=== PATIENT | female | born 1930 | race Caucasian/White ===

== ENCOUNTER 2018-03-06 09:57 | Inpatient (IN) | payer MEDICARE ==
[~2018-03-06] VITALS: Ht 160 cm; Wt 68.0 kg
[2018-03-06 10:00] VITALS: BP 139/90
[2018-03-06] MEDS ORDERED: FERROUS GLUCON324 M2 PO (10:12)
[2018-03-06] MEDS ORDERED: PROSTAT PO (10:12)
[2018-03-06] MEDS ORDERED: CELEBREX200 MG ORAL (10:12)
[2018-03-06] MEDS ORDERED: DOCUSATE SODIU100 MG ORAL (10:12)
[2018-03-06] MEDS ORDERED: NORCO 5-325 TA1 EACH ORAL (10:12)
[2018-03-06] MEDS ORDERED: CALCIUM CARBON500 M1 PO (10:12)
[2018-03-06] MEDS ORDERED: NORCO 10-325 T1 EACH ORAL (10:12)
[2018-03-06] MEDS ORDERED: TAMSULOSIN HCL0.4 MG ORAL (10:12)
[2018-03-06] MEDS ORDERED: MULTIVITAMINS1 EAC2 ORAL (10:12)
[2018-03-06] MEDS ORDERED: GABAPENTIN300 MG ORAL (10:12)
[2018-03-06] MEDS ORDERED: TYLENOL650 MG PO (10:12)
[2018-03-06] MEDS ORDERED: VITAMIN C500 M1 ORAL (10:12)
[2018-03-06] MEDS ORDERED: ATORVASTATIN CA10 MG ORAL (10:12)
[2018-03-06] MEDS ORDERED: ZINC SULFATE220 M1 ORAL (10:12)
[2018-03-06] MEDS ORDERED: ATENOLOL25 MG ORAL (10:12)
[2018-03-06] MEDS ORDERED: Sodium Chloride 1,400 ML IVLG ONE (10:15)
--- NOTE | 2018-03-06 10:24 | Emergency Room Report ---
History of Present Illness General Chief Complaint: General Complaint Source: Medical Record, EMS Present Illness HPI This patient is brought in by EMS. Per report, the patient has had failure to thrive and generalized weakness. They also note hematuria. The patient is nonverbal and unable to articulate any complaints. She has also stopped eating per the medical record and nursing notes. There is no other history of present illness available or documented. Allergies: Coded Allergies: No Known Allergies (Unverified , 03/06/18) Patient History Past Medical History: see triage record, HTN, AFib, dementia, psych hx, other - contractures, DU, muscle wasting. Social History: Denies: smoking, alcohol use, drug use Reviewed Nursing Documentation: PMH: Agreed; PSxH: Agreed Nursing Documentation-PMH Past Medical History: No History, Except For Hx Cardiac Problems: Yes - Afib, hyperlipidemia Hx Hypertension: Yes Hx Gastrointestinal Problems: Yes - dysphagia Review of Systems All Other Systems: limited Physical Exam Vital Signs Date Time Temp Pulse Resp B/P (MAP) Pulse Ox O2 Delivery O2 Flow Rate FiO2 03/06/18 09:51 99.9 153 24 98/64 96 Nasal Cannula 3.0 Sp02 EP Interpretation: reviewed, normal General Appearance: no apparent distress, alert, GCS 15, non-toxic, other - frail, elderly, chronically ill, contracted, non-verbal, Chronically Ill Head: normocephalic, atraumatic Eyes: bilateral eye normal inspection, bilateral eye PERRL ENT: no angioedema Neck: other - flexed. contracted. Respiratory: chest non-tender, lungs clear, normal breath sounds, no respiratory distress, no retraction, no accessory muscle use, speaking full sentences Cardiovascular #1: no edema, tachycardia, systolic murmur, irregularly irregular Gastrointestinal: normal bowel sounds, non tender, soft, non-distended, no guarding, no rebound, other - colostomy bag in place. Rectal: deferred Musculoskeletal: back normal, gait/station normal, normal range of motion, non- tender Neurologic: alert, other - non-focal. Contracted, non-verbal Psychiatric: mood/affect normal Skin: no rash, warm/dry, well hydrated, other - Multiple DU Medical Decision Making Diagnostic Impression: Primary Impression: Pyelonephritis Additional Impressions: Sepsis Pneumonia Hypernatremia Lactic acid acidosis ER Course Initially when this patient was brought in she was very tachycardic with a heart rate in the 140s and 150s. She was given aggressive IV fluid resuscitation and broad-spectrum antibiotics. She is found to have pyelonephritis. Also, chest x-ray there appears to be an early development of an opacity in the right upper lobe that could be an early pneumonia. The patient had significant improvement in her heart rate with heart rates in the 90s primarily. Overall, the patient responded well to treatment in the emergency department. She will be admitted for further evaluation and treatment. This patient is critically ill. This patient required complex medical decision- making, aggressive intervention, extensive laboratory workup and monitoring. Critical care time: 40 minutes. Laboratory Tests Test 03/06/18 10:12 03/06/18 10:25 03/06/18 10:47 White Blood Count 15.7 K/UL (4.8-10.8) H Red Blood Count 4.60 M/UL (4.20-5.40) Hemoglobin 13.3 G/DL (12.0-16.0) Hematocrit 42.1 % (37.0-47.0) Mean Corpuscular Volume 91 FL (80-99) Mean Corpuscular Hemoglobin 28.9 PG (27.0-31.0) Mean Corpuscular Hemoglobin Concent 31.7 G/DL (32.0-36.0) L Red Cell Distribution Width 13.3 % (11.6-14.8) Platelet Count 246 K/UL (150-450) Mean Platelet Volume 5.4 FL (6.5-10.1) L Neutrophils (%) (Auto) 77.5 % (45.0-75.0) H Lymphocytes (%) (Auto) 13.9 % (20.0-45.0) L Monocytes (%) (Auto) 8.1 % (1.0-10.0) Eosinophils (%) (Auto) 0.1 % (0.0-3.0) Basophils (%) (Auto) 0.4 % (0.0-2.0) Prothrombin Time 12.4 SEC (9.30-11.50) H Prothrombin Time INR 1.2 (0.9-1.1) H PTT 29 SEC (23-33) Sodium Level 147 MMOL/L (136-145) H Potassium Level 4.8 MMOL/L (3.5-5.1) Chloride Level 108 MMOL/L (98-107) H Carbon Dioxide Level 30 MMOL/L (21-32) Anion Gap 9 mmol/L (5-15) Blood Urea Nitrogen 18 mg/dL (7-18) Creatinine 0.8 MG/DL (0.55-1.30) Estimate Glomerular Filtration Rate mL/min (>60) Glucose Level 114 MG/DL (74-106) H Lactic Acid Level 3.60 mmol/L (0.4-2.0) H Calcium Level 9.1 MG/DL (8.5-10.1) Phosphorus Level 3.2 MG/DL (2.5-4.9) Magnesium Level 1.9 MG/DL (1.8-2.4) Total Bilirubin 0.6 MG/DL (0.2-1.0) Aspartate Amino Transferase (AST) 27 U/L (15-37) Alanine Aminotransferase (ALT) 16 U/L (12-78) Alkaline Phosphatase 128 U/L (46-116) H Total Creatine Kinase 59 U/L (26-308) Creatine Kinase MB 1.6 NG/ML (0.0-3.6) Creatine Kinase MB Relative Index 2.7 Total Protein 6.7 G/DL (6.4-8.2) Albumin 2.1 G/DL (3.4-5.0) L Globulin 4.6 g/dL Albumin/Globulin Ratio 0.5 (1.0-2.7) L Troponin I 0.033 ng/mL (0.000-0.056) Urine Color Yellow Urine Appearance Cloudy Urine pH 6 (4.5-8.0) Urine Specific [place] 1.020 (1.005-1.035) Urine Protein 4+ (NEGATIVE) H Urine Glucose (UA) Negative (NEGATIVE) Urine Ketones 3+ (NEGATIVE) H Urine Blood 5+ (NEGATIVE) H Urine Nitrite Negative (NEGATIVE) Urine Bilirubin 1+ (NEGATIVE) H Urine Ictotest Negative (NEGATIVE) Urine Urobilinogen Normal MG/DL (0.0-1.0) Urine Leukocyte Esterase 3+ (NEGATIVE) H Urine RBC 30-40 /HPF (0 - 2) H Urine WBC Tntc /HPF (0 - 2) H Urine Squamous Epithelial Cells Few /LPF (NONE/OCC) Urine Bacteria Few /HPF (NONE) Microbiology Date/Time Source Procedure Growth Status 03/06/18 10:12 Nasal Nares Influenza Types A,B Antigen (NGA) - Final Complete EKG Diagnostic Results Rate: tachycardiac Rhythm: other - S.tachycardia ST Segments: no acute changes Rhythm Strip Diag. Results EP Interpretation: yes Rate: 130's Rhythm: no PVC's, no ectopy, other - S.tachycardia Chest X-Ray Diagnostic Results Chest X-Ray Diagnostic Results : Chest X-Ray Ordered: Yes # of Views/Limited/Complete: 1 View Indication: Other EP Interpretation: No Interpretation: other - Questionable opacity RUL Impression: Other - See above Electronically Signed by: Halima Chery DO Last Vital Signs Date Time Temp Pulse Resp B/P (MAP) Pulse Ox O2 Delivery O2 Flow Rate FiO2 03/06/18 09:51 99.9 153 24 98/64 96 Nasal Cannula 3.0 Disposition: ADMITTED INPATIENT Condition: Serious Halima Chery DO Mar 06, 2018 10:24
[2018-03-06 10:38] LABS: BASOPHILS % (AUTO) 0.4 % (0.0-2.0); EOSINOPHILS % (AUTO) 0.1 % (0.0-3.0); HEMATOCRIT 42.1 % (37.0-47.0); HEMOGLOBIN 13.3 G/DL (12.0-16.0); LYMPHOCYTES % (AUTO) 13.9 % (20.0-45.0); MEAN CORPUSCULAR VOLUME 91 FL (80-99); MONOCYTES % (AUTO) 8.1 % (1.0-10.0); NEUTROPHILS % (AUTO) 77.5 % (45.0-75.0); PLATELET COUNT 246 K/UL (150-450); RED CELL DISTRIBUTION WIDTH 13.3 % (11.6-14.8); WHITE BLOOD COUNT 15.7 K/UL (4.8-10.8)
[2018-03-06 10:50] LABS: ANION GAP 9 mmol/L (5-15); BLOOD UREA NITROGEN 18 mg/dL (7-18); CALCIUM 9.1 MG/DL (8.5-10.1); CARBON DIOXIDE 30 MMOL/L (21-32); CHLORIDE 108 MMOL/L (98-107); CREATININE 0.8 MG/DL (0.55-1.30); POTASSIUM 4.8 MMOL/L (3.5-5.1); SODIUM 147 MMOL/L (136-145)
[2018-03-06 10:53] LABS: INR 1.2 (0.9-1.1)
--- NOTE | 2018-03-06 10:59 | Diagnostic Imaging Report ---
Indication: Shortness of breath Technique: XRAY Chest 1v Comparison: None Findings: Limited exam with patient rotated and leaning to the left. Heart size appears within the upper limits for normal. Atherosclerotic calcifications noted in a tortuous aorta. There is some subtle patchy opacities in the right upper lung. Developing pneumonia not excludable. No pleural effusion or pneumothorax. There is osteopenia and degenerative change of the spine. Impression: * Subtle patchy opacities in the right upper lung raising question for developing pneumonia. Clinical correlation/follow-up recommended. * Atherosclerotic disease. * Osteopenia.
[2018-03-06 11:02] LABS: ALANINE AMINOTRANSFERASE 16 U/L (12-78); ALBUMIN 2.1 G/DL (3.4-5.0); ALBUMIN/GLOBULIN RATIO 0.5 (1.0-2.7); ALKALINE PHOSPHATASE 128 U/L (46-116); ASPARTATE AMINO TRANSFERASE 27 U/L (15-37); BILIRUBIN,TOTAL 0.6 MG/DL (0.2-1.0); CKMB 1.6 NG/ML (0.0-3.6); CREATINE KINASE 59 U/L (26-308); PHOSPHORUS 3.2 MG/DL (2.5-4.9)
[2018-03-06] MEDS ORDERED: Meropenem 1 GM in NS 55 ML IVPB ONE (11:15)
[2018-03-06 11:35] LABS: APPEARANCE,URINE CLOUDY; BILIRUBIN, URINE 1+ (NEGATIVE); GLUCOSE, URINE (UA) NEGATIVE (NEGATIVE); KETONES,URINE 3+ (NEGATIVE); LEUKOCYTE ESTERASE ,URINE 3+ (NEGATIVE); NITRITE,URINE NEGATIVE (NEGATIVE); PH,URINE 6 (4.5-8.0); PROTEIN,URINE 4+ (NEGATIVE); UROBILINOGEN,URINE NORMAL MG/DL (0.0-1.0)
[2018-03-06 11:37] LABS: COLOR,URINE YELLOW
[2018-03-06] MEDS ORDERED: Albuterol/Ipratropium 3ml neb HHN PRN (13:30)
[2018-03-06] MEDS ORDERED: Nitroglycerin Subl 0.4mg tab SL PRN (13:30)
[2018-03-06] MEDS ORDERED: Mylanta II UD 30ml ORAL PRN (13:30)
[2018-03-06] MEDS ORDERED: Promethazine/Codeine 5ml UD ORAL PRN (13:30)
[2018-03-06] MEDS ORDERED: Miralax 17gm pkt ORAL PRN (13:30)
--- NOTE | 2018-03-06 14:24 | Consultation ---
History of Present Illness General Date patient seen: Mar 06, 2018 Chief Complaint: General Complaint Present Illness HPI 87 y/o F with hx of HTN, Afib, dysphagia, HLD, Dementia, contractures presents to ED on 03/06 with FTT and generalized weakness. Also there was reported hematuria. Allergies: Coded Allergies: No Known Allergies (Unverified , 03/06/18) Medication History Scheduled Ascorbic Acid* (Vitamin C*), 500 MG ORAL TWICE A DAY, (Reported) Atenolol* (Tenormin*), 25 MG ORAL DAILY, (Reported) Atorvastatin Calcium* (Lipitor*), 10 MG ORAL BEDTIME, (Reported) Celecoxib* (Celebrex*), 200 MG ORAL TWICE A DAY, (Reported) Docusate Sodium* (Docusate Sodium*), 100 MG ORAL TWICE A DAY, (Reported) Ferrous Gluconate (Ferrous Gluconate), 324 MG PO BID, (Reported) Gabapentin* (Gabapentin*), 300 MG ORAL THREE TIMES A DAY, (Reported) Multivitamins* (Multivitamins*), 1 TAB ORAL DAILY, (Reported) Tamsulosin Hcl (Tamsulosin Hcl*), 0.4 MG ORAL BEDTIME, (Reported) Zinc Sulfate (Zinc Sulfate*), 220 MG ORAL DAILY, (Reported) [Prostat], 30 ML PO DAILY, (Reported) Scheduled PRN Acetaminophen (Acetaminophen), 650 MG PO Q4HR PRN for Fever/Headache/Mild Pain, (Reported) Calcium Carbonate (Calcium Carbonate), 500 MG PO Q6HR PRN for For Pain, ( Reported) Hydrocodone Bit/Acetaminophen 10-325* ([place] 10-325*), 1 TAB ORAL Q4H PRN for For Pain, (Reported) Hydrocodone Bit/Acetaminophen 5-325* ([place] 5-325*), 1 TAB ORAL Q4H PRN for For Pain, (Reported) Patient History Healthcare decision maker Resuscitation status Advanced Directive on File Patient History Narrative Pmhx: as above Shx: reviewed Fhx: non contributory Physical Exam Physical Exam Narrative General Appearance: no apparent distress, alert, GCS 15, non-toxic, other - frail, elderly, chronically ill, contracted, non-verbal, Chronically Ill HEENT: normocephalic, atraumatic, bilateral eye normal inspection, bilateral eye PERRL Respiratory: chest non-tender, lungs clear, normal breath sounds, no respiratory distress, no retraction, no accessory muscle use, speaking full sentences Cardiovascular : no edema, tachycardia, systolic murmur, irregularly irregular Gastrointestinal: normal bowel sounds, non tender, soft, non-distended, no guarding, no rebound, other - colostomy bag in place. Musculoskeletal: back normal, gait/station normal, normal range of motion, non- tender Neurologic: alert, other - non-focal. Contracted, non-verbal Skin: no rash, warm/dry, well hydrated, other - Multiple DU Last 24 Hour Vital Signs Date Time Temp Pulse Resp B/P (MAP) Pulse Ox O2 Delivery O2 Flow Rate FiO2 03/06/18 14:06 98.4 103 18 128/75 100 Nasal Cannula 2.0 03/06/18 10:00 129 31 Nasal Cannula 2.0 03/06/18 10:00 100.6 129 31 139/90 99 Nasal Cannula 2.0 03/06/18 09:51 99.9 153 24 98/64 96 Nasal Cannula 3.0 Laboratory Tests Test 03/06/18 10:12 03/06/18 10:25 03/06/18 10:47 03/06/18 12:10 White Blood Count 15.7 K/UL (4.8-10.8) H Red Blood Count 4.60 M/UL (4.20-5.40) Hemoglobin 13.3 G/DL (12.0-16.0) Hematocrit 42.1 % (37.0-47.0) Mean Corpuscular Volume 91 FL (80-99) Mean Corpuscular Hemoglobin 28.9 PG (27.0-31.0) Mean Corpuscular Hemoglobin Concent 31.7 G/DL (32.0-36.0) L Red Cell Distribution Width 13.3 % (11.6-14.8) Platelet Count 246 K/UL (150-450) Mean Platelet Volume 5.4 FL (6.5-10.1) L Neutrophils (%) (Auto) 77.5 % (45.0-75.0) H Lymphocytes (%) (Auto) 13.9 % (20.0-45.0) L Monocytes (%) (Auto) 8.1 % (1.0-10.0) Eosinophils (%) (Auto) 0.1 % (0.0-3.0) Basophils (%) (Auto) 0.4 % (0.0-2.0) Prothrombin Time 12.4 SEC (9.30-11.50) H Prothromb Time International Ratio 1.2 (0.9-1.1) H Activated Partial Thromboplast Time 29 SEC (23-33) Sodium Level 147 MMOL/L (136-145) H Potassium Level 4.8 MMOL/L (3.5-5.1) Chloride Level 108 MMOL/L (98-107) H Carbon Dioxide Level 30 MMOL/L (21-32) Anion Gap 9 mmol/L (5-15) Blood Urea Nitrogen 18 mg/dL (7-18) Creatinine 0.8 MG/DL (0.55-1.30) Estimat Glomerular Filtration Rate mL/min (>60) Glucose Level 114 MG/DL (74-106) H Lactic Acid Level 3.60 mmol/L (0.4-2.0) H Pending Calcium Level 9.1 MG/DL (8.5-10.1) Phosphorus Level 3.2 MG/DL (2.5-4.9) Magnesium Level 1.9 MG/DL (1.8-2.4) Total Bilirubin 0.6 MG/DL (0.2-1.0) Aspartate Amino Transf (AST/SGOT) 27 U/L (15-37) Alanine Aminotransferase (ALT/SGPT) 16 U/L (12-78) Alkaline Phosphatase 128 U/L (46-116) H Total Creatine Kinase 59 U/L (26-308) Creatine Kinase MB 1.6 NG/ML (0.0-3.6) Creatine Kinase MB Relative Index 2.7 Total Protein 6.7 G/DL (6.4-8.2) Albumin 2.1 G/DL (3.4-5.0) L Globulin 4.6 g/dL Albumin/Globulin Ratio 0.5 (1.0-2.7) L Troponin I 0.033 ng/mL (0.000-0.056) Urine Color Yellow Urine Appearance Cloudy Urine pH 6 (4.5-8.0) Urine Specific [place] 1.020 (1.005-1.035) Urine Protein 4+ (NEGATIVE) H Urine Glucose (UA) Negative (NEGATIVE) Urine Ketones 3+ (NEGATIVE) H Urine Blood 5+ (NEGATIVE) H Urine Nitrite Negative (NEGATIVE) Urine Bilirubin 1+ (NEGATIVE) H Urine Ictotest Negative (NEGATIVE) Urine Urobilinogen Normal MG/DL (0.0-1.0) Urine Leukocyte Esterase 3+ (NEGATIVE) H Urine RBC 30-40 /HPF (0 - 2) H Urine WBC Tntc /HPF (0 - 2) H Urine Squamous Epithelial Cells Few /LPF (NONE/OCC) Urine Bacteria Few /HPF (NONE) Microbiology Date/Time Source Procedure Growth Status 03/06/18 10:12 Nasal Nares Influenza Types A,B Antigen (NGA) - Final Complete Height (Feet): 5 Height (Inches): 3.00 Weight (Pounds): 100 Medications Current Medications Medications (Trade) Dose Ordered Sig/Cele Route PRN Reason Start Time Stop Time Status Last Admin Dose Admin Acetaminophen (Tylenol) 650 mg Q4H PRN ORAL fever (temp>100.5F) 03/06/18 13:30 04/05/18 13:29 Al Hydroxide/Mg Hydroxide (Mylanta II) 30 ml Q6H PRN ORAL dyspepsia 03/06/18 13:30 04/05/18 13:29 Albuterol/ Ipratropium (Albuterol/ Ipratropium) 3 ml Q4H PRN HHN Shortness of Breath 03/06/18 13:30 03/11/18 13:29 Atenolol (Tenormin) 25 mg DAILY ORAL 03/07/18 09:00 04/06/18 08:59 Cefepime HCl 2 gm/ Dextrose 110 ml @ 220 mls/hr DAILY IV 03/06/18 15:00 03/13/18 14:59 Gabapentin (Neurontin) 300 mg THREE TIMES A DAY ORAL 03/06/18 18:00 04/05/18 17:59 Heparin Sodium (Porcine) (Heparin 5000 units/ml) 5,000 units EVERY 12 HOURS SUBQ 03/06/18 21:00 04/05/18 20:59 Nitroglycerin (Ntg) 0.4 mg Q5M PRN SL Prn Chest Pain 03/06/18 13:30 04/05/18 13:29 Ondansetron HCl (Zofran) 4 mg Q6H PRN IVP Nausea & Vomiting 03/06/18 13:30 04/05/18 13:29 Polyethylene Glycol (Miralax) 17 gm DAILYPRN PRN ORAL Constipation 03/06/18 13:30 04/05/18 13:29 Promethazine HCl/ Codeine (Phenergan with Codeine) 5 ml Q4H PRN ORAL For Cough 03/06/18 13:30 04/05/18 13:29 Tamsulosin HCl (Flomax) 0.4 mg BEDTIME ORAL 03/06/18 21:00 04/05/18 20:59 Temazepam (Restoril) 15 mg HSPRN PRN ORAL Insomnia 03/06/18 13:30 03/13/18 13:29 Vancomycin HCl (Vanco rx to dose) 1 ea DAILY PRN MISC Per rx protocol 03/06/18 13:30 04/05/18 13:29 Vancomycin HCl 500 mg/Dextrose 110 ml @ 110 mls/hr Q24H IVPB 03/07/18 16:00 03/12/18 15:59 Vancomycin HCl 1 gm/Dextrose 275 ml @ 183.708 mls/hr ONCE ONCE IVPB 03/06/18 16:00 03/06/18 17:29 Assessment/Plan Assessment/Plan Abx: IV Vancomycin 03/06- Cefepime 03/06 Meropenem x1 03/06 Assessment: Sepsis 2ry to UTI and prob early PNA -u/a wbc tntc, nit neg, luek +3; ucx p -CXR: Subtle patchy opacities in the right upper lung raising question for developing pneumonia. Clinical correlation/follow-up recommended. -influenza sc Low grade fever Leukocytosis FTT HTN Afib dysphagia HLD Dementia contractures Plan: -Continue empiric IV Vancomycin and Cefepime pending cultures -sp cx, legionella ag urine -f/u cx -Monitor CBC/CMP, temperatures -aspiration precautions Thank you for this consultation. Will continue to follow along with you. Discussed with Sussy Cole M.D. Mar 06, 2018 14:24
[2018-03-06] MEDS: Cefepime 2gm/D5W 110ml IV SCH ×2 (15:07)
[2018-03-06] MEDS ORDERED: Vancomycin 1gm/D5W 275ml IVPB ONE ×2 (16:00)
[2018-03-06 20:00] VITALS: BP 102/82
[2018-03-06] MEDS ORDERED: Tamsulosin 0.4mg cap ORAL SCH (21:00)
[2018-03-06] MEDS ORDERED: Cefepime HCl 1 GM in D5W 55 ML IV SCH (21:00)
[2018-03-06] MEDS: Heparin 5000 units/ml inj SUBQ SCH (22:11)
[2018-03-07] VITALS: BP 115/83
[2018-03-07 06:32] LABS: BASOPHILS % (AUTO) 0.7 % (0.0-2.0); EOSINOPHILS % (AUTO) 0.4 % (0.0-3.0); HEMATOCRIT 37.1 % (37.0-47.0); LYMPHOCYTES % (AUTO) 18.4 % (20.0-45.0); MEAN CORPUSCULAR VOLUME 93 FL (80-99); MONOCYTES % (AUTO) 10.4 % (1.0-10.0); NEUTROPHILS % (AUTO) 70.1 % (45.0-75.0); PLATELET COUNT 164 K/UL (150-450); RED BLOOD COUNT 4.01 M/UL (4.20-5.40); RED CELL DISTRIBUTION WIDTH 13.4 % (11.6-14.8); WHITE BLOOD COUNT 10.2 K/UL (4.8-10.8)
[2018-03-07 07:07] LABS: ALBUMIN 1.8 G/DL (3.4-5.0); ANION GAP 9 mmol/L (5-15); BLOOD UREA NITROGEN 15 mg/dL (7-18); CALCIUM 8.9 MG/DL (8.5-10.1); CARBON DIOXIDE 26 MMOL/L (21-32); CHLORIDE 114 MMOL/L (98-107); CREATININE 0.7 MG/DL (0.55-1.30); POTASSIUM 4.5 MMOL/L (3.5-5.1); SODIUM 149 MMOL/L (136-145)
[2018-03-07 08:00] VITALS: BP 115/69
[2018-03-07] MEDS ORDERED: Atenolol 25mg tab ORAL SCH (09:00)
[2018-03-07] MEDS: Cefepime 2gm/D5W 110ml IV SCH ×2 (09:11)
[2018-03-07] MEDS: Heparin 5000 units/ml inj SUBQ SCH ×2 (09:12→20:40)
[2018-03-07 12:00] VITALS: BP 103/62
--- NOTE | 2018-03-07 14:36 | GI Initial Consult Note ---
History of Present Illness General Date patient seen: Mar 07, 2018 Reason for Hospitalization: General Complaint Referring physician: LANA OSBORNE Reason for Consultation: Dysphagia Present Illness HPI This patient is brought in by EMS. Per report, the patient has had failure to thrive and generalized weakness. They also note hematuria. The patient is nonverbal and unable to articulate any complaints. She has also stopped eating per the medical record and nursing notes. There is no other history of present illness available or documented. GI consulted for dysphasia. ROS limited, the patient was seen awake and alert nonverbal with no active signs of nausea or vomiting. Per report from the speech therapist the patient unable to follow commands and participate in the swallow study. No video swallow performed. Labs reviewed; resolved leukocytosis, hypernatremia, elevated alkaline phosphatase. No anemia. Unknown history of endoscopic or colonoscopy. Home Meds Reported Medications Acetaminophen (Acetaminophen) 650 Mg Supp.rect, 650 MG PO Q4HR PRN for Fever/ Headache/Mild Pain, SUPP 0 Refills 03/06/18 Hydrocodone Bit/Acetaminophen 5-325* ([place] 5-325*) 1 Each Tablet, 1 TAB ORAL Q4H PRN for For Pain, TAB 0 Refills 03/06/18 Hydrocodone Bit/Acetaminophen 10-325* ([place] 10-325*) 1 Each Tablet, 1 TAB ORAL Q4H PRN for For Pain, TAB 0 Refills PRN PAIN 03/06/18 Calcium Carbonate (CALCIUM CARBONATE) 500 Mg Tablet, 500 MG PO Q6HR PRN for For Pain, TAB 03/06/18 Tamsulosin Hcl (TAMSULOSIN HCL*) 0.4 Mg Cap.er.24h, 0.4 MG ORAL BEDTIME, CAP 03/06/18 [Prostat] No Conflict Check, 30 ML PO DAILY 03/06/18 Zinc Sulfate (ZINC SULFATE*) 220 Mg Capsule, 220 MG ORAL DAILY, CAP 0 Refills 03/06/18 Multivitamins* (MULTIVITAMINS*) 1 Each Tablet, 1 TAB ORAL DAILY, TAB 0 Refills 03/06/18 Atorvastatin Calcium* (LIPITOR*) 10 Mg Tablet, 10 MG ORAL BEDTIME, TAB 03/06/18 Gabapentin* (GABAPENTIN*) 300 Mg Capsule, 300 MG ORAL THREE TIMES A DAY, CAP 0 Refills 03/06/18 Ferrous Gluconate (FERROUS GLUCONATE) 324 Mg Tablet, 324 MG PO BID, TAB 03/06/18 Docusate Sodium* (DOCUSATE SODIUM*) 100 Mg Capsule, 100 MG ORAL TWICE A DAY, CAP 03/06/18 Celecoxib* (CELEBREX*) 200 Mg Capsule, 200 MG ORAL TWICE A DAY, CAP 03/06/18 Atenolol* (TENORMIN*) 25 Mg Tablet, 25 MG ORAL DAILY, TAB 03/06/18 Ascorbic Acid* (VITAMIN C*) 500 Mg Tablet, 500 MG ORAL TWICE A DAY, TAB 03/06/18 Med list reviewed/reconciled: Yes Allergies: Coded Allergies: No Known Allergies (Unverified , 03/06/18) Patient History Limited by: medical condition History Provided By: Medical Record PMH Narrative Past Medical History: see triage record, HTN, AFib, dementia, psych hx, other - contractures, DU, muscle wasting. Social History: Denies: smoking, alcohol use, drug use Reviewed Nursing Documentation: PMH: Agreed; PSxH: Agreed Nursing Documentation-PMH Past Medical History: No History, Except For Hx Cardiac Problems: Yes - Afib, hyperlipidemia Hx Hypertension: Yes Hx Gastrointestinal Problems: Yes - dysphagia Social History: Denies: smoking, alcohol use, drug use, other Review of Systems All Other Systems: limited Physical Exam Vital Signs Date Time Temp Pulse Resp B/P (MAP) Pulse Ox O2 Delivery O2 Flow Rate FiO2 03/06/18 09:51 99.9 153 24 98/64 96 Nasal Cannula 3.0 03/06/18 20:20 28 Sp02 EP Interpretation: reviewed, normal Labs Laboratory Tests Test 03/07/18 06:00 White Blood Count 10.2 K/UL (4.8-10.8) Red Blood Count 4.01 M/UL (4.20-5.40) L Hemoglobin 12.0 G/DL (12.0-16.0) Hematocrit 37.1 % (37.0-47.0) Mean Corpuscular Volume 93 FL (80-99) Mean Corpuscular Hemoglobin 29.8 PG (27.0-31.0) Mean Corpuscular Hemoglobin Concent 32.2 G/DL (32.0-36.0) Red Cell Distribution Width 13.4 % (11.6-14.8) Platelet Count 164 K/UL (150-450) Mean Platelet Volume 5.5 FL (6.5-10.1) L Neutrophils (%) (Auto) 70.1 % (45.0-75.0) Lymphocytes (%) (Auto) 18.4 % (20.0-45.0) L Monocytes (%) (Auto) 10.4 % (1.0-10.0) H Eosinophils (%) (Auto) 0.4 % (0.0-3.0) Basophils (%) (Auto) 0.7 % (0.0-2.0) Sodium Level 149 MMOL/L (136-145) H Potassium Level 4.5 MMOL/L (3.5-5.1) Chloride Level 114 MMOL/L (98-107) H Carbon Dioxide Level 26 MMOL/L (21-32) Anion Gap 9 mmol/L (5-15) Blood Urea Nitrogen 15 mg/dL (7-18) Creatinine 0.7 MG/DL (0.55-1.30) Estimat Glomerular Filtration Rate mL/min (>60) Glucose Level 89 MG/DL (74-106) Calcium Level 8.9 MG/DL (8.5-10.1) Phosphorus Level 3.0 MG/DL (2.5-4.9) Albumin 1.8 G/DL (3.4-5.0) L General Appearance: well appearing, no apparent distress, alert Head: normocephalic EENT: PERRL/EOMI, normal ENT inspection Neck: supple Respiratory: normal breath sounds, no respiratory distress Cardiovascular: normal rate Gastrointestinal: normal inspection, non tender, soft, normal bowel sounds, non -distended Rectal: deferred Genitourinary: no CVA tenderness Musculoskeletal: other - Overall weakness Skin: normal inspection, normal color, no rash, warm/dry, palpation normal, well hydrated Lymphatic: normal inspection, no adenopathy Current Medications Current Medications Medications (Trade) Dose Ordered Sig/Cele Route PRN Reason Start Time Stop Time Status Last Admin Dose Admin Acetaminophen (Tylenol) 650 mg Q4H PRN ORAL fever (temp>100.5F) 03/06/18 13:30 04/05/18 13:29 03/07/18 06:28 Al Hydroxide/Mg Hydroxide (Mylanta II) 30 ml Q6H PRN ORAL dyspepsia 03/06/18 13:30 04/05/18 13:29 Albuterol/ Ipratropium (Albuterol/ Ipratropium) 3 ml Q4H PRN HHN Shortness of Breath 03/06/18 13:30 03/11/18 13:29 Atenolol (Tenormin) 25 mg DAILY ORAL 03/07/18 09:00 04/06/18 08:59 03/07/18 09:11 Cefepime HCl 2 gm/ Dextrose 110 ml @ 220 mls/hr DAILY IV 03/06/18 15:00 03/13/18 14:59 03/07/18 09:11 Gabapentin (Neurontin) 300 mg THREE TIMES A DAY ORAL 03/06/18 18:00 04/05/18 17:59 03/07/18 09:11 Heparin Sodium (Porcine) (Heparin 5000 units/ml) 5,000 units EVERY 12 HOURS SUBQ 03/06/18 21:00 04/05/18 20:59 03/07/18 09:12 Nitroglycerin (Ntg) 0.4 mg Q5M PRN SL Prn Chest Pain 03/06/18 13:30 04/05/18 13:29 Ondansetron HCl (Zofran) 4 mg Q6H PRN IVP Nausea & Vomiting 03/06/18 13:30 04/05/18 13:29 Polyethylene Glycol (Miralax) 17 gm DAILYPRN PRN ORAL Constipation 03/06/18 13:30 04/05/18 13:29 Promethazine HCl/ Codeine (Phenergan with Codeine) 5 ml Q4H PRN ORAL For Cough 03/06/18 13:30 04/05/18 13:29 Tamsulosin HCl (Flomax) 0.4 mg BEDTIME ORAL 03/06/18 21:00 04/05/18 20:59 03/06/18 22:09 Temazepam (Restoril) 15 mg HSPRN PRN ORAL Insomnia 03/06/18 13:30 03/13/18 13:29 03/06/18 22:09 Vancomycin HCl (Vanco rx to dose) 1 ea DAILY PRN MISC Per rx protocol 03/06/18 13:30 04/05/18 13:29 Vancomycin HCl 500 mg/Dextrose 110 ml @ 110 mls/hr Q24H IVPB 03/07/18 16:00 03/12/18 15:59 GI: Plan Problems: (1) Dysphasia (2) Severe malnutrition (3) Dehydration (4) Encounter for PEG (percutaneous endoscopic gastrostomy) (5) Electrolyte imbalance Plan Possible PEG to be scheduled this Saturday [place] 10 [place] inserted today, okay to use after imaging confirmation Tube feedings per RD to goal Supportive care ppi fu labs We will follow with additional recommendations over the weekend Discussed with Dr. Velez. Thank you for this patient referral, we will follow. The patient was seen and examined at bedside and all new and available data was reviewed in the patients chart. I agree with the above findings, impression and plan. (Patient seen earlier today. Signature stamp does not reflect patient encounter time.). - MD Lissett LarsenCobre Valley Regional Medical CenterJose A GEOTHERMAL PLANT MANAGER Mar 07, 2018 14:36
--- NOTE | 2018-03-07 14:46 | Infectious Diseases Prog Note ---
Assessment/Plan Assessment/Plan Abx: IV Vancomycin 03/06- Cefepime 03/06 Meropenem x1 03/06 Assessment: Sepsis 2ry to UTI c/w bacteremia and prob early PNA -u/a wbc tntc, nit neg, luek +3; ucx >100k GNR -Bcx 06/19 GNRs -CXR: Subtle patchy opacities in the right upper lung raising question for developing pneumonia. Clinical correlation/follow-up recommended. -influenza sc neg Low grade fever, improving Leukocytosis, SP FTT HTN Afib dysphagia HLD Dementia contractures Plan: -Continue empiric IV Vancomycin and Cefepime #2 pending cultures -low threshold to switch Cefepime to Meropenem if HD decompensation -f/u sp cx, legionella ag urine -Bcx x2 -f/u cx -Monitor CBC/CMP, temperatures -aspiration precautions Subjective Allergies: Coded Allergies: No Known Allergies (Unverified , 03/06/18) Subjective afebrile in 24hr leukocytosi rseolved bacteremic GNRs Objective Vital Signs Last 24 Hour Vital Signs Date Time Temp Pulse Resp B/P (MAP) Pulse Ox O2 Delivery O2 Flow Rate FiO2 03/07/18 09:11 142 122/83 03/07/18 09:00 Nasal Cannula 2.0 03/07/18 08:00 134 03/07/18 08:00 98.5 57 20 115/69 (84) 97 03/07/18 07:55 116 20 100 Nasal Cannula 2.0 28 03/07/18 07:48 131 20 100 Nasal Cannula 2.0 03/07/18 04:00 03/07/18 04:00 66 03/07/18 03:25 116 24 99 Nasal Cannula 2.0 28 03/07/18 03:20 114 20 98 Nasal Cannula 2.0 28 03/07/18 00:00 122 03/07/18 00:00 99.1 118 20 115/83 (94) 98 03/06/18 23:46 119 22 98 Nasal Cannula 2.0 28 03/06/18 23:46 122 22 99 Nasal Cannula 2.0 28 03/06/18 21:00 Nasal Cannula 2.0 03/06/18 20:21 121 22 99 Nasal Cannula 2.0 28 03/06/18 20:20 117 22 98 Nasal Cannula 2.0 28 03/06/18 20:00 108 03/06/18 20:00 98.9 113 22 102/82 (89) 98 03/06/18 16:00 107 Height (Feet): 5 Height (Inches): 3.00 Weight (Pounds): 100 Objective General Appearance: no apparent distress, alert, GCS 15, non-toxic, other - frail, elderly, chronically ill, contracted, non-verbal, Chronically Ill HEENT: normocephalic, atraumatic, bilateral eye normal inspection, bilateral eye PERRL Respiratory: chest non-tender, lungs clear, normal breath sounds, no respiratory distress, no retraction, no accessory muscle use, speaking full sentences Cardiovascular : no edema, tachycardia, systolic murmur, irregularly irregular Gastrointestinal: normal bowel sounds, non tender, soft, non-distended, no guarding, no rebound, other - colostomy bag in place. Musculoskeletal: back normal, gait/station normal, normal range of motion, non- tender Neurologic: alert, other - non-focal. Contracted, non-verbal Skin: no rash, warm/dry, well hydrated, other - Multiple DU Microbiology Date/Time Source Procedure Growth Status 03/06/18 10:12 Blood Blood Culture - Preliminary Resulted 03/06/18 09:57 Blood Blood Culture - Preliminary Resulted 03/06/18 15:07 Sputum Induced Gram Stain - Final Resulted 03/06/18 15:07 Sputum Induced Sputum Culture Pending Resulted 03/06/18 13:20 Nasal Nares MRSA Culture - Final Staphylococcus Aureus - Mrsa Complete 03/06/18 10:12 Nasal Nares Influenza Types A,B Antigen (NGA) - Final Complete 03/06/18 10:47 Urine,Clean Catch Urine Culture - Preliminary Gram Negative Bacillus 1 Resulted Laboratory Tests Test 03/07/18 06:00 White Blood Count 10.2 K/UL (4.8-10.8) Red Blood Count 4.01 M/UL (4.20-5.40) L Hemoglobin 12.0 G/DL (12.0-16.0) Hematocrit 37.1 % (37.0-47.0) Mean Corpuscular Volume 93 FL (80-99) Mean Corpuscular Hemoglobin 29.8 PG (27.0-31.0) Mean Corpuscular Hemoglobin Concent 32.2 G/DL (32.0-36.0) Red Cell Distribution Width 13.4 % (11.6-14.8) Platelet Count 164 K/UL (150-450) Mean Platelet Volume 5.5 FL (6.5-10.1) L Neutrophils (%) (Auto) 70.1 % (45.0-75.0) Lymphocytes (%) (Auto) 18.4 % (20.0-45.0) L Monocytes (%) (Auto) 10.4 % (1.0-10.0) H Eosinophils (%) (Auto) 0.4 % (0.0-3.0) Basophils (%) (Auto) 0.7 % (0.0-2.0) Sodium Level 149 MMOL/L (136-145) H Potassium Level 4.5 MMOL/L (3.5-5.1) Chloride Level 114 MMOL/L (98-107) H Carbon Dioxide Level 26 MMOL/L (21-32) Anion Gap 9 mmol/L (5-15) Blood Urea Nitrogen 15 mg/dL (7-18) Creatinine 0.7 MG/DL (0.55-1.30) Estimat Glomerular Filtration Rate mL/min (>60) Glucose Level 89 MG/DL (74-106) Calcium Level 8.9 MG/DL (8.5-10.1) Phosphorus Level 3.0 MG/DL (2.5-4.9) Albumin 1.8 G/DL (3.4-5.0) L Current Medications Medications (Trade) Dose Ordered Sig/Cele Route PRN Reason Start Time Stop Time Status Last Admin Dose Admin Acetaminophen (Tylenol) 650 mg Q4H PRN ORAL fever (temp>100.5F) 03/06/18 13:30 04/05/18 13:29 03/07/18 06:28 Al Hydroxide/Mg Hydroxide (Mylanta II) 30 ml Q6H PRN ORAL dyspepsia 03/06/18 13:30 04/05/18 13:29 Albuterol/ Ipratropium (Albuterol/ Ipratropium) 3 ml Q4H PRN HHN Shortness of Breath 03/06/18 13:30 03/11/18 13:29 Atenolol (Tenormin) 25 mg DAILY ORAL 03/07/18 09:00 04/06/18 08:59 03/07/18 09:11 Cefepime HCl 2 gm/ Dextrose 110 ml @ 220 mls/hr DAILY IV 03/06/18 15:00 03/13/18 14:59 03/07/18 09:11 Gabapentin (Neurontin) 300 mg THREE TIMES A DAY ORAL 03/06/18 18:00 04/05/18 17:59 03/07/18 09:11 Heparin Sodium (Porcine) (Heparin 5000 units/ml) 5,000 units EVERY 12 HOURS SUBQ 03/06/18 21:00 04/05/18 20:59 03/07/18 09:12 Nitroglycerin (Ntg) 0.4 mg Q5M PRN SL Prn Chest Pain 03/06/18 13:30 04/05/18 13:29 Ondansetron HCl (Zofran) 4 mg Q6H PRN IVP Nausea & Vomiting 03/06/18 13:30 04/05/18 13:29 Polyethylene Glycol (Miralax) 17 gm DAILYPRN PRN ORAL Constipation 03/06/18 13:30 04/05/18 13:29 Promethazine HCl/ Codeine (Phenergan with Codeine) 5 ml Q4H PRN ORAL For Cough 03/06/18 13:30 04/05/18 13:29 Tamsulosin HCl (Flomax) 0.4 mg BEDTIME ORAL 03/06/18 21:00 04/05/18 20:59 03/06/18 22:09 Temazepam (Restoril) 15 mg HSPRN PRN ORAL Insomnia 03/06/18 13:30 03/13/18 13:29 03/06/18 22:09 Vancomycin HCl (Vanco rx to dose) 1 ea DAILY PRN MISC Per rx protocol 03/06/18 13:30 04/05/18 13:29 Vancomycin HCl 500 mg/Dextrose 110 ml @ 110 mls/hr Q24H IVPB 03/07/18 16:00 03/12/18 15:59 Sussy Daniel M.D. Mar 07, 2018 14:46
--- NOTE | 2018-03-07 15:55 | History & Physical ---
History and Physical History & Physicial Dictated for Int Med-Dr Scott no. [id number]. Shankar Betts MD Mar 07, 2018 15:55
[2018-03-07 16:00] VITALS: BP 81/45
[2018-03-07] MEDS ORDERED: Vancomycin 500mg/D5W 110ml IVPB SCH ×2 (16:00)
--- NOTE | 2018-03-07 16:09 | Diagnostic Imaging Report ---
Indication: Post nasogastric tube placement Technique: Supine view of the upper abdomen Comparison: none Findings: Course of nasogastric tube is indicative of placement within the right lower lobe bronchus There is some consolidation at the left lung base. The visualized bowel gas is unremarkable. A surgical clip or T-fastener is seen in the mid abdomen just to the left of midline Impression: Malposition of nasogastric tube, within a right lower lobe bronchus. Per technologist note, the nasogastric tube was removed immediately after the radiograph was taken. A subsequent radiograph documents intragastric position of a new feeding tube
--- NOTE | 2018-03-07 16:57 | Diagnostic Imaging Report ---
Indication: Status post nasogastric tube repositioning Technique: Supine view of the abdomen Comparison: One hour earlier Findings: Interim placement of a weighted nasogastric feeding tube, tip appearing coiled in the gastric fundus, in satisfactory position. Surgical hardware is seen in the bilateral iliac bones. A surgical clip or T-fastener projects in the mid abdomen to the left of midline. Bowel gas pattern is unremarkable Impression: Satisfactory nasogastric tube position. Other findings as noted
[2018-03-07] MEDS ORDERED: D5 1/2NS w/KCL 10meq 1,000 ML IV SCH (17:00)
[2018-03-07] MEDS ORDERED: Nitroglycerin Subl 0.4mg tab SL PRN (17:11)
[2018-03-07] MEDS ORDERED: Albuterol/Ipratropium 3ml neb HHN PRN (17:11)
[2018-03-07] MEDS ORDERED: Mylanta II UD 30ml ORAL PRN (17:11)
[2018-03-07] MEDS ORDERED: Promethazine/Codeine 5ml UD ORAL PRN (17:12)
[2018-03-07] MEDS ORDERED: Miralax 17gm pkt ORAL PRN (17:12)
--- NOTE | 2018-03-07 17:53 | Diagnostic Imaging Report ---
EXAM: XR Abdomen, 1 View CLINICAL HISTORY: NGT TECHNIQUE: Frontal supine view of the abdomen/pelvis. COMPARISON: No relevant prior studies available. FINDINGS: Gastrointestinal tract: Unremarkable. Bones/joints: Fixation hardware related to the pelvis. Hip replacements. Soft tissues: 2.6 cm linear structure overlying the left side of the abdomen. Location is indeterminate, could be internal or external to the patient. Differential can include foreign body. Correlate. Tubes, lines and devices: Other findings: Single view 02/15/18 at 1732. IMPRESSION: Enteric tube in the stomach.
[2018-03-07] MEDS: D5 1/2NS w/KCL 10meq 1,000 ML IV SCH (18:18)
[2018-03-07 20:00] VITALS: BP 90/48
[2018-03-07] MEDS: Tamsulosin 0.4mg cap ORAL SCH (20:39)
--- NOTE | 2018-03-07 21:00 | History and Physical Report ---
DATE OF ADMISSION: 03/06/2018 CHIEF COMPLAINT: The patient is an 87-year-old white female, who presents with a chief complaint of generalized weakness and hematuria. HISTORY OF PRESENT ILLNESS: The patient is a resident of [facility]. The patient herself is nonverbal. Much of the history and physical is taken from the patient's chart. The patient was noted to have hematuria yesterday, 03/06/2018. The patient was also found to have altered mental status with generalized weakness. The patient was transferred to [facility] emergency room for evaluation. The patient was found to have hematuria. The patient was also hypotensive. The patient was admitted for hypotension, generalized weakness, and hematuria to rule out sepsis. REVIEW OF SYSTEMS: Unable to assess secondary to the patient's mental status. PAST MEDICAL HISTORY: Significant for, 1. Dysphagia. 2. Hypertensive heart disease. 3. Hypercholesterolemia. 4. Multiple decubitus ulcers. PAST SURGICAL HISTORY: Unknown. CURRENT MEDICATIONS: 1. Vitamin C 500 mg one tablet p.o. twice daily. 2. Atenolol 25 mg p.o. daily. 3. Celebrex 200 mg p.o. twice daily. 4. Docusate sodium 100 mg p.o. twice daily. 5. Iron gluconate 324 mg p.o. twice daily. 6. Gabapentin 300 mg p.o. 3 times daily. 7. Lipitor 10 mg p.o. at bedtime. 8. Multivitamin one tablet p.o. daily. 9. Zinc sulfate 220 mg p.o. daily. 10. Pro-Stat 30 mL solution p.o. daily. 11. Tamsulosin 0.4 mg p.o. at bedtime. 12. Calcium carbonate 500 mg p.o. 4 times daily. 13. [place] 10/325 mg one tablet p.o. q.6 h. p.r.n. 14. Tylenol 650 mg p.o. q.6 hours p.r.n. ALLERGIES: No known drug allergies. SOCIAL HISTORY: The patient is a . The patient is a resident of [facility]. The patient denies tobacco or alcohol use. PHYSICAL EXAMINATION: VITAL SIGNS: Temperature 100.6, respirations 31, pulse 103 to 129, and blood pressure 102 to 139/75 to 90. GENERAL: The patient is a well-developed and well-nourished white female, in no apparent distress. HEENT: Eyes, pupils are equal and responsive to light and accommodation. Extraocular movements are intact. NECK: Supple without lymphadenopathy. CHEST: Decreased breath sounds at bilateral bases. Otherwise, clear to auscultation without wheezes or rales. CARDIOVASCULAR: Tachycardic. Regular rate and rhythm. S1, S2 are normal without murmurs, rubs, or gallops. ABDOMEN: Soft, nontender, and nondistended. Positive bowel sounds. No evidence of hepatosplenomegaly. Currently, no rebound or guarding noted. EXTREMITIES: Negative for clubbing, cyanosis, or edema. RECTAL/GENITAL: Deferred. NEUROLOGIC: Cranial nerves II through XII are grossly intact without focal deficits. LABORATORY STUDIES: WBC 15.7, hemoglobin 13.3, hematocrit 42.1, and platelets 246,000. Sodium 147, potassium 4.8, chloride 108, CO2 30, BUN 18, creatinine 0.8, and glucose 114. Lactic acid 3.6. Troponin elevated at 0.033. Urinalysis showed 4+ protein, 3+ ketones, 5+ blood, 1+ leukocyte esterase, rbc's 30 to 40, and wbc's too numerous to count. Chest x-ray revealed patchy opacities in the right upper lung consistent with pneumonia. ASSESSMENT: This is an 87-year-old white female. 1. Hematuria. 2. Generalized weakness. 3. Urinary tract infection. 4. Hematuria. 5. Pneumonia. 6. Generalized weakness. 7. Dysphagia. 8. Hypertension. 9. Hypercholesterolemia. 10. Multiple decubitus ulcers. TREATMENT: 1. Urinary tract infection. An Infectious Disease consultation has been obtained with Dr. Daniel. The patient has been started empirically on intravenous cefepime. We will follow recommendations of Infectious Disease. 2. Probable sepsis. The patient has been started empirically on vancomycin and cefepime. An Infectious Disease consultation has been obtained with Dr. Daniel. We will follow recommendations of Infectious Disease. Blood cultures and urine cultures are pending. 3. Hematuria probably secondary to urinary tract infection as above. 4. Hypertensive heart disease. Continue metoprolol as above. 5. Hypercholesteremia. Continue Lipitor as above. 6. Multiple decubitus ulcers. Shankar Betts M.D. DR: ANASTASIA JOB#: [id number] CC:
--- NOTE | 2018-03-07 23:48 | Consultation ---
History of Present Illness General Chief Complaint: General Complaint Referring physician: LANA OSBORNE Reason for Consultation: Dysphagia Present Illness HPI 87-year-old white female, who presents with a chief complaint of generalized weakness and hematuria. The patient herself is nonverbal. i am well familiar with the pt the pt is more confused than baseline with agitation Allergies: Coded Allergies: No Known Allergies (Unverified , 03/06/18) Medication History Scheduled Ascorbic Acid* (Vitamin C*), 500 MG ORAL TWICE A DAY, (Reported) Atenolol* (Tenormin*), 25 MG ORAL DAILY, (Reported) Atorvastatin Calcium* (Lipitor*), 10 MG ORAL BEDTIME, (Reported) Celecoxib* (Celebrex*), 200 MG ORAL TWICE A DAY, (Reported) Docusate Sodium* (Docusate Sodium*), 100 MG ORAL TWICE A DAY, (Reported) Ferrous Gluconate (Ferrous Gluconate), 324 MG PO BID, (Reported) Gabapentin* (Gabapentin*), 300 MG ORAL THREE TIMES A DAY, (Reported) Multivitamins* (Multivitamins*), 1 TAB ORAL DAILY, (Reported) Tamsulosin Hcl (Tamsulosin Hcl*), 0.4 MG ORAL BEDTIME, (Reported) Zinc Sulfate (Zinc Sulfate*), 220 MG ORAL DAILY, (Reported) [Prostat], 30 ML PO DAILY, (Reported) Scheduled PRN Acetaminophen (Acetaminophen), 650 MG PO Q4HR PRN for Fever/Headache/Mild Pain, (Reported) Calcium Carbonate (Calcium Carbonate), 500 MG PO Q6HR PRN for For Pain, ( Reported) Hydrocodone Bit/Acetaminophen 10-325* (Pella 10-325*), 1 TAB ORAL Q4H PRN for For Pain, (Reported) Hydrocodone Bit/Acetaminophen 5-325* (Pella 5-325*), 1 TAB ORAL Q4H PRN for For Pain, (Reported) Patient History Limited by: medical condition History Provided By: Medical Record, PMD Healthcare decision maker Resuscitation status Full Code Advanced Directive on File Past Medical/Surgical History Past Medical/Surgical History: (1) Atrial fibrillation with RVR (2) Hypernatremia (3) Pneumonia (4) Lactic acid acidosis (5) Pyelonephritis (6) Pyelonephritis (7) Sepsis (8) Pyelonephritis (9) Dehydration (10) Dysphasia (11) Electrolyte imbalance (12) Severe malnutrition (13) Encounter for PEG (percutaneous endoscopic gastrostomy) Review of Systems Psychiatric: Reports: anxiety, depressed feelings, emotional problems Physical Exam General Appearance: confused, agitated Neurologic: depressed affect Last 24 Hour Vital Signs Date Time Temp Pulse Resp B/P (MAP) Pulse Ox O2 Delivery O2 Flow Rate FiO2 03/07/18 20:08 99 Nasal Cannula 2.0 28 03/07/18 20:08 Nasal Cannula 2.0 28 03/07/18 20:00 Nasal Cannula 2.0 03/07/18 20:00 98.7 99 18 90/48 (62) 99 03/07/18 20:00 83 03/07/18 16:00 86 03/07/18 16:00 96.8 85 20 81/45 (57) 97 03/07/18 12:00 92 03/07/18 12:00 98.5 103 22 103/62 (76) 97 03/07/18 09:11 142 122/83 03/07/18 09:00 Nasal Cannula 2.0 03/07/18 08:00 134 03/07/18 08:00 98.5 57 20 115/69 (84) 97 03/07/18 07:55 116 20 100 Nasal Cannula 2.0 28 03/07/18 07:48 131 20 100 Nasal Cannula 2.0 28 03/07/18 04:00 03/07/18 04:00 66 03/07/18 03:25 116 24 99 Nasal Cannula 2.0 28 03/07/18 03:20 114 20 98 Nasal Cannula 2.0 28 03/07/18 00:00 122 03/07/18 00:00 99.1 118 20 115/83 (94) 98 Intake and Output 03/06/18 03/07/18 19:00 07:00 Intake Total 385 ml Output Total 200 ml Balance 185 ml Intake IV Total 385 ml Output Urine Total 200 ml # Voids 1 Laboratory Tests Test 03/07/18 06:00 White Blood Count 10.2 K/UL (4.8-10.8) Red Blood Count 4.01 M/UL (4.20-5.40) L Hemoglobin 12.0 G/DL (12.0-16.0) Hematocrit 37.1 % (37.0-47.0) Mean Corpuscular Volume 93 FL (80-99) Mean Corpuscular Hemoglobin 29.8 PG (27.0-31.0) Mean Corpuscular Hemoglobin Concent 32.2 G/DL (32.0-36.0) Red Cell Distribution Width 13.4 % (11.6-14.8) Platelet Count 164 K/UL (150-450) Mean Platelet Volume 5.5 FL (6.5-10.1) L Neutrophils (%) (Auto) 70.1 % (45.0-75.0) Lymphocytes (%) (Auto) 18.4 % (20.0-45.0) L Monocytes (%) (Auto) 10.4 % (1.0-10.0) H Eosinophils (%) (Auto) 0.4 % (0.0-3.0) Basophils (%) (Auto) 0.7 % (0.0-2.0) Sodium Level 149 MMOL/L (136-145) H Potassium Level 4.5 MMOL/L (3.5-5.1) Chloride Level 114 MMOL/L (98-107) H Carbon Dioxide Level 26 MMOL/L (21-32) Anion Gap 9 mmol/L (5-15) Blood Urea Nitrogen 15 mg/dL (7-18) Creatinine 0.7 MG/DL (0.55-1.30) Estimat Glomerular Filtration Rate mL/min (>60) Glucose Level 89 MG/DL (74-106) Calcium Level 8.9 MG/DL (8.5-10.1) Phosphorus Level 3.0 MG/DL (2.5-4.9) Albumin 1.8 G/DL (3.4-5.0) L Height (Feet): 5 Height (Inches): 3.00 Weight (Pounds): 100 Medications Current Medications Medications (Trade) Dose Ordered Sig/Cele Route PRN Reason Start Time Stop Time Status Last Admin Dose Admin Acetaminophen (Tylenol) 650 mg Q4H PRN ORAL fever (temp>100.5F) 03/07/18 17:11 04/05/18 17:10 Al Hydroxide/Mg Hydroxide (Mylanta II) 30 ml Q6H PRN ORAL dyspepsia 03/07/18 17:11 04/05/18 17:10 Albuterol/ Ipratropium (Albuterol/ Ipratropium) 3 ml Q4H PRN HHN Shortness of Breath 03/07/18 17:11 03/11/18 17:10 Atenolol (Tenormin) 25 mg DAILY ORAL 03/08/18 09:00 04/06/18 08:59 Cefepime HCl 2 gm/ Dextrose 110 ml @ 220 mls/hr DAILY IV 03/08/18 09:00 03/13/18 14:59 Dextrose/ Electrolytes 1,000 ml @ 75 mls/hr [id number] IV 03/07/18 17:11 04/06/18 17:10 03/07/18 18:18 Gabapentin (Neurontin) 300 mg THREE TIMES A DAY ORAL 03/07/18 18:00 04/05/18 17:59 03/07/18 18:33 Heparin Sodium (Porcine) (Heparin 5000 units/ml) 5,000 units EVERY 12 HOURS SUBQ 03/07/18 21:00 04/05/18 20:59 03/07/18 20:40 Nitroglycerin (Ntg) 0.4 mg Q5M PRN SL Prn Chest Pain 03/07/18 17:11 04/05/18 17:10 Ondansetron HCl (Zofran) 4 mg Q6H PRN IVP Nausea & Vomiting 03/07/18 17:11 04/05/18 17:10 Polyethylene Glycol (Miralax) 17 gm DAILYPRN PRN ORAL Constipation 03/07/18 17:12 04/06/18 17:11 Promethazine HCl/ Codeine (Phenergan with Codeine) 5 ml Q4H PRN ORAL For Cough 03/07/18 17:12 04/05/18 17:11 Tamsulosin HCl (Flomax) 0.4 mg BEDTIME ORAL 03/07/18 21:00 04/05/18 20:59 03/07/18 20:39 Temazepam (Restoril) 15 mg HSPRN PRN ORAL Insomnia 03/07/18 17:12 03/14/18 17:11 Vancomycin HCl (Vanco rx to dose) 1 ea DAILY PRN MISC Per rx protocol 03/08/18 09:00 04/05/18 13:29 Vancomycin HCl 500 mg/Dextrose 110 ml @ 110 mls/hr Q24H IVPB 03/08/18 16:00 03/12/18 15:59 Assessment/Plan Problem List: (1) encephalopathy due to metabolic factor Assessment/Plan Bj Bradford MD Mar 07, 2018 23:48
[2018-03-08] VITALS: BP 94/52
[2018-03-08] MEDS ORDERED: OLANZapine 2.5mg tab ORAL PRN
--- NOTE | 2018-03-08 02:52 | Pulmonology Progress Note ---
Assessment/Plan Assessment/Plan Pulmonary Consultation Note Patient seen 03/07/2018 17:25 HPI This patient is brought in by EMS. Per report, the patient has had failure to thrive and generalized weakness. They also note hematuria. The patient is nonverbal and unable to articulate any complaints. She has also stopped eating per the medical record and nursing notes. There is no other history of present illness available or documented. Allergies: No Known Allergies (Unverified , 03/06/18) Past Medical History: HTN, AFib, dementia, HL psych hx, other - contractures, DU, muscle wasting, previous G tube Social History: Denies: smoking, alcohol use, drug use All Other Systems: limited Physical Exam Vital Signs Noted General Appearance: no apparent distress, alert, GCS 15, non-toxic, other - frail, elderly, chronically ill, contracted, non-verbal, Chronically Ill Head: normocephalic, atraumatic Eyes: bilateral eye normal inspection, bilateral eye PERRL ENT: no angioedema Neck: other - flexed. contracted. Respiratory: chest non-tender, lungs clear, normal breath sounds, no respiratory distress, no retraction, no accessory muscle use, speaking full sentences Cardiovascular #1: no edema, tachycardia, systolic murmur, irregularly irregular Gastrointestinal: normal bowel sounds, non tender, soft, non-distended, no guarding, no rebound, other - colostomy bag in place. Rectal: deferred Musculoskeletal: back normal, gait/station normal, normal range of motion, non- tender Neurologic: alert, other - non-focal. Contracted, non-verbal Psychiatric: mood/affect normal Skin: no rash, warm/dry, well hydrated, other - Multiple DU Impression: Pyelonephritis Sepsis Pneumonia Hypernatremia Lactic acid acidosis HTN, AFib, Dementia, HL psych hx, other - contractures, DU, muscle wasting, previous G tube Plan IV Antibiotics O2 PRN PPX IVF PTAmeds Aspiration precautions Laboratory Tests Test 03/06/18 10:12 03/06/18 10:25 03/06/18 10:47 White Blood Count 15.7 K/UL (4.8-10.8) H Red Blood Count 4.60 M/UL (4.20-5.40) Hemoglobin 13.3 G/DL (12.0-16.0) Hematocrit 42.1 % (37.0-47.0) Mean Corpuscular Volume 91 FL (80-99) Mean Corpuscular Hemoglobin 28.9 PG (27.0-31.0) Mean Corpuscular Hemoglobin Concent 31.7 G/DL (32.0-36.0) L Red Cell Distribution Width 13.3 % (11.6-14.8) Platelet Count 246 K/UL (150-450) Mean Platelet Volume 5.4 FL (6.5-10.1) L Neutrophils (%) (Auto) 77.5 % (45.0-75.0) H Lymphocytes (%) (Auto) 13.9 % (20.0-45.0) L Monocytes (%) (Auto) 8.1 % (1.0-10.0) Eosinophils (%) (Auto) 0.1 % (0.0-3.0) Basophils (%) (Auto) 0.4 % (0.0-2.0) Prothrombin Time 12.4 SEC (9.30-11.50) H Prothrombin Time INR 1.2 (0.9-1.1) H PTT 29 SEC (23-33) Sodium Level 147 MMOL/L (136-145) H Potassium Level 4.8 MMOL/L (3.5-5.1) Chloride Level 108 MMOL/L (98-107) H Carbon Dioxide Level 30 MMOL/L (21-32) Anion Gap 9 mmol/L (5-15) Blood Urea Nitrogen 18 mg/dL (7-18) Creatinine 0.8 MG/DL (0.55-1.30) Estimate Glomerular Filtration Rate mL/min (>60) Glucose Level 114 MG/DL (74-106) H Lactic Acid Level 3.60 mmol/L (0.4-2.0) H Calcium Level 9.1 MG/DL (8.5-10.1) Phosphorus Level 3.2 MG/DL (2.5-4.9) Magnesium Level 1.9 MG/DL (1.8-2.4) Total Bilirubin 0.6 MG/DL (0.2-1.0) Aspartate Amino Transferase (AST) 27 U/L (15-37) Alanine Aminotransferase (ALT) 16 U/L (12-78) Alkaline Phosphatase 128 U/L (46-116) H Total Creatine Kinase 59 U/L (26-308) Creatine Kinase MB 1.6 NG/ML (0.0-3.6) Creatine Kinase MB Relative Index 2.7 Total Protein 6.7 G/DL (6.4-8.2) Albumin 2.1 G/DL (3.4-5.0) L Globulin 4.6 g/dL Albumin/Globulin Ratio 0.5 (1.0-2.7) L Troponin I 0.033 ng/mL (0.000-0.056) Urine Color Yellow Urine Appearance Cloudy Urine pH 6 (4.5-8.0) Urine Specific [place] 1.020 (1.005-1.035) Urine Protein 4+ (NEGATIVE) H Urine Glucose (UA) Negative (NEGATIVE) Urine Ketones 3+ (NEGATIVE) H Urine Blood 5+ (NEGATIVE) H Urine Nitrite Negative (NEGATIVE) Urine Bilirubin 1+ (NEGATIVE) H Urine Ictotest Negative (NEGATIVE) Urine Urobilinogen Normal MG/DL (0.0-1.0) Urine Leukocyte Esterase 3+ (NEGATIVE) H Urine RBC 30-40 /HPF (0 - 2) H Urine WBC Tntc /HPF (0 - 2) H Urine Squamous Epithelial Cells Few /LPF (NONE/OCC) Urine Bacteria Few /HPF (NONE) Microbiology Date/Time Source Procedure Growth Status 03/06/18 10:12 Nasal Nares Influenza Types A,B Antigen (NGA) - Final Complete EKG Diagnostic Results Rate: tachycardiac Rhythm: other - S.tachycardia ST Segments: no acute changes Rhythm Strip Diag. Results EP Interpretation: yes Rate: 130's Rhythm: no PVC's, no ectopy, other - S.tachycardia Chest X-Ray Diagnostic Results Chest X-Ray Diagnostic Results : Chest X-Ray Ordered: Yes # of Views/Limited/Complete: 1 View Indication: Other EP Interpretation: No Interpretation: other - Questionable opacity RUL Impression: Other - See above Electronically Signed by: Halima Chery DO Subjective ROS Limited/Unobtainable: Yes Allergies: Coded Allergies: No Known Allergies (Unverified , 03/06/18) Objective Last 24 Hour Vital Signs Date Time Temp Pulse Resp B/P (MAP) Pulse Ox O2 Delivery O2 Flow Rate FiO2 03/08/18 00:00 98.6 80 18 94/52 (66) 99 03/08/18 00:00 77 03/08/18 00:00 Nasal Cannula 2.0 03/07/18 20:08 99 Nasal Cannula 2.0 28 03/07/18 20:08 Nasal Cannula 2.0 28 03/07/18 20:00 Nasal Cannula 2.0 03/07/18 20:00 98.7 99 18 90/48 (62) 99 03/07/18 20:00 83 03/07/18 16:00 86 03/07/18 16:00 96.8 85 20 81/45 (57) 97 03/07/18 12:00 92 03/07/18 12:00 98.5 103 22 103/62 (76) 97 03/07/18 09:11 142 122/83 03/07/18 09:00 Nasal Cannula 2.0 03/07/18 08:00 134 03/07/18 08:00 98.5 57 20 115/69 (84) 97 03/07/18 07:55 116 20 100 Nasal Cannula 2.0 28 03/07/18 07:48 131 20 100 Nasal Cannula 2.0 28 03/07/18 04:00 03/07/18 04:00 66 03/07/18 03:25 116 24 99 Nasal Cannula 2.0 28 03/07/18 03:20 114 20 98 Nasal Cannula 2.0 28 Intake and Output 03/07/18 03/08/18 19:00 07:00 Intake Total 110 ml Output Total 450 ml Balance -340 ml Intake IV Total 110 ml Output Urine Total 450 ml Microbiology Date/Time Source Procedure Growth Status 03/06/18 10:12 Blood Blood Culture - Preliminary Resulted 03/06/18 09:57 Blood Blood Culture - Preliminary Resulted 03/06/18 15:07 Sputum Induced Gram Stain - Final Resulted 03/06/18 15:07 Sputum Induced Sputum Culture Pending Resulted 03/06/18 13:20 Nasal Nares MRSA Culture - Final Staphylococcus Aureus - Mrsa Complete 03/06/18 10:12 Nasal Nares Influenza Types A,B Antigen (NGA) - Final Complete 03/06/18 10:47 Urine,Clean Catch Urine Culture - Preliminary Gram Negative Bacillus 1 Resulted Laboratory Tests 03/07/18 06:00: White Blood Count 10.2, Red Blood Count 4.01L, Hemoglobin 12.0, Hematocrit 37.1 , Mean Corpuscular Volume 93, Mean Corpuscular Hemoglobin 29.8, Mean Corpuscular Hemoglobin Concent 32.2, Red Cell Distribution Width 13.4, Platelet Count 164, Mean Platelet Volume 5.5L, Neutrophils (%) (Auto) 70.1, Lymphocytes ( %) (Auto) 18.4L, Monocytes (%) (Auto) 10.4H, Eosinophils (%) (Auto) 0.4, Basophils (%) (Auto) 0.7, Sodium Level 149H, Potassium Level 4.5, Chloride Level 114H, Carbon Dioxide Level 26, Anion Gap 9, Blood Urea Nitrogen 15, Creatinine 0.7, Estimat Glomerular Filtration Rate , Glucose Level 89, Calcium Level 8.9, Phosphorus Level 3.0, Albumin 1.8L Current Medications Medications (Trade) Dose Ordered Sig/Cele Route PRN Reason Start Time Stop Time Status Last Admin Dose Admin Acetaminophen (Tylenol) 650 mg Q4H PRN ORAL fever (temp>100.5F) 03/07/18 17:11 04/05/18 17:10 Al Hydroxide/Mg Hydroxide (Mylanta II) 30 ml Q6H PRN ORAL dyspepsia 03/07/18 17:11 04/05/18 17:10 Albuterol/ Ipratropium (Albuterol/ Ipratropium) 3 ml Q4H PRN HHN Shortness of Breath 03/07/18 17:11 03/11/18 17:10 Atenolol (Tenormin) 25 mg DAILY ORAL 03/08/18 09:00 04/06/18 08:59 Cefepime HCl 2 gm/ Dextrose 110 ml @ 220 mls/hr DAILY IV 03/08/18 09:00 03/13/18 14:59 Dextrose/ Electrolytes 1,000 ml @ 75 mls/hr [id number] IV 03/07/18 17:11 04/06/18 17:10 03/07/18 18:18 Gabapentin (Neurontin) 300 mg THREE TIMES A DAY ORAL 03/07/18 18:00 04/05/18 17:59 03/07/18 18:33 Heparin Sodium (Porcine) (Heparin 5000 units/ml) 5,000 units EVERY 12 HOURS SUBQ 03/07/18 21:00 04/05/18 20:59 03/07/18 20:40 Nitroglycerin (Ntg) 0.4 mg Q5M PRN SL Prn Chest Pain 12/21/18 17:11 04/05/18 17:10 Olanzapine (ZyPREXA) 2.5 mg Q6H PRN ORAL agitation 03/08/18 00:00 04/07/18 00:00 Ondansetron HCl (Zofran) 4 mg Q6H PRN IVP Nausea & Vomiting 03/07/18 17:11 04/05/18 17:10 Polyethylene Glycol (Miralax) 17 gm DAILYPRN PRN ORAL Constipation 03/07/18 17:12 04/06/18 17:11 Promethazine HCl/ Codeine (Phenergan with Codeine) 5 ml Q4H PRN ORAL For Cough 03/07/18 17:12 04/05/18 17:11 Tamsulosin HCl (Flomax) 0.4 mg BEDTIME ORAL 03/07/18 21:00 04/05/18 20:59 03/07/18 20:39 Temazepam (Restoril) 15 mg HSPRN PRN ORAL Insomnia 03/07/18 17:12 03/14/18 17:11 Vancomycin HCl (Vanco rx to dose) 1 ea DAILY PRN MISC Per rx protocol 03/08/18 09:00 04/05/18 13:29 Vancomycin HCl 500 mg/Dextrose 110 ml @ 110 mls/hr Q24H IVPB 03/08/18 16:00 03/12/18 15:59 Pacheco Baez MD Mar 08, 2018 02:52
[2018-03-08 04:00] VITALS: BP 100/48
[2018-03-08 05:54] LABS: BASOPHILS % (AUTO) 0.7 % (0.0-2.0); EOSINOPHILS % (AUTO) 0.8 % (0.0-3.0); HEMATOCRIT 36.1 % (37.0-47.0); HEMOGLOBIN 11.7 G/DL (12.0-16.0); LYMPHOCYTES % (AUTO) 15.4 % (20.0-45.0); MEAN CORPUSCULAR VOLUME 92 FL (80-99); MONOCYTES % (AUTO) 10.1 % (1.0-10.0); PLATELET COUNT 162 K/UL (150-450); RED BLOOD COUNT 3.93 M/UL (4.20-5.40); RED CELL DISTRIBUTION WIDTH 13.3 % (11.6-14.8); WHITE BLOOD COUNT 12.3 K/UL (4.8-10.8)
[2018-03-08 06:04] LABS: ANION GAP 8 mmol/L (5-15); BLOOD UREA NITROGEN 14 mg/dL (7-18); CALCIUM 8.3 MG/DL (8.5-10.1); CARBON DIOXIDE 27 MMOL/L (21-32); CHLORIDE 112 MMOL/L (98-107); CREATININE 0.6 MG/DL (0.55-1.30); POTASSIUM 3.2 MMOL/L (3.5-5.1); SODIUM 147 MMOL/L (136-145)
[2018-03-08] MEDS: D5 1/2NS w/KCL 10meq 1,000 ML IV SCH ×2 (06:31→14:21)
[2018-03-08 08:00] VITALS: BP 116/58
[2018-03-08] MEDS: Cefepime HCl 2 GM in D5W 110 ML IV SCH (09:00)
--- NOTE | 2018-03-08 09:30 | General Progress Note ---
Assessment/Plan Problem List: (1) Severe malnutrition ICD Codes: E43 - Unspecified severe protein-calorie malnutrition SNOMED: 18666514 (2) Encounter for PEG (percutaneous endoscopic gastrostomy) ICD Codes: Z43.1 - Encounter for attention to gastrostomy SNOMED: 098430625, 541657172 (3) Dehydration ICD Codes: E86.0 - Dehydration SNOMED: 30714692 (4) Dysphasia ICD Codes: R47.02 - Dysphasia SNOMED: 85320258 (5) Atrial fibrillation with RVR ICD Codes: I48.91 - Unspecified atrial fibrillation SNOMED: 754092670063595 Assessment/Plan NGTF plan possible PEG on Saturday Subjective ROS Limited/Unobtainable: No Allergies: Coded Allergies: No Known Allergies (Unverified , 03/06/18) Objective Last 24 Hour Vital Signs Date Time Temp Pulse Resp B/P (MAP) Pulse Ox O2 Delivery O2 Flow Rate FiO2 03/08/18 08:00 Nasal Cannula 2.0 03/08/18 08:00 97.8 88 19 116/58 (77) 96 03/08/18 07:08 Nasal Cannula 2.0 28 03/08/18 07:08 99 Nasal Cannula 2.0 28 03/08/18 04:00 98.1 98 24 100/48 (65) 99 03/08/18 04:00 90 03/08/18 04:00 Nasal Cannula 2.0 03/08/18 00:00 98.6 80 18 94/52 (66) 99 03/08/18 00:00 77 03/08/18 00:00 Nasal Cannula 2.0 03/07/18 20:08 99 Nasal Cannula 2.0 28 03/07/18 20:08 Nasal Cannula 2.0 28 03/07/18 20:00 Nasal Cannula 2.0 03/07/18 20:00 98.7 99 18 90/48 (62) 99 03/07/18 20:00 83 03/07/18 16:00 86 03/07/18 16:00 96.8 85 20 81/45 (57) 97 03/07/18 12:00 92 03/07/18 12:00 98.5 103 22 103/62 (76) 97 Intake and Output 03/07/18 03/08/18 18:59 06:59 Intake Total 110 ml 750 ml Output Total 450 ml 300 ml Balance -340 ml 450 ml Intake IV Total 110 ml 750 ml Output Urine Total 450 ml 300 ml Laboratory Tests 03/08/18 04:06: White Blood Count 12.3H, Red Blood Count 3.93L, Hemoglobin 11.7L, Hematocrit 36.1L, Mean Corpuscular Volume 92, Mean Corpuscular Hemoglobin 29.9, Mean Corpuscular Hemoglobin Concent 32.5, Red Cell Distribution Width 13.3, Platelet Count 162, Mean Platelet Volume 5.6L, Neutrophils (%) (Auto) 73.0, Lymphocytes ( %) (Auto) 15.4L, Monocytes (%) (Auto) 10.1H, Eosinophils (%) (Auto) 0.8, Basophils (%) (Auto) 0.7, Sodium Level 147H, Potassium Level 3.2L, Chloride Level 112H, Carbon Dioxide Level 27, Anion Gap 8, Blood Urea Nitrogen 14, Creatinine 0.6, Estimat Glomerular Filtration Rate , Glucose Level 105, Calcium Level 8.3L Height (Feet): 5 Height (Inches): 3.00 Weight (Pounds): 100 General Appearance: lethargic EENT: normal ENT inspection Neck: supple Cardiovascular: normal rate Respiratory/Chest: decreased breath sounds Abdomen: normal bowel sounds, non tender, soft Extremities: non-tender Ernesto Velez MD Mar 08, 2018 09:30
[2018-03-08] MEDS: Atenolol 25mg tab ORAL SCH (10:00)
--- NOTE | 2018-03-08 10:02 | Diagnostic Imaging Report ---
EXAM: XR Chest, 1 View CLINICAL HISTORY: COUGH TECHNIQUE: Frontal view of the chest. COMPARISON: Chest x-ray dated 03/06/18 FINDINGS: Lungs: Subtle reticular interstitial opacity at the periphery of the right upper lung again identified, not significantly changed. Pleural space: Unremarkable. The costophrenic angles are sharp. No visible pneumothorax. Heart: Unremarkable. No cardiomegaly. Mediastinum: Unremarkable. Bones/joints: Unremarkable. Vasculature: Atherosclerotic calcifications are noted within the aortic arch. Tubes, lines and devices: NG tube extends below the diaphragm and its tip is not visualized. EKG leads overlie the thorax. IMPRESSION: Subtle reticular interstitial opacity at the periphery of the right upper lung again identified, not significantly changed.
[2018-03-08] MEDS: Heparin 5000 units/ml inj SUBQ SCH ×2 (10:07→21:54)
--- NOTE | 2018-03-08 10:31 | Infectious Diseases Prog Note ---
Assessment/Plan Assessment/Plan Assessment: Sepsis 2ry to UTI c/w bacteremia and prob early PNA -u/a wbc tntc, nit neg, luek +3; ucx >100k PsA (R cipro/levo, otherwise S), gamma strep -03/06 Bcx 4/4 GNRs, 1/4 GPC clusters; 03/07 p -CXR: Subtle patchy opacities in the right upper lung raising question for developing pneumonia. Clinical correlation/follow-up recommended. -influenza sc neg Low grade fever, improving Leukocytosis, recurrent mild FTT HTN Afib dysphagia HLD Dementia contractures Plan: -Continue empiric IV Vancomycin and Cefepime #3 pending cultures -low threshold to switch Cefepime to Meropenem if HD decompensation -03/06 SP Meropenem x1 -f/u sp cx, legionella ag urine, Bcx x2 -f/u cx -Monitor CBC/CMP, temperatures -aspiration precautions Subjective Allergies: Coded Allergies: No Known Allergies (Unverified , 03/06/18) Subjective afebrile in >36hr leukocytosis mild, recurrent bacteremic GNRs Objective Vital Signs Last 24 Hour Vital Signs Date Time Temp Pulse Resp B/P (MAP) Pulse Ox O2 Delivery O2 Flow Rate FiO2 03/08/18 10:00 88 116/58 03/08/18 08:00 Nasal Cannula 2.0 03/08/18 08:00 97.8 88 19 116/58 (77) 96 03/08/18 08:00 99 03/08/18 07:08 Nasal Cannula 2.0 28 03/08/18 07:08 99 Nasal Cannula 2.0 28 03/08/18 04:00 98.1 98 24 100/48 (65) 99 03/08/18 04:00 90 03/08/18 04:00 Nasal Cannula 2.0 03/08/18 00:00 98.6 80 18 94/52 (66) 99 03/08/18 00:00 77 03/08/18 00:00 Nasal Cannula 2.0 03/07/18 20:08 99 Nasal Cannula 2.0 28 03/07/18 20:08 Nasal Cannula 2.0 28 03/07/18 20:00 Nasal Cannula 2.0 03/07/18 20:00 98.7 99 18 90/48 (62) 99 03/07/18 20:00 83 03/07/18 16:00 86 03/07/18 16:00 96.8 85 20 81/45 (57) 97 03/07/18 12:00 92 03/07/18 12:00 98.5 103 22 103/62 (76) 97 Height (Feet): 5 Height (Inches): 3.00 Weight (Pounds): 100 Objective General Appearance: no apparent distress, alert, GCS 15, non-toxic, other - frail, elderly, chronically ill, contracted, non-verbal, Chronically Ill HEENT: normocephalic, atraumatic, bilateral eye normal inspection, bilateral eye PERRL Respiratory: chest non-tender, lungs clear, normal breath sounds, no respiratory distress, no retraction, no accessory muscle use, speaking full sentences Cardiovascular : no edema, tachycardia, systolic murmur, irregularly irregular Gastrointestinal: normal bowel sounds, non tender, soft, non-distended, no guarding, no rebound, other - colostomy bag in place. Musculoskeletal: back normal, gait/station normal, normal range of motion, non- tender Neurologic: alert, other - non-focal. Contracted, non-verbal Skin: no rash, warm/dry, well hydrated, other - Multiple DU Microbiology Date/Time Source Procedure Growth Status 03/06/18 10:12 Blood Blood Culture - Preliminary Gram Negative Phillip Resulted 03/06/18 09:57 Blood Blood Culture - Preliminary Gram Negative Phillip Gram Positive Cocci Resulted 03/06/18 15:07 Sputum Induced Gram Stain - Final Resulted 03/06/18 15:07 Sputum Culture - Preliminary Staphylococcus Aureus Leda Albicans Resulted 03/06/18 13:20 Nasal Nares MRSA Culture - Final Staphylococcus Aureus - Mrsa Complete 03/06/18 10:12 Nasal Nares Influenza Types A,B Antigen (NGA) - Final Complete 03/06/18 10:47 Urine,Clean Catch Urine Culture - Preliminary Pseudomonas Aeruginosa Strep Species, Gamma-Hemolytic Yeast Species Resulted 03/06/18 13:20 Rectum - Final NO CARBAPENEM-RESISTANT ENTEROBACTERI... Complete Laboratory Tests Test 03/08/18 04:06 White Blood Count 12.3 K/UL (4.8-10.8) H Red Blood Count 3.93 M/UL (4.20-5.40) L Hemoglobin 11.7 G/DL (12.0-16.0) L Hematocrit 36.1 % (37.0-47.0) L Mean Corpuscular Volume 92 FL (80-99) Mean Corpuscular Hemoglobin 29.9 PG (27.0-31.0) Mean Corpuscular Hemoglobin Concent 32.5 G/DL (32.0-36.0) Red Cell Distribution Width 13.3 % (11.6-14.8) Platelet Count 162 K/UL (150-450) Mean Platelet Volume 5.6 FL (6.5-10.1) L Neutrophils (%) (Auto) 73.0 % (45.0-75.0) Lymphocytes (%) (Auto) 15.4 % (20.0-45.0) L Monocytes (%) (Auto) 10.1 % (1.0-10.0) H Eosinophils (%) (Auto) 0.8 % (0.0-3.0) Basophils (%) (Auto) 0.7 % (0.0-2.0) Sodium Level 147 MMOL/L (136-145) H Potassium Level 3.2 MMOL/L (3.5-5.1) L Chloride Level 112 MMOL/L (98-107) H Carbon Dioxide Level 27 MMOL/L (21-32) Anion Gap 8 mmol/L (5-15) Blood Urea Nitrogen 14 mg/dL (7-18) Creatinine 0.6 MG/DL (0.55-1.30) Estimat Glomerular Filtration Rate mL/min (>60) Glucose Level 105 MG/DL (74-106) Calcium Level 8.3 MG/DL (8.5-10.1) L Current Medications Medications (Trade) Dose Ordered Sig/Cele Route PRN Reason Start Time Stop Time Status Last Admin Dose Admin Acetaminophen (Tylenol) 650 mg Q4H PRN ORAL fever (temp>100.5F) 03/07/18 17:11 04/05/18 17:10 Al Hydroxide/Mg Hydroxide (Mylanta II) 30 ml Q6H PRN ORAL dyspepsia 03/07/18 17:11 04/05/18 17:10 Albuterol/ Ipratropium (Albuterol/ Ipratropium) 3 ml Q4H PRN HHN Shortness of Breath 03/07/18 17:11 03/11/18 17:10 Atenolol (Tenormin) 25 mg DAILY ORAL 03/08/18 09:00 04/06/18 08:59 03/08/18 10:00 Cefepime HCl 2 gm/ Dextrose 110 ml @ 220 mls/hr DAILY IV 03/08/18 09:00 03/13/18 14:59 03/08/18 09:00 Dextrose/ Electrolytes 1,000 ml @ 75 mls/hr [id number] IV 03/07/18 17:11 04/06/18 17:10 03/07/18 18:18 Gabapentin (Neurontin) 300 mg THREE TIMES A DAY ORAL 03/07/18 18:00 04/05/18 17:59 03/08/18 09:59 Heparin Sodium (Porcine) (Heparin 5000 units/ml) 5,000 units EVERY 12 HOURS SUBQ 03/07/18 21:00 04/05/18 20:59 03/08/18 10:07 Nitroglycerin (Ntg) 0.4 mg Q5M PRN SL Prn Chest Pain 03/07/18 17:11 04/05/18 17:10 Olanzapine (ZyPREXA) 2.5 mg Q6H PRN ORAL agitation 03/08/18 00:00 04/07/18 00:00 Ondansetron HCl (Zofran) 4 mg Q6H PRN IVP Nausea & Vomiting 03/07/18 17:11 04/05/18 17:10 Polyethylene Glycol (Miralax) 17 gm DAILYPRN PRN ORAL Constipation 03/07/18 17:12 04/06/18 17:11 Promethazine HCl/ Codeine (Phenergan with Codeine) 5 ml Q4H PRN ORAL For Cough 03/07/18 17:12 04/05/18 17:11 Tamsulosin HCl (Flomax) 0.4 mg BEDTIME ORAL 03/07/18 21:00 04/05/18 20:59 03/07/18 20:39 Temazepam (Restoril) 15 mg HSPRN PRN ORAL Insomnia 03/07/18 17:12 03/14/18 17:11 Vancomycin HCl (Vanco rx to dose) 1 ea DAILY PRN MISC Per rx protocol 03/08/18 09:00 04/05/18 13:29 Vancomycin HCl 500 mg/Dextrose 110 ml @ 110 mls/hr Q24H IVPB 12/22/18 16:00 03/12/18 15:59 Sussy Daniel M.D. Mar 08, 2018 10:31
[2018-03-08 12:00] VITALS: BP 132/69
[2018-03-08 16:00] VITALS: BP 121/74
[2018-03-08] MEDS ORDERED: Vancomycin 500 MG in D5W 110 ML IVPB SCH (16:00)
[2018-03-08] MEDS ORDERED: NS 275ml ONE (16:21)
[2018-03-08] MEDS ORDERED: Tubing IV Secondary IV ONE (16:21)
--- NOTE | 2018-03-08 17:49 | Internal Med Progress Note ---
Subjective Date of Service: Mar 08, 2018 Physician Name Betts,Shankar Attending Physician Davian Scott MD Current Medications Medications (Trade) Dose Ordered Sig/Cele Route PRN Reason Start Time Stop Time Status Last Admin Dose Admin Acetaminophen (Tylenol) 650 mg Q4H PRN ORAL fever (temp>100.5F) 03/07/18 17:11 04/05/18 17:10 Al Hydroxide/Mg Hydroxide (Mylanta II) 30 ml Q6H PRN ORAL dyspepsia 03/07/18 17:11 04/05/18 17:10 Albuterol/ Ipratropium (Albuterol/ Ipratropium) 3 ml Q4H PRN HHN Shortness of Breath 03/07/18 17:11 03/11/18 17:10 Atenolol (Tenormin) 25 mg DAILY ORAL 03/08/18 09:00 04/06/18 08:59 03/08/18 10:00 Cefepime HCl 2 gm/ Dextrose 110 ml @ 220 mls/hr DAILY IV 03/08/18 09:00 03/13/18 14:59 03/08/18 09:00 Dextrose/ Electrolytes 1,000 ml @ 75 mls/hr [id number] IV 03/07/18 17:11 04/06/18 17:10 03/08/18 14:21 Gabapentin (Neurontin) 300 mg THREE TIMES A DAY ORAL 03/07/18 18:00 04/05/18 17:59 03/08/18 17:40 Heparin Sodium (Porcine) (Heparin 5000 units/ml) 5,000 units EVERY 12 HOURS SUBQ 03/07/18 21:00 04/05/18 20:59 03/08/18 10:07 Nitroglycerin (Ntg) 0.4 mg Q5M PRN SL Prn Chest Pain 03/07/18 17:11 04/05/18 17:10 Olanzapine (ZyPREXA) 2.5 mg Q6H PRN ORAL agitation 03/08/18 00:00 04/07/18 00:00 Ondansetron HCl (Zofran) 4 mg Q6H PRN IVP Nausea & Vomiting 03/07/18 17:11 04/05/18 17:10 Polyethylene Glycol (Miralax) 17 gm DAILYPRN PRN ORAL Constipation 03/07/18 17:12 04/06/18 17:11 Promethazine HCl/ Codeine (Phenergan with Codeine) 5 ml Q4H PRN ORAL For Cough 03/07/18 17:12 04/05/18 17:11 Tamsulosin HCl (Flomax) 0.4 mg BEDTIME ORAL 03/07/18 21:00 04/05/18 20:59 03/07/18 20:39 Temazepam (Restoril) 15 mg HSPRN PRN ORAL Insomnia 03/07/18 17:12 03/14/18 17:11 Vancomycin HCl (Vanco rx to dose) 1 ea DAILY PRN MISC Per rx protocol 03/08/18 09:00 04/05/18 13:29 Vancomycin HCl 500 mg/Dextrose 110 ml @ 110 mls/hr Q24H IVPB 03/08/18 16:00 03/12/18 15:59 03/08/18 16:12 Allergies: Coded Allergies: No Known Allergies (Unverified , 03/06/18) ROS Limited/Unobtainable: Yes Subjective 87 YO F admitted with hematuria and gen weakness. Now pyelonephritis and sepsis. Cover for Int Med-Dr Scott Objective Last Vital Signs Date Time Temp Pulse Resp B/P (MAP) Pulse Ox O2 Delivery O2 Flow Rate FiO2 03/08/18 16:00 Nasal Cannula 2.0 03/08/18 16:00 104 03/08/18 12:00 98.3 19 132/69 (90) 95 03/08/18 07:08 28 Laboratory Tests Test 03/08/18 04:06 White Blood Count 12.3 K/UL (4.8-10.8) H Red Blood Count 3.93 M/UL (4.20-5.40) L Hemoglobin 11.7 G/DL (12.0-16.0) L Hematocrit 36.1 % (37.0-47.0) L Mean Corpuscular Volume 92 FL (80-99) Mean Corpuscular Hemoglobin 29.9 PG (27.0-31.0) Mean Corpuscular Hemoglobin Concent 32.5 G/DL (32.0-36.0) Red Cell Distribution Width 13.3 % (11.6-14.8) Platelet Count 162 K/UL (150-450) Mean Platelet Volume 5.6 FL (6.5-10.1) L Neutrophils (%) (Auto) 73.0 % (45.0-75.0) Lymphocytes (%) (Auto) 15.4 % (20.0-45.0) L Monocytes (%) (Auto) 10.1 % (1.0-10.0) H Eosinophils (%) (Auto) 0.8 % (0.0-3.0) Basophils (%) (Auto) 0.7 % (0.0-2.0) Sodium Level 147 MMOL/L (136-145) H Potassium Level 3.2 MMOL/L (3.5-5.1) L Chloride Level 112 MMOL/L (98-107) H Carbon Dioxide Level 27 MMOL/L (21-32) Anion Gap 8 mmol/L (5-15) Blood Urea Nitrogen 14 mg/dL (7-18) Creatinine 0.6 MG/DL (0.55-1.30) Estimat Glomerular Filtration Rate mL/min (>60) Glucose Level 105 MG/DL (74-106) Calcium Level 8.3 MG/DL (8.5-10.1) L Microbiology Date/Time Source Procedure Growth Status 03/06/18 10:12 Blood Blood Culture - Preliminary Gram Negative Phillip Resulted 03/06/18 09:57 Blood Blood Culture - Preliminary Gram Negative Phillip Gram Positive Cocci Resulted 03/06/18 15:07 Sputum Induced Gram Stain - Final Resulted 03/06/18 15:07 Sputum Culture - Preliminary Staphylococcus Aureus Leda Albicans Resulted 03/06/18 13:20 Nasal Nares MRSA Culture - Final Staphylococcus Aureus - Mrsa Complete 03/06/18 10:12 Nasal Nares Influenza Types A,B Antigen (NGA) - Final Complete 03/06/18 10:47 Urine,Clean Catch Urine Culture - Preliminary Pseudomonas Aeruginosa Strep Species, Gamma-Hemolytic Yeast Species Resulted 03/06/18 13:20 Rectum - Final NO CARBAPENEM-RESISTANT ENTEROBACTERI... Complete Intake and Output 03/07/18 03/08/18 19:00 07:00 Intake Total 185 ml 750 ml Output Total 450 ml 300 ml Balance -265 ml 450 ml Intake IV Total 185 ml 750 ml Output Urine Total 450 ml 300 ml Objective PHYSICAL EXAMINATION: GENERAL: The patient is a well-developed and well-nourished white female, in no apparent distress. HEENT: Eyes, pupils are equal and responsive to light and accommodation. Extraocular movements are intact. NECK: Supple without lymphadenopathy. CHEST: Decreased breath sounds at bilateral bases. Otherwise, clear to auscultation without wheezes or rales. CARDIOVASCULAR: Tachycardic. Regular rate and rhythm. S1, S2 are normal without murmurs, rubs, or gallops. ABDOMEN: Soft, nontender, and nondistended. Positive bowel sounds. No evidence of hepatosplenomegaly. Currently, no rebound or guarding noted. EXTREMITIES: Negative for clubbing, cyanosis, or edema. RECTAL/GENITAL: Deferred. NEUROLOGIC: Cranial nerves II through XII are grossly intact without focal deficits. Assessment/Plan Problem List: (1) Dysphagia (2) Pyelonephritis Assessment & Plan: Pseudamonas and strep. See ID note-Continue cefepime and vanco (3) Sepsis (4) HTN (hypertension) Assessment & Plan: Currently hypotensive (5) Hypercholesteremia (6) Sacral decubitus ulcer, stage IV Assessment & Plan: See surgery note-dr Ramsay Status: progressing Shankar Betts MD Mar 08, 2018 17:49
[2018-03-08 20:00] VITALS: BP 127/64
[2018-03-08] MEDS: Tamsulosin 0.4mg cap ORAL SCH (21:53)
--- NOTE | 2018-03-08 22:06 | General Progress Note ---
Assessment/Plan Problem List: (1) encephalopathy due to metabolic factor Assessment/Plan zyprexa prn Subjective Neurologic/Psychiatric: Reports: anxiety, depressed, emotional problems Allergies: Coded Allergies: No Known Allergies (Unverified , 03/06/18) Objective Last 24 Hour Vital Signs Date Time Temp Pulse Resp B/P (MAP) Pulse Ox O2 Delivery O2 Flow Rate FiO2 03/08/18 18:30 100 Nasal Cannula 2.0 28 03/08/18 18:30 Nasal Cannula 2.0 28 03/08/18 16:00 Nasal Cannula 2.0 03/08/18 16:00 104 03/08/18 16:00 98.4 98 18 121/74 (90) 94 03/08/18 12:00 107 03/08/18 12:00 98.3 63 19 132/69 (90) 95 03/08/18 12:00 Nasal Cannula 2.0 03/08/18 10:00 88 116/58 03/08/18 08:00 Nasal Cannula 2.0 03/08/18 08:00 97.8 88 19 116/58 (77) 96 03/08/18 08:00 99 03/08/18 07:08 Nasal Cannula 2.0 28 03/08/18 07:08 99 Nasal Cannula 2.0 28 03/08/18 04:00 98.1 98 24 100/48 (65) 99 03/08/18 04:00 90 03/08/18 04:00 Nasal Cannula 2.0 03/08/18 00:00 98.6 80 18 94/52 (66) 99 03/08/18 00:00 77 03/08/18 00:00 Nasal Cannula 2.0 Intake and Output 03/07/18 03/08/18 19:00 07:00 Intake Total 185 ml 750 ml Output Total 450 ml 300 ml Balance -265 ml 450 ml Intake IV Total 185 ml 750 ml Output Urine Total 450 ml 300 ml Laboratory Tests 03/08/18 04:06: White Blood Count 12.3H, Red Blood Count 3.93L, Hemoglobin 11.7L, Hematocrit 36.1L, Mean Corpuscular Volume 92, Mean Corpuscular Hemoglobin 29.9, Mean Corpuscular Hemoglobin Concent 32.5, Red Cell Distribution Width 13.3, Platelet Count 162, Mean Platelet Volume 5.6L, Neutrophils (%) (Auto) 73.0, Lymphocytes ( %) (Auto) 15.4L, Monocytes (%) (Auto) 10.1H, Eosinophils (%) (Auto) 0.8, Basophils (%) (Auto) 0.7, Sodium Level 147H, Potassium Level 3.2L, Chloride Level 112H, Carbon Dioxide Level 27, Anion Gap 8, Blood Urea Nitrogen 14, Creatinine 0.6, Estimat Glomerular Filtration Rate , Glucose Level 105, Calcium Level 8.3L Height (Feet): 5 Height (Inches): 3.00 Weight (Pounds): 100 General Appearance: no apparent distress, alert Bj Martinez MD Mar 08, 2018 22:06
[2018-03-09] VITALS: BP 126/59
[2018-03-09] MEDS: D5 1/2NS w/KCL 10meq 1,000 ML IV SCH ×3 (02:55→23:00)
[2018-03-09 04:00] VITALS: BP 111/52
[2018-03-09 04:28] LABS: BASOPHILS % (AUTO) 0.7 % (0.0-2.0); EOSINOPHILS % (AUTO) 1.1 % (0.0-3.0); HEMATOCRIT 29.7 % (37.0-47.0); HEMOGLOBIN 9.6 G/DL (12.0-16.0); LYMPHOCYTES % (AUTO) 19.9 % (20.0-45.0); MEAN CORPUSCULAR VOLUME 91 FL (80-99); MONOCYTES % (AUTO) 10.5 % (1.0-10.0); NEUTROPHILS % (AUTO) 67.8 % (45.0-75.0); PLATELET COUNT 132 K/UL (150-450); RED BLOOD COUNT 3.25 M/UL (4.20-5.40); RED CELL DISTRIBUTION WIDTH 13.2 % (11.6-14.8); WHITE BLOOD COUNT 7.8 K/UL (4.8-10.8)
[2018-03-09 04:42] LABS: ANION GAP 3 mmol/L (5-15); BLOOD UREA NITROGEN 13 mg/dL (7-18); CALCIUM 8.2 MG/DL (8.5-10.1); CARBON DIOXIDE 29 MMOL/L (21-32); CHLORIDE 112 MMOL/L (98-107); CREATININE 0.5 MG/DL (0.55-1.30); POTASSIUM 3.3 MMOL/L (3.5-5.1); SODIUM 144 MMOL/L (136-145)
[2018-03-09 08:00] VITALS: BP 117/71
[2018-03-09] MEDS: Atenolol 25mg tab ORAL SCH (09:01)
[2018-03-09] MEDS: Cefepime HCl 2 GM in D5W 110 ML IV SCH (09:01)
[2018-03-09] MEDS: Heparin 5000 units/ml inj SUBQ SCH ×2 (09:04→21:00)
--- NOTE | 2018-03-09 09:07 | Pulmonology Progress Note ---
Assessment/Plan Assessment/Plan Pulmonary Consultation Note Patient seen 03/08/2018 16:20 HPI This patient is brought in by EMS. Per report, the patient has had failure to thrive and generalized weakness. They also note hematuria. The patient is nonverbal and unable to articulate any complaints. She has also stopped eating per the medical record and nursing notes. There is no other history of present illness available or documented. Allergies: No Known Allergies Past Medical History: HTN, AFib, dementia, HL psych hx, other - contractures, DU, muscle wasting, previous G tube Social History: Denies: smoking, alcohol use, drug use All Other Systems: limited Physical Exam Vital Signs Noted General Appearance: no apparent distress, alert, GCS 15, non-toxic, other - frail, elderly, chronically ill, contracted, non-verbal, Chronically Ill Head: normocephalic, atraumatic Eyes: bilateral eye normal inspection, bilateral eye PERRL ENT: no angioedema Neck: other - flexed. contracted. Respiratory: chest non-tender, lungs clear, normal breath sounds, no respiratory distress, no retraction, no accessory muscle use, speaking full sentences Cardiovascular #1: no edema, tachycardia, systolic murmur, irregularly irregular Gastrointestinal: normal bowel sounds, non tender, soft, non-distended, no guarding, no rebound, other - colostomy bag in place. Rectal: deferred Musculoskeletal: back normal, gait/station normal, normal range of motion, non- tender Neurologic: alert, other - non-focal. Contracted, non-verbal Psychiatric: mood/affect normal Skin: no rash, warm/dry, well hydrated, other - Multiple DU Impression: Pyelonephritis Sepsis Pneumonia Hypernatremia Lactic acid acidosis HTN, AFib, Dementia, HL psych hx, other - contractures, DU, muscle wasting, previous G tube Plan IV Antibiotics O2 PRN PPX IVF PTAmeds Aspiration precautions Laboratory Tests Test 03/06/18 10:12 03/06/18 10:25 03/06/18 10:47 White Blood Count 15.7 K/UL (4.8-10.8) H Red Blood Count 4.60 M/UL (4.20-5.40) Hemoglobin 13.3 G/DL (12.0-16.0) Hematocrit 42.1 % (37.0-47.0) Mean Corpuscular Volume 91 FL (80-99) Mean Corpuscular Hemoglobin 28.9 PG (27.0-31.0) Mean Corpuscular Hemoglobin Concent 31.7 G/DL (32.0-36.0) L Red Cell Distribution Width 13.3 % (11.6-14.8) Platelet Count 246 K/UL (150-450) Mean Platelet Volume 5.4 FL (6.5-10.1) L Neutrophils (%) (Auto) 77.5 % (45.0-75.0) H Lymphocytes (%) (Auto) 13.9 % (20.0-45.0) L Monocytes (%) (Auto) 8.1 % (1.0-10.0) Eosinophils (%) (Auto) 0.1 % (0.0-3.0) Basophils (%) (Auto) 0.4 % (0.0-2.0) Prothrombin Time 12.4 SEC (9.30-11.50) H Prothrombin Time INR 1.2 (0.9-1.1) H PTT 29 SEC (23-33) Sodium Level 147 MMOL/L (136-145) H Potassium Level 4.8 MMOL/L (3.5-5.1) Chloride Level 108 MMOL/L (98-107) H Carbon Dioxide Level 30 MMOL/L (21-32) Anion Gap 9 mmol/L (5-15) Blood Urea Nitrogen 18 mg/dL (7-18) Creatinine 0.8 MG/DL (0.55-1.30) Estimate Glomerular Filtration Rate mL/min (>60) Glucose Level 114 MG/DL (74-106) H Lactic Acid Level 3.60 mmol/L (0.4-2.0) H Calcium Level 9.1 MG/DL (8.5-10.1) Phosphorus Level 3.2 MG/DL (2.5-4.9) Magnesium Level 1.9 MG/DL (1.8-2.4) Total Bilirubin 0.6 MG/DL (0.2-1.0) Aspartate Amino Transferase (AST) 27 U/L (15-37) Alanine Aminotransferase (ALT) 16 U/L (12-78) Alkaline Phosphatase 128 U/L (46-116) H Total Creatine Kinase 59 U/L (26-308) Creatine Kinase MB 1.6 NG/ML (0.0-3.6) Creatine Kinase MB Relative Index 2.7 Total Protein 6.7 G/DL (6.4-8.2) Albumin 2.1 G/DL (3.4-5.0) L Globulin 4.6 g/dL Albumin/Globulin Ratio 0.5 (1.0-2.7) L Troponin I 0.033 ng/mL (0.000-0.056) Urine Color Yellow Urine Appearance Cloudy Urine pH 6 (4.5-8.0) Urine Specific [place] 1.020 (1.005-1.035) Urine Protein 4+ (NEGATIVE) H Urine Glucose (UA) Negative (NEGATIVE) Urine Ketones 3+ (NEGATIVE) H Urine Blood 5+ (NEGATIVE) H Urine Nitrite Negative (NEGATIVE) Urine Bilirubin 1+ (NEGATIVE) H Urine Ictotest Negative (NEGATIVE) Urine Urobilinogen Normal MG/DL (0.0-1.0) Urine Leukocyte Esterase 3+ (NEGATIVE) H Urine RBC 30-40 /HPF (0 - 2) H Urine WBC Tntc /HPF (0 - 2) H Urine Squamous Epithelial Cells Few /LPF (NONE/OCC) Urine Bacteria Few /HPF (NONE) Microbiology Date/Time Source Procedure Growth Status 03/06/18 10:12 Nasal Nares Influenza Types A,B Antigen (NGA) - Final Complete EKG Diagnostic Results Rate: tachycardiac Rhythm: other - S.tachycardia ST Segments: no acute changes Chest X-Ray Diagnostic Results Chest X-Ray Diagnostic Results : Chest X-Ray Ordered: Yes # of Views/Limited/Complete: 1 View Indication: Other EP Interpretation: No Interpretation: other - Questionable opacity RUL Impression: Other - See above Electronically Signed by: Halima Chery DO Subjective ROS Limited/Unobtainable: No Allergies: Coded Allergies: No Known Allergies (Unverified , 03/06/18) Objective Last 24 Hour Vital Signs Date Time Temp Pulse Resp B/P (MAP) Pulse Ox O2 Delivery O2 Flow Rate FiO2 03/09/18 09:01 85 117/71 03/09/18 08:23 99 Nasal Cannula 2.0 28 03/09/18 08:23 Nasal Cannula 2.0 28 03/09/18 08:00 97.6 85 19 117/71 (86) 99 03/09/18 04:00 Nasal Cannula 2.0 03/09/18 04:00 70 03/09/18 04:00 97.7 71 20 111/52 (71) 100 03/09/18 00:00 Nasal Cannula 2.0 03/09/18 00:00 98.1 90 20 126/59 (81) 100 03/09/18 00:00 91 03/08/18 20:00 96 03/08/18 20:00 Nasal Cannula 2.0 03/08/18 20:00 98.6 91 18 127/64 (85) 100 03/08/18 18:30 100 Nasal Cannula 2.0 28 03/08/18 18:30 Nasal Cannula 2.0 28 03/08/18 16:00 Nasal Cannula 2.0 03/08/18 16:00 104 03/08/18 16:00 98.4 98 18 121/74 (90) 94 03/08/18 12:00 107 03/08/18 12:00 98.3 63 19 132/69 (90) 95 03/08/18 12:00 Nasal Cannula 2.0 03/08/18 10:00 88 116/58 Intake and Output 03/08/18 03/09/18 18:59 06:59 Intake Total 930 ml 600 ml Output Total 700 ml Balance 930 ml -100 ml Intake IV Total 930 ml 600 ml Output Urine Total 700 ml # Bowel Movements 1 Microbiology Date/Time Source Procedure Growth Status 03/07/18 18:00 Blood Blood Culture - Preliminary NO GROWTH AFTER 24 HOURS Resulted 03/07/18 17:45 Blood Blood Culture - Preliminary NO GROWTH AFTER 24 HOURS Resulted 03/06/18 10:12 Blood Blood Culture - Final Proteus Mirabilis Complete 03/06/18 09:57 Blood Blood Culture - Final Proteus Mirabilis Staphylococcus Epidermidis Complete 03/06/18 15:07 Sputum Induced Gram Stain - Final Complete 03/06/18 15:07 Sputum Culture - Final Staphylococcus Aureus - Mrsa Leda Albicans Complete 03/06/18 13:20 Nasal Nares MRSA Culture - Final Staphylococcus Aureus - Mrsa Complete 03/06/18 10:12 Nasal Nares Influenza Types A,B Antigen (NGA) - Final Complete 03/06/18 10:47 Urine,Clean Catch Urine Culture - Preliminary Pseudomonas Aeruginosa Strep Species, Gamma-Hemolytic Yeast Species Resulted 03/06/18 13:20 Rectum - Final NO CARBAPENEM-RESISTANT ENTEROBACTERI... Complete Laboratory Tests 03/09/18 04:00: White Blood Count 7.8, Red Blood Count 3.25L, Hemoglobin 9.6L, Hematocrit 29.7L , Mean Corpuscular Volume 91, Mean Corpuscular Hemoglobin 29.5, Mean Corpuscular Hemoglobin Concent 32.3, Red Cell Distribution Width 13.2, Platelet Count 132L, Mean Platelet Volume 5.6L, Neutrophils (%) (Auto) 67.8, Lymphocytes (%) (Auto) 19.9L, Monocytes (%) (Auto) 10.5H, Eosinophils (%) (Auto) 1.1, Basophils (%) (Auto) 0.7, Sodium Level 144, Potassium Level 3.3L, Chloride Level 112H, Carbon Dioxide Level 29, Anion Gap 3L, Blood Urea Nitrogen 13, Creatinine 0.5L, Estimat Glomerular Filtration Rate , Glucose Level 122H, Calcium Level 8.2L Current Medications Medications (Trade) Dose Ordered Sig/Cele Route PRN Reason Start Time Stop Time Status Last Admin Dose Admin Acetaminophen (Tylenol) 650 mg Q4H PRN ORAL fever (temp>100.5F) 03/07/18 17:11 04/05/18 17:10 Al Hydroxide/Mg Hydroxide (Mylanta II) 30 ml Q6H PRN ORAL dyspepsia 03/07/18 17:11 04/05/18 17:10 Albuterol/ Ipratropium (Albuterol/ Ipratropium) 3 ml Q4H PRN HHN Shortness of Breath 03/07/18 17:11 03/11/18 17:10 Atenolol (Tenormin) 25 mg DAILY ORAL 03/08/18 09:00 04/06/18 08:59 03/09/18 09:01 Cefepime HCl 2 gm/ Dextrose 110 ml @ 220 mls/hr DAILY IV 03/08/18 09:00 03/13/18 14:59 03/09/18 09:01 Dextrose/ Electrolytes 1,000 ml @ 75 mls/hr [id number] IV 03/07/18 17:11 04/06/18 17:10 03/09/18 02:55 Gabapentin (Neurontin) 300 mg THREE TIMES A DAY ORAL 03/07/18 18:00 04/05/18 17:59 03/09/18 09:01 Heparin Sodium (Porcine) (Heparin 5000 units/ml) 5,000 units EVERY 12 HOURS SUBQ 03/07/18 21:00 04/05/18 20:59 03/09/18 09:04 Nitroglycerin (Ntg) 0.4 mg Q5M PRN SL Prn Chest Pain 03/07/18 17:11 04/05/18 17:10 Olanzapine (ZyPREXA) 2.5 mg Q6H PRN ORAL agitation 03/08/18 00:00 04/07/18 00:00 Ondansetron HCl (Zofran) 4 mg Q6H PRN IVP Nausea & Vomiting 03/07/18 17:11 04/05/18 17:10 Polyethylene Glycol (Miralax) 17 gm DAILYPRN PRN ORAL Constipation 03/07/18 17:12 04/06/18 17:11 Promethazine HCl/ Codeine (Phenergan with Codeine) 5 ml Q4H PRN ORAL For Cough 03/07/18 17:12 04/05/18 17:11 Tamsulosin HCl (Flomax) 0.4 mg BEDTIME ORAL 03/07/18 21:00 04/05/18 20:59 03/08/18 21:53 Temazepam (Restoril) 15 mg HSPRN PRN ORAL Insomnia 03/07/18 17:12 03/14/18 17:11 Vancomycin HCl (Vanco rx to dose) 1 ea DAILY PRN MISC Per rx protocol 03/08/18 09:00 04/05/18 13:29 Vancomycin HCl 500 mg/Dextrose 110 ml @ 110 mls/hr Q24H IVPB 03/08/18 16:00 03/12/18 15:59 03/08/18 16:12 Pacheco Baez MD Mar 09, 2018 09:07
--- NOTE | 2018-03-09 09:21 | General Progress Note ---
Assessment/Plan Problem List: (1) Severe malnutrition ICD Codes: E43 - Unspecified severe protein-calorie malnutrition SNOMED: 57947649 (2) Encounter for PEG (percutaneous endoscopic gastrostomy) ICD Codes: Z43.1 - Encounter for attention to gastrostomy SNOMED: 540462319, 207570339 (3) Dehydration ICD Codes: E86.0 - Dehydration SNOMED: 44180164 (4) Dysphasia ICD Codes: R47.02 - Dysphasia SNOMED: 48195589 (5) Atrial fibrillation with RVR ICD Codes: I48.91 - Unspecified atrial fibrillation SNOMED: 488837000161722 Assessment/Plan NGTF plan possible PEG on Saturday pending consent drop in H&H without any obvious bleeding fu CBC anemia work up Subjective ROS Limited/Unobtainable: No Allergies: Coded Allergies: No Known Allergies (Unverified , 03/06/18) Objective Last 24 Hour Vital Signs Date Time Temp Pulse Resp B/P (MAP) Pulse Ox O2 Delivery O2 Flow Rate FiO2 03/09/18 09:01 85 117/71 03/09/18 08:23 99 Nasal Cannula 2.0 28 03/09/18 08:23 Nasal Cannula 2.0 28 03/09/18 08:00 97.6 85 19 117/71 (86) 99 03/09/18 04:00 Nasal Cannula 2.0 03/09/18 04:00 70 03/09/18 04:00 97.7 71 20 111/52 (71) 100 03/09/18 00:00 Nasal Cannula 2.0 03/09/18 00:00 98.1 90 20 126/59 (81) 100 03/09/18 00:00 91 03/08/18 20:00 96 03/08/18 20:00 Nasal Cannula 2.0 03/08/18 20:00 98.6 91 18 127/64 (85) 100 03/08/18 18:30 100 Nasal Cannula 2.0 28 03/08/18 18:30 Nasal Cannula 2.0 28 03/08/18 16:00 Nasal Cannula 2.0 03/08/18 16:00 104 03/08/18 16:00 98.4 98 18 121/74 (90) 94 03/08/18 12:00 107 03/08/18 12:00 98.3 63 19 132/69 (90) 95 03/08/18 12:00 Nasal Cannula 2.0 03/08/18 10:00 88 116/58 Intake and Output 03/08/18 03/09/18 18:59 06:59 Intake Total 930 ml 600 ml Output Total 700 ml Balance 930 ml -100 ml Intake IV Total 930 ml 600 ml Output Urine Total 700 ml # Bowel Movements 1 Laboratory Tests 03/09/18 04:00: White Blood Count 7.8, Red Blood Count 3.25L, Hemoglobin 9.6L, Hematocrit 29.7L , Mean Corpuscular Volume 91, Mean Corpuscular Hemoglobin 29.5, Mean Corpuscular Hemoglobin Concent 32.3, Red Cell Distribution Width 13.2, Platelet Count 132L, Mean Platelet Volume 5.6L, Neutrophils (%) (Auto) 67.8, Lymphocytes (%) (Auto) 19.9L, Monocytes (%) (Auto) 10.5H, Eosinophils (%) (Auto) 1.1, Basophils (%) (Auto) 0.7, Sodium Level 144, Potassium Level 3.3L, Chloride Level 112H, Carbon Dioxide Level 29, Anion Gap 3L, Blood Urea Nitrogen 13, Creatinine 0.5L, Estimat Glomerular Filtration Rate , Glucose Level 122H, Calcium Level 8.2L Height (Feet): 5 Height (Inches): 3.00 Weight (Pounds): 100 General Appearance: lethargic EENT: normal ENT inspection Cardiovascular: normal rate Respiratory/Chest: decreased breath sounds Abdomen: normal bowel sounds, non tender, soft Extremities: non-tender Ernesto Velez MD Mar 09, 2018 09:21
[2018-03-09 12:00] VITALS: BP_SYST 117; BP_SYST 123; BP_DIAS 69; BP_DIAS 71
--- NOTE | 2018-03-09 13:31 | Consultation ---
History of Present Illness General Date patient seen: Mar 09, 2018 Chief Complaint: General Complaint Referring physician: LANA OSBORNE Reason for Consultation: sacral ulcer Present Illness HPI 87F noted to have sacral wound requiring care and management upon admission. surgery called to evaluate and assist with care/management. patient seen, chart reviewed, patient examined. Allergies: Coded Allergies: No Known Allergies (Unverified , 03/06/18) Medication History Scheduled Ascorbic Acid* (Vitamin C*), 500 MG ORAL TWICE A DAY, (Reported) Atenolol* (Tenormin*), 25 MG ORAL DAILY, (Reported) Atorvastatin Calcium* (Lipitor*), 10 MG ORAL BEDTIME, (Reported) Celecoxib* (Celebrex*), 200 MG ORAL TWICE A DAY, (Reported) Docusate Sodium* (Docusate Sodium*), 100 MG ORAL TWICE A DAY, (Reported) Ferrous Gluconate (Ferrous Gluconate), 324 MG PO BID, (Reported) Gabapentin* (Gabapentin*), 300 MG ORAL THREE TIMES A DAY, (Reported) Multivitamins* (Multivitamins*), 1 TAB ORAL DAILY, (Reported) Tamsulosin Hcl (Tamsulosin Hcl*), 0.4 MG ORAL BEDTIME, (Reported) Zinc Sulfate (Zinc Sulfate*), 220 MG ORAL DAILY, (Reported) [Prostat], 30 ML PO DAILY, (Reported) Scheduled PRN Acetaminophen (Acetaminophen), 650 MG PO Q4HR PRN for Fever/Headache/Mild Pain, (Reported) Calcium Carbonate (Calcium Carbonate), 500 MG PO Q6HR PRN for For Pain, ( Reported) Hydrocodone Bit/Acetaminophen 10-325* ([place] 10-325*), 1 TAB ORAL Q4H PRN for For Pain, (Reported) Hydrocodone Bit/Acetaminophen 5-325* ([place] 5-325*), 1 TAB ORAL Q4H PRN for For Pain, (Reported) Patient History History Provided By: Medical Record, PMD Healthcare decision maker Resuscitation status Full Code Advanced Directive on File Past Medical/Surgical History Past Medical/Surgical History: (1) Atrial fibrillation with RVR (2) Hypernatremia (3) Pneumonia (4) Lactic acid acidosis (5) Pyelonephritis (6) Dehydration (7) Dysphasia (8) Electrolyte imbalance (9) Severe malnutrition (10) Encounter for PEG (percutaneous endoscopic gastrostomy) (11) Pyelonephritis (12) Pyelonephritis (13) Sepsis (14) encephalopathy due to metabolic factor (15) Dysphagia (16) Hypercholesteremia (17) HTN (hypertension) (18) Sacral decubitus ulcer, stage IV Review of Systems All Other Systems: negative except mentioned in HPI Physical Exam General Appearance: no apparent distress Lines, tubes and drains: peripheral HEENT: mucous membranes moist Neck: normal inspection Respiratory/Chest: no respiratory distress Cardiovascular/Chest: regular rhythm Abdomen: soft, no organomegaly, no mass Extremities: other Skin Exam: warm/dry Last 24 Hour Vital Signs Date Time Temp Pulse Resp B/P (MAP) Pulse Ox O2 Delivery O2 Flow Rate FiO2 03/09/18 09:01 85 117/71 03/09/18 08:23 99 Nasal Cannula 2.0 28 03/09/18 08:23 Nasal Cannula 2.0 28 03/09/18 08:00 Nasal Cannula 2.0 03/09/18 08:00 97.6 85 19 117/71 (86) 99 03/09/18 08:00 77 03/09/18 04:00 Nasal Cannula 2.0 03/09/18 04:00 70 03/09/18 04:00 97.7 71 20 111/52 (71) 100 03/09/18 00:00 Nasal Cannula 2.0 03/09/18 00:00 98.1 90 20 126/59 (81) 100 03/09/18 00:00 91 03/08/18 20:00 96 03/08/18 20:00 Nasal Cannula 2.0 03/08/18 20:00 98.6 91 18 127/64 (85) 100 03/08/18 18:30 100 Nasal Cannula 2.0 28 03/08/18 18:30 Nasal Cannula 2.0 28 03/08/18 16:00 Nasal Cannula 2.0 03/08/18 16:00 104 03/08/18 16:00 98.4 98 18 121/74 (90) 94 Intake and Output 03/08/18 03/09/18 19:00 07:00 Intake Total 930 ml 525 ml Output Total 700 ml Balance 930 ml -175 ml Intake IV Total 930 ml 525 ml Output Urine Total 700 ml # Bowel Movements 1 Laboratory Tests Test 03/09/18 04:00 White Blood Count 7.8 K/UL (4.8-10.8) Red Blood Count 3.25 M/UL (4.20-5.40) L Hemoglobin 9.6 G/DL (12.0-16.0) L Hematocrit 29.7 % (37.0-47.0) L Mean Corpuscular Volume 91 FL (80-99) Mean Corpuscular Hemoglobin 29.5 PG (27.0-31.0) Mean Corpuscular Hemoglobin Concent 32.3 G/DL (32.0-36.0) Red Cell Distribution Width 13.2 % (11.6-14.8) Platelet Count 132 K/UL (150-450) L Mean Platelet Volume 5.6 FL (6.5-10.1) L Neutrophils (%) (Auto) 67.8 % (45.0-75.0) Lymphocytes (%) (Auto) 19.9 % (20.0-45.0) L Monocytes (%) (Auto) 10.5 % (1.0-10.0) H Eosinophils (%) (Auto) 1.1 % (0.0-3.0) Basophils (%) (Auto) 0.7 % (0.0-2.0) Sodium Level 144 MMOL/L (136-145) Potassium Level 3.3 MMOL/L (3.5-5.1) L Chloride Level 112 MMOL/L (98-107) H Carbon Dioxide Level 29 MMOL/L (21-32) Anion Gap 3 mmol/L (5-15) L Blood Urea Nitrogen 13 mg/dL (7-18) Creatinine 0.5 MG/DL (0.55-1.30) L Estimat Glomerular Filtration Rate mL/min (>60) Glucose Level 122 MG/DL (74-106) H Calcium Level 8.2 MG/DL (8.5-10.1) L Height (Feet): 5 Height (Inches): 3.00 Weight (Pounds): 100 Medications Current Medications Medications (Trade) Dose Ordered Sig/Cele Route PRN Reason Start Time Stop Time Status Last Admin Dose Admin Acetaminophen (Tylenol) 650 mg Q4H PRN ORAL fever (temp>100.5F) 03/07/18 17:11 04/05/18 17:10 Al Hydroxide/Mg Hydroxide (Mylanta II) 30 ml Q6H PRN ORAL dyspepsia 03/07/18 17:11 04/05/18 17:10 Albuterol/ Ipratropium (Albuterol/ Ipratropium) 3 ml Q4H PRN HHN Shortness of Breath 03/07/18 17:11 03/11/18 17:10 Atenolol (Tenormin) 25 mg DAILY ORAL 03/08/18 09:00 04/06/18 08:59 03/09/18 09:01 Cefepime HCl 2 gm/ Dextrose 110 ml @ 220 mls/hr DAILY IV 03/08/18 09:00 03/13/18 14:59 03/09/18 09:01 Dextrose/ Electrolytes 1,000 ml @ 75 mls/hr [id number] IV 03/07/18 17:11 04/06/18 17:10 03/09/18 02:55 Gabapentin (Neurontin) 300 mg THREE TIMES A DAY ORAL 03/07/18 18:00 04/05/18 17:59 03/09/18 12:53 Heparin Sodium (Porcine) (Heparin 5000 units/ml) 5,000 units EVERY 12 HOURS SUBQ 03/07/18 21:00 04/05/18 20:59 03/09/18 09:04 Nitroglycerin (Ntg) 0.4 mg Q5M PRN SL Prn Chest Pain 03/07/18 17:11 04/05/18 17:10 Olanzapine (ZyPREXA) 2.5 mg Q6H PRN ORAL agitation 03/08/18 00:00 04/07/18 00:00 Ondansetron HCl (Zofran) 4 mg Q6H PRN IVP Nausea & Vomiting 03/07/18 17:11 04/05/18 17:10 Polyethylene Glycol (Miralax) 17 gm DAILYPRN PRN ORAL Constipation 03/07/18 17:12 04/06/18 17:11 Promethazine HCl/ Codeine (Phenergan with Codeine) 5 ml Q4H PRN ORAL For Cough 03/07/18 17:12 04/05/18 17:11 Tamsulosin HCl (Flomax) 0.4 mg BEDTIME ORAL 03/07/18 21:00 04/05/18 20:59 03/08/18 21:53 Temazepam (Restoril) 15 mg HSPRN PRN ORAL Insomnia 03/07/18 17:12 03/14/18 17:11 Vancomycin HCl (Vanco rx to dose) 1 ea DAILY PRN MISC Per rx protocol 03/08/18 09:00 04/05/18 13:29 Vancomycin HCl 500 mg/Dextrose 110 ml @ 110 mls/hr Q24H IVPB 03/08/18 16:00 03/12/18 15:59 03/08/18 16:12 Assessment/Plan Problem List: (1) Sacral decubitus ulcer, stage IV Assessment & Plan: Pt presents with fungal rash R and L axillae ,R and L chest and back. Affected areas red with patches of small pimples. Stage IV Full thickness pressure injury to R elbow (L)2.2cm x (W03cm x (D)0.7cm ,undermining 9-3 by 1.8cm @9o'clock.Base of wound beefy red with trace slough, bone is visible.Wound is malodorous with small amt brown exudate. Non- blanchable erythema periwound. Stage IV Full thickness pressure injury to sacrum (L)8cm x (W)10.6cm x (D)2.7cm , Undermining 7-4 by 3.5cm @12o'clock.Wound is malodorous with small amt sanguineous exudate.Wound bed beefy red with an area of soft necrosis at 8-12 at base of wound and bone is visible at coccyx.Edges non-adherent .Non- blanching erythema with moisture denudement periwound and entire buttocks extending into perineum. Contractures bilat lower ext with large senile purpura noted to lateral R tibia ,Posterior and nereyda L tibia. Full thickness pressure injury noted to L heel (L)4cm x (W)3.5cm,wound bed viable ,(+)maceration along edges with area of soft necrosis periwound . Tx.Plan: Loosely pack R elbow with Dakin's0.125% charo soaked gauze.Apply Cavilon skin barrier periwound .Cover with optifoam drsg Twice daily and prn. Loosely pack sacral wound with Dakin's 0.125% charo soaked gauze. Apply Moisture Barrier Paste periwound .Cover optifoam drsg Twice daily and prn. Cleanse L heel wound with Saline. Apply Hydrogel .Cavilon skin barrier periwound.Cover with Optifoam drsg Daily and prn. Air Fluidized Mattress. Reposition at least every 2hours or as tolerated. Soft pillow between knees. Off-load heels with pillow. Remedy Antifungal Cream to fungal area bilat axillae ,chest and abd Twice daily. ICD Codes: L89.154 - Pressure ulcer of sacral region, stage 4 SNOMED: [id number], [id number] Derick Ramsay Mar 09, 2018 13:31
--- NOTE | 2018-03-09 14:05 | Internal Med Progress Note ---
Subjective Physician Name Davian Scott Attending Physician Davian Scott MD Current Medications Medications (Trade) Dose Ordered Sig/Cele Route PRN Reason Start Time Stop Time Status Last Admin Dose Admin Acetaminophen (Tylenol) 650 mg Q4H PRN ORAL fever (temp>100.5F) 03/07/18 17:11 04/05/18 17:10 Al Hydroxide/Mg Hydroxide (Mylanta II) 30 ml Q6H PRN ORAL dyspepsia 03/07/18 17:11 04/05/18 17:10 Albuterol/ Ipratropium (Albuterol/ Ipratropium) 3 ml Q4H PRN HHN Shortness of Breath 03/07/18 17:11 03/11/18 17:10 Atenolol (Tenormin) 25 mg DAILY ORAL 03/08/18 09:00 04/06/18 08:59 03/09/18 09:01 Cefepime HCl 2 gm/ Dextrose 110 ml @ 220 mls/hr DAILY IV 03/08/18 09:00 03/13/18 14:59 03/09/18 09:01 Dextrose/ Electrolytes 1,000 ml @ 75 mls/hr [id number] IV 03/07/18 17:11 04/06/18 17:10 03/09/18 02:55 Gabapentin (Neurontin) 300 mg THREE TIMES A DAY ORAL 03/07/18 18:00 04/05/18 17:59 03/09/18 12:53 Heparin Sodium (Porcine) (Heparin 5000 units/ml) 5,000 units EVERY 12 HOURS SUBQ 03/07/18 21:00 04/05/18 20:59 03/09/18 09:04 Nitroglycerin (Ntg) 0.4 mg Q5M PRN SL Prn Chest Pain 03/07/18 17:11 04/05/18 17:10 Olanzapine (ZyPREXA) 2.5 mg Q6H PRN ORAL agitation 03/08/18 00:00 04/07/18 00:00 Ondansetron HCl (Zofran) 4 mg Q6H PRN IVP Nausea & Vomiting 03/07/18 17:11 04/05/18 17:10 Polyethylene Glycol (Miralax) 17 gm DAILYPRN PRN ORAL Constipation 03/07/18 17:12 04/06/18 17:11 Promethazine HCl/ Codeine (Phenergan with Codeine) 5 ml Q4H PRN ORAL For Cough 03/07/18 17:12 04/05/18 17:11 Tamsulosin HCl (Flomax) 0.4 mg BEDTIME ORAL 03/07/18 21:00 04/05/18 20:59 03/08/18 21:53 Temazepam (Restoril) 15 mg HSPRN PRN ORAL Insomnia 03/07/18 17:12 03/14/18 17:11 Vancomycin HCl (Vanco rx to dose) 1 ea DAILY PRN MISC Per rx protocol 03/08/18 09:00 04/05/18 13:29 Vancomycin HCl 500 mg/Dextrose 110 ml @ 110 mls/hr Q24H IVPB 03/08/18 16:00 03/12/18 15:59 03/08/18 16:12 Allergies: Coded Allergies: No Known Allergies (Unverified , 03/06/18) Subjective awake, responsive, open eyes, not verbal. Objective Last Vital Signs Date Time Temp Pulse Resp B/P (MAP) Pulse Ox O2 Delivery O2 Flow Rate FiO2 03/09/18 11:53 60 03/09/18 09:01 117/71 03/09/18 08:23 99 Nasal Cannula 2.0 28 03/09/18 08:00 97.6 19 Laboratory Tests Test 03/09/18 04:00 White Blood Count 7.8 K/UL (4.8-10.8) Red Blood Count 3.25 M/UL (4.20-5.40) L Hemoglobin 9.6 G/DL (12.0-16.0) L Hematocrit 29.7 % (37.0-47.0) L Mean Corpuscular Volume 91 FL (80-99) Mean Corpuscular Hemoglobin 29.5 PG (27.0-31.0) Mean Corpuscular Hemoglobin Concent 32.3 G/DL (32.0-36.0) Red Cell Distribution Width 13.2 % (11.6-14.8) Platelet Count 132 K/UL (150-450) L Mean Platelet Volume 5.6 FL (6.5-10.1) L Neutrophils (%) (Auto) 67.8 % (45.0-75.0) Lymphocytes (%) (Auto) 19.9 % (20.0-45.0) L Monocytes (%) (Auto) 10.5 % (1.0-10.0) H Eosinophils (%) (Auto) 1.1 % (0.0-3.0) Basophils (%) (Auto) 0.7 % (0.0-2.0) Sodium Level 144 MMOL/L (136-145) Potassium Level 3.3 MMOL/L (3.5-5.1) L Chloride Level 112 MMOL/L (98-107) H Carbon Dioxide Level 29 MMOL/L (21-32) Anion Gap 3 mmol/L (5-15) L Blood Urea Nitrogen 13 mg/dL (7-18) Creatinine 0.5 MG/DL (0.55-1.30) L Estimat Glomerular Filtration Rate mL/min (>60) Glucose Level 122 MG/DL (74-106) H Calcium Level 8.2 MG/DL (8.5-10.1) L Microbiology Date/Time Source Procedure Growth Status 03/07/18 18:00 Blood Blood Culture - Preliminary NO GROWTH AFTER 24 HOURS Resulted 03/07/18 17:45 Blood Blood Culture - Preliminary NO GROWTH AFTER 24 HOURS Resulted 03/06/18 15:07 Sputum Induced Gram Stain - Final Complete 03/06/18 15:07 Sputum Culture - Final Staphylococcus Aureus - Mrsa Leda Albicans Complete Intake and Output 03/08/18 03/09/18 19:00 07:00 Intake Total 930 ml 525 ml Output Total 700 ml Balance 930 ml -175 ml Intake IV Total 930 ml 525 ml Output Urine Total 700 ml # Bowel Movements 1 Objective General: No acute distress, awake and open eyes HEENT: NCAT, sclera anicteric, PERRL, NG Tube Neck: Supple, no significant jugular venous distention, Lungs: fair inspiratory effort, Decrease air at bases, no Wheeze or Rales. Heart: Regular rate and rhythm, normal S1/S2, no murmur, Abdomen: soft, nontender, nondistended. Normoactive bowel sounds. Extremities: No Cyanosis , clubbing or edema. Neuro: A&O x 1, Limited due to patient status, Functional Quadriplegia Skin: warm, no rashes, Assessment/Plan Assessment/Plan Sepsis due to UTI Bacteremia Probability early PNA Functional Quadriplegia. HTN Afib dysphagia HLD Dementia All extremities contracture Multiple Decubitus Ulcer Plan: Abx: Cefepime and Vanco IV Tube feeding Kcl supplements Full code heparin SQ F/U with labs and cultures. Davian Scott MD Mar 09, 2018 14:05
--- NOTE | 2018-03-09 14:19 | Cardiology Report ---
APPROVED REPORT EKG Measurement Heart [id number] Sinus tachycardia with premature supraventricular complexes Low voltage QRS Cannot rule out Anterior infarct, age undetermined Abnormal ECG
[2018-03-09 16:00] VITALS: BP 107/54
[2018-03-09] MEDS: Vancomycin 500 MG in D5W 110 ML IVPB SCH (17:19)
--- NOTE | 2018-03-09 19:17 | Pulmonology Progress Note ---
Assessment/Plan Assessment/Plan Pulmonary Consultation Note HPI This patient is brought in by EMS. Per report, the patient has had failure to thrive and generalized weakness. They also note hematuria. The patient is nonverbal and unable to articulate any complaints. She has also stopped eating per the medical record and nursing notes. There is no other history of present illness available or documented. Allergies: No Known Allergies Past Medical History: HTN, AFib, dementia, HL psych hx, other - contractures, DU, muscle wasting, previous G tube Social History: Denies: smoking, alcohol use, drug use All Other Systems: limited Physical Exam Vital Signs Noted General Appearance: no apparent distress, alert, GCS 15, non-toxic, other - frail, elderly, chronically ill, contracted, non-verbal, Chronically Ill Head: normocephalic, atraumatic Eyes: bilateral eye normal inspection, bilateral eye PERRL ENT: no angioedema Neck: other - flexed. contracted. Respiratory: chest non-tender, lungs clear, normal breath sounds, no respiratory distress, no retraction, no accessory muscle use, speaking full sentences Cardiovascular #1: no edema, tachycardia, systolic murmur, irregularly irregular Gastrointestinal: normal bowel sounds, non tender, soft, non-distended, no guarding, no rebound, other - colostomy bag in place. Rectal: deferred Musculoskeletal: back normal, gait/station normal, normal range of motion, non- tender Neurologic: alert, other - non-focal. Contracted, non-verbal Psychiatric: mood/affect normal Skin: no rash, warm/dry, well hydrated, other - Multiple DU Impression: Pyelonephritis Sepsis Pneumonia Hypernatremia Lactic acid acidosis HTN, AFib, Dementia, HL psych hx, other - contractures, DU, muscle wasting, previous G tube Plan IV Antibiotics O2 PRN PPX IVF PTAmeds Aspiration precautions Laboratory Tests Test 03/06/18 10:12 03/06/18 10:25 03/06/18 10:47 White Blood Count 15.7 K/UL (4.8-10.8) H Red Blood Count 4.60 M/UL (4.20-5.40) Hemoglobin 13.3 G/DL (12.0-16.0) Hematocrit 42.1 % (37.0-47.0) Mean Corpuscular Volume 91 FL (80-99) Mean Corpuscular Hemoglobin 28.9 PG (27.0-31.0) Mean Corpuscular Hemoglobin Concent 31.7 G/DL (32.0-36.0) L Red Cell Distribution Width 13.3 % (11.6-14.8) Platelet Count 246 K/UL (150-450) Mean Platelet Volume 5.4 FL (6.5-10.1) L Neutrophils (%) (Auto) 77.5 % (45.0-75.0) H Lymphocytes (%) (Auto) 13.9 % (20.0-45.0) L Monocytes (%) (Auto) 8.1 % (1.0-10.0) Eosinophils (%) (Auto) 0.1 % (0.0-3.0) Basophils (%) (Auto) 0.4 % (0.0-2.0) Prothrombin Time 12.4 SEC (9.30-11.50) H Prothrombin Time INR 1.2 (0.9-1.1) H PTT 29 SEC (23-33) Sodium Level 147 MMOL/L (136-145) H Potassium Level 4.8 MMOL/L (3.5-5.1) Chloride Level 108 MMOL/L (98-107) H Carbon Dioxide Level 30 MMOL/L (21-32) Anion Gap 9 mmol/L (5-15) Blood Urea Nitrogen 18 mg/dL (7-18) Creatinine 0.8 MG/DL (0.55-1.30) Estimate Glomerular Filtration Rate mL/min (>60) Glucose Level 114 MG/DL (74-106) H Lactic Acid Level 3.60 mmol/L (0.4-2.0) H Calcium Level 9.1 MG/DL (8.5-10.1) Phosphorus Level 3.2 MG/DL (2.5-4.9) Magnesium Level 1.9 MG/DL (1.8-2.4) Total Bilirubin 0.6 MG/DL (0.2-1.0) Aspartate Amino Transferase (AST) 27 U/L (15-37) Alanine Aminotransferase (ALT) 16 U/L (12-78) Alkaline Phosphatase 128 U/L (46-116) H Total Creatine Kinase 59 U/L (26-308) Creatine Kinase MB 1.6 NG/ML (0.0-3.6) Creatine Kinase MB Relative Index 2.7 Total Protein 6.7 G/DL (6.4-8.2) Albumin 2.1 G/DL (3.4-5.0) L Globulin 4.6 g/dL Albumin/Globulin Ratio 0.5 (1.0-2.7) L Troponin I 0.033 ng/mL (0.000-0.056) Urine Color Yellow Urine Appearance Cloudy Urine pH 6 (4.5-8.0) Urine Specific [place] 1.020 (1.005-1.035) Urine Protein 4+ (NEGATIVE) H Urine Glucose (UA) Negative (NEGATIVE) Urine Ketones 3+ (NEGATIVE) H Urine Blood 5+ (NEGATIVE) H Urine Nitrite Negative (NEGATIVE) Urine Bilirubin 1+ (NEGATIVE) H Urine Ictotest Negative (NEGATIVE) Urine Urobilinogen Normal MG/DL (0.0-1.0) Urine Leukocyte Esterase 3+ (NEGATIVE) H Urine RBC 30-40 /HPF (0 - 2) H Urine WBC Tntc /HPF (0 - 2) H Urine Squamous Epithelial Cells Few /LPF (NONE/OCC) Urine Bacteria Few /HPF (NONE) Microbiology Date/Time Source Procedure Growth Status 03/06/18 10:12 Nasal Nares Influenza Types A,B Antigen (NGA) - Final Complete EKG Diagnostic Results Rate: tachycardiac Rhythm: other - S.tachycardia ST Segments: no acute changes Chest X-Ray Diagnostic Results Chest X-Ray Diagnostic Results : Chest X-Ray Ordered: Yes # of Views/Limited/Complete: 1 View Indication: Other EP Interpretation: No Interpretation: other - Questionable opacity RUL Impression: Other - See above Electronically Signed by: Halima Chery DO Subjective ROS Limited/Unobtainable: No Allergies: Coded Allergies: No Known Allergies (Unverified , 03/06/18) Objective Last 24 Hour Vital Signs Date Time Temp Pulse Resp B/P (MAP) Pulse Ox O2 Delivery O2 Flow Rate FiO2 03/09/18 16:00 98.0 92 19 107/54 (71) 95 03/09/18 16:00 Nasal Cannula 2.0 03/09/18 16:00 61 03/09/18 12:00 Nasal Cannula 2.0 03/09/18 12:00 98.3 96 18 123/69 (87) 100 03/09/18 11:53 60 03/09/18 09:01 85 117/71 03/09/18 08:23 99 Nasal Cannula 2.0 28 03/09/18 08:23 Nasal Cannula 2.0 28 03/09/18 08:00 Nasal Cannula 2.0 03/09/18 08:00 97.6 85 19 117/71 (86) 99 03/09/18 08:00 77 03/09/18 04:00 Nasal Cannula 2.0 03/09/18 04:00 70 03/09/18 04:00 97.7 71 20 111/52 (71) 100 03/09/18 00:00 Nasal Cannula 2.0 03/09/18 00:00 98.1 90 20 126/59 (81) 100 03/09/18 00:00 91 03/08/18 20:00 96 03/08/18 20:00 Nasal Cannula 2.0 03/08/18 20:00 98.6 91 18 127/64 (85) 100 Intake and Output 03/08/18 03/09/18 19:00 07:00 Intake Total 930 ml 525 ml Output Total 700 ml Balance 930 ml -175 ml IV Total 930 ml 525 ml Output Urine Total 700 ml # Bowel Movements 1 Microbiology Date/Time Source Procedure Growth Status 03/07/18 18:00 Blood Blood Culture - Preliminary NO GROWTH AFTER 24 HOURS Resulted 03/07/18 17:45 Blood Blood Culture - Preliminary NO GROWTH AFTER 24 HOURS Resulted Laboratory Tests 03/09/18 04:00: White Blood Count 7.8, Red Blood Count 3.25L, Hemoglobin 9.6L, Hematocrit 29.7L , Mean Corpuscular Volume 91, Mean Corpuscular Hemoglobin 29.5, Mean Corpuscular Hemoglobin Concent 32.3, Red Cell Distribution Width 13.2, Platelet Count 132L, Mean Platelet Volume 5.6L, Neutrophils (%) (Auto) 67.8, Lymphocytes (%) (Auto) 19.9L, Monocytes (%) (Auto) 10.5H, Eosinophils (%) (Auto) 1.1, Basophils (%) (Auto) 0.7, Sodium Level 144, Potassium Level 3.3L, Chloride Level 112H, Carbon Dioxide Level 29, Anion Gap 3L, Blood Urea Nitrogen 13, Creatinine 0.5L, Estimat Glomerular Filtration Rate , Glucose Level 122H, Calcium Level 8.2L 03/09/18 15:30: Vancomycin Level Trough 5.6 Current Medications Medications (Trade) Dose Ordered Sig/Cele Route PRN Reason Start Time Stop Time Status Last Admin Dose Admin Acetaminophen (Tylenol) 650 mg Q4H PRN ORAL fever (temp>100.5F) 03/07/18 17:11 04/05/18 17:10 Al Hydroxide/Mg Hydroxide (Mylanta II) 30 ml Q6H PRN ORAL dyspepsia 03/07/18 17:11 04/05/18 17:10 Albuterol/ Ipratropium (Albuterol/ Ipratropium) 3 ml Q4H PRN HHN Shortness of Breath 03/07/18 17:11 03/11/18 17:10 Atenolol (Tenormin) 25 mg DAILY ORAL 03/08/18 09:00 04/06/18 08:59 03/09/18 09:01 Cefepime HCl 2 gm/ Dextrose 110 ml @ 220 mls/hr DAILY IV 03/08/18 09:00 03/13/18 14:59 03/09/18 09:01 Dextrose/ Electrolytes 1,000 ml @ 75 mls/hr [id number] IV 03/07/18 17:11 04/06/18 17:10 03/09/18 19:01 Gabapentin (Neurontin) 300 mg THREE TIMES A DAY ORAL 03/07/18 18:00 04/05/18 17:59 03/09/18 18:16 Heparin Sodium (Porcine) (Heparin 5000 units/ml) 5,000 units EVERY 12 HOURS SUBQ 03/07/18 21:00 04/05/18 20:59 03/09/18 09:04 Nitroglycerin (Ntg) 0.4 mg Q5M PRN SL Prn Chest Pain 03/07/18 17:11 04/05/18 17:10 Olanzapine (ZyPREXA) 2.5 mg Q6H PRN ORAL agitation 03/08/18 00:00 04/07/18 00:00 Ondansetron HCl (Zofran) 4 mg Q6H PRN IVP Nausea & Vomiting 03/07/18 17:11 04/05/18 17:10 Polyethylene Glycol (Miralax) 17 gm DAILYPRN PRN ORAL Constipation 03/07/18 17:12 04/06/18 17:11 Promethazine HCl/ Codeine (Phenergan with Codeine) 5 ml Q4H PRN ORAL For Cough 03/07/18 17:12 04/05/18 17:11 Tamsulosin HCl (Flomax) 0.4 mg BEDTIME ORAL 03/07/18 21:00 04/05/18 20:59 03/08/18 21:53 Temazepam (Restoril) 15 mg HSPRN PRN ORAL Insomnia 03/07/18 17:12 03/14/18 17:11 Vancomycin HCl (Vanco rx to dose) 1 ea DAILY PRN MISC Per rx protocol 03/08/18 09:00 04/05/18 13:29 Vancomycin HCl 500 mg/Dextrose 110 ml @ 110 mls/hr Q12H IVPB 03/09/18 17:00 03/14/18 16:59 03/09/18 17:19 Pacheco Baez MD Mar 09, 2018 19:17
[2018-03-09 20:00] VITALS: BP 106/58
--- NOTE | 2018-03-09 22:14 | General Progress Note ---
Assessment/Plan Problem List: (1) encephalopathy due to metabolic factor Assessment/Plan zyprexa prn Subjective Neurologic/Psychiatric: Reports: anxiety, emotional problems Allergies: Coded Allergies: No Known Allergies (Unverified , 03/06/18) Objective Last 24 Hour Vital Signs Date Time Temp Pulse Resp B/P (MAP) Pulse Ox O2 Delivery O2 Flow Rate FiO2 03/09/18 20:00 Nasal Cannula 2.0 03/09/18 20:00 98.1 60 20 106/58 (74) 94 03/09/18 20:00 71 03/09/18 19:47 Nasal Cannula 2.0 28 03/09/18 19:46 99 Nasal Cannula 2.0 28 03/09/18 16:00 98.0 92 19 107/54 (71) 95 03/09/18 16:00 Nasal Cannula 2.0 03/09/18 16:00 61 03/09/18 12:00 Nasal Cannula 2.0 03/09/18 12:00 98.3 96 18 123/69 (87) 100 03/09/18 11:53 60 03/09/18 09:01 85 117/71 03/09/18 08:23 99 Nasal Cannula 2.0 28 03/09/18 08:23 Nasal Cannula 2.0 28 03/09/18 08:00 Nasal Cannula 2.0 03/09/18 08:00 97.6 85 19 117/71 (86) 99 03/09/18 08:00 77 03/09/18 04:00 Nasal Cannula 2.0 03/09/18 04:00 70 03/09/18 04:00 97.7 71 20 111/52 (71) 100 03/09/18 00:00 Nasal Cannula 2.0 03/09/18 00:00 98.1 90 20 126/59 (81) 100 03/09/18 00:00 91 Intake and Output 03/08/18 03/09/18 19:00 07:00 Intake Total 930 ml 525 ml Output Total 700 ml Balance 930 ml -175 ml IV Total 930 ml 525 ml Output Urine Total 700 ml # Bowel Movements 1 Laboratory Tests 03/09/18 04:00: White Blood Count 7.8, Red Blood Count 3.25L, Hemoglobin 9.6L, Hematocrit 29.7L , Mean Corpuscular Volume 91, Mean Corpuscular Hemoglobin 29.5, Mean Corpuscular Hemoglobin Concent 32.3, Red Cell Distribution Width 13.2, Platelet Count 132L, Mean Platelet Volume 5.6L, Neutrophils (%) (Auto) 67.8, Lymphocytes (%) (Auto) 19.9L, Monocytes (%) (Auto) 10.5H, Eosinophils (%) (Auto) 1.1, Basophils (%) (Auto) 0.7, Sodium Level 144, Potassium Level 3.3L, Chloride Level 112H, Carbon Dioxide Level 29, Anion Gap 3L, Blood Urea Nitrogen 13, Creatinine 0.5L, Estimat Glomerular Filtration Rate , Glucose Level 122H, Calcium Level 8.2L 03/09/18 15:30: Vancomycin Level Trough 5.6 Height (Feet): 5 Height (Inches): 3.00 Weight (Pounds): 100 General Appearance: confused, moderate distress, agitated Bj Martinez MD Mar 09, 2018 22:14
[2018-03-09] MEDS: Tamsulosin 0.4mg cap ORAL SCH (22:38)
[2018-03-10] VITALS: BP 115/59
[2018-03-10 04:00] VITALS: BP 102/56
[2018-03-10] MEDS: Vancomycin 500 MG in D5W 110 ML IVPB SCH ×2 (05:16→18:02)
--- NOTE | 2018-03-10 06:56 | General Progress Note ---
Assessment/Plan Problem List: (1) Severe malnutrition ICD Codes: E43 - Unspecified severe protein-calorie malnutrition SNOMED: 39852832 (2) Encounter for PEG (percutaneous endoscopic gastrostomy) ICD Codes: Z43.1 - Encounter for attention to gastrostomy SNOMED: 931480145, 813375655 (3) Dehydration ICD Codes: E86.0 - Dehydration SNOMED: 41580732 (4) Dysphasia ICD Codes: R47.02 - Dysphasia SNOMED: 54731757 (5) Atrial fibrillation with RVR ICD Codes: I48.91 - Unspecified atrial fibrillation SNOMED: 302517052787464 Assessment/Plan NGTF plan possible PEG on Saturday>>>unable to locate the son director social service consult pending consent drop in H&H without any obvious bleeding fu CBC anemia work up Subjective ROS Limited/Unobtainable: No Allergies: Coded Allergies: No Known Allergies (Unverified , 03/06/18) Objective Last 24 Hour Vital Signs Date Time Temp Pulse Resp B/P (MAP) Pulse Ox O2 Delivery O2 Flow Rate FiO2 03/10/18 04:00 Nasal Cannula 2.0 03/10/18 04:00 98.0 98 24 102/56 (71) 99 03/10/18 04:00 89 03/10/18 00:00 97.7 95 20 115/59 (77) 99 03/10/18 00:00 Nasal Cannula 2.0 03/10/18 00:00 90 03/09/18 20:00 Nasal Cannula 2.0 03/09/18 20:00 98.1 60 20 106/58 (74) 94 03/09/18 20:00 71 03/09/18 19:47 Nasal Cannula 2.0 28 03/09/18 19:46 99 Nasal Cannula 2.0 28 03/09/18 16:00 98.0 92 19 107/54 (71) 95 03/09/18 16:00 Nasal Cannula 2.0 03/09/18 16:00 61 03/09/18 12:00 Nasal Cannula 2.0 03/09/18 12:00 98.3 96 18 123/69 (87) 100 03/09/18 11:53 60 03/09/18 09:01 85 117/71 03/09/18 08:23 99 Nasal Cannula 2.0 28 03/09/18 08:23 Nasal Cannula 2.0 28 03/09/18 08:00 Nasal Cannula 2.0 03/09/18 08:00 97.6 85 19 117/71 (86) 99 03/09/18 08:00 77 Intake and Output 03/09/18 03/10/18 19:00 07:00 Intake Total 1210 ml 535 ml Output Total 130 ml Balance 1080 ml 535 ml Intake Free Water 80 ml IV Total 1120 ml 475 ml Tube Feeding 10 ml 60 ml Output Urine Total 130 ml Laboratory Tests 03/09/18 15:30: Vancomycin Level Trough 5.6 Height (Feet): 5 Height (Inches): 3.00 Weight (Pounds): 100 General Appearance: no apparent distress EENT: normal ENT inspection Neck: supple Cardiovascular: normal rate Respiratory/Chest: decreased breath sounds Abdomen: normal bowel sounds, non tender, soft Extremities: non-tender Ernesto Velez MD Mar 10, 2018 06:56
[2018-03-10 08:00] VITALS: BP 98/53
[2018-03-10] MEDS: Atenolol 25mg tab ORAL SCH (09:00)
[2018-03-10 09:03] LABS: BASOPHILS % (AUTO) 0.5 % (0.0-2.0); EOSINOPHILS % (AUTO) 0.2 % (0.0-3.0); HEMATOCRIT 34.4 % (37.0-47.0); HEMOGLOBIN 11.1 G/DL (12.0-16.0); LYMPHOCYTES % (AUTO) 11.5 % (20.0-45.0); MEAN CORPUSCULAR VOLUME 90 FL (80-99); MONOCYTES % (AUTO) 7.7 % (1.0-10.0); NEUTROPHILS % (AUTO) 80.1 % (45.0-75.0); PLATELET COUNT 167 K/UL (150-450); RED CELL DISTRIBUTION WIDTH 12.8 % (11.6-14.8); WHITE BLOOD COUNT 9.8 K/UL (4.8-10.8)
[2018-03-10 09:21] LABS: ANION GAP 5 mmol/L (5-15); BLOOD UREA NITROGEN 12 mg/dL (7-18); CALCIUM 8.8 MG/DL (8.5-10.1); CARBON DIOXIDE 26 MMOL/L (21-32); CHLORIDE 108 MMOL/L (98-107); CREATININE 0.6 MG/DL (0.55-1.30); POTASSIUM 4.5 MMOL/L (3.5-5.1); SODIUM 139 MMOL/L (136-145)
[2018-03-10] MEDS: Cefepime HCl 2 GM in D5W 110 ML IV SCH (09:25)
[2018-03-10 09:26] LABS: % IRON SATURATION 34 % (15-50); IRON 29 ug/dL (50-175); TOTAL IRON BINDING CAPACITY 86 ug/dL (250-450)
[2018-03-10] MEDS: Heparin 5000 units/ml inj SUBQ SCH ×2 (09:26→21:55)
[2018-03-10] MEDS ORDERED: Tubing IV Secondary IV ONE (10:39)
--- NOTE | 2018-03-10 11:24 | Infectious Diseases Prog Note ---
Assessment/Plan Assessment/Plan Assessment: Sepsis 2ry to UTI c/w bacteremia and prob early PNA -u/a wbc tntc, nit neg, luek +3; ucx >100k PsA (R cipro/levo, otherwise S), E. fecalis (S Amp, vanco) -03/06 Bcx 4/4 P.mirabiis (R cipro, I Levo; otherwise S), 1/ MRSE ( contaminant); 03/07 NTD -CXR: Subtle patchy opacities in the right upper lung raising question for developing pneumonia. Clinical correlation/follow-up recommended. -influenza sc neg -sp cx MRSA, C. albicans (Colonizer) Low grade fever, SP Leukocytosis, recurrent mild. SP FTT HTN Afib dysphagia HLD Dementia contractures Plan: -Continue empiric IV Vancomycin #07/22 for probable MRSA PNA -Continue Cefepime #07/29 for Proteus bacteremia and PsA UTI -If recurretn fevers, WBC, will obtain CT abd/p -03/06 SP Meropenem x1 -f/u legionella ag urine, Bcx x2 -Monitor CBC/CMP, temperatures -aspiration precautions Subjective Allergies: Coded Allergies: No Known Allergies (Unverified , 03/06/18) Subjective afebrile leukocytosis resolved Repeat Bcx NTD Objective Vital Signs Last 24 Hour Vital Signs Date Time Temp Pulse Resp B/P (MAP) Pulse Ox O2 Delivery O2 Flow Rate FiO2 03/10/18 09:00 86 98/53 03/10/18 08:00 98.8 86 20 98/53 (68) 100 03/10/18 08:00 Nasal Cannula 2.0 03/10/18 07:48 87 03/10/18 07:16 99 Nasal Cannula 2.0 28 03/10/18 07:16 Nasal Cannula 2.0 28 03/10/18 04:00 Nasal Cannula 2.0 03/10/18 04:00 98.0 98 24 102/56 (71) 99 03/10/18 04:00 89 03/10/18 00:00 97.7 95 20 115/59 (77) 99 03/10/18 00:00 Nasal Cannula 2.0 03/10/18 00:00 90 03/09/18 20:00 Nasal Cannula 2.0 03/09/18 20:00 98.1 60 20 106/58 (74) 94 12/23/18 20:00 71 03/09/18 19:47 Nasal Cannula 2.0 28 03/09/18 19:46 99 Nasal Cannula 2.0 28 03/09/18 16:00 98.0 92 19 107/54 (71) 95 03/09/18 16:00 Nasal Cannula 2.0 03/09/18 16:00 61 03/09/18 12:00 Nasal Cannula 2.0 03/09/18 12:00 98.3 96 18 123/69 (87) 100 03/09/18 11:53 60 Height (Feet): 5 Height (Inches): 3.00 Weight (Pounds): 100 Objective General Appearance: no apparent distress, alert, GCS 15, non-toxic, other - frail, elderly, chronically ill, contracted, non-verbal, Chronically Ill HEENT: normocephalic, atraumatic, bilateral eye normal inspection, bilateral eye PERRL Respiratory: chest non-tender, lungs clear, normal breath sounds, no respiratory distress, no retraction, no accessory muscle use, speaking full sentences Cardiovascular : no edema, tachycardia, systolic murmur, irregularly irregular Gastrointestinal: normal bowel sounds, non tender, soft, non-distended, no guarding, no rebound, other - colostomy bag in place. Musculoskeletal: back normal, gait/station normal, normal range of motion, non- tender Neurologic: alert, other - non-focal. Contracted, non-verbal Skin: no rash, warm/dry, well hydrated, other - Multiple DU Microbiology Date/Time Source Procedure Growth Status 03/07/18 18:00 Blood Blood Culture - Preliminary NO GROWTH AFTER 48 HOURS Resulted 03/07/18 17:45 Blood Blood Culture - Preliminary NO GROWTH AFTER 48 HOURS Resulted Laboratory Tests Test 03/09/18 15:30 03/10/18 08:10 Vancomycin Level Trough 5.6 ug/mL (5.0-12.0) White Blood Count 9.8 K/UL (4.8-10.8) Red Blood Count 3.80 M/UL (4.20-5.40) L Hemoglobin 11.1 G/DL (12.0-16.0) L Hematocrit 34.4 % (37.0-47.0) L Mean Corpuscular Volume 90 FL (80-99) Mean Corpuscular Hemoglobin 29.3 PG (27.0-31.0) Mean Corpuscular Hemoglobin Concent 32.4 G/DL (32.0-36.0) Red Cell Distribution Width 12.8 % (11.6-14.8) Platelet Count 167 K/UL (150-450) Mean Platelet Volume 6.0 FL (6.5-10.1) L Neutrophils (%) (Auto) 80.1 % (45.0-75.0) H Lymphocytes (%) (Auto) 11.5 % (20.0-45.0) L Monocytes (%) (Auto) 7.7 % (1.0-10.0) Eosinophils (%) (Auto) 0.2 % (0.0-3.0) Basophils (%) (Auto) 0.5 % (0.0-2.0) Sodium Level 139 MMOL/L (136-145) Potassium Level 4.5 MMOL/L (3.5-5.1) Chloride Level 108 MMOL/L (98-107) H Carbon Dioxide Level 26 MMOL/L (21-32) Anion Gap 5 mmol/L (5-15) Blood Urea Nitrogen 12 mg/dL (7-18) Creatinine 0.6 MG/DL (0.55-1.30) Estimat Glomerular Filtration Rate mL/min (>60) Glucose Level 153 MG/DL (74-106) H Calcium Level 8.8 MG/DL (8.5-10.1) Magnesium Level 1.6 MG/DL (1.8-2.4) L Iron Level 29 ug/dL (50-175) L Total Iron Binding Capacity 86 ug/dL (250-450) L Percent Iron Saturation 34 % (15-50) Unsaturated Iron Binding 57 ug/dL (112-346) L Current Medications Medications (Trade) Dose Ordered Sig/Cele Route PRN Reason Start Time Stop Time Status Last Admin Dose Admin Acetaminophen (Tylenol) 650 mg Q4H PRN ORAL fever (temp>100.5F) 03/07/18 17:11 04/05/18 17:10 Al Hydroxide/Mg Hydroxide (Mylanta II) 30 ml Q6H PRN ORAL dyspepsia 03/07/18 17:11 04/05/18 17:10 Albuterol/ Ipratropium (Albuterol/ Ipratropium) 3 ml Q4H PRN HHN Shortness of Breath 03/07/18 17:11 03/11/18 17:10 Atenolol (Tenormin) 25 mg DAILY ORAL 03/08/18 09:00 04/06/18 08:59 03/09/18 09:01 Cefepime HCl 2 gm/ Dextrose 110 ml @ 220 mls/hr DAILY IV 03/08/18 09:00 03/13/18 14:59 03/10/18 09:25 Dextrose/ Electrolytes 1,000 ml @ 50 mls/hr Q20H IV 03/10/18 17:11 04/09/18 17:10 03/09/18 23:00 Gabapentin (Neurontin) 300 mg THREE TIMES A DAY ORAL 03/07/18 18:00 04/05/18 17:59 03/10/18 09:25 Heparin Sodium (Porcine) (Heparin 5000 units/ml) 5,000 units EVERY 12 HOURS SUBQ 03/07/18 21:00 04/05/18 20:59 03/10/18 09:26 Nitroglycerin (Ntg) 0.4 mg Q5M PRN SL Prn Chest Pain 03/07/18 17:11 04/05/18 17:10 Olanzapine (ZyPREXA) 2.5 mg Q6H PRN ORAL agitation 03/08/18 00:00 04/07/18 00:00 Ondansetron HCl (Zofran) 4 mg Q6H PRN IVP Nausea & Vomiting 03/07/18 17:11 04/05/18 17:10 Polyethylene Glycol (Miralax) 17 gm DAILYPRN PRN ORAL Constipation 03/07/18 17:12 04/06/18 17:11 Promethazine HCl/ Codeine (Phenergan with Codeine) 5 ml Q4H PRN ORAL For Cough 03/07/18 17:12 04/05/18 17:11 Tamsulosin HCl (Flomax) 0.4 mg BEDTIME ORAL 03/07/18 21:00 04/05/18 20:59 03/09/18 22:38 Temazepam (Restoril) 15 mg HSPRN PRN ORAL Insomnia 03/07/18 17:12 03/14/18 17:11 03/09/18 22:39 Vancomycin HCl (Vanco rx to dose) 1 ea DAILY PRN MISC Per rx protocol 03/08/18 09:00 04/05/18 13:29 Vancomycin HCl 500 mg/Dextrose 110 ml @ 110 mls/hr Q12H IVPB 03/09/18 17:00 03/14/18 16:59 03/10/18 05:16 Sussy Daniel M.D. Mar 10, 2018 11:24
--- NOTE | 2018-03-10 11:45 | Diagnostic Imaging Report ---
Indication: Post nasogastric tube placement Technique: Supine view of the upper abdomen Comparison: 03/07/2018 Findings: There is a weighted nasogastric feeding tube, position similar to previous study, projected at the level gastric body. Bowel gas pattern is grossly unremarkable. Other findings are unchanged Impression: Satisfactory nasogastric intubation This agrees with the preliminary interpretation provided overnight by [facility] teleradiology service.
[2018-03-10 12:00] VITALS: BP 97/54
--- NOTE | 2018-03-10 15:16 | Pulmonology Progress Note ---
Assessment/Plan Assessment/Plan Pulmonary Consultation Note HPI This patient is brought in by EMS. Per report, the patient has had failure to thrive and generalized weakness. They also note hematuria. The patient is nonverbal and unable to articulate any complaints. She has also stopped eating per the medical record and nursing notes. There is no other history of present illness available or documented. Allergies: No Known Allergies Past Medical History: HTN, AFib, dementia, HL psych hx, other - contractures, DU, muscle wasting, previous G tube Social History: Denies: smoking, alcohol use, drug use All Other Systems: limited Physical Exam Vital Signs Noted General Appearance: no apparent distress, alert, GCS 15, non-toxic, other - frail, elderly, chronically ill, contracted, non-verbal, Chronically Ill Head: normocephalic, atraumatic Eyes: bilateral eye normal inspection, bilateral eye PERRL ENT: no angioedema Neck: other - flexed. contracted. Respiratory: chest non-tender, lungs clear, normal breath sounds, no respiratory distress, no retraction, no accessory muscle use, speaking full sentences Cardiovascular #1: no edema, tachycardia, systolic murmur, irregularly irregular Gastrointestinal: normal bowel sounds, non tender, soft, non-distended, no guarding, no rebound, other - colostomy bag in place. Rectal: deferred Musculoskeletal: back normal, gait/station normal, normal range of motion, non- tender Neurologic: alert, other - non-focal. Contracted, non-verbal Psychiatric: mood/affect normal Skin: no rash, warm/dry, well hydrated, other - Multiple DU Impression: Pyelonephritis Sepsis Pneumonia Hypernatremia Lactic acid acidosis HTN, AFib, Dementia, HL psych hx, other - contractures, DU, muscle wasting, previous G tube Plan IV Antibiotics O2 PRN PPX IVF PTAmeds Aspiration precautions Laboratory Tests Test 03/06/18 10:12 03/06/18 10:25 03/06/18 10:47 White Blood Count 15.7 K/UL (4.8-10.8) H Red Blood Count 4.60 M/UL (4.20-5.40) Hemoglobin 13.3 G/DL (12.0-16.0) Hematocrit 42.1 % (37.0-47.0) Mean Corpuscular Volume 91 FL (80-99) Mean Corpuscular Hemoglobin 28.9 PG (27.0-31.0) Mean Corpuscular Hemoglobin Concent 31.7 G/DL (32.0-36.0) L Red Cell Distribution Width 13.3 % (11.6-14.8) Platelet Count 246 K/UL (150-450) Mean Platelet Volume 5.4 FL (6.5-10.1) L Neutrophils (%) (Auto) 77.5 % (45.0-75.0) H Lymphocytes (%) (Auto) 13.9 % (20.0-45.0) L Monocytes (%) (Auto) 8.1 % (1.0-10.0) Eosinophils (%) (Auto) 0.1 % (0.0-3.0) Basophils (%) (Auto) 0.4 % (0.0-2.0) Prothrombin Time 12.4 SEC (9.30-11.50) H Prothrombin Time INR 1.2 (0.9-1.1) H PTT 29 SEC (23-33) Sodium Level 147 MMOL/L (136-145) H Potassium Level 4.8 MMOL/L (3.5-5.1) Chloride Level 108 MMOL/L (98-107) H Carbon Dioxide Level 30 MMOL/L (21-32) Anion Gap 9 mmol/L (5-15) Blood Urea Nitrogen 18 mg/dL (7-18) Creatinine 0.8 MG/DL (0.55-1.30) Estimate Glomerular Filtration Rate mL/min (>60) Glucose Level 114 MG/DL (74-106) H Lactic Acid Level 3.60 mmol/L (0.4-2.0) H Calcium Level 9.1 MG/DL (8.5-10.1) Phosphorus Level 3.2 MG/DL (2.5-4.9) Magnesium Level 1.9 MG/DL (1.8-2.4) Total Bilirubin 0.6 MG/DL (0.2-1.0) Aspartate Amino Transferase (AST) 27 U/L (15-37) Alanine Aminotransferase (ALT) 16 U/L (12-78) Alkaline Phosphatase 128 U/L (46-116) H Total Creatine Kinase 59 U/L (26-308) Creatine Kinase MB 1.6 NG/ML (0.0-3.6) Creatine Kinase MB Relative Index 2.7 Total Protein 6.7 G/DL (6.4-8.2) Albumin 2.1 G/DL (3.4-5.0) L Globulin 4.6 g/dL Albumin/Globulin Ratio 0.5 (1.0-2.7) L Troponin I 0.033 ng/mL (0.000-0.056) Urine Color Yellow Urine Appearance Cloudy Urine pH 6 (4.5-8.0) Urine Specific [place] 1.020 (1.005-1.035) Urine Protein 4+ (NEGATIVE) H Urine Glucose (UA) Negative (NEGATIVE) Urine Ketones 3+ (NEGATIVE) H Urine Blood 5+ (NEGATIVE) H Urine Nitrite Negative (NEGATIVE) Urine Bilirubin 1+ (NEGATIVE) H Urine Ictotest Negative (NEGATIVE) Urine Urobilinogen Normal MG/DL (0.0-1.0) Urine Leukocyte Esterase 3+ (NEGATIVE) H Urine RBC 30-40 /HPF (0 - 2) H Urine WBC Tntc /HPF (0 - 2) H Urine Squamous Epithelial Cells Few /LPF (NONE/OCC) Urine Bacteria Few /HPF (NONE) Microbiology Date/Time Source Procedure Growth Status 03/06/18 10:12 Nasal Nares Influenza Types A,B Antigen (NGA) - Final Complete EKG Diagnostic Results Rate: tachycardiac Rhythm: other - S.tachycardia ST Segments: no acute changes Chest X-Ray Diagnostic Results Chest X-Ray Diagnostic Results : Chest X-Ray Ordered: Yes # of Views/Limited/Complete: 1 View Indication: Other EP Interpretation: No Interpretation: other - Questionable opacity RUL Impression: Other - See above Electronically Signed by: Halima Chery DO Subjective ROS Limited/Unobtainable: No Allergies: Coded Allergies: No Known Allergies (Unverified , 03/06/18) Objective Last 24 Hour Vital Signs Date Time Temp Pulse Resp B/P (MAP) Pulse Ox O2 Delivery O2 Flow Rate FiO2 03/10/18 12:00 99.5 69 19 97/54 (68) 97 03/10/18 11:46 96 03/10/18 09:00 86 98/53 03/10/18 08:00 98.8 86 20 98/53 (68) 100 03/10/18 08:00 Nasal Cannula 2.0 03/10/18 07:48 87 03/10/18 07:16 99 Nasal Cannula 2.0 28 03/10/18 07:16 Nasal Cannula 2.0 28 03/10/18 04:00 Nasal Cannula 2.0 03/10/18 04:00 98.0 98 24 102/56 (71) 99 03/10/18 04:00 89 03/10/18 00:00 97.7 95 20 115/59 (77) 99 03/10/18 00:00 Nasal Cannula 2.0 03/10/18 00:00 90 03/09/18 20:00 Nasal Cannula 2.0 03/09/18 20:00 98.1 60 20 106/58 (74) 94 03/09/18 20:00 71 03/09/18 19:47 Nasal Cannula 2.0 28 03/09/18 19:46 99 Nasal Cannula 2.0 28 03/09/18 16:00 98.0 92 19 107/54 (71) 95 03/09/18 16:00 Nasal Cannula 2.0 03/09/18 16:00 61 Intake and Output 03/09/18 03/10/18 18:59 06:59 Intake Total 1125 ml 875 ml Output Total 130 ml 350 ml Balance 995 ml 525 ml Intake Free Water 80 ml IV Total 1045 ml 550 ml Tube Feeding 325 ml Output Urine Total 130 ml 350 ml Microbiology Date/Time Source Procedure Growth Status 03/07/18 18:00 Blood Blood Culture - Preliminary NO GROWTH AFTER 48 HOURS Resulted 03/07/18 17:45 Blood Blood Culture - Preliminary NO GROWTH AFTER 48 HOURS Resulted Laboratory Tests 03/09/18 15:30: Vancomycin Level Trough 5.6 03/10/18 08:10: White Blood Count 9.8, Red Blood Count 3.80L, Hemoglobin 11.1L, Hematocrit 34.4L , Mean Corpuscular Volume 90, Mean Corpuscular Hemoglobin 29.3, Mean Corpuscular Hemoglobin Concent 32.4, Red Cell Distribution Width 12.8, Platelet Count 167, Mean Platelet Volume 6.0L, Neutrophils (%) (Auto) 80.1H, Lymphocytes (%) (Auto) 11.5L, Monocytes (%) (Auto) 7.7, Eosinophils (%) (Auto) 0.2, Basophils (%) (Auto) 0.5, Sodium Level 139, Potassium Level 4.5, Chloride Level 108H, Carbon Dioxide Level 26, Anion Gap 5, Blood Urea Nitrogen 12, Creatinine 0.6, Estimat Glomerular Filtration Rate , Glucose Level 153H, Calcium Level 8.8 , Magnesium Level 1.6L, Iron Level 29L, Total Iron Binding Capacity 86L, Percent Iron Saturation 34, Unsaturated Iron Binding 57L Current Medications Medications (Trade) Dose Ordered Sig/Cele Route PRN Reason Start Time Stop Time Status Last Admin Dose Admin Acetaminophen (Tylenol) 650 mg Q4H PRN ORAL fever (temp>100.5F) 03/07/18 17:11 04/05/18 17:10 Al Hydroxide/Mg Hydroxide (Mylanta II) 30 ml Q6H PRN ORAL dyspepsia 03/07/18 17:11 04/05/18 17:10 Albuterol/ Ipratropium (Albuterol/ Ipratropium) 3 ml Q4H PRN HHN Shortness of Breath 03/07/18 17:11 03/11/18 17:10 Atenolol (Tenormin) 25 mg DAILY ORAL 03/08/18 09:00 04/06/18 08:59 03/09/18 09:01 Cefepime HCl 2 gm/ Dextrose 110 ml @ 220 mls/hr DAILY IV 03/08/18 09:00 03/13/18 14:59 03/10/18 09:25 Dextrose/ Electrolytes 1,000 ml @ 50 mls/hr Q20H IV 03/10/18 17:11 04/09/18 17:10 03/09/18 23:00 Gabapentin (Neurontin) 300 mg THREE TIMES A DAY ORAL 03/07/18 18:00 04/05/18 17:59 03/10/18 12:54 Heparin Sodium (Porcine) (Heparin 5000 units/ml) 5,000 units EVERY 12 HOURS SUBQ 03/07/18 21:00 04/05/18 20:59 03/10/18 09:26 Nitroglycerin (Ntg) 0.4 mg Q5M PRN SL Prn Chest Pain 03/07/18 17:11 04/05/18 17:10 Olanzapine (ZyPREXA) 2.5 mg Q6H PRN ORAL agitation 03/08/18 00:00 04/07/18 00:00 Ondansetron HCl (Zofran) 4 mg Q6H PRN IVP Nausea & Vomiting 03/07/18 17:11 04/05/18 17:10 Polyethylene Glycol (Miralax) 17 gm DAILYPRN PRN ORAL Constipation 03/07/18 17:12 04/06/18 17:11 Promethazine HCl/ Codeine (Phenergan with Codeine) 5 ml Q4H PRN ORAL For Cough 03/07/18 17:12 04/05/18 17:11 Tamsulosin HCl (Flomax) 0.4 mg BEDTIME ORAL 03/07/18 21:00 04/05/18 20:59 03/09/18 22:38 Temazepam (Restoril) 15 mg HSPRN PRN ORAL Insomnia 03/07/18 17:12 03/14/18 17:11 03/09/18 22:39 Vancomycin HCl (Vanco rx to dose) 1 ea DAILY PRN MISC Per rx protocol 03/08/18 09:00 04/05/18 13:29 Vancomycin HCl 500 mg/Dextrose 110 ml @ 110 mls/hr Q12H IVPB 03/09/18 17:00 03/14/18 16:59 03/10/18 05:16 Pacheco Baez MD Mar 10, 2018 15:16
[2018-03-10 16:00] VITALS: BP 97/50
--- NOTE | 2018-03-10 17:24 | Internal Med Progress Note ---
Subjective Physician Name Davian Scott Attending Physician Davian Scott MD Current Medications Medications (Trade) Dose Ordered Sig/Cele Route PRN Reason Start Time Stop Time Status Last Admin Dose Admin Acetaminophen (Tylenol) 650 mg Q4H PRN ORAL fever (temp>100.5F) 03/07/18 17:11 04/05/18 17:10 Al Hydroxide/Mg Hydroxide (Mylanta II) 30 ml Q6H PRN ORAL dyspepsia 03/07/18 17:11 04/05/18 17:10 Albuterol/ Ipratropium (Albuterol/ Ipratropium) 3 ml Q4H PRN HHN Shortness of Breath 03/07/18 17:11 03/11/18 17:10 Atenolol (Tenormin) 25 mg DAILY ORAL 03/08/18 09:00 04/06/18 08:59 03/09/18 09:01 Cefepime HCl 2 gm/ Dextrose 110 ml @ 220 mls/hr DAILY IV 03/08/18 09:00 03/13/18 14:59 03/10/18 09:25 Dextrose/ Electrolytes 1,000 ml @ 50 mls/hr Q20H IV 03/10/18 17:11 04/09/18 17:10 03/09/18 23:00 Gabapentin (Neurontin) 300 mg THREE TIMES A DAY ORAL 03/07/18 18:00 04/05/18 17:59 03/10/18 12:54 Heparin Sodium (Porcine) (Heparin 5000 units/ml) 5,000 units EVERY 12 HOURS SUBQ 03/07/18 21:00 04/05/18 20:59 03/10/18 09:26 Nitroglycerin (Ntg) 0.4 mg Q5M PRN SL Prn Chest Pain 03/07/18 17:11 04/05/18 17:10 Olanzapine (ZyPREXA) 2.5 mg Q6H PRN ORAL agitation 03/08/18 00:00 04/07/18 00:00 Ondansetron HCl (Zofran) 4 mg Q6H PRN IVP Nausea & Vomiting 03/07/18 17:11 04/05/18 17:10 Polyethylene Glycol (Miralax) 17 gm DAILYPRN PRN ORAL Constipation 03/07/18 17:12 1/20/19 17:11 Promethazine HCl/ Codeine (Phenergan with Codeine) 5 ml Q4H PRN ORAL For Cough 03/07/18 17:12 04/05/18 17:11 Tamsulosin HCl (Flomax) 0.4 mg BEDTIME ORAL 03/07/18 21:00 04/05/18 20:59 03/09/18 22:38 Temazepam (Restoril) 15 mg HSPRN PRN ORAL Insomnia 03/07/18 17:12 03/14/18 17:11 03/09/18 22:39 Vancomycin HCl (Vanco rx to dose) 1 ea DAILY PRN MISC Per rx protocol 03/08/18 09:00 04/05/18 13:29 Vancomycin HCl 500 mg/Dextrose 110 ml @ 110 mls/hr Q12H IVPB 03/09/18 17:00 03/14/18 16:59 03/10/18 05:16 Allergies: Coded Allergies: No Known Allergies (Unverified , 03/06/18) Subjective awake, responsive, open eyes, not verbal, NAD, Mg 1.6. Objective Last Vital Signs Date Time Temp Pulse Resp B/P (MAP) Pulse Ox O2 Delivery O2 Flow Rate FiO2 03/10/18 16:05 99 03/10/18 12:00 99.5 19 97/54 (68) 97 03/10/18 12:00 Nasal Cannula 2.0 03/10/18 07:16 28 Laboratory Tests Test 03/10/18 08:10 White Blood Count 9.8 K/UL (4.8-10.8) Red Blood Count 3.80 M/UL (4.20-5.40) L Hemoglobin 11.1 G/DL (12.0-16.0) L Hematocrit 34.4 % (37.0-47.0) L Mean Corpuscular Volume 90 FL (80-99) Mean Corpuscular Hemoglobin 29.3 PG (27.0-31.0) Mean Corpuscular Hemoglobin Concent 32.4 G/DL (32.0-36.0) Red Cell Distribution Width 12.8 % (11.6-14.8) Platelet Count 167 K/UL (150-450) Mean Platelet Volume 6.0 FL (6.5-10.1) L Neutrophils (%) (Auto) 80.1 % (45.0-75.0) H Lymphocytes (%) (Auto) 11.5 % (20.0-45.0) L Monocytes (%) (Auto) 7.7 % (1.0-10.0) Eosinophils (%) (Auto) 0.2 % (0.0-3.0) Basophils (%) (Auto) 0.5 % (0.0-2.0) Sodium Level 139 MMOL/L (136-145) Potassium Level 4.5 MMOL/L (3.5-5.1) Chloride Level 108 MMOL/L (98-107) H Carbon Dioxide Level 26 MMOL/L (21-32) Anion Gap 5 mmol/L (5-15) Blood Urea Nitrogen 12 mg/dL (7-18) Creatinine 0.6 MG/DL (0.55-1.30) Estimat Glomerular Filtration Rate mL/min (>60) Glucose Level 153 MG/DL (74-106) H Calcium Level 8.8 MG/DL (8.5-10.1) Magnesium Level 1.6 MG/DL (1.8-2.4) L Iron Level 29 ug/dL (50-175) L Total Iron Binding Capacity 86 ug/dL (250-450) L Percent Iron Saturation 34 % (15-50) Unsaturated Iron Binding 57 ug/dL (112-346) L Microbiology Date/Time Source Procedure Growth Status 03/07/18 18:00 Blood Blood Culture - Preliminary NO GROWTH AFTER 48 HOURS Resulted 03/07/18 17:45 Blood Blood Culture - Preliminary NO GROWTH AFTER 48 HOURS Resulted Intake and Output 03/09/18 03/10/18 19:00 07:00 Intake Total 1210 ml 790 ml Output Total 130 ml 350 ml Balance 1080 ml 440 ml Intake Free Water 80 ml IV Total 1120 ml 475 ml Tube Feeding 10 ml 315 ml Output Urine Total 130 ml 350 ml Objective General: No acute distress, awake and open eyes HEENT: NCAT, sclera anicteric, PERRL, NG Tube Neck: Supple, no significant jugular venous distention, Lungs: fair inspiratory effort, Decrease air at bases, no Wheeze or Rales. Heart: Regular rate and rhythm, normal S1/S2, no murmur, Abdomen: soft, nontender, nondistended. Normoactive bowel sounds. Extremities: No Cyanosis , clubbing or edema. Neuro: A&O x 1, Limited due to patient status, Functional Quadriplegia Skin: warm, no rashes, Assessment/Plan Assessment/Plan Sepsis due to UTI Bacteremia Probability early PNA Functional Quadriplegia. HTN Afib dysphagia HLD Dementia All extremities contracture Multiple Decubitus Ulcer Plan: Abx: Cefepime and Vanco IV Tube feeding Mg IV Full code heparin SQ F/U with labs and cultures. For possible PEG soon. Davian Scott MD Mar 10, 2018 17:23
[2018-03-10] MEDS: D5 1/2NS w/KCL 10meq 1,000 ML IV SCH (18:02)
--- NOTE | 2018-03-10 18:40 | General Progress Note ---
Assessment/Plan Problem List: (1) encephalopathy due to metabolic factor Status: unchanged Assessment/Plan zyprexa prn Subjective Allergies: Coded Allergies: No Known Allergies (Unverified , 03/06/18) Subjective confused agitated Objective Last 24 Hour Vital Signs Date Time Temp Pulse Resp B/P (MAP) Pulse Ox O2 Delivery O2 Flow Rate FiO2 03/10/18 16:05 99 03/10/18 12:00 99.5 69 19 97/54 (68) 97 03/10/18 12:00 Nasal Cannula 2.0 03/10/18 11:46 96 03/10/18 09:00 86 98/53 03/10/18 08:00 98.8 86 20 98/53 (68) 100 03/10/18 08:00 Nasal Cannula 2.0 03/10/18 07:48 87 03/10/18 07:16 99 Nasal Cannula 2.0 28 03/10/18 07:16 Nasal Cannula 2.0 28 03/10/18 04:00 Nasal Cannula 2.0 03/10/18 04:00 98.0 98 24 102/56 (71) 99 03/10/18 04:00 89 03/10/18 00:00 97.7 95 20 115/59 (77) 99 03/10/18 00:00 Nasal Cannula 2.0 03/10/18 00:00 90 03/09/18 20:00 Nasal Cannula 2.0 03/09/18 20:00 98.1 60 20 106/58 (74) 94 03/09/18 20:00 71 03/09/18 19:47 Nasal Cannula 2.0 28 03/09/18 19:46 99 Nasal Cannula 2.0 28 Intake and Output 03/09/18 03/10/18 19:00 07:00 Intake Total 1210 ml 790 ml Output Total 130 ml 350 ml Balance 1080 ml 440 ml Intake Free Water 80 ml IV Total 1120 ml 475 ml Tube Feeding 10 ml 315 ml Output Urine Total 130 ml 350 ml Laboratory Tests 03/10/18 08:10: White Blood Count 9.8, Red Blood Count 3.80L, Hemoglobin 11.1L, Hematocrit 34.4L , Mean Corpuscular Volume 90, Mean Corpuscular Hemoglobin 29.3, Mean Corpuscular Hemoglobin Concent 32.4, Red Cell Distribution Width 12.8, Platelet Count 167, Mean Platelet Volume 6.0L, Neutrophils (%) (Auto) 80.1H, Lymphocytes (%) (Auto) 11.5L, Monocytes (%) (Auto) 7.7, Eosinophils (%) (Auto) 0.2, Basophils (%) (Auto) 0.5, Sodium Level 139, Potassium Level 4.5, Chloride Level 108H, Carbon Dioxide Level 26, Anion Gap 5, Blood Urea Nitrogen 12, Creatinine 0.6, Estimat Glomerular Filtration Rate , Glucose Level 153H, Calcium Level 8.8 , Magnesium Level 1.6L, Iron Level 29L, Total Iron Binding Capacity 86L, Percent Iron Saturation 34, Unsaturated Iron Binding 57L Height (Feet): 5 Height (Inches): 3.00 Weight (Pounds): 100 General Appearance: confused, agitated Bj Martinez MD Mar 10, 2018 18:40
[2018-03-10 20:00] VITALS: BP 106/50
[2018-03-10] MEDS: Tamsulosin 0.4mg cap ORAL SCH (21:55)
[2018-03-11] VITALS: BP 101/51
[2018-03-11 04:00] VITALS: BP 122/68
[2018-03-11 05:12] LABS: BASOPHILS % (AUTO) 0.6 % (0.0-2.0); EOSINOPHILS % (AUTO) 0.7 % (0.0-3.0); HEMATOCRIT 27.6 % (37.0-47.0); HEMOGLOBIN 9.2 G/DL (12.0-16.0); LYMPHOCYTES % (AUTO) 16.8 % (20.0-45.0); MEAN CORPUSCULAR VOLUME 92 FL (80-99); MONOCYTES % (AUTO) 8.5 % (1.0-10.0); NEUTROPHILS % (AUTO) 73.4 % (45.0-75.0); PLATELET COUNT 134 K/UL (150-450); RED BLOOD COUNT 3.01 M/UL (4.20-5.40); RED CELL DISTRIBUTION WIDTH 13.5 % (11.6-14.8); WHITE BLOOD COUNT 8.4 K/UL (4.8-10.8)
[2018-03-11 05:41] LABS: ANION GAP 7 mmol/L (5-15); BLOOD UREA NITROGEN 12 mg/dL (7-18); CALCIUM 8.5 MG/DL (8.5-10.1); CARBON DIOXIDE 25 MMOL/L (21-32); CHLORIDE 107 MMOL/L (98-107); CREATININE 0.5 MG/DL (0.55-1.30); POTASSIUM 4.7 MMOL/L (3.5-5.1); SODIUM 139 MMOL/L (136-145)
[2018-03-11] MEDS: Vancomycin 500 MG in D5W 110 ML IVPB SCH ×2 (07:03→16:40)
[2018-03-11 08:00] VITALS: BP 119/66
[2018-03-11] MEDS: Cefepime HCl 2 GM in D5W 110 ML IV SCH (08:49)
[2018-03-11] MEDS: Heparin 5000 units/ml inj SUBQ SCH ×2 (08:52→21:52)
[2018-03-11] MEDS: Atenolol 25mg tab ORAL SCH (08:52)
--- NOTE | 2018-03-11 10:54 | General Progress Note ---
Assessment/Plan Problem List: (1) Severe malnutrition ICD Codes: E43 - Unspecified severe protein-calorie malnutrition SNOMED: 84249611 (2) Encounter for PEG (percutaneous endoscopic gastrostomy) ICD Codes: Z43.1 - Encounter for attention to gastrostomy SNOMED: 622560821, 314889768 (3) Dehydration ICD Codes: E86.0 - Dehydration SNOMED: 05529881 (4) Dysphasia ICD Codes: R47.02 - Dysphasia SNOMED: 16327839 (5) Atrial fibrillation with RVR ICD Codes: I48.91 - Unspecified atrial fibrillation SNOMED: 000812619135090 Assessment/Plan NGTF rn social work consult appreciated pending consent drop in H&H without any obvious bleeding fu CBC anemia work up Subjective ROS Limited/Unobtainable: No Allergies: Coded Allergies: No Known Allergies (Unverified , 03/06/18) Objective Last 24 Hour Vital Signs Date Time Temp Pulse Resp B/P (MAP) Pulse Ox O2 Delivery O2 Flow Rate FiO2 03/11/18 08:52 114 114/60 03/11/18 08:00 98.6 114 19 119/66 (83) 96 03/11/18 08:00 Nasal Cannula 2.0 03/11/18 07:10 Nasal Cannula 2.0 28 03/11/18 07:10 98 Nasal Cannula 2.0 28 03/11/18 04:00 90 03/11/18 04:00 Nasal Cannula 2.0 03/11/18 04:00 98.0 94 20 122/68 (86) 100 03/11/18 00:00 98.6 94 20 101/51 (68) 100 03/11/18 00:00 93 03/11/18 00:00 Nasal Cannula 2.0 03/10/18 20:00 99.1 94 20 106/50 (68) 100 03/10/18 20:00 Nasal Cannula 2.0 03/10/18 18:52 Nasal Cannula 2.0 28 03/10/18 18:52 100 Nasal Cannula 2.0 28 03/10/18 16:05 99 03/10/18 16:00 99.2 94 19 97/50 (66) 98 03/10/18 16:00 Nasal Cannula 2.0 03/10/18 12:00 99.5 69 19 97/54 (68) 97 03/10/18 12:00 Nasal Cannula 2.0 03/10/18 11:46 96 Intake and Output 03/10/18 03/11/18 19:00 07:00 Intake Total 1320 ml 1670 ml Output Total 175 ml 350 ml Balance 1145 ml 1320 ml Intake Free Water 350 ml IV Total 710 ml 660 ml Tube Feeding 610 ml 660 ml Output Urine Total 175 ml 350 ml Laboratory Tests 03/11/18 04:00: White Blood Count 8.4, Red Blood Count 3.01L, Hemoglobin 9.2L, Hematocrit 27.6L , Mean Corpuscular Volume 92, Mean Corpuscular Hemoglobin 30.5, Mean Corpuscular Hemoglobin Concent 33.4, Red Cell Distribution Width 13.5, Platelet Count 134L, Mean Platelet Volume 5.4L, Neutrophils (%) (Auto) 73.4, Lymphocytes (%) (Auto) 16.8L, Monocytes (%) (Auto) 8.5, Eosinophils (%) (Auto) 0.7, Basophils (%) (Auto) 0.6, Sodium Level 139, Potassium Level 4.7, Chloride Level 107, Carbon Dioxide Level 25, Anion Gap 7, Blood Urea Nitrogen 12, Creatinine 0.5L, Estimat Glomerular Filtration Rate , Glucose Level 139H, Calcium Level 8.5 , Vancomycin Level Trough 13.1H Height (Feet): 5 Height (Inches): 3.00 Weight (Pounds): 100 General Appearance: no apparent distress EENT: normal ENT inspection Neck: supple Cardiovascular: normal rate Respiratory/Chest: decreased breath sounds Abdomen: normal bowel sounds, non tender, soft Extremities: non-tender Ernesto Velez MD Mar 11, 2018 10:54
[2018-03-11 12:00] VITALS: BP 125/65
--- NOTE | 2018-03-11 12:47 | Internal Med Progress Note ---
Subjective Physician Name Davian Scott Attending Physician Davian Scott MD Current Medications Medications (Trade) Dose Ordered Sig/Cele Route PRN Reason Start Time Stop Time Status Last Admin Dose Admin Acetaminophen (Tylenol) 650 mg Q4H PRN ORAL fever (temp>100.5F) 03/07/18 17:11 04/05/18 17:10 Al Hydroxide/Mg Hydroxide (Mylanta II) 30 ml Q6H PRN ORAL dyspepsia 03/07/18 17:11 04/05/18 17:10 Albuterol/ Ipratropium (Albuterol/ Ipratropium) 3 ml Q4H PRN HHN Shortness of Breath 03/07/18 17:11 03/11/18 17:10 Atenolol (Tenormin) 25 mg DAILY ORAL 03/08/18 09:00 04/06/18 08:59 03/09/18 09:01 Cefepime HCl 2 gm/ Dextrose 110 ml @ 220 mls/hr DAILY IV 03/08/18 09:00 03/13/18 14:59 03/11/18 08:49 Dextrose/ Electrolytes 1,000 ml @ 50 mls/hr Q20H IV 03/10/18 17:11 04/09/18 17:10 03/10/18 18:02 Gabapentin (Neurontin) 300 mg THREE TIMES A DAY ORAL 03/07/18 18:00 04/05/18 17:59 03/11/18 08:49 Heparin Sodium (Porcine) (Heparin 5000 units/ml) 5,000 units EVERY 12 HOURS SUBQ 03/07/18 21:00 04/05/18 20:59 03/11/18 08:52 Nitroglycerin (Ntg) 0.4 mg Q5M PRN SL Prn Chest Pain 03/07/18 17:11 04/05/18 17:10 Olanzapine (ZyPREXA) 2.5 mg Q6H PRN ORAL agitation 03/08/18 00:00 04/07/18 00:00 Ondansetron HCl (Zofran) 4 mg Q6H PRN IVP Nausea & Vomiting 03/07/18 17:11 04/05/18 17:10 Polyethylene Glycol (Miralax) 17 gm DAILYPRN PRN ORAL Constipation 03/07/18 17:12 1/20/19 17:11 Promethazine HCl/ Codeine (Phenergan with Codeine) 5 ml Q4H PRN ORAL For Cough 03/07/18 17:12 04/05/18 17:11 Tamsulosin HCl (Flomax) 0.4 mg BEDTIME ORAL 03/07/18 21:00 04/05/18 20:59 03/10/18 21:55 Temazepam (Restoril) 15 mg HSPRN PRN ORAL Insomnia 03/07/18 17:12 03/14/18 17:11 03/09/18 22:39 Vancomycin HCl (Vanco rx to dose) 1 ea DAILY PRN MISC Per rx protocol 03/08/18 09:00 04/05/18 13:29 Vancomycin HCl 500 mg/Dextrose 110 ml @ 110 mls/hr Q12H IVPB 03/09/18 17:00 03/14/18 16:59 03/11/18 07:03 Allergies: Coded Allergies: No Known Allergies (Unverified , 03/06/18) Subjective awake, more responsive, open eyes, not verbal, NAD. Objective Last Vital Signs Date Time Temp Pulse Resp B/P (MAP) Pulse Ox O2 Delivery O2 Flow Rate FiO2 03/11/18 12:00 Nasal Cannula 2.0 03/11/18 12:00 99.7 119 18 125/65 (85) 98 03/11/18 07:10 28 Laboratory Tests Test 03/11/18 04:00 White Blood Count 8.4 K/UL (4.8-10.8) Red Blood Count 3.01 M/UL (4.20-5.40) L Hemoglobin 9.2 G/DL (12.0-16.0) L Hematocrit 27.6 % (37.0-47.0) L Mean Corpuscular Volume 92 FL (80-99) Mean Corpuscular Hemoglobin 30.5 PG (27.0-31.0) Mean Corpuscular Hemoglobin Concent 33.4 G/DL (32.0-36.0) Red Cell Distribution Width 13.5 % (11.6-14.8) Platelet Count 134 K/UL (150-450) L Mean Platelet Volume 5.4 FL (6.5-10.1) L Neutrophils (%) (Auto) 73.4 % (45.0-75.0) Lymphocytes (%) (Auto) 16.8 % (20.0-45.0) L Monocytes (%) (Auto) 8.5 % (1.0-10.0) Eosinophils (%) (Auto) 0.7 % (0.0-3.0) Basophils (%) (Auto) 0.6 % (0.0-2.0) Sodium Level 139 MMOL/L (136-145) Potassium Level 4.7 MMOL/L (3.5-5.1) Chloride Level 107 MMOL/L (98-107) Carbon Dioxide Level 25 MMOL/L (21-32) Anion Gap 7 mmol/L (5-15) Blood Urea Nitrogen 12 mg/dL (7-18) Creatinine 0.5 MG/DL (0.55-1.30) L Estimat Glomerular Filtration Rate mL/min (>60) Glucose Level 139 MG/DL (74-106) H Calcium Level 8.5 MG/DL (8.5-10.1) Vancomycin Level Trough 13.1 ug/mL (5.0-12.0) H Intake and Output 03/10/18 03/11/18 18:59 06:59 Intake Total 1210 ml 1780 ml Output Total 175 ml 350 ml Balance 1035 ml 1430 ml Intake Free Water 350 ml IV Total 660 ml 710 ml Tube Feeding 550 ml 720 ml Output Urine Total 175 ml 350 ml Objective General: No acute distress, awake and open eyes HEENT: NCAT, sclera anicteric, PERRL, NG Tube Neck: Supple, no significant jugular venous distention, Lungs: fair inspiratory effort, Decrease air at bases, no Wheeze or Rales. Heart: Regular rate and rhythm, normal S1/S2, no murmur, Abdomen: soft, nontender, nondistended. Normoactive bowel sounds. : Saravia cath Extremities: No Cyanosis , clubbing or edema. Neuro: A&O x 1, Limited due to patient status, Functional Quadriplegia Skin: warm, no rashes, Assessment/Plan Assessment/Plan Sepsis due to UTI Bacteremia Probability early PNA Functional Quadriplegia. HTN Afib dysphagia HLD Dementia All extremities contracture Multiple Decubitus Ulcer Plan: Abx: Cefepime and Vanco IV Tube feeding @ 60 cc/hr Full code heparin SQ F/U with labs and cultures. For possible PEG soon. Davian Scott MD Mar 11, 2018 12:47
--- NOTE | 2018-03-11 15:30 | Pulmonology Progress Note ---
Assessment/Plan Assessment/Plan Pulmonary Consultation Note HPI This patient is brought in by EMS. Per report, the patient has had failure to thrive and generalized weakness. They also note hematuria. The patient is nonverbal and unable to articulate any complaints. She has also stopped eating per the medical record and nursing notes. There is no other history of present illness available or documented. Allergies: No Known Allergies Past Medical History: HTN, AFib, dementia, HL psych hx, other - contractures, DU, muscle wasting, previous G tube Social History: Denies: smoking, alcohol use, drug use All Other Systems: limited Physical Exam Vital Signs Noted General Appearance: no apparent distress, alert, GCS 15, non-toxic, other - frail, elderly, chronically ill, contracted, non-verbal, Chronically Ill Head: normocephalic, atraumatic Eyes: bilateral eye normal inspection, bilateral eye PERRL ENT: no angioedema Neck: other - flexed. contracted. Respiratory: chest non-tender, lungs clear, normal breath sounds, no respiratory distress, no retraction, no accessory muscle use, speaking full sentences Cardiovascular #1: no edema, tachycardia, systolic murmur, irregularly irregular Gastrointestinal: normal bowel sounds, non tender, soft, non-distended, no guarding, no rebound, other - colostomy bag in place. Rectal: deferred Musculoskeletal: back normal, gait/station normal, normal range of motion, non- tender Neurologic: alert, other - non-focal. Contracted, non-verbal Psychiatric: mood/affect normal Skin: no rash, warm/dry, well hydrated, other - Multiple DU Impression: Pyelonephritis Sepsis Pneumonia Hypernatremia Lactic acid acidosis HTN, AFib, Dementia, HL psych hx, other - contractures, DU, muscle wasting, previous G tube Plan IV Antibiotics O2 PRN PPX IVF PTAmeds Aspiration precautions Laboratory Tests Test 03/06/18 10:12 03/06/18 10:25 03/06/18 10:47 White Blood Count 15.7 K/UL (4.8-10.8) H Red Blood Count 4.60 M/UL (4.20-5.40) Hemoglobin 13.3 G/DL (12.0-16.0) Hematocrit 42.1 % (37.0-47.0) Mean Corpuscular Volume 91 FL (80-99) Mean Corpuscular Hemoglobin 28.9 PG (27.0-31.0) Mean Corpuscular Hemoglobin Concent 31.7 G/DL (32.0-36.0) L Red Cell Distribution Width 13.3 % (11.6-14.8) Platelet Count 246 K/UL (150-450) Mean Platelet Volume 5.4 FL (6.5-10.1) L Neutrophils (%) (Auto) 77.5 % (45.0-75.0) H Lymphocytes (%) (Auto) 13.9 % (20.0-45.0) L Monocytes (%) (Auto) 8.1 % (1.0-10.0) Eosinophils (%) (Auto) 0.1 % (0.0-3.0) Basophils (%) (Auto) 0.4 % (0.0-2.0) Prothrombin Time 12.4 SEC (9.30-11.50) H Prothrombin Time INR 1.2 (0.9-1.1) H PTT 29 SEC (23-33) Sodium Level 147 MMOL/L (136-145) H Potassium Level 4.8 MMOL/L (3.5-5.1) Chloride Level 108 MMOL/L (98-107) H Carbon Dioxide Level 30 MMOL/L (21-32) Anion Gap 9 mmol/L (5-15) Blood Urea Nitrogen 18 mg/dL (7-18) Creatinine 0.8 MG/DL (0.55-1.30) Estimate Glomerular Filtration Rate mL/min (>60) Glucose Level 114 MG/DL (74-106) H Lactic Acid Level 3.60 mmol/L (0.4-2.0) H Calcium Level 9.1 MG/DL (8.5-10.1) Phosphorus Level 3.2 MG/DL (2.5-4.9) Magnesium Level 1.9 MG/DL (1.8-2.4) Total Bilirubin 0.6 MG/DL (0.2-1.0) Aspartate Amino Transferase (AST) 27 U/L (15-37) Alanine Aminotransferase (ALT) 16 U/L (12-78) Alkaline Phosphatase 128 U/L (46-116) H Total Creatine Kinase 59 U/L (26-308) Creatine Kinase MB 1.6 NG/ML (0.0-3.6) Creatine Kinase MB Relative Index 2.7 Total Protein 6.7 G/DL (6.4-8.2) Albumin 2.1 G/DL (3.4-5.0) L Globulin 4.6 g/dL Albumin/Globulin Ratio 0.5 (1.0-2.7) L Troponin I 0.033 ng/mL (0.000-0.056) Urine Color Yellow Urine Appearance Cloudy Urine pH 6 (4.5-8.0) Urine Specific [place] 1.020 (1.005-1.035) Urine Protein 4+ (NEGATIVE) H Urine Glucose (UA) Negative (NEGATIVE) Urine Ketones 3+ (NEGATIVE) H Urine Blood 5+ (NEGATIVE) H Urine Nitrite Negative (NEGATIVE) Urine Bilirubin 1+ (NEGATIVE) H Urine Ictotest Negative (NEGATIVE) Urine Urobilinogen Normal MG/DL (0.0-1.0) Urine Leukocyte Esterase 3+ (NEGATIVE) H Urine RBC 30-40 /HPF (0 - 2) H Urine WBC Tntc /HPF (0 - 2) H Urine Squamous Epithelial Cells Few /LPF (NONE/OCC) Urine Bacteria Few /HPF (NONE) Microbiology Date/Time Source Procedure Growth Status 03/06/18 10:12 Nasal Nares Influenza Types A,B Antigen (NGA) - Final Complete EKG Diagnostic Results Rate: tachycardiac Rhythm: other - S.tachycardia ST Segments: no acute changes Chest X-Ray Diagnostic Results Chest X-Ray Diagnostic Results : Chest X-Ray Ordered: Yes # of Views/Limited/Complete: 1 View Indication: Other EP Interpretation: No Interpretation: other - Questionable opacity RUL Impression: Other - See above Electronically Signed by: Halima Chery DO Subjective ROS Limited/Unobtainable: No Allergies: Coded Allergies: No Known Allergies (Unverified , 03/06/18) Objective Last 24 Hour Vital Signs Date Time Temp Pulse Resp B/P (MAP) Pulse Ox O2 Delivery O2 Flow Rate FiO2 03/11/18 13:29 98.5 03/11/18 12:00 112 03/11/18 12:00 Nasal Cannula 2.0 03/11/18 12:00 99.7 119 18 125/65 (85) 98 03/11/18 08:52 114 114/60 03/11/18 08:00 98.6 114 19 119/66 (83) 96 03/11/18 08:00 Nasal Cannula 2.0 03/11/18 08:00 115 03/11/18 07:10 Nasal Cannula 2.0 28 03/11/18 07:10 98 Nasal Cannula 2.0 28 03/11/18 04:00 90 03/11/18 04:00 Nasal Cannula 2.0 03/11/18 04:00 98.0 94 20 122/68 (86) 100 03/11/18 00:00 98.6 94 20 101/51 (68) 100 03/11/18 00:00 93 03/11/18 00:00 Nasal Cannula 2.0 03/10/18 20:00 99.1 94 20 106/50 (68) 100 03/10/18 20:00 Nasal Cannula 2.0 03/10/18 18:52 Nasal Cannula 2.0 28 03/10/18 18:52 100 Nasal Cannula 2.0 28 03/10/18 16:05 99 03/10/18 16:00 99.2 94 19 97/50 (66) 98 03/10/18 16:00 Nasal Cannula 2.0 Intake and Output 03/10/18 03/11/18 18:59 06:59 Intake Total 1210 ml 1780 ml Output Total 175 ml 350 ml Balance 1035 ml 1430 ml Intake Free Water 350 ml IV Total 660 ml 710 ml Tube Feeding 550 ml 720 ml Output Urine Total 175 ml 350 ml Laboratory Tests 03/11/18 04:00: White Blood Count 8.4, Red Blood Count 3.01L, Hemoglobin 9.2L, Hematocrit 27.6L , Mean Corpuscular Volume 92, Mean Corpuscular Hemoglobin 30.5, Mean Corpuscular Hemoglobin Concent 33.4, Red Cell Distribution Width 13.5, Platelet Count 134L, Mean Platelet Volume 5.4L, Neutrophils (%) (Auto) 73.4, Lymphocytes (%) (Auto) 16.8L, Monocytes (%) (Auto) 8.5, Eosinophils (%) (Auto) 0.7, Basophils (%) (Auto) 0.6, Sodium Level 139, Potassium Level 4.7, Chloride Level 107, Carbon Dioxide Level 25, Anion Gap 7, Blood Urea Nitrogen 12, Creatinine 0.5L, Estimat Glomerular Filtration Rate , Glucose Level 139H, Calcium Level 8.5 , Vancomycin Level Trough 13.1H Current Medications Medications (Trade) Dose Ordered Sig/Cele Route PRN Reason Start Time Stop Time Status Last Admin Dose Admin Acetaminophen (Tylenol) 650 mg Q4H PRN ORAL fever (temp>100.5F) 03/07/18 17:11 04/05/18 17:10 03/11/18 12:59 Al Hydroxide/Mg Hydroxide (Mylanta II) 30 ml Q6H PRN ORAL dyspepsia 03/07/18 17:11 04/05/18 17:10 Albuterol/ Ipratropium (Albuterol/ Ipratropium) 3 ml Q4H PRN HHN Shortness of Breath 03/07/18 17:11 03/11/18 17:10 Ascorbic Acid (Vitamin C) 500 mg TWICE A DAY NG 03/11/18 18:00 04/10/18 17:59 Atenolol (Tenormin) 25 mg DAILY ORAL 03/08/18 09:00 04/06/18 08:59 03/09/18 09:01 Cefepime HCl 2 gm/ Dextrose 110 ml @ 220 mls/hr DAILY IV 03/08/18 09:00 03/13/18 14:59 03/11/18 08:49 Dextrose/ Electrolytes 1,000 ml @ 50 mls/hr Q20H IV 03/10/18 17:11 04/09/18 17:10 03/10/18 18:02 Gabapentin (Neurontin) 300 mg THREE TIMES A DAY ORAL 03/07/18 18:00 04/05/18 17:59 03/11/18 12:58 Heparin Sodium (Porcine) (Heparin 5000 units/ml) 5,000 units EVERY 12 HOURS SUBQ 03/07/18 21:00 04/05/18 20:59 03/11/18 08:52 Nitroglycerin (Ntg) 0.4 mg Q5M PRN SL Prn Chest Pain 03/07/18 17:11 04/05/18 17:10 Olanzapine (ZyPREXA) 2.5 mg Q6H PRN ORAL agitation 03/08/18 00:00 04/07/18 00:00 Ondansetron HCl (Zofran) 4 mg Q6H PRN IVP Nausea & Vomiting 03/07/18 17:11 04/05/18 17:10 Polyethylene Glycol (Miralax) 17 gm DAILYPRN PRN ORAL Constipation 03/07/18 17:12 04/06/18 17:11 Promethazine HCl/ Codeine (Phenergan with Codeine) 5 ml Q4H PRN ORAL For Cough 03/07/18 17:12 04/05/18 17:11 Tamsulosin HCl (Flomax) 0.4 mg BEDTIME ORAL 03/07/18 21:00 04/05/18 20:59 03/10/18 21:55 Temazepam (Restoril) 15 mg HSPRN PRN ORAL Insomnia 03/07/18 17:12 03/14/18 17:11 03/09/18 22:39 Vancomycin HCl (Vanco rx to dose) 1 ea DAILY PRN MISC Per rx protocol 03/08/18 09:00 04/05/18 13:29 Vancomycin HCl 500 mg/Dextrose 110 ml @ 110 mls/hr Q12H IVPB 03/09/18 17:00 03/14/18 16:59 03/11/18 07:03 Zinc Sulfate (Zinc Sulfate) 220 mg DAILY NG 03/11/18 18:00 03/20/18 09:01 Pacheco Baez MD Mar 11, 2018 15:30
[2018-03-11] MEDS: D5 1/2NS w/KCL 10meq 1,000 ML IV SCH ×2 (15:49→16:38)
[2018-03-11] MEDS ORDERED: Mylanta II UD 30ml ORAL PRN (15:53)
[2018-03-11] MEDS ORDERED: Miralax 17gm pkt ORAL PRN (15:54)
[2018-03-11] MEDS ORDERED: OLANZapine 2.5mg tab ORAL PRN (15:54)
[2018-03-11 16:00] VITALS: BP 106/61
[2018-03-11] MEDS ORDERED: Acetaminophen 650mg/20.3ml NG PRN (16:00)
[2018-03-11] MEDS ORDERED: Miralax 17gm pkt NG PRN (16:00)
[2018-03-11] MEDS ORDERED: OLANZapine 2.5mg tab NG PRN (16:00)
[2018-03-11] MEDS ORDERED: Nitroglycerin Subl 0.4mg tab SL PRN (16:00)
[2018-03-11] MEDS ORDERED: Mylanta II UD 30ml NG PRN (16:00)
[2018-03-11] MEDS ORDERED: Promethazine/Codeine 5ml UD NG PRN (17:15)
[2018-03-11] MEDS ORDERED: Albuterol/Ipratropium 3ml neb HHN PRN (17:15)
[2018-03-11] MEDS: Ascorbic Acid 500mg tab NG SCH (18:00)
[2018-03-11] MEDS ORDERED: Ascorbic Acid 500mg tab NG SCH (18:00)
[2018-03-11] MEDS ORDERED: Zinc Sulfate 220mg cap NG SCH (18:00)
[2018-03-11] MEDS: Zinc Sulfate 220mg cap NG SCH (18:00)
[2018-03-11 20:00] VITALS: BP 96/59
[2018-03-11] MEDS: Tamsulosin 0.4mg cap ORAL SCH (21:52)
[2018-03-12] VITALS: BP 108/63
[2018-03-12 04:00] VITALS: BP 92/66
[2018-03-12] MEDS: Vancomycin 500 MG in D5W 110 ML IVPB SCH ×2 (04:57→17:29)
[2018-03-12 08:00] VITALS: BP 99/61
[2018-03-12] MEDS: Atenolol 25mg tab NG SCH (09:00)
[2018-03-12] MEDS: Cefepime HCl 2 GM in D5W 110 ML IV SCH (09:50)
[2018-03-12] MEDS: Ascorbic Acid 500mg tab NG SCH ×2 (09:55→17:30)
[2018-03-12] MEDS: Zinc Sulfate 220mg cap NG SCH (09:56)
[2018-03-12] MEDS: Heparin 5000 units/ml inj SUBQ SCH ×2 (09:57→20:46)
[2018-03-12] MEDS: D5 1/2NS w/KCL 10meq 1,000 ML IV SCH (10:00)
--- NOTE | 2018-03-12 11:01 | GI Progress Note ---
Assessment/Plan Problems: (1) Dysphagia ICD Codes: R13.10 - Dysphagia, unspecified SNOMED: 91857969, 687324251 (2) Encounter for PEG (percutaneous endoscopic gastrostomy) ICD Codes: Z43.1 - Encounter for attention to gastrostomy SNOMED: 184733191, 566528264 (3) Severe malnutrition ICD Codes: E43 - Unspecified severe protein-calorie malnutrition SNOMED: 45531772 (4) Electrolyte imbalance ICD Codes: E87.8 - Other disorders of electrolyte and fluid balance, not elsewhere classified SNOMED: 241972707 (5) Dehydration ICD Codes: E86.0 - Dehydration SNOMED: 83909507 Status: unchanged Status Narrative Discussed with Dr. Velez Assessment/Plan [facility] social media analyst consult appreciated pending consent from son drop in H&H without any obvious bleeding fu CBC anemia work up OB stool to rule out GI bleed Follow-up labs The patient was seen and examined at bedside and all new and available data was reviewed in the patients chart. I agree with the above findings, impression and plan. (Patient seen earlier today. Signature stamp does not reflect patient encounter time.). - Ernesto Velez MD Subjective Subjective Limited Objective Last 24 Hour Vital Signs Date Time Temp Pulse Resp B/P (MAP) Pulse Ox O2 Delivery O2 Flow Rate FiO2 03/12/18 09:00 82 99/61 03/12/18 08:00 98.3 82 20 99/61 (74) 97 03/12/18 07:36 87 03/12/18 06:52 Nasal Cannula 2.0 28 03/12/18 06:52 99 Nasal Cannula 2.0 28 03/12/18 04:00 97.5 92 20 92/66 (75) 97 03/12/18 03:38 91 03/12/18 00:00 97.9 88 20 108/63 (78) 99 03/11/18 23:32 88 03/11/18 21:00 Nasal Cannula 2.0 03/11/18 20:21 101 22 Nasal Cannula 2.0 28 03/11/18 20:00 98.2 100 20 96/59 (71) 99 03/11/18 19:35 Nasal Cannula 2.0 28 03/11/18 19:35 99 Nasal Cannula 2.0 28 03/11/18 19:07 100 03/11/18 16:00 114 03/11/18 16:00 99.0 108 19 106/61 (76) 98 03/11/18 13:29 98.5 03/11/18 12:00 112 03/11/18 12:00 Nasal Cannula 2.0 03/11/18 12:00 99.7 119 18 125/65 (85) 98 Intake and Output 03/11/18 03/12/18 19:00 07:00 Intake Total 1330 ml 120 ml Output Total 320 ml 320 ml Balance 1010 ml -200 ml Intake Free Water 130 ml 100 ml IV Total 680 ml Tube Feeding 520 ml 20 ml Output Urine Total 250 ml 250 ml Stool Total 70 ml 70 ml # Voids 1 # Bowel Movements 1 Laboratory Tests Test 03/12/18 10:20 White Blood Count Pending Red Blood Count Pending Hemoglobin Pending Hematocrit Pending Mean Corpuscular Volume Pending Mean Corpuscular Hemoglobin Pending Mean Corpuscular Hemoglobin Concent Pending Red Cell Distribution Width Pending Platelet Count Pending Mean Platelet Volume Pending Neutrophils (%) (Auto) Pending Lymphocytes (%) (Auto) Pending Monocytes (%) (Auto) Pending Eosinophils (%) (Auto) Pending Basophils (%) (Auto) Pending Sodium Level Pending Potassium Level Pending Chloride Level Pending Carbon Dioxide Level Pending Blood Urea Nitrogen Pending Creatinine Pending Estimat Glomerular Filtration Rate Pending Glucose Level Pending Calcium Level Pending Phosphorus Level Pending Magnesium Level Pending Total Bilirubin Pending Aspartate Amino Transf (AST/SGOT) Pending Alanine Aminotransferase (ALT/SGPT) Pending Alkaline Phosphatase Pending Total Protein Pending Albumin Pending Globulin Pending Height (Feet): 5 Height (Inches): 3.00 Weight (Pounds): 164 General Appearance: no apparent distress, thin Cardiovascular: normal rate Abdominal Exam: soft, other - Dobbhoff present Thaddeus Galeana NP Mar 12, 2018 11:01
[2018-03-12 11:32] LABS: ALANINE AMINOTRANSFERASE 21 U/L (12-78); ALBUMIN 1.3 G/DL (3.4-5.0); ALBUMIN/GLOBULIN RATIO 0.4 (1.0-2.7); ALKALINE PHOSPHATASE 141 U/L (46-116); ANION GAP 6 mmol/L (5-15); ASPARTATE AMINO TRANSFERASE 38 U/L (15-37); BILIRUBIN,TOTAL 0.4 MG/DL (0.2-1.0); BLOOD UREA NITROGEN 10 mg/dL (7-18); CALCIUM 8.3 MG/DL (8.5-10.1); CARBON DIOXIDE 26 MMOL/L (21-32); CHLORIDE 104 MMOL/L (98-107); CREATININE 0.4 MG/DL (0.55-1.30); PHOSPHORUS 2.2 MG/DL (2.5-4.9); POTASSIUM 4.8 MMOL/L (3.5-5.1); SODIUM 136 MMOL/L (136-145)
[2018-03-12 12:00] VITALS: BP 99/61
--- NOTE | 2018-03-12 12:48 | Infectious Diseases Prog Note ---
Assessment/Plan Assessment/Plan Assessment: Sepsis, improving- 2ry to UTI c/w bacteremia and prob early PNA -u/a wbc tntc, nit neg, luek +3; ucx >100k PsA (R cipro/levo, otherwise S), E. fecalis (S Amp, vanco) -03/06 Bcx 4/4 P.mirabiis (R cipro, I Levo; otherwise S), 1/4 MRSE ( contaminant); 03/07 NTD -CXR: Subtle patchy opacities in the right upper lung raising question for developing pneumonia. Clinical correlation/follow-up recommended. -influenza sc neg -sp cx MRSA, C. albicans (Colonizer) Low grade fever, SP Leukocytosis, recurrent mild. SP FTT HTN Afib dysphagia HLD Dementia contractures Plan: -Continue empiric IV Vancomycin #7 for probable MRSA PNA -Continue Cefepime #09/28 for Proteus bacteremia and PsA UTI -If recurretn fevers, WBC, will obtain CT abd/p -03/06 SP Meropenem x1 -f/u legionella ag urine, Bcx x2 -Monitor CBC/CMP, temperatures -aspiration precautions Subjective Allergies: Coded Allergies: No Known Allergies (Unverified , 03/06/18) Subjective afebrile no leukocytosis Repeat Bcx NTD Objective Vital Signs Last 24 Hour Vital Signs Date Time Temp Pulse Resp B/P (MAP) Pulse Ox O2 Delivery O2 Flow Rate FiO2 03/12/18 09:00 Nasal Cannula 2.0 03/12/18 09:00 82 99/61 03/12/18 08:00 98.3 82 20 99/61 (74) 97 03/12/18 07:36 87 03/12/18 06:52 Nasal Cannula 2.0 03/12/18 06:52 99 Nasal Cannula 2.0 28 03/12/18 04:00 97.5 92 20 92/66 (75) 97 03/12/18 03:38 91 03/12/18 00:00 97.9 88 20 108/63 (78) 99 03/11/18 23:32 88 03/11/18 21:00 Nasal Cannula 2.0 03/11/18 20:21 101 22 Nasal Cannula 2.0 28 03/11/18 20:00 98.2 100 20 96/59 (71) 99 03/11/18 19:35 Nasal Cannula 2.0 28 03/11/18 19:35 99 Nasal Cannula 2.0 28 03/11/18 19:07 100 03/11/18 16:00 114 03/11/18 16:00 99.0 108 19 106/61 (76) 98 03/11/18 13:29 98.5 Height (Feet): 5 Height (Inches): 3.00 Weight (Pounds): 164 Objective General Appearance: no apparent distress, alert, GCS 15, non-toxic, other - frail, elderly, chronically ill, contracted, non-verbal, Chronically Ill HEENT: normocephalic, atraumatic, bilateral eye normal inspection, bilateral eye PERRL Respiratory: chest non-tender, lungs clear, normal breath sounds, no respiratory distress, no retraction, no accessory muscle use, speaking full sentences Cardiovascular : no edema, tachycardia, systolic murmur, irregularly irregular Gastrointestinal: normal bowel sounds, non tender, soft, non-distended, no guarding, no rebound, other - colostomy bag in place. Musculoskeletal: back normal, gait/station normal, normal range of motion, non- tender Neurologic: alert, other - non-focal. Contracted, non-verbal Skin: no rash, warm/dry, well hydrated, other - Multiple DU Laboratory Tests Test 03/12/18 10:20 Sodium Level 136 MMOL/L (136-145) Potassium Level 4.8 MMOL/L (3.5-5.1) Chloride Level 104 MMOL/L (98-107) Carbon Dioxide Level 26 MMOL/L (21-32) Anion Gap 6 mmol/L (5-15) Blood Urea Nitrogen 10 mg/dL (7-18) Creatinine 0.4 MG/DL (0.55-1.30) L Estimat Glomerular Filtration Rate mL/min (>60) Glucose Level 139 MG/DL (74-106) H Calcium Level 8.3 MG/DL (8.5-10.1) L Phosphorus Level 2.2 MG/DL (2.5-4.9) L Magnesium Level 1.8 MG/DL (1.8-2.4) Total Bilirubin 0.4 MG/DL (0.2-1.0) Aspartate Amino Transf (AST/SGOT) 38 U/L (15-37) H Alanine Aminotransferase (ALT/SGPT) 21 U/L (12-78) Alkaline Phosphatase 141 U/L (46-116) H Total Protein 4.8 G/DL (6.4-8.2) L Albumin 1.3 G/DL (3.4-5.0) L Globulin 3.5 g/dL Albumin/Globulin Ratio 0.4 (1.0-2.7) L Current Medications Medications (Trade) Dose Ordered Sig/Cele Route PRN Reason Start Time Stop Time Status Last Admin Dose Admin Acetaminophen (Tylenol) 650 mg Q4H PRN NG fever (temp>100.5F) 03/11/18 16:00 04/05/18 15:52 03/11/18 21:54 Al Hydroxide/Mg Hydroxide (Mylanta II) 30 ml Q6H PRN NG dyspepsia 03/11/18 16:00 04/05/18 15:52 Albuterol/ Ipratropium (Albuterol/ Ipratropium) 3 ml Q4H PRN HHN Shortness of Breath 03/11/18 17:15 03/16/18 17:14 Ascorbic Acid (Vitamin C) 500 mg TWICE A DAY NG 03/11/18 18:00 04/10/18 17:59 03/12/18 09:55 Atenolol (Tenormin) 25 mg DAILY NG 03/12/18 09:00 04/06/18 08:59 Cefepime HCl 2 gm/ Dextrose 110 ml @ 220 mls/hr DAILY IV 03/12/18 09:00 03/13/18 14:59 03/12/18 09:50 Dextrose/ Electrolytes 1,000 ml @ 50 mls/hr Q20H IV 03/11/18 16:00 04/09/18 17:10 03/12/18 10:00 Gabapentin (Neurontin) 300 mg THREE TIMES A DAY NG 03/11/18 18:00 04/05/18 17:59 03/12/18 09:55 Heparin Sodium (Porcine) (Heparin 5000 units/ml) 5,000 units EVERY 12 HOURS SUBQ 03/11/18 21:00 04/05/18 20:59 03/12/18 09:57 Nitroglycerin (Ntg) 0.4 mg Q5M PRN SL Prn Chest Pain 03/11/18 16:00 04/05/18 17:10 Olanzapine (ZyPREXA) 2.5 mg Q6H PRN NG agitation 03/11/18 16:00 04/07/18 15:53 Ondansetron HCl (Zofran) 4 mg Q6H PRN IVP Nausea & Vomiting 03/11/18 15:54 04/05/18 15:53 Polyethylene Glycol (Miralax) 17 gm DAILYPRN PRN NG Constipation 03/11/18 16:00 04/06/18 15:53 Promethazine HCl/ Codeine (Phenergan with Codeine) 5 ml Q4H PRN NG For Cough 03/11/18 17:15 04/05/18 17:11 Tamsulosin HCl (Flomax) 0.4 mg BEDTIME ORAL 03/11/18 21:00 04/05/18 20:59 03/11/18 21:52 Temazepam (Restoril) 15 mg HSPRN PRN ORAL Insomnia 03/11/18 17:15 03/14/18 17:11 Vancomycin HCl (Vanco rx to dose) 1 ea DAILY PRN MISC Per rx protocol 03/12/18 09:00 04/05/18 13:29 Vancomycin HCl 500 mg/Dextrose 110 ml @ 110 mls/hr Q12H IVPB 03/11/18 17:00 03/14/18 16:59 03/12/18 04:57 Zinc Sulfate (Zinc Sulfate) 220 mg DAILY NG 03/11/18 18:00 03/20/18 09:01 03/12/18 09:56 Sussy Daniel M.D. Mar 12, 2018 12:48
[2018-03-12 16:00] VITALS: BP 112/66
--- NOTE | 2018-03-12 16:11 | Pulmonology Progress Note ---
Assessment/Plan Assessment/Plan Pulmonary Progress Note HPI This patient is brought in by EMS. Per report, the patient has had failure to thrive and generalized weakness. They also note hematuria. The patient is nonverbal and unable to articulate any complaints. She has also stopped eating per the medical record and nursing notes. There is no other history of present illness available or documented. Allergies: No Known Allergies Past Medical History: HTN, AFib, dementia, HL psych hx, other - contractures, DU, muscle wasting, previous G tube Social History: Denies: smoking, alcohol use, drug use All Other Systems: limited Physical Exam Vital Signs Noted General Appearance: no apparent distress, alert, GCS 15, non-toxic, other - frail, elderly, chronically ill, contracted, non-verbal, Chronically Ill Head: normocephalic, atraumatic Eyes: bilateral eye normal inspection, bilateral eye PERRL ENT: no angioedema Neck: other - flexed. contracted. Respiratory: chest non-tender, lungs clear, normal breath sounds, no respiratory distress, no retraction, no accessory muscle use, speaking full sentences Cardiovascular #1: no edema, tachycardia, systolic murmur, irregularly irregular Gastrointestinal: normal bowel sounds, non tender, soft, non-distended, no guarding, no rebound, other - colostomy bag in place. Rectal: deferred Musculoskeletal: back normal, gait/station normal, normal range of motion, non- tender Neurologic: alert, other - non-focal. Contracted, non-verbal Psychiatric: mood/affect normal Skin: no rash, warm/dry, well hydrated, other - Multiple DU Impression: Pyelonephritis Sepsis Pneumonia Hypernatremia Lactic acid acidosis HTN, AFib, Dementia, HL psych hx, other - contractures, DU, muscle wasting, previous G tube Plan IV Antibiotics O2 PRN PPX IVF PTAmeds Aspiration precautions Laboratory Tests Test 03/06/18 10:12 03/06/18 10:25 03/06/18 10:47 White Blood Count 15.7 K/UL (4.8-10.8) H Red Blood Count 4.60 M/UL (4.20-5.40) Hemoglobin 13.3 G/DL (12.0-16.0) Hematocrit 42.1 % (37.0-47.0) Mean Corpuscular Volume 91 FL (80-99) Mean Corpuscular Hemoglobin 28.9 PG (27.0-31.0) Mean Corpuscular Hemoglobin Concent 31.7 G/DL (32.0-36.0) L Red Cell Distribution Width 13.3 % (11.6-14.8) Platelet Count 246 K/UL (150-450) Mean Platelet Volume 5.4 FL (6.5-10.1) L Neutrophils (%) (Auto) 77.5 % (45.0-75.0) H Lymphocytes (%) (Auto) 13.9 % (20.0-45.0) L Monocytes (%) (Auto) 8.1 % (1.0-10.0) Eosinophils (%) (Auto) 0.1 % (0.0-3.0) Basophils (%) (Auto) 0.4 % (0.0-2.0) Prothrombin Time 12.4 SEC (9.30-11.50) H Prothrombin Time INR 1.2 (0.9-1.1) H PTT 29 SEC (23-33) Sodium Level 147 MMOL/L (136-145) H Potassium Level 4.8 MMOL/L (3.5-5.1) Chloride Level 108 MMOL/L (98-107) H Carbon Dioxide Level 30 MMOL/L (21-32) Anion Gap 9 mmol/L (5-15) Blood Urea Nitrogen 18 mg/dL (7-18) Creatinine 0.8 MG/DL (0.55-1.30) Estimate Glomerular Filtration Rate mL/min (>60) Glucose Level 114 MG/DL (74-106) H Lactic Acid Level 3.60 mmol/L (0.4-2.0) H Calcium Level 9.1 MG/DL (8.5-10.1) Phosphorus Level 3.2 MG/DL (2.5-4.9) Magnesium Level 1.9 MG/DL (1.8-2.4) Total Bilirubin 0.6 MG/DL (0.2-1.0) Aspartate Amino Transferase (AST) 27 U/L (15-37) Alanine Aminotransferase (ALT) 16 U/L (12-78) Alkaline Phosphatase 128 U/L (46-116) H Total Creatine Kinase 59 U/L (26-308) Creatine Kinase MB 1.6 NG/ML (0.0-3.6) Creatine Kinase MB Relative Index 2.7 Total Protein 6.7 G/DL (6.4-8.2) Albumin 2.1 G/DL (3.4-5.0) L Globulin 4.6 g/dL Albumin/Globulin Ratio 0.5 (1.0-2.7) L Troponin I 0.033 ng/mL (0.000-0.056) Urine Color Yellow Urine Appearance Cloudy Urine pH 6 (4.5-8.0) Urine Specific [place] 1.020 (1.005-1.035) Urine Protein 4+ (NEGATIVE) H Urine Glucose (UA) Negative (NEGATIVE) Urine Ketones 3+ (NEGATIVE) H Urine Blood 5+ (NEGATIVE) H Urine Nitrite Negative (NEGATIVE) Urine Bilirubin 1+ (NEGATIVE) H Urine Ictotest Negative (NEGATIVE) Urine Urobilinogen Normal MG/DL (0.0-1.0) Urine Leukocyte Esterase 3+ (NEGATIVE) H Urine RBC 30-40 /HPF (0 - 2) H Urine WBC Tntc /HPF (0 - 2) H Urine Squamous Epithelial Cells Few /LPF (NONE/OCC) Urine Bacteria Few /HPF (NONE) Microbiology Date/Time Source Procedure Growth Status 03/06/18 10:12 Nasal Nares Influenza Types A,B Antigen (NGA) - Final Complete EKG Diagnostic Results Rate: tachycardiac Rhythm: other - S.tachycardia ST Segments: no acute changes Chest X-Ray Diagnostic Results Chest X-Ray Diagnostic Results : Chest X-Ray Ordered: Yes # of Views/Limited/Complete: 1 View Indication: Other EP Interpretation: No Interpretation: other - Questionable opacity RUL Impression: Other - See above Electronically Signed by: Halima Chery DO Subjective ROS Limited/Unobtainable: No Allergies: Coded Allergies: No Known Allergies (Unverified , 03/06/18) Objective Last 24 Hour Vital Signs Date Time Temp Pulse Resp B/P (MAP) Pulse Ox O2 Delivery O2 Flow Rate FiO2 03/12/18 09:00 Nasal Cannula 2.0 03/12/18 09:00 82 99/61 03/12/18 08:00 98.3 82 20 99/61 (74) 97 03/12/18 07:36 87 03/12/18 06:52 Nasal Cannula 2.0 28 03/12/18 06:52 99 Nasal Cannula 2.0 28 03/12/18 04:00 97.5 92 20 92/66 (75) 97 03/12/18 03:38 91 03/12/18 00:00 97.9 88 20 108/63 (78) 99 03/11/18 23:32 88 03/11/18 21:00 Nasal Cannula 2.0 03/11/18 20:21 101 22 Nasal Cannula 2.0 28 03/11/18 20:00 98.2 100 20 96/59 (71) 99 03/11/18 19:35 Nasal Cannula 2.0 28 03/11/18 19:35 99 Nasal Cannula 2.0 28 03/11/18 19:07 100 Intake and Output 03/11/18 03/12/18 19:00 07:00 Intake Total 1330 ml 120 ml Output Total 320 ml 320 ml Balance 1010 ml -200 ml Intake Free Water 130 ml 100 ml IV Total 680 ml Tube Feeding 520 ml 20 ml Output Urine Total 250 ml 250 ml Stool Total 70 ml 70 ml # Voids 1 # Bowel Movements 1 Laboratory Tests 03/12/18 10:20: Sodium Level 136, Potassium Level 4.8, Chloride Level 104, Carbon Dioxide Level 26, Anion Gap 6, Blood Urea Nitrogen 10, Creatinine 0.4L, Estimat Glomerular Filtration Rate , Glucose Level 139H, Calcium Level 8.3L, Phosphorus Level 2.2L , Magnesium Level 1.8, Total Bilirubin 0.4, Aspartate Amino Transf (AST/SGOT) 38H, Alanine Aminotransferase (ALT/SGPT) 21, Alkaline Phosphatase 141H, Total Protein 4.8L, Albumin 1.3L, Globulin 3.5, Albumin/Globulin Ratio 0.4L Current Medications Medications (Trade) Dose Ordered Sig/Cele Route PRN Reason Start Time Stop Time Status Last Admin Dose Admin Acetaminophen (Tylenol) 650 mg Q4H PRN NG fever (temp>100.5F) 03/11/18 16:00 04/05/18 15:52 03/11/18 21:54 Al Hydroxide/Mg Hydroxide (Mylanta II) 30 ml Q6H PRN NG dyspepsia 03/11/18 16:00 04/05/18 15:52 Albuterol/ Ipratropium (Albuterol/ Ipratropium) 3 ml Q4H PRN HHN Shortness of Breath 03/11/18 17:15 03/16/18 17:14 Ascorbic Acid (Vitamin C) 500 mg TWICE A DAY NG 03/11/18 18:00 04/10/18 17:59 03/12/18 09:55 Atenolol (Tenormin) 25 mg DAILY NG 03/12/18 09:00 04/06/18 08:59 Cefepime HCl 2 gm/ Dextrose 110 ml @ 220 mls/hr DAILY IV 03/12/18 09:00 03/13/18 14:59 03/12/18 09:50 Dextrose/ Electrolytes 1,000 ml @ 50 mls/hr Q20H IV 03/11/18 16:00 04/09/18 17:10 03/12/18 10:00 Gabapentin (Neurontin) 300 mg THREE TIMES A DAY NG 03/11/18 18:00 04/05/18 17:59 03/12/18 13:17 Heparin Sodium (Porcine) (Heparin 5000 units/ml) 5,000 units EVERY 12 HOURS SUBQ 03/11/18 21:00 04/05/18 20:59 03/12/18 09:57 Nitroglycerin (Ntg) 0.4 mg Q5M PRN SL Prn Chest Pain 03/11/18 16:00 04/05/18 17:10 Olanzapine (ZyPREXA) 2.5 mg Q6H PRN NG agitation 03/11/18 16:00 04/07/18 15:53 Ondansetron HCl (Zofran) 4 mg Q6H PRN IVP Nausea & Vomiting 03/11/18 15:54 04/05/18 15:53 Polyethylene Glycol (Miralax) 17 gm DAILYPRN PRN NG Constipation 03/11/18 16:00 04/06/18 15:53 Promethazine HCl/ Codeine (Phenergan with Codeine) 5 ml Q4H PRN NG For Cough 03/11/18 17:15 04/05/18 17:11 Tamsulosin HCl (Flomax) 0.4 mg BEDTIME ORAL 03/11/18 21:00 04/05/18 20:59 03/11/18 21:52 Temazepam (Restoril) 15 mg HSPRN PRN ORAL Insomnia 03/11/18 17:15 03/14/18 17:11 Vancomycin HCl (Vanco rx to dose) 1 ea DAILY PRN MISC Per rx protocol 03/12/18 09:00 04/05/18 13:29 Vancomycin HCl 500 mg/Dextrose 110 ml @ 110 mls/hr Q12H IVPB 03/11/18 17:00 03/14/18 16:59 03/12/18 04:57 Zinc Sulfate (Zinc Sulfate) 220 mg DAILY NG 03/11/18 18:00 03/20/18 09:01 03/12/18 09:56 Pacheco Baez MD Mar 12, 2018 16:11
--- NOTE | 2018-03-12 16:25 | Internal Med Progress Note ---
Subjective Physician Name Davian Scott Attending Physician Davian Scott MD Current Medications Medications (Trade) Dose Ordered Sig/Cele Route PRN Reason Start Time Stop Time Status Last Admin Dose Admin Acetaminophen (Tylenol) 650 mg Q4H PRN NG fever (temp>100.5F) 03/11/18 16:00 04/05/18 15:52 03/11/18 21:54 Al Hydroxide/Mg Hydroxide (Mylanta II) 30 ml Q6H PRN NG dyspepsia 03/11/18 16:00 04/05/18 15:52 Albuterol/ Ipratropium (Albuterol/ Ipratropium) 3 ml Q4H PRN HHN Shortness of Breath 03/11/18 17:15 03/16/18 17:14 Ascorbic Acid (Vitamin C) 500 mg TWICE A DAY NG 03/11/18 18:00 04/10/18 17:59 03/12/18 09:55 Atenolol (Tenormin) 25 mg DAILY NG 03/12/18 09:00 04/06/18 08:59 Cefepime HCl 2 gm/ Dextrose 110 ml @ 220 mls/hr DAILY IV 03/12/18 09:00 03/13/18 14:59 03/12/18 09:50 Dextrose/ Electrolytes 1,000 ml @ 50 mls/hr Q20H IV 03/11/18 16:00 04/09/18 17:10 03/12/18 10:00 Gabapentin (Neurontin) 300 mg THREE TIMES A DAY NG 03/11/18 18:00 04/05/18 17:59 03/12/18 13:17 Heparin Sodium (Porcine) (Heparin 5000 units/ml) 5,000 units EVERY 12 HOURS SUBQ 03/11/18 21:00 04/05/18 20:59 03/12/18 09:57 Nitroglycerin (Ntg) 0.4 mg Q5M PRN SL Prn Chest Pain 03/11/18 16:00 04/05/18 17:10 Olanzapine (ZyPREXA) 2.5 mg Q6H PRN NG agitation 03/11/18 16:00 04/07/18 15:53 Ondansetron HCl (Zofran) 4 mg Q6H PRN IVP Nausea & Vomiting 03/11/18 15:54 04/05/18 15:53 Polyethylene Glycol (Miralax) 17 gm DAILYPRN PRN NG Constipation 03/11/18 16:00 04/06/18 15:53 Promethazine HCl/ Codeine (Phenergan with Codeine) 5 ml Q4H PRN NG For Cough 03/11/18 17:15 04/05/18 17:11 Tamsulosin HCl (Flomax) 0.4 mg BEDTIME ORAL 03/11/18 21:00 04/05/18 20:59 03/11/18 21:52 Temazepam (Restoril) 15 mg HSPRN PRN ORAL Insomnia 03/11/18 17:15 03/14/18 17:11 Vancomycin HCl (Vanco rx to dose) 1 ea DAILY PRN MISC Per rx protocol 03/12/18 09:00 04/05/18 13:29 Vancomycin HCl 500 mg/Dextrose 110 ml @ 110 mls/hr Q12H IVPB 03/11/18 17:00 03/14/18 16:59 03/12/18 04:57 Zinc Sulfate (Zinc Sulfate) 220 mg DAILY NG 03/11/18 18:00 03/20/18 09:01 03/12/18 09:56 Allergies: Coded Allergies: No Known Allergies (Unverified , 03/06/18) Subjective awake, more responsive, open eyes, not verbal, NAD. Objective Last Vital Signs Date Time Temp Pulse Resp B/P (MAP) Pulse Ox O2 Delivery O2 Flow Rate FiO2 03/12/18 09:00 Nasal Cannula 2.0 03/12/18 09:00 82 99/61 03/12/18 08:00 98.3 20 97 03/12/18 06:52 28 Laboratory Tests Test 03/12/18 10:20 Sodium Level 136 MMOL/L (136-145) Potassium Level 4.8 MMOL/L (3.5-5.1) Chloride Level 104 MMOL/L (98-107) Carbon Dioxide Level 26 MMOL/L (21-32) Anion Gap 6 mmol/L (5-15) Blood Urea Nitrogen 10 mg/dL (7-18) Creatinine 0.4 MG/DL (0.55-1.30) L Estimat Glomerular Filtration Rate mL/min (>60) Glucose Level 139 MG/DL (74-106) H Calcium Level 8.3 MG/DL (8.5-10.1) L Phosphorus Level 2.2 MG/DL (2.5-4.9) L Magnesium Level 1.8 MG/DL (1.8-2.4) Total Bilirubin 0.4 MG/DL (0.2-1.0) Aspartate Amino Transf (AST/SGOT) 38 U/L (15-37) H Alanine Aminotransferase (ALT/SGPT) 21 U/L (12-78) Alkaline Phosphatase 141 U/L (46-116) H Total Protein 4.8 G/DL (6.4-8.2) L Albumin 1.3 G/DL (3.4-5.0) L Globulin 3.5 g/dL Albumin/Globulin Ratio 0.4 (1.0-2.7) L Intake and Output 03/11/18 03/12/18 18:59 06:59 Intake Total 1440 ml 120 ml Output Total 320 ml 320 ml Balance 1120 ml -200 ml Intake Free Water 130 ml 100 ml IV Total 730 ml Tube Feeding 580 ml 20 ml Output Urine Total 250 ml 250 ml Stool Total 70 ml 70 ml # Voids 1 # Bowel Movements 1 Objective General: No acute distress, awake and open eyes HEENT: NCAT, sclera anicteric, PERRL, NG Tube Neck: Supple, no significant jugular venous distention, Lungs: fair inspiratory effort, Decrease air at bases, no Wheeze or Rales. Heart: Regular rate and rhythm, normal S1/S2, no murmur, Abdomen: soft, nontender, nondistended. Normoactive bowel sounds. : [place] cath Extremities: No Cyanosis , clubbing or edema. Neuro: A&O x 1, Limited due to patient status, Functional Quadriplegia Skin: warm, no rashes, Assessment/Plan Assessment/Plan Sepsis due to UTI Bacteremia Probability early PNA Functional Quadriplegia. HTN Afib dysphagia HLD Dementia All extremities contracture Multiple Decubitus Ulcer Plan: Abx: Cefepime and Vanco IV Tube feeding @ 60 cc/hr Full code heparin SQ F/U with labs and cultures. For possible PEG soon. Davian Scott MD Mar 12, 2018 16:25
[2018-03-12 19:30] LABS: BASOPHILS % (AUTO) 0.7 % (0.0-2.0); EOSINOPHILS % (AUTO) 0.6 % (0.0-3.0); HEMATOCRIT 28.5 % (37.0-47.0); HEMOGLOBIN 9.6 G/DL (12.0-16.0); LYMPHOCYTES % (AUTO) 12.5 % (20.0-45.0); MEAN CORPUSCULAR VOLUME 90 FL (80-99); NEUTROPHILS % (AUTO) 77.3 % (45.0-75.0); PLATELET COUNT 167 K/UL (150-450); RED BLOOD COUNT 3.17 M/UL (4.20-5.40); RED CELL DISTRIBUTION WIDTH 12.9 % (11.6-14.8)
--- NOTE | 2018-03-12 19:47 | General Progress Note ---
Assessment/Plan Problem List: (1) encephalopathy due to metabolic factor Status: stable, progressing Assessment/Plan zyprexa prn Subjective Allergies: Coded Allergies: No Known Allergies (Unverified , 03/06/18) Subjective confused not agitated not able to provide hx Objective Last 24 Hour Vital Signs Date Time Temp Pulse Resp B/P (MAP) Pulse Ox O2 Delivery O2 Flow Rate FiO2 03/12/18 16:00 98.3 84 20 112/66 (81) 98 03/12/18 15:18 121 03/12/18 12:00 98.8 82 20 99/61 (74) 97 03/12/18 12:00 116 03/12/18 09:00 Nasal Cannula 2.0 03/12/18 09:00 82 99/61 03/12/18 08:00 98.3 82 20 99/61 (74) 97 03/12/18 07:36 87 03/12/18 06:52 Nasal Cannula 2.0 28 03/12/18 06:52 99 Nasal Cannula 2.0 28 03/12/18 04:00 97.5 92 20 92/66 (75) 97 03/12/18 03:38 91 03/12/18 00:00 97.9 88 20 108/63 (78) 99 03/11/18 23:32 88 03/11/18 21:00 Nasal Cannula 2.0 03/11/18 20:21 101 22 Nasal Cannula 2.0 28 03/11/18 20:00 98.2 100 20 96/59 (71) 99 Intake and Output 03/11/18 03/12/18 18:59 06:59 Intake Total 1440 ml 120 ml Output Total 320 ml 320 ml Balance 1120 ml -200 ml Intake Free Water 130 ml 100 ml IV Total 730 ml Tube Feeding 580 ml 20 ml Output Urine Total 250 ml 250 ml Stool Total 70 ml 70 ml # Voids 1 # Bowel Movements 1 Laboratory Tests 03/12/18 10:20: Sodium Level 136, Potassium Level 4.8, Chloride Level 104, Carbon Dioxide Level 26, Anion Gap 6, Blood Urea Nitrogen 10, Creatinine 0.4L, Estimat Glomerular Filtration Rate , Glucose Level 139H, Calcium Level 8.3L, Phosphorus Level 2.2L , Magnesium Level 1.8, Total Bilirubin 0.4, Aspartate Amino Transf (AST/SGOT) 38H, Alanine Aminotransferase (ALT/SGPT) 21, Alkaline Phosphatase 141H, Total Protein 4.8L, Albumin 1.3L, Globulin 3.5, Albumin/Globulin Ratio 0.4L 03/12/18 19:00: White Blood Count 13.0H, Red Blood Count 3.17L, Hemoglobin 9.6L, Hematocrit 28.5L, Mean Corpuscular Volume 90, Mean Corpuscular Hemoglobin 30.3, Mean Corpuscular Hemoglobin Concent 33.8, Red Cell Distribution Width 12.9, Platelet Count 167, Mean Platelet Volume 6.0L, Neutrophils (%) (Auto) 77.3H, Lymphocytes (%) (Auto) 12.5L, Monocytes (%) (Auto) 9.0, Eosinophils (%) (Auto) 0.6, Basophils (%) (Auto) 0.7 Height (Feet): 5 Height (Inches): 3.00 Weight (Pounds): 164 General Appearance: alert, confused Bj Martinez MD Mar 12, 2018 19:47
[2018-03-12 20:00] VITALS: BP 98/59
[2018-03-12] MEDS: Tamsulosin 0.4mg cap ORAL SCH (20:46)
[2018-03-13] VITALS: BP 102/63
[2018-03-13 04:00] VITALS: BP 166/66
[2018-03-13] MEDS: Vancomycin 500 MG in D5W 110 ML IVPB SCH (04:59)
[2018-03-13 07:04] LABS: EOSINOPHILS % (AUTO) 0.5 % (0.0-3.0); HEMATOCRIT 28.1 % (37.0-47.0); HEMOGLOBIN 9.5 G/DL (12.0-16.0); LYMPHOCYTES % (AUTO) 13.7 % (20.0-45.0); MEAN CORPUSCULAR VOLUME 91 FL (80-99); NEUTROPHILS % (AUTO) 75.9 % (45.0-75.0); PLATELET COUNT 164 K/UL (150-450); RED CELL DISTRIBUTION WIDTH 12.8 % (11.6-14.8); WHITE BLOOD COUNT 11.6 K/UL (4.8-10.8)
[2018-03-13 07:38] LABS: ALANINE AMINOTRANSFERASE 19 U/L (12-78); ALBUMIN 1.2 G/DL (3.4-5.0); ALBUMIN/GLOBULIN RATIO 0.3 (1.0-2.7); ALKALINE PHOSPHATASE 148 U/L (46-116); ANION GAP 5 mmol/L (5-15); ASPARTATE AMINO TRANSFERASE 31 U/L (15-37); BILIRUBIN,TOTAL 0.2 MG/DL (0.2-1.0); BLOOD UREA NITROGEN 9 mg/dL (7-18); CALCIUM 8.4 MG/DL (8.5-10.1); CARBON DIOXIDE 29 MMOL/L (21-32); CHLORIDE 102 MMOL/L (98-107); CREATININE 0.5 MG/DL (0.55-1.30); POTASSIUM 4.4 MMOL/L (3.5-5.1); SODIUM 136 MMOL/L (136-145)
[2018-03-13 08:00] VITALS: BP 148/112
[2018-03-13] MEDS: D5 1/2NS w/KCL 10meq 1,000 ML IV SCH (09:25)
[2018-03-13] MEDS: Atenolol 25mg tab NG SCH (09:26)
[2018-03-13] MEDS: Cefepime HCl 2 GM in D5W 110 ML IV SCH (09:26)
[2018-03-13] MEDS: Ascorbic Acid 500mg tab NG SCH ×2 (09:26→18:05)
[2018-03-13] MEDS: Zinc Sulfate 220mg cap NG SCH (09:26)
[2018-03-13] MEDS: Heparin 5000 units/ml inj SUBQ SCH ×2 (09:38→22:12)
--- NOTE | 2018-03-13 11:10 | GI Progress Note ---
Assessment/Plan Problems: (1) Dysphagia ICD Codes: R13.10 - Dysphagia, unspecified SNOMED: 61235512, 504752665 (2) Encounter for PEG (percutaneous endoscopic gastrostomy) ICD Codes: Z43.1 - Encounter for attention to gastrostomy SNOMED: 137026429, 514942628 (3) Severe malnutrition ICD Codes: E43 - Unspecified severe protein-calorie malnutrition SNOMED: 94246501 (4) Electrolyte imbalance ICD Codes: E87.8 - Other disorders of electrolyte and fluid balance, not elsewhere classified SNOMED: 518265863 (5) Dehydration ICD Codes: E86.0 - Dehydration SNOMED: 41484175 Status: unchanged Status Narrative Discussed with Dr. Velez Assessment/Plan Update @ 1540 >> PEG cancelled per son's request to see patient over the weekend for possible placement next Saturday. [facility] Bioethics consult pending Unable to obtain consent from son PEG to be scheduled tomorrow, discussed with bioethics. -N.p.o. at midnight -Hold all blood thinners tonight Tube feedings per RD to goal drop in H&H without any obvious bleeding fu CBC, as needed transfusions OB stool to rule out GI bleed Follow-up labs The patient was seen and examined at bedside and all new and available data was reviewed in the patients chart. I agree with the above findings, impression and plan. (Patient seen earlier today. Signature stamp does not reflect patient encounter time.). - Ernesto Velez MD Subjective Subjective Limited Objective Last 24 Hour Vital Signs Date Time Temp Pulse Resp B/P (MAP) Pulse Ox O2 Delivery O2 Flow Rate FiO2 03/13/18 09:26 139 148/112 03/13/18 08:00 98.4 139 18 148/112 (124) 99 03/13/18 07:32 Nasal Cannula 2.0 28 03/13/18 07:32 99 Nasal Cannula 2.0 28 03/13/18 04:00 98.4 89 20 166/66 (99) 99 03/13/18 04:00 110 03/13/18 00:00 116 03/13/18 00:00 98.9 117 20 102/63 (76) 98 03/12/18 21:00 Nasal Cannula 2.0 03/12/18 21:00 116 03/12/18 20:00 98.8 116 20 98/59 (72) 98 03/12/18 19:54 Nasal Cannula 2.0 28 03/12/18 19:54 98 Nasal Cannula 2.0 28 03/12/18 16:00 98.3 84 20 112/66 (81) 98 03/12/18 15:18 121 03/12/18 12:00 98.8 82 20 99/61 (74) 97 03/12/18 12:00 116 Intake and Output 03/12/18 03/13/18 19:00 07:00 Intake Total 1529.1667 ml 2580 ml Output Total 550 ml 2300 ml Balance 979.1667 ml 280 ml Intake Free Water 90 ml 1200 ml IV Total 819.1667 ml 660 ml Tube Feeding 620 ml 720 ml Output Urine Total 250 ml 2000 ml Stool Total 300 ml 300 ml # Voids 1 # Bowel Movements 1 Laboratory Tests Test 03/12/18 19:00 03/13/18 06:20 White Blood Count 13.0 K/UL (4.8-10.8) H 11.6 K/UL (4.8-10.8) H Red Blood Count 3.17 M/UL (4.20-5.40) L 3.10 M/UL (4.20-5.40) L Hemoglobin 9.6 G/DL (12.0-16.0) L 9.5 G/DL (12.0-16.0) L Hematocrit 28.5 % (37.0-47.0) L 28.1 % (37.0-47.0) L Mean Corpuscular Volume 90 FL (80-99) 91 FL (80-99) Mean Corpuscular Hemoglobin 30.3 PG (27.0-31.0) 30.6 PG (27.0-31.0) Mean Corpuscular Hemoglobin Concent 33.8 G/DL (32.0-36.0) 33.8 G/DL (32.0-36.0) Red Cell Distribution Width 12.9 % (11.6-14.8) 12.8 % (11.6-14.8) Platelet Count 167 K/UL (150-450) 164 K/UL (150-450) Mean Platelet Volume 6.0 FL (6.5-10.1) L 5.8 FL (6.5-10.1) L Neutrophils (%) (Auto) 77.3 % (45.0-75.0) H 75.9 % (45.0-75.0) H Lymphocytes (%) (Auto) 12.5 % (20.0-45.0) L 13.7 % (20.0-45.0) L Monocytes (%) (Auto) 9.0 % (1.0-10.0) 9.0 % (1.0-10.0) Eosinophils (%) (Auto) 0.6 % (0.0-3.0) 0.5 % (0.0-3.0) Basophils (%) (Auto) 0.7 % (0.0-2.0) 1.0 % (0.0-2.0) Sodium Level 136 MMOL/L (136-145) Potassium Level 4.4 MMOL/L (3.5-5.1) Chloride Level 102 MMOL/L (98-107) Carbon Dioxide Level 29 MMOL/L (21-32) Anion Gap 5 mmol/L (5-15) Blood Urea Nitrogen 9 mg/dL (7-18) Creatinine 0.5 MG/DL (0.55-1.30) L Estimat Glomerular Filtration Rate mL/min (>60) Glucose Level 170 MG/DL (74-106) H Calcium Level 8.4 MG/DL (8.5-10.1) L Total Bilirubin 0.2 MG/DL (0.2-1.0) Aspartate Amino Transf (AST/SGOT) 31 U/L (15-37) Alanine Aminotransferase (ALT/SGPT) 19 U/L (12-78) Alkaline Phosphatase 148 U/L (46-116) H Total Protein 4.9 G/DL (6.4-8.2) L Albumin 1.2 G/DL (3.4-5.0) L Globulin 3.7 g/dL Albumin/Globulin Ratio 0.3 (1.0-2.7) L Height (Feet): 5 Height (Inches): 3.00 Weight (Pounds): 164 General Appearance: alert, thin Cardiovascular: normal rate Respiratory/Chest: normal breath sounds Abdominal Exam: other - Dobbhoff present Thaddeus Galeana NP Mar 13, 2018 11:10
[2018-03-13 12:00] VITALS: BP 99/55
--- NOTE | 2018-03-13 12:10 | General Progress Note ---
Progress Note Progress Note Bioethics Consult This 87 year old with multiple decubiti and quadriplegia has poor nutrition due to aspiration and inability to eat. Wounds are unlikely to heal with current state of nutrition. Son is only family member and signed preferred intensity of care form 02/10/18 indicating that he wanted G-tube and other intensive measures. Since family approves and and attending physician apparently wishes to proceed a G-tube may be placed.. Will discuss in detail at next Bioethics Committee meeting. Jason Melo MD+ Jason Melo MD Mar 13, 2018 12:10
--- NOTE | 2018-03-13 15:00 | Infectious Diseases Prog Note ---
Assessment/Plan Assessment/Plan Assessment: Sepsis, improving- 2ry to UTI c/w bacteremia and prob early PNA -u/a wbc tntc, nit neg, luek +3; ucx >100k PsA (R cipro/levo, otherwise S), E. fecalis (S Amp, vanco) -03/06 Bcx 4/4 P.mirabiis (R cipro, I Levo; otherwise S), 1/4 MRSE ( contaminant); 03/07 Neg -CXR: Subtle patchy opacities in the right upper lung raising question for developing pneumonia. Clinical correlation/follow-up recommended. -influenza sc neg -sp cx MRSA, C. albicans (Colonizer) Low grade fever, SP Leukocytosis, recurrent mild. SP FTT HTN Afib dysphagia HLD Dementia contractures Plan: -Continue Cefepime #10/29 for Proteus bacteremia and PsA UTI -If recurretn fevers, WBC, will obtain CT abd/p -03/13 SP IV Vancomycin #7 -03/06 SP Meropenem x1 -f/u legionella ag urine -Monitor CBC/CMP, temperatures -aspiration precautions Subjective Allergies: Coded Allergies: No Known Allergies (Unverified , 03/06/18) Subjective afebrile leukocytosis improving Repeat Bcx Neg Objective Vital Signs Last 24 Hour Vital Signs Date Time Temp Pulse Resp B/P (MAP) Pulse Ox O2 Delivery O2 Flow Rate FiO2 03/13/18 12:00 97.8 111 18 99/55 (70) 98 03/13/18 09:26 139 148/112 03/13/18 09:00 Nasal Cannula 2.0 03/13/18 08:00 98.4 139 18 148/112 (124) 99 03/13/18 07:32 Nasal Cannula 2.0 28 03/13/18 07:32 99 Nasal Cannula 2.0 28 03/13/18 04:00 98.4 89 20 166/66 (99) 99 03/13/18 04:00 110 03/13/18 00:00 116 03/13/18 00:00 98.9 117 20 102/63 (76) 98 03/12/18 21:00 Nasal Cannula 2.0 03/12/18 21:00 116 03/12/18 20:00 98.8 116 20 98/59 (72) 98 03/12/18 19:54 Nasal Cannula 2.0 28 03/12/18 19:54 98 Nasal Cannula 2.0 28 03/12/18 16:00 98.3 84 20 112/66 (81) 98 03/12/18 15:18 121 Height (Feet): 5 Height (Inches): 3.00 Weight (Pounds): 164 Objective General Appearance: no apparent distress, alert, GCS 15, non-toxic, other - frail, elderly, chronically ill, contracted, non-verbal, Chronically Ill HEENT: normocephalic, atraumatic, bilateral eye normal inspection, bilateral eye PERRL Respiratory: chest non-tender, lungs clear, normal breath sounds, no respiratory distress, no retraction, no accessory muscle use, speaking full sentences Cardiovascular : no edema, tachycardia, systolic murmur, irregularly irregular Gastrointestinal: normal bowel sounds, non tender, soft, non-distended, no guarding, no rebound, other - colostomy bag in place. Musculoskeletal: back normal, gait/station normal, normal range of motion, non- tender Neurologic: alert, other - non-focal. Contracted, non-verbal Skin: no rash, warm/dry, well hydrated, other - Multiple DU Laboratory Tests Test 03/12/18 19:00 03/13/18 06:20 White Blood Count 13.0 K/UL (4.8-10.8) H 11.6 K/UL (4.8-10.8) H Red Blood Count 3.17 M/UL (4.20-5.40) L 3.10 M/UL (4.20-5.40) L Hemoglobin 9.6 G/DL (12.0-16.0) L 9.5 G/DL (12.0-16.0) L Hematocrit 28.5 % (37.0-47.0) L 28.1 % (37.0-47.0) L Mean Corpuscular Volume 90 FL (80-99) 91 FL (80-99) Mean Corpuscular Hemoglobin 30.3 PG (27.0-31.0) 30.6 PG (27.0-31.0) Mean Corpuscular Hemoglobin Concent 33.8 G/DL (32.0-36.0) 33.8 G/DL (32.0-36.0) Red Cell Distribution Width 12.9 % (11.6-14.8) 12.8 % (11.6-14.8) Platelet Count 167 K/UL (150-450) 164 K/UL (150-450) Mean Platelet Volume 6.0 FL (6.5-10.1) L 5.8 FL (6.5-10.1) L Neutrophils (%) (Auto) 77.3 % (45.0-75.0) H 75.9 % (45.0-75.0) H Lymphocytes (%) (Auto) 12.5 % (20.0-45.0) L 13.7 % (20.0-45.0) L Monocytes (%) (Auto) 9.0 % (1.0-10.0) 9.0 % (1.0-10.0) Eosinophils (%) (Auto) 0.6 % (0.0-3.0) 0.5 % (0.0-3.0) Basophils (%) (Auto) 0.7 % (0.0-2.0) 1.0 % (0.0-2.0) Sodium Level 136 MMOL/L (136-145) Potassium Level 4.4 MMOL/L (3.5-5.1) Chloride Level 102 MMOL/L (98-107) Carbon Dioxide Level 29 MMOL/L (21-32) Anion Gap 5 mmol/L (5-15) Blood Urea Nitrogen 9 mg/dL (7-18) Creatinine 0.5 MG/DL (0.55-1.30) L Estimat Glomerular Filtration Rate mL/min (>60) Glucose Level 170 MG/DL (74-106) H Calcium Level 8.4 MG/DL (8.5-10.1) L Total Bilirubin 0.2 MG/DL (0.2-1.0) Aspartate Amino Transf (AST/SGOT) 31 U/L (15-37) Alanine Aminotransferase (ALT/SGPT) 19 U/L (12-78) Alkaline Phosphatase 148 U/L (46-116) H Total Protein 4.9 G/DL (6.4-8.2) L Albumin 1.2 G/DL (3.4-5.0) L Globulin 3.7 g/dL Albumin/Globulin Ratio 0.3 (1.0-2.7) L Current Medications Medications (Trade) Dose Ordered Sig/Cele Route PRN Reason Start Time Stop Time Status Last Admin Dose Admin Acetaminophen (Tylenol) 650 mg Q4H PRN NG fever (temp>100.5F) 03/11/18 16:00 04/05/18 15:52 03/11/18 21:54 Al Hydroxide/Mg Hydroxide (Mylanta II) 30 ml Q6H PRN NG dyspepsia 03/11/18 16:00 04/05/18 15:52 Albuterol/ Ipratropium (Albuterol/ Ipratropium) 3 ml Q4H PRN HHN Shortness of Breath 03/11/18 17:15 03/16/18 17:14 Ascorbic Acid (Vitamin C) 500 mg TWICE A DAY NG 03/11/18 18:00 04/10/18 17:59 03/13/18 09:26 Atenolol (Tenormin) 25 mg DAILY NG 03/12/18 09:00 04/06/18 08:59 03/13/18 09:26 Cefepime HCl 2 gm/ Dextrose 110 ml @ 220 mls/hr DAILY IV 03/12/18 09:00 03/19/18 08:59 03/13/18 09:26 Dextrose/ Electrolytes 1,000 ml @ 50 mls/hr Q20H IV 03/11/18 16:00 04/09/18 17:10 03/13/18 09:25 Gabapentin (Neurontin) 300 mg THREE TIMES A DAY NG 03/11/18 18:00 04/05/18 17:59 03/13/18 13:00 Heparin Sodium (Porcine) (Heparin 5000 units/ml) 5,000 units EVERY 12 HOURS SUBQ 03/11/18 21:00 04/05/18 20:59 03/13/18 09:38 Nitroglycerin (Ntg) 0.4 mg Q5M PRN SL Prn Chest Pain 03/11/18 16:00 04/05/18 17:10 Olanzapine (ZyPREXA) 2.5 mg Q6H PRN NG agitation 03/11/18 16:00 04/07/18 15:53 Ondansetron HCl (Zofran) 4 mg Q6H PRN IVP Nausea & Vomiting 03/11/18 15:54 04/05/18 15:53 Polyethylene Glycol (Miralax) 17 gm DAILYPRN PRN NG Constipation 03/11/18 16:00 04/06/18 15:53 Promethazine HCl/ Codeine (Phenergan with Codeine) 5 ml Q4H PRN NG For Cough 03/11/18 17:15 04/05/18 17:11 Tamsulosin HCl (Flomax) 0.4 mg BEDTIME ORAL 03/11/18 21:00 04/05/18 20:59 03/12/18 20:46 Temazepam (Restoril) 15 mg HSPRN PRN ORAL Insomnia 03/11/18 17:15 03/14/18 17:11 Vancomycin HCl (Vanco rx to dose) 1 ea DAILY PRN MISC Per rx protocol 03/12/18 09:00 04/05/18 13:29 Vancomycin HCl 500 mg/Dextrose 110 ml @ 110 mls/hr Q12H IVPB 03/11/18 17:00 03/14/18 16:59 03/13/18 04:59 Zinc Sulfate (Zinc Sulfate) 220 mg DAILY NG 03/11/18 18:00 03/20/18 09:01 03/13/18 09:26 Sussy Daniel M.D. Mar 13, 2018 15:00
--- NOTE | 2018-03-13 15:14 | Internal Med Progress Note ---
Subjective Physician Name Davian Scott Attending Physician Davian Scott MD Current Medications Medications (Trade) Dose Ordered Sig/Cele Route PRN Reason Start Time Stop Time Status Last Admin Dose Admin Acetaminophen (Tylenol) 650 mg Q4H PRN NG fever (temp>100.5F) 03/11/18 16:00 04/05/18 15:52 03/11/18 21:54 Al Hydroxide/Mg Hydroxide (Mylanta II) 30 ml Q6H PRN NG dyspepsia 03/11/18 16:00 04/05/18 15:52 Albuterol/ Ipratropium (Albuterol/ Ipratropium) 3 ml Q4H PRN HHN Shortness of Breath 03/11/18 17:15 03/16/18 17:14 Ascorbic Acid (Vitamin C) 500 mg TWICE A DAY NG 03/11/18 18:00 04/10/18 17:59 03/13/18 09:26 Atenolol (Tenormin) 25 mg DAILY NG 03/12/18 09:00 04/06/18 08:59 03/13/18 09:26 Cefepime HCl 2 gm/ Dextrose 110 ml @ 220 mls/hr DAILY IV 03/12/18 09:00 03/19/18 08:59 03/13/18 09:26 Dextrose/ Electrolytes 1,000 ml @ 50 mls/hr Q20H IV 03/11/18 16:00 04/09/18 17:10 03/13/18 09:25 Gabapentin (Neurontin) 300 mg THREE TIMES A DAY NG 03/11/18 18:00 04/05/18 17:59 03/13/18 13:00 Heparin Sodium (Porcine) (Heparin 5000 units/ml) 5,000 units EVERY 12 HOURS SUBQ 03/11/18 21:00 04/05/18 20:59 03/13/18 09:38 Nitroglycerin (Ntg) 0.4 mg Q5M PRN SL Prn Chest Pain 03/11/18 16:00 04/05/18 17:10 Olanzapine (ZyPREXA) 2.5 mg Q6H PRN NG agitation 03/11/18 16:00 04/07/18 15:53 Ondansetron HCl (Zofran) 4 mg Q6H PRN IVP Nausea & Vomiting 03/11/18 15:54 04/05/18 15:53 Polyethylene Glycol (Miralax) 17 gm DAILYPRN PRN NG Constipation 03/11/18 16:00 04/06/18 15:53 Promethazine HCl/ Codeine (Phenergan with Codeine) 5 ml Q4H PRN NG For Cough 03/11/18 17:15 04/05/18 17:11 Tamsulosin HCl (Flomax) 0.4 mg BEDTIME ORAL 03/11/18 21:00 04/05/18 20:59 03/12/18 20:46 Temazepam (Restoril) 15 mg HSPRN PRN ORAL Insomnia 03/11/18 17:15 03/14/18 17:11 Zinc Sulfate (Zinc Sulfate) 220 mg DAILY NG 03/11/18 18:00 03/20/18 09:01 03/13/18 09:26 Allergies: Coded Allergies: No Known Allergies (Unverified , 03/06/18) Subjective awake, more responsive, open eyes, not verbal, NAD. Objective Last Vital Signs Date Time Temp Pulse Resp B/P (MAP) Pulse Ox O2 Delivery O2 Flow Rate FiO2 03/13/18 12:00 97.8 111 18 99/55 (70) 98 03/13/18 09:00 Nasal Cannula 2.0 03/13/18 07:32 28 Laboratory Tests Test 03/12/18 19:00 03/13/18 06:20 White Blood Count 13.0 K/UL (4.8-10.8) H 11.6 K/UL (4.8-10.8) H Red Blood Count 3.17 M/UL (4.20-5.40) L 3.10 M/UL (4.20-5.40) L Hemoglobin 9.6 G/DL (12.0-16.0) L 9.5 G/DL (12.0-16.0) L Hematocrit 28.5 % (37.0-47.0) L 28.1 % (37.0-47.0) L Mean Corpuscular Volume 90 FL (80-99) 91 FL (80-99) Mean Corpuscular Hemoglobin 30.3 PG (27.0-31.0) 30.6 PG (27.0-31.0) Mean Corpuscular Hemoglobin Concent 33.8 G/DL (32.0-36.0) 33.8 G/DL (32.0-36.0) Red Cell Distribution Width 12.9 % (11.6-14.8) 12.8 % (11.6-14.8) Platelet Count 167 K/UL (150-450) 164 K/UL (150-450) Mean Platelet Volume 6.0 FL (6.5-10.1) L 5.8 FL (6.5-10.1) L Neutrophils (%) (Auto) 77.3 % (45.0-75.0) H 75.9 % (45.0-75.0) H Lymphocytes (%) (Auto) 12.5 % (20.0-45.0) L 13.7 % (20.0-45.0) L Monocytes (%) (Auto) 9.0 % (1.0-10.0) 9.0 % (1.0-10.0) Eosinophils (%) (Auto) 0.6 % (0.0-3.0) 0.5 % (0.0-3.0) Basophils (%) (Auto) 0.7 % (0.0-2.0) 1.0 % (0.0-2.0) Sodium Level 136 MMOL/L (136-145) Potassium Level 4.4 MMOL/L (3.5-5.1) Chloride Level 102 MMOL/L (98-107) Carbon Dioxide Level 29 MMOL/L (21-32) Anion Gap 5 mmol/L (5-15) Blood Urea Nitrogen 9 mg/dL (7-18) Creatinine 0.5 MG/DL (0.55-1.30) L Estimat Glomerular Filtration Rate mL/min (>60) Glucose Level 170 MG/DL (74-106) H Calcium Level 8.4 MG/DL (8.5-10.1) L Total Bilirubin 0.2 MG/DL (0.2-1.0) Aspartate Amino Transf (AST/SGOT) 31 U/L (15-37) Alanine Aminotransferase (ALT/SGPT) 19 U/L (12-78) Alkaline Phosphatase 148 U/L (46-116) H Total Protein 4.9 G/DL (6.4-8.2) L Albumin 1.2 G/DL (3.4-5.0) L Globulin 3.7 g/dL Albumin/Globulin Ratio 0.3 (1.0-2.7) L Intake and Output 03/12/18 03/13/18 19:00 07:00 Intake Total 1529.1667 ml 2580 ml Output Total 550 ml 2300 ml Balance 979.1667 ml 280 ml Intake Free Water 90 ml 1200 ml IV Total 819.1667 ml 660 ml Tube Feeding 620 ml 720 ml Output Urine Total 250 ml 2000 ml Stool Total 300 ml 300 ml # Voids 1 # Bowel Movements 1 Objective General: No acute distress, awake and open eyes HEENT: NCAT, sclera anicteric, PERRL, NG Tube Neck: Supple, no significant jugular venous distention, Lungs: fair inspiratory effort, Decrease air at bases, no Wheeze or Rales. Heart: Regular rate and rhythm, normal S1/S2, no murmur, Abdomen: soft, nontender, nondistended. Normoactive bowel sounds. : Saravia cath Extremities: No Cyanosis , clubbing or edema. Neuro: A&O x 1, Limited due to patient status, Functional Quadriplegia Skin: warm, no rashes, Assessment/Plan Assessment/Plan Sepsis due to UTI Bacteremia Probability early PNA Functional Quadriplegia. HTN Afib dysphagia HLD Dementia All extremities contracture Multiple Decubitus Ulcer Plan: Abx: Cefepime and Vanco IV Tube feeding @ 60 cc/hr Full code heparin SQ F/U with labs and cultures. F/U with GI recommendations: PEG to be scheduled tomorrow, discussed with bioethics. -NPO at midnight Called son left message no respond yet. Davian Scott MD Mar 13, 2018 15:14
[2018-03-13 16:00] VITALS: BP 102/59
[2018-03-13] MEDS ORDERED: Sterile Water Irrig 1000ml IRRIG ONE (16:08)
--- NOTE | 2018-03-13 16:58 | Pulmonology Progress Note ---
Assessment/Plan Assessment/Plan Pulmonary Progress Note HPI This patient is brought in by EMS. Per report, the patient has had failure to thrive and generalized weakness. They also note hematuria. The patient is nonverbal and unable to articulate any complaints. She has also stopped eating per the medical record and nursing notes. There is no other history of present illness available or documented. Allergies: No Known Allergies Past Medical History: HTN, AFib, dementia, HL psych hx, other - contractures, DU, muscle wasting, previous G tube Social History: Denies: smoking, alcohol use, drug use All Other Systems: limited Physical Exam Vital Signs Noted General Appearance: no apparent distress, alert, GCS 15, non-toxic, other - frail, elderly, chronically ill, contracted, non-verbal, Chronically Ill Head: normocephalic, atraumatic Eyes: bilateral eye normal inspection, bilateral eye PERRL ENT: no angioedema Neck: other - flexed. contracted. Respiratory: chest non-tender, lungs clear, normal breath sounds, no respiratory distress, no retraction, no accessory muscle use, speaking full sentences Cardiovascular #1: no edema, tachycardia, systolic murmur, irregularly irregular Gastrointestinal: normal bowel sounds, non tender, soft, non-distended, no guarding, no rebound, other - colostomy bag in place. Rectal: deferred Musculoskeletal: back normal, gait/station normal, normal range of motion, non- tender Neurologic: alert, other - non-focal. Contracted, non-verbal Psychiatric: mood/affect normal Skin: no rash, warm/dry, well hydrated, other - Multiple DU Impression: Pyelonephritis Sepsis Pneumonia Hypernatremia Lactic acid acidosis HTN, AFib, Dementia, HL psych hx, other - contractures, DU, muscle wasting, previous G tube Plan IV Antibiotics O2 PRN PPX IVF PTAmeds Aspiration precautions Laboratory Tests Test 03/06/18 10:12 03/06/18 10:25 03/06/18 10:47 White Blood Count 15.7 K/UL (4.8-10.8) H Red Blood Count 4.60 M/UL (4.20-5.40) Hemoglobin 13.3 G/DL (12.0-16.0) Hematocrit 42.1 % (37.0-47.0) Mean Corpuscular Volume 91 FL (80-99) Mean Corpuscular Hemoglobin 28.9 PG (27.0-31.0) Mean Corpuscular Hemoglobin Concent 31.7 G/DL (32.0-36.0) L Red Cell Distribution Width 13.3 % (11.6-14.8) Platelet Count 246 K/UL (150-450) Mean Platelet Volume 5.4 FL (6.5-10.1) L Neutrophils (%) (Auto) 77.5 % (45.0-75.0) H Lymphocytes (%) (Auto) 13.9 % (20.0-45.0) L Monocytes (%) (Auto) 8.1 % (1.0-10.0) Eosinophils (%) (Auto) 0.1 % (0.0-3.0) Basophils (%) (Auto) 0.4 % (0.0-2.0) Prothrombin Time 12.4 SEC (9.30-11.50) H Prothrombin Time INR 1.2 (0.9-1.1) H PTT 29 SEC (23-33) Sodium Level 147 MMOL/L (136-145) H Potassium Level 4.8 MMOL/L (3.5-5.1) Chloride Level 108 MMOL/L (98-107) H Carbon Dioxide Level 30 MMOL/L (21-32) Anion Gap 9 mmol/L (5-15) Blood Urea Nitrogen 18 mg/dL (7-18) Creatinine 0.8 MG/DL (0.55-1.30) Estimate Glomerular Filtration Rate mL/min (>60) Glucose Level 114 MG/DL (74-106) H Lactic Acid Level 3.60 mmol/L (0.4-2.0) H Calcium Level 9.1 MG/DL (8.5-10.1) Phosphorus Level 3.2 MG/DL (2.5-4.9) Magnesium Level 1.9 MG/DL (1.8-2.4) Total Bilirubin 0.6 MG/DL (0.2-1.0) Aspartate Amino Transferase (AST) 27 U/L (15-37) Alanine Aminotransferase (ALT) 16 U/L (12-78) Alkaline Phosphatase 128 U/L (46-116) H Total Creatine Kinase 59 U/L (26-308) Creatine Kinase MB 1.6 NG/ML (0.0-3.6) Creatine Kinase MB Relative Index 2.7 Total Protein 6.7 G/DL (6.4-8.2) Albumin 2.1 G/DL (3.4-5.0) L Globulin 4.6 g/dL Albumin/Globulin Ratio 0.5 (1.0-2.7) L Troponin I 0.033 ng/mL (0.000-0.056) Urine Color Yellow Urine Appearance Cloudy Urine pH 6 (4.5-8.0) Urine Specific [place] 1.020 (1.005-1.035) Urine Protein 4+ (NEGATIVE) H Urine Glucose (UA) Negative (NEGATIVE) Urine Ketones 3+ (NEGATIVE) H Urine Blood 5+ (NEGATIVE) H Urine Nitrite Negative (NEGATIVE) Urine Bilirubin 1+ (NEGATIVE) H Urine Ictotest Negative (NEGATIVE) Urine Urobilinogen Normal MG/DL (0.0-1.0) Urine Leukocyte Esterase 3+ (NEGATIVE) H Urine RBC 30-40 /HPF (0 - 2) H Urine WBC Tntc /HPF (0 - 2) H Urine Squamous Epithelial Cells Few /LPF (NONE/OCC) Urine Bacteria Few /HPF (NONE) Microbiology Date/Time Source Procedure Growth Status 03/06/18 10:12 Nasal Nares Influenza Types A,B Antigen (NGA) - Final Complete EKG Diagnostic Results Rate: tachycardiac Rhythm: other - S.tachycardia ST Segments: no acute changes Chest X-Ray Diagnostic Results Chest X-Ray Diagnostic Results : Chest X-Ray Ordered: Yes # of Views/Limited/Complete: 1 View Indication: Other EP Interpretation: No Interpretation: other - Questionable opacity RUL Impression: Other - See above Electronically Signed by: Halima Chery DO Subjective ROS Limited/Unobtainable: No Allergies: Coded Allergies: No Known Allergies (Unverified , 03/06/18) Objective Last 24 Hour Vital Signs Date Time Temp Pulse Resp B/P (MAP) Pulse Ox O2 Delivery O2 Flow Rate FiO2 03/13/18 12:00 97.8 111 18 99/55 (70) 98 03/13/18 09:26 139 148/112 03/13/18 09:00 Nasal Cannula 2.0 03/13/18 08:00 98.4 139 18 148/112 (124) 99 03/13/18 07:32 Nasal Cannula 2.0 28 03/13/18 07:32 99 Nasal Cannula 2.0 28 03/13/18 04:00 98.4 89 20 166/66 (99) 99 03/13/18 04:00 110 03/13/18 00:00 116 03/13/18 00:00 98.9 117 20 102/63 (76) 98 03/12/18 21:00 Nasal Cannula 2.0 03/12/18 21:00 116 03/12/18 20:00 98.8 116 20 98/59 (72) 98 03/12/18 19:54 Nasal Cannula 2.0 28 03/12/18 19:54 98 Nasal Cannula 2.0 28 Intake and Output 03/12/18 03/13/18 19:00 07:00 Intake Total 1529.1667 ml 2580 ml Output Total 550 ml 2300 ml Balance 979.1667 ml 280 ml Intake Free Water 90 ml 1200 ml IV Total 819.1667 ml 660 ml Tube Feeding 620 ml 720 ml Output Urine Total 250 ml 2000 ml Stool Total 300 ml 300 ml # Voids 1 # Bowel Movements 1 Laboratory Tests 03/12/18 19:00: White Blood Count 13.0H, Red Blood Count 3.17L, Hemoglobin 9.6L, Hematocrit 28.5L, Mean Corpuscular Volume 90, Mean Corpuscular Hemoglobin 30.3, Mean Corpuscular Hemoglobin Concent 33.8, Red Cell Distribution Width 12.9, Platelet Count 167, Mean Platelet Volume 6.0L, Neutrophils (%) (Auto) 77.3H, Lymphocytes (%) (Auto) 12.5L, Monocytes (%) (Auto) 9.0, Eosinophils (%) (Auto) 0.6, Basophils (%) (Auto) 0.7 03/13/18 06:20: White Blood Count 11.6H, Red Blood Count 3.10L, Hemoglobin 9.5L, Hematocrit 28.1L, Mean Corpuscular Volume 91, Mean Corpuscular Hemoglobin 30.6, Mean Corpuscular Hemoglobin Concent 33.8, Red Cell Distribution Width 12.8, Platelet Count 164, Mean Platelet Volume 5.8L, Neutrophils (%) (Auto) 75.9H, Lymphocytes (%) (Auto) 13.7L, Monocytes (%) (Auto) 9.0, Eosinophils (%) (Auto) 0.5, Basophils (%) (Auto) 1.0, Sodium Level 136, Potassium Level 4.4, Chloride Level 102, Carbon Dioxide Level 29, Anion Gap 5, Blood Urea Nitrogen 9, Creatinine 0.5L, Estimat Glomerular Filtration Rate , Glucose Level 170H, Calcium Level 8.4L, Total Bilirubin 0.2, Aspartate Amino Transf (AST/SGOT) 31, Alanine Aminotransferase (ALT/SGPT) 19, Alkaline Phosphatase 148H, Total Protein 4.9L, Albumin 1.2L, Globulin 3.7, Albumin/Globulin Ratio 0.3L Current Medications Medications (Trade) Dose Ordered Sig/Cele Route PRN Reason Start Time Stop Time Status Last Admin Dose Admin Acetaminophen (Tylenol) 650 mg Q4H PRN NG fever (temp>100.5F) 03/11/18 16:00 04/05/18 15:52 03/11/18 21:54 Al Hydroxide/Mg Hydroxide (Mylanta II) 30 ml Q6H PRN NG dyspepsia 03/11/18 16:00 04/05/18 15:52 Albuterol/ Ipratropium (Albuterol/ Ipratropium) 3 ml Q4H PRN HHN Shortness of Breath 03/11/18 17:15 03/16/18 17:14 Ascorbic Acid (Vitamin C) 500 mg TWICE A DAY NG 03/11/18 18:00 04/10/18 17:59 03/13/18 09:26 Atenolol (Tenormin) 25 mg DAILY NG 03/12/18 09:00 04/06/18 08:59 03/13/18 09:26 Cefepime HCl 2 gm/ Dextrose 110 ml @ 220 mls/hr DAILY IV 03/12/18 09:00 03/19/18 08:59 03/13/18 09:26 Dextrose/ Electrolytes 1,000 ml @ 50 mls/hr Q20H IV 03/11/18 16:00 04/09/18 17:10 03/13/18 09:25 Gabapentin (Neurontin) 300 mg THREE TIMES A DAY NG 03/11/18 18:00 04/05/18 17:59 03/13/18 13:00 Heparin Sodium (Porcine) (Heparin 5000 units/ml) 5,000 units EVERY 12 HOURS SUBQ 03/11/18 21:00 04/05/18 20:59 03/13/18 09:38 Nitroglycerin (Ntg) 0.4 mg Q5M PRN SL Prn Chest Pain 03/11/18 16:00 04/05/18 17:10 Olanzapine (ZyPREXA) 2.5 mg Q6H PRN NG agitation 03/11/18 16:00 04/07/18 15:53 Ondansetron HCl (Zofran) 4 mg Q6H PRN IVP Nausea & Vomiting 03/11/18 15:54 04/05/18 15:53 Polyethylene Glycol (Miralax) 17 gm DAILYPRN PRN NG Constipation 03/11/18 16:00 04/06/18 15:53 Promethazine HCl/ Codeine (Phenergan with Codeine) 5 ml Q4H PRN NG For Cough 03/11/18 17:15 04/05/18 17:11 Tamsulosin HCl (Flomax) 0.4 mg BEDTIME ORAL 03/11/18 21:00 04/05/18 20:59 03/12/18 20:46 Temazepam (Restoril) 15 mg HSPRN PRN ORAL Insomnia 03/11/18 17:15 03/14/18 17:11 Zinc Sulfate (Zinc Sulfate) 220 mg DAILY NG 03/11/18 18:00 03/20/18 09:01 03/13/18 09:26 Pacheco Baez MD Mar 13, 2018 16:58
--- NOTE | 2018-03-13 17:07 | Diagnostic Imaging Report ---
APPROVED REPORT CPT Code: 55875 Present Symptoms Comments: Swelling of the right upper arm RIGHT UPPER EXTREMITY: Venous imaging reveals patency of the internal jugular, subclavian, axillary and brachial veins. The cephalic and basilic veins are also patent. Doppler indicates normal spontaneous flow within these venous segments.
[2018-03-13 20:00] VITALS: BP 105/61
[2018-03-13] MEDS: Tamsulosin 0.4mg cap ORAL SCH (22:12)
[2018-03-14] VITALS: BP 111/78
[2018-03-14 04:00] VITALS: BP 109/50
[2018-03-14] MEDS: D5 1/2NS w/KCL 10meq 1,000 ML IV SCH ×2 (04:00→15:53)
[2018-03-14 08:00] VITALS: BP 108/59
--- NOTE | 2018-03-14 08:04 | Infectious Diseases Prog Note ---
Assessment/Plan Assessment/Plan Sepsis, improving- 2ry to UTI c/w bacteremia and prob early PNA -u/a wbc tntc, nit neg, luek +3; ucx >100k PsA (R cipro/levo, otherwise S), E. fecalis (S Amp, vanco) -03/06 Bcx 4/4 P.mirabiis (R cipro, I Levo; otherwise S), 1/ MRSE ( contaminant); 03/07 Neg -CXR: Subtle patchy opacities in the right upper lung raising question for developing pneumonia. Clinical correlation/follow-up recommended. -influenza sc neg -sp cx MRSA, C. albicans (Colonizer) Low grade fever, SP Leukocytosis, recurrent mild. SP FTT HTN Afib dysphagia HLD Dementia contractures Plan: -Continue Cefepime #11/29 for Proteus bacteremia and PsA UTI -If recurrent fevers, WBC, will obtain CT abd/p -03/13 SP IV Vancomycin #7 -03/06 SP Meropenem x1 -f/u legionella ag urine -Monitor CBC/CMP, temperatures -aspiration precautions Subjective Allergies: Coded Allergies: No Known Allergies (Unverified , 03/06/18) Subjective Patient remains afebrile Leukocytosis improving Not following but opens eyes to voice Objective Vital Signs Last 24 Hour Vital Signs Date Time Temp Pulse Resp B/P (MAP) Pulse Ox O2 Delivery O2 Flow Rate FiO2 03/14/18 04:00 73 03/14/18 04:00 96.6 92 18 109/50 (69) 93 03/14/18 00:00 81 03/14/18 00:00 97.9 87 18 111/78 (89) 94 03/13/18 21:00 Nasal Cannula 2.0 03/13/18 20:27 98 Nasal Cannula 2.0 28 03/13/18 20:27 Nasal Cannula 2.0 28 03/13/18 20:00 97.7 99 18 105/61 (76) 95 03/13/18 20:00 88 03/13/18 16:00 98.1 100 18 102/59 (73) 98 03/13/18 16:00 96 03/13/18 12:00 97.8 111 18 99/55 (70) 98 03/13/18 12:00 108 03/13/18 09:26 139 148/112 03/13/18 09:00 Nasal Cannula 2.0 Height (Feet): 5 Height (Inches): 3.00 Weight (Pounds): 164 Objective General Appearance: no apparent distress, alert, contracted, non-verbal, Chronically Ill HEENT: normocephalic, atraumatic, MMM Respiratory: CTAB, No W Cardiovascular : tachycardia, systolic murmur, irregularly irregular Gastrointestinal: soft, non-distended, colostomy bag in place. Neurologic: alert, non-verbal Skin: no rash, warm/dry, well hydrated, other - Multiple DU Current Medications Medications (Trade) Dose Ordered Sig/Cele Route PRN Reason Start Time Stop Time Status Last Admin Dose Admin Acetaminophen (Tylenol) 650 mg Q4H PRN NG fever (temp>100.5F) 03/11/18 16:00 04/05/18 15:52 03/11/18 21:54 Al Hydroxide/Mg Hydroxide (Mylanta II) 30 ml Q6H PRN NG dyspepsia 03/11/18 16:00 04/05/18 15:52 Albuterol/ Ipratropium (Albuterol/ Ipratropium) 3 ml Q4H PRN HHN Shortness of Breath 03/11/18 17:15 03/16/18 17:14 Ascorbic Acid (Vitamin C) 500 mg TWICE A DAY NG 03/11/18 18:00 04/10/18 17:59 03/13/18 18:05 Atenolol (Tenormin) 25 mg DAILY NG 03/12/18 09:00 04/06/18 08:59 03/13/18 09:26 Cefepime HCl 2 gm/ Dextrose 110 ml @ 220 mls/hr DAILY IV 03/12/18 09:00 03/19/18 08:59 03/13/18 09:26 Dextrose/ Electrolytes 1,000 ml @ 50 mls/hr Q20H IV 03/11/18 16:00 04/09/18 17:10 03/13/18 09:25 Gabapentin (Neurontin) 300 mg THREE TIMES A DAY NG 03/11/18 18:00 04/05/18 17:59 03/13/18 18:05 Heparin Sodium (Porcine) (Heparin 5000 units/ml) 5,000 units EVERY 12 HOURS SUBQ 03/11/18 21:00 04/05/18 20:59 03/13/18 22:12 Nitroglycerin (Ntg) 0.4 mg Q5M PRN SL Prn Chest Pain 03/11/18 16:00 04/05/18 17:10 Olanzapine (ZyPREXA) 2.5 mg Q6H PRN NG agitation 03/11/18 16:00 04/07/18 15:53 Ondansetron HCl (Zofran) 4 mg Q6H PRN IVP Nausea & Vomiting 03/11/18 15:54 04/05/18 15:53 Polyethylene Glycol (Miralax) 17 gm DAILYPRN PRN NG Constipation 03/11/18 16:00 04/06/18 15:53 Promethazine HCl/ Codeine (Phenergan with Codeine) 5 ml Q4H PRN NG For Cough 03/11/18 17:15 04/05/18 17:11 Tamsulosin HCl (Flomax) 0.4 mg BEDTIME ORAL 03/11/18 21:00 04/05/18 20:59 03/13/18 22:12 Temazepam (Restoril) 15 mg HSPRN PRN ORAL Insomnia 03/11/18 17:15 03/14/18 17:11 Zinc Sulfate (Zinc Sulfate) 220 mg DAILY NG 03/11/18 18:00 03/20/18 09:01 03/13/18 09:26 Pacheco Umana MD Mar 14, 2018 08:04
[2018-03-14] MEDS: Cefepime HCl 2 GM in D5W 110 ML IV SCH (09:00)
[2018-03-14 09:19] LABS: BASOPHILS % (AUTO) 0.8 % (0.0-2.0); EOSINOPHILS % (AUTO) 0.4 % (0.0-3.0); HEMATOCRIT 27.1 % (37.0-47.0); HEMOGLOBIN 9.1 G/DL (12.0-16.0); LYMPHOCYTES % (AUTO) 8.6 % (20.0-45.0); MEAN CORPUSCULAR VOLUME 90 FL (80-99); MONOCYTES % (AUTO) 10.4 % (1.0-10.0); NEUTROPHILS % (AUTO) 79.8 % (45.0-75.0); PLATELET COUNT 202 K/UL (150-450); RED CELL DISTRIBUTION WIDTH 13.3 % (11.6-14.8); WHITE BLOOD COUNT 12.7 K/UL (4.8-10.8)
[2018-03-14] MEDS: Zinc Sulfate 220mg cap NG SCH (09:20)
[2018-03-14] MEDS: Ascorbic Acid 500mg tab NG SCH ×2 (09:21→17:28)
[2018-03-14] MEDS: Atenolol 25mg tab NG SCH (09:21)
[2018-03-14] MEDS: Heparin 5000 units/ml inj SUBQ SCH ×2 (09:22→20:18)
[2018-03-14 09:28] LABS: INR 1.1 (0.9-1.1)
[2018-03-14 09:35] LABS: ANION GAP 5 mmol/L (5-15); BLOOD UREA NITROGEN 9 mg/dL (7-18); CALCIUM 8.3 MG/DL (8.5-10.1); CARBON DIOXIDE 29 MMOL/L (21-32); CHLORIDE 103 MMOL/L (98-107); CREATININE 0.4 MG/DL (0.55-1.30); POTASSIUM 3.7 MMOL/L (3.5-5.1); SODIUM 137 MMOL/L (136-145)
--- NOTE | 2018-03-14 10:30 | Pulmonology Progress Note ---
Assessment/Plan Assessment/Plan Pulmonary Progress Note HPI This patient is brought in by EMS. Per report, the patient has had failure to thrive and generalized weakness. They also note hematuria. The patient is nonverbal and unable to articulate any complaints. She has also stopped eating per the medical record and nursing notes. There is no other history of present illness available or documented. No overnight issues Allergies: No Known Allergies Past Medical History: HTN, AFib, dementia, HL psych hx, other - contractures, DU, muscle wasting, previous G tube Social History: Denies: smoking, alcohol use, drug use All Other Systems: limited Physical Exam Vital Signs Noted General Appearance: no apparent distress, alert, GCS 15, non-toxic, other - frail, elderly, chronically ill, contracted, non-verbal, Chronically Ill Head: normocephalic, atraumatic Eyes: bilateral eye normal inspection, bilateral eye PERRL ENT: no angioedema Neck: other - flexed. contracted. Respiratory: chest non-tender, lungs clear, normal breath sounds, no respiratory distress, no retraction, no accessory muscle use, speaking full sentences Cardiovascular #1: no edema, tachycardia, systolic murmur, irregularly irregular Gastrointestinal: normal bowel sounds, non tender, soft, non-distended, no guarding, no rebound, other - colostomy bag in place. Rectal: deferred Musculoskeletal: back normal, gait/station normal, normal range of motion, non- tender Neurologic: alert, other - non-focal. Contracted, non-verbal Psychiatric: mood/affect normal Skin: no rash, warm/dry, well hydrated, other - Multiple DU Impression: Pyelonephritis Sepsis Pneumonia Hypernatremia Lactic acid acidosis HTN, AFib, Dementia, HL psych hx, other - contractures, DU, muscle wasting, previous G tube Plan IV Antibiotics O2 PRN PPX IVF PTAmeds Aspiration precautions Laboratory Tests Test 03/06/18 10:12 03/06/18 10:25 03/06/18 10:47 White Blood Count 15.7 K/UL (4.8-10.8) H Red Blood Count 4.60 M/UL (4.20-5.40) Hemoglobin 13.3 G/DL (12.0-16.0) Hematocrit 42.1 % (37.0-47.0) Mean Corpuscular Volume 91 FL (80-99) Mean Corpuscular Hemoglobin 28.9 PG (27.0-31.0) Mean Corpuscular Hemoglobin Concent 31.7 G/DL (32.0-36.0) L Red Cell Distribution Width 13.3 % (11.6-14.8) Platelet Count 246 K/UL (150-450) Mean Platelet Volume 5.4 FL (6.5-10.1) L Neutrophils (%) (Auto) 77.5 % (45.0-75.0) H Lymphocytes (%) (Auto) 13.9 % (20.0-45.0) L Monocytes (%) (Auto) 8.1 % (1.0-10.0) Eosinophils (%) (Auto) 0.1 % (0.0-3.0) Basophils (%) (Auto) 0.4 % (0.0-2.0) Prothrombin Time 12.4 SEC (9.30-11.50) H Prothrombin Time INR 1.2 (0.9-1.1) H PTT 29 SEC (23-33) Sodium Level 147 MMOL/L (136-145) H Potassium Level 4.8 MMOL/L (3.5-5.1) Chloride Level 108 MMOL/L (98-107) H Carbon Dioxide Level 30 MMOL/L (21-32) Anion Gap 9 mmol/L (5-15) Blood Urea Nitrogen 18 mg/dL (7-18) Creatinine 0.8 MG/DL (0.55-1.30) Estimate Glomerular Filtration Rate mL/min (>60) Glucose Level 114 MG/DL (74-106) H Lactic Acid Level 3.60 mmol/L (0.4-2.0) H Calcium Level 9.1 MG/DL (8.5-10.1) Phosphorus Level 3.2 MG/DL (2.5-4.9) Magnesium Level 1.9 MG/DL (1.8-2.4) Total Bilirubin 0.6 MG/DL (0.2-1.0) Aspartate Amino Transferase (AST) 27 U/L (15-37) Alanine Aminotransferase (ALT) 16 U/L (12-78) Alkaline Phosphatase 128 U/L (46-116) H Total Creatine Kinase 59 U/L (26-308) Creatine Kinase MB 1.6 NG/ML (0.0-3.6) Creatine Kinase MB Relative Index 2.7 Total Protein 6.7 G/DL (6.4-8.2) Albumin 2.1 G/DL (3.4-5.0) L Globulin 4.6 g/dL Albumin/Globulin Ratio 0.5 (1.0-2.7) L Troponin I 0.033 ng/mL (0.000-0.056) Urine Color Yellow Urine Appearance Cloudy Urine pH 6 (4.5-8.0) Urine Specific [place] 1.020 (1.005-1.035) Urine Protein 4+ (NEGATIVE) H Urine Glucose (UA) Negative (NEGATIVE) Urine Ketones 3+ (NEGATIVE) H Urine Blood 5+ (NEGATIVE) H Urine Nitrite Negative (NEGATIVE) Urine Bilirubin 1+ (NEGATIVE) H Urine Ictotest Negative (NEGATIVE) Urine Urobilinogen Normal MG/DL (0.0-1.0) Urine Leukocyte Esterase 3+ (NEGATIVE) H Urine RBC 30-40 /HPF (0 - 2) H Urine WBC Tntc /HPF (0 - 2) H Urine Squamous Epithelial Cells Few /LPF (NONE/OCC) Urine Bacteria Few /HPF (NONE) Microbiology Date/Time Source Procedure Growth Status 03/06/18 10:12 Nasal Nares Influenza Types A,B Antigen (NGA) - Final Complete EKG Diagnostic Results Rate: tachycardiac Rhythm: other - S.tachycardia ST Segments: no acute changes Chest X-Ray Diagnostic Results Chest X-Ray Diagnostic Results : Chest X-Ray Ordered: Yes # of Views/Limited/Complete: 1 View Indication: Other EP Interpretation: No Interpretation: other - Questionable opacity RUL Impression: Other - See above Electronically Signed by: Halima Chery DO Subjective ROS Limited/Unobtainable: No Allergies: Coded Allergies: No Known Allergies (Unverified , 03/06/18) Objective Last 24 Hour Vital Signs Date Time Temp Pulse Resp B/P (MAP) Pulse Ox O2 Delivery O2 Flow Rate FiO2 03/14/18 09:21 94 108/59 03/14/18 08:00 98.2 94 20 108/59 (75) 92 03/14/18 04:00 73 03/14/18 04:00 96.6 92 18 109/50 (69) 93 03/14/18 00:00 81 03/14/18 00:00 97.9 87 18 111/78 (89) 94 03/13/18 21:00 Nasal Cannula 2.0 03/13/18 20:27 98 Nasal Cannula 2.0 28 03/13/18 20:27 Nasal Cannula 2.0 28 03/13/18 20:00 97.7 99 18 105/61 (76) 95 03/13/18 20:00 88 03/13/18 16:00 98.1 100 18 102/59 (73) 98 03/13/18 16:00 96 03/13/18 12:00 97.8 111 18 99/55 (70) 98 03/13/18 12:00 108 Intake and Output 03/13/18 03/14/18 19:00 07:00 Intake Total 60 ml 560 ml Output Total 640 ml 875 ml Balance -580 ml -315 ml Intake Free Water 300 ml Tube Feeding 60 ml 260 ml Output Urine Total 640 ml 875 ml Laboratory Tests 03/14/18 08:50: White Blood Count 12.7H, Red Blood Count 3.00L, Hemoglobin 9.1L, Hematocrit 27.1L, Mean Corpuscular Volume 90, Mean Corpuscular Hemoglobin 30.2, Mean Corpuscular Hemoglobin Concent 33.5, Red Cell Distribution Width 13.3, Platelet Count 202, Mean Platelet Volume 5.5L, Neutrophils (%) (Auto) 79.8H, Lymphocytes (%) (Auto) 8.6L, Monocytes (%) (Auto) 10.4H, Eosinophils (%) (Auto) 0.4, Basophils (%) (Auto) 0.8, Prothrombin Time 11.4, Prothromb Time International Ratio 1.1, Activated Partial Thromboplast Time 33, Sodium Level 137, Potassium Level 3.7, Chloride Level 103, Carbon Dioxide Level 29, Anion Gap 5, Blood Urea Nitrogen 9, Creatinine 0.4L, Estimat Glomerular Filtration Rate , Glucose Level 95, Calcium Level 8.3L, Magnesium Level 1.6L Current Medications Medications (Trade) Dose Ordered Sig/Cele Route PRN Reason Start Time Stop Time Status Last Admin Dose Admin Acetaminophen (Tylenol) 650 mg Q4H PRN NG fever (temp>100.5F) 03/11/18 16:00 04/05/18 15:52 03/11/18 21:54 Al Hydroxide/Mg Hydroxide (Mylanta II) 30 ml Q6H PRN NG dyspepsia 03/11/18 16:00 04/05/18 15:52 Albuterol/ Ipratropium (Albuterol/ Ipratropium) 3 ml Q4H PRN HHN Shortness of Breath 03/11/18 17:15 03/16/18 17:14 Ascorbic Acid (Vitamin C) 500 mg TWICE A DAY NG 03/11/18 18:00 04/10/18 17:59 03/14/18 09:21 Atenolol (Tenormin) 25 mg DAILY NG 03/12/18 09:00 04/06/18 08:59 03/14/18 09:21 Cefepime HCl 2 gm/ Dextrose 110 ml @ 220 mls/hr DAILY IV 03/12/18 09:00 03/19/18 08:59 03/13/18 09:26 Dextrose/ Electrolytes 1,000 ml @ 50 mls/hr Q20H IV 03/11/18 16:00 04/09/18 17:10 03/13/18 09:25 Gabapentin (Neurontin) 300 mg THREE TIMES A DAY NG 03/11/18 18:00 04/05/18 17:59 03/14/18 09:20 Heparin Sodium (Porcine) (Heparin 5000 units/ml) 5,000 units EVERY 12 HOURS SUBQ 03/11/18 21:00 04/05/18 20:59 03/14/18 09:22 Nitroglycerin (Ntg) 0.4 mg Q5M PRN SL Prn Chest Pain 03/11/18 16:00 04/05/18 17:10 Olanzapine (ZyPREXA) 2.5 mg Q6H PRN NG agitation 03/11/18 16:00 04/07/18 15:53 Ondansetron HCl (Zofran) 4 mg Q6H PRN IVP Nausea & Vomiting 03/11/18 15:54 04/05/18 15:53 Polyethylene Glycol (Miralax) 17 gm DAILYPRN PRN NG Constipation 03/11/18 16:00 04/06/18 15:53 Promethazine HCl/ Codeine (Phenergan with Codeine) 5 ml Q4H PRN NG For Cough 03/11/18 17:15 04/05/18 17:11 Tamsulosin HCl (Flomax) 0.4 mg BEDTIME ORAL 03/11/18 21:00 04/05/18 20:59 03/13/18 22:12 Temazepam (Restoril) 15 mg HSPRN PRN ORAL Insomnia 03/11/18 17:15 03/14/18 17:11 Zinc Sulfate (Zinc Sulfate) 220 mg DAILY NG 03/11/18 18:00 03/20/18 09:01 03/14/18 09:20 Pacheco Baez MD Mar 14, 2018 10:29
--- NOTE | 2018-03-14 10:42 | GI Progress Note ---
Assessment/Plan Problems: (1) Dysphagia ICD Codes: R13.10 - Dysphagia, unspecified SNOMED: 80608438, 938756030 (2) Encounter for PEG (percutaneous endoscopic gastrostomy) ICD Codes: Z43.1 - Encounter for attention to gastrostomy SNOMED: 424775826, 383169911 (3) Severe malnutrition ICD Codes: E43 - Unspecified severe protein-calorie malnutrition SNOMED: 59272763 (4) Electrolyte imbalance ICD Codes: E87.8 - Other disorders of electrolyte and fluid balance, not elsewhere classified SNOMED: 404386530 (5) Dehydration ICD Codes: E86.0 - Dehydration SNOMED: 09119108 Status: stable Status Narrative Discussed with Dr. Velez. Assessment/Plan PEG canceled, discussed with son who wished to see patient over the weekend prior to making a decision for GT placement Will reschedule if consented Continue tube feedings per RD to goal drop in H&H without any obvious bleeding fu CBC, as needed transfusions OB stool to rule out GI bleed Follow-up labs The patient was seen and examined at bedside and all new and available data was reviewed in the patients chart. I agree with the above findings, impression and plan. (Patient seen earlier today. Signature stamp does not reflect patient encounter time.). - Ernesto Velez MD Subjective Subjective Limited Objective Last 24 Hour Vital Signs Date Time Temp Pulse Resp B/P (MAP) Pulse Ox O2 Delivery O2 Flow Rate FiO2 03/14/18 09:21 94 108/59 03/14/18 08:00 98.2 94 20 108/59 (75) 92 03/14/18 04:00 73 03/14/18 04:00 96.6 92 18 109/50 (69) 93 03/14/18 00:00 81 03/14/18 00:00 97.9 87 18 111/78 (89) 94 03/13/18 21:00 Nasal Cannula 2.0 03/13/18 20:27 98 Nasal Cannula 2.0 28 03/13/18 20:27 Nasal Cannula 2.0 28 03/13/18 20:00 97.7 99 18 105/61 (76) 95 03/13/18 20:00 88 03/13/18 16:00 98.1 100 18 102/59 (73) 98 03/13/18 16:00 96 03/13/18 12:00 97.8 111 18 99/55 (70) 98 03/13/18 12:00 108 Intake and Output 03/13/18 03/14/18 19:00 07:00 Intake Total 60 ml 560 ml Output Total 640 ml 875 ml Balance -580 ml -315 ml Intake Free Water 300 ml Tube Feeding 60 ml 260 ml Output Urine Total 640 ml 875 ml Laboratory Tests Test 03/14/18 08:50 White Blood Count 12.7 K/UL (4.8-10.8) H Red Blood Count 3.00 M/UL (4.20-5.40) L Hemoglobin 9.1 G/DL (12.0-16.0) L Hematocrit 27.1 % (37.0-47.0) L Mean Corpuscular Volume 90 FL (80-99) Mean Corpuscular Hemoglobin 30.2 PG (27.0-31.0) Mean Corpuscular Hemoglobin Concent 33.5 G/DL (32.0-36.0) Red Cell Distribution Width 13.3 % (11.6-14.8) Platelet Count 202 K/UL (150-450) Mean Platelet Volume 5.5 FL (6.5-10.1) L Neutrophils (%) (Auto) 79.8 % (45.0-75.0) H Lymphocytes (%) (Auto) 8.6 % (20.0-45.0) L Monocytes (%) (Auto) 10.4 % (1.0-10.0) H Eosinophils (%) (Auto) 0.4 % (0.0-3.0) Basophils (%) (Auto) 0.8 % (0.0-2.0) Prothrombin Time 11.4 SEC (9.30-11.50) Prothromb Time International Ratio 1.1 (0.9-1.1) Activated Partial Thromboplast Time 33 SEC (23-33) Sodium Level 137 MMOL/L (136-145) Potassium Level 3.7 MMOL/L (3.5-5.1) Chloride Level 103 MMOL/L (98-107) Carbon Dioxide Level 29 MMOL/L (21-32) Anion Gap 5 mmol/L (5-15) Blood Urea Nitrogen 9 mg/dL (7-18) Creatinine 0.4 MG/DL (0.55-1.30) L Estimat Glomerular Filtration Rate mL/min (>60) Glucose Level 95 MG/DL (74-106) Calcium Level 8.3 MG/DL (8.5-10.1) L Magnesium Level 1.6 MG/DL (1.8-2.4) L Height (Feet): 5 Height (Inches): 3.00 Weight (Pounds): 164 General Appearance: WD/WN, no apparent distress, alert Cardiovascular: normal rate Respiratory/Chest: normal breath sounds, no respiratory distress Abdominal Exam: normal bowel sounds, non tender, soft Extremities: normal range of motion, non-tender Thaddeus Galeana NP Mar 14, 2018 10:42
--- NOTE | 2018-03-14 10:59 | Diagnostic Imaging Report ---
Indication: Post nasogastric tube placement Technique: Supine view of the upper abdomen Comparison: 03/09/2018 Findings: Previously demonstrated weighting feeding tube is no longer evident. Despite visualization of most of the chest, only the portion of the nasogastric tube outside the body is visualized. Bowel gas pattern is unremarkable. What is probably a gastric T-fastener projects in the epigastric region. Postsurgical changes of the pelvis and bilateral hips are again noted. Bilateral pleural effusions, left greater than right are also demonstrated Impression: No nasogastric tube visualized. Suspect coiled in the hypopharynx This agrees with the preliminary interpretation provided overnight by [facility] teleradiology service.
[2018-03-14 12:00] VITALS: BP 109/58
[2018-03-14] MEDS ORDERED: Heparin 2000 units/Ns 1000ml INJ PRN ×2 (12:00→15:15)
[2018-03-14] MEDS ORDERED: Lidocaine 1% Plain 30 ml INJ PRN ×2 (12:02→15:15)
[2018-03-14] MEDS ORDERED: Dakin's 0.125% Soln (Quarter Strength) 16oz TOPIC SCH ×2 (12:30)
--- NOTE | 2018-03-14 12:50 | Internal Med Progress Note ---
Subjective Physician Name Davian Scott Attending Physician Davian Scott MD Current Medications Medications (Trade) Dose Ordered Sig/Cele Route PRN Reason Start Time Stop Time Status Last Admin Dose Admin Acetaminophen (Tylenol) 650 mg Q4H PRN NG fever (temp>100.5F) 03/11/18 16:00 04/05/18 15:52 03/11/18 21:54 Al Hydroxide/Mg Hydroxide (Mylanta II) 30 ml Q6H PRN NG dyspepsia 03/11/18 16:00 04/05/18 15:52 Albuterol/ Ipratropium (Albuterol/ Ipratropium) 3 ml Q4H PRN HHN Shortness of Breath 03/11/18 17:15 03/16/18 17:14 Ascorbic Acid (Vitamin C) 500 mg TWICE A DAY NG 03/11/18 18:00 04/10/18 17:59 03/14/18 09:21 Atenolol (Tenormin) 25 mg DAILY NG 03/12/18 09:00 04/06/18 08:59 03/14/18 09:21 Cefepime HCl 2 gm/ Dextrose 110 ml @ 220 mls/hr DAILY IV 03/12/18 09:00 03/19/18 08:59 03/13/18 09:26 Chlorhexidine Gluconate (Sahra-Hex 2%) 1 applic DAILY@2000 TOPIC 03/14/18 20:00 04/13/18 19:59 Dextrose/ Electrolytes 1,000 ml @ 50 mls/hr Q20H IV 03/11/18 16:00 04/09/18 17:10 03/13/18 09:25 Gabapentin (Neurontin) 300 mg THREE TIMES A DAY NG 03/11/18 18:00 04/05/18 17:59 03/14/18 09:20 Heparin Sodium (Porcine) (Heparin 5000 units/ml) 5,000 units EVERY 12 HOURS SUBQ 03/11/18 21:00 04/05/18 20:59 03/14/18 09:22 Heparin Sodium/ Sodium Chloride (Heparin 2000 units/Ns 1000ml premix) 2,000 unit ONCE PRN INJ PICC 03/14/18 12:00 03/14/18 23:59 Lidocaine HCl (Xylocaine 1% 30ml) 30 ml ONCE PRN INJ PICC 03/14/18 12:02 03/14/18 23:59 Nitroglycerin (Ntg) 0.4 mg Q5M PRN SL Prn Chest Pain 03/11/18 16:00 04/05/18 17:10 Olanzapine (ZyPREXA) 2.5 mg Q6H PRN NG agitation 03/11/18 16:00 04/07/18 15:53 Ondansetron HCl (Zofran) 4 mg Q6H PRN IVP Nausea & Vomiting 03/11/18 15:54 04/05/18 15:53 Polyethylene Glycol (Miralax) 17 gm DAILYPRN PRN NG Constipation 03/11/18 16:00 04/06/18 15:53 Promethazine HCl/ Codeine (Phenergan with Codeine) 5 ml Q4H PRN NG For Cough 03/11/18 17:15 04/05/18 17:11 Sodium Hypochlorite (Dakin's Quarter Strength) 1 applic DAILY TOPIC 03/14/18 12:30 04/13/18 12:29 Tamsulosin HCl (Flomax) 0.4 mg BEDTIME ORAL 03/11/18 21:00 04/05/18 20:59 03/13/18 22:12 Temazepam (Restoril) 15 mg HSPRN PRN ORAL Insomnia 03/11/18 17:15 03/14/18 17:11 Zinc Sulfate (Zinc Sulfate) 220 mg DAILY NG 03/11/18 18:00 03/20/18 09:01 03/14/18 09:20 Allergies: Coded Allergies: No Known Allergies (Unverified , 03/06/18) Subjective awake, responsive with open eyes, not verbal, NAD. Objective Last Vital Signs Date Time Temp Pulse Resp B/P (MAP) Pulse Ox O2 Delivery O2 Flow Rate FiO2 03/14/18 09:21 94 108/59 03/14/18 08:00 98.2 20 92 03/13/18 21:00 Nasal Cannula 2.0 03/13/18 20:27 28 Laboratory Tests Test 03/14/18 08:50 White Blood Count 12.7 K/UL (4.8-10.8) H Red Blood Count 3.00 M/UL (4.20-5.40) L Hemoglobin 9.1 G/DL (12.0-16.0) L Hematocrit 27.1 % (37.0-47.0) L Mean Corpuscular Volume 90 FL (80-99) Mean Corpuscular Hemoglobin 30.2 PG (27.0-31.0) Mean Corpuscular Hemoglobin Concent 33.5 G/DL (32.0-36.0) Red Cell Distribution Width 13.3 % (11.6-14.8) Platelet Count 202 K/UL (150-450) Mean Platelet Volume 5.5 FL (6.5-10.1) L Neutrophils (%) (Auto) 79.8 % (45.0-75.0) H Lymphocytes (%) (Auto) 8.6 % (20.0-45.0) L Monocytes (%) (Auto) 10.4 % (1.0-10.0) H Eosinophils (%) (Auto) 0.4 % (0.0-3.0) Basophils (%) (Auto) 0.8 % (0.0-2.0) Prothrombin Time 11.4 SEC (9.30-11.50) Prothromb Time International Ratio 1.1 (0.9-1.1) Activated Partial Thromboplast Time 33 SEC (23-33) Sodium Level 137 MMOL/L (136-145) Potassium Level 3.7 MMOL/L (3.5-5.1) Chloride Level 103 MMOL/L (98-107) Carbon Dioxide Level 29 MMOL/L (21-32) Anion Gap 5 mmol/L (5-15) Blood Urea Nitrogen 9 mg/dL (7-18) Creatinine 0.4 MG/DL (0.55-1.30) L Estimat Glomerular Filtration Rate mL/min (>60) Glucose Level 95 MG/DL (74-106) Calcium Level 8.3 MG/DL (8.5-10.1) L Magnesium Level 1.6 MG/DL (1.8-2.4) L Intake and Output 03/13/18 03/14/18 19:00 07:00 Intake Total 60 ml 560 ml Output Total 640 ml 875 ml Balance -580 ml -315 ml Intake Free Water 300 ml Tube Feeding 60 ml 260 ml Output Urine Total 640 ml 875 ml Objective General: No acute distress, awake and open eyes HEENT: NCAT, sclera anicteric, PERRL, NG Tube Neck: Supple, no significant jugular venous distention, Lungs: fair inspiratory effort, Decrease air at bases, no Wheeze or Rales. Heart: Regular rate and rhythm, normal S1/S2, no murmur, Abdomen: soft, nontender, nondistended. Normoactive bowel sounds. : Saravia cath Extremities: No Cyanosis , clubbing or edema. Neuro: A&O x 1, Limited due to patient status, Functional Quadriplegia Skin: warm, no rashes, Assessment/Plan Assessment/Plan Sepsis due to UTI Bacteremia Probability early PNA Functional Quadriplegia. HTN Afib dysphagia HLD Dementia All extremities contracture Multiple Decubitus Ulcer Plan: Abx: Cefepime and Vanco IV Tube feeding @ 60 cc/hr Full code heparin SQ F/U with labs and cultures. F/U with GI recommendations: For PEG waiting for Son to come over weekend, Piccline placement.. Davian Scott MD Mar 14, 2018 12:50
[2018-03-14] MEDS ORDERED: Magnesium Oxide 400mg tab ORAL SCH (13:00)
--- NOTE | 2018-03-14 14:26 | Diagnostic Imaging Report ---
Indication: Post nasogastric tube placement Technique: Supine view of the abdomen Comparison: 2 hours earlier Findings: Interim placement of a nasogastric tube, tip at the level gastric fundus. Other findings remain unchanged Impression: Satisfactory nasogastric intubation This agrees with the preliminary interpretation provided overnight by [facility] service.
[2018-03-14] MEDS ORDERED: Nitroglycerin Subl 0.4mg tab SL PRN (15:20)
[2018-03-14] MEDS ORDERED: OLANZapine 2.5mg tab NG PRN (16:00)
[2018-03-14] MEDS ORDERED: Mylanta II UD 30ml NG PRN (16:00)
[2018-03-14] MEDS ORDERED: Miralax 17gm pkt NG PRN (16:00)
[2018-03-14 16:03] VITALS: BP 99/50
[2018-03-14] MEDS ORDERED: Albuterol/Ipratropium 3ml neb HHN PRN (17:15)
[2018-03-14] MEDS ORDERED: Promethazine/Codeine 5ml UD NG PRN (17:15)
[2018-03-14] MEDS: Magnesium Oxide 400mg tab ORAL SCH (17:28)
[2018-03-14 20:00] VITALS: BP 91/74
[2018-03-14] MEDS ORDERED: Dyna-Hex 2% Top Sol 2oz TOPIC SCH (20:00)
[2018-03-14] MEDS: Tamsulosin 0.4mg cap ORAL SCH (20:16)
[2018-03-14] MEDS: Dyna-Hex 2% Top Sol 2oz TOPIC SCH (20:18)
--- NOTE | 2018-03-14 22:41 | General Progress Note ---
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 Subjective Allergies: Coded Allergies: No Known Allergies (Unverified , 03/06/18) Subjective confused episodes of agitation not able to provide hx Objective Last 24 Hour Vital Signs Date Time Temp Pulse Resp B/P (MAP) Pulse Ox O2 Delivery O2 Flow Rate FiO2 03/14/18 21:00 Nasal Cannula 2.0 03/14/18 20:00 97.7 77 20 91/74 (80) 94 03/14/18 16:03 97.3 90 17 99/50 (66) 96 03/14/18 15:54 Nasal Cannula 2.0 03/14/18 12:00 98.3 76 22 109/58 (75) 92 03/14/18 12:00 109 03/14/18 09:21 94 108/59 03/14/18 09:00 Nasal Cannula 2.0 03/14/18 08:00 98.2 94 20 108/59 (75) 92 03/14/18 08:00 88 03/14/18 04:00 73 03/14/18 04:00 96.6 92 18 109/50 (69) 93 03/14/18 00:00 81 03/14/18 00:00 97.9 87 18 111/78 (89) 94 Intake and Output 03/13/18 03/14/18 19:00 07:00 Intake Total 60 ml 560 ml Output Total 640 ml 875 ml Balance -580 ml -315 ml Intake Free Water 300 ml Tube Feeding 60 ml 260 ml Output Urine Total 640 ml 875 ml Laboratory Tests 03/14/18 08:50: White Blood Count 12.7H, Red Blood Count 3.00L, Hemoglobin 9.1L, Hematocrit 27.1L, Mean Corpuscular Volume 90, Mean Corpuscular Hemoglobin 30.2, Mean Corpuscular Hemoglobin Concent 33.5, Red Cell Distribution Width 13.3, Platelet Count 202, Mean Platelet Volume 5.5L, Neutrophils (%) (Auto) 79.8H, Lymphocytes (%) (Auto) 8.6L, Monocytes (%) (Auto) 10.4H, Eosinophils (%) (Auto) 0.4, Basophils (%) (Auto) 0.8, Prothrombin Time 11.4, Prothromb Time International Ratio 1.1, Activated Partial Thromboplast Time 33, Sodium Level 137, Potassium Level 3.7, Chloride Level 103, Carbon Dioxide Level 29, Anion Gap 5, Blood Urea Nitrogen 9, Creatinine 0.4L, Estimat Glomerular Filtration Rate , Glucose Level 95, Calcium Level 8.3L, Magnesium Level 1.6L Height (Feet): 5 Height (Inches): 3.00 Weight (Pounds): 164 General Appearance: alert, confused, agitated Bj Martinez MD Mar 14, 2018 22:41
[2018-03-15] VITALS: BP 91/58
[2018-03-15 04:00] VITALS: BP 100/61
[2018-03-15 06:59] LABS: HEMATOCRIT 28.3 % (37.0-47.0); HEMOGLOBIN 9.4 G/DL (12.0-16.0); MEAN CORPUSCULAR VOLUME 91 FL (80-99); PLATELET COUNT 191 K/UL (150-450); RED CELL DISTRIBUTION WIDTH 13.6 % (11.6-14.8); WHITE BLOOD COUNT 19.4 K/UL (4.8-10.8)
[2018-03-15 07:55] LABS: ANION GAP 3 mmol/L (5-15); BLOOD UREA NITROGEN 12 mg/dL (7-18); CALCIUM 8.6 MG/DL (8.5-10.1); CARBON DIOXIDE 29 MMOL/L (21-32); CHLORIDE 102 MMOL/L (98-107); CREATININE 0.6 MG/DL (0.55-1.30); POTASSIUM 4.2 MMOL/L (3.5-5.1); SODIUM 134 MMOL/L (136-145)
[2018-03-15 08:00] VITALS: BP 109/55
[2018-03-15] MEDS: Cefepime HCl 2 GM in D5W 110 ML IV SCH (09:00)
[2018-03-15] MEDS: Atenolol 25mg tab NG SCH (09:24)
[2018-03-15] MEDS: Ascorbic Acid 500mg tab NG SCH ×2 (09:24→17:30)
[2018-03-15] MEDS: Heparin 5000 units/ml inj SUBQ SCH ×2 (09:25→22:57)
[2018-03-15] MEDS: Magnesium Oxide 400mg tab ORAL SCH ×3 (09:25→17:30)
[2018-03-15] MEDS: Zinc Sulfate 220mg cap NG SCH (09:25)
[2018-03-15] MEDS: Dakin's 0.125% Soln (Quarter Strength) 16oz TOPIC SCH (09:26)
--- NOTE | 2018-03-15 10:59 | Infectious Diseases Prog Note ---
Assessment/Plan Assessment/Plan A: Sepsis, improving- 2ry to UTI c/w bacteremia and prob early PNA -u/a wbc tntc, nit neg, luek +3; ucx >100k PsA (R cipro/levo, otherwise S), E. fecalis (S Amp, vanco) -03/06 Bcx 4/4 P.mirabiis (R cipro, I Levo; otherwise S), 1/ MRSE ( contaminant); 03/07 Neg Probable Pneum : -CXR: Subtle patchy opacities in the right upper lung raising question for developing pneumonia. Clinical correlation/follow-up recommended. -influenza sc neg -sp cx MRSA, C. albicans (Colonizer) Low grade fever, SP Leukocytosis, increases FTT HTN Afib dysphagia HLD Dementia contractures Plan: - Add IV Vanco d# 1 -Continue Cefepime # for Proteus bacteremia and PsA UTI -03/13 SP IV Vancomycin #7 -03/06 SP Meropenem x1 -f/u legionella ag urine -Monitor CBC/CMP, temperatures -aspiration precautions - CT C/A/P ro abscess Subjective Allergies: Coded Allergies: No Known Allergies (Unverified , 03/06/18) Subjective await consent for PICC and CT Afebrile Objective Vital Signs Last 24 Hour Vital Signs Date Time Temp Pulse Resp B/P (MAP) Pulse Ox O2 Delivery O2 Flow Rate FiO2 03/15/18 09:24 100 109/55 03/15/18 09:00 Nasal Cannula 2.0 03/15/18 08:00 98.2 100 20 109/55 (73) 96 03/15/18 04:00 98.1 89 21 100/61 (74) 97 03/15/18 00:00 98.7 70 19 91/58 (69) 03/14/18 21:00 Nasal Cannula 2.0 03/14/18 20:00 97.7 77 20 91/74 (80) 94 03/14/18 20:00 97 Nasal Cannula 2.0 28 03/14/18 20:00 Nasal Cannula 2.0 28 03/14/18 16:03 97.3 90 17 99/50 (66) 96 03/14/18 15:54 Nasal Cannula 2.0 03/14/18 12:00 98.3 76 22 109/58 (75) 92 03/14/18 12:00 109 Height (Feet): 5 Height (Inches): 3.00 Weight (Pounds): 164 HEENT: anicteric Respiratory/Chest: normal breath sounds Cardiovascular: normal rate Abdomen: no organomegaly Laboratory Tests Test 03/15/18 06:30 White Blood Count 19.4 K/UL (4.8-10.8) #H Red Blood Count 3.10 M/UL (4.20-5.40) L Hemoglobin 9.4 G/DL (12.0-16.0) L Hematocrit 28.3 % (37.0-47.0) L Mean Corpuscular Volume 91 FL (80-99) Mean Corpuscular Hemoglobin 30.3 PG (27.0-31.0) Mean Corpuscular Hemoglobin Concent 33.2 G/DL (32.0-36.0) Red Cell Distribution Width 13.6 % (11.6-14.8) Platelet Count 191 K/UL (150-450) Mean Platelet Volume 5.8 FL (6.5-10.1) L Neutrophils (%) (Auto) % (45.0-75.0) Lymphocytes (%) (Auto) % (20.0-45.0) Monocytes (%) (Auto) % (1.0-10.0) Eosinophils (%) (Auto) % (0.0-3.0) Basophils (%) (Auto) % (0.0-2.0) Differential Total Cells Counted 100 Neutrophils % (Manual) 89 % (45-75) H Lymphocytes % (Manual) 5 % (20-45) L Monocytes % (Manual) 5 % (1-10) Eosinophils % (Manual) 0 % (0-3) Basophils % (Manual) 0 % (0-2) Band Neutrophils 1 % (0-8) Platelet Estimate Adequate Platelet Morphology Normal Red Blood Cell Morphology Normal Sodium Level 134 MMOL/L (136-145) L Potassium Level 4.2 MMOL/L (3.5-5.1) Chloride Level 102 MMOL/L (98-107) Carbon Dioxide Level 29 MMOL/L (21-32) Anion Gap 3 mmol/L (5-15) L Blood Urea Nitrogen 12 mg/dL (7-18) Creatinine 0.6 MG/DL (0.55-1.30) Estimat Glomerular Filtration Rate mL/min (>60) Glucose Level 180 MG/DL (74-106) H Calcium Level 8.6 MG/DL (8.5-10.1) Current Medications Medications (Trade) Dose Ordered Sig/Cele Route PRN Reason Start Time Stop Time Status Last Admin Dose Admin Acetaminophen (Tylenol) 650 mg Q4H PRN NG fever (temp>100.5F) 03/14/18 16:00 04/05/18 15:52 Al Hydroxide/Mg Hydroxide (Mylanta II) 30 ml Q6H PRN NG dyspepsia 03/14/18 16:00 04/05/18 15:52 Albuterol/ Ipratropium (Albuterol/ Ipratropium) 3 ml Q4H PRN HHN Shortness of Breath 03/14/18 17:15 03/16/18 17:14 Ascorbic Acid (Vitamin C) 500 mg TWICE A DAY NG 03/14/18 18:00 04/10/18 17:59 03/15/18 09:24 Atenolol (Tenormin) 25 mg DAILY NG 03/15/18 09:00 04/06/18 08:59 03/15/18 09:24 Cefepime HCl 2 gm/ Dextrose 110 ml @ 220 mls/hr DAILY IV 03/15/18 09:00 03/19/18 08:59 Chlorhexidine Gluconate (Sahra-Hex 2%) 1 applic DAILY@2000 TOPIC 03/14/18 20:00 04/13/18 19:59 03/14/18 20:18 Dextrose/ Electrolytes 1,000 ml @ 50 mls/hr Q20H IV 03/14/18 15:15 04/09/18 17:10 Gabapentin (Neurontin) 300 mg THREE TIMES A DAY NG 03/14/18 18:00 04/05/18 17:59 03/15/18 09:24 Heparin Sodium (Porcine) (Heparin 5000 units/ml) 5,000 units EVERY 12 HOURS SUBQ 03/14/18 21:00 04/05/18 20:59 03/15/18 09:25 Heparin Sodium/ Sodium Chloride (Heparin 2000 units/Ns 1000ml premix) 2,000 unit ONCE PRN INJ picc line placement 03/14/18 15:15 03/15/18 15:14 Lidocaine HCl (Xylocaine 1% 30ml) 30 ml ONCE PRN INJ picc line placement 03/14/18 15:15 03/15/18 15:14 Magnesium Oxide (Mag-Ox 400mg) 400 mg THREE TIMES A DAY ORAL 03/14/18 18:00 03/17/18 12:59 03/15/18 09:25 Nitroglycerin (Ntg) 0.4 mg Q5M PRN SL Prn Chest Pain 03/14/18 15:20 04/05/18 17:10 Olanzapine (ZyPREXA) 2.5 mg Q6H PRN NG agitation 03/14/18 16:00 04/07/18 15:53 Ondansetron HCl (Zofran) 4 mg Q6H PRN IVP Nausea & Vomiting 03/14/18 16:00 04/05/18 15:53 Polyethylene Glycol (Miralax) 17 gm DAILYPRN PRN NG Constipation 03/14/18 16:00 04/06/18 15:53 Promethazine HCl/ Codeine (Phenergan with Codeine) 5 ml Q4H PRN NG For Cough 03/14/18 17:15 04/05/18 17:11 Sodium Hypochlorite (Dakin's Quarter Strength) 1 applic DAILY TOPIC 03/15/18 09:00 04/13/18 12:29 03/15/18 09:26 Tamsulosin HCl (Flomax) 0.4 mg BEDTIME ORAL 03/14/18 21:00 04/05/18 20:59 03/14/18 20:16 Temazepam (Restoril) 15 mg HSPRN PRN ORAL Insomnia 03/14/18 15:15 03/21/18 15:14 Zinc Sulfate (Zinc Sulfate) 220 mg DAILY NG 03/15/18 09:00 03/20/18 09:01 03/15/18 09:25 Gunner Oshea MD Mar 15, 2018 10:59
[2018-03-15] MEDS ORDERED: Isovue-300 100ml vial INJ PRN (11:00)
[2018-03-15] MEDS: D5 1/2NS w/KCL 10meq 1,000 ML IV SCH (11:15)
[2018-03-15 12:00] VITALS: BP 139/57
[2018-03-15] MEDS: Vancomycin 1250mg/D5W 250ml IVPB SCH (13:00)
[2018-03-15 16:00] VITALS: BP 95/71
--- NOTE | 2018-03-15 16:08 | Internal Med Progress Note ---
Subjective Date of Service: Mar 15, 2018 Physician Name Shankar Betts Attending Physician Davian Scott MD Current Medications Medications (Trade) Dose Ordered Sig/Cele Route PRN Reason Start Time Stop Time Status Last Admin Dose Admin Acetaminophen (Tylenol) 650 mg Q4H PRN NG fever (temp>100.5F) 03/14/18 16:00 04/05/18 15:52 Al Hydroxide/Mg Hydroxide (Mylanta II) 30 ml Q6H PRN NG dyspepsia 03/14/18 16:00 04/05/18 15:52 Albuterol/ Ipratropium (Albuterol/ Ipratropium) 3 ml Q4H PRN HHN Shortness of Breath 03/14/18 17:15 03/16/18 17:14 Ascorbic Acid (Vitamin C) 500 mg TWICE A DAY NG 03/14/18 18:00 04/10/18 17:59 03/15/18 09:24 Atenolol (Tenormin) 25 mg DAILY NG 03/15/18 09:00 04/06/18 08:59 03/15/18 09:24 Barium Sulfate (Readi-Cat 2) 450 ml NOW PRN ORAL Radiology Procedure 03/15/18 11:00 03/17/18 10:59 Cefepime HCl 2 gm/ Dextrose 110 ml @ 220 mls/hr DAILY IV 03/15/18 09:00 03/19/18 08:59 Chlorhexidine Gluconate (Sahra-Hex 2%) 1 applic DAILY@2000 TOPIC 03/14/18 20:00 04/13/18 19:59 03/14/18 20:18 Dextrose/ Electrolytes 1,000 ml @ 50 mls/hr Q20H IV 03/14/18 15:15 04/09/18 17:10 Gabapentin (Neurontin) 300 mg THREE TIMES A DAY NG 03/14/18 18:00 04/05/18 17:59 03/15/18 13:29 Heparin Sodium (Porcine) (Heparin 5000 units/ml) 5,000 units EVERY 12 HOURS SUBQ 03/14/18 21:00 04/05/18 20:59 03/15/18 09:25 Iopamidol (Isovue-300 100ml) 100 ml NOW PRN INJ Radiology Procedure 03/15/18 11:00 03/17/18 10:59 Magnesium Oxide (Mag-Ox 400mg) 400 mg THREE TIMES A DAY ORAL 03/14/18 18:00 03/17/18 12:59 03/15/18 13:28 Nitroglycerin (Ntg) 0.4 mg Q5M PRN SL Prn Chest Pain 03/14/18 15:20 04/05/18 17:10 Olanzapine (ZyPREXA) 2.5 mg Q6H PRN NG agitation 03/14/18 16:00 04/07/18 15:53 Ondansetron HCl (Zofran) 4 mg Q6H PRN IVP Nausea & Vomiting 03/14/18 16:00 04/05/18 15:53 Polyethylene Glycol (Miralax) 17 gm DAILYPRN PRN NG Constipation 03/14/18 16:00 04/06/18 15:53 Promethazine HCl/ Codeine (Phenergan with Codeine) 5 ml Q4H PRN NG For Cough 03/14/18 17:15 04/05/18 17:11 Sodium Hypochlorite (Dakin's Quarter Strength) 1 applic DAILY TOPIC 03/15/18 09:00 04/13/18 12:29 03/15/18 09:26 Tamsulosin HCl (Flomax) 0.4 mg BEDTIME ORAL 03/14/18 21:00 04/05/18 20:59 03/14/18 20:16 Temazepam (Restoril) 15 mg HSPRN PRN ORAL Insomnia 03/14/18 15:15 03/21/18 15:14 Vancomycin HCl (Vanco rx to dose) 1 ea DAILY PRN MISC Per rx protocol 03/15/18 11:00 04/14/18 10:59 Vancomycin HCl 500 mg/Dextrose 110 ml @ 110 mls/hr Q12HR@0100,1300 IVPB 03/16/18 01:00 03/21/18 00:59 Vancomycin HCl/ Dextrose 250 ml @ 166.667 mls/hr ONCE IVPB 03/15/18 13:00 03/20/18 12:59 Zinc Sulfate (Zinc Sulfate) 220 mg DAILY NG 03/15/18 09:00 03/20/18 09:01 03/15/18 09:25 Allergies: Coded Allergies: No Known Allergies (Unverified , 03/06/18) ROS Limited/Unobtainable: Yes Subjective 87 YO F admitted with hematuria and gen weakness. Now pyelonephritis and sepsis. Cover for Int Med-Dr Scott. PEG postponed-see GI note Objective Last Vital Signs Date Time Temp Pulse Resp B/P (MAP) Pulse Ox O2 Delivery O2 Flow Rate FiO2 03/15/18 12:00 98.2 92 20 139/57 (84) 92 03/15/18 09:00 Nasal Cannula 2.0 03/14/18 20:00 28 Laboratory Tests Test 03/15/18 06:30 White Blood Count 19.4 K/UL (4.8-10.8) #H Red Blood Count 3.10 M/UL (4.20-5.40) L Hemoglobin 9.4 G/DL (12.0-16.0) L Hematocrit 28.3 % (37.0-47.0) L Mean Corpuscular Volume 91 FL (80-99) Mean Corpuscular Hemoglobin 30.3 PG (27.0-31.0) Mean Corpuscular Hemoglobin Concent 33.2 G/DL (32.0-36.0) Red Cell Distribution Width 13.6 % (11.6-14.8) Platelet Count 191 K/UL (150-450) Mean Platelet Volume 5.8 FL (6.5-10.1) L Neutrophils (%) (Auto) % (45.0-75.0) Lymphocytes (%) (Auto) % (20.0-45.0) Monocytes (%) (Auto) % (1.0-10.0) Eosinophils (%) (Auto) % (0.0-3.0) Basophils (%) (Auto) % (0.0-2.0) Differential Total Cells Counted 100 Neutrophils % (Manual) 89 % (45-75) H Lymphocytes % (Manual) 5 % (20-45) L Monocytes % (Manual) 5 % (1-10) Eosinophils % (Manual) 0 % (0-3) Basophils % (Manual) 0 % (0-2) Band Neutrophils 1 % (0-8) Platelet Estimate Adequate Platelet Morphology Normal Red Blood Cell Morphology Normal Sodium Level 134 MMOL/L (136-145) L Potassium Level 4.2 MMOL/L (3.5-5.1) Chloride Level 102 MMOL/L (98-107) Carbon Dioxide Level 29 MMOL/L (21-32) Anion Gap 3 mmol/L (5-15) L Blood Urea Nitrogen 12 mg/dL (7-18) Creatinine 0.6 MG/DL (0.55-1.30) Estimat Glomerular Filtration Rate mL/min (>60) Glucose Level 180 MG/DL (74-106) H Calcium Level 8.6 MG/DL (8.5-10.1) Intake and Output 03/14/18 03/15/18 19:00 07:00 Intake Total 510 ml 1260 ml Output Total 200 ml Balance 510 ml 1060 ml Intake Free Water 300 ml 600 ml Tube Feeding 210 ml 660 ml Output Urine Total 200 ml # Bowel Movements 1 Objective PHYSICAL EXAMINATION: GENERAL: The patient is a well-developed and well-nourished white female, in no apparent distress. HEENT: Eyes, pupils are equal and responsive to light and accommodation. Extraocular movements are intact. NECK: Supple without lymphadenopathy. CHEST: Decreased breath sounds at bilateral bases. Otherwise, clear to auscultation without wheezes or rales. CARDIOVASCULAR: Tachycardic. Regular rate and rhythm. S1, S2 are normal without murmurs, rubs, or gallops. ABDOMEN: Soft, nontender, and nondistended. Positive bowel sounds. No evidence of hepatosplenomegaly. Currently, no rebound or guarding noted. EXTREMITIES: Negative for clubbing, cyanosis, or edema. RECTAL/GENITAL: Deferred. NEUROLOGIC: Cranial nerves II through XII are grossly intact without focal deficits. Assessment/Plan Problem List: (1) Dysphagia Assessment & Plan: PEG postponed by son-see GI note (2) Pyelonephritis Assessment & Plan: Pseudamonas and strep. See ID note-Continue cefepime and vanco (3) Sepsis (4) HTN (hypertension) Assessment & Plan: Currently hypotensive (5) Hypercholesteremia (6) Sacral decubitus ulcer, stage IV Assessment & Plan: See surgery note-dr Ramsay (7) Urinary tract infection Assessment & Plan: pseudamonas; continue cefepime per ID (8) Pneumonia Shankar Betts MD Mar 15, 2018 16:08
--- NOTE | 2018-03-15 18:05 | Pulmonology Progress Note ---
Assessment/Plan Assessment/Plan Pulmonary Progress Note HPI This patient is brought in by EMS. Per report, the patient has had failure to thrive and generalized weakness. They also note hematuria. The patient is nonverbal and unable to articulate any complaints. She has also stopped eating per the medical record and nursing notes. There is no other history of present illness available or documented. No overnight issues Allergies: No Known Allergies Past Medical History: HTN, AFib, dementia, HL psych hx, other - contractures, DU, muscle wasting, previous G tube Social History: Denies: smoking, alcohol use, drug use All Other Systems: limited Physical Exam Vital Signs Noted General Appearance: no apparent distress, alert, GCS 15, non-toxic, other - frail, elderly, chronically ill, contracted, non-verbal, Chronically Ill Head: normocephalic, atraumatic Eyes: bilateral eye normal inspection, bilateral eye PERRL ENT: no angioedema Neck: other - flexed. contracted. Respiratory: chest non-tender, lungs clear, normal breath sounds, no respiratory distress, no retraction, no accessory muscle use, speaking full sentences Cardiovascular #1: no edema, tachycardia, systolic murmur, irregularly irregular Gastrointestinal: normal bowel sounds, non tender, soft, non-distended, no guarding, no rebound, other - colostomy bag in place. Rectal: deferred Musculoskeletal: back normal, gait/station normal, normal range of motion, non- tender Neurologic: alert, other - non-focal. Contracted, non-verbal Psychiatric: mood/affect normal Skin: no rash, warm/dry, well hydrated, other - Multiple DU Impression: Pyelonephritis Sepsis Pneumonia Hypernatremia Lactic acid acidosis HTN, AFib, Dementia, HL psych hx, other - contractures, DU, muscle wasting, previous G tube Plan IV Antibiotics O2 PRN PPX IVF PTAmeds Aspiration precautions Laboratory Tests Test 03/06/18 10:12 03/06/18 10:25 03/06/18 10:47 White Blood Count 15.7 K/UL (4.8-10.8) H Red Blood Count 4.60 M/UL (4.20-5.40) Hemoglobin 13.3 G/DL (12.0-16.0) Hematocrit 42.1 % (37.0-47.0) Mean Corpuscular Volume 91 FL (80-99) Mean Corpuscular Hemoglobin 28.9 PG (27.0-31.0) Mean Corpuscular Hemoglobin Concent 31.7 G/DL (32.0-36.0) L Red Cell Distribution Width 13.3 % (11.6-14.8) Platelet Count 246 K/UL (150-450) Mean Platelet Volume 5.4 FL (6.5-10.1) L Neutrophils (%) (Auto) 77.5 % (45.0-75.0) H Lymphocytes (%) (Auto) 13.9 % (20.0-45.0) L Monocytes (%) (Auto) 8.1 % (1.0-10.0) Eosinophils (%) (Auto) 0.1 % (0.0-3.0) Basophils (%) (Auto) 0.4 % (0.0-2.0) Prothrombin Time 12.4 SEC (9.30-11.50) H Prothrombin Time INR 1.2 (0.9-1.1) H PTT 29 SEC (23-33) Sodium Level 147 MMOL/L (136-145) H Potassium Level 4.8 MMOL/L (3.5-5.1) Chloride Level 108 MMOL/L (98-107) H Carbon Dioxide Level 30 MMOL/L (21-32) Anion Gap 9 mmol/L (5-15) Blood Urea Nitrogen 18 mg/dL (7-18) Creatinine 0.8 MG/DL (0.55-1.30) Estimate Glomerular Filtration Rate mL/min (>60) Glucose Level 114 MG/DL (74-106) H Lactic Acid Level 3.60 mmol/L (0.4-2.0) H Calcium Level 9.1 MG/DL (8.5-10.1) Phosphorus Level 3.2 MG/DL (2.5-4.9) Magnesium Level 1.9 MG/DL (1.8-2.4) Total Bilirubin 0.6 MG/DL (0.2-1.0) Aspartate Amino Transferase (AST) 27 U/L (15-37) Alanine Aminotransferase (ALT) 16 U/L (12-78) Alkaline Phosphatase 128 U/L (46-116) H Total Creatine Kinase 59 U/L (26-308) Creatine Kinase MB 1.6 NG/ML (0.0-3.6) Creatine Kinase MB Relative Index 2.7 Total Protein 6.7 G/DL (6.4-8.2) Albumin 2.1 G/DL (3.4-5.0) L Globulin 4.6 g/dL Albumin/Globulin Ratio 0.5 (1.0-2.7) L Troponin I 0.033 ng/mL (0.000-0.056) Urine Color Yellow Urine Appearance Cloudy Urine pH 6 (4.5-8.0) Urine Specific [place] 1.020 (1.005-1.035) Urine Protein 4+ (NEGATIVE) H Urine Glucose (UA) Negative (NEGATIVE) Urine Ketones 3+ (NEGATIVE) H Urine Blood 5+ (NEGATIVE) H Urine Nitrite Negative (NEGATIVE) Urine Bilirubin 1+ (NEGATIVE) H Urine Ictotest Negative (NEGATIVE) Urine Urobilinogen Normal MG/DL (0.0-1.0) Urine Leukocyte Esterase 3+ (NEGATIVE) H Urine RBC 30-40 /HPF (0 - 2) H Urine WBC Tntc /HPF (0 - 2) H Urine Squamous Epithelial Cells Few /LPF (NONE/OCC) Urine Bacteria Few /HPF (NONE) Microbiology Date/Time Source Procedure Growth Status 03/06/18 10:12 Nasal Nares Influenza Types A,B Antigen (NGA) - Final Complete EKG Diagnostic Results Rate: tachycardiac Rhythm: other - S.tachycardia ST Segments: no acute changes Chest X-Ray Diagnostic Results Chest X-Ray Diagnostic Results : Chest X-Ray Ordered: Yes # of Views/Limited/Complete: 1 View Indication: Other EP Interpretation: No Interpretation: other - Questionable opacity RUL Impression: Other - See above Electronically Signed by: Halima Chery DO Subjective ROS Limited/Unobtainable: No Allergies: Coded Allergies: No Known Allergies (Unverified , 03/06/18) Objective Last 24 Hour Vital Signs Date Time Temp Pulse Resp B/P (MAP) Pulse Ox O2 Delivery O2 Flow Rate FiO2 03/15/18 16:00 97.7 93 21 95/71 (79) 94 03/15/18 12:00 98.2 92 20 139/57 (84) 92 03/15/18 09:24 100 109/55 03/15/18 09:00 Nasal Cannula 2.0 03/15/18 08:00 98.2 100 20 109/55 (73) 96 03/15/18 04:00 98.1 89 21 100/61 (74) 97 03/15/18 00:00 98.7 70 19 91/58 (69) 03/14/18 21:00 Nasal Cannula 2.0 03/14/18 20:00 97.7 77 20 91/74 (80) 94 03/14/18 20:00 97 Nasal Cannula 2.0 28 03/14/18 20:00 Nasal Cannula 2.0 28 Intake and Output 03/14/18 03/15/18 19:00 07:00 Intake Total 510 ml 1260 ml Output Total 200 ml Balance 510 ml 1060 ml Intake Free Water 300 ml 600 ml Tube Feeding 210 ml 660 ml Output Urine Total 200 ml # Bowel Movements 1 Laboratory Tests 03/15/18 06:30: White Blood Count 19.4#H, Red Blood Count 3.10L, Hemoglobin 9.4L, Hematocrit 28.3L, Mean Corpuscular Volume 91, Mean Corpuscular Hemoglobin 30.3, Mean Corpuscular Hemoglobin Concent 33.2, Red Cell Distribution Width 13.6, Platelet Count 191, Mean Platelet Volume 5.8L, Neutrophils (%) (Auto) , Lymphocytes (%) ( Auto) , Monocytes (%) (Auto) , Eosinophils (%) (Auto) , Basophils (%) (Auto) , Differential Total Cells Counted 100, Neutrophils % (Manual) 89H, Lymphocytes % (Manual) 5L, Monocytes % (Manual) 5, Eosinophils % (Manual) 0, Basophils % ( Manual) 0, Band Neutrophils 1, Platelet Estimate Adequate, Platelet Morphology Normal, Red Blood Cell Morphology Normal, Sodium Level 134L, Potassium Level 4.2 , Chloride Level 102, Carbon Dioxide Level 29, Anion Gap 3L, Blood Urea Nitrogen 12, Creatinine 0.6, Estimat Glomerular Filtration Rate , Glucose Level 180H, Calcium Level 8.6 Current Medications Medications (Trade) Dose Ordered Sig/Cele Route PRN Reason Start Time Stop Time Status Last Admin Dose Admin Acetaminophen (Tylenol) 650 mg Q4H PRN NG fever (temp>100.5F) 03/14/18 16:00 04/05/18 15:52 Al Hydroxide/Mg Hydroxide (Mylanta II) 30 ml Q6H PRN NG dyspepsia 03/14/18 16:00 04/05/18 15:52 Albuterol/ Ipratropium (Albuterol/ Ipratropium) 3 ml Q4H PRN HHN Shortness of Breath 03/14/18 17:15 03/16/18 17:14 Ascorbic Acid (Vitamin C) 500 mg TWICE A DAY NG 03/14/18 18:00 04/10/18 17:59 03/15/18 17:30 Atenolol (Tenormin) 25 mg DAILY NG 03/15/18 09:00 04/06/18 08:59 03/15/18 09:24 Barium Sulfate (Readi-Cat 2) 450 ml NOW PRN ORAL Radiology Procedure 03/15/18 11:00 03/17/18 10:59 Cefepime HCl 2 gm/ Dextrose 110 ml @ 220 mls/hr DAILY IV 03/15/18 09:00 03/19/18 08:59 Chlorhexidine Gluconate (Sahra-Hex 2%) 1 applic DAILY@2000 TOPIC 03/14/18 20:00 04/13/18 19:59 03/14/18 20:18 Dextrose/ Electrolytes 1,000 ml @ 50 mls/hr Q20H IV 03/14/18 15:15 04/09/18 17:10 Gabapentin (Neurontin) 300 mg THREE TIMES A DAY NG 03/14/18 18:00 04/05/18 17:59 03/15/18 17:30 Heparin Sodium (Porcine) (Heparin 5000 units/ml) 5,000 units EVERY 12 HOURS SUBQ 03/14/18 21:00 04/05/18 20:59 03/15/18 09:25 Iopamidol (Isovue-300 100ml) 100 ml NOW PRN INJ Radiology Procedure 03/15/18 11:00 03/17/18 10:59 Magnesium Oxide (Mag-Ox 400mg) 400 mg THREE TIMES A DAY ORAL 03/14/18 18:00 03/17/18 12:59 03/15/18 17:30 Nitroglycerin (Ntg) 0.4 mg Q5M PRN SL Prn Chest Pain 03/14/18 15:20 04/05/18 17:10 Olanzapine (ZyPREXA) 2.5 mg Q6H PRN NG agitation 03/14/18 16:00 04/07/18 15:53 Ondansetron HCl (Zofran) 4 mg Q6H PRN IVP Nausea & Vomiting 03/14/18 16:00 04/05/18 15:53 Polyethylene Glycol (Miralax) 17 gm DAILYPRN PRN NG Constipation 03/14/18 16:00 04/06/18 15:53 Promethazine HCl/ Codeine (Phenergan with Codeine) 5 ml Q4H PRN NG For Cough 03/14/18 17:15 04/05/18 17:11 Sodium Hypochlorite (Dakin's Quarter Strength) 1 applic DAILY TOPIC 03/15/18 09:00 04/13/18 12:29 03/15/18 09:26 Tamsulosin HCl (Flomax) 0.4 mg BEDTIME ORAL 03/14/18 21:00 04/05/18 20:59 03/14/18 20:16 Temazepam (Restoril) 15 mg HSPRN PRN ORAL Insomnia 03/14/18 15:15 03/21/18 15:14 Vancomycin HCl (Vanco rx to dose) 1 ea DAILY PRN MISC Per rx protocol 03/15/18 11:00 04/14/18 10:59 Vancomycin HCl 500 mg/Dextrose 110 ml @ 110 mls/hr Q12HR@0100,1300 IVPB 03/16/18 01:00 03/21/18 00:59 Vancomycin HCl/ Dextrose 250 ml @ 166.667 mls/hr ONCE IVPB 03/15/18 13:00 03/20/18 12:59 Zinc Sulfate (Zinc Sulfate) 220 mg DAILY NG 03/15/18 09:00 03/20/18 09:01 03/15/18 09:25 Pacheco Baez MD Mar 15, 2018 18:05
--- NOTE | 2018-03-15 18:41 | General Progress Note ---
Assessment/Plan Assessment/Plan Assessment (1) Severe malnutrition / dysphagia ICD Codes: E43 - Unspecified severe protein-calorie malnutrition SNOMED: 77546787 (2) Encounter for PEG (percutaneous endoscopic gastrostomy) ICD Codes: Z43.1 - Encounter for attention to gastrostomy SNOMED: 862234280, 500693763 (3) Dehydration ICD Codes: E86.0 - Dehydration SNOMED: 42690748 (4) Dysphasia ICD Codes: R47.02 - Dysphasia SNOMED: 07386152 (5) Atrial fibrillation with RVR ICD Codes: I48.91 - Unspecified atrial fibrillation SNOMED: 052961345366037 (6) Decub ulcers Assessment/Plan NGTF social welfare clerk consult appreciated pending consent - message left with family Elevated WBC - Pyelo - on Vanco and Cefepime drop in H&H without any obvious bleeding fu CBC anemia work up Subjective Allergies: Coded Allergies: No Known Allergies (Unverified , 03/06/18) Subjective nonverbal d/w Rn multiple wounds and decubs patient extremely contracted in all 4 Objective Last 24 Hour Vital Signs Date Time Temp Pulse Resp B/P (MAP) Pulse Ox O2 Delivery O2 Flow Rate FiO2 03/15/18 16:00 97.7 93 21 95/71 (79) 94 03/15/18 12:00 98.2 92 20 139/57 (84) 92 03/15/18 09:24 100 109/55 03/15/18 09:00 Nasal Cannula 2.0 03/15/18 08:00 98.2 100 20 109/55 (73) 96 03/15/18 04:00 98.1 89 21 100/61 (74) 97 03/15/18 00:00 98.7 70 19 91/58 (69) 03/14/18 21:00 Nasal Cannula 2.0 03/14/18 20:00 97.7 77 20 91/74 (80) 94 03/14/18 20:00 97 Nasal Cannula 2.0 28 03/14/18 20:00 Nasal Cannula 2.0 28 Intake and Output 03/14/18 03/15/18 19:00 07:00 Intake Total 510 ml 1260 ml Output Total 200 ml Balance 510 ml 1060 ml Intake Free Water 300 ml 600 ml Tube Feeding 210 ml 660 ml Output Urine Total 200 ml # Bowel Movements 1 Laboratory Tests 03/15/18 06:30: White Blood Count 19.4#H, Red Blood Count 3.10L, Hemoglobin 9.4L, Hematocrit 28.3L, Mean Corpuscular Volume 91, Mean Corpuscular Hemoglobin 30.3, Mean Corpuscular Hemoglobin Concent 33.2, Red Cell Distribution Width 13.6, Platelet Count 191, Mean Platelet Volume 5.8L, Neutrophils (%) (Auto) , Lymphocytes (%) ( Auto) , Monocytes (%) (Auto) , Eosinophils (%) (Auto) , Basophils (%) (Auto) , Differential Total Cells Counted 100, Neutrophils % (Manual) 89H, Lymphocytes % (Manual) 5L, Monocytes % (Manual) 5, Eosinophils % (Manual) 0, Basophils % ( Manual) 0, Band Neutrophils 1, Platelet Estimate Adequate, Platelet Morphology Normal, Red Blood Cell Morphology Normal, Sodium Level 134L, Potassium Level 4.2 , Chloride Level 102, Carbon Dioxide Level 29, Anion Gap 3L, Blood Urea Nitrogen 12, Creatinine 0.6, Estimat Glomerular Filtration Rate , Glucose Level 180H, Calcium Level 8.6 Height (Feet): 5 Height (Inches): 3.00 Weight (Pounds): 164 Objective Eldely WW Non verbal Chest CTA RR soft ND OBS (+++) contracted and twisted extremities Jacque Hernandez MD Mar 15, 2018 18:41
[2018-03-15 20:00] VITALS: BP 95/54
[2018-03-15] MEDS: Dyna-Hex 2% Top Sol 2oz TOPIC SCH (20:00)
[2018-03-15] MEDS: Tamsulosin 0.4mg cap ORAL SCH (22:57)
[2018-03-16] VITALS: BP 93/53
[2018-03-16] MEDS: Vancomycin 500mg/D5W 110ml IVPB SCH ×4 (01:00→13:00)
[2018-03-16 04:00] VITALS: BP 96/50
[2018-03-16] MEDS: D5 1/2NS w/KCL 10meq 1,000 ML IV SCH (06:05)
[2018-03-16 07:12] LABS: BASOPHILS % (AUTO) 0.5 % (0.0-2.0); EOSINOPHILS % (AUTO) 0.4 % (0.0-3.0); HEMATOCRIT 25.9 % (37.0-47.0); HEMOGLOBIN 8.8 G/DL (12.0-16.0); LYMPHOCYTES % (AUTO) 12.4 % (20.0-45.0); MEAN CORPUSCULAR VOLUME 90 FL (80-99); MONOCYTES % (AUTO) 8.3 % (1.0-10.0); NEUTROPHILS % (AUTO) 78.5 % (45.0-75.0); PLATELET COUNT 212 K/UL (150-450); RED BLOOD COUNT 2.87 M/UL (4.20-5.40); RED CELL DISTRIBUTION WIDTH 13.6 % (11.6-14.8); WHITE BLOOD COUNT 14.6 K/UL (4.8-10.8)
[2018-03-16 08:00] VITALS: BP 114/55
[2018-03-16 08:21] LABS: ANION GAP 2 mmol/L (5-15); BLOOD UREA NITROGEN 14 mg/dL (7-18); CALCIUM 8.5 MG/DL (8.5-10.1); CARBON DIOXIDE 30 MMOL/L (21-32); CHLORIDE 103 MMOL/L (98-107); CREATININE 0.5 MG/DL (0.55-1.30); POTASSIUM 4.3 MMOL/L (3.5-5.1); SODIUM 135 MMOL/L (136-145)
[2018-03-16] MEDS: Zinc Sulfate 220mg cap NG SCH (08:34)
[2018-03-16] MEDS: Ascorbic Acid 500mg tab NG SCH ×2 (08:35→17:39)
[2018-03-16] MEDS: Atenolol 25mg tab NG SCH (08:35)
[2018-03-16] MEDS: Heparin 5000 units/ml inj SUBQ SCH ×2 (08:35→23:56)
[2018-03-16] MEDS: Dakin's 0.125% Soln (Quarter Strength) 16oz TOPIC SCH (08:36)
[2018-03-16] MEDS: Magnesium Oxide 400mg tab ORAL SCH ×3 (08:36→17:39)
[2018-03-16] MEDS ORDERED: Sterile Water Irrig 1000ml IRRIG ONE (08:57)
[2018-03-16] MEDS: Cefepime HCl 2 GM in D5W 110 ML IV SCH (09:00)
[2018-03-16] MEDS: Acetaminophen 650mg/20.3ml NG PRN (09:18)
[2018-03-16 12:00] VITALS: BP 110/45
[2018-03-16] MEDS: Vancomycin 1250mg/D5W 250ml IVPB SCH (13:00)
--- NOTE | 2018-03-16 14:11 | Internal Med Progress Note ---
Subjective Date of Service: Mar 16, 2018 Physician Name Betts,Shankar Attending Physician Davian Scott MD Current Medications Medications (Trade) Dose Ordered Sig/Ceel Route PRN Reason Start Time Stop Time Status Last Admin Dose Admin Acetaminophen (Tylenol) 650 mg Q4H PRN NG fever (temp>100.5F) 03/14/18 16:00 04/05/18 15:52 03/16/18 09:18 Al Hydroxide/Mg Hydroxide (Mylanta II) 30 ml Q6H PRN NG dyspepsia 03/14/18 16:00 04/05/18 15:52 Albuterol/ Ipratropium (Albuterol/ Ipratropium) 3 ml Q4H PRN HHN Shortness of Breath 03/14/18 17:15 03/16/18 17:14 Ascorbic Acid (Vitamin C) 500 mg TWICE A DAY NG 03/14/18 18:00 04/10/18 17:59 03/16/18 08:35 Atenolol (Tenormin) 25 mg DAILY NG 03/15/18 09:00 04/06/18 08:59 03/16/18 08:35 Barium Sulfate (Readi-Cat 2) 450 ml NOW PRN ORAL Radiology Procedure 03/15/18 11:00 03/17/18 10:59 Cefepime HCl 2 gm/ Dextrose 110 ml @ 220 mls/hr DAILY IV 03/15/18 09:00 03/19/18 08:59 Chlorhexidine Gluconate (Sahra-Hex 2%) 1 applic DAILY@2000 TOPIC 03/14/18 20:00 04/13/18 19:59 03/14/18 20:18 Dextrose/ Electrolytes 1,000 ml @ 50 mls/hr Q20H IV 03/14/18 15:15 04/09/18 17:10 Gabapentin (Neurontin) 300 mg THREE TIMES A DAY NG 03/14/18 18:00 04/05/18 17:59 03/16/18 13:24 Heparin Sodium (Porcine) (Heparin 5000 units/ml) 5,000 units EVERY 12 HOURS SUBQ 03/14/18 21:00 04/05/18 20:59 03/16/18 08:35 Iopamidol (Isovue-300 100ml) 100 ml NOW PRN INJ Radiology Procedure 03/15/18 11:00 03/17/18 10:59 Magnesium Oxide (Mag-Ox 400mg) 400 mg THREE TIMES A DAY ORAL 03/14/18 18:00 03/17/18 12:59 03/16/18 13:24 Nitroglycerin (Ntg) 0.4 mg Q5M PRN SL Prn Chest Pain 03/14/18 15:20 04/05/18 17:10 Olanzapine (ZyPREXA) 2.5 mg Q6H PRN NG agitation 03/14/18 16:00 04/07/18 15:53 Ondansetron HCl (Zofran) 4 mg Q6H PRN IVP Nausea & Vomiting 03/14/18 16:00 04/05/18 15:53 Polyethylene Glycol (Miralax) 17 gm DAILYPRN PRN NG Constipation 03/14/18 16:00 04/06/18 15:53 Promethazine HCl/ Codeine (Phenergan with Codeine) 5 ml Q4H PRN NG For Cough 03/14/18 17:15 04/05/18 17:11 Sodium Hypochlorite (Dakin's Quarter Strength) 1 applic DAILY TOPIC 03/15/18 09:00 04/13/18 12:29 03/16/18 08:36 Tamsulosin HCl (Flomax) 0.4 mg BEDTIME ORAL 03/14/18 21:00 04/05/18 20:59 03/15/18 22:57 Temazepam (Restoril) 15 mg HSPRN PRN ORAL Insomnia 03/14/18 15:15 03/21/18 15:14 Vancomycin HCl (Vanco rx to dose) 1 ea DAILY PRN MISC Per rx protocol 03/15/18 11:00 04/14/18 10:59 Vancomycin HCl 500 mg/Dextrose 110 ml @ 110 mls/hr Q12HR@0100,1300 IVPB 03/16/18 01:00 03/21/18 00:59 Future Hold Zinc Sulfate (Zinc Sulfate) 220 mg DAILY NG 03/15/18 09:00 03/20/18 09:01 03/16/18 08:34 Allergies: Coded Allergies: No Known Allergies (Unverified , 03/06/18) ROS Limited/Unobtainable: Yes Subjective 87 YO F admitted with hematuria and gen weakness. Now pyelonephritis and sepsis. Cover for Int Med-Dr Scott. PEG postponed-see GI note Objective Last Vital Signs Date Time Temp Pulse Resp B/P (MAP) Pulse Ox O2 Delivery O2 Flow Rate FiO2 03/16/18 12:00 97.5 77 20 110/45 (66) 96 03/16/18 09:00 Nasal Cannula 2.0 03/15/18 21:28 28 Laboratory Tests Test 03/16/18 05:20 White Blood Count 14.6 K/UL (4.8-10.8) H Red Blood Count 2.87 M/UL (4.20-5.40) L Hemoglobin 8.8 G/DL (12.0-16.0) L Hematocrit 25.9 % (37.0-47.0) L Mean Corpuscular Volume 90 FL (80-99) Mean Corpuscular Hemoglobin 30.5 PG (27.0-31.0) Mean Corpuscular Hemoglobin Concent 33.8 G/DL (32.0-36.0) Red Cell Distribution Width 13.6 % (11.6-14.8) Platelet Count 212 K/UL (150-450) Mean Platelet Volume 4.8 FL (6.5-10.1) L Neutrophils (%) (Auto) 78.5 % (45.0-75.0) H Lymphocytes (%) (Auto) 12.4 % (20.0-45.0) L Monocytes (%) (Auto) 8.3 % (1.0-10.0) Eosinophils (%) (Auto) 0.4 % (0.0-3.0) Basophils (%) (Auto) 0.5 % (0.0-2.0) Sodium Level 135 MMOL/L (136-145) L Potassium Level 4.3 MMOL/L (3.5-5.1) Chloride Level 103 MMOL/L (98-107) Carbon Dioxide Level 30 MMOL/L (21-32) Anion Gap 2 mmol/L (5-15) L Blood Urea Nitrogen 14 mg/dL (7-18) Creatinine 0.5 MG/DL (0.55-1.30) L Estimat Glomerular Filtration Rate mL/min (>60) Glucose Level 142 MG/DL (74-106) H Calcium Level 8.5 MG/DL (8.5-10.1) Intake and Output 03/15/18 03/16/18 19:00 07:00 Intake Total 60 ml 1260 ml Output Total 150 ml 1100 ml Balance -90 ml 160 ml Intake Free Water 600 ml Tube Feeding 60 ml 660 ml Output Urine Total 150 ml 900 ml Stool Total 200 ml Objective PHYSICAL EXAMINATION: GENERAL: The patient is a well-developed and well-nourished white female, in no apparent distress. HEENT: Eyes, pupils are equal and responsive to light and accommodation. Extraocular movements are intact. NECK: Supple without lymphadenopathy. CHEST: Decreased breath sounds at bilateral bases. Otherwise, clear to auscultation without wheezes or rales. CARDIOVASCULAR: Tachycardic. Regular rate and rhythm. S1, S2 are normal without murmurs, rubs, or gallops. ABDOMEN: Soft, nontender, and nondistended. Positive bowel sounds. No evidence of hepatosplenomegaly. Currently, no rebound or guarding noted. EXTREMITIES: Negative for clubbing, cyanosis, or edema. RECTAL/GENITAL: Deferred. NEUROLOGIC: Cranial nerves II through XII are grossly intact without focal deficits. Assessment/Plan Problem List: (1) Dysphagia Assessment & Plan: PEG postponed by son-see GI note (2) Pyelonephritis Assessment & Plan: Pseudamonas and strep. See ID note-Continue cefepime and vanco (3) Sepsis (4) HTN (hypertension) Assessment & Plan: Currently hypotensive (5) Hypercholesteremia (6) Sacral decubitus ulcer, stage IV Assessment & Plan: See surgery note-dr Ramsay (7) Urinary tract infection Assessment & Plan: pseudamonas; continue cefepime per ID (8) Pneumonia Status: stable Shankar Betts MD Mar 16, 2018 14:11
--- NOTE | 2018-03-16 14:18 | Pulmonology Progress Note ---
Assessment/Plan Assessment/Plan Pulmonary Progress Note HPI This patient is brought in by EMS. Per report, the patient has had failure to thrive and generalized weakness. They also note hematuria. The patient is nonverbal and unable to articulate any complaints. She has also stopped eating per the medical record and nursing notes. There is no other history of present illness available or documented. No overnight issues Allergies: No Known Allergies Past Medical History: HTN, AFib, dementia, HL psych hx, other - contractures, DU, muscle wasting, previous G tube Social History: Denies: smoking, alcohol use, drug use All Other Systems: limited Physical Exam Vital Signs Noted General Appearance: no apparent distress, alert, GCS 15, non-toxic, other - frail, elderly, chronically ill, contracted, non-verbal, Chronically Ill Head: normocephalic, atraumatic Eyes: bilateral eye normal inspection, bilateral eye PERRL ENT: no angioedema Neck: other - flexed. contracted. Respiratory: chest non-tender, lungs clear, normal breath sounds, no respiratory distress, no retraction, no accessory muscle use, speaking full sentences Cardiovascular #1: no edema, tachycardia, systolic murmur, irregularly irregular Gastrointestinal: normal bowel sounds, non tender, soft, non-distended, no guarding, no rebound, other - colostomy bag in place. Rectal: deferred Musculoskeletal: back normal, gait/station normal, normal range of motion, non- tender Neurologic: alert, other - non-focal. Contracted, non-verbal Psychiatric: mood/affect normal Skin: no rash, warm/dry, well hydrated, other - Multiple DU Impression: Pyelonephritis Sepsis Pneumonia Hypernatremia Lactic acid acidosis HTN, AFib, Dementia, HL psych hx, other - contractures, DU, muscle wasting, previous G tube Plan IV Antibiotics O2 PRN PPX IVF PTAmeds Aspiration precautions Laboratory Tests Test 03/06/18 10:12 03/06/18 10:25 03/06/18 10:47 White Blood Count 15.7 K/UL (4.8-10.8) H Red Blood Count 4.60 M/UL (4.20-5.40) Hemoglobin 13.3 G/DL (12.0-16.0) Hematocrit 42.1 % (37.0-47.0) Mean Corpuscular Volume 91 FL (80-99) Mean Corpuscular Hemoglobin 28.9 PG (27.0-31.0) Mean Corpuscular Hemoglobin Concent 31.7 G/DL (32.0-36.0) L Red Cell Distribution Width 13.3 % (11.6-14.8) Platelet Count 246 K/UL (150-450) Mean Platelet Volume 5.4 FL (6.5-10.1) L Neutrophils (%) (Auto) 77.5 % (45.0-75.0) H Lymphocytes (%) (Auto) 13.9 % (20.0-45.0) L Monocytes (%) (Auto) 8.1 % (1.0-10.0) Eosinophils (%) (Auto) 0.1 % (0.0-3.0) Basophils (%) (Auto) 0.4 % (0.0-2.0) Prothrombin Time 12.4 SEC (9.30-11.50) H Prothrombin Time INR 1.2 (0.9-1.1) H PTT 29 SEC (23-33) Sodium Level 147 MMOL/L (136-145) H Potassium Level 4.8 MMOL/L (3.5-5.1) Chloride Level 108 MMOL/L (98-107) H Carbon Dioxide Level 30 MMOL/L (21-32) Anion Gap 9 mmol/L (5-15) Blood Urea Nitrogen 18 mg/dL (7-18) Creatinine 0.8 MG/DL (0.55-1.30) Estimate Glomerular Filtration Rate mL/min (>60) Glucose Level 114 MG/DL (74-106) H Lactic Acid Level 3.60 mmol/L (0.4-2.0) H Calcium Level 9.1 MG/DL (8.5-10.1) Phosphorus Level 3.2 MG/DL (2.5-4.9) Magnesium Level 1.9 MG/DL (1.8-2.4) Total Bilirubin 0.6 MG/DL (0.2-1.0) Aspartate Amino Transferase (AST) 27 U/L (15-37) Alanine Aminotransferase (ALT) 16 U/L (12-78) Alkaline Phosphatase 128 U/L (46-116) H Total Creatine Kinase 59 U/L (26-308) Creatine Kinase MB 1.6 NG/ML (0.0-3.6) Creatine Kinase MB Relative Index 2.7 Total Protein 6.7 G/DL (6.4-8.2) Albumin 2.1 G/DL (3.4-5.0) L Globulin 4.6 g/dL Albumin/Globulin Ratio 0.5 (1.0-2.7) L Troponin I 0.033 ng/mL (0.000-0.056) Urine Color Yellow Urine Appearance Cloudy Urine pH 6 (4.5-8.0) Urine Specific Connell 1.020 (1.005-1.035) Urine Protein 4+ (NEGATIVE) H Urine Glucose (UA) Negative (NEGATIVE) Urine Ketones 3+ (NEGATIVE) H Urine Blood 5+ (NEGATIVE) H Urine Nitrite Negative (NEGATIVE) Urine Bilirubin 1+ (NEGATIVE) H Urine Ictotest Negative (NEGATIVE) Urine Urobilinogen Normal MG/DL (0.0-1.0) Urine Leukocyte Esterase 3+ (NEGATIVE) H Urine RBC 30-40 /HPF (0 - 2) H Urine WBC Tntc /HPF (0 - 2) H Urine Squamous Epithelial Cells Few /LPF (NONE/OCC) Urine Bacteria Few /HPF (NONE) Microbiology Date/Time Source Procedure Growth Status 03/06/18 10:12 Nasal Nares Influenza Types A,B Antigen (NGA) - Final Complete EKG Diagnostic Results Rate: tachycardiac Rhythm: other - S.tachycardia ST Segments: no acute changes Chest X-Ray Diagnostic Results Chest X-Ray Diagnostic Results : Chest X-Ray Ordered: Yes # of Views/Limited/Complete: 1 View Indication: Other EP Interpretation: No Interpretation: other - Questionable opacity RUL Impression: Other - See above Electronically Signed by: Halima Chery DO Subjective ROS Limited/Unobtainable: No Allergies: Coded Allergies: No Known Allergies (Unverified , 03/06/18) Objective Last 24 Hour Vital Signs Date Time Temp Pulse Resp B/P (MAP) Pulse Ox O2 Delivery O2 Flow Rate FiO2 03/16/18 12:00 97.5 77 20 110/45 (66) 96 03/16/18 09:48 97.9 03/16/18 09:00 Nasal Cannula 2.0 03/16/18 08:35 86 114/55 03/16/18 08:00 97.9 86 20 114/55 (74) 96 03/16/18 04:00 98.2 88 18 96/50 (65) 98 03/16/18 00:00 98.5 84 21 93/53 (66) 96 03/15/18 21:28 Nasal Cannula 2.0 28 03/15/18 21:27 97 Nasal Cannula 2.0 28 03/15/18 21:00 Nasal Cannula 2.0 03/15/18 20:00 97.7 91 20 95/54 (68) 94 03/15/18 16:00 97.7 93 21 95/71 (79) 94 Intake and Output 03/15/18 03/16/18 19:00 07:00 Intake Total 60 ml 1260 ml Output Total 150 ml 1100 ml Balance -90 ml 160 ml Intake Free Water 600 ml Tube Feeding 60 ml 660 ml Output Urine Total 150 ml 900 ml Stool Total 200 ml Laboratory Tests 03/16/18 05:20: White Blood Count 14.6H, Red Blood Count 2.87L, Hemoglobin 8.8L, Hematocrit 25.9L, Mean Corpuscular Volume 90, Mean Corpuscular Hemoglobin 30.5, Mean Corpuscular Hemoglobin Concent 33.8, Red Cell Distribution Width 13.6, Platelet Count 212, Mean Platelet Volume 4.8L, Neutrophils (%) (Auto) 78.5H, Lymphocytes (%) (Auto) 12.4L, Monocytes (%) (Auto) 8.3, Eosinophils (%) (Auto) 0.4, Basophils (%) (Auto) 0.5, Sodium Level 135L, Potassium Level 4.3, Chloride Level 103, Carbon Dioxide Level 30, Anion Gap 2L, Blood Urea Nitrogen 14, Creatinine 0.5L, Estimat Glomerular Filtration Rate , Glucose Level 142H, Calcium Level 8.5 Current Medications Medications (Trade) Dose Ordered Sig/Cele Route PRN Reason Start Time Stop Time Status Last Admin Dose Admin Acetaminophen (Tylenol) 650 mg Q4H PRN NG fever (temp>100.5F) 03/14/18 16:00 04/05/18 15:52 03/16/18 09:18 Al Hydroxide/Mg Hydroxide (Mylanta II) 30 ml Q6H PRN NG dyspepsia 03/14/18 16:00 04/05/18 15:52 Albuterol/ Ipratropium (Albuterol/ Ipratropium) 3 ml Q4H PRN HHN Shortness of Breath 03/14/18 17:15 03/16/18 17:14 Ascorbic Acid (Vitamin C) 500 mg TWICE A DAY NG 03/14/18 18:00 04/10/18 17:59 03/16/18 08:35 Atenolol (Tenormin) 25 mg DAILY NG 03/15/18 09:00 04/06/18 08:59 03/16/18 08:35 Barium Sulfate (Readi-Cat 2) 450 ml NOW PRN ORAL Radiology Procedure 03/15/18 11:00 03/17/18 10:59 Cefepime HCl 2 gm/ Dextrose 110 ml @ 220 mls/hr DAILY IV 03/15/18 09:00 03/19/18 08:59 Chlorhexidine Gluconate (Sahra-Hex 2%) 1 applic DAILY@2000 TOPIC 03/14/18 20:00 04/13/18 19:59 03/14/18 20:18 Dextrose/ Electrolytes 1,000 ml @ 50 mls/hr Q20H IV 03/14/18 15:15 04/09/18 17:10 Gabapentin (Neurontin) 300 mg THREE TIMES A DAY NG 03/14/18 18:00 04/05/18 17:59 03/16/18 13:24 Heparin Sodium (Porcine) (Heparin 5000 units/ml) 5,000 units EVERY 12 HOURS SUBQ 03/14/18 21:00 04/05/18 20:59 03/16/18 08:35 Iopamidol (Isovue-300 100ml) 100 ml NOW PRN INJ Radiology Procedure 03/15/18 11:00 03/17/18 10:59 Magnesium Oxide (Mag-Ox 400mg) 400 mg THREE TIMES A DAY ORAL 03/14/18 18:00 03/17/18 12:59 03/16/18 13:24 Nitroglycerin (Ntg) 0.4 mg Q5M PRN SL Prn Chest Pain 03/14/18 15:20 04/05/18 17:10 Olanzapine (ZyPREXA) 2.5 mg Q6H PRN NG agitation 03/14/18 16:00 04/07/18 15:53 Ondansetron HCl (Zofran) 4 mg Q6H PRN IVP Nausea & Vomiting 03/14/18 16:00 04/05/18 15:53 Polyethylene Glycol (Miralax) 17 gm DAILYPRN PRN NG Constipation 03/14/18 16:00 04/06/18 15:53 Promethazine HCl/ Codeine (Phenergan with Codeine) 5 ml Q4H PRN NG For Cough 03/14/18 17:15 04/05/18 17:11 Sodium Hypochlorite (Dakin's Quarter Strength) 1 applic DAILY TOPIC 03/15/18 09:00 04/13/18 12:29 03/16/18 08:36 Tamsulosin HCl (Flomax) 0.4 mg BEDTIME ORAL 03/14/18 21:00 04/05/18 20:59 03/15/18 22:57 Temazepam (Restoril) 15 mg HSPRN PRN ORAL Insomnia 03/14/18 15:15 03/21/18 15:14 Vancomycin HCl (Vanco rx to dose) 1 ea DAILY PRN MISC Per rx protocol 03/15/18 11:00 04/14/18 10:59 Vancomycin HCl 500 mg/Dextrose 110 ml @ 110 mls/hr Q12HR@0100,1300 IVPB 03/16/18 01:00 03/21/18 00:59 Future Hold Zinc Sulfate (Zinc Sulfate) 220 mg DAILY NG 03/15/18 09:00 03/20/18 09:01 03/16/18 08:34 Pacheco Baez MD Mar 16, 2018 14:18
[2018-03-16 16:00] VITALS: BP 96/50
--- NOTE | 2018-03-16 18:06 | General Progress Note ---
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 ativan prn Subjective Date patient seen: Mar 15, 2018 Allergies: Coded Allergies: No Known Allergies (Unverified , 03/06/18) Subjective confused episodes of agitation. he was agitated earlier Objective Last 24 Hour Vital Signs Date Time Temp Pulse Resp B/P (MAP) Pulse Ox O2 Delivery O2 Flow Rate FiO2 03/16/18 16:00 97.2 70 20 96/50 (65) 96 03/16/18 12:00 97.5 77 20 110/45 (66) 96 03/16/18 09:48 97.9 03/16/18 09:00 Nasal Cannula 2.0 03/16/18 08:35 86 114/55 03/16/18 08:00 97.9 86 20 114/55 (74) 96 03/16/18 04:00 98.2 88 18 96/50 (65) 98 03/16/18 00:00 98.5 84 21 93/53 (66) 96 03/15/18 21:28 Nasal Cannula 2.0 28 03/15/18 21:27 97 Nasal Cannula 2.0 28 03/15/18 21:00 Nasal Cannula 2.0 03/15/18 20:00 97.7 91 20 95/54 (68) 94 Intake and Output 03/15/18 03/16/18 19:00 07:00 Intake Total 60 ml 1260 ml Output Total 150 ml 1100 ml Balance -90 ml 160 ml Intake Free Water 600 ml Tube Feeding 60 ml 660 ml Output Urine Total 150 ml 900 ml Stool Total 200 ml Laboratory Tests 03/16/18 05:20: White Blood Count 14.6H, Red Blood Count 2.87L, Hemoglobin 8.8L, Hematocrit 25.9L, Mean Corpuscular Volume 90, Mean Corpuscular Hemoglobin 30.5, Mean Corpuscular Hemoglobin Concent 33.8, Red Cell Distribution Width 13.6, Platelet Count 212, Mean Platelet Volume 4.8L, Neutrophils (%) (Auto) 78.5H, Lymphocytes (%) (Auto) 12.4L, Monocytes (%) (Auto) 8.3, Eosinophils (%) (Auto) 0.4, Basophils (%) (Auto) 0.5, Sodium Level 135L, Potassium Level 4.3, Chloride Level 103, Carbon Dioxide Level 30, Anion Gap 2L, Blood Urea Nitrogen 14, Creatinine 0.5L, Estimat Glomerular Filtration Rate , Glucose Level 142H, Calcium Level 8.5 Height (Feet): 5 Height (Inches): 3.00 Weight (Pounds): 164 General Appearance: confused, moderate distress, agitated Bj Martinez MD Mar 16, 2018 18:06
--- NOTE | 2018-03-16 19:10 | General Progress Note ---
Assessment/Plan Assessment/Plan Assessment (1) Severe malnutrition / dysphagia ICD Codes: E43 - Unspecified severe protein-calorie malnutrition SNOMED: 42887862 (2) Encounter for PEG (percutaneous endoscopic gastrostomy) ICD Codes: Z43.1 - Encounter for attention to gastrostomy SNOMED: 376171639, 684388772 (3) Dehydration ICD Codes: E86.0 - Dehydration SNOMED: 06606281 (4) Dysphasia ICD Codes: R47.02 - Dysphasia SNOMED: 71177492 (5) Atrial fibrillation with RVR ICD Codes: I48.91 - Unspecified atrial fibrillation SNOMED: 993375304821216 (6) Decub ulcers Assessment/Plan NGTF health care social worker consult appreciated pending consent - message left with family Elevated WBC - Pyelo - on Vanco and Cefepime drop in H&H without any obvious bleeding fu CBC anemia work up Subjective Allergies: Coded Allergies: No Known Allergies (Unverified , 03/06/18) Subjective nonverbal messages left with son yesterday and today to call back to discuss PEG multiple wounds and decubs patient extremely contracted in all 4 Objective Last 24 Hour Vital Signs Date Time Temp Pulse Resp B/P (MAP) Pulse Ox O2 Delivery O2 Flow Rate FiO2 03/16/18 16:00 97.2 70 20 96/50 (65) 96 03/16/18 12:00 97.5 77 20 110/45 (66) 96 03/16/18 09:48 97.9 03/16/18 09:00 Nasal Cannula 2.0 03/16/18 08:35 86 114/55 03/16/18 08:00 97.9 86 20 114/55 (74) 96 03/16/18 04:00 98.2 88 18 96/50 (65) 98 03/16/18 00:00 98.5 84 21 93/53 (66) 96 03/15/18 21:28 Nasal Cannula 2.0 28 03/15/18 21:27 97 Nasal Cannula 2.0 28 03/15/18 21:00 Nasal Cannula 2.0 03/15/18 20:00 97.7 91 20 95/54 (68) 94 Intake and Output 03/15/18 03/16/18 19:00 07:00 Intake Total 60 ml 1260 ml Output Total 150 ml 1100 ml Balance -90 ml 160 ml Intake Free Water 600 ml Tube Feeding 60 ml 660 ml Output Urine Total 150 ml 900 ml Stool Total 200 ml Laboratory Tests 03/16/18 05:20: White Blood Count 14.6H, Red Blood Count 2.87L, Hemoglobin 8.8L, Hematocrit 25.9L, Mean Corpuscular Volume 90, Mean Corpuscular Hemoglobin 30.5, Mean Corpuscular Hemoglobin Concent 33.8, Red Cell Distribution Width 13.6, Platelet Count 212, Mean Platelet Volume 4.8L, Neutrophils (%) (Auto) 78.5H, Lymphocytes (%) (Auto) 12.4L, Monocytes (%) (Auto) 8.3, Eosinophils (%) (Auto) 0.4, Basophils (%) (Auto) 0.5, Sodium Level 135L, Potassium Level 4.3, Chloride Level 103, Carbon Dioxide Level 30, Anion Gap 2L, Blood Urea Nitrogen 14, Creatinine 0.5L, Estimat Glomerular Filtration Rate , Glucose Level 142H, Calcium Level 8.5 Height (Feet): 5 Height (Inches): 3.00 Weight (Pounds): 164 Objective Eldely WW Non verbal Chest CTA RR soft ND OBS (+++) contracted and twisted extremities Jacque Hernandez MD Mar 16, 2018 19:10
[2018-03-16 20:00] VITALS: BP 98/57
[2018-03-16] MEDS: Tamsulosin 0.4mg cap ORAL SCH (23:53)
[2018-03-16] MEDS: Dyna-Hex 2% Top Sol 2oz TOPIC SCH (23:53)
[2018-03-17] VITALS: BP 99/62
[2018-03-17] MEDS: D5 1/2NS w/KCL 10meq 1,000 ML IV SCH ×2 (03:15→23:15)
[2018-03-17 04:00] VITALS: BP 105/58
[2018-03-17 07:48] LABS: BASOPHILS % (AUTO) 0.7 % (0.0-2.0); EOSINOPHILS % (AUTO) 1.1 % (0.0-3.0); HEMATOCRIT 24.1 % (37.0-47.0); HEMOGLOBIN 8.1 G/DL (12.0-16.0); LYMPHOCYTES % (AUTO) 15.7 % (20.0-45.0); MEAN CORPUSCULAR VOLUME 91 FL (80-99); MONOCYTES % (AUTO) 9.2 % (1.0-10.0); NEUTROPHILS % (AUTO) 73.3 % (45.0-75.0); PLATELET COUNT 243 K/UL (150-450); RED BLOOD COUNT 2.65 M/UL (4.20-5.40); RED CELL DISTRIBUTION WIDTH 14.1 % (11.6-14.8); WHITE BLOOD COUNT 10.5 K/UL (4.8-10.8)
[2018-03-17 08:00] VITALS: BP 99/55
[2018-03-17 08:07] LABS: ANION GAP 2 mmol/L (5-15); BLOOD UREA NITROGEN 12 mg/dL (7-18); CALCIUM 8.3 MG/DL (8.5-10.1); CARBON DIOXIDE 32 MMOL/L (21-32); CHLORIDE 102 MMOL/L (98-107); CREATININE 0.4 MG/DL (0.55-1.30); POTASSIUM 4.5 MMOL/L (3.5-5.1); SODIUM 136 MMOL/L (136-145)
--- NOTE | 2018-03-17 08:27 | Infectious Diseases Prog Note ---
Assessment/Plan Assessment/Plan Sepsis, improving- 2ry to UTI c/w bacteremia and prob early PNA -u/a wbc tntc, nit neg, luek +3; ucx >100k PsA (R cipro/levo, otherwise S), E. fecalis (S Amp, vanco) -03/06 Bcx 4/4 P.mirabiis (R cipro, I Levo; otherwise S), 1/ MRSE ( contaminant); 03/07 Neg Probable Pneum : -CXR: Subtle patchy opacities in the right upper lung raising question for developing pneumonia. Clinical correlation/follow-up recommended. -influenza sc neg -sp cx MRSA, C. albicans (Colonizer) Low grade fever, SP Leukocytosis, increases FTT HTN Afib dysphagia HLD Dementia contractures Plan: - Add IV Vanco d# 3 - for PNA -Continue Cefepime # 13 /14 for Proteus bacteremia and PsA UTI -03/13 SP IV Vancomycin #7 -03/06 SP Meropenem x1 - f/u CT C/A/P -Monitor CBC/CMP, temperatures -aspiration precautions Subjective Allergies: Coded Allergies: No Known Allergies (Unverified , 03/06/18) Subjective Patient remains afebrile Leukocytosis resolved Not following Objective Vital Signs Last 24 Hour Vital Signs Date Time Temp Pulse Resp B/P (MAP) Pulse Ox O2 Delivery O2 Flow Rate FiO2 03/17/18 04:00 98.2 74 20 105/58 (74) 97 03/17/18 00:00 98.1 86 20 99/62 (74) 97 03/16/18 21:00 Nasal Cannula 2.0 03/16/18 20:00 97.9 87 20 98/57 (71) 96 03/16/18 16:00 97.2 70 20 96/50 (65) 96 03/16/18 12:00 97.5 77 20 110/45 (66) 96 03/16/18 09:48 97.9 03/16/18 09:00 Nasal Cannula 2.0 03/16/18 08:35 86 114/55 Height (Feet): 5 Height (Inches): 3.00 Weight (Pounds): 164 Objective General: NAD HEENT: normocephalic, atraumatic, MMM Respiratory: CTAB, No W Cardiovascular : tachycardia, systolic murmur, irregularly irregular Gastrointestinal: soft, non-distended, colostomy bag in place. Neurologic: alert, non-verbal Laboratory Tests Test 03/17/18 05:33 White Blood Count 10.5 K/UL (4.8-10.8) Red Blood Count 2.65 M/UL (4.20-5.40) L Hemoglobin 8.1 G/DL (12.0-16.0) L Hematocrit 24.1 % (37.0-47.0) L Mean Corpuscular Volume 91 FL (80-99) Mean Corpuscular Hemoglobin 30.5 PG (27.0-31.0) Mean Corpuscular Hemoglobin Concent 33.5 G/DL (32.0-36.0) Red Cell Distribution Width 14.1 % (11.6-14.8) Platelet Count 243 K/UL (150-450) Mean Platelet Volume 5.0 FL (6.5-10.1) L Neutrophils (%) (Auto) 73.3 % (45.0-75.0) Lymphocytes (%) (Auto) 15.7 % (20.0-45.0) L Monocytes (%) (Auto) 9.2 % (1.0-10.0) Eosinophils (%) (Auto) 1.1 % (0.0-3.0) Basophils (%) (Auto) 0.7 % (0.0-2.0) Sodium Level 136 MMOL/L (136-145) Potassium Level 4.5 MMOL/L (3.5-5.1) Chloride Level 102 MMOL/L (98-107) Carbon Dioxide Level 32 MMOL/L (21-32) Anion Gap 2 mmol/L (5-15) L Blood Urea Nitrogen 12 mg/dL (7-18) Creatinine 0.4 MG/DL (0.55-1.30) L Estimat Glomerular Filtration Rate mL/min (>60) Glucose Level 93 MG/DL (74-106) Calcium Level 8.3 MG/DL (8.5-10.1) L Current Medications Medications (Trade) Dose Ordered Sig/Cele Route PRN Reason Start Time Stop Time Status Last Admin Dose Admin Acetaminophen (Tylenol) 650 mg Q4H PRN NG fever (temp>100.5F) 03/14/18 16:00 04/05/18 15:52 03/16/18 09:18 Al Hydroxide/Mg Hydroxide (Mylanta II) 30 ml Q6H PRN NG dyspepsia 03/14/18 16:00 04/05/18 15:52 Ascorbic Acid (Vitamin C) 500 mg TWICE A DAY NG 03/14/18 18:00 04/10/18 17:59 03/16/18 17:39 Atenolol (Tenormin) 25 mg DAILY NG 03/15/18 09:00 04/06/18 08:59 03/16/18 08:35 Barium Sulfate (Readi-Cat 2) 450 ml NOW PRN ORAL Radiology Procedure 03/15/18 11:00 03/17/18 10:59 Cefepime HCl 2 gm/ Dextrose 110 ml @ 220 mls/hr DAILY IV 03/15/18 09:00 03/19/18 08:59 Chlorhexidine Gluconate (Sahra-Hex 2%) 1 applic DAILY@2000 TOPIC 03/14/18 20:00 04/13/18 19:59 03/16/18 23:53 Dextrose/ Electrolytes 1,000 ml @ 50 mls/hr Q20H IV 03/14/18 15:15 04/09/18 17:10 Gabapentin (Neurontin) 300 mg THREE TIMES A DAY NG 03/14/18 18:00 04/05/18 17:59 03/16/18 17:39 Heparin Sodium (Porcine) (Heparin 5000 units/ml) 5,000 units EVERY 12 HOURS SUBQ 03/14/18 21:00 04/05/18 20:59 03/16/18 23:56 Iopamidol (Isovue-300 100ml) 100 ml NOW PRN INJ Radiology Procedure 03/15/18 11:00 03/17/18 10:59 Magnesium Oxide (Mag-Ox 400mg) 400 mg THREE TIMES A DAY ORAL 03/14/18 18:00 03/17/18 12:59 03/16/18 17:39 Nitroglycerin (Ntg) 0.4 mg Q5M PRN SL Prn Chest Pain 03/14/18 15:20 04/05/18 17:10 Olanzapine (ZyPREXA) 2.5 mg Q6H PRN NG agitation 03/14/18 16:00 04/07/18 15:53 Ondansetron HCl (Zofran) 4 mg Q6H PRN IVP Nausea & Vomiting 03/14/18 16:00 04/05/18 15:53 Polyethylene Glycol (Miralax) 17 gm DAILYPRN PRN NG Constipation 03/14/18 16:00 04/06/18 15:53 Promethazine HCl/ Codeine (Phenergan with Codeine) 5 ml Q4H PRN NG For Cough 03/14/18 17:15 04/05/18 17:11 Sodium Hypochlorite (Dakin's Quarter Strength) 1 applic DAILY TOPIC 03/15/18 09:00 04/13/18 12:29 03/16/18 08:36 Tamsulosin HCl (Flomax) 0.4 mg BEDTIME ORAL 03/14/18 21:00 04/05/18 20:59 03/16/18 23:53 Temazepam (Restoril) 15 mg HSPRN PRN ORAL Insomnia 03/14/18 15:15 03/21/18 15:14 Vancomycin HCl (Vanco rx to dose) 1 ea DAILY PRN MISC Per rx protocol 03/15/18 11:00 04/14/18 10:59 Vancomycin HCl 500 mg/Dextrose 110 ml @ 110 mls/hr Q12HR@0100,1300 IVPB 03/16/18 01:00 03/21/18 00:59 Future Hold Zinc Sulfate (Zinc Sulfate) 220 mg DAILY NG 03/15/18 09:00 03/20/18 09:01 03/16/18 08:34 Pacheco Umana MD Mar 17, 2018 08:27
[2018-03-17] MEDS: Dakin's 0.125% Soln (Quarter Strength) 16oz TOPIC SCH (08:38)
[2018-03-17] MEDS: Cefepime HCl 2 GM in D5W 110 ML IV SCH (08:38)
[2018-03-17] MEDS: Zinc Sulfate 220mg cap NG SCH (08:38)
[2018-03-17] MEDS: Magnesium Oxide 400mg tab ORAL SCH (08:40)
[2018-03-17] MEDS: Heparin 5000 units/ml inj SUBQ SCH ×2 (08:41→21:18)
[2018-03-17] MEDS: Atenolol 25mg tab NG SCH (08:45)
[2018-03-17] MEDS: Ascorbic Acid 500mg tab NG SCH ×2 (09:08→17:42)
[2018-03-17] MEDS: Acetaminophen 650mg/20.3ml NG PRN (09:08)
[2018-03-17 12:00] VITALS: BP 94/55
[2018-03-17 16:00] VITALS: BP 96/54
--- NOTE | 2018-03-17 16:33 | Internal Med Progress Note ---
Subjective Date of Service: Mar 17, 2018 Physician Name Shankar Betts Attending Physician Davian Scott MD Current Medications Medications (Trade) Dose Ordered Sig/Cele Route PRN Reason Start Time Stop Time Status Last Admin Dose Admin Acetaminophen (Tylenol) 650 mg Q4H PRN NG fever (temp>100.5F) 03/14/18 16:00 04/05/18 15:52 03/17/18 09:08 Al Hydroxide/Mg Hydroxide (Mylanta II) 30 ml Q6H PRN NG dyspepsia 03/14/18 16:00 04/05/18 15:52 Ascorbic Acid (Vitamin C) 500 mg TWICE A DAY NG 03/14/18 18:00 04/10/18 17:59 03/17/18 09:08 Atenolol (Tenormin) 25 mg DAILY NG 03/15/18 09:00 04/06/18 08:59 03/16/18 08:35 Cefepime HCl 2 gm/ Dextrose 110 ml @ 220 mls/hr DAILY IV 03/15/18 09:00 03/19/18 08:59 Chlorhexidine Gluconate (Sahra-Hex 2%) 1 applic DAILY@2000 TOPIC 03/14/18 20:00 04/13/18 19:59 03/16/18 23:53 Dextrose/ Electrolytes 1,000 ml @ 50 mls/hr Q20H IV 03/14/18 15:15 04/09/18 17:10 Gabapentin (Neurontin) 300 mg THREE TIMES A DAY NG 03/14/18 18:00 04/05/18 17:59 03/17/18 13:15 Heparin Sodium (Porcine) (Heparin 5000 units/ml) 5,000 units EVERY 12 HOURS SUBQ 03/14/18 21:00 04/05/18 20:59 03/17/18 08:41 Nitroglycerin (Ntg) 0.4 mg Q5M PRN SL Prn Chest Pain 03/14/18 15:20 04/05/18 17:10 Olanzapine (ZyPREXA) 2.5 mg Q6H PRN NG agitation 03/14/18 16:00 04/07/18 15:53 Ondansetron HCl (Zofran) 4 mg Q6H PRN IVP Nausea & Vomiting 03/14/18 16:00 04/05/18 15:53 Polyethylene Glycol (Miralax) 17 gm DAILYPRN PRN NG Constipation 03/14/18 16:00 04/06/18 15:53 Promethazine HCl/ Codeine (Phenergan with Codeine) 5 ml Q4H PRN NG For Cough 03/14/18 17:15 04/05/18 17:11 Sodium Hypochlorite (Dakin's Quarter Strength) 1 applic DAILY TOPIC 03/15/18 09:00 04/13/18 12:29 03/17/18 08:38 Tamsulosin HCl (Flomax) 0.4 mg BEDTIME ORAL 03/14/18 21:00 04/05/18 20:59 03/16/18 23:53 Temazepam (Restoril) 15 mg HSPRN PRN ORAL Insomnia 03/14/18 15:15 03/21/18 15:14 Vancomycin HCl (Vanco rx to dose) 1 ea DAILY PRN MISC Per rx protocol 03/15/18 11:00 04/14/18 10:59 Vancomycin HCl 500 mg/Dextrose 110 ml @ 110 mls/hr Q12HR@0100,1300 IVPB 03/16/18 01:00 03/21/18 00:59 Future Hold Zinc Sulfate (Zinc Sulfate) 220 mg DAILY NG 03/15/18 09:00 03/20/18 09:01 03/17/18 08:38 Allergies: Coded Allergies: No Known Allergies (Unverified , 03/06/18) ROS Limited/Unobtainable: Yes Subjective 87 YO F admitted with hematuria and gen weakness. Now pyelonephritis and sepsis. Cover for Int Med-Dr Scott. PEG postponed-see GI note. Lost IV access -Needs PICC Objective Last Vital Signs Date Time Temp Pulse Resp B/P (MAP) Pulse Ox O2 Delivery O2 Flow Rate FiO2 03/17/18 12:00 97.7 95 20 94/55 (68) 97 03/17/18 08:57 Nasal Cannula 3.0 03/15/18 21:28 28 Laboratory Tests Test 03/17/18 05:33 White Blood Count 10.5 K/UL (4.8-10.8) Red Blood Count 2.65 M/UL (4.20-5.40) L Hemoglobin 8.1 G/DL (12.0-16.0) L Hematocrit 24.1 % (37.0-47.0) L Mean Corpuscular Volume 91 FL (80-99) Mean Corpuscular Hemoglobin 30.5 PG (27.0-31.0) Mean Corpuscular Hemoglobin Concent 33.5 G/DL (32.0-36.0) Red Cell Distribution Width 14.1 % (11.6-14.8) Platelet Count 243 K/UL (150-450) Mean Platelet Volume 5.0 FL (6.5-10.1) L Neutrophils (%) (Auto) 73.3 % (45.0-75.0) Lymphocytes (%) (Auto) 15.7 % (20.0-45.0) L Monocytes (%) (Auto) 9.2 % (1.0-10.0) Eosinophils (%) (Auto) 1.1 % (0.0-3.0) Basophils (%) (Auto) 0.7 % (0.0-2.0) Sodium Level 136 MMOL/L (136-145) Potassium Level 4.5 MMOL/L (3.5-5.1) Chloride Level 102 MMOL/L (98-107) Carbon Dioxide Level 32 MMOL/L (21-32) Anion Gap 2 mmol/L (5-15) L Blood Urea Nitrogen 12 mg/dL (7-18) Creatinine 0.4 MG/DL (0.55-1.30) L Estimat Glomerular Filtration Rate mL/min (>60) Glucose Level 93 MG/DL (74-106) Calcium Level 8.3 MG/DL (8.5-10.1) L Intake and Output 03/16/18 03/17/18 19:00 07:00 Intake Total 1020 ml 780 ml Output Total 1350 ml 750 ml Balance -330 ml 30 ml Intake Free Water 900 ml 300 ml Tube Feeding 120 ml 480 ml Output Urine Total 1250 ml 750 ml Stool Total 100 ml # Voids 100 # Bowel Movements 150 Objective PHYSICAL EXAMINATION: GENERAL: The patient is a well-developed and well-nourished white female, in no apparent distress. HEENT: Eyes, pupils are equal and responsive to light and accommodation. Extraocular movements are intact. NECK: Supple without lymphadenopathy. CHEST: Decreased breath sounds at bilateral bases. Otherwise, clear to auscultation without wheezes or rales. CARDIOVASCULAR: Tachycardic. Regular rate and rhythm. S1, S2 are normal without murmurs, rubs, or gallops. ABDOMEN: Soft, nontender, and nondistended. Positive bowel sounds. No evidence of hepatosplenomegaly. Currently, no rebound or guarding noted. EXTREMITIES: Negative for clubbing, cyanosis, or edema. RECTAL/GENITAL: Deferred. NEUROLOGIC: Cranial nerves II through XII are grossly intact without focal deficits. Assessment/Plan Problem List: (1) Dysphagia Assessment & Plan: PEG postponed by son-see GI note (2) Pyelonephritis Assessment & Plan: Pseudamonas and strep. See ID note-Continue cefepime and vanco (3) Sepsis (4) HTN (hypertension) Assessment & Plan: Currently hypotensive (5) Hypercholesteremia (6) Sacral decubitus ulcer, stage IV Assessment & Plan: See surgery note-dr Ramsay (7) Urinary tract infection Assessment & Plan: pseudamonas; continue cefepime per ID (8) Pneumonia Assessment & Plan: MRSA. Continue vanco per ID Assessment/Plan Difficult IV access-needs PICC Shankar Betts MD Mar 17, 2018 16:33
[2018-03-17 20:00] VITALS: BP 114/57
--- NOTE | 2018-03-17 20:21 | General Progress Note ---
Assessment/Plan Assessment/Plan Assessment (1) Severe malnutrition / dysphagia ICD Codes: E43 - Unspecified severe protein-calorie malnutrition SNOMED: 75645972 (2) Encounter for PEG (percutaneous endoscopic gastrostomy) ICD Codes: Z43.1 - Encounter for attention to gastrostomy SNOMED: 559493269, 500321744 (3) Dehydration ICD Codes: E86.0 - Dehydration SNOMED: 13439599 (4) Dysphasia ICD Codes: R47.02 - Dysphasia SNOMED: 84766144 (5) Atrial fibrillation with RVR ICD Codes: I48.91 - Unspecified atrial fibrillation SNOMED: 406658888765517 (6) Decub ulcers Assessment/Plan NGTF pending PEG consent - message left with family Elevated WBC - Pyelo - on Vanco and Cefepime drop in H&H without any obvious bleeding fu CBC anemia work up Subjective Allergies: Coded Allergies: No Known Allergies (Unverified , 03/06/18) Subjective nonverbal messages left with son yesterday and today and today to call back to discuss PEG multiple wounds and decubs patient extremely contracted in all 4 Objective Last 24 Hour Vital Signs Date Time Temp Pulse Resp B/P (MAP) Pulse Ox O2 Delivery O2 Flow Rate FiO2 03/17/18 19:50 99 20 Nasal Cannula 2.0 28 03/17/18 19:38 98 Nasal Cannula 2.0 28 03/17/18 19:38 Nasal Cannula 2.0 28 03/17/18 16:00 97.6 91 20 96/54 (68) 95 03/17/18 12:00 97.7 95 20 94/55 (68) 97 03/17/18 09:38 98.4 03/17/18 08:57 Nasal Cannula 3.0 03/17/18 08:45 101 99/55 03/17/18 08:00 98.4 101 20 99/55 (70) 92 03/17/18 04:00 98.2 74 20 105/58 (74) 97 03/17/18 00:00 98.1 86 20 99/62 (74) 97 03/16/18 21:00 Nasal Cannula 2.0 Intake and Output 03/16/18 03/17/18 19:00 07:00 Intake Total 1020 ml 780 ml Output Total 1350 ml 750 ml Balance -330 ml 30 ml Intake Free Water 900 ml 300 ml Tube Feeding 120 ml 480 ml Output Urine Total 1250 ml 750 ml Stool Total 100 ml # Voids 100 # Bowel Movements 150 Laboratory Tests 03/17/18 05:33: White Blood Count 10.5, Red Blood Count 2.65L, Hemoglobin 8.1L, Hematocrit 24.1L , Mean Corpuscular Volume 91, Mean Corpuscular Hemoglobin 30.5, Mean Corpuscular Hemoglobin Concent 33.5, Red Cell Distribution Width 14.1, Platelet Count 243, Mean Platelet Volume 5.0L, Neutrophils (%) (Auto) 73.3, Lymphocytes ( %) (Auto) 15.7L, Monocytes (%) (Auto) 9.2, Eosinophils (%) (Auto) 1.1, Basophils (%) (Auto) 0.7, Sodium Level 136, Potassium Level 4.5, Chloride Level 102, Carbon Dioxide Level 32, Anion Gap 2L, Blood Urea Nitrogen 12, Creatinine 0.4L, Estimat Glomerular Filtration Rate , Glucose Level 93, Calcium Level 8.3L Height (Feet): 5 Height (Inches): 3.00 Weight (Pounds): 164 Objective Eldely WW Non verbal Chest CTA RR soft ND OBS (+++) contracted and twisted extremities Jacque Hernandez MD Mar 17, 2018 20:21
[2018-03-17] MEDS: Dyna-Hex 2% Top Sol 2oz TOPIC SCH (21:16)
[2018-03-17] MEDS: Tamsulosin 0.4mg cap ORAL SCH (21:17)
[2018-03-18] VITALS (7 sets, daily range): BP systolic 82–148; BP diastolic 50–85
--- NOTE | 2018-03-18 01:50 | General Progress Note ---
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 ativan prn Subjective Date patient seen: Mar 17, 2018 Neurologic/Psychiatric: Reports: anxiety, depressed Allergies: Coded Allergies: No Known Allergies (Unverified , 03/06/18) Subjective confused episodes of agitation. Objective Last 24 Hour Vital Signs Date Time Temp Pulse Resp B/P (MAP) Pulse Ox O2 Delivery O2 Flow Rate FiO2 03/17/18 21:00 Nasal Cannula 3.0 03/17/18 20:00 97.7 94 20 114/57 (76) 98 03/17/18 19:50 99 20 Nasal Cannula 2.0 28 03/17/18 19:38 98 Nasal Cannula 2.0 28 03/17/18 19:38 Nasal Cannula 2.0 28 03/17/18 16:00 97.6 91 20 96/54 (68) 95 03/17/18 12:00 97.7 95 20 94/55 (68) 97 03/17/18 09:38 98.4 03/17/18 08:57 Nasal Cannula 3.0 03/17/18 08:45 101 99/55 03/17/18 08:00 98.4 101 20 99/55 (70) 92 03/17/18 04:00 98.2 74 20 105/58 (74) 97 Intake and Output 03/17/18 03/18/18 19:00 07:00 Intake Total 960 ml Output Total 1600 ml 1600 ml Balance -640 ml -1600 ml Tube Feeding 60 ml Blood Product 900 ml Output Urine Total 1600 ml 1600 ml # Voids 1 # Bowel Movements 100 Laboratory Tests 03/17/18 05:33: White Blood Count 10.5, Red Blood Count 2.65L, Hemoglobin 8.1L, Hematocrit 24.1L , Mean Corpuscular Volume 91, Mean Corpuscular Hemoglobin 30.5, Mean Corpuscular Hemoglobin Concent 33.5, Red Cell Distribution Width 14.1, Platelet Count 243, Mean Platelet Volume 5.0L, Neutrophils (%) (Auto) 73.3, Lymphocytes ( %) (Auto) 15.7L, Monocytes (%) (Auto) 9.2, Eosinophils (%) (Auto) 1.1, Basophils (%) (Auto) 0.7, Sodium Level 136, Potassium Level 4.5, Chloride Level 102, Carbon Dioxide Level 32, Anion Gap 2L, Blood Urea Nitrogen 12, Creatinine 0.4L, Estimat Glomerular Filtration Rate , Glucose Level 93, Calcium Level 8.3L Height (Feet): 5 Height (Inches): 3.00 Weight (Pounds): 164 General Appearance: alert, confused, agitated Bj Martinez MD Mar 18, 2018 01:50
--- NOTE | 2018-03-18 04:05 | Diagnostic Imaging Report ---
EXAM: XR Chest, 1 View CLINICAL HISTORY: SOB TECHNIQUE: Frontal view of the chest. COMPARISON: Chest radiograph dated 03/08/18. FINDINGS: Lungs: Density projecting over the left thorax is most consistent with overlying breast tissue. There is patchy opacity at the right lower lung not seen on the previous study. Right basilar atelectasis also seen. Pleural space: Unremarkable. No pneumothorax. Heart: Unremarkable. No cardiomegaly. Mediastinum: Unremarkable. Bones/joints: Unremarkable. Vasculature: The aortic arch is calcified. Tubes, lines and devices: Nasogastric tube is present in the stomach. IMPRESSION: Right lower lung infiltrate new compared to the previous study.
[2018-03-18] MEDS ORDERED: Levalbuterol Inh UD 1.25mg/0.5ml HHN ONE (04:45)
[2018-03-18] MEDS ORDERED: Ipratropium 0.02% Inh Soln 2.5ml UD HHN PRN (04:45)
[2018-03-18] MEDS ORDERED: Ipratropium 0.02% Inh Soln 2.5ml UD HHN ONE (04:45)
[2018-03-18] MEDS ORDERED: Nitroglycerin Subl 0.4mg tab SL PRN (04:45)
[2018-03-18] MEDS ORDERED: Levalbuterol Inh UD 1.25mg/0.5ml HHN PRN (04:45)
[2018-03-18] MEDS ORDERED: Cefepime HCl 1 GM in D5W 55 ML IVPB SCH (05:00)
[2018-03-18] MEDS ORDERED: Promethazine/Codeine 5ml UD NG PRN (05:15)
[2018-03-18] MEDS ORDERED: Acetaminophen 650mg/20.3ml NG PRN ×2 (05:45→08:00)
[2018-03-18] MEDS: D5 1/2NS w/KCL 10meq 1,000 ML IV SCH (05:59)
[2018-03-18] MEDS: Cefepime HCl 1 GM in D5W 55 ML IVPB SCH ×3 (06:14→20:23)
[2018-03-18] MEDS ORDERED: Ipratropium 0.02% Inh Soln 2.5ml UD HHN SCH (07:00)
[2018-03-18] MEDS ORDERED: Atenolol 25mg tab NG SCH (09:00)
[2018-03-18] MEDS ORDERED: Heparin 2000 units/Ns 1000ml INJ PRN (09:21)
[2018-03-18] MEDS: Zinc Sulfate 220mg cap NG SCH (09:27)
[2018-03-18] MEDS: Ascorbic Acid 500mg tab NG SCH ×2 (09:27→17:12)
[2018-03-18] MEDS: Dakin's 0.125% Soln (Quarter Strength) 16oz TOPIC SCH (09:27)
[2018-03-18] MEDS: Heparin 5000 units/ml inj SUBQ SCH ×2 (09:28→20:10)
[2018-03-18 09:32] LABS: BASOPHILS % (AUTO) 1.1 % (0.0-2.0); HEMATOCRIT 26.5 % (37.0-47.0); HEMOGLOBIN 8.8 G/DL (12.0-16.0); LYMPHOCYTES % (AUTO) 9.3 % (20.0-45.0); MEAN CORPUSCULAR VOLUME 91 FL (80-99); MONOCYTES % (AUTO) 7.7 % (1.0-10.0); NEUTROPHILS % (AUTO) 81.9 % (45.0-75.0); PLATELET COUNT 279 K/UL (150-450); RED CELL DISTRIBUTION WIDTH 13.8 % (11.6-14.8); WHITE BLOOD COUNT 16.1 K/UL (4.8-10.8)
[2018-03-18 09:35] LABS: ANION GAP 4 mmol/L (5-15); BLOOD UREA NITROGEN 14 mg/dL (7-18); CALCIUM 8.2 MG/DL (8.5-10.1); CARBON DIOXIDE 32 MMOL/L (21-32); CHLORIDE 99 MMOL/L (98-107); CREATININE 0.6 MG/DL (0.55-1.30); POTASSIUM 4.7 MMOL/L (3.5-5.1); SODIUM 135 MMOL/L (136-145)
[2018-03-18] MEDS ORDERED: Mylanta II UD 30ml NG PRN (10:00)
[2018-03-18] MEDS ORDERED: OLANZapine 2.5mg tab NG PRN (10:00)
--- NOTE | 2018-03-18 13:12 | Internal Med Progress Note ---
Subjective Date of Service: Mar 18, 2018 Physician Name Shankar Betts Attending Physician Davian Scott MD Current Medications Medications (Trade) Dose Ordered Sig/Cele Route PRN Reason Start Time Stop Time Status Last Admin Dose Admin Acetaminophen (Tylenol) 650 mg Q4H PRN NG fever (temp>100.5F) 03/18/18 05:45 04/17/18 05:44 03/18/18 06:00 Al Hydroxide/Mg Hydroxide (Mylanta II) 30 ml Q6H PRN NG dyspepsia 03/18/18 10:00 04/05/18 15:52 Ascorbic Acid (Vitamin C) 500 mg TWICE A DAY NG 03/18/18 09:00 04/10/18 17:59 03/18/18 09:27 Atenolol (Tenormin) 25 mg DAILY NG 03/18/18 09:00 04/06/18 08:59 Cefepime HCl 1 gm/ Dextrose 55 ml @ 110 mls/hr EVERY 12 HOURS IVPB 03/18/18 05:00 03/25/18 04:59 03/18/18 06:14 Chlorhexidine Gluconate (Sahra-Hex 2%) 1 applic DAILY@2000 TOPIC 03/18/18 20:00 04/13/18 19:59 Dextrose/ Electrolytes 1,000 ml @ 50 mls/hr Q20H IV 03/18/18 04:45 04/09/18 17:10 03/18/18 05:59 Gabapentin (Neurontin) 300 mg THREE TIMES A DAY NG 03/18/18 09:00 04/05/18 17:59 03/18/18 09:26 Heparin Sodium (Porcine) (Heparin 5000 units/ml) 5,000 units EVERY 12 HOURS SUBQ 03/18/18 09:00 04/05/18 20:59 03/18/18 09:28 Heparin Sodium/ Sodium Chloride (Heparin 2000 units/Ns 1000ml premix) 2,000 unit ONCE PRN INJ PICC 03/18/18 09:21 03/18/18 23:59 Ipratropium [place] (Atrovent) 500 mcg Q8HRT PRN HHN Shortness of Breath 03/18/18 04:45 03/23/18 04:44 03/18/18 05:33 Levalbuterol HCl (Xopenex) 1.25 mg Q8HRT PRN HHN Shortness of Breath 03/18/18 04:45 03/23/18 04:44 03/18/18 05:33 Nitroglycerin (Ntg) 0.4 mg Q5M PRN SL Prn Chest Pain 03/18/18 04:45 04/05/18 17:10 Olanzapine (ZyPREXA) 2.5 mg Q6H PRN NG agitation 03/18/18 10:00 04/07/18 15:53 Ondansetron HCl (Zofran) 4 mg Q6H PRN IVP Nausea & Vomiting 03/18/18 10:00 04/05/18 15:53 Polyethylene Glycol (Miralax) 17 gm DAILYPRN PRN NG Constipation 03/18/18 16:00 04/06/18 15:53 Promethazine HCl/ Codeine (Phenergan with Codeine) 5 ml Q4H PRN NG For Cough 03/18/18 05:15 04/05/18 17:11 Sodium Hypochlorite (Dakin's Quarter Strength) 1 applic DAILY TOPIC 03/18/18 09:00 04/13/18 12:29 03/18/18 09:27 Tamsulosin HCl (Flomax) 0.4 mg BEDTIME ORAL 03/18/18 21:00 04/05/18 20:59 Temazepam (Restoril) 15 mg HSPRN PRN ORAL Insomnia 03/18/18 15:15 03/21/18 15:14 Vancomycin HCl (Vanco rx to dose) 1 ea DAILY PRN MISC Per rx protocol 03/18/18 09:00 04/14/18 10:59 Vancomycin HCl 500 mg/Dextrose 110 ml @ 110 mls/hr Q12HR@0100,1300 IVPB 03/16/18 01:00 03/21/18 00:59 Future hold Zinc Sulfate (Zinc Sulfate) 220 mg DAILY NG 03/18/18 09:00 03/20/18 09:01 03/18/18 09:27 Allergies: Coded Allergies: No Known Allergies (Unverified , 03/06/18) ROS Limited/Unobtainable: Yes Subjective 87 YO F admitted with hematuria and gen weakness. Now pyelonephritis and sepsis. Cover for Int Med-Dr Scott. PEG postponed-see GI note. Lost IV access -Needs PICC. Transferred to [facility] overnight due to increased respiratory distress -see rapid response note. Objective Last Vital Signs Date Time Temp Pulse Resp B/P (MAP) Pulse Ox O2 Delivery O2 Flow Rate FiO2 03/18/18 12:00 Nasal Cannula 3.0 03/18/18 09:00 112 100/50 03/18/18 08:00 98.1 22 93 03/18/18 05:45 28 Laboratory Tests Test 03/18/18 02:49 03/18/18 09:05 Arterial Blood pH 7.522 (7.350-7.450) Arterial Blood Partial Pressure CO2 43.0 mmHg (35.0-45.0) Arterial Blood Partial Pressure O2 71.1 mmHg (75.0-100.0) L Arterial Blood HCO3 34.5 mmol/L (22.0-26.0) H Arterial Blood Oxygen Saturation 94.6 % (95-100) L Arterial Blood Base Excess 10.6 (-2-2) *H Temo Test Positive White Blood Count 16.1 K/UL (4.8-10.8) #H Red Blood Count 2.90 M/UL (4.20-5.40) L Hemoglobin 8.8 G/DL (12.0-16.0) L Hematocrit 26.5 % (37.0-47.0) L Mean Corpuscular Volume 91 FL (80-99) Mean Corpuscular Hemoglobin 30.5 PG (27.0-31.0) Mean Corpuscular Hemoglobin Concent 33.4 G/DL (32.0-36.0) Red Cell Distribution Width 13.8 % (11.6-14.8) Platelet Count 279 K/UL (150-450) Mean Platelet Volume 4.8 FL (6.5-10.1) L Neutrophils (%) (Auto) 81.9 % (45.0-75.0) H Lymphocytes (%) (Auto) 9.3 % (20.0-45.0) L Monocytes (%) (Auto) 7.7 % (1.0-10.0) Eosinophils (%) (Auto) 0.0 % (0.0-3.0) Basophils (%) (Auto) 1.1 % (0.0-2.0) Sodium Level 135 MMOL/L (136-145) L Potassium Level 4.7 MMOL/L (3.5-5.1) Chloride Level 99 MMOL/L (98-107) Carbon Dioxide Level 32 MMOL/L (21-32) Anion Gap 4 mmol/L (5-15) L Blood Urea Nitrogen 14 mg/dL (7-18) Creatinine 0.6 MG/DL (0.55-1.30) Estimat Glomerular Filtration Rate mL/min (>60) Glucose Level 113 MG/DL (74-106) H Calcium Level 8.2 MG/DL (8.5-10.1) L Intake and Output 03/17/18 03/18/18 18:59 06:59 Intake Total 960 ml 55 ml Output Total 1600 ml 2000 ml Balance -640 ml -1945 ml IV Total 55 ml Tube Feeding 60 ml Blood Product 900 ml Output Urine Total 1600 ml 2000 ml # Voids 1 # Bowel Movements 100 Objective PHYSICAL EXAMINATION: GENERAL: The patient is a well-developed and well-nourished white female, in no apparent distress. HEENT: Eyes, pupils are equal and responsive to light and accommodation. Extraocular movements are intact. NECK: Supple without lymphadenopathy. CHEST: Decreased breath sounds at bilateral bases. Otherwise, clear to auscultation without wheezes or rales. CARDIOVASCULAR: Tachycardic. Regular rate and rhythm. S1, S2 are normal without murmurs, rubs, or gallops. ABDOMEN: Soft, nontender, and nondistended. Positive bowel sounds. No evidence of hepatosplenomegaly. Currently, no rebound or guarding noted. EXTREMITIES: Negative for clubbing, cyanosis, or edema. RECTAL/GENITAL: Deferred. NEUROLOGIC: Cranial nerves II through XII are grossly intact without focal deficits. Assessment/Plan Problem List: (1) Dysphagia Assessment & Plan: PEG postponed by son-see GI note (2) Pyelonephritis Assessment & Plan: Pseudamonas and strep. See ID note-Continue cefepime and vanco (3) Sepsis (4) HTN (hypertension) Assessment & Plan: Currently hypotensive (5) Hypercholesteremia (6) Sacral decubitus ulcer, stage IV Assessment & Plan: See surgery note-dr Ramsay (7) Urinary tract infection Assessment & Plan: pseudamonas; continue cefepime per ID (8) Pneumonia Assessment & Plan: New RLL. Previously MRSA. Continue vanco per ID Assessment/Plan Difficult IV access-needs PICC Shankar Betts MD Mar 18, 2018 13:12
[2018-03-18] MEDS ORDERED: Vancomycin 1250mg/D5W 250ml IVPB ONE (14:00)
--- NOTE | 2018-03-18 15:05 | Cardiac Electrophysiology PN ---
Subjective Subjective [id number] Objective Last 24 Hour Vital Signs Date Time Temp Pulse Resp B/P (MAP) Pulse Ox O2 Delivery O2 Flow Rate FiO2 03/18/18 12:00 99.0 116 16 129/65 (86) 92 03/18/18 12:00 Nasal Cannula 3.0 03/18/18 11:33 125 03/18/18 09:00 112 100/50 03/18/18 08:07 125 03/18/18 08:00 98.1 111 22 100/50 (67) 93 03/18/18 08:00 Nasal Cannula 3.0 03/18/18 06:45 99.4 03/18/18 05:45 137 24 96 Nasal Cannula 2.0 28 03/18/18 05:33 134 24 94 Nasal Cannula 2.0 28 03/18/18 04:30 100.9 137 40 100/73 (82) 98 03/18/18 04:00 140 03/18/18 04:00 99.1 136 28 103/59 (74) 94 03/18/18 00:00 99.1 108 24 148/85 (106) 100 03/17/18 21:00 Nasal Cannula 3.0 03/17/18 20:00 97.7 94 20 114/57 (76) 98 03/17/18 19:50 99 20 Nasal Cannula 2.0 28 03/17/18 19:38 98 Nasal Cannula 2.0 28 03/17/18 19:38 Nasal Cannula 2.0 28 03/17/18 16:00 97.6 91 20 96/54 (68) 95 Intake and Output 03/17/18 03/18/18 18:59 06:59 Intake Total 960 ml 55 ml Output Total 1600 ml 2000 ml Balance -640 ml -1945 ml IV Total 55 ml Tube Feeding 60 ml Blood Product 900 ml Output Urine Total 1600 ml 2000 ml # Voids 1 # Bowel Movements 100 Laboratory Tests Test 03/18/18 02:49 03/18/18 09:05 Arterial Blood pH 7.522 (7.350-7.450) Arterial Blood Partial Pressure CO2 43.0 mmHg (35.0-45.0) Arterial Blood Partial Pressure O2 71.1 mmHg (75.0-100.0) L Arterial Blood HCO3 34.5 mmol/L (22.0-26.0) H Arterial Blood Oxygen Saturation 94.6 % (95-100) L Arterial Blood Base Excess 10.6 (-2-2) *H Temo Test Positive White Blood Count 16.1 K/UL (4.8-10.8) #H Red Blood Count 2.90 M/UL (4.20-5.40) L Hemoglobin 8.8 G/DL (12.0-16.0) L Hematocrit 26.5 % (37.0-47.0) L Mean Corpuscular Volume 91 FL (80-99) Mean Corpuscular Hemoglobin 30.5 PG (27.0-31.0) Mean Corpuscular Hemoglobin Concent 33.4 G/DL (32.0-36.0) Red Cell Distribution Width 13.8 % (11.6-14.8) Platelet Count 279 K/UL (150-450) Mean Platelet Volume 4.8 FL (6.5-10.1) L Neutrophils (%) (Auto) 81.9 % (45.0-75.0) H Lymphocytes (%) (Auto) 9.3 % (20.0-45.0) L Monocytes (%) (Auto) 7.7 % (1.0-10.0) Eosinophils (%) (Auto) 0.0 % (0.0-3.0) Basophils (%) (Auto) 1.1 % (0.0-2.0) Sodium Level 135 MMOL/L (136-145) L Potassium Level 4.7 MMOL/L (3.5-5.1) Chloride Level 99 MMOL/L (98-107) Carbon Dioxide Level 32 MMOL/L (21-32) Anion Gap 4 mmol/L (5-15) L Blood Urea Nitrogen 14 mg/dL (7-18) Creatinine 0.6 MG/DL (0.55-1.30) Estimat Glomerular Filtration Rate mL/min (>60) Glucose Level 113 MG/DL (74-106) H Calcium Level 8.2 MG/DL (8.5-10.1) L Fredrick Burk MD Mar 18, 2018 15:05
[2018-03-18] MEDS: Vancomycin 500mg/D5W 110ml IVPB SCH ×2 (15:22)
[2018-03-18] MEDS ORDERED: NS 275 ML IVPB SCH ×2 (15:30)
[2018-03-18] MEDS ORDERED: Atenolol 25mg tab ORAL SCH (16:00)
[2018-03-18] MEDS ORDERED: Miralax 17gm pkt NG PRN (16:00)
--- NOTE | 2018-03-18 16:45 | Consultation ---
DATE OF CONSULTATION: 03/18/2018 CARDIOLOGY CONSULTATION CONSULTING PHYSICIAN: Ulysses Rodriugez REFERRING PHYSICIAN: Davian Scott M.D. REASON FOR CONSULTATION: Atrial fibrillation with rapid ventricular response. HISTORY OF PRESENT ILLNESS: The patient is an 87-year-old lady with history of colostomy, who is a [place] resident as well as hypertension, dysphagia, and sacral decubitus was admitted for new right lower lobe pneumonia. The patient previously had MRSA. The patient subsequently developed atrial fibrillation with rapid ventricular response. Cardiology consultation was obtained for further evaluation and management. REVIEW OF SYSTEMS: Cannot be obtained as the patient is currently nonverbal. PAST MEDICAL HISTORY: As mentioned above. FAMILY HISTORY: Noncontributory. SOCIAL HISTORY: She lives in detention. There is no smoking or drinking. PHYSICAL EXAMINATION: VITAL SIGNS: Blood pressure is 110/65, pulse 125, respirations 16, and temperature 99. HEAD AND NECK: No JVD. LUNGS: Coarse rhonchi. CARDIOVASCULAR: Irregular tachycardic. S1 and S2 with no gallop. ABDOMEN: Status post colostomy. EXTREMITIES: No pitting edema . LABORATORY DATA: Her labs show white count of 16.1, hemoglobin 8.8, hematocrit 26.5, and platelet count is 279,000. Sodium is 135, potassium 4.7, BUN of 14, creatinine of 0.6, and glucose of 113. Vancomycin is 13. INR is 1.1. Urinalysis shows too numerous to count WBC and positive leukocyte esterase. ASSESSMENT AND PLAN: 1. Atrial fibrillation with rapid ventricular response. The patient is on atenolol 25 mg daily that increased to 25 mg b.i.d. Please hold off on anticoagulation at this time. Watch the patient on telemetry. Also given echocardiogram to evaluate for ejection fraction and wall motion abnormality and completely rule out myocardial infarction protocol. 2. Urosepsis. The patient is on IV antibiotic for pneumonia, IV antibiotic per ID. 3. Hypertension, on atenolol. 4. Sacral decubitus ulcer. 5. Dementia. 6. Dysphagia. The patient may need G-tube placement. Thank you very much, Dr. Scott, for allowing me to participate in the care of this patient. Please do not hesitate to contact me for any questions regarding my evaluation. Fredrick Burk M.D. DR: TON JOB#: [id number] CC:
--- NOTE | 2018-03-18 17:13 | Pulmonology Progress Note ---
Assessment/Plan Assessment/Plan Pulmonary Progress Note HPI This patient is brought in by EMS. Per report, the patient has had failure to thrive and generalized weakness. They also note hematuria. The patient is nonverbal and unable to articulate any complaints. She has also stopped eating per the medical record and nursing notes. There is no other history of present illness available or documented. New RLL Infiltrate on todays CXR Allergies: No Known Allergies Past Medical History: HTN, AFib, dementia, HL psych hx, other - contractures, DU, muscle wasting, previous G tube Social History: Denies: smoking, alcohol use, drug use All Other Systems: limited Physical Exam Vital Signs Noted General Appearance: no apparent distress, alert, GCS 15, non-toxic, other - frail, elderly, chronically ill, contracted, non-verbal, Chronically Ill Head: normocephalic, atraumatic Eyes: bilateral eye normal inspection, bilateral eye PERRL ENT: no angioedema Neck: other - flexed. contracted. Respiratory: chest non-tender, lungs clear, normal breath sounds, no respiratory distress, no retraction, no accessory muscle use, speaking full sentences Cardiovascular #1: no edema, tachycardia, systolic murmur, irregularly irregular Gastrointestinal: normal bowel sounds, non tender, soft, non-distended, no guarding, no rebound, other - colostomy bag in place. Rectal: deferred Musculoskeletal: back normal, gait/station normal, normal range of motion, non- tender Neurologic: alert, other - non-focal. Contracted, non-verbal Psychiatric: mood/affect normal Skin: no rash, warm/dry, well hydrated, other - Multiple DU Impression: Pyelonephritis Sepsis Pneumonia Hypernatremia Lactic acid acidosis HTN, AFib, Dementia, HL psych hx, other - contractures, DU, muscle wasting, previous G tube Plan IV Antibiotics O2 PRN PPX IVF PTAmeds Aspiration precautions ST eval Laboratory Tests Test 03/06/18 10:12 03/06/18 10:25 03/06/18 10:47 White Blood Count 15.7 K/UL (4.8-10.8) H Red Blood Count 4.60 M/UL (4.20-5.40) Hemoglobin 13.3 G/DL (12.0-16.0) Hematocrit 42.1 % (37.0-47.0) Mean Corpuscular Volume 91 FL (80-99) Mean Corpuscular Hemoglobin 28.9 PG (27.0-31.0) Mean Corpuscular Hemoglobin Concent 31.7 G/DL (32.0-36.0) L Red Cell Distribution Width 13.3 % (11.6-14.8) Platelet Count 246 K/UL (150-450) Mean Platelet Volume 5.4 FL (6.5-10.1) L Neutrophils (%) (Auto) 77.5 % (45.0-75.0) H Lymphocytes (%) (Auto) 13.9 % (20.0-45.0) L Monocytes (%) (Auto) 8.1 % (1.0-10.0) Eosinophils (%) (Auto) 0.1 % (0.0-3.0) Basophils (%) (Auto) 0.4 % (0.0-2.0) Prothrombin Time 12.4 SEC (9.30-11.50) H Prothrombin Time INR 1.2 (0.9-1.1) H PTT 29 SEC (23-33) Sodium Level 147 MMOL/L (136-145) H Potassium Level 4.8 MMOL/L (3.5-5.1) Chloride Level 108 MMOL/L (98-107) H Carbon Dioxide Level 30 MMOL/L (21-32) Anion Gap 9 mmol/L (5-15) Blood Urea Nitrogen 18 mg/dL (7-18) Creatinine 0.8 MG/DL (0.55-1.30) Estimate Glomerular Filtration Rate mL/min (>60) Glucose Level 114 MG/DL (74-106) H Lactic Acid Level 3.60 mmol/L (0.4-2.0) H Calcium Level 9.1 MG/DL (8.5-10.1) Phosphorus Level 3.2 MG/DL (2.5-4.9) Magnesium Level 1.9 MG/DL (1.8-2.4) Total Bilirubin 0.6 MG/DL (0.2-1.0) Aspartate Amino Transferase (AST) 27 U/L (15-37) Alanine Aminotransferase (ALT) 16 U/L (12-78) Alkaline Phosphatase 128 U/L (46-116) H Total Creatine Kinase 59 U/L (26-308) Creatine Kinase MB 1.6 NG/ML (0.0-3.6) Creatine Kinase MB Relative Index 2.7 Total Protein 6.7 G/DL (6.4-8.2) Albumin 2.1 G/DL (3.4-5.0) L Globulin 4.6 g/dL Albumin/Globulin Ratio 0.5 (1.0-2.7) L Troponin I 0.033 ng/mL (0.000-0.056) Urine Color Yellow Urine Appearance Cloudy Urine pH 6 (4.5-8.0) Urine Specific [place] 1.020 (1.005-1.035) Urine Protein 4+ (NEGATIVE) H Urine Glucose (UA) Negative (NEGATIVE) Urine Ketones 3+ (NEGATIVE) H Urine Blood 5+ (NEGATIVE) H Urine Nitrite Negative (NEGATIVE) Urine Bilirubin 1+ (NEGATIVE) H Urine Ictotest Negative (NEGATIVE) Urine Urobilinogen Normal MG/DL (0.0-1.0) Urine Leukocyte Esterase 3+ (NEGATIVE) H Urine RBC 30-40 /HPF (0 - 2) H Urine WBC Tntc /HPF (0 - 2) H Urine Squamous Epithelial Cells Few /LPF (NONE/OCC) Urine Bacteria Few /HPF (NONE) Microbiology Date/Time Source Procedure Growth Status 03/06/18 10:12 Nasal Nares Influenza Types A,B Antigen (NGA) - Final Complete EKG Diagnostic Results Rate: tachycardiac Rhythm: other - S.tachycardia ST Segments: no acute changes Chest X-Ray Diagnostic Results Chest X-Ray Diagnostic Results : Chest X-Ray Ordered: Yes # of Views/Limited/Complete: 1 View Indication: Other EP Interpretation: No Interpretation: other - Questionable opacity RUL Impression: Other - See above Electronically Signed by: Halima Chery DO CXR: 03/18/2018 XR Chest, 1 View CLINICAL HISTORY: SOB TECHNIQUE: Frontal view of the chest. COMPARISON: Chest radiograph dated 03/08/18. FINDINGS: Lungs: Density projecting over the left thorax is most consistent with overlying breast tissue. There is patchy opacity at the right lower lung not seen on the previous study. Right basilar atelectasis also seen. Pleural space: Unremarkable. No pneumothorax. Heart: Unremarkable. No cardiomegaly. Mediastinum: Unremarkable. Bones/joints: Unremarkable. Vasculature: The aortic arch is calcified. Tubes, lines and devices: Nasogastric tube is present in the stomach. IMPRESSION: Right lower lung infiltrate new compared to the previous study. Subjective ROS Limited/Unobtainable: No Allergies: Coded Allergies: No Known Allergies (Unverified , 03/06/18) Objective Last 24 Hour Vital Signs Date Time Temp Pulse Resp B/P (MAP) Pulse Ox O2 Delivery O2 Flow Rate FiO2 03/18/18 16:00 Nasal Cannula 3.0 03/18/18 16:00 110 03/18/18 16:00 98.6 100 22 119/60 (79) 93 03/18/18 15:54 116 129/65 03/18/18 12:00 99.0 116 16 129/65 (86) 92 03/18/18 12:00 Nasal Cannula 3.0 03/18/18 11:33 125 03/18/18 09:00 112 100/50 03/18/18 08:07 125 03/18/18 08:00 98.1 111 22 100/50 (67) 93 03/18/18 08:00 Nasal Cannula 3.0 03/18/18 06:45 99.4 03/18/18 05:45 137 24 96 Nasal Cannula 2.0 28 03/18/18 05:33 134 24 94 Nasal Cannula 2.0 28 03/18/18 04:30 100.9 137 40 100/73 (82) 98 03/18/18 04:00 140 03/18/18 04:00 99.1 136 28 103/59 (74) 94 03/18/18 00:00 99.1 108 24 148/85 (106) 100 03/17/18 21:00 Nasal Cannula 3.0 03/17/18 20:00 97.7 94 20 114/57 (76) 98 03/17/18 19:50 99 20 Nasal Cannula 2.0 28 03/17/18 19:38 98 Nasal Cannula 2.0 28 03/17/18 19:38 Nasal Cannula 2.0 28 Intake and Output 03/17/18 03/18/18 19:00 07:00 Intake Total 960 ml 105 ml Output Total 1600 ml 2000 ml Balance -640 ml -1895 ml IV Total 105 ml Tube Feeding 60 ml Blood Product 900 ml Output Urine Total 1600 ml 2000 ml # Voids 1 # Bowel Movements 100 Laboratory Tests 03/18/18 02:49: Arterial Blood pH 7.522H, Arterial Blood Partial Pressure CO2 43.0, Arterial Blood Partial Pressure O2 71.1L, Arterial Blood HCO3 34.5H, Arterial Blood Oxygen Saturation 94.6L, Arterial Blood Base Excess 10.6*H, Temo Test Positive 03/18/18 09:05: White Blood Count 16.1#H, Red Blood Count 2.90L, Hemoglobin 8.8L, Hematocrit 26.5L, Mean Corpuscular Volume 91, Mean Corpuscular Hemoglobin 30.5, Mean Corpuscular Hemoglobin Concent 33.4, Red Cell Distribution Width 13.8, Platelet Count 279, Mean Platelet Volume 4.8L, Neutrophils (%) (Auto) 81.9H, Lymphocytes (%) (Auto) 9.3L, Monocytes (%) (Auto) 7.7, Eosinophils (%) (Auto) 0.0, Basophils (%) (Auto) 1.1, Sodium Level 135L, Potassium Level 4.7, Chloride Level 99, Carbon Dioxide Level 32, Anion Gap 4L, Blood Urea Nitrogen 14, Creatinine 0.6, Estimat Glomerular Filtration Rate , Glucose Level 113H, Calcium Level 8.2L Current Medications Medications (Trade) Dose Ordered Sig/Cele Route PRN Reason Start Time Stop Time Status Last Admin Dose Admin Acetaminophen (Tylenol) 650 mg Q4H PRN NG fever (temp>100.5F) 03/18/18 05:45 04/17/18 05:44 03/18/18 06:00 Al Hydroxide/Mg Hydroxide (Mylanta II) 30 ml Q6H PRN NG dyspepsia 03/18/18 10:00 04/05/18 15:52 Ascorbic Acid (Vitamin C) 500 mg TWICE A DAY NG 03/18/18 09:00 04/10/18 17:59 03/18/18 09:27 Atenolol (Tenormin) 25 mg DAILY NG 03/19/18 09:00 04/06/18 08:59 Atenolol (Tenormin) 25 mg ONCE ORAL 03/18/18 16:00 03/18/18 17:30 03/18/18 15:54 Cefepime HCl 1 gm/ Dextrose 55 ml @ 110 mls/hr EVERY 12 HOURS IVPB 03/18/18 05:00 03/25/18 04:59 03/18/18 06:14 Chlorhexidine Gluconate (Sahra-Hex 2%) 1 applic DAILY@1999 TOPIC 03/18/18 20:00 04/13/18 19:59 Dextrose/ Electrolytes 1,000 ml @ 50 mls/hr Q20H IV 03/18/18 04:45 04/09/18 17:10 03/18/18 05:59 Gabapentin (Neurontin) 300 mg THREE TIMES A DAY NG 03/18/18 09:00 04/05/18 17:59 03/18/18 13:50 Heparin Sodium (Porcine) (Heparin 5000 units/ml) 5,000 units EVERY 12 HOURS SUBQ 03/18/18 09:00 04/05/18 20:59 03/18/18 09:28 Heparin Sodium/ Sodium Chloride (Heparin 2000 units/Ns 1000ml premix) 2,000 unit ONCE PRN INJ PICC 03/18/18 09:21 03/18/18 23:59 Ipratropium [place] (Atrovent) 500 mcg Q8HRT PRN HHN Shortness of Breath 03/18/18 04:45 03/23/18 04:44 03/18/18 05:33 Levalbuterol HCl (Xopenex) 1.25 mg Q8HRT PRN HHN Shortness of Breath 03/18/18 04:45 03/23/18 04:44 03/18/18 05:33 Nitroglycerin (Ntg) 0.4 mg Q5M PRN SL Prn Chest Pain 03/18/18 04:45 04/05/18 17:10 Olanzapine (ZyPREXA) 2.5 mg Q6H PRN NG agitation 03/18/18 10:00 04/07/18 15:53 Ondansetron HCl (Zofran) 4 mg Q6H PRN IVP Nausea & Vomiting 03/18/18 10:00 04/05/18 15:53 Polyethylene Glycol (Miralax) 17 gm DAILYPRN PRN NG Constipation 03/18/18 16:00 04/06/18 15:53 Promethazine HCl/ Codeine (Phenergan with Codeine) 5 ml Q4H PRN NG For Cough 03/18/18 05:15 04/05/18 17:11 Sodium Hypochlorite (Dakin's Quarter Strength) 1 applic DAILY TOPIC 03/18/18 09:00 04/13/18 12:29 03/18/18 09:27 Tamsulosin HCl (Flomax) 0.4 mg BEDTIME ORAL 03/18/18 21:00 04/05/18 20:59 Temazepam (Restoril) 15 mg HSPRN PRN ORAL Insomnia 03/18/18 15:15 03/21/18 15:14 Vancomycin HCl (Vanco rx to dose) 1 ea DAILY PRN MISC Per rx protocol 03/18/18 09:00 04/14/18 10:59 Vancomycin HCl 1 gm/Dextrose 275 ml @ 183.708 mls/hr Q24H IVPB 03/19/18 14:00 03/24/18 13:59 Zinc Sulfate (Zinc Sulfate) 220 mg DAILY NG 03/18/18 09:00 03/20/18 09:01 03/18/18 09:27 Pacheco Baez MD Mar 18, 2018 17:13
[2018-03-18] MEDS ORDERED: NS Irrig 1000ml ONE (17:39)
[2018-03-18] MEDS ORDERED: Sterile Water Irrig 1000ml IRRIG ONE (17:39)
--- NOTE | 2018-03-18 18:38 | General Progress Note ---
Assessment/Plan Assessment/Plan Assessment (1) Severe malnutrition / dysphagia ICD Codes: E43 - Unspecified severe protein-calorie malnutrition SNOMED: 24036989 (2) Encounter for PEG (percutaneous endoscopic gastrostomy) ICD Codes: Z43.1 - Encounter for attention to gastrostomy SNOMED: 937213655, 221055452 (3) Dehydration ICD Codes: E86.0 - Dehydration SNOMED: 23925813 (4) Dysphasia ICD Codes: R47.02 - Dysphasia SNOMED: 71323945 (5) Atrial fibrillation with RVR ICD Codes: I48.91 - Unspecified atrial fibrillation SNOMED: 934921543896659 (6) Decub ulcers Assessment/Plan NGTF pending PEG consent - message left with family Elevated WBC - Pyelo - on Vanco and Cefepime drop in H&H without any obvious bleeding fu CBC anemia work up Subjective Allergies: Coded Allergies: No Known Allergies (Unverified , 03/06/18) Subjective nonverbal multiple calls messages to son - no reply a fib with RHR noted multiple wounds and decubs patient extremely contracted in all 4 Objective Last 24 Hour Vital Signs Date Time Temp Pulse Resp B/P (MAP) Pulse Ox O2 Delivery O2 Flow Rate FiO2 03/18/18 16:00 Nasal Cannula 3.0 03/18/18 16:00 110 03/18/18 16:00 98.6 100 22 119/60 (79) 93 03/18/18 15:54 116 129/65 03/18/18 12:00 99.0 116 16 129/65 (86) 92 03/18/18 12:00 Nasal Cannula 3.0 03/18/18 11:33 125 03/18/18 09:00 112 100/50 03/18/18 08:07 125 03/18/18 08:00 98.1 111 22 100/50 (67) 93 03/18/18 08:00 Nasal Cannula 3.0 03/18/18 06:45 99.4 03/18/18 05:45 137 24 96 Nasal Cannula 2.0 28 03/18/18 05:33 134 24 94 Nasal Cannula 2.0 28 03/18/18 04:30 100.9 137 40 100/73 (82) 98 03/18/18 04:00 140 03/18/18 04:00 99.1 136 28 103/59 (74) 94 03/18/18 00:00 99.1 108 24 148/85 (106) 100 03/17/18 21:00 Nasal Cannula 3.0 03/17/18 20:00 97.7 94 20 114/57 (76) 98 03/17/18 19:50 99 20 Nasal Cannula 2.0 28 03/17/18 19:38 98 Nasal Cannula 2.0 28 03/17/18 19:38 Nasal Cannula 2.0 28 Intake and Output 03/17/18 03/18/18 19:00 07:00 Intake Total 960 ml 105 ml Output Total 1600 ml 2000 ml Balance -640 ml -1895 ml IV Total 105 ml Tube Feeding 60 ml Blood Product 900 ml Output Urine Total 1600 ml 2000 ml # Voids 1 # Bowel Movements 100 Laboratory Tests 03/18/18 02:49: Arterial Blood pH 7.522H, Arterial Blood Partial Pressure CO2 43.0, Arterial Blood Partial Pressure O2 71.1L, Arterial Blood HCO3 34.5H, Arterial Blood Oxygen Saturation 94.6L, Arterial Blood Base Excess 10.6*H, Temo Test Positive 03/18/18 09:05: White Blood Count 16.1#H, Red Blood Count 2.90L, Hemoglobin 8.8L, Hematocrit 26.5L, Mean Corpuscular Volume 91, Mean Corpuscular Hemoglobin 30.5, Mean Corpuscular Hemoglobin Concent 33.4, Red Cell Distribution Width 13.8, Platelet Count 279, Mean Platelet Volume 4.8L, Neutrophils (%) (Auto) 81.9H, Lymphocytes (%) (Auto) 9.3L, Monocytes (%) (Auto) 7.7, Eosinophils (%) (Auto) 0.0, Basophils (%) (Auto) 1.1, Sodium Level 135L, Potassium Level 4.7, Chloride Level 99, Carbon Dioxide Level 32, Anion Gap 4L, Blood Urea Nitrogen 14, Creatinine 0.6, Estimat Glomerular Filtration Rate , Glucose Level 113H, Calcium Level 8.2L Height (Feet): 5 Height (Inches): 3.00 Weight (Pounds): 164 Objective [place] WW Non verbal Chest CTA RR soft ND OBS (+++) contracted and twisted extremities Jacque Hernandez MD Mar 18, 2018 18:38
[2018-03-18] MEDS ORDERED: Dyna-Hex 2% Top Sol 2oz TOPIC SCH (20:00)
[2018-03-18] MEDS: Dyna-Hex 2% Top Sol 2oz TOPIC SCH (20:00)
[2018-03-18] MEDS: Tamsulosin 0.4mg cap ORAL SCH (20:23)
[2018-03-19] VITALS: BP 88/50
[2018-03-19] MEDS: D5 1/2NS w/KCL 10meq 1,000 ML IV SCH ×2 (01:12→21:18)
[2018-03-19 04:00] VITALS: BP 93/57
[2018-03-19 04:57] LABS: HEMATOCRIT 22.8 % (37.0-47.0); HEMOGLOBIN 7.5 G/DL (12.0-16.0); MEAN CORPUSCULAR VOLUME 91 FL (80-99); PLATELET COUNT 249 K/UL (150-450); RED CELL DISTRIBUTION WIDTH 13.3 % (11.6-14.8)
[2018-03-19 06:03] LABS: ANION GAP 0 mmol/L (5-15); BLOOD UREA NITROGEN 11 mg/dL (7-18); CALCIUM 8.6 MG/DL (8.5-10.1); CARBON DIOXIDE 32 MMOL/L (21-32); CHLORIDE 101 MMOL/L (98-107); CREATININE 0.5 MG/DL (0.55-1.30); POTASSIUM 4.3 MMOL/L (3.5-5.1); SODIUM 135 MMOL/L (136-145)
[2018-03-19 08:00] VITALS: BP 100/40
[2018-03-19] MEDS ORDERED: Heparin 2000 units/Ns 1000ml INJ PRN (08:34)
[2018-03-19] MEDS ORDERED: Lidocaine 1% Plain 30 ml INJ PRN (08:45)
--- NOTE | 2018-03-19 09:13 | Infectious Diseases Prog Note ---
Assessment/Plan Assessment/Plan Sepsis, improving- 2ry to UTI c/w bacteremia and prob early PNA -u/a wbc tntc, nit neg, luek +3; ucx >100k PsA (R cipro/levo, otherwise S), E. fecalis (S Amp, vanco) -03/06 Bcx 4/4 P.mirabiis (R cipro, I Levo; otherwise S), 03/21 MRSE ( contaminant); 03/07 Neg Probable Pneum : -CXR: Subtle patchy opacities in the right upper lung raising question for developing pneumonia. Clinical correlation/follow-up recommended. -influenza sc neg -sp cx MRSA, C. albicans (Colonizer) Low grade fever, SP Leukocytosis, increased FTT HTN Afib dysphagia HLD Dementia contractures Plan: - Add flagyl for possible asp PNA - Continue IV Vanco d# 3 - for PNA -Continue Cefepime # 15 for Proteus bacteremia and PsA UTI -03/13 SP IV Vancomycin #7 -03/06 SP Meropenem x1 - f/u CT C/A/P -Monitor CBC/CMP, temperatures -aspiration precautions Subjective Allergies: Coded Allergies: No Known Allergies (Unverified , 03/06/18) Subjective Patient remains afebrile Leukocytosis increased Not following On 3L NC CXR show new RRL infiltrate Objective Vital Signs Last 24 Hour Vital Signs Date Time Temp Pulse Resp B/P (MAP) Pulse Ox O2 Delivery O2 Flow Rate FiO2 03/19/18 07:53 97 Nasal Cannula 3.0 32 03/19/18 07:53 Nasal Cannula 3.0 32 03/19/18 04:00 Nasal Cannula 3.0 03/19/18 04:00 98.7 78 20 93/57 (69) 95 03/19/18 04:00 80 03/19/18 00:00 Nasal Cannula 3.0 03/19/18 00:00 98.8 80 18 88/50 (63) 95 03/19/18 00:00 82 03/18/18 21:00 Nasal Cannula 3.0 03/18/18 20:00 85 03/18/18 20:00 98.8 85 18 82/58 (66) 95 03/18/18 19:35 95 Nasal Cannula 3.0 32 03/18/18 19:35 Nasal Cannula 3.0 32 03/18/18 16:00 Nasal Cannula 3.0 03/18/18 16:00 110 03/18/18 16:00 98.6 100 22 119/60 (79) 93 03/18/18 15:54 116 129/65 03/18/18 12:00 99.0 116 16 129/65 (86) 92 03/18/18 12:00 Nasal Cannula 3.0 03/18/18 11:33 125 Height (Feet): 5 Height (Inches): 3.00 Weight (Pounds): 160 Objective General: NAD, Not following HEENT: normocephalic, atraumatic, MMM Respiratory: Course B/L, No W Cardiovascular : tachycardia, systolic murmur, irregularly irregular Gastrointestinal: soft, non-distended, colostomy bag in place. Neurologic: alert, non-verbal Laboratory Tests Test 03/19/18 02:50 White Blood Count 15.0 K/UL (4.8-10.8) H Red Blood Count 2.50 M/UL (4.20-5.40) L Hemoglobin 7.5 G/DL (12.0-16.0) L Hematocrit 22.8 % (37.0-47.0) L Mean Corpuscular Volume 91 FL (80-99) Mean Corpuscular Hemoglobin 30.1 PG (27.0-31.0) Mean Corpuscular Hemoglobin Concent 33.0 G/DL (32.0-36.0) Red Cell Distribution Width 13.3 % (11.6-14.8) Platelet Count 249 K/UL (150-450) Mean Platelet Volume 4.3 FL (6.5-10.1) L Neutrophils (%) (Auto) % (45.0-75.0) Lymphocytes (%) (Auto) % (20.0-45.0) Monocytes (%) (Auto) % (1.0-10.0) Eosinophils (%) (Auto) % (0.0-3.0) Basophils (%) (Auto) % (0.0-2.0) Differential Total Cells Counted 100 Neutrophils % (Manual) 81 % (45-75) H Lymphocytes % (Manual) 11 % (20-45) L Monocytes % (Manual) 6 % (1-10) Eosinophils % (Manual) 2 % (0-3) Basophils % (Manual) 0 % (0-2) Band Neutrophils 0 % (0-8) Platelet Estimate Adequate Platelet Morphology Normal Hypochromasia 3+ Anisocytosis 1+ Spherocytes 2+ Sodium Level 135 MMOL/L (136-145) L Potassium Level 4.3 MMOL/L (3.5-5.1) Chloride Level 101 MMOL/L (98-107) Carbon Dioxide Level 32 MMOL/L (21-32) Anion Gap 0 mmol/L (5-15) L Blood Urea Nitrogen 11 mg/dL (7-18) Creatinine 0.5 MG/DL (0.55-1.30) L Estimat Glomerular Filtration Rate mL/min (>60) Glucose Level 87 MG/DL (74-106) Calcium Level 8.6 MG/DL (8.5-10.1) Troponin I 0.047 ng/mL (0.000-0.056) Thyroid Stimulating Hormone (TSH) 3.653 uiU/mL (0.358-3.740) Free Thyroxine 1.11 NG/DL (0.76-1.46) Current Medications Medications (Trade) Dose Ordered Sig/Cele Route PRN Reason Start Time Stop Time Status Last Admin Dose Admin Acetaminophen (Tylenol) 650 mg Q4H PRN NG fever (temp>100.5F) 03/18/18 05:45 04/17/18 05:44 03/18/18 06:00 Al Hydroxide/Mg Hydroxide (Mylanta II) 30 ml Q6H PRN NG dyspepsia 03/18/18 10:00 04/05/18 15:52 Ascorbic Acid (Vitamin C) 500 mg TWICE A DAY NG 03/18/18 09:00 04/10/18 17:59 03/18/18 17:12 Atenolol (Tenormin) 25 mg DAILY NG 03/19/18 09:00 04/06/18 08:59 Cefepime HCl 1 gm/ Dextrose 55 ml @ 110 mls/hr EVERY 12 HOURS IVPB 03/18/18 05:00 03/25/18 04:59 03/18/18 20:23 Chlorhexidine Gluconate (Sahra-Hex 2%) 1 applic DAILY@2000 TOPIC 03/18/18 20:00 04/13/18 19:59 Dextrose/ Electrolytes 1,000 ml @ 50 mls/hr Q20H IV 03/18/18 04:45 04/09/18 17:10 03/19/18 01:12 Gabapentin (Neurontin) 300 mg THREE TIMES A DAY NG 03/18/18 09:00 04/05/18 17:59 03/18/18 17:12 Heparin Sodium (Porcine) (Heparin 5000 units/ml) 5,000 units EVERY 12 HOURS SUBQ 03/18/18 09:00 04/05/18 20:59 03/18/18 09:28 Heparin Sodium/ Sodium Chloride (Heparin 2000 units/Ns 1000ml premix) 2,000 unit ONCE PRN INJ PICC 03/19/18 08:34 03/19/18 23:59 Ipratropium [place] (Atrovent) 500 mcg Q8HRT PRN HHN Shortness of Breath 03/18/18 04:45 03/23/18 04:44 03/18/18 05:33 Levalbuterol HCl (Xopenex) 1.25 mg Q8HRT PRN HHN Shortness of Breath 03/18/18 04:45 03/23/18 04:44 03/18/18 05:33 Lidocaine HCl (Xylocaine 1% 30ml) 30 ml ONCE PRN INJ PICC 03/19/18 08:45 03/19/18 23:59 Nitroglycerin (Ntg) 0.4 mg Q5M PRN SL Prn Chest Pain 03/18/18 04:45 04/05/18 17:10 Olanzapine (ZyPREXA) 2.5 mg Q6H PRN NG agitation 03/18/18 10:00 04/07/18 15:53 Ondansetron HCl (Zofran) 4 mg Q6H PRN IVP Nausea & Vomiting 03/18/18 10:00 04/05/18 15:53 Polyethylene Glycol (Miralax) 17 gm DAILYPRN PRN NG Constipation 03/18/18 16:00 04/06/18 15:53 Promethazine HCl/ Codeine (Phenergan with Codeine) 5 ml Q4H PRN NG For Cough 03/18/18 05:15 04/05/18 17:11 Sodium Hypochlorite (Dakin's Quarter Strength) 1 applic DAILY TOPIC 03/18/18 09:00 04/13/18 12:29 03/18/18 09:27 Tamsulosin HCl (Flomax) 0.4 mg BEDTIME ORAL 03/18/18 21:00 04/05/18 20:59 03/18/18 20:23 Temazepam (Restoril) 15 mg HSPRN PRN ORAL Insomnia 03/18/18 15:15 03/21/18 15:14 Vancomycin HCl (Vanco rx to dose) 1 ea DAILY PRN MISC Per rx protocol 03/18/18 09:00 04/14/18 10:59 Vancomycin HCl 1 gm/Dextrose 275 ml @ 183.708 mls/hr Q24H IVPB 03/19/18 14:00 03/24/18 13:59 Zinc Sulfate (Zinc Sulfate) 220 mg DAILY NG 03/18/18 09:00 03/20/18 09:01 03/18/18 09:27 Pacheco Umana MD Mar 19, 2018 09:13
[2018-03-19] MEDS: Dakin's 0.125% Soln (Quarter Strength) 16oz TOPIC SCH (09:25)
[2018-03-19] MEDS: Atenolol 25mg tab NG SCH (09:25)
[2018-03-19] MEDS: Ascorbic Acid 500mg tab NG SCH (09:25)
[2018-03-19] MEDS: Zinc Sulfate 220mg cap NG SCH (09:25)
[2018-03-19] MEDS: Cefepime HCl 1 GM in D5W 55 ML IVPB SCH ×2 (09:26→21:16)
[2018-03-19] MEDS: Heparin 5000 units/ml inj SUBQ SCH (10:00)
[2018-03-19] MEDS ORDERED: metroNIDAZOLE 500mg tab ORAL SCH (10:00)
--- NOTE | 2018-03-19 10:38 | General Surgery Progress Note ---
General Surgery-Progress Note Subjective Additional Comments great nursing care being provided for wounds. medical and nutritional status poor Objective Last 24 Hour Vital Signs Date Time Temp Pulse Resp B/P (MAP) Pulse Ox O2 Delivery O2 Flow Rate FiO2 03/19/18 09:25 116 100/40 03/19/18 07:53 97 Nasal Cannula 3.0 32 03/19/18 07:53 Nasal Cannula 3.0 32 03/19/18 04:00 Nasal Cannula 3.0 03/19/18 04:00 98.7 78 20 93/57 (69) 95 03/19/18 04:00 80 03/19/18 00:00 Nasal Cannula 3.0 03/19/18 00:00 98.8 80 18 88/50 (63) 95 03/19/18 00:00 82 03/18/18 21:00 Nasal Cannula 3.0 03/18/18 20:00 85 03/18/18 20:00 98.8 85 18 82/58 (66) 95 03/18/18 19:35 95 Nasal Cannula 3.0 32 03/18/18 19:35 Nasal Cannula 3.0 32 03/18/18 16:00 Nasal Cannula 3.0 03/18/18 16:00 110 03/18/18 16:00 98.6 100 22 119/60 (79) 93 03/18/18 15:54 116 129/65 03/18/18 12:00 99.0 116 16 129/65 (86) 92 03/18/18 12:00 Nasal Cannula 3.0 03/18/18 11:33 125 I&O Intake and Output 03/18/18 03/19/18 19:00 07:00 Intake Total 1325.000 ml 820 ml Output Total 750 ml 550 ml Balance 575.000 ml 270 ml Intake Free Water 200 ml 200 ml IV Total 1125.000 ml 620 ml Output Urine Total 700 ml 550 ml Stool Total 50 ml Dressing: saturated Wound: other Drains: other Cardiovascular: RSR Respiratory: decreased breath sounds Abdomen: soft, present bowel sounds Extremities: other Laboratory Tests Test 03/19/18 02:50 White Blood Count 15.0 K/UL (4.8-10.8) H Red Blood Count 2.50 M/UL (4.20-5.40) L Hemoglobin 7.5 G/DL (12.0-16.0) L Hematocrit 22.8 % (37.0-47.0) L Mean Corpuscular Volume 91 FL (80-99) Mean Corpuscular Hemoglobin 30.1 PG (27.0-31.0) Mean Corpuscular Hemoglobin Concent 33.0 G/DL (32.0-36.0) Red Cell Distribution Width 13.3 % (11.6-14.8) Platelet Count 249 K/UL (150-450) Mean Platelet Volume 4.3 FL (6.5-10.1) L Neutrophils (%) (Auto) % (45.0-75.0) Lymphocytes (%) (Auto) % (20.0-45.0) Monocytes (%) (Auto) % (1.0-10.0) Eosinophils (%) (Auto) % (0.0-3.0) Basophils (%) (Auto) % (0.0-2.0) Differential Total Cells Counted 100 Neutrophils % (Manual) 81 % (45-75) H Lymphocytes % (Manual) 11 % (20-45) L Monocytes % (Manual) 6 % (1-10) Eosinophils % (Manual) 2 % (0-3) Basophils % (Manual) 0 % (0-2) Band Neutrophils 0 % (0-8) Platelet Estimate Adequate Platelet Morphology Normal Hypochromasia 3+ Anisocytosis 1+ Spherocytes 2+ Sodium Level 135 MMOL/L (136-145) L Potassium Level 4.3 MMOL/L (3.5-5.1) Chloride Level 101 MMOL/L (98-107) Carbon Dioxide Level 32 MMOL/L (21-32) Anion Gap 0 mmol/L (5-15) L Blood Urea Nitrogen 11 mg/dL (7-18) Creatinine 0.5 MG/DL (0.55-1.30) L Estimat Glomerular Filtration Rate mL/min (>60) Glucose Level 87 MG/DL (74-106) Calcium Level 8.6 MG/DL (8.5-10.1) Troponin I 0.047 ng/mL (0.000-0.056) Thyroid Stimulating Hormone (TSH) 3.653 uiU/mL (0.358-3.740) Free Thyroxine 1.11 NG/DL (0.76-1.46) Plan Problems: (1) Sacral decubitus ulcer, stage IV Assessment & Plan: Fungal rash R and L axillae ,R and L chest and back. Stage IV Full thickness pressure injury to R elbow (L)2.2cm x (W03cm x (D)0.7cm ,undermining 9-3 by 1.8cm @9o'clock.Base of wound beefy red with trace slough, bone is visible.Wound is malodorous with small amt brown exudate. Non- blanchable erythema periwound. Stage IV Full thickness pressure injury to sacrum (L)8cm x (W)10.6cm x (D)2.7cm , Undermining 7-4 by 3.5cm @12o'clock.Wound is malodorous with small amt sanguineous exudate.Wound bed beefy red with an area of soft necrosis at 8-12 at base of wound and bone is visible at coccyx.Edges non-adherent .Non- blanching erythema with moisture denudement periwound and entire buttocks extending into perineum. Has had prior debridement as noted by exam Contractures bilat lower ext with large senile purpura noted to lateral R tibia ,Posterior and nereyda L tibia. Full thickness pressure injury noted to L heel (L)4cm x (W)3.5cm,wound bed viable ,(+)maceration along edges with area of soft necrosis periwound Tx.Plan: Loosely pack R elbow with NS or Dakin's0.125% charo soaked gauze.Apply Cavilon skin barrier periwound .Cover with optifoam drsg Twice daily and prn. Loosely pack sacral wound with NS or Dakin's 0.125% charo soaked gauze. Apply Moisture Barrier Paste periwound .Cover optifoam drsg Twice daily and prn. Cleanse L heel wound with Saline. Apply Hydrogel .Cavilon skin barrier periwound.Cover with Optifoam drsg Daily and prn. Air Fluidized Mattress. Reposition at least every 2hours or as tolerated. Soft pillow between knees. Off-load heels with pillow. Remedy Antifungal Cream to fungal area bilat axillae ,chest and abd Twice daily. Appreciate bioethics input. if continue with full aggressive care would likely need debridement of sacral and right elbow wounds at some point once able to improve nutritional status. thank you Derick Ramsay Mar 19, 2018 10:38
--- NOTE | 2018-03-19 11:35 | Internal Med Progress Note ---
Subjective Date of Service: Mar 19, 2018 Physician Name Shankar Betts Attending Physician Davian Scott MD Current Medications Medications (Trade) Dose Ordered Sig/Cele Route PRN Reason Start Time Stop Time Status Last Admin Dose Admin Acetaminophen (Tylenol) 650 mg Q4H PRN NG fever (temp>100.5F) 03/18/18 05:45 04/17/18 05:44 03/18/18 06:00 Al Hydroxide/Mg Hydroxide (Mylanta II) 30 ml Q6H PRN NG dyspepsia 03/18/18 10:00 04/05/18 15:52 Ascorbic Acid (Vitamin C) 500 mg TWICE A DAY NG 03/18/18 09:00 04/10/18 17:59 03/19/18 09:25 Atenolol (Tenormin) 25 mg DAILY NG 03/19/18 09:00 04/06/18 08:59 03/19/18 09:25 Cefepime HCl 1 gm/ Dextrose 55 ml @ 110 mls/hr EVERY 12 HOURS IVPB 03/18/18 05:00 03/25/18 04:59 03/19/18 09:26 Chlorhexidine Gluconate (Sahra-Hex 2%) 1 applic DAILY@2000 TOPIC 03/18/18 20:00 04/13/18 19:59 Dextrose/ Electrolytes 1,000 ml @ 50 mls/hr Q20H IV 03/18/18 04:45 04/09/18 17:10 03/19/18 01:12 Gabapentin (Neurontin) 300 mg THREE TIMES A DAY NG 03/18/18 09:00 04/05/18 17:59 03/19/18 09:24 Heparin Sodium (Porcine) (Heparin 5000 units/ml) 5,000 units EVERY 12 HOURS SUBQ 03/18/18 09:00 04/05/18 20:59 03/18/18 09:28 Heparin Sodium/ Sodium Chloride (Heparin 2000 units/Ns 1000ml premix) 2,000 unit ONCE PRN INJ PICC 03/19/18 08:34 03/19/18 23:59 Ipratropium Lawrence (Atrovent) 500 mcg Q8HRT PRN HHN Shortness of Breath 03/18/18 04:45 03/23/18 04:44 03/18/18 05:33 Levalbuterol HCl (Xopenex) 1.25 mg Q8HRT PRN HHN Shortness of Breath 03/18/18 04:45 03/23/18 04:44 03/18/18 05:33 Lidocaine HCl (Xylocaine 1% 30ml) 30 ml ONCE PRN INJ PICC 03/19/18 08:45 03/19/18 23:59 Metronidazole (Flagyl) 500 mg Q8HR ORAL 03/19/18 14:00 03/26/18 13:59 Nitroglycerin (Ntg) 0.4 mg Q5M PRN SL Prn Chest Pain 03/18/18 04:45 04/05/18 17:10 Olanzapine (ZyPREXA) 2.5 mg Q6H PRN NG agitation 03/18/18 10:00 04/07/18 15:53 Ondansetron HCl (Zofran) 4 mg Q6H PRN IVP Nausea & Vomiting 03/18/18 10:00 04/05/18 15:53 Polyethylene Glycol (Miralax) 17 gm DAILYPRN PRN NG Constipation 03/18/18 16:00 04/06/18 15:53 Promethazine HCl/ Codeine (Phenergan with Codeine) 5 ml Q4H PRN NG For Cough 03/18/18 05:15 04/05/18 17:11 Sodium Hypochlorite (Dakin's Quarter Strength) 1 applic DAILY TOPIC 03/18/18 09:00 04/13/18 12:29 03/19/18 09:25 Tamsulosin HCl (Flomax) 0.4 mg BEDTIME ORAL 03/18/18 21:00 04/05/18 20:59 03/18/18 20:23 Temazepam (Restoril) 15 mg HSPRN PRN ORAL Insomnia 03/18/18 15:15 03/21/18 15:14 Vancomycin HCl (Vanco rx to dose) 1 ea DAILY PRN MISC Per rx protocol 03/18/18 09:00 04/14/18 10:59 Vancomycin HCl 1 gm/Dextrose 275 ml @ 183.708 mls/hr Q24H IVPB 03/19/18 14:00 03/24/18 13:59 Zinc Sulfate (Zinc Sulfate) 220 mg DAILY NG 03/18/18 09:00 03/20/18 09:01 03/19/18 09:25 Allergies: Coded Allergies: No Known Allergies (Unverified , 03/06/18) ROS Limited/Unobtainable: Yes Subjective 87 YO F admitted with hematuria and gen weakness. Now pyelonephritis and sepsis. Cover for Int Med-Dr Scott. PEG postponed-see GI note. Lost IV access -Needs PICC. [place] Objective Last Vital Signs Date Time Temp Pulse Resp B/P (MAP) Pulse Ox O2 Delivery O2 Flow Rate FiO2 03/19/18 09:25 116 100/40 03/19/18 08:00 Nasal Cannula 3.0 03/19/18 07:53 97 32 03/19/18 04:00 98.7 20 Laboratory Tests Test 03/19/18 02:50 White Blood Count 15.0 K/UL (4.8-10.8) H Red Blood Count 2.50 M/UL (4.20-5.40) L Hemoglobin 7.5 G/DL (12.0-16.0) L Hematocrit 22.8 % (37.0-47.0) L Mean Corpuscular Volume 91 FL (80-99) Mean Corpuscular Hemoglobin 30.1 PG (27.0-31.0) Mean Corpuscular Hemoglobin Concent 33.0 G/DL (32.0-36.0) Red Cell Distribution Width 13.3 % (11.6-14.8) Platelet Count 249 K/UL (150-450) Mean Platelet Volume 4.3 FL (6.5-10.1) L Neutrophils (%) (Auto) % (45.0-75.0) Lymphocytes (%) (Auto) % (20.0-45.0) Monocytes (%) (Auto) % (1.0-10.0) Eosinophils (%) (Auto) % (0.0-3.0) Basophils (%) (Auto) % (0.0-2.0) Differential Total Cells Counted 100 Neutrophils % (Manual) 81 % (45-75) H Lymphocytes % (Manual) 11 % (20-45) L Monocytes % (Manual) 6 % (1-10) Eosinophils % (Manual) 2 % (0-3) Basophils % (Manual) 0 % (0-2) Band Neutrophils 0 % (0-8) Platelet Estimate Adequate Platelet Morphology Normal Hypochromasia 3+ Anisocytosis 1+ Spherocytes 2+ Sodium Level 135 MMOL/L (136-145) L Potassium Level 4.3 MMOL/L (3.5-5.1) Chloride Level 101 MMOL/L (98-107) Carbon Dioxide Level 32 MMOL/L (21-32) Anion Gap 0 mmol/L (5-15) L Blood Urea Nitrogen 11 mg/dL (7-18) Creatinine 0.5 MG/DL (0.55-1.30) L Estimat Glomerular Filtration Rate mL/min (>60) Glucose Level 87 MG/DL (74-106) Calcium Level 8.6 MG/DL (8.5-10.1) Troponin I 0.047 ng/mL (0.000-0.056) Thyroid Stimulating Hormone (TSH) 3.653 uiU/mL (0.358-3.740) Free Thyroxine 1.11 NG/DL (0.76-1.46) Intake and Output 03/18/18 03/19/18 19:00 07:00 Intake Total 1325.000 ml 820 ml Output Total 750 ml 550 ml Balance 575.000 ml 270 ml Intake Free Water 200 ml 200 ml IV Total 1125.000 ml 620 ml Output Urine Total 700 ml 550 ml Stool Total 50 ml Objective PHYSICAL EXAMINATION: GENERAL: The patient is a well-developed and well-nourished white female, in no apparent distress. HEENT: Eyes, pupils are equal and responsive to light and accommodation. Extraocular movements are intact. NECK: Supple without lymphadenopathy. CHEST: Decreased breath sounds at bilateral bases. Otherwise, clear to auscultation without wheezes or rales. CARDIOVASCULAR: Tachycardic. Regular rate and rhythm. S1, S2 are normal without murmurs, rubs, or gallops. ABDOMEN: Soft, nontender, and nondistended. Positive bowel sounds. No evidence of hepatosplenomegaly. Currently, no rebound or guarding noted. EXTREMITIES: Negative for clubbing, cyanosis, or edema. RECTAL/GENITAL: Deferred. NEUROLOGIC: Cranial nerves II through XII are grossly intact without focal deficits. Assessment/Plan Problem List: (1) Dysphagia Assessment & Plan: PEG postponed by son-see GI note (2) Pyelonephritis Assessment & Plan: Pseudamonas and strep. See ID note-Continue cefepime and vanco (3) Sepsis (4) HTN (hypertension) Assessment & Plan: Currently hypotensive (5) Hypercholesteremia (6) Sacral decubitus ulcer, stage IV Assessment & Plan: See surgery note-dr Ramsay (7) Urinary tract infection Assessment & Plan: pseudamonas; continue cefepime per ID (8) Pneumonia Assessment & Plan: New RLL. Previously MRSA. Continue vanco per ID Assessment/Plan Difficult IV access-needs PICC Shankar Betts MD Mar 19, 2018 11:35
[2018-03-19 12:00] VITALS: BP 90/51
--- NOTE | 2018-03-19 12:16 | Cardiac Electrophysiology PN ---
Assessment/Plan Assessment/Plan 1. Atrial fibrillation with rapid ventricular response. Now in SR with frequent PACs. On Atenolol 25 mg daily. Watch the patient on telemetry. Echo pending. 2. Urosepsis. On IV antibiotic per ID. 3. Hypertension, on atenolol. 4. Sacral decubitus ulcer. 5. Dementia. 6. Dysphagia. NG tube is in. The patient may need G-tube placement. KEIRY RN Subjective Subjective Just came back from CT scan abdomen and pelvis. Remained in SR Objective Last 24 Hour Vital Signs Date Time Temp Pulse Resp B/P (MAP) Pulse Ox O2 Delivery O2 Flow Rate FiO2 03/19/18 09:25 116 100/40 03/19/18 08:00 Nasal Cannula 3.0 03/19/18 07:53 97 Nasal Cannula 3.0 32 03/19/18 07:53 Nasal Cannula 3.0 32 03/19/18 04:00 Nasal Cannula 3.0 03/19/18 04:00 98.7 78 20 93/57 (69) 95 03/19/18 04:00 80 03/19/18 00:00 Nasal Cannula 3.0 03/19/18 00:00 98.8 80 18 88/50 (63) 95 03/19/18 00:00 82 03/18/18 21:00 Nasal Cannula 3.0 03/18/18 20:00 85 03/18/18 20:00 98.8 85 18 82/58 (66) 95 03/18/18 19:35 95 Nasal Cannula 3.0 32 03/18/18 19:35 Nasal Cannula 3.0 32 03/18/18 16:00 Nasal Cannula 3.0 03/18/18 16:00 110 03/18/18 16:00 98.6 100 22 119/60 (79) 93 03/18/18 15:54 116 129/65 Intake and Output 03/18/18 03/19/18 18:59 06:59 Intake Total 1325.000 ml 820 ml Output Total 750 ml 550 ml Balance 575.000 ml 270 ml Intake Free Water 200 ml 200 ml IV Total 1125.000 ml 620 ml Output Urine Total 700 ml 550 ml Stool Total 50 ml Laboratory Tests Test 03/19/18 02:50 White Blood Count 15.0 K/UL (4.8-10.8) H Red Blood Count 2.50 M/UL (4.20-5.40) L Hemoglobin 7.5 G/DL (12.0-16.0) L Hematocrit 22.8 % (37.0-47.0) L Mean Corpuscular Volume 91 FL (80-99) Mean Corpuscular Hemoglobin 30.1 PG (27.0-31.0) Mean Corpuscular Hemoglobin Concent 33.0 G/DL (32.0-36.0) Red Cell Distribution Width 13.3 % (11.6-14.8) Platelet Count 249 K/UL (150-450) Mean Platelet Volume 4.3 FL (6.5-10.1) L Neutrophils (%) (Auto) % (45.0-75.0) Lymphocytes (%) (Auto) % (20.0-45.0) Monocytes (%) (Auto) % (1.0-10.0) Eosinophils (%) (Auto) % (0.0-3.0) Basophils (%) (Auto) % (0.0-2.0) Differential Total Cells Counted 100 Neutrophils % (Manual) 81 % (45-75) H Lymphocytes % (Manual) 11 % (20-45) L Monocytes % (Manual) 6 % (1-10) Eosinophils % (Manual) 2 % (0-3) Basophils % (Manual) 0 % (0-2) Band Neutrophils 0 % (0-8) Platelet Estimate Adequate Platelet Morphology Normal Hypochromasia 3+ Anisocytosis 1+ Spherocytes 2+ Sodium Level 135 MMOL/L (136-145) L Potassium Level 4.3 MMOL/L (3.5-5.1) Chloride Level 101 MMOL/L (98-107) Carbon Dioxide Level 32 MMOL/L (21-32) Anion Gap 0 mmol/L (5-15) L Blood Urea Nitrogen 11 mg/dL (7-18) Creatinine 0.5 MG/DL (0.55-1.30) L Estimat Glomerular Filtration Rate mL/min (>60) Glucose Level 87 MG/DL (74-106) Calcium Level 8.6 MG/DL (8.5-10.1) Troponin I 0.047 ng/mL (0.000-0.056) Thyroid Stimulating Hormone (TSH) 3.653 uiU/mL (0.358-3.740) Free Thyroxine 1.11 NG/DL (0.76-1.46) Objective HEAD AND NECK: No JVD. LUNGS: Coarse rhonchi. CARDIOVASCULAR: Irregular S1 and S2 with no gallop. ABDOMEN: Status post colostomy. EXTREMITIES: No pitting edema Fredrick Burk MD Mar 19, 2018 12:16
--- NOTE | 2018-03-19 12:38 | General Progress Note ---
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 ativan prn Subjective Allergies: Coded Allergies: No Known Allergies (Unverified , 03/06/18) Subjective confused decrease episodes of agitation. Objective Last 24 Hour Vital Signs Date Time Temp Pulse Resp B/P (MAP) Pulse Ox O2 Delivery O2 Flow Rate FiO2 03/19/18 09:25 116 100/40 03/19/18 08:00 Nasal Cannula 3.0 03/19/18 07:53 97 Nasal Cannula 3.0 32 03/19/18 07:53 Nasal Cannula 3.0 32 03/19/18 04:00 Nasal Cannula 3.0 03/19/18 04:00 98.7 78 20 93/57 (69) 95 03/19/18 04:00 80 03/19/18 00:00 Nasal Cannula 3.0 03/19/18 00:00 98.8 80 18 88/50 (63) 95 03/19/18 00:00 82 03/18/18 21:00 Nasal Cannula 3.0 03/18/18 20:00 85 03/18/18 20:00 98.8 85 18 82/58 (66) 95 03/18/18 19:35 95 Nasal Cannula 3.0 32 03/18/18 19:35 Nasal Cannula 3.0 32 03/18/18 16:00 Nasal Cannula 3.0 03/18/18 16:00 110 03/18/18 16:00 98.6 100 22 119/60 (79) 93 03/18/18 15:54 116 129/65 Intake and Output 03/18/18 03/19/18 18:59 06:59 Intake Total 1325.000 ml 820 ml Output Total 750 ml 550 ml Balance 575.000 ml 270 ml Intake Free Water 200 ml 200 ml IV Total 1125.000 ml 620 ml Output Urine Total 700 ml 550 ml Stool Total 50 ml Laboratory Tests 03/19/18 02:50: White Blood Count 15.0H, Red Blood Count 2.50L, Hemoglobin 7.5L, Hematocrit 22.8L, Mean Corpuscular Volume 91, Mean Corpuscular Hemoglobin 30.1, Mean Corpuscular Hemoglobin Concent 33.0, Red Cell Distribution Width 13.3, Platelet Count 249, Mean Platelet Volume 4.3L, Neutrophils (%) (Auto) , Lymphocytes (%) ( Auto) , Monocytes (%) (Auto) , Eosinophils (%) (Auto) , Basophils (%) (Auto) , Differential Total Cells Counted 100, Neutrophils % (Manual) 81H, Lymphocytes % (Manual) 11L, Monocytes % (Manual) 6, Eosinophils % (Manual) 2, Basophils % ( Manual) 0, Band Neutrophils 0, Platelet Estimate Adequate, Platelet Morphology Normal, Hypochromasia 3+, Anisocytosis 1+, Spherocytes 2+, Sodium Level 135L, Potassium Level 4.3, Chloride Level 101, Carbon Dioxide Level 32, Anion Gap 0L, Blood Urea Nitrogen 11, Creatinine 0.5L, Estimat Glomerular Filtration Rate , Glucose Level 87, Calcium Level 8.6, Troponin I 0.047, Thyroid Stimulating Hormone (TSH) 3.653, Free Thyroxine 1.11 Height (Feet): 5 Height (Inches): 3.00 Weight (Pounds): 160 General Appearance: no apparent distress, confused, agitated Bj Martinez MD Mar 19, 2018 12:38
--- NOTE | 2018-03-19 12:43 | Diagnostic Imaging Report ---
Indication: Sepsis. UTI bacteremia. Pneumonia. Abnormal chest x-rays Technique: Continuous helical transaxial imaging of the chest, abdomen and pelvis was obtained from the lung bases to the pubic symphysis during intravenous contrast administration. Multiple phases of enhancement obtained. Coronal 2-D reformats were also obtained. Study obtained in a Siemens sensation [address] Automatic Exposure Control was utilized. Total Dose length Product (DLP): 1485.[address] Dose Index Volume (CTDIvol): 17.82,15.47 mGy Comparison: None Findings: Small to moderate left pleural effusion and a small right pleural effusion are present. There is a moderate pectus excavatum. Posterior basal pneumonia versus atelectasis demonstrated worse on the left compared to the right. NG tube is present in good position. Coronary and aorta calcifications are moderate. There is a moderate kyphoscoliosis of the thoracolumbar spine. Generalized subcutaneous edema noted. There is a left lower quadrant ostomy present. No evidence of bowel obstruction. The ostomy is associated with the moderate sized parastomal hernia containing loops of small and large bowel. The visualization of the pelvis is limited by extensive pelvic hardware which includes bilateral total hip prostheses. There are bilateral renal cysts of varying size. There is no obvious evidence for intra-abdominal abscess. The gallbladder is noted but not evaluated well. There is a small left adrenal nodule. IMPRESSION: Bilateral basilar pneumonia versus atelectasis. Small to moderate left pleural effusion and a small right pleural effusion noted. Limited evaluation of the abdomen and pelvis as described above. No obvious abscess or free fluid. Left lower quadrant colostomy. Moderate-sized parastomal hernia containing bowel. Multiple bilateral renal cysts of varying size. Other incidental findings as above The CT scanner at [facility] is accredited by the [employer] and the scans are performed using dose optimization techniques as appropriate to a performed exam including Automatic Exposure control.
--- NOTE | 2018-03-19 13:08 | Pulmonology Progress Note ---
Assessment/Plan Problems: (1) Pneumonia (2) Sepsis (3) Pyelonephritis (4) Atrial fibrillation with RVR (5) Sacral decubitus ulcer, stage IV (6) At high risk for aspiration (7) Protein-calorie malnutrition, severe Assessment/Plan iv abx iv fluids check electrolytes all reviewed No family available to make decision about end of life and/or Gtube placement pt has extensive/nonhealing decubiti ulcers I suggest comfort care. Subjective ROS Limited/Unobtainable: No Constitutional: Reports: no symptoms HEENT: Repors: no symptoms Respiratory: Reports: no symptoms Allergies: Coded Allergies: No Known Allergies (Unverified , 03/06/18) Objective Last 24 Hour Vital Signs Date Time Temp Pulse Resp B/P (MAP) Pulse Ox O2 Delivery O2 Flow Rate FiO2 03/19/18 09:25 116 100/40 03/19/18 08:00 Nasal Cannula 3.0 03/19/18 07:53 97 Nasal Cannula 3.0 32 03/19/18 07:53 Nasal Cannula 3.0 32 03/19/18 04:00 Nasal Cannula 3.0 03/19/18 04:00 98.7 78 20 93/57 (69) 95 03/19/18 04:00 80 03/19/18 00:00 Nasal Cannula 3.0 03/19/18 00:00 98.8 80 18 88/50 (63) 95 03/19/18 00:00 82 03/18/18 21:00 Nasal Cannula 3.0 03/18/18 20:00 85 03/18/18 20:00 98.8 85 18 82/58 (66) 95 03/18/18 19:35 95 Nasal Cannula 3.0 32 03/18/18 19:35 Nasal Cannula 3.0 32 03/18/18 16:00 Nasal Cannula 3.0 03/18/18 16:00 110 03/18/18 16:00 98.6 100 22 119/60 (79) 93 03/18/18 15:54 116 129/65 Intake and Output 03/18/18 03/19/18 19:00 07:00 Intake Total 1325.000 ml 820 ml Output Total 750 ml 550 ml Balance 575.000 ml 270 ml Intake Free Water 200 ml 200 ml IV Total 1125.000 ml 620 ml Output Urine Total 700 ml 550 ml Stool Total 50 ml General Appearance: cachetic HEENT: normocephalic, atraumatic Respiratory/Chest: chest wall non-tender, lungs clear Breasts: no masses Cardiovascular: normal peripheral pulses, normal rate Abdomen: normal bowel sounds, soft, non tender, no organomegaly Genitourinary: normal external genitalia Skin: no rash, no lesions Laboratory Tests 03/19/18 02:50: White Blood Count 15.0H, Red Blood Count 2.50L, Hemoglobin 7.5L, Hematocrit 22.8L, Mean Corpuscular Volume 91, Mean Corpuscular Hemoglobin 30.1, Mean Corpuscular Hemoglobin Concent 33.0, Red Cell Distribution Width 13.3, Platelet Count 249, Mean Platelet Volume 4.3L, Neutrophils (%) (Auto) , Lymphocytes (%) ( Auto) , Monocytes (%) (Auto) , Eosinophils (%) (Auto) , Basophils (%) (Auto) , Differential Total Cells Counted 100, Neutrophils % (Manual) 81H, Lymphocytes % (Manual) 11L, Monocytes % (Manual) 6, Eosinophils % (Manual) 2, Basophils % ( Manual) 0, Band Neutrophils 0, Platelet Estimate Adequate, Platelet Morphology Normal, Hypochromasia 3+, Anisocytosis 1+, Spherocytes 2+, Sodium Level 135L, Potassium Level 4.3, Chloride Level 101, Carbon Dioxide Level 32, Anion Gap 0L, Blood Urea Nitrogen 11, Creatinine 0.5L, Estimat Glomerular Filtration Rate , Glucose Level 87, Calcium Level 8.6, Troponin I 0.047, Thyroid Stimulating Hormone (TSH) 3.653, Free Thyroxine 1.11 Current Medications Medications (Trade) Dose Ordered Sig/Cele Route PRN Reason Start Time Stop Time Status Last Admin Dose Admin Acetaminophen (Tylenol) 650 mg Q4H PRN NG fever (temp>100.5F) 03/18/18 05:45 04/17/18 05:44 03/18/18 06:00 Atenolol (Tenormin) 25 mg DAILY NG 03/19/18 09:00 04/06/18 08:59 03/19/18 09:25 Cefepime HCl 1 gm/ Dextrose 55 ml @ 110 mls/hr EVERY 12 HOURS IVPB 03/18/18 05:00 03/25/18 04:59 03/19/18 09:26 Chlorhexidine Gluconate (Sahra-Hex 2%) 1 applic DAILY@2000 TOPIC 03/18/18 20:00 04/13/18 19:59 Dextrose/ Electrolytes 1,000 ml @ 50 mls/hr Q20H IV 03/18/18 04:45 04/09/18 17:10 03/19/18 01:12 Gabapentin (Neurontin) 300 mg THREE TIMES A DAY NG 03/18/18 09:00 04/05/18 17:59 03/19/18 09:24 Heparin Sodium/ Sodium Chloride (Heparin 2000 units/Ns 1000ml premix) 2,000 unit ONCE PRN INJ PICC 03/19/18 08:34 03/19/18 23:59 Ipratropium [place] (Atrovent) 500 mcg Q8HRT PRN HHN Shortness of Breath 03/18/18 04:45 03/23/18 04:44 03/18/18 05:33 Levalbuterol HCl (Xopenex) 1.25 mg Q8HRT PRN HHN Shortness of Breath 03/18/18 04:45 03/23/18 04:44 03/18/18 05:33 Lidocaine HCl (Xylocaine 1% 30ml) 30 ml ONCE PRN INJ PICC 03/19/18 08:45 03/19/18 23:59 Metronidazole (Flagyl) 500 mg Q8HR ORAL 03/19/18 14:00 03/26/18 13:59 Nitroglycerin (Ntg) 0.4 mg Q5M PRN SL Prn Chest Pain 03/18/18 04:45 04/05/18 17:10 Olanzapine (ZyPREXA) 2.5 mg Q6H PRN NG agitation 03/18/18 10:00 04/07/18 15:53 Ondansetron HCl (Zofran) 4 mg Q6H PRN IVP Nausea & Vomiting 03/18/18 10:00 04/05/18 15:53 Polyethylene Glycol (Miralax) 17 gm DAILYPRN PRN NG Constipation 03/18/18 16:00 04/06/18 15:53 Promethazine HCl/ Codeine (Phenergan with Codeine) 5 ml Q4H PRN NG For Cough 03/18/18 05:15 04/05/18 17:11 Sodium Hypochlorite (Dakin's Quarter Strength) 1 applic DAILY TOPIC 03/18/18 09:00 04/13/18 12:29 03/19/18 09:25 Tamsulosin HCl (Flomax) 0.4 mg BEDTIME ORAL 03/18/18 21:00 04/05/18 20:59 03/18/18 20:23 Temazepam (Restoril) 15 mg HSPRN PRN ORAL Insomnia 03/18/18 15:15 03/21/18 15:14 Vancomycin HCl (Vanco rx to dose) 1 ea DAILY PRN MISC Per rx protocol 03/18/18 09:00 04/14/18 10:59 Vancomycin HCl 1 gm/Dextrose 275 ml @ 183.708 mls/hr Q24H IVPB 03/19/18 14:00 03/24/18 13:59 Zinc Sulfate (Zinc Sulfate) 220 mg DAILY NG 03/18/18 09:00 03/20/18 09:01 03/19/18 09:25 Rishi Gutierrez MD Mar 19, 2018 13:08
[2018-03-19] MEDS: metroNIDAZOLE 500mg tab ORAL SCH ×2 (13:46→22:00)
[2018-03-19] MEDS: Vancomycin 1gm/D5W 275ml IVPB SCH ×2 (13:46)
--- NOTE | 2018-03-19 15:29 | Cardiology Report ---
APPROVED REPORT EXAM: Two-dimensional and M-mode echocardiogram with Doppler and color Doppler. INDICATION Congestive Heart Failure M-Mode DIMENSIONS IVSd1.6 (0.7-1.1cm)Left Atrium (MM)4.0 (1.6-4.0cm) LVDd3.6 (3.5-5.6cm)Aortic Root2.8 (2.0-3.7cm) PWd0.9 (0.7-1.1cm)Aortic Cusp Exc.1.0 (1.5-2.0cm) LVDs1.8 (2.5-4.0cm) PWs1.2 cm Technically difficult study due to patient was contracted. Study quality precludes accurate assessment of regional wall motion. Normal left ventricular chamber size, systolic function and wall motion. Left ventricular ejection fraction estimated to be 60-65 %. Mild left ventricular hypertrophy. Small circumferential pericardial effusion. Mild left atrial enlargement. Right cardiac chamber sizes are within normal limits. Aortic valve calcification with decreased cusp excursion c/w aortic stenosis. Mildly thickened mitral valve leaflets with normal excursion. Moderate mitral annulus and aortic root calcification. Normal pulmonic valve structure. Normal tricuspid valve structure. Subcostal views not obtainable due to G tube. A color flow and spectral Doppler study was performed and revealed: No aortic insufficiency. Peak aortic valve gradient of 29 mmHg and a mean of 14 mmHg. Aortic valve area 1.5 cm2 calculated by continuity equation. Moderate to severe mitral regurgitation. Mitral diastolic velocities suggest mild left ventricular diastolic dysfunction (Grade I). Mild tricuspid regurgitation. Tricuspid systolic velocities suggests peak right ventricular systolic pressure of 77 mmHg, consistent with severe pulmonary hypertension. No pulmonic regurgitation present.
[2018-03-19 16:00] VITALS: BP 91/54
[2018-03-19] MEDS ORDERED: Tubing IV Secondary IV ONE (16:24)
[2018-03-19] MEDS ORDERED: NS 275ml ONE (16:24)
[2018-03-19 20:00] VITALS: BP 95/49
[2018-03-19] MEDS: Dyna-Hex 2% Top Sol 2oz TOPIC SCH (20:00)
[2018-03-19] MEDS: Tamsulosin 0.4mg cap ORAL SCH (21:18)
--- NOTE | 2018-03-19 21:34 | General Progress Note ---
Assessment/Plan Assessment/Plan Assessment (1) Severe malnutrition / dysphagia ICD Codes: E43 - Unspecified severe protein-calorie malnutrition SNOMED: 54500732 (2) Encounter for PEG (percutaneous endoscopic gastrostomy) ICD Codes: Z43.1 - Encounter for attention to gastrostomy SNOMED: 633020399, 160037037 (3) Dehydration ICD Codes: E86.0 - Dehydration SNOMED: 54248503 (4) Dysphasia ICD Codes: R47.02 - Dysphasia SNOMED: 93020171 (5) Atrial fibrillation with RVR ICD Codes: I48.91 - Unspecified atrial fibrillation SNOMED: 291783032320227 (6) Decub ulcers Assessment/Plan NGTF pending PEG consent - message left with family, still waiting for reply Elevated WBC - Pyelo - on Vanco and Cefepime drop in H&H without any obvious bleeding fu CBC anemia work up Subjective Allergies: Coded Allergies: No Known Allergies (Unverified , 03/06/18) Subjective nonverbal multiple calls messages to son - no reply a fib with RHR noted multiple wounds and decubs patient extremely contracted in all 4 Objective Last 24 Hour Vital Signs Date Time Temp Pulse Resp B/P (MAP) Pulse Ox O2 Delivery O2 Flow Rate FiO2 03/19/18 20:00 98.4 91 18 95/49 (64) 94 03/19/18 20:00 Nasal Cannula 3.0 03/19/18 16:00 Nasal Cannula 3.0 03/19/18 16:00 85 03/19/18 16:00 98.2 79 20 91/54 (66) 94 03/19/18 12:00 Nasal Cannula 3.0 03/19/18 12:00 76 03/19/18 12:00 97.7 90 20 90/51 (64) 95 03/19/18 09:25 116 100/40 03/19/18 08:00 97.9 116 20 100/40 (60) 95 03/19/18 08:00 82 03/19/18 08:00 Nasal Cannula 3.0 03/19/18 07:53 97 Nasal Cannula 3.0 32 03/19/18 07:53 Nasal Cannula 3.0 32 03/19/18 04:00 Nasal Cannula 3.0 03/19/18 04:00 98.7 78 20 93/57 (69) 95 03/19/18 04:00 80 03/19/18 00:00 Nasal Cannula 3.0 03/19/18 00:00 98.8 80 18 88/50 (63) 95 03/19/18 00:00 82 Intake and Output 03/18/18 03/19/18 19:00 07:00 Intake Total 1325.000 ml 820 ml Output Total 750 ml 550 ml Balance 575.000 ml 270 ml Intake Free Water 200 ml 200 ml IV Total 1125.000 ml 620 ml Output Urine Total 700 ml 550 ml Stool Total 50 ml Laboratory Tests 03/19/18 02:50: White Blood Count 15.0H, Red Blood Count 2.50L, Hemoglobin 7.5L, Hematocrit 22.8L, Mean Corpuscular Volume 91, Mean Corpuscular Hemoglobin 30.1, Mean Corpuscular Hemoglobin Concent 33.0, Red Cell Distribution Width 13.3, Platelet Count 249, Mean Platelet Volume 4.3L, Neutrophils (%) (Auto) , Lymphocytes (%) ( Auto) , Monocytes (%) (Auto) , Eosinophils (%) (Auto) , Basophils (%) (Auto) , Differential Total Cells Counted 100, Neutrophils % (Manual) 81H, Lymphocytes % (Manual) 11L, Monocytes % (Manual) 6, Eosinophils % (Manual) 2, Basophils % ( Manual) 0, Band Neutrophils 0, Platelet Estimate Adequate, Platelet Morphology Normal, Hypochromasia 3+, Anisocytosis 1+, Spherocytes 2+, Sodium Level 135L, Potassium Level 4.3, Chloride Level 101, Carbon Dioxide Level 32, Anion Gap 0L, Blood Urea Nitrogen 11, Creatinine 0.5L, Estimat Glomerular Filtration Rate , Glucose Level 87, Calcium Level 8.6, Troponin I 0.047, Thyroid Stimulating Hormone (TSH) 3.653, Free Thyroxine 1.11 03/19/18 16:50: Stool Occult Blood [Pending] Height (Feet): 5 Height (Inches): 3.00 Weight (Pounds): 160 Objective [place] WW Non verbal Chest CTA RR soft ND OBS (+++) contracted and twisted extremities Jacque Hernandez MD Mar 19, 2018 21:34
[2018-03-20] VITALS: BP 93/54
[2018-03-20 04:00] VITALS: BP 104/58
[2018-03-20 04:24] LABS: BASOPHILS % (AUTO) 0.8 % (0.0-2.0); EOSINOPHILS % (AUTO) 0.1 % (0.0-3.0); HEMATOCRIT 29.9 % (37.0-47.0); HEMOGLOBIN 10.2 G/DL (12.0-16.0); LYMPHOCYTES % (AUTO) 8.1 % (20.0-45.0); MEAN CORPUSCULAR VOLUME 89 FL (80-99); MONOCYTES % (AUTO) 6.4 % (1.0-10.0); NEUTROPHILS % (AUTO) 84.6 % (45.0-75.0); PLATELET COUNT 300 K/UL (150-450); RED BLOOD COUNT 3.37 M/UL (4.20-5.40); WHITE BLOOD COUNT 15.1 K/UL (4.8-10.8)
[2018-03-20 04:38] LABS: INR 1.1 (0.9-1.1)
[2018-03-20 04:41] LABS: LACTATE DEHYDROGENASE 208 U/L (81-234)
[2018-03-20 04:42] LABS: ALANINE AMINOTRANSFERASE 28 U/L (12-78); ALBUMIN 1.3 G/DL (3.4-5.0); ALBUMIN/GLOBULIN RATIO 0.3 (1.0-2.7); ALKALINE PHOSPHATASE 171 U/L (46-116); ANION GAP 4 mmol/L (5-15); ASPARTATE AMINO TRANSFERASE 36 U/L (15-37); BILIRUBIN,TOTAL 0.4 MG/DL (0.2-1.0); BLOOD UREA NITROGEN 7 mg/dL (7-18); CALCIUM 8.6 MG/DL (8.5-10.1); CARBON DIOXIDE 33 MMOL/L (21-32); CHLORIDE 99 MMOL/L (98-107); CREATININE 0.5 MG/DL (0.55-1.30); POTASSIUM 3.9 MMOL/L (3.5-5.1); SODIUM 135 MMOL/L (136-145)
[2018-03-20 05:40] LABS: % IRON SATURATION 19 % (15-50); IRON 21 ug/dL (50-175); TOTAL IRON BINDING CAPACITY 108 ug/dL (250-450)
[2018-03-20] MEDS: metroNIDAZOLE 500mg tab ORAL SCH ×3 (05:54→22:54)
[2018-03-20 08:00] VITALS: BP 112/44
--- NOTE | 2018-03-20 08:51 | Infectious Diseases Prog Note ---
Assessment/Plan Assessment/Plan Sepsis, improving- 2ry to UTI c/w bacteremia and prob early PNA -u/a wbc tntc, nit neg, luek +3; ucx >100k PsA (R cipro/levo, otherwise S), E. fecalis (S Amp, vanco) -03/06 Bcx / P.mirabiis (R cipro, I Levo; otherwise S), 03/21 MRSE ( contaminant); 03/07 Neg Probable Pneum : -CXR: Subtle patchy opacities in the right upper lung raising question for developing pneumonia. Clinical correlation/follow-up recommended. -influenza sc neg -sp cx MRSA, C. albicans (Colonizer) 03/19/17 - CT C/A/P - Bilateral basilar pneumonia versus atelectasis. Small to moderate left pleural effusion and a small right pleural effusion noted. Low grade fever, SP Leukocytosis FTT HTN Afib dysphagia HLD Dementia contractures Plan: - Continue flagyl #2 for possible asp PNA - Continue IV Vanco d# 4 - for PNA -Continue Cefepime # 16 for Proteus bacteremia and PsA UTI -03/13 SP IV Vancomycin #7 -03/06 SP Meropenem x1 - f/u CT C/A/P -Monitor CBC/CMP, temperatures -aspiration precautions - f/u New Urine Cx Subjective Allergies: Coded Allergies: No Known Allergies (Unverified , 03/06/18) Subjective Patient remains afebrile Leukocytosis stable Not following On 3L NC Objective Vital Signs Last 24 Hour Vital Signs Date Time Temp Pulse Resp B/P (MAP) Pulse Ox O2 Delivery O2 Flow Rate FiO2 03/20/18 07:48 88 03/20/18 04:00 Nasal Cannula 3.0 03/20/18 04:00 98.6 91 20 104/58 (73) 98 03/20/18 03:38 89 03/20/18 00:24 96 03/20/18 00:00 98.7 89 18 93/54 (67) 96 03/19/18 20:00 98.4 91 18 95/49 (64) 94 03/19/18 20:00 Nasal Cannula 3.0 03/19/18 19:18 91 03/19/18 18:58 Nasal Cannula 3.0 32 03/19/18 18:58 96 Nasal Cannula 3.0 32 03/19/18 16:00 Nasal Cannula 3.0 03/19/18 16:00 85 03/19/18 16:00 98.2 79 20 91/54 (66) 94 03/19/18 12:00 Nasal Cannula 3.0 03/19/18 12:00 76 03/19/18 12:00 97.7 90 20 90/51 (64) 95 03/19/18 09:25 116 100/40 Height (Feet): 5 Height (Inches): 3.00 Weight (Pounds): 160 Objective General: NAD, Not following HEENT: NCAT, MMM Respiratory: Course B/L, No W Cardiovascular : tachycardia, systolic murmur, irregularly irregular Gastrointestinal: soft, non-distended, colostomy bag in place. Neurologic: alert, non-verbal Laboratory Tests Test 03/19/18 16:50 03/20/18 04:00 Stool Occult Blood Pending White Blood Count 15.1 K/UL (4.8-10.8) H Red Blood Count 3.37 M/UL (4.20-5.40) L Hemoglobin 10.2 G/DL (12.0-16.0) #L Hematocrit 29.9 % (37.0-47.0) #L Mean Corpuscular Volume 89 FL (80-99) Mean Corpuscular Hemoglobin 30.4 PG (27.0-31.0) Mean Corpuscular Hemoglobin Concent 34.3 G/DL (32.0-36.0) Red Cell Distribution Width 13.0 % (11.6-14.8) Platelet Count 300 K/UL (150-450) Mean Platelet Volume 4.4 FL (6.5-10.1) L Neutrophils (%) (Auto) 84.6 % (45.0-75.0) H Lymphocytes (%) (Auto) 8.1 % (20.0-45.0) L Monocytes (%) (Auto) 6.4 % (1.0-10.0) Eosinophils (%) (Auto) 0.1 % (0.0-3.0) Basophils (%) (Auto) 0.8 % (0.0-2.0) Differential Total Cells Counted 100 Neutrophils % (Manual) 86 % (45-75) H Lymphocytes % (Manual) 8 % (20-45) L Monocytes % (Manual) 4 % (1-10) Eosinophils % (Manual) 0 % (0-3) Basophils % (Manual) 0 % (0-2) Band Neutrophils 2 % (0-8) Platelet Estimate Adequate Platelet Morphology Normal Hypochromasia 1+ Erythrocyte Sedimentation Rate Pending Reticulocyte Count Pending Prothrombin Time 11.3 SEC (9.30-11.50) Prothromb Time International Ratio 1.1 (0.9-1.1) Activated Partial Thromboplast Time 29 SEC (23-33) Sodium Level 135 MMOL/L (136-145) L Potassium Level 3.9 MMOL/L (3.5-5.1) Chloride Level 99 MMOL/L (98-107) Carbon Dioxide Level 33 MMOL/L (21-32) H Anion Gap 4 mmol/L (5-15) L Blood Urea Nitrogen 7 mg/dL (7-18) Creatinine 0.5 MG/DL (0.55-1.30) L Estimat Glomerular Filtration Rate mL/min (>60) Glucose Level 99 MG/DL (74-106) Calcium Level 8.6 MG/DL (8.5-10.1) Iron Level 21 ug/dL (50-175) L Total Iron Binding Capacity 108 ug/dL (250-450) L Percent Iron Saturation 19 % (15-50) Unsaturated Iron Binding 87 ug/dL (112-346) L Total Bilirubin 0.4 MG/DL (0.2-1.0) Aspartate Amino Transf (AST/SGOT) 36 U/L (15-37) Alanine Aminotransferase (ALT/SGPT) 28 U/L (12-78) Alkaline Phosphatase 171 U/L (46-116) H Lactate Dehydrogenase 208 U/L (81-234) Total Protein 5.2 G/DL (6.4-8.2) L Albumin 1.3 G/DL (3.4-5.0) L Globulin 3.9 g/dL Albumin/Globulin Ratio 0.3 (1.0-2.7) L Carcinoembryonic Antigen Pending Vitamin B12 Level 1021 PG/ML (193-986) H Folate 15.0 NG/ML (8.6-58.9) Current Medications Medications (Trade) Dose Ordered Sig/Cele Route PRN Reason Start Time Stop Time Status Last Admin Dose Admin Acetaminophen (Tylenol) 650 mg Q4H PRN NG fever (temp>100.5F) 03/18/18 05:45 04/17/18 05:44 03/18/18 06:00 Atenolol (Tenormin) 25 mg DAILY NG 03/19/18 09:00 04/06/18 08:59 03/19/18 09:25 Cefepime HCl 1 gm/ Dextrose 55 ml @ 110 mls/hr EVERY 12 HOURS IVPB 03/18/18 05:00 03/25/18 04:59 03/19/18 21:16 Chlorhexidine Gluconate (Sahra-Hex 2%) 1 applic DAILY@2000 TOPIC 03/18/18 20:00 04/13/18 19:59 Dextrose/ Electrolytes 1,000 ml @ 50 mls/hr Q20H IV 03/18/18 04:45 04/09/18 17:10 03/19/18 21:18 Gabapentin (Neurontin) 300 mg THREE TIMES A DAY NG 03/18/18 09:00 04/05/18 17:59 03/19/18 18:35 Ipratropium [place] (Atrovent) 500 mcg Q8HRT PRN HHN Shortness of Breath 03/18/18 04:45 03/23/18 04:44 03/18/18 05:33 Levalbuterol HCl (Xopenex) 1.25 mg Q8HRT PRN HHN Shortness of Breath 03/18/18 04:45 03/23/18 04:44 03/18/18 05:33 Metronidazole (Flagyl) 500 mg Q8HR ORAL 03/19/18 14:00 03/26/18 13:59 03/20/18 05:54 Nitroglycerin (Ntg) 0.4 mg Q5M PRN SL Prn Chest Pain 03/18/18 04:45 04/05/18 17:10 Olanzapine (ZyPREXA) 2.5 mg Q6H PRN NG agitation 03/18/18 10:00 04/07/18 15:53 Ondansetron HCl (Zofran) 4 mg Q6H PRN IVP Nausea & Vomiting 03/18/18 10:00 04/05/18 15:53 Polyethylene Glycol (Miralax) 17 gm DAILYPRN PRN NG Constipation 03/18/18 16:00 04/06/18 15:53 Promethazine HCl/ Codeine (Phenergan with Codeine) 5 ml Q4H PRN NG For Cough 03/18/18 05:15 04/05/18 17:11 Sodium Hypochlorite (Dakin's Quarter Strength) 1 applic DAILY TOPIC 03/18/18 09:00 04/13/18 12:29 03/19/18 09:25 Tamsulosin HCl (Flomax) 0.4 mg BEDTIME ORAL 03/18/18 21:00 04/05/18 20:59 03/19/18 21:18 Temazepam (Restoril) 15 mg HSPRN PRN ORAL Insomnia 03/18/18 15:15 03/21/18 15:14 Vancomycin HCl (Vanco rx to dose) 1 ea DAILY PRN MISC Per rx protocol 03/18/18 09:00 04/14/18 10:59 Vancomycin HCl 1 gm/Dextrose 275 ml @ 183.708 mls/hr Q24H IVPB 03/19/18 14:00 03/24/18 13:59 03/19/18 13:46 Zinc Sulfate (Zinc Sulfate) 220 mg DAILY NG 03/18/18 09:00 03/20/18 09:01 03/19/18 09:25 Pacheco Umana MD Mar 20, 2018 08:51
[2018-03-20] MEDS: Atenolol 25mg tab NG SCH (09:00)
[2018-03-20] MEDS: Zinc Sulfate 220mg cap NG SCH (09:57)
[2018-03-20] MEDS: Cefepime HCl 1 GM in D5W 55 ML IVPB SCH ×2 (09:58→21:10)
[2018-03-20] MEDS: Dakin's 0.125% Soln (Quarter Strength) 16oz TOPIC SCH (09:59)
--- NOTE | 2018-03-20 10:21 | Cardiac Electrophysiology PN ---
Assessment/Plan Status Narrative Technically difficult study due to patient was contracted. Study quality precludes accurate assessment of regional wall motion. Normal left ventricular chamber size, systolic function and wall motion. Left ventricular ejection fraction estimated to be 60-65 %. Mild left ventricular hypertrophy. Small circumferential pericardial effusion. Mild left atrial enlargement. Right cardiac chamber sizes are within normal limits. Aortic valve calcification with decreased cusp excursion c/w aortic stenosis. Mildly thickened mitral valve leaflets with normal excursion. Moderate mitral annulus and aortic root calcification. Normal pulmonic valve structure. Normal tricuspid valve structure. Subcostal views not obtainable due to G tube. Assessment/Plan 1. Atrial fibrillation with rapid ventricular response. Now in SR with frequent PACs. On Atenolol 25 mg daily. Echo EF 65% 2. Urosepsis. On IV antibiotic per ID. 3. Hypertension, on atenolol. 4. Sacral decubitus ulcer. 5. Dementia. 6. Dysphagia. NG tube is in. The patient may need G-tube placement. KEIRY RN Subjective Subjective Remained in SR. No new events Objective Last 24 Hour Vital Signs Date Time Temp Pulse Resp B/P (MAP) Pulse Ox O2 Delivery O2 Flow Rate FiO2 03/20/18 09:00 88 104/58 03/20/18 07:48 88 03/20/18 04:00 Nasal Cannula 3.0 03/20/18 04:00 98.6 91 20 104/58 (73) 98 03/20/18 03:38 89 03/20/18 00:24 96 03/20/18 00:00 98.7 89 18 93/54 (67) 96 03/19/18 20:00 98.4 91 18 95/49 (64) 94 03/19/18 20:00 Nasal Cannula 3.0 03/19/18 19:18 91 03/19/18 18:58 Nasal Cannula 3.0 32 03/19/18 18:58 96 Nasal Cannula 3.0 32 03/19/18 16:00 Nasal Cannula 3.0 03/19/18 16:00 85 03/19/18 16:00 98.2 79 20 91/54 (66) 94 03/19/18 12:00 Nasal Cannula 3.0 03/19/18 12:00 76 03/19/18 12:00 97.7 90 20 90/51 (64) 95 Intake and Output 03/19/18 03/20/18 19:00 07:00 Intake Total 967.416 ml 540.28 ml Output Total 980 ml 830 ml Balance -12.584 ml -289.72 ml IV Total 967.416 ml 540.28 ml Output Urine Total 725 ml 800 ml Stool Total 255 ml 30 ml Laboratory Tests Test 03/19/18 16:50 03/20/18 04:00 Stool Occult Blood Pending White Blood Count 15.1 K/UL (4.8-10.8) H Red Blood Count 3.37 M/UL (4.20-5.40) L Hemoglobin 10.2 G/DL (12.0-16.0) #L Hematocrit 29.9 % (37.0-47.0) #L Mean Corpuscular Volume 89 FL (80-99) Mean Corpuscular Hemoglobin 30.4 PG (27.0-31.0) Mean Corpuscular Hemoglobin Concent 34.3 G/DL (32.0-36.0) Red Cell Distribution Width 13.0 % (11.6-14.8) Platelet Count 300 K/UL (150-450) Mean Platelet Volume 4.4 FL (6.5-10.1) L Neutrophils (%) (Auto) 84.6 % (45.0-75.0) H Lymphocytes (%) (Auto) 8.1 % (20.0-45.0) L Monocytes (%) (Auto) 6.4 % (1.0-10.0) Eosinophils (%) (Auto) 0.1 % (0.0-3.0) Basophils (%) (Auto) 0.8 % (0.0-2.0) Differential Total Cells Counted 100 Neutrophils % (Manual) 86 % (45-75) H Lymphocytes % (Manual) 8 % (20-45) L Monocytes % (Manual) 4 % (1-10) Eosinophils % (Manual) 0 % (0-3) Basophils % (Manual) 0 % (0-2) Band Neutrophils 2 % (0-8) Platelet Estimate Adequate Platelet Morphology Normal Hypochromasia 1+ Erythrocyte Sedimentation Rate Pending Reticulocyte Count 1.9 % (0.0-2.0) Prothrombin Time 11.3 SEC (9.30-11.50) Prothromb Time International Ratio 1.1 (0.9-1.1) Activated Partial Thromboplast Time 29 SEC (23-33) Sodium Level 135 MMOL/L (136-145) L Potassium Level 3.9 MMOL/L (3.5-5.1) Chloride Level 99 MMOL/L (98-107) Carbon Dioxide Level 33 MMOL/L (21-32) H Anion Gap 4 mmol/L (5-15) L Blood Urea Nitrogen 7 mg/dL (7-18) Creatinine 0.5 MG/DL (0.55-1.30) L Estimat Glomerular Filtration Rate mL/min (>60) Glucose Level 99 MG/DL (74-106) Calcium Level 8.6 MG/DL (8.5-10.1) Iron Level 21 ug/dL (50-175) L Total Iron Binding Capacity 108 ug/dL (250-450) L Percent Iron Saturation 19 % (15-50) Unsaturated Iron Binding 87 ug/dL (112-346) L Total Bilirubin 0.4 MG/DL (0.2-1.0) Aspartate Amino Transf (AST/SGOT) 36 U/L (15-37) Alanine Aminotransferase (ALT/SGPT) 28 U/L (12-78) Alkaline Phosphatase 171 U/L (46-116) H Lactate Dehydrogenase 208 U/L (81-234) Total Protein 5.2 G/DL (6.4-8.2) L Albumin 1.3 G/DL (3.4-5.0) L Globulin 3.9 g/dL Albumin/Globulin Ratio 0.3 (1.0-2.7) L Carcinoembryonic Antigen Pending Vitamin B12 Level 1021 PG/ML (193-986) H Folate 15.0 NG/ML (8.6-58.9) Objective HEAD AND NECK: No JVD. LUNGS: Coarse rhonchi. CARDIOVASCULAR: Irregular S1 and S2 with no gallop. ABDOMEN: Status post colostomy. EXTREMITIES: No pitting edema Fredrick Burk MD Mar 20, 2018 10:21
--- NOTE | 2018-03-20 10:35 | GI Progress Note ---
Assessment/Plan Problems: (1) Encounter for PEG (percutaneous endoscopic gastrostomy) ICD Codes: Z43.1 - Encounter for attention to gastrostomy SNOMED: 826380476, 552754054 (2) At high risk for aspiration ICD Codes: Z91.89 - Other specified personal risk factors, not elsewhere classified SNOMED: 778958548 (3) Protein-calorie malnutrition, severe ICD Codes: E43 - Unspecified severe protein-calorie malnutrition SNOMED: 779914014 (4) Dysphasia ICD Codes: R47.02 - Dysphasia SNOMED: 39174502 Status: unchanged Status Narrative Discussed with Dr. Velez Assessment/Plan Continue NGTF pending PEG consent - message left with family, still waiting for reply (the son did not come to see the patient over the weekend as he stated he would.) will consult with bioethics again Elevated WBC - Pyelo - on Vanco and Cefepime drop in H&H without any obvious bleeding fu CBC, as needed transfusions OB stool to rule out GI bleed Follow-up labs The patient was seen and examined at bedside and all new and available data was reviewed in the patients chart. I agree with the above findings, impression and plan. (Patient seen earlier today. Signature stamp does not reflect patient encounter time.). - Ernesto Velez MD Subjective Subjective Limited Objective Last 24 Hour Vital Signs Date Time Temp Pulse Resp B/P (MAP) Pulse Ox O2 Delivery O2 Flow Rate FiO2 03/20/18 09:00 88 104/58 03/20/18 07:48 88 03/20/18 04:00 Nasal Cannula 3.0 03/20/18 04:00 98.6 91 20 104/58 (73) 98 03/20/18 03:38 89 03/20/18 00:24 96 03/20/18 00:00 98.7 89 18 93/54 (67) 96 03/19/18 20:00 98.4 91 18 95/49 (64) 94 03/19/18 20:00 Nasal Cannula 3.0 03/19/18 19:18 91 03/19/18 18:58 Nasal Cannula 3.0 32 03/19/18 18:58 96 Nasal Cannula 3.0 32 03/19/18 16:00 Nasal Cannula 3.0 03/19/18 16:00 85 03/19/18 16:00 98.2 79 20 91/54 (66) 94 03/19/18 12:00 Nasal Cannula 3.0 03/19/18 12:00 76 03/19/18 12:00 97.7 90 20 90/51 (64) 95 Intake and Output 03/19/18 03/20/18 19:00 07:00 Intake Total 967.416 ml 540.28 ml Output Total 980 ml 830 ml Balance -12.584 ml -289.72 ml IV Total 967.416 ml 540.28 ml Output Urine Total 725 ml 800 ml Stool Total 255 ml 30 ml Laboratory Tests Test 03/19/18 16:50 03/20/18 04:00 Stool Occult Blood Pending White Blood Count 15.1 K/UL (4.8-10.8) H Red Blood Count 3.37 M/UL (4.20-5.40) L Hemoglobin 10.2 G/DL (12.0-16.0) #L Hematocrit 29.9 % (37.0-47.0) #L Mean Corpuscular Volume 89 FL (80-99) Mean Corpuscular Hemoglobin 30.4 PG (27.0-31.0) Mean Corpuscular Hemoglobin Concent 34.3 G/DL (32.0-36.0) Red Cell Distribution Width 13.0 % (11.6-14.8) Platelet Count 300 K/UL (150-450) Mean Platelet Volume 4.4 FL (6.5-10.1) L Neutrophils (%) (Auto) 84.6 % (45.0-75.0) H Lymphocytes (%) (Auto) 8.1 % (20.0-45.0) L Monocytes (%) (Auto) 6.4 % (1.0-10.0) Eosinophils (%) (Auto) 0.1 % (0.0-3.0) Basophils (%) (Auto) 0.8 % (0.0-2.0) Differential Total Cells Counted 100 Neutrophils % (Manual) 86 % (45-75) H Lymphocytes % (Manual) 8 % (20-45) L Monocytes % (Manual) 4 % (1-10) Eosinophils % (Manual) 0 % (0-3) Basophils % (Manual) 0 % (0-2) Band Neutrophils 2 % (0-8) Platelet Estimate Adequate Platelet Morphology Normal Hypochromasia 1+ Erythrocyte Sedimentation Rate 93 MM/HR (0-30) H Reticulocyte Count 1.9 % (0.0-2.0) Prothrombin Time 11.3 SEC (9.30-11.50) Prothromb Time International Ratio 1.1 (0.9-1.1) Activated Partial Thromboplast Time 29 SEC (23-33) Sodium Level 135 MMOL/L (136-145) L Potassium Level 3.9 MMOL/L (3.5-5.1) Chloride Level 99 MMOL/L (98-107) Carbon Dioxide Level 33 MMOL/L (21-32) H Anion Gap 4 mmol/L (5-15) L Blood Urea Nitrogen 7 mg/dL (7-18) Creatinine 0.5 MG/DL (0.55-1.30) L Estimat Glomerular Filtration Rate mL/min (>60) Glucose Level 99 MG/DL (74-106) Calcium Level 8.6 MG/DL (8.5-10.1) Iron Level 21 ug/dL (50-175) L Total Iron Binding Capacity 108 ug/dL (250-450) L Percent Iron Saturation 19 % (15-50) Unsaturated Iron Binding 87 ug/dL (112-346) L Total Bilirubin 0.4 MG/DL (0.2-1.0) Aspartate Amino Transf (AST/SGOT) 36 U/L (15-37) Alanine Aminotransferase (ALT/SGPT) 28 U/L (12-78) Alkaline Phosphatase 171 U/L (46-116) H Lactate Dehydrogenase 208 U/L (81-234) Total Protein 5.2 G/DL (6.4-8.2) L Albumin 1.3 G/DL (3.4-5.0) L Globulin 3.9 g/dL Albumin/Globulin Ratio 0.3 (1.0-2.7) L Carcinoembryonic Antigen Pending Vitamin B12 Level 1021 PG/ML (193-986) H Folate 15.0 NG/ML (8.6-58.9) Height (Feet): 5 Height (Inches): 3.00 Weight (Pounds): 160 General Appearance: WD/WN, no apparent distress, alert, thin Cardiovascular: normal rate Respiratory/Chest: normal breath sounds, no respiratory distress Abdominal Exam: normal bowel sounds, non tender, soft, other - Nasogastric tube Extremities: non-tender Thaddeus Galeana NP Mar 20, 2018 10:35
--- NOTE | 2018-03-20 11:14 | Pulmonology Progress Note ---
Assessment/Plan Problems: (1) Pneumonia (2) Sepsis (3) Atrial fibrillation with RVR (4) Sacral decubitus ulcer, stage IV (5) At high risk for aspiration (6) Protein-calorie malnutrition, severe Assessment/Plan iv abx iv fluids wbc still high check electrolytes all reviewed No family available to make decision about end of life and/or Gtube placement pt has extensive/nonhealing decubiti ulcers I suggest comfort care. Subjective ROS Limited/Unobtainable: No Constitutional: Reports: no symptoms HEENT: Repors: no symptoms Respiratory: Reports: no symptoms Allergies: Coded Allergies: No Known Allergies (Unverified , 03/06/18) Objective Last 24 Hour Vital Signs Date Time Temp Pulse Resp B/P (MAP) Pulse Ox O2 Delivery O2 Flow Rate FiO2 03/20/18 09:00 88 104/58 03/20/18 08:00 97.5 89 24 112/44 (66) 100 03/20/18 07:48 88 03/20/18 04:00 Nasal Cannula 3.0 03/20/18 04:00 98.6 91 20 104/58 (73) 98 03/20/18 03:38 89 03/20/18 00:24 96 03/20/18 00:00 98.7 89 18 93/54 (67) 96 03/19/18 20:00 98.4 91 18 95/49 (64) 94 03/19/18 20:00 Nasal Cannula 3.0 03/19/18 19:18 91 03/19/18 18:58 Nasal Cannula 3.0 32 03/19/18 18:58 96 Nasal Cannula 3.0 32 03/19/18 16:00 Nasal Cannula 3.0 03/19/18 16:00 85 03/19/18 16:00 98.2 79 20 91/54 (66) 94 03/19/18 12:00 Nasal Cannula 3.0 03/19/18 12:00 76 03/19/18 12:00 97.7 90 20 90/51 (64) 95 Intake and Output 03/19/18 03/20/18 19:00 07:00 Intake Total 967.416 ml 540.28 ml Output Total 980 ml 830 ml Balance -12.584 ml -289.72 ml IV Total 967.416 ml 540.28 ml Output Urine Total 725 ml 800 ml Stool Total 255 ml 30 ml General Appearance: WD/WN HEENT: normocephalic, anicteric Respiratory/Chest: chest wall non-tender, lungs clear Breasts: no masses Cardiovascular: normal peripheral pulses Abdomen: normal bowel sounds, soft, non tender Extremities: no cyanosis, no clubbing Skin: no rash Laboratory Tests 03/19/18 16:50: Stool Occult Blood [Pending] 03/20/18 04:00: White Blood Count 15.1H, Red Blood Count 3.37L, Hemoglobin 10.2#L, Hematocrit 29.9#L, Mean Corpuscular Volume 89, Mean Corpuscular Hemoglobin 30.4, Mean Corpuscular Hemoglobin Concent 34.3, Red Cell Distribution Width 13.0, Platelet Count 300, Mean Platelet Volume 4.4L, Neutrophils (%) (Auto) 84.6H, Lymphocytes (%) (Auto) 8.1L, Monocytes (%) (Auto) 6.4, Eosinophils (%) (Auto) 0.1, Basophils (%) (Auto) 0.8, Differential Total Cells Counted 100, Neutrophils % ( Manual) 86H, Lymphocytes % (Manual) 8L, Monocytes % (Manual) 4, Eosinophils % ( Manual) 0, Basophils % (Manual) 0, Band Neutrophils 2, Platelet Estimate Adequate, Platelet Morphology Normal, Hypochromasia 1+, Erythrocyte Sedimentation Rate 93H, Reticulocyte Count 1.9, Prothrombin Time 11.3, Prothromb Time International Ratio 1.1, Activated Partial Thromboplast Time 29, Sodium Level 135L, Potassium Level 3.9, Chloride Level 99, Carbon Dioxide Level 33H, Anion Gap 4L, Blood Urea Nitrogen 7, Creatinine 0.5L, Estimat Glomerular Filtration Rate , Glucose Level 99, Calcium Level 8.6, Iron Level 21L, Total Iron Binding Capacity 108L, Percent Iron Saturation 19, Unsaturated Iron Binding 87L, Total Bilirubin 0.4, Aspartate Amino Transf (AST/SGOT) 36, Alanine Aminotransferase (ALT/SGPT) 28, Alkaline Phosphatase 171H, Lactate Dehydrogenase 208, Total Protein 5.2L, Albumin 1.3L, Globulin 3.9, Albumin/ Globulin Ratio 0.3L, Carcinoembryonic Antigen [Pending], Vitamin B12 Level 1021H , Folate 15.0 Current Medications Medications (Trade) Dose Ordered Sig/Cele Route PRN Reason Start Time Stop Time Status Last Admin Dose Admin Acetaminophen (Tylenol) 650 mg Q4H PRN NG fever (temp>100.5F) 03/18/18 05:45 04/17/18 05:44 03/18/18 06:00 Atenolol (Tenormin) 25 mg DAILY NG 03/19/18 09:00 04/06/18 08:59 03/20/18 09:00 Cefepime HCl 1 gm/ Dextrose 55 ml @ 110 mls/hr EVERY 12 HOURS IVPB 03/18/18 05:00 03/25/18 04:59 03/20/18 09:58 Chlorhexidine Gluconate (Sahra-Hex 2%) 1 applic DAILY@2000 TOPIC 03/18/18 20:00 04/13/18 19:59 Dextrose/ Electrolytes 1,000 ml @ 50 mls/hr Q20H IV 03/18/18 04:45 04/09/18 17:10 03/19/18 21:18 Gabapentin (Neurontin) 300 mg THREE TIMES A DAY NG 03/18/18 09:00 04/05/18 17:59 03/20/18 09:58 Ipratropium [place] (Atrovent) 500 mcg Q8HRT PRN HHN Shortness of Breath 03/18/18 04:45 03/23/18 04:44 03/18/18 05:33 Iron Sucrose 100 mg/Sodium Chloride 60 ml @ 240 mls/hr BEDTIME IV 03/20/18 21:00 03/24/18 21:14 Levalbuterol HCl (Xopenex) 1.25 mg Q8HRT PRN HHN Shortness of Breath 03/18/18 04:45 03/23/18 04:44 03/18/18 05:33 Metronidazole (Flagyl) 500 mg Q8HR ORAL 03/19/18 14:00 03/26/18 13:59 03/20/18 05:54 Nitroglycerin (Ntg) 0.4 mg Q5M PRN SL Prn Chest Pain 03/18/18 04:45 04/05/18 17:10 Olanzapine (ZyPREXA) 2.5 mg Q6H PRN NG agitation 03/18/18 10:00 04/07/18 15:53 Ondansetron HCl (Zofran) 4 mg Q6H PRN IVP Nausea & Vomiting 03/18/18 10:00 04/05/18 15:53 Polyethylene Glycol (Miralax) 17 gm DAILYPRN PRN NG Constipation 03/18/18 16:00 04/06/18 15:53 Promethazine HCl/ Codeine (Phenergan with Codeine) 5 ml Q4H PRN NG For Cough 03/18/18 05:15 04/05/18 17:11 Sodium Hypochlorite (Dakin's Quarter Strength) 1 applic DAILY TOPIC 03/18/18 09:00 04/13/18 12:29 03/20/18 09:59 Tamsulosin HCl (Flomax) 0.4 mg BEDTIME ORAL 03/18/18 21:00 04/05/18 20:59 03/19/18 21:18 Temazepam (Restoril) 15 mg HSPRN PRN ORAL Insomnia 03/18/18 15:15 03/21/18 15:14 Vancomycin HCl (Vanco rx to dose) 1 ea DAILY PRN MISC Per rx protocol 03/18/18 09:00 04/14/18 10:59 Vancomycin HCl 1 gm/Dextrose 275 ml @ 183.708 mls/hr Q24H IVPB 03/19/18 14:00 03/24/18 13:59 03/19/18 13:46 Rishi Gutierrez MD Mar 20, 2018 11:14
[2018-03-20] MEDS ORDERED: Lidocaine 1% Plain 30 ml INJ PRN (11:30)
[2018-03-20] MEDS ORDERED: Heparin 2000 units/Ns 1000ml INJ PRN (11:30)
[2018-03-20 12:00] VITALS: BP 95/56
--- NOTE | 2018-03-20 13:56 | General Progress Note ---
Assessment/Plan Assessment/Plan Zyprexa prn recommend palliative care/hospice the pt lacks capacity to make decisions. Ativan prn The son is not calling back to our phone calls Subjective Allergies: Coded Allergies: No Known Allergies (Unverified , 03/06/18) Subjective confused decrease episodes of agitation. the pt is the same Objective Last 24 Hour Vital Signs Date Time Temp Pulse Resp B/P (MAP) Pulse Ox O2 Delivery O2 Flow Rate FiO2 03/20/18 12:00 97.9 86 24 95/56 (69) 100 03/20/18 12:00 86 03/20/18 12:00 Nasal Cannula 3.0 03/20/18 09:00 88 104/58 03/20/18 08:00 97.5 89 24 112/44 (66) 100 03/20/18 08:00 Nasal Cannula 3.0 03/20/18 07:48 88 03/20/18 04:00 Nasal Cannula 3.0 03/20/18 04:00 98.6 91 20 104/58 (73) 98 03/20/18 03:38 89 03/20/18 00:24 96 03/20/18 00:00 98.7 89 18 93/54 (67) 96 03/19/18 20:00 98.4 91 18 95/49 (64) 94 03/19/18 20:00 Nasal Cannula 3.0 03/19/18 19:18 91 03/19/18 18:58 Nasal Cannula 3.0 32 03/19/18 18:58 96 Nasal Cannula 3.0 32 03/19/18 16:00 Nasal Cannula 3.0 03/19/18 16:00 85 03/19/18 16:00 98.2 79 20 91/54 (66) 94 Intake and Output 03/19/18 03/20/18 19:00 07:00 Intake Total 967.416 ml 540.28 ml Output Total 980 ml 830 ml Balance -12.584 ml -289.72 ml IV Total 967.416 ml 540.28 ml Output Urine Total 725 ml 800 ml Stool Total 255 ml 30 ml Laboratory Tests 03/19/18 16:50: Stool Occult Blood Negative 03/20/18 04:00: White Blood Count 15.1H, Red Blood Count 3.37L, Hemoglobin 10.2#L, Hematocrit 29.9#L, Mean Corpuscular Volume 89, Mean Corpuscular Hemoglobin 30.4, Mean Corpuscular Hemoglobin Concent 34.3, Red Cell Distribution Width 13.0, Platelet Count 300, Mean Platelet Volume 4.4L, Neutrophils (%) (Auto) 84.6H, Lymphocytes (%) (Auto) 8.1L, Monocytes (%) (Auto) 6.4, Eosinophils (%) (Auto) 0.1, Basophils (%) (Auto) 0.8, Differential Total Cells Counted 100, Neutrophils % ( Manual) 86H, Lymphocytes % (Manual) 8L, Monocytes % (Manual) 4, Eosinophils % ( Manual) 0, Basophils % (Manual) 0, Band Neutrophils 2, Other Cell Type Pathologist comment, Platelet Estimate Adequate, Platelet Morphology Normal, Hypochromasia 1+, Erythrocyte Sedimentation Rate 93H, Reticulocyte Count 1.9, Prothrombin Time 11.3, Prothromb Time International Ratio 1.1, Activated Partial Thromboplast Time 29, Sodium Level 135L, Potassium Level 3.9, Chloride Level 99, Carbon Dioxide Level 33H, Anion Gap 4L, Blood Urea Nitrogen 7, Creatinine 0.5L, Estimat Glomerular Filtration Rate , Glucose Level 99, Calcium Level 8.6, Iron Level 21L, Total Iron Binding Capacity 108L, Percent Iron Saturation 19, Unsaturated Iron Binding 87L, Total Bilirubin 0.4, Aspartate Amino Transf (AST/SGOT) 36, Alanine Aminotransferase (ALT/SGPT) 28, Alkaline Phosphatase 171H, Lactate Dehydrogenase 208, Total Protein 5.2L, Albumin 1.3L, Globulin 3.9, Albumin/Globulin Ratio 0.3L, Carcinoembryonic Antigen [Pending], Vitamin B12 Level 1021H, Folate 15.0 03/20/18 13:00: Vancomycin Level Trough 8.3 Height (Feet): 5 Height (Inches): 3.00 Weight (Pounds): 160 General Appearance: confused, agitated Bj Martinez MD Mar 20, 2018 13:56
[2018-03-20] MEDS: Vancomycin 1gm/D5W 275ml IVPB SCH ×2 (14:19)
[2018-03-20] MEDS: D5 1/2NS w/KCL 10meq 1,000 ML IV SCH (14:19)
[2018-03-20 16:00] VITALS: BP 100/56
--- NOTE | 2018-03-20 16:35 | Operative Note - PDOC ---
Operative Note Operative Note Date of Operation/Procedure: Mar 20, 2018 Pre-op Diagnosis: stage IV sacral decubitus ulcer Procedure: excisional debridement of stage IV sacral decubitus ulcer Post-op Diagnosis: same as pre-op Surgeon: kathleen Anesthesia: other Specimen: yes Complications: none Condition: stable Estimated Blood Loss: minimal Drains: none Implant(s) used?: No Indications for Procedure 87F with known sacral decubitus stage IV ulcer currently admitted for medical care and management noted to have areas of eschar and necrosis requiring debridement. Procedure indicated and recommended. Discussed with medical teams and multidisciplinary team agreed that would should be debrided to help assist with healing. Description of Procedure The patient was made comfortable at the bedside and placed in the right lateral decubitus position with bony prominences well padded. Preoperative time-out was taken identifying the patient, procedure, staff, and nursing team. All appropriate instruments that were required were available. The patient was given all of her scheduled medications and p.r.n. medications as needed. The prior dressings were removed and wounds were evaluated. The wound was cleansed with saline and Stage IV Full thickness pressure injury to sacrum (L)8cm x (W) 10.6cm x (D)2.7cm, Undermining 7-4 by 3.5cm @12o'clock were noted with palpable bone, significant amount of fibrinous tissue, and necrotic eschar cap. Foul smell had improved since initially seen upon admission. At this point, a #10 surgical scalpel was used to excise the fibrinous debris and necrotic eschar cap down to the healthy viable tissue. Once this was completed, a curette was used to curette areas of nonviable tissue and fibrinous debris down to healthy viable tissue. At this time, hemostasis was achieved with direct pressure and once noted, the wound was irrigated and cleansed. Good healthy tissue was identified with good backbleeding, and packing and dressings were applied. The patient tolerated the procedure well and will continue with wound care. Derick Ramsay Mar 20, 2018 16:35
--- NOTE | 2018-03-20 17:42 | Internal Med Progress Note ---
Subjective Date of Service: Mar 20, 2018 Physician Name Shankar Betts Attending Physician Davian Scott MD Current Medications Medications (Trade) Dose Ordered Sig/Cele Route PRN Reason Start Time Stop Time Status Last Admin Dose Admin Acetaminophen (Tylenol) 650 mg Q4H PRN NG fever (temp>100.5F) 03/18/18 05:45 04/17/18 05:44 03/18/18 06:00 Atenolol (Tenormin) 25 mg DAILY NG 03/19/18 09:00 04/06/18 08:59 03/20/18 09:00 Cefepime HCl 1 gm/ Dextrose 55 ml @ 110 mls/hr EVERY 12 HOURS IVPB 03/18/18 05:00 03/25/18 04:59 03/20/18 09:58 Chlorhexidine Gluconate (Sahra-Hex 2%) 1 applic DAILY@2000 TOPIC 03/18/18 20:00 04/13/18 19:59 Dextrose/ Electrolytes 1,000 ml @ 50 mls/hr Q20H IV 03/18/18 04:45 04/09/18 17:10 03/20/18 14:19 Gabapentin (Neurontin) 300 mg THREE TIMES A DAY NG 03/18/18 09:00 04/05/18 17:59 03/20/18 14:19 Heparin Sodium/ Sodium Chloride (Heparin 2000 units/Ns 1000ml premix) 2,000 unit ONCE PRN INJ PICC LINE 03/20/18 11:30 03/21/18 23:59 Ipratropium [place] (Atrovent) 500 mcg Q8HRT PRN HHN Shortness of Breath 03/18/18 04:45 03/23/18 04:44 03/18/18 05:33 Iron Sucrose 100 mg/Sodium Chloride 60 ml @ 240 mls/hr BEDTIME IV 03/20/18 21:00 03/24/18 21:14 Levalbuterol HCl (Xopenex) 1.25 mg Q8HRT PRN HHN Shortness of Breath 03/18/18 04:45 03/23/18 04:44 03/18/18 05:33 Lidocaine HCl (Xylocaine 1% 30ml) 30 ml ONCE PRN INJ PICC LINE 03/20/18 11:30 03/21/18 23:59 Metronidazole (Flagyl) 500 mg Q8HR ORAL 03/19/18 14:00 03/26/18 13:59 03/20/18 14:19 Nitroglycerin (Ntg) 0.4 mg Q5M PRN SL Prn Chest Pain 03/18/18 04:45 04/05/18 17:10 Olanzapine (ZyPREXA) 2.5 mg Q6H PRN NG agitation 03/18/18 10:00 04/07/18 15:53 Ondansetron HCl (Zofran) 4 mg Q6H PRN IVP Nausea & Vomiting 03/18/18 10:00 04/05/18 15:53 Polyethylene Glycol (Miralax) 17 gm DAILYPRN PRN NG Constipation 03/18/18 16:00 04/06/18 15:53 Promethazine HCl/ Codeine (Phenergan with Codeine) 5 ml Q4H PRN NG For Cough 03/18/18 05:15 04/05/18 17:11 Sodium Hypochlorite (Dakin's Quarter Strength) 1 applic DAILY TOPIC 03/18/18 09:00 04/13/18 12:29 03/20/18 09:59 Tamsulosin HCl (Flomax) 0.4 mg BEDTIME ORAL 03/18/18 21:00 04/05/18 20:59 03/19/18 21:18 Temazepam (Restoril) 15 mg HSPRN PRN ORAL Insomnia 03/18/18 15:15 03/21/18 15:14 Vancomycin HCl (Vanco rx to dose) 1 ea DAILY PRN MISC Per rx protocol 03/18/18 09:00 04/14/18 10:59 Vancomycin HCl 1 gm/Dextrose 275 ml @ 183.708 mls/hr Q24H IVPB 03/19/18 14:00 03/20/18 23:59 03/20/18 14:19 Vancomycin/Sodium Chloride 250 ml @ 166.667 mls/hr Q12HR@0200,1400 IVPB 03/21/18 02:00 03/26/18 01:59 Allergies: Coded Allergies: No Known Allergies (Unverified , 03/06/18) ROS Limited/Unobtainable: Yes Subjective 87 YO F admitted with hematuria and gen weakness. Now pyelonephritis and sepsis. Cover for Int Med-Dr Tyler. PEG postponed-see GI note. [place] Objective Last Vital Signs Date Time Temp Pulse Resp B/P (MAP) Pulse Ox O2 Delivery O2 Flow Rate FiO2 03/20/18 12:00 97.9 86 24 95/56 (69) 100 03/20/18 12:00 Nasal Cannula 3.0 03/19/18 18:58 32 Laboratory Tests Test 03/20/18 04:00 03/20/18 13:00 White Blood Count 15.1 K/UL (4.8-10.8) H Red Blood Count 3.37 M/UL (4.20-5.40) L Hemoglobin 10.2 G/DL (12.0-16.0) #L Hematocrit 29.9 % (37.0-47.0) #L Mean Corpuscular Volume 89 FL (80-99) Mean Corpuscular Hemoglobin 30.4 PG (27.0-31.0) Mean Corpuscular Hemoglobin Concent 34.3 G/DL (32.0-36.0) Red Cell Distribution Width 13.0 % (11.6-14.8) Platelet Count 300 K/UL (150-450) Mean Platelet Volume 4.4 FL (6.5-10.1) L Neutrophils (%) (Auto) 84.6 % (45.0-75.0) H Lymphocytes (%) (Auto) 8.1 % (20.0-45.0) L Monocytes (%) (Auto) 6.4 % (1.0-10.0) Eosinophils (%) (Auto) 0.1 % (0.0-3.0) Basophils (%) (Auto) 0.8 % (0.0-2.0) Differential Total Cells Counted 100 Neutrophils % (Manual) 86 % (45-75) H Lymphocytes % (Manual) 8 % (20-45) L Monocytes % (Manual) 4 % (1-10) Eosinophils % (Manual) 0 % (0-3) Basophils % (Manual) 0 % (0-2) Band Neutrophils 2 % (0-8) Other Cell Type Pathologist comment Platelet Estimate Adequate Platelet Morphology Normal Hypochromasia 1+ Erythrocyte Sedimentation Rate 93 MM/HR (0-30) H Reticulocyte Count 1.9 % (0.0-2.0) Prothrombin Time 11.3 SEC (9.30-11.50) Prothromb Time International Ratio 1.1 (0.9-1.1) Activated Partial Thromboplast Time 29 SEC (23-33) Sodium Level 135 MMOL/L (136-145) L Potassium Level 3.9 MMOL/L (3.5-5.1) Chloride Level 99 MMOL/L (98-107) Carbon Dioxide Level 33 MMOL/L (21-32) H Anion Gap 4 mmol/L (5-15) L Blood Urea Nitrogen 7 mg/dL (7-18) Creatinine 0.5 MG/DL (0.55-1.30) L Estimat Glomerular Filtration Rate mL/min (>60) Glucose Level 99 MG/DL (74-106) Calcium Level 8.6 MG/DL (8.5-10.1) Iron Level 21 ug/dL (50-175) L Total Iron Binding Capacity 108 ug/dL (250-450) L Percent Iron Saturation 19 % (15-50) Unsaturated Iron Binding 87 ug/dL (112-346) L Total Bilirubin 0.4 MG/DL (0.2-1.0) Aspartate Amino Transf (AST/SGOT) 36 U/L (15-37) Alanine Aminotransferase (ALT/SGPT) 28 U/L (12-78) Alkaline Phosphatase 171 U/L (46-116) H Lactate Dehydrogenase 208 U/L (81-234) Total Protein 5.2 G/DL (6.4-8.2) L Albumin 1.3 G/DL (3.4-5.0) L Globulin 3.9 g/dL Albumin/Globulin Ratio 0.3 (1.0-2.7) L Carcinoembryonic Antigen Pending Vitamin B12 Level 1021 PG/ML (193-986) H Folate 15.0 NG/ML (8.6-58.9) Vancomycin Level Trough 8.3 ug/mL (5.0-12.0) Intake and Output 03/19/18 03/20/18 18:59 06:59 Intake Total 967.416 ml 540.28 ml Output Total 980 ml 830 ml Balance -12.584 ml -289.72 ml IV Total 967.416 ml 540.28 ml Output Urine Total 725 ml 800 ml Stool Total 255 ml 30 ml Objective PHYSICAL EXAMINATION: GENERAL: The patient is a well-developed and well-nourished white female, in no apparent distress. HEENT: Eyes, pupils are equal and responsive to light and accommodation. Extraocular movements are intact. NECK: Supple without lymphadenopathy. CHEST: Decreased breath sounds at bilateral bases. Otherwise, clear to auscultation without wheezes or rales. CARDIOVASCULAR: Tachycardic. Regular rate and rhythm. S1, S2 are normal without murmurs, rubs, or gallops. ABDOMEN: Soft, nontender, and nondistended. Positive bowel sounds. No evidence of hepatosplenomegaly. Currently, no rebound or guarding noted. EXTREMITIES: Negative for clubbing, cyanosis, or edema. RECTAL/GENITAL: Deferred. NEUROLOGIC: Cranial nerves II through XII are grossly intact without focal deficits. Assessment/Plan Problem List: (1) Pyelonephritis Assessment & Plan: Pseudamonas and strep. See ID note-Continue cefepime and vanco (2) Sepsis (3) HTN (hypertension) Assessment & Plan: Currently hypotensive (4) Hypercholesteremia (5) Sacral decubitus ulcer, stage IV Assessment & Plan: See surgery note-dr Ramsay (6) Urinary tract infection Assessment & Plan: pseudamonas; continue cefepime per ID (7) Pneumonia Assessment & Plan: New RLL. Previously MRSA. Continue vanco per ID Status: unchanged Shankar Betts MD Mar 20, 2018 17:42
[2018-03-20 20:00] VITALS: BP 96/53
[2018-03-20] MEDS: Dyna-Hex 2% Top Sol 2oz TOPIC SCH (20:00)
[2018-03-20] MEDS: Tamsulosin 0.4mg cap ORAL SCH (21:10)
[2018-03-20] MEDS: Iron Sucrose 100 MG in NS 55 ML IV SCH (21:10)
[2018-03-21] VITALS (9 sets, daily range): BP systolic 90–121; BP diastolic 50–65
[2018-03-21] MEDS: Vancomycin 750mg/NS 250ml IVPB SCH ×2 (02:35→14:00)
[2018-03-21] MEDS: metroNIDAZOLE 500mg tab ORAL SCH ×3 (05:05→21:45)
[2018-03-21 06:41] LABS: BASOPHILS % (AUTO) 0.6 % (0.0-2.0); EOSINOPHILS % (AUTO) 0.9 % (0.0-3.0); HEMATOCRIT 26.8 % (37.0-47.0); LYMPHOCYTES % (AUTO) 16.9 % (20.0-45.0); MEAN CORPUSCULAR VOLUME 91 FL (80-99); MONOCYTES % (AUTO) 10.1 % (1.0-10.0); NEUTROPHILS % (AUTO) 71.5 % (45.0-75.0); PLATELET COUNT 276 K/UL (150-450); RED BLOOD COUNT 2.94 M/UL (4.20-5.40); RED CELL DISTRIBUTION WIDTH 13.5 % (11.6-14.8); WHITE BLOOD COUNT 10.4 K/UL (4.8-10.8)
[2018-03-21 07:31] LABS: PHOSPHORUS 3.6 MG/DL (2.5-4.9)
[2018-03-21 07:38] LABS: ALANINE AMINOTRANSFERASE 23 U/L (12-78); ALBUMIN 1.2 G/DL (3.4-5.0); ALBUMIN/GLOBULIN RATIO 0.4 (1.0-2.7); ALKALINE PHOSPHATASE 137 U/L (46-116); ANION GAP 4 mmol/L (5-15); ASPARTATE AMINO TRANSFERASE 27 U/L (15-37); BILIRUBIN,TOTAL 0.4 MG/DL (0.2-1.0); BLOOD UREA NITROGEN 7 mg/dL (7-18); CALCIUM 8.3 MG/DL (8.5-10.1); CARBON DIOXIDE 32 MMOL/L (21-32); CHLORIDE 103 MMOL/L (98-107); CREATININE 0.5 MG/DL (0.55-1.30); POTASSIUM 3.9 MMOL/L (3.5-5.1); SODIUM 138 MMOL/L (136-145)
--- NOTE | 2018-03-21 09:03 | Infectious Diseases Prog Note ---
Assessment/Plan Assessment/Plan Sepsis, resolved 2ry to UTI c/w bacteremia and prob early PNA -u/a wbc tntc, nit neg, luek +3; ucx >100k PsA (R cipro/levo, otherwise S), E. fecalis (S Amp, vanco) -03/06 Bcx 06/19 P.mirabiis (R cipro, I Levo; otherwise S), 03/21 MRSE ( contaminant); 03/07 Neg Probable Pneum : -CXR: Subtle patchy opacities in the right upper lung raising question for developing pneumonia. Clinical correlation/follow-up recommended. -influenza sc neg -sp cx MRSA, C. albicans (Colonizer) 03/19/17 - CT C/A/P - Bilateral basilar pneumonia versus atelectasis. Small to moderate left pleural effusion and a small right pleural effusion noted. 03/19/17 UCx - Yeast Low grade fever, SP Leukocytosis - SP FTT HTN Afib dysphagia HLD Dementia contractures Plan: - Continue flagyl #/ for possible asp PNA - Continue IV Vanco d# / - for PNA -Continue Cefepime # for Proteus bacteremia and PsA UTI -03/13 SP IV Vancomycin #7 -03/06 SP Meropenem x1 -Monitor CBC/CMP, temperatures -aspiration precautions Subjective Allergies: Coded Allergies: No Known Allergies (Unverified , 03/06/18) Subjective Patient remains afebrile Leukocytosis resolved Not following On 3L NC Objective Vital Signs Last 24 Hour Vital Signs Date Time Temp Pulse Resp B/P (MAP) Pulse Ox O2 Delivery O2 Flow Rate FiO2 03/21/18 04:04 Nasal Cannula 3.0 03/21/18 04:00 98.3 87 24 106/56 (73) 100 03/21/18 03:57 63 03/21/18 03:14 81 03/21/18 00:00 98.8 92 24 102/54 (70) 100 03/21/18 00:00 Nasal Cannula 3.0 03/20/18 23:17 84 03/20/18 22:56 98 Nasal Cannula 3.0 32 03/20/18 21:28 Nasal Cannula 3.0 32 03/20/18 21:28 98 Nasal Cannula 3.0 32 03/20/18 20:00 98.6 102 24 96/53 (67) 100 03/20/18 20:00 Nasal Cannula 3.0 03/20/18 19:33 91 03/20/18 16:00 86 03/20/18 16:00 98.1 87 24 100/56 (71) 100 03/20/18 16:00 Nasal Cannula 3.0 03/20/18 12:00 97.9 86 24 95/56 (69) 100 03/20/18 12:00 86 03/20/18 12:00 Nasal Cannula 3.0 Height (Feet): 5 Height (Inches): 3.00 Weight (Pounds): 160 Objective General: NAD HEENT: NCAT, MMM Respiratory: Course B/L, No W Cardiovascular : tachycardia, systolic murmur, irregularly irregular Gastrointestinal: soft, non-distended, colostomy bag in place. Neurologic: alert, non-verbal Microbiology Date/Time Source Procedure Growth Status 03/19/18 15:26 Indwelling Cath Urine Culture - Preliminary YEAST Resulted Laboratory Tests Test 03/20/18 13:00 03/21/18 04:20 Vancomycin Level Trough 8.3 ug/mL (5.0-12.0) White Blood Count 10.4 K/UL (4.8-10.8) Red Blood Count 2.94 M/UL (4.20-5.40) L Hemoglobin 9.0 G/DL (12.0-16.0) L Hematocrit 26.8 % (37.0-47.0) L Mean Corpuscular Volume 91 FL (80-99) Mean Corpuscular Hemoglobin 30.7 PG (27.0-31.0) Mean Corpuscular Hemoglobin Concent 33.7 G/DL (32.0-36.0) Red Cell Distribution Width 13.5 % (11.6-14.8) Platelet Count 276 K/UL (150-450) Mean Platelet Volume 4.2 FL (6.5-10.1) L Neutrophils (%) (Auto) 71.5 % (45.0-75.0) Lymphocytes (%) (Auto) 16.9 % (20.0-45.0) L Monocytes (%) (Auto) 10.1 % (1.0-10.0) H Eosinophils (%) (Auto) 0.9 % (0.0-3.0) Basophils (%) (Auto) 0.6 % (0.0-2.0) Sodium Level 138 MMOL/L (136-145) Potassium Level 3.9 MMOL/L (3.5-5.1) Chloride Level 103 MMOL/L (98-107) Carbon Dioxide Level 32 MMOL/L (21-32) Anion Gap 4 mmol/L (5-15) L Blood Urea Nitrogen 7 mg/dL (7-18) Creatinine 0.5 MG/DL (0.55-1.30) L Estimat Glomerular Filtration Rate mL/min (>60) Glucose Level 87 MG/DL (74-106) Calcium Level 8.3 MG/DL (8.5-10.1) L Phosphorus Level 3.6 MG/DL (2.5-4.9) Magnesium Level 1.8 MG/DL (1.8-2.4) Total Bilirubin 0.4 MG/DL (0.2-1.0) Aspartate Amino Transf (AST/SGOT) 27 U/L (15-37) Alanine Aminotransferase (ALT/SGPT) 23 U/L (12-78) Alkaline Phosphatase 137 U/L (46-116) H Total Protein 4.6 G/DL (6.4-8.2) L Albumin 1.2 G/DL (3.4-5.0) L Globulin 3.4 g/dL Albumin/Globulin Ratio 0.4 (1.0-2.7) L Current Medications Medications (Trade) Dose Ordered Sig/Cele Route PRN Reason Start Time Stop Time Status Last Admin Dose Admin Acetaminophen (Tylenol) 650 mg Q4H PRN NG fever (temp>100.5F) 03/18/18 05:45 04/17/18 05:44 03/18/18 06:00 Atenolol (Tenormin) 25 mg DAILY NG 03/19/18 09:00 04/06/18 08:59 03/20/18 09:00 Cefepime HCl 1 gm/ Dextrose 55 ml @ 110 mls/hr EVERY 12 HOURS IVPB 03/18/18 05:00 03/25/18 04:59 03/20/18 21:10 Chlorhexidine Gluconate (Sahra-Hex 2%) 1 applic DAILY@2000 TOPIC 03/18/18 20:00 04/13/18 19:59 Dextrose/ Electrolytes 1,000 ml @ 50 mls/hr Q20H IV 03/18/18 04:45 04/09/18 17:10 03/20/18 14:19 Gabapentin (Neurontin) 300 mg THREE TIMES A DAY NG 03/18/18 09:00 04/05/18 17:59 03/20/18 18:00 Heparin Sodium/ Sodium Chloride (Heparin 2000 units/Ns 1000ml premix) 2,000 unit ONCE PRN INJ PICC LINE 03/20/18 11:30 03/21/18 23:59 Ipratropium [place] (Atrovent) 500 mcg Q8HRT PRN HHN Shortness of Breath 03/18/18 04:45 03/23/18 04:44 03/18/18 05:33 Iron Sucrose 100 mg/Sodium Chloride 60 ml @ 240 mls/hr BEDTIME IV 03/20/18 21:00 03/24/18 21:14 03/20/18 21:10 Levalbuterol HCl (Xopenex) 1.25 mg Q8HRT PRN HHN Shortness of Breath 03/18/18 04:45 03/23/18 04:44 03/18/18 05:33 Lidocaine HCl (Xylocaine 1% 30ml) 30 ml ONCE PRN INJ PICC LINE 03/20/18 11:30 03/21/18 23:59 Metronidazole (Flagyl) 500 mg Q8HR ORAL 03/19/18 14:00 03/26/18 13:59 03/21/18 05:05 Nitroglycerin (Ntg) 0.4 mg Q5M PRN SL Prn Chest Pain 03/18/18 04:45 04/05/18 17:10 Olanzapine (ZyPREXA) 2.5 mg Q6H PRN NG agitation 03/18/18 10:00 04/07/18 15:53 Ondansetron HCl (Zofran) 4 mg Q6H PRN IVP Nausea & Vomiting 03/18/18 10:00 04/05/18 15:53 Polyethylene Glycol (Miralax) 17 gm DAILYPRN PRN NG Constipation 03/18/18 16:00 04/06/18 15:53 Promethazine HCl/ Codeine (Phenergan with Codeine) 5 ml Q4H PRN NG For Cough 03/18/18 05:15 04/05/18 17:11 Sodium Hypochlorite (Dakin's Quarter Strength) 1 applic DAILY TOPIC 03/18/18 09:00 04/13/18 12:29 03/20/18 09:59 Tamsulosin HCl (Flomax) 0.4 mg BEDTIME ORAL 03/18/18 21:00 04/05/18 20:59 03/20/18 21:10 Temazepam (Restoril) 15 mg HSPRN PRN ORAL Insomnia 03/18/18 15:15 03/21/18 15:14 Vancomycin HCl (Vanco rx to dose) 1 ea DAILY PRN MISC Per rx protocol 03/18/18 09:00 04/14/18 10:59 Vancomycin/Sodium Chloride 250 ml @ 166.667 mls/hr Q12HR@0200,1400 IVPB 03/21/18 02:00 03/26/18 01:59 03/21/18 02:35 Pacheco Umana MD Mar 21, 2018 09:03
[2018-03-21] MEDS: Dakin's 0.125% Soln (Quarter Strength) 16oz TOPIC SCH (09:14)
[2018-03-21] MEDS: Atenolol 25mg tab NG SCH (09:14)
[2018-03-21] MEDS ORDERED: Cefepime HCl 1 GM in D5W 55 ML IVPB SCH (09:30)
--- NOTE | 2018-03-21 11:05 | Pulmonology Progress Note ---
Assessment/Plan Problems: (1) Pneumonia (2) Sepsis (3) Atrial fibrillation with RVR (4) Sacral decubitus ulcer, stage IV (5) At high risk for aspiration (6) Protein-calorie malnutrition, severe Assessment/Plan iv abx iv fluids wbc still high check electrolytes all reviewed No family available to make decision about end of life and/or Gtube placement pt might get Gtube if two physicians sing for it. I won't be one of them pt has extensive/nonhealing decubiti ulcers I suggest comfort care. Subjective ROS Limited/Unobtainable: No Interval Events: awake, looks comfortable Allergies: Coded Allergies: No Known Allergies (Unverified , 03/06/18) Objective Last 24 Hour Vital Signs Date Time Temp Pulse Resp B/P (MAP) Pulse Ox O2 Delivery O2 Flow Rate FiO2 03/21/18 09:14 95 121/60 03/21/18 08:00 Nasal Cannula 3.0 03/21/18 08:00 98.2 95 24 121/60 (80) 92 03/21/18 07:39 74 03/21/18 04:04 Nasal Cannula 3.0 03/21/18 04:00 98.3 87 24 106/56 (73) 100 03/21/18 03:57 63 03/21/18 03:14 81 03/21/18 00:00 98.8 92 24 102/54 (70) 100 03/21/18 00:00 Nasal Cannula 3.0 03/20/18 23:17 84 03/20/18 22:56 98 Nasal Cannula 3.0 32 03/20/18 21:28 Nasal Cannula 3.0 32 03/20/18 21:28 98 Nasal Cannula 3.0 32 03/20/18 20:00 98.6 102 24 96/53 (67) 100 03/20/18 20:00 Nasal Cannula 3.0 03/20/18 19:33 91 03/20/18 16:00 86 03/20/18 16:00 98.1 87 24 100/56 (71) 100 03/20/18 16:00 Nasal Cannula 3.0 03/20/18 12:00 97.9 86 24 95/56 (69) 100 03/20/18 12:00 86 03/20/18 12:00 Nasal Cannula 3.0 Intake and Output 03/20/18 03/21/18 19:00 07:00 Intake Total 930 ml 916.667 ml Output Total 700 ml 1525 ml Balance 230 ml -608.333 ml IV Total 930 ml 916.667 ml Output Urine Total 700 ml 1400 ml Stool Total 125 ml General Appearance: WD/WN HEENT: normocephalic Respiratory/Chest: chest wall non-tender, normal breath sounds Breasts: no masses Cardiovascular: normal rate Abdomen: normal bowel sounds Genitourinary: normal external genitalia Skin: no rash, no lesions Microbiology Date/Time Source Procedure Growth Status 03/19/18 15:26 Indwelling Cath Urine Culture - Preliminary YEAST Resulted Laboratory Tests 03/20/18 13:00: Vancomycin Level Trough 8.3 03/21/18 04:20: White Blood Count 10.4, Red Blood Count 2.94L, Hemoglobin 9.0L, Hematocrit 26.8L , Mean Corpuscular Volume 91, Mean Corpuscular Hemoglobin 30.7, Mean Corpuscular Hemoglobin Concent 33.7, Red Cell Distribution Width 13.5, Platelet Count 276, Mean Platelet Volume 4.2L, Neutrophils (%) (Auto) 71.5, Lymphocytes ( %) (Auto) 16.9L, Monocytes (%) (Auto) 10.1H, Eosinophils (%) (Auto) 0.9, Basophils (%) (Auto) 0.6, Sodium Level 138, Potassium Level 3.9, Chloride Level 103, Carbon Dioxide Level 32, Anion Gap 4L, Blood Urea Nitrogen 7, Creatinine 0.5L, Estimat Glomerular Filtration Rate , Glucose Level 87, Calcium Level 8.3L , Phosphorus Level 3.6, Magnesium Level 1.8, Total Bilirubin 0.4, Aspartate Amino Transf (AST/SGOT) 27, Alanine Aminotransferase (ALT/SGPT) 23, Alkaline Phosphatase 137H, Total Protein 4.6L, Albumin 1.2L, Globulin 3.4, Albumin/ Globulin Ratio 0.4L Current Medications Medications (Trade) Dose Ordered Sig/Cele Route PRN Reason Start Time Stop Time Status Last Admin Dose Admin Acetaminophen (Tylenol) 650 mg Q4H PRN NG fever (temp>100.5F) 03/18/18 05:45 04/17/18 05:44 03/18/18 06:00 Atenolol (Tenormin) 25 mg DAILY NG 03/19/18 09:00 04/06/18 08:59 03/21/18 09:14 Cefepime HCl 1 gm/ Dextrose 55 ml @ 110 mls/hr DAILY IVPB 03/21/18 09:30 03/25/18 09:29 03/21/18 09:20 Chlorhexidine Gluconate (Sahra-Hex 2%) 1 applic DAILY@2000 TOPIC 03/18/18 20:00 04/13/18 19:59 Dextrose/ Electrolytes 1,000 ml @ 50 mls/hr Q20H IV 03/18/18 04:45 04/09/18 17:10 03/20/18 14:19 Gabapentin (Neurontin) 300 mg THREE TIMES A DAY NG 03/18/18 09:00 04/05/18 17:59 03/21/18 09:13 Heparin Sodium/ Sodium Chloride (Heparin 2000 units/Ns 1000ml premix) 2,000 unit ONCE PRN INJ PICC LINE 03/20/18 11:30 03/21/18 23:59 Ipratropium [place] (Atrovent) 500 mcg Q8HRT PRN HHN Shortness of Breath 03/18/18 04:45 03/23/18 04:44 03/18/18 05:33 Iron Sucrose 100 mg/Sodium Chloride 60 ml @ 240 mls/hr BEDTIME IV 03/20/18 21:00 03/24/18 21:14 03/20/18 21:10 Levalbuterol HCl (Xopenex) 1.25 mg Q8HRT PRN HHN Shortness of Breath 03/18/18 04:45 03/23/18 04:44 03/18/18 05:33 Lidocaine HCl (Xylocaine 1% 30ml) 30 ml ONCE PRN INJ PICC LINE 03/20/18 11:30 03/21/18 23:59 Metronidazole (Flagyl) 500 mg Q8HR ORAL 03/19/18 14:00 03/26/18 13:59 03/21/18 05:05 Nitroglycerin (Ntg) 0.4 mg Q5M PRN SL Prn Chest Pain 03/18/18 04:45 04/05/18 17:10 Olanzapine (ZyPREXA) 2.5 mg Q6H PRN NG agitation 03/18/18 10:00 04/07/18 15:53 Ondansetron HCl (Zofran) 4 mg Q6H PRN IVP Nausea & Vomiting 03/18/18 10:00 04/05/18 15:53 Polyethylene Glycol (Miralax) 17 gm DAILYPRN PRN NG Constipation 03/18/18 16:00 04/06/18 15:53 Promethazine HCl/ Codeine (Phenergan with Codeine) 5 ml Q4H PRN NG For Cough 03/18/18 05:15 04/05/18 17:11 Sodium Hypochlorite (Dakin's Quarter Strength) 1 applic DAILY TOPIC 03/18/18 09:00 04/13/18 12:29 03/21/18 09:14 Tamsulosin HCl (Flomax) 0.4 mg BEDTIME ORAL 03/18/18 21:00 04/05/18 20:59 03/20/18 21:10 Temazepam (Restoril) 15 mg HSPRN PRN ORAL Insomnia 03/18/18 15:15 03/21/18 15:14 Vancomycin HCl (Vanco rx to dose) 1 ea DAILY PRN MISC Per rx protocol 03/18/18 09:00 04/14/18 10:59 Vancomycin/Sodium Chloride 250 ml @ 166.667 mls/hr Q12HR@0200,1400 IVPB 03/21/18 02:00 03/26/18 01:59 03/21/18 02:35 Rishi Gutierrez MD Mar 21, 2018 11:05
[2018-03-21] MEDS: D5 1/2NS w/KCL 10meq 1,000 ML IV SCH (11:18)
--- NOTE | 2018-03-21 12:29 | Pre-Procedure Note/Attestation ---
Pre-Procedure Note/Attestation Complete Prior to Procedure Planned Procedure: not applicable Procedure Narrative: egd/peg Indications for Procedure Pre-Operative Diagnosis: dysphagia,/FTT Attestation I attest that I discussed the nature of the procedure; its benefits; risks and complications; and alternatives (and the risks and benefits of such alternatives ), prior to the procedure, with the patient (or the patient's legal sales representative raw fibers). I attest that, if there was a reasonable possibility of needing a blood transfusion, the patient (or the patient's legal sales representative raw fibers) was given the [facility] standardized written summary, pursuant to the [place] Blood Safety Act ([place] Health and Safety Code # 1645, as amended). I attest that I re-evaluated the patient just prior to the surgery and that there has been no change in the patient's H&P, except as documented below: Ernesto Velez MD Mar 21, 2018 12:29
--- NOTE | 2018-03-21 12:52 | GI Progress Note ---
Assessment/Plan Problems: (1) Encounter for PEG (percutaneous endoscopic gastrostomy) ICD Codes: Z43.1 - Encounter for attention to gastrostomy SNOMED: 780070957, 568314046 (2) Dysphasia ICD Codes: R47.02 - Dysphasia SNOMED: 14374806 (3) Atrial fibrillation with RVR ICD Codes: I48.91 - Unspecified atrial fibrillation SNOMED: 460091643075413 Assessment/Plan manager social media note 03/20/2018 indicating that the son and bioethic team agreed to PEG placement plan for today Subjective Gastrointestinal/Abdominal: Reports: other Objective Last 24 Hour Vital Signs Date Time Temp Pulse Resp B/P (MAP) Pulse Ox O2 Delivery O2 Flow Rate FiO2 03/21/18 12:00 74 03/21/18 12:00 Nasal Cannula 3.0 03/21/18 09:14 95 121/60 03/21/18 08:00 Nasal Cannula 3.0 03/21/18 08:00 98.2 95 24 121/60 (80) 92 03/21/18 07:39 74 03/21/18 04:04 Nasal Cannula 3.0 03/21/18 04:00 98.3 87 24 106/56 (73) 100 03/21/18 03:57 63 03/21/18 03:14 81 03/21/18 00:00 98.8 92 24 102/54 (70) 100 03/21/18 00:00 Nasal Cannula 3.0 03/20/18 23:17 84 03/20/18 22:56 98 Nasal Cannula 3.0 32 03/20/18 21:28 Nasal Cannula 3.0 32 03/20/18 21:28 98 Nasal Cannula 3.0 32 03/20/18 20:00 98.6 102 24 96/53 (67) 100 03/20/18 20:00 Nasal Cannula 3.0 03/20/18 19:33 91 03/20/18 16:00 86 03/20/18 16:00 98.1 87 24 100/56 (71) 100 03/20/18 16:00 Nasal Cannula 3.0 Intake and Output 03/20/18 03/21/18 19:00 07:00 Intake Total 930 ml 916.667 ml Output Total 700 ml 1525 ml Balance 230 ml -608.333 ml IV Total 930 ml 916.667 ml Output Urine Total 700 ml 1400 ml Stool Total 125 ml Laboratory Tests Test 03/20/18 13:00 03/21/18 04:20 Vancomycin Level Trough 8.3 ug/mL (5.0-12.0) White Blood Count 10.4 K/UL (4.8-10.8) Red Blood Count 2.94 M/UL (4.20-5.40) L Hemoglobin 9.0 G/DL (12.0-16.0) L Hematocrit 26.8 % (37.0-47.0) L Mean Corpuscular Volume 91 FL (80-99) Mean Corpuscular Hemoglobin 30.7 PG (27.0-31.0) Mean Corpuscular Hemoglobin Concent 33.7 G/DL (32.0-36.0) Red Cell Distribution Width 13.5 % (11.6-14.8) Platelet Count 276 K/UL (150-450) Mean Platelet Volume 4.2 FL (6.5-10.1) L Neutrophils (%) (Auto) 71.5 % (45.0-75.0) Lymphocytes (%) (Auto) 16.9 % (20.0-45.0) L Monocytes (%) (Auto) 10.1 % (1.0-10.0) H Eosinophils (%) (Auto) 0.9 % (0.0-3.0) Basophils (%) (Auto) 0.6 % (0.0-2.0) Sodium Level 138 MMOL/L (136-145) Potassium Level 3.9 MMOL/L (3.5-5.1) Chloride Level 103 MMOL/L (98-107) Carbon Dioxide Level 32 MMOL/L (21-32) Anion Gap 4 mmol/L (5-15) L Blood Urea Nitrogen 7 mg/dL (7-18) Creatinine 0.5 MG/DL (0.55-1.30) L Estimat Glomerular Filtration Rate mL/min (>60) Glucose Level 87 MG/DL (74-106) Calcium Level 8.3 MG/DL (8.5-10.1) L Phosphorus Level 3.6 MG/DL (2.5-4.9) Magnesium Level 1.8 MG/DL (1.8-2.4) Total Bilirubin 0.4 MG/DL (0.2-1.0) Aspartate Amino Transf (AST/SGOT) 27 U/L (15-37) Alanine Aminotransferase (ALT/SGPT) 23 U/L (12-78) Alkaline Phosphatase 137 U/L (46-116) H Total Protein 4.6 G/DL (6.4-8.2) L Albumin 1.2 G/DL (3.4-5.0) L Globulin 3.4 g/dL Albumin/Globulin Ratio 0.4 (1.0-2.7) L Height (Feet): 5 Height (Inches): 3.00 Weight (Pounds): 160 General Appearance: lethargic Cardiovascular: normal rate Respiratory/Chest: decreased breath sounds Abdominal Exam: normal bowel sounds, non tender, soft Extremities: non-tender Ernesto Velez MD Mar 21, 2018 12:52
[2018-03-21] MEDS ORDERED: Lidocaine 1% MPF 10mg/ml 5ml ONE (13:00)
[2018-03-21] MEDS ORDERED: Phenylephrine 10mg/ml Vial ONE (13:00)
[2018-03-21] MEDS ORDERED: NS 500ML IVPB ONE (13:00)
[2018-03-21] MEDS ORDERED: Propofol 200mg/20ml IV ONE (13:00)
--- NOTE | 2018-03-21 13:07 | Endoscopy Procedure Note ---
Endoscopy Procedure Note General Indication for Procedure: dysphagia/FTT Procedures Performed: EGD, PEG Operative Findings/Diagnosis: same Specimen: none Pt Tolerated Procedure Well: Yes Estimated Blood Loss: none Anesthesia Anesthesiologist: roxanne Anesthesia: MAC Inserted Devices Implant(s) used?: No GI Core Measures 50 yrs or older w/o bx or poly: Not Applicable 10yrs. F/U not recommended: Not Applicable Ernesto Velez MD Mar 21, 2018 13:07
--- NOTE | 2018-03-21 13:45 | Anethesia Preoperative Eval ---
Anesthesia Pre-op PMH/ROS General Date of Evaluation: Mar 21, 2018 Time of Evaluation: 13:00 Anesthesiologist: Kari Waldron CRNA ASA Score: ASA 3 Mallampati Score Class I : Soft palate, uvula, fauces, pillars visible Class II: Soft palate, uvula, fauces visible Class III: Soft palate, base of uvula visible Class IV: Only hard plate visible Mallampati Classification: Class III Surgeon: Rosie Diagnosis: sepsis, severe malnutrition Surgical Procedure: EGD, PEG placement Anesthesia History: none Family History: no anesthesia problems Allergies: Coded Allergies: No Known Allergies (Unverified , 03/06/18) Medications: see eMAR Patient NPO?: Yes NPO Date: Mar 21, 2018 NPO Time: 00:00 Past Medical History Cardiovascular: Reports: HTN, arrhythmia, other - hypercholesterolemia; Denies: CAD, [place], valve dz Pulmonary: Reports: other - O2 dependent 3 LPM Gastrointestinal/Genitourinary: Reports: GERD, other - UTI, pyelonephritis, colostomy; Denies: CRI, ESRD Neurologic/Psychiatric: Reports: dementia, CVA; Denies: depression/anxiety, TIA, other Endocrine: Denies: DM, hypothyroidism, steroids, other Hematology/Immune: Reports: anemia, other - severe edema; Denies: DVT, bleeding disorder Musculoskeletal/Integumentary: Reports: other - severe contracture; Denies: OA, RA, DJD, DDD, edema Other: other - sepsis, malnutrition, FTT PMH Narrative: as above PSxH Narrative: see H & P Anesthesia Pre-op Phys. Exam Physician Exam Last Vital Signs Date Time Temp Pulse Resp B/P (MAP) Pulse Ox O2 Delivery O2 Flow Rate FiO2 03/21/18 12:00 74 03/21/18 12:00 Nasal Cannula 3.0 03/21/18 09:14 121/60 03/21/18 08:00 98.2 24 92 03/20/18 22:56 32 Constitutional: NAD, other - severely contractured, edematous Neurologic: other - dementia, non verbal Cardiovascular: no M/R/G Respiratory: CTA Gastrointestinal: other - colostomy, NG tube in situ Airway Exam Mallampati Score: Class III MO: limited Neck: extremely stiff TMD: > 3 FB ROM: limited Teeth: missing, broken, loose Dentures: no upper, no lower Anesthesia Pre-op A/P Labs Hematology Test 03/21/18 04:20 White Blood Count 10.4 K/UL (4.8-10.8) Red Blood Count 2.94 M/UL (4.20-5.40) L Hemoglobin 9.0 G/DL (12.0-16.0) L Hematocrit 26.8 % (37.0-47.0) L Mean Corpuscular Volume 91 FL (80-99) Mean Corpuscular Hemoglobin 30.7 PG (27.0-31.0) Mean Corpuscular Hemoglobin Concent 33.7 G/DL (32.0-36.0) Red Cell Distribution Width 13.5 % (11.6-14.8) Platelet Count 276 K/UL (150-450) Mean Platelet Volume 4.2 FL (6.5-10.1) L Neutrophils (%) (Auto) 71.5 % (45.0-75.0) Lymphocytes (%) (Auto) 16.9 % (20.0-45.0) L Monocytes (%) (Auto) 10.1 % (1.0-10.0) H Eosinophils (%) (Auto) 0.9 % (0.0-3.0) Basophils (%) (Auto) 0.6 % (0.0-2.0) Chemistry Test 03/21/18 04:20 Sodium Level 138 MMOL/L (136-145) Potassium Level 3.9 MMOL/L (3.5-5.1) Chloride Level 103 MMOL/L (98-107) Carbon Dioxide Level 32 MMOL/L (21-32) Anion Gap 4 mmol/L (5-15) L Blood Urea Nitrogen 7 mg/dL (7-18) Creatinine 0.5 MG/DL (0.55-1.30) L Estimat Glomerular Filtration Rate mL/min (>60) Glucose Level 87 MG/DL (74-106) Calcium Level 8.3 MG/DL (8.5-10.1) L Phosphorus Level 3.6 MG/DL (2.5-4.9) Magnesium Level 1.8 MG/DL (1.8-2.4) Total Bilirubin 0.4 MG/DL (0.2-1.0) Aspartate Amino Transf (AST/SGOT) 27 U/L (15-37) Alanine Aminotransferase (ALT/SGPT) 23 U/L (12-78) Alkaline Phosphatase 137 U/L (46-116) H Total Protein 4.6 G/DL (6.4-8.2) L Albumin 1.2 G/DL (3.4-5.0) L Globulin 3.4 g/dL Albumin/Globulin Ratio 0.4 (1.0-2.7) L Studies Pre-op Studies: EKG - AF, EF estimated 60-65% Risk Assessment & Plan Assessment: ASA 3, ok to proceed Plan: MAC Status Change Before Surgery: No Pre-Antibiotics Given Within 1 Hr of Incision: No Kari Waldron CRNA Mar 21, 2018 13:45
--- NOTE | 2018-03-21 13:47 | Immediate Post-Op Evaluation ---
Immediate Post-Op Evalulation Immediate Post-Op Evalulation Procedure: EGD, PEG placement Date of Evaluation: Mar 21, 2018 Time of Evaluation: 13:30 IV Fluids: 0.9 NS 100 ml Blood Pressure Systolic: 104 Blood Pressure Diastolic: 54 Pulse Rate: 75 Respiratory Rate: 12 O2 Sat by Pulse Oximetry: 96 Temperature (Fahrenheit): 97.9 Pain Score (1-10): 0 Nausea: No Vomiting: No Complications none Patient Status: awake, reacts, patent Hydration Status: adequate Given Within 1 Hr of Incision: Kari Natarajan CRNA Mar 21, 2018 13:47
--- NOTE | 2018-03-21 13:49 | 48 Hour Post Anesthesia Eval ---
Post Anesthesia Evaluation Procedure: EGD, PEG placement Date of Evaluation: Mar 21, 2018 Time of Evaluation: 13:49 Blood Pressure Systolic: 103 0: 54 Pulse Rate: 78 Respiratory Rate: 24 Temperature (Fahrenheit): 97.9 O2 Sat by Pulse Oximetry: 95 Airway: patent Nausea: No Vomiting: No Pain Intensity: 0 Hydration Status: adequate Cardiopulmonary Status: stable Mental Status/LOC: patient returned to baseline Follow-up Care/Observations: per hospitalist Post-Anesthesia Complications: none Kari Waldron CRNA Mar 21, 2018 13:49
--- NOTE | 2018-03-21 14:21 | Cardiac Electrophysiology PN ---
Assessment/Plan Status Narrative Technically difficult study due to patient was contracted. Study quality precludes accurate assessment of regional wall motion. Normal left ventricular chamber size, systolic function and wall motion. Left ventricular ejection fraction estimated to be 60-65 %. Mild left ventricular hypertrophy. Small circumferential pericardial effusion. Mild left atrial enlargement. Right cardiac chamber sizes are within normal limits. Aortic valve calcification with decreased cusp excursion c/w aortic stenosis. Mildly thickened mitral valve leaflets with normal excursion. Moderate mitral annulus and aortic root calcification. Normal pulmonic valve structure. Normal tricuspid valve structure. Subcostal views not obtainable due to G tube. Assessment/Plan 1. Atrial fibrillation with rapid ventricular response. Now in SR with frequent PACs. On Atenolol 25 mg daily. Echo EF 65% 2. Urosepsis. On IV antibiotic per ID. 3. Hypertension, on atenolol. 4. Sacral decubitus ulcer. 5. Dementia. 6. Dysphagia. G-tube placement pending today KEIRY RN Subjective Subjective Remained in SR. NPO for PEG placement Objective Last 24 Hour Vital Signs Date Time Temp Pulse Resp B/P (MAP) Pulse Ox O2 Delivery O2 Flow Rate FiO2 03/21/18 13:57 78 22 116/65 96 Nasal Cannula 4 03/21/18 13:49 78 24 95 03/21/18 13:47 75 12 96 03/21/18 13:40 78 22 107/58 93 Nasal Cannula 4 03/21/18 13:35 78 22 103/54 93 Nasal Cannula 3 03/21/18 13:30 97.9 75 22 104/54 96 Nasal Cannula 3 03/21/18 12:00 74 03/21/18 12:00 Nasal Cannula 3.0 03/21/18 09:14 95 121/60 03/21/18 08:00 Nasal Cannula 3.0 03/21/18 08:00 98.2 95 24 121/60 (80) 92 03/21/18 07:39 74 03/21/18 04:04 Nasal Cannula 3.0 03/21/18 04:00 98.3 87 24 106/56 (73) 100 03/21/18 03:57 63 03/21/18 03:14 81 03/21/18 00:00 98.8 92 24 102/54 (70) 100 03/21/18 00:00 Nasal Cannula 3.0 03/20/18 23:17 84 03/20/18 22:56 98 Nasal Cannula 3.0 32 03/20/18 21:28 Nasal Cannula 3.0 32 03/20/18 21:28 98 Nasal Cannula 3.0 32 03/20/18 20:00 98.6 102 24 96/53 (67) 100 03/20/18 20:00 Nasal Cannula 3.0 03/20/18 19:33 91 03/20/18 16:00 86 03/20/18 16:00 98.1 87 24 100/56 (71) 100 03/20/18 16:00 Nasal Cannula 3.0 Intake and Output 03/20/18 03/21/18 19:00 07:00 Intake Total 930 ml 916.667 ml Output Total 700 ml 1525 ml Balance 230 ml -608.333 ml IV Total 930 ml 916.667 ml Output Urine Total 700 ml 1400 ml Stool Total 125 ml Laboratory Tests Test 03/21/18 04:20 White Blood Count 10.4 K/UL (4.8-10.8) Red Blood Count 2.94 M/UL (4.20-5.40) L Hemoglobin 9.0 G/DL (12.0-16.0) L Hematocrit 26.8 % (37.0-47.0) L Mean Corpuscular Volume 91 FL (80-99) Mean Corpuscular Hemoglobin 30.7 PG (27.0-31.0) Mean Corpuscular Hemoglobin Concent 33.7 G/DL (32.0-36.0) Red Cell Distribution Width 13.5 % (11.6-14.8) Platelet Count 276 K/UL (150-450) Mean Platelet Volume 4.2 FL (6.5-10.1) L Neutrophils (%) (Auto) 71.5 % (45.0-75.0) Lymphocytes (%) (Auto) 16.9 % (20.0-45.0) L Monocytes (%) (Auto) 10.1 % (1.0-10.0) H Eosinophils (%) (Auto) 0.9 % (0.0-3.0) Basophils (%) (Auto) 0.6 % (0.0-2.0) Sodium Level 138 MMOL/L (136-145) Potassium Level 3.9 MMOL/L (3.5-5.1) Chloride Level 103 MMOL/L (98-107) Carbon Dioxide Level 32 MMOL/L (21-32) Anion Gap 4 mmol/L (5-15) L Blood Urea Nitrogen 7 mg/dL (7-18) Creatinine 0.5 MG/DL (0.55-1.30) L Estimat Glomerular Filtration Rate mL/min (>60) Glucose Level 87 MG/DL (74-106) Calcium Level 8.3 MG/DL (8.5-10.1) L Phosphorus Level 3.6 MG/DL (2.5-4.9) Magnesium Level 1.8 MG/DL (1.8-2.4) Total Bilirubin 0.4 MG/DL (0.2-1.0) Aspartate Amino Transf (AST/SGOT) 27 U/L (15-37) Alanine Aminotransferase (ALT/SGPT) 23 U/L (12-78) Alkaline Phosphatase 137 U/L (46-116) H Total Protein 4.6 G/DL (6.4-8.2) L Albumin 1.2 G/DL (3.4-5.0) L Globulin 3.4 g/dL Albumin/Globulin Ratio 0.4 (1.0-2.7) L Microbiology Date/Time Source Procedure Growth Status 03/19/18 15:26 Indwelling Cath Urine Culture - Preliminary YEAST Resulted Objective HEAD AND NECK: No JVD. LUNGS: Coarse rhonchi. CARDIOVASCULAR: Irregular S1 and S2 with no gallop. ABDOMEN: Status post colostomy. EXTREMITIES: No pitting edema Fredrick Burk MD Mar 21, 2018 14:21
--- NOTE | 2018-03-21 16:29 | General Progress Note ---
Progress Note Progress Note surgery: dressings changed. wound looks good after debridement. good hemostasis. good bleeding tissue. will hope for good granulation tissue and possible flap in future. cont with wound care as scheduled. thank you Derick Ramsay Mar 21, 2018 16:29
--- NOTE | 2018-03-21 18:32 | Internal Med Progress Note ---
Subjective Physician Name Davian Scott Attending Physician Davian Scott MD Current Medications Medications (Trade) Dose Ordered Sig/Cele Route PRN Reason Start Time Stop Time Status Last Admin Dose Admin Acetaminophen (Tylenol) 650 mg Q4H PRN NG fever (temp>100.5F) 03/18/18 05:45 04/17/18 05:44 03/18/18 06:00 Atenolol (Tenormin) 25 mg DAILY NG 03/19/18 09:00 04/06/18 08:59 03/21/18 09:14 Cefepime HCl 1 gm/ Dextrose 55 ml @ 110 mls/hr DAILY IVPB 03/21/18 09:30 03/25/18 09:29 03/21/18 09:20 Chlorhexidine Gluconate (Sahra-Hex 2%) 1 applic DAILY@2000 TOPIC 03/18/18 20:00 04/13/18 19:59 Dextrose/ Electrolytes 1,000 ml @ 50 mls/hr Q20H IV 03/18/18 04:45 04/09/18 17:10 03/21/18 11:18 Gabapentin (Neurontin) 300 mg THREE TIMES A DAY NG 03/18/18 09:00 04/05/18 17:59 03/21/18 13:00 Heparin Sodium/ Sodium Chloride (Heparin 2000 units/Ns 1000ml premix) 2,000 unit ONCE PRN INJ PICC LINE 03/20/18 11:30 03/21/18 23:59 Ipratropium [place] (Atrovent) 500 mcg Q8HRT PRN HHN Shortness of Breath 03/18/18 04:45 03/23/18 04:44 03/18/18 05:33 Iron Sucrose 100 mg/Sodium Chloride 60 ml @ 240 mls/hr BEDTIME IV 03/20/18 21:00 03/24/18 21:14 03/20/18 21:10 Levalbuterol HCl (Xopenex) 1.25 mg Q8HRT PRN HHN Shortness of Breath 03/18/18 04:45 03/23/18 04:44 03/18/18 05:33 Lidocaine HCl (Xylocaine 1% 30ml) 30 ml ONCE PRN INJ PICC LINE 03/20/18 11:30 03/21/18 23:59 Metronidazole (Flagyl) 500 mg Q8HR ORAL 03/19/18 14:00 03/26/18 13:59 03/21/18 14:00 Nitroglycerin (Ntg) 0.4 mg Q5M PRN SL Prn Chest Pain 03/18/18 04:45 04/05/18 17:10 Olanzapine (ZyPREXA) 2.5 mg Q6H PRN NG agitation 03/18/18 10:00 04/07/18 15:53 Ondansetron HCl (Zofran) 4 mg Q6H PRN IVP Nausea & Vomiting 03/18/18 10:00 04/05/18 15:53 Polyethylene Glycol (Miralax) 17 gm DAILYPRN PRN NG Constipation 03/18/18 16:00 04/06/18 15:53 Promethazine HCl/ Codeine (Phenergan with Codeine) 5 ml Q4H PRN NG For Cough 03/18/18 05:15 04/05/18 17:11 Sodium Hypochlorite (Dakin's Quarter Strength) 1 applic DAILY TOPIC 03/18/18 09:00 04/13/18 12:29 03/21/18 09:14 Tamsulosin HCl (Flomax) 0.4 mg BEDTIME ORAL 03/18/18 21:00 04/05/18 20:59 03/20/18 21:10 Vancomycin HCl (Vanco rx to dose) 1 ea DAILY PRN MISC Per rx protocol 03/18/18 09:00 04/14/18 10:59 Vancomycin/Sodium Chloride 250 ml @ 166.667 mls/hr Q12HR@0200,1400 IVPB 03/21/18 02:00 03/26/18 01:59 03/21/18 14:00 Allergies: Coded Allergies: No Known Allergies (Unverified , 03/06/18) Subjective awake, responsive with open eyes, not verbal, NAD, s/p PEG placement today. Objective Last Vital Signs Date Time Temp Pulse Resp B/P (MAP) Pulse Ox O2 Delivery O2 Flow Rate FiO2 03/21/18 16:00 Nasal Cannula 3.0 03/21/18 16:00 98.7 95 24 115/57 (76) 92 03/20/18 22:56 32 Laboratory Tests Test 03/21/18 04:20 White Blood Count 10.4 K/UL (4.8-10.8) Red Blood Count 2.94 M/UL (4.20-5.40) L Hemoglobin 9.0 G/DL (12.0-16.0) L Hematocrit 26.8 % (37.0-47.0) L Mean Corpuscular Volume 91 FL (80-99) Mean Corpuscular Hemoglobin 30.7 PG (27.0-31.0) Mean Corpuscular Hemoglobin Concent 33.7 G/DL (32.0-36.0) Red Cell Distribution Width 13.5 % (11.6-14.8) Platelet Count 276 K/UL (150-450) Mean Platelet Volume 4.2 FL (6.5-10.1) L Neutrophils (%) (Auto) 71.5 % (45.0-75.0) Lymphocytes (%) (Auto) 16.9 % (20.0-45.0) L Monocytes (%) (Auto) 10.1 % (1.0-10.0) H Eosinophils (%) (Auto) 0.9 % (0.0-3.0) Basophils (%) (Auto) 0.6 % (0.0-2.0) Sodium Level 138 MMOL/L (136-145) Potassium Level 3.9 MMOL/L (3.5-5.1) Chloride Level 103 MMOL/L (98-107) Carbon Dioxide Level 32 MMOL/L (21-32) Anion Gap 4 mmol/L (5-15) L Blood Urea Nitrogen 7 mg/dL (7-18) Creatinine 0.5 MG/DL (0.55-1.30) L Estimat Glomerular Filtration Rate mL/min (>60) Glucose Level 87 MG/DL (74-106) Calcium Level 8.3 MG/DL (8.5-10.1) L Phosphorus Level 3.6 MG/DL (2.5-4.9) Magnesium Level 1.8 MG/DL (1.8-2.4) Total Bilirubin 0.4 MG/DL (0.2-1.0) Aspartate Amino Transf (AST/SGOT) 27 U/L (15-37) Alanine Aminotransferase (ALT/SGPT) 23 U/L (12-78) Alkaline Phosphatase 137 U/L (46-116) H Total Protein 4.6 G/DL (6.4-8.2) L Albumin 1.2 G/DL (3.4-5.0) L Globulin 3.4 g/dL Albumin/Globulin Ratio 0.4 (1.0-2.7) L Microbiology Date/Time Source Procedure Growth Status 03/19/18 15:26 Indwelling Cath Urine Culture - Preliminary YEAST Resulted Intake and Output 03/20/18 03/21/18 18:59 06:59 Intake Total 930 ml 966.667 ml Output Total 700 ml 1525 ml Balance 230 ml -558.333 ml IV Total 930 ml 966.667 ml Output Urine Total 700 ml 1400 ml Stool Total 125 ml Objective General: No acute distress, awake and open eyes HEENT: NCAT, sclera anicteric, PERRL, Neck: Supple, no significant jugular venous distention, Lungs: fair inspiratory effort, Decrease air at bases, no Wheeze or Rales. Heart: Regular rate and rhythm, normal S1/S2, no murmur, Abdomen: soft, nontender, nondistended. Normoactive bowel sounds, PEG site intact. : [place] cath Extremities: No Cyanosis , clubbing or edema. Neuro: A&O x 1, Limited due to patient status, Functional Quadriplegia Skin: warm, no rashes, Assessment/Plan Assessment/Plan Sepsis due to UTI Bacteremia Probability early PNA Functional Quadriplegia. HTN Afib dysphagia HLD Dementia All extremities contracture Multiple Decubitus Ulcer Plan: Abx: Flagyl, Cefepime and Vanco IV Tube feeding hold. Full code heparin SQ F/U with labs and cultures. F/U with GI recommendation. Davian Scott MD Mar 21, 2018 18:32
[2018-03-21] MEDS: Iron Sucrose 100 MG in NS 55 ML IV SCH (21:00)
[2018-03-21] MEDS: Dyna-Hex 2% Top Sol 2oz TOPIC SCH (21:02)
[2018-03-21] MEDS: Tamsulosin 0.4mg cap ORAL SCH (21:02)
--- NOTE | 2018-03-21 22:36 | General Progress Note ---
Assessment/Plan Assessment/Plan Zyprexa prn recommend palliative care/hospice the pt lacks capacity to make decisions. Ativan prn The son is not calling back to our phone calls Subjective Neurologic/Psychiatric: Reports: anxiety, depressed, emotional problems Allergies: Coded Allergies: No Known Allergies (Unverified , 03/06/18) Subjective confused decrease episodes of agitation. the pt is the same dystonic Objective Last 24 Hour Vital Signs Date Time Temp Pulse Resp B/P (MAP) Pulse Ox O2 Delivery O2 Flow Rate FiO2 03/21/18 16:00 Nasal Cannula 3.0 03/21/18 16:00 98.7 95 24 115/57 (76) 92 03/21/18 16:00 72 03/21/18 13:57 78 22 116/65 96 Nasal Cannula 4 03/21/18 13:49 78 24 95 03/21/18 13:47 75 12 96 03/21/18 13:40 78 22 107/58 93 Nasal Cannula 4 03/21/18 13:35 78 22 103/54 93 Nasal Cannula 3 03/21/18 13:30 97.9 75 22 104/54 96 Nasal Cannula 3 03/21/18 12:00 74 03/21/18 12:00 Nasal Cannula 3.0 03/21/18 09:14 95 121/60 03/21/18 08:00 Nasal Cannula 3.0 03/21/18 08:00 98.2 95 24 121/60 (80) 92 03/21/18 07:39 74 03/21/18 04:04 Nasal Cannula 3.0 03/21/18 04:00 98.3 87 24 106/56 (73) 100 03/21/18 03:57 63 03/21/18 03:14 81 03/21/18 00:00 98.8 92 24 102/54 (70) 100 03/21/18 00:00 Nasal Cannula 3.0 03/20/18 23:17 84 03/20/18 22:56 98 Nasal Cannula 3.0 32 Intake and Output 03/20/18 03/21/18 18:59 06:59 Intake Total 930 ml 966.667 ml Output Total 700 ml 1525 ml Balance 230 ml -558.333 ml IV Total 930 ml 966.667 ml Output Urine Total 700 ml 1400 ml Stool Total 125 ml Laboratory Tests 03/21/18 04:20: White Blood Count 10.4, Red Blood Count 2.94L, Hemoglobin 9.0L, Hematocrit 26.8L , Mean Corpuscular Volume 91, Mean Corpuscular Hemoglobin 30.7, Mean Corpuscular Hemoglobin Concent 33.7, Red Cell Distribution Width 13.5, Platelet Count 276, Mean Platelet Volume 4.2L, Neutrophils (%) (Auto) 71.5, Lymphocytes ( %) (Auto) 16.9L, Monocytes (%) (Auto) 10.1H, Eosinophils (%) (Auto) 0.9, Basophils (%) (Auto) 0.6, Sodium Level 138, Potassium Level 3.9, Chloride Level 103, Carbon Dioxide Level 32, Anion Gap 4L, Blood Urea Nitrogen 7, Creatinine 0.5L, Estimat Glomerular Filtration Rate , Glucose Level 87, Calcium Level 8.3L , Phosphorus Level 3.6, Magnesium Level 1.8, Total Bilirubin 0.4, Aspartate Amino Transf (AST/SGOT) 27, Alanine Aminotransferase (ALT/SGPT) 23, Alkaline Phosphatase 137H, Total Protein 4.6L, Albumin 1.2L, Globulin 3.4, Albumin/ Globulin Ratio 0.4L Height (Feet): 5 Height (Inches): 3.00 Weight (Pounds): 160 General Appearance: alert, confused, agitated Bj Martinez MD Mar 21, 2018 22:36
[2018-03-22] VITALS (7 sets, daily range): BP systolic 83–126; BP diastolic 45–61
[2018-03-22] MEDS ORDERED: Nitroglycerin Subl 0.4mg tab SL PRN ×2 (00:30→16:15)
[2018-03-22] MEDS ORDERED: D5 1/2NS w/KCL 10meq 1,000 ML IV SCH (00:30)
[2018-03-22] MEDS ORDERED: Promethazine/Codeine 5ml UD NG PRN ×2 (01:15→17:15)
[2018-03-22] MEDS ORDERED: Acetaminophen 650mg/20.3ml NG PRN ×2 (01:45→17:45)
[2018-03-22] MEDS ORDERED: Vancomycin 750mg/NS 275ml 250 ML IVPB SCH (02:00)
[2018-03-22] MEDS ORDERED: OLANZapine 2.5mg tab NG PRN ×2 (04:00→16:00)
[2018-03-22] MEDS: metroNIDAZOLE 500mg tab ORAL SCH ×3 (05:35→21:48)
[2018-03-22] MEDS ORDERED: Ipratropium 0.02% Inh Soln 2.5ml UD HHN PRN (07:00)
[2018-03-22] MEDS ORDERED: Levalbuterol Inh UD 1.25mg/0.5ml HHN PRN (07:00)
[2018-03-22 07:28] LABS: ANION GAP 5 mmol/L (5-15); BLOOD UREA NITROGEN 8 mg/dL (7-18); CALCIUM 8.9 MG/DL (8.5-10.1); CARBON DIOXIDE 30 MMOL/L (21-32); CHLORIDE 104 MMOL/L (98-107); CREATININE 0.5 MG/DL (0.55-1.30); POTASSIUM 4.1 MMOL/L (3.5-5.1); SODIUM 139 MMOL/L (136-145)
[2018-03-22 07:41] LABS: BASOPHILS % (AUTO) 0.7 % (0.0-2.0); EOSINOPHILS % (AUTO) 0.5 % (0.0-3.0); HEMATOCRIT 28.8 % (37.0-47.0); HEMOGLOBIN 9.6 G/DL (12.0-16.0); LYMPHOCYTES % (AUTO) 12.8 % (20.0-45.0); MEAN CORPUSCULAR VOLUME 92 FL (80-99); MONOCYTES % (AUTO) 6.4 % (1.0-10.0); NEUTROPHILS % (AUTO) 79.6 % (45.0-75.0); PLATELET COUNT 331 K/UL (150-450); RED BLOOD COUNT 3.15 M/UL (4.20-5.40); RED CELL DISTRIBUTION WIDTH 13.9 % (11.6-14.8); WHITE BLOOD COUNT 9.8 K/UL (4.8-10.8)
--- NOTE | 2018-03-22 08:52 | Infectious Diseases Prog Note ---
Assessment/Plan Assessment/Plan Sepsis, resolved 2ry to UTI c/w bacteremia and prob early PNA -u/a wbc tntc, nit neg, luek +3; ucx >100k PsA (R cipro/levo, otherwise S), E. fecalis (S Amp, vanco) -03/06 Bcx 4/ P.mirabiis (R cipro, I Levo; otherwise S), 03/21 MRSE ( contaminant); 03/07 Neg Probable Pneum : -CXR: Subtle patchy opacities in the right upper lung raising question for developing pneumonia. Clinical correlation/follow-up recommended. -influenza sc neg -sp cx MRSA, C. albicans (Colonizer) 03/19/17 - CT C/A/P - Bilateral basilar pneumonia versus atelectasis. Small to moderate left pleural effusion and a small right pleural effusion noted. 03/19/17 UCx - Yeast Low grade fever, SP Leukocytosis - SP FTT HTN Afib dysphagia HLD Dementia contractures Plan: - Continue flagyl #06/20 for possible asp PNA - Continue IV Vanco d# 6/ - for PNA -Continue Cefepime # for Proteus bacteremia and PsA UTI -03/13 SP IV Vancomycin #7 -03/06 SP Meropenem x1 -Monitor CBC/CMP, temperatures -aspiration precautions Subjective Allergies: Coded Allergies: No Known Allergies (Unverified , 03/06/18) Subjective Patient remains afebrile Leukocytosis resolved opens eyes On 2L NC Objective Vital Signs Last 24 Hour Vital Signs Date Time Temp Pulse Resp B/P (MAP) Pulse Ox O2 Delivery O2 Flow Rate FiO2 03/22/18 08:15 Nasal Cannula 2.0 28 03/22/18 08:15 98 Nasal Cannula 2.0 28 03/22/18 08:08 94 94/55 03/22/18 08:07 97.9 94 19 94/55 (68) 99 03/22/18 04:00 97.9 85 19 118/58 (78) 99 03/22/18 03:58 Nasal Cannula 2.0 28 03/22/18 03:58 86 20 Nasal Cannula 2.0 28 03/22/18 03:56 98 Nasal Cannula 2.0 28 03/22/18 00:00 Nasal Cannula 3.0 03/22/18 00:00 98.1 86 16 126/56 (79) 93 03/21/18 20:00 97.9 77 16 90/50 (63) 92 03/21/18 20:00 Nasal Cannula 3.0 03/21/18 20:00 82 03/21/18 16:00 Nasal Cannula 3.0 03/21/18 16:00 98.7 95 24 115/57 (76) 92 03/21/18 16:00 72 03/21/18 13:57 78 22 116/65 96 Nasal Cannula 4 03/21/18 13:49 78 24 95 03/21/18 13:47 75 12 96 03/21/18 13:40 78 22 107/58 93 Nasal Cannula 4 03/21/18 13:35 78 22 103/54 93 Nasal Cannula 3 03/21/18 13:30 97.9 75 22 104/54 96 Nasal Cannula 3 03/21/18 12:00 74 03/21/18 12:00 Nasal Cannula 3.0 03/21/18 09:14 95 121/60 Height (Feet): 5 Height (Inches): 3.00 Weight (Pounds): 160 Objective General: NAD HEENT: NCAT, MMM Respiratory: Course B/L, No W Cardiovascular : tachycardia, systolic murmur, irregularly irregular Gastrointestinal: soft, non-distended, colostomy bag in place and PEG Neurologic: alert, non-verbal Microbiology Date/Time Source Procedure Growth Status 03/19/18 15:26 Indwelling Cath Urine Culture - Preliminary YEAST Resulted Laboratory Tests Test 03/22/18 06:20 White Blood Count 9.8 K/UL (4.8-10.8) Red Blood Count 3.15 M/UL (4.20-5.40) L Hemoglobin 9.6 G/DL (12.0-16.0) L Hematocrit 28.8 % (37.0-47.0) L Mean Corpuscular Volume 92 FL (80-99) Mean Corpuscular Hemoglobin 30.5 PG (27.0-31.0) Mean Corpuscular Hemoglobin Concent 33.3 G/DL (32.0-36.0) Red Cell Distribution Width 13.9 % (11.6-14.8) Platelet Count 331 K/UL (150-450) Mean Platelet Volume 4.8 FL (6.5-10.1) L Neutrophils (%) (Auto) 79.6 % (45.0-75.0) H Lymphocytes (%) (Auto) 12.8 % (20.0-45.0) L Monocytes (%) (Auto) 6.4 % (1.0-10.0) Eosinophils (%) (Auto) 0.5 % (0.0-3.0) Basophils (%) (Auto) 0.7 % (0.0-2.0) Sodium Level 139 MMOL/L (136-145) Potassium Level 4.1 MMOL/L (3.5-5.1) Chloride Level 104 MMOL/L (98-107) Carbon Dioxide Level 30 MMOL/L (21-32) Anion Gap 5 mmol/L (5-15) Blood Urea Nitrogen 8 mg/dL (7-18) Creatinine 0.5 MG/DL (0.55-1.30) L Estimat Glomerular Filtration Rate mL/min (>60) Glucose Level 127 MG/DL (74-106) H Calcium Level 8.9 MG/DL (8.5-10.1) Current Medications Medications (Trade) Dose Ordered Sig/Cele Route PRN Reason Start Time Stop Time Status Last Admin Dose Admin Acetaminophen (Tylenol) 650 mg Q4H PRN NG fever (temp>100.5F) 03/22/18 01:45 04/17/18 05:44 Atenolol (Tenormin) 25 mg DAILY NG 03/22/18 09:00 04/06/18 08:59 Cefepime HCl 1 gm/ Dextrose 55 ml @ 110 mls/hr DAILY IVPB 03/22/18 09:00 03/25/18 09:29 Chlorhexidine Gluconate (Sahra-Hex 2%) 1 applic DAILY@2000 TOPIC 03/22/18 20:00 04/13/18 19:59 Dextrose/ Electrolytes 1,000 ml @ 50 mls/hr Q20H IV 03/22/18 00:30 04/09/18 17:10 03/22/18 01:22 Gabapentin (Neurontin) 300 mg THREE TIMES A DAY NG 03/22/18 09:00 04/05/18 17:59 03/22/18 08:36 Ipratropium [place] (Atrovent) 500 mcg Q8HRT PRN HHN Shortness of Breath 03/22/18 07:00 03/23/18 04:44 Iron Sucrose 100 mg/Sodium Chloride 60 ml @ 240 mls/hr BEDTIME IV 03/22/18 21:00 03/25/18 21:14 Levalbuterol HCl (Xopenex) 1.25 mg Q8HRT PRN HHN Shortness of Breath 03/22/18 07:00 03/23/18 04:44 Metronidazole (Flagyl) 500 mg Q8HR ORAL 03/22/18 06:00 03/26/18 13:59 03/22/18 05:35 Nitroglycerin (Ntg) 0.4 mg Q5M PRN SL Prn Chest Pain 03/22/18 00:30 04/05/18 17:10 Olanzapine (ZyPREXA) 2.5 mg Q6H PRN NG agitation 03/22/18 04:00 04/07/18 15:53 Ondansetron HCl (Zofran) 4 mg Q6H PRN IVP Nausea & Vomiting 03/22/18 04:00 04/05/18 15:53 Polyethylene Glycol (Miralax) 17 gm DAILYPRN PRN NG Constipation 03/22/18 16:00 04/06/18 15:53 Promethazine HCl/ Codeine (Phenergan with Codeine) 5 ml Q4H PRN NG For Cough 03/22/18 01:15 04/05/18 17:11 Sodium Hypochlorite (Dakin's Quarter Strength) 1 applic DAILY TOPIC 03/22/18 09:00 04/13/18 12:29 03/22/18 08:36 Tamsulosin HCl (Flomax) 0.4 mg BEDTIME ORAL 03/22/18 21:00 04/05/18 20:59 Vancomycin HCl (Vanco rx to dose) 1 ea DAILY PRN MISC Per rx protocol 03/22/18 09:00 04/14/18 10:59 Vancomycin/Sodium Chloride 250 ml @ 166.667 mls/hr Q12HR@0200,1400 IVPB 03/22/18 02:00 03/26/18 01:59 03/22/18 01:24 Pacheco Umana MD Mar 22, 2018 08:52
[2018-03-22] MEDS ORDERED: Cefepime HCl 1 GM in D5W 55 ML IVPB SCH (09:00)
[2018-03-22] MEDS ORDERED: Atenolol 25mg tab NG SCH (09:00)
[2018-03-22] MEDS ORDERED: Dakin's 0.125% Soln (Quarter Strength) 16oz TOPIC SCH (09:00)
--- NOTE | 2018-03-22 10:07 | General Progress Note ---
Assessment/Plan Problem List: (1) Encounter for PEG (percutaneous endoscopic gastrostomy) ICD Codes: Z43.1 - Encounter for attention to gastrostomy SNOMED: 305538581, 546217535 (2) Dysphasia ICD Codes: R47.02 - Dysphasia SNOMED: 33766410 (3) Atrial fibrillation with RVR ICD Codes: I48.91 - Unspecified atrial fibrillation SNOMED: 251856263857214 Assessment/Plan s/p GT placement yesterday GTF and care fu labs dc planning per primary team Subjective ROS Limited/Unobtainable: No Allergies: Coded Allergies: No Known Allergies (Unverified , 03/06/18) Objective Last 24 Hour Vital Signs Date Time Temp Pulse Resp B/P (MAP) Pulse Ox O2 Delivery O2 Flow Rate FiO2 03/22/18 08:15 Nasal Cannula 2.0 28 03/22/18 08:15 98 Nasal Cannula 2.0 28 03/22/18 08:08 94 94/55 03/22/18 08:07 97.9 94 19 94/55 (68) 99 03/22/18 04:00 97.9 85 19 118/58 (78) 99 03/22/18 03:58 Nasal Cannula 2.0 28 03/22/18 03:58 86 20 Nasal Cannula 2.0 28 03/22/18 03:56 98 Nasal Cannula 2.0 28 03/22/18 00:00 Nasal Cannula 3.0 03/22/18 00:00 98.1 86 16 126/56 (79) 93 03/21/18 20:00 97.9 77 16 90/50 (63) 92 03/21/18 20:00 Nasal Cannula 3.0 03/21/18 20:00 82 03/21/18 16:00 Nasal Cannula 3.0 03/21/18 16:00 98.7 95 24 115/57 (76) 92 03/21/18 16:00 72 03/21/18 13:57 78 22 116/65 96 Nasal Cannula 4 03/21/18 13:49 78 24 95 03/21/18 13:47 75 12 96 03/21/18 13:40 78 22 107/58 93 Nasal Cannula 4 03/21/18 13:35 78 22 103/54 93 Nasal Cannula 3 03/21/18 13:30 97.9 75 22 104/54 96 Nasal Cannula 3 03/21/18 12:00 74 03/21/18 12:00 Nasal Cannula 3.0 Intake and Output 03/21/18 03/22/18 19:00 07:00 Intake Total 375 ml 70 ml Output Total 500 ml Balance -125 ml 70 ml IV Total 355 ml Tube Feeding 20 ml 70 ml Output Urine Total 500 ml Stool Total 0 ml Laboratory Tests 03/22/18 06:20: White Blood Count 9.8, Red Blood Count 3.15L, Hemoglobin 9.6L, Hematocrit 28.8L , Mean Corpuscular Volume 92, Mean Corpuscular Hemoglobin 30.5, Mean Corpuscular Hemoglobin Concent 33.3, Red Cell Distribution Width 13.9, Platelet Count 331, Mean Platelet Volume 4.8L, Neutrophils (%) (Auto) 79.6H, Lymphocytes (%) (Auto) 12.8L, Monocytes (%) (Auto) 6.4, Eosinophils (%) (Auto) 0.5, Basophils (%) (Auto) 0.7, Sodium Level 139, Potassium Level 4.1, Chloride Level 104, Carbon Dioxide Level 30, Anion Gap 5, Blood Urea Nitrogen 8, Creatinine 0.5L, Estimat Glomerular Filtration Rate , Glucose Level 127H, Calcium Level 8.9 Height (Feet): 5 Height (Inches): 3.00 Weight (Pounds): 160 General Appearance: no apparent distress EENT: normal ENT inspection Neck: supple Cardiovascular: normal rate Respiratory/Chest: decreased breath sounds Abdomen: normal bowel sounds, non tender, soft Pelvis: other - GT and colostomy tube in place Ernesto Velez MD Mar 22, 2018 10:07
--- NOTE | 2018-03-22 13:05 | Pulmonology Progress Note ---
Assessment/Plan Problems: (1) Pneumonia (2) Sepsis (3) Atrial fibrillation with RVR (4) Sacral decubitus ulcer, stage IV (5) At high risk for aspiration (6) Protein-calorie malnutrition, severe Assessment/Plan iv abx iv fluids check electrolytes all reviewed ethics committee recommended Gtube feeding, pt has extensive/nonhealing decubiti ulcers I suggest comfort care. Subjective ROS Limited/Unobtainable: No Constitutional: Reports: no symptoms HEENT: Repors: no symptoms Respiratory: Reports: no symptoms Allergies: Coded Allergies: No Known Allergies (Unverified , 03/06/18) Objective Last 24 Hour Vital Signs Date Time Temp Pulse Resp B/P (MAP) Pulse Ox O2 Delivery O2 Flow Rate FiO2 03/22/18 09:00 Nasal Cannula 2.0 03/22/18 08:15 Nasal Cannula 2.0 28 03/22/18 08:15 98 Nasal Cannula 2.0 28 03/22/18 08:08 94 94/55 03/22/18 08:07 97.9 94 19 94/55 (68) 99 03/22/18 04:00 97.9 85 19 118/58 (78) 99 03/22/18 03:58 Nasal Cannula 2.0 28 03/22/18 03:58 86 20 Nasal Cannula 2.0 28 03/22/18 03:56 98 Nasal Cannula 2.0 28 03/22/18 00:00 Nasal Cannula 3.0 03/22/18 00:00 98.1 86 16 126/56 (79) 93 03/21/18 20:00 97.9 77 16 90/50 (63) 92 03/21/18 20:00 Nasal Cannula 3.0 03/21/18 20:00 82 03/21/18 16:00 Nasal Cannula 3.0 03/21/18 16:00 98.7 95 24 115/57 (76) 92 03/21/18 16:00 72 03/21/18 13:57 78 22 116/65 96 Nasal Cannula 4 03/21/18 13:49 78 24 95 03/21/18 13:47 75 12 96 03/21/18 13:40 78 22 107/58 93 Nasal Cannula 4 03/21/18 13:35 78 22 103/54 93 Nasal Cannula 3 03/21/18 13:30 97.9 75 22 104/54 96 Nasal Cannula 3 Intake and Output 03/21/18 03/22/18 19:00 07:00 Intake Total 375 ml 115 ml Output Total 500 ml Balance -125 ml 115 ml IV Total 355 ml Tube Feeding 20 ml 115 ml Output Urine Total 500 ml Stool Total 0 ml Objective General Appearance: WD/WN HEENT: normocephalic, atraumatic Respiratory/Chest: chest wall non-tender, lungs clear Cardiovascular: normal peripheral pulses Abdomen: normal bowel sounds, G Tube in place Genitourinary: normal external genitalia Skin: no rash Microbiology Date/Time Source Procedure Growth Status 03/19/18 15:26 Indwelling Cath Urine Culture - Final Leda Albicans Complete Laboratory Tests 03/22/18 06:20: White Blood Count 9.8, Red Blood Count 3.15L, Hemoglobin 9.6L, Hematocrit 28.8L , Mean Corpuscular Volume 92, Mean Corpuscular Hemoglobin 30.5, Mean Corpuscular Hemoglobin Concent 33.3, Red Cell Distribution Width 13.9, Platelet Count 331, Mean Platelet Volume 4.8L, Neutrophils (%) (Auto) 79.6H, Lymphocytes (%) (Auto) 12.8L, Monocytes (%) (Auto) 6.4, Eosinophils (%) (Auto) 0.5, Basophils (%) (Auto) 0.7, Sodium Level 139, Potassium Level 4.1, Chloride Level 104, Carbon Dioxide Level 30, Anion Gap 5, Blood Urea Nitrogen 8, Creatinine 0.5L, Estimat Glomerular Filtration Rate , Glucose Level 127H, Calcium Level 8.9 Current Medications Medications (Trade) Dose Ordered Sig/Cele Route PRN Reason Start Time Stop Time Status Last Admin Dose Admin Acetaminophen (Tylenol) 650 mg Q4H PRN NG fever (temp>100.5F) 03/22/18 01:45 04/17/18 05:44 Atenolol (Tenormin) 25 mg DAILY NG 03/22/18 09:00 04/06/18 08:59 Cefepime HCl 1 gm/ Dextrose 55 ml @ 110 mls/hr DAILY IVPB 03/22/18 09:00 03/25/18 09:29 03/22/18 09:00 Chlorhexidine Gluconate (Sahra-Hex 2%) 1 applic DAILY@1999 TOPIC 03/22/18 20:00 04/13/18 19:59 Dextrose/ Electrolytes 1,000 ml @ 50 mls/hr Q20H IV 03/22/18 00:30 04/09/18 17:10 03/22/18 01:22 Gabapentin (Neurontin) 300 mg THREE TIMES A DAY NG 03/22/18 09:00 04/05/18 17:59 03/22/18 12:54 Ipratropium [place] (Atrovent) 500 mcg Q8HRT PRN HHN Shortness of Breath 03/22/18 07:00 03/23/18 04:44 Iron Sucrose 100 mg/Sodium Chloride 60 ml @ 240 mls/hr BEDTIME IV 03/22/18 21:00 03/25/18 21:14 Levalbuterol HCl (Xopenex) 1.25 mg Q8HRT PRN HHN Shortness of Breath 03/22/18 07:00 03/23/18 04:44 Metronidazole (Flagyl) 500 mg Q8HR ORAL 03/22/18 06:00 03/26/18 13:59 03/22/18 05:35 Nitroglycerin (Ntg) 0.4 mg Q5M PRN SL Prn Chest Pain 03/22/18 00:30 04/05/18 17:10 Olanzapine (ZyPREXA) 2.5 mg Q6H PRN NG agitation 03/22/18 04:00 04/07/18 15:53 Ondansetron HCl (Zofran) 4 mg Q6H PRN IVP Nausea & Vomiting 03/22/18 04:00 04/05/18 15:53 Polyethylene Glycol (Miralax) 17 gm DAILYPRN PRN NG Constipation 03/22/18 16:00 04/06/18 15:53 Promethazine HCl/ Codeine (Phenergan with Codeine) 5 ml Q4H PRN NG For Cough 03/22/18 01:15 04/05/18 17:11 Sodium Hypochlorite (Dakin's Quarter Strength) 1 applic DAILY TOPIC 03/22/18 09:00 04/13/18 12:29 03/22/18 08:36 Tamsulosin HCl (Flomax) 0.4 mg BEDTIME ORAL 03/22/18 21:00 04/05/18 20:59 Vancomycin HCl (Vanco rx to dose) 1 ea DAILY PRN MISC Per rx protocol 03/22/18 09:00 04/14/18 10:59 Vancomycin/Sodium Chloride 250 ml @ 166.667 mls/hr Q12HR@0200,1400 IVPB 03/22/18 02:00 03/26/18 01:59 03/22/18 01:24 Rishi Gutierrez MD Mar 22, 2018 13:05
--- NOTE | 2018-03-22 13:25 | Cardiac Electrophysiology PN ---
Assessment/Plan Status Narrative Technically difficult study due to patient was contracted. Study quality precludes accurate assessment of regional wall motion. Normal left ventricular chamber size, systolic function and wall motion. Left ventricular ejection fraction estimated to be 60-65 %. Mild left ventricular hypertrophy. Small circumferential pericardial effusion. Mild left atrial enlargement. Right cardiac chamber sizes are within normal limits. Aortic valve calcification with decreased cusp excursion c/w aortic stenosis. Mildly thickened mitral valve leaflets with normal excursion. Moderate mitral annulus and aortic root calcification. Normal pulmonic valve structure. Normal tricuspid valve structure. Subcostal views not obtainable due to G tube. Assessment/Plan 1. Atrial fibrillation with rapid ventricular response. Now in SR with frequent PACs. On Atenolol 25 mg daily. Echo EF 65% 2. Urosepsis. On IV antibiotic per ID. 3. Hypertension, on atenolol. 4. Sacral decubitus ulcer. 5. Dementia. 6. Dysphagia. S/P G-tube placement 03/21/17 KEIRY RN Subjective Subjective Off tele now. No events Had PEG placement Objective Last 24 Hour Vital Signs Date Time Temp Pulse Resp B/P (MAP) Pulse Ox O2 Delivery O2 Flow Rate FiO2 03/22/18 09:00 Nasal Cannula 2.0 03/22/18 08:15 Nasal Cannula 2.0 28 03/22/18 08:15 98 Nasal Cannula 2.0 28 03/22/18 08:08 94 94/55 03/22/18 08:07 97.9 94 19 94/55 (68) 99 03/22/18 04:00 97.9 85 19 118/58 (78) 99 03/22/18 03:58 Nasal Cannula 2.0 28 03/22/18 03:58 86 20 Nasal Cannula 2.0 28 03/22/18 03:56 98 Nasal Cannula 2.0 28 03/22/18 00:00 Nasal Cannula 3.0 03/22/18 00:00 98.1 86 16 126/56 (79) 93 03/21/18 20:00 97.9 77 16 90/50 (63) 92 03/21/18 20:00 Nasal Cannula 3.0 03/21/18 20:00 82 03/21/18 16:00 Nasal Cannula 3.0 03/21/18 16:00 98.7 95 24 115/57 (76) 92 03/21/18 16:00 72 03/21/18 13:57 78 22 116/65 96 Nasal Cannula 4 03/21/18 13:49 78 24 95 03/21/18 13:47 75 12 96 03/21/18 13:40 78 22 107/58 93 Nasal Cannula 4 03/21/18 13:35 78 22 103/54 93 Nasal Cannula 3 03/21/18 13:30 97.9 75 22 104/54 96 Nasal Cannula 3 Intake and Output 03/21/18 03/22/18 19:00 07:00 Intake Total 375 ml 115 ml Output Total 500 ml Balance -125 ml 115 ml IV Total 355 ml Tube Feeding 20 ml 115 ml Output Urine Total 500 ml Stool Total 0 ml Laboratory Tests Test 03/22/18 06:20 White Blood Count 9.8 K/UL (4.8-10.8) Red Blood Count 3.15 M/UL (4.20-5.40) L Hemoglobin 9.6 G/DL (12.0-16.0) L Hematocrit 28.8 % (37.0-47.0) L Mean Corpuscular Volume 92 FL (80-99) Mean Corpuscular Hemoglobin 30.5 PG (27.0-31.0) Mean Corpuscular Hemoglobin Concent 33.3 G/DL (32.0-36.0) Red Cell Distribution Width 13.9 % (11.6-14.8) Platelet Count 331 K/UL (150-450) Mean Platelet Volume 4.8 FL (6.5-10.1) L Neutrophils (%) (Auto) 79.6 % (45.0-75.0) H Lymphocytes (%) (Auto) 12.8 % (20.0-45.0) L Monocytes (%) (Auto) 6.4 % (1.0-10.0) Eosinophils (%) (Auto) 0.5 % (0.0-3.0) Basophils (%) (Auto) 0.7 % (0.0-2.0) Sodium Level 139 MMOL/L (136-145) Potassium Level 4.1 MMOL/L (3.5-5.1) Chloride Level 104 MMOL/L (98-107) Carbon Dioxide Level 30 MMOL/L (21-32) Anion Gap 5 mmol/L (5-15) Blood Urea Nitrogen 8 mg/dL (7-18) Creatinine 0.5 MG/DL (0.55-1.30) L Estimat Glomerular Filtration Rate mL/min (>60) Glucose Level 127 MG/DL (74-106) H Calcium Level 8.9 MG/DL (8.5-10.1) Microbiology Date/Time Source Procedure Growth Status 03/19/18 15:26 Indwelling Cath Urine Culture - Final Leda Albicans Complete Objective HEAD AND NECK: No JVD. LUNGS: Coarse rhonchi. CARDIOVASCULAR: Irregular S1 and S2 with no gallop. ABDOMEN: Status post colostomy. GT in place EXTREMITIES: No pitting edema Fredrick Burk MD Mar 22, 2018 13:25
[2018-03-22] MEDS ORDERED: Vancomycin 1gm in D5W 275ml IVPB SCH (15:00)
[2018-03-22] MEDS ORDERED: Miralax 17gm pkt NG PRN ×2 (16:00)
[2018-03-22] MEDS: D5 1/2NS w/KCL 10meq 1,000 ML IV SCH (17:00)
--- NOTE | 2018-03-22 17:04 | Internal Med Progress Note ---
Subjective Date of Service: Mar 22, 2018 Physician Name Shankar Betts Attending Physician Davian Scott MD Current Medications Medications (Trade) Dose Ordered Sig/Cele Route PRN Reason Start Time Stop Time Status Last Admin Dose Admin Acetaminophen (Tylenol) 650 mg Q4H PRN NG fever (temp>100.5F) 03/22/18 17:45 04/17/18 05:44 Atenolol (Tenormin) 25 mg DAILY NG 03/23/18 09:00 04/06/18 08:59 Cefepime HCl 1 gm/ Dextrose 55 ml @ 110 mls/hr DAILY IVPB 03/23/18 09:00 03/25/18 09:29 Chlorhexidine Gluconate (Sahra-Hex 2%) 1 applic DAILY@2000 TOPIC 03/22/18 20:00 04/13/18 19:59 Dextrose/ Electrolytes 1,000 ml @ 50 mls/hr Q20H IV 03/22/18 17:00 04/09/18 16:59 Gabapentin (Neurontin) 300 mg THREE TIMES A DAY NG 03/22/18 18:00 04/05/18 17:59 Ipratropium [place] (Atrovent) 500 mcg Q8H PRN HHN Shortness of Breath 03/22/18 16:00 03/27/18 15:59 Iron Sucrose 100 mg/Sodium Chloride 60 ml @ 240 mls/hr BEDTIME IV 03/22/18 21:00 03/25/18 21:14 Levalbuterol HCl (Xopenex) 1.25 mg Q8H PRN HHN Shortness of Breath 03/22/18 16:00 03/27/18 15:59 Metronidazole (Flagyl) 500 mg Q8HR ORAL 03/22/18 22:00 03/26/18 13:59 Nitroglycerin (Ntg) 0.4 mg Q5M PRN SL Prn Chest Pain 03/22/18 16:15 04/05/18 17:10 Olanzapine (ZyPREXA) 2.5 mg Q6H PRN NG agitation 03/22/18 16:00 04/07/18 15:59 Ondansetron HCl (Zofran) 4 mg Q6H PRN IVP Nausea & Vomiting 03/22/18 16:00 04/05/18 15:59 Polyethylene Glycol (Miralax) 17 gm DAILYPRN PRN NG Constipation 03/22/18 16:00 04/21/18 15:59 Promethazine HCl/ Codeine (Phenergan with Codeine) 5 ml Q4H PRN NG For Cough 03/22/18 17:15 04/05/18 17:11 Sodium Hypochlorite (Dakin's Quarter Strength) 1 applic DAILY TOPIC 03/23/18 09:00 04/13/18 12:29 Tamsulosin HCl (Flomax) 0.4 mg BEDTIME ORAL 03/22/18 21:00 04/05/18 20:59 Vancomycin HCl (Vanco rx to dose) 1 ea DAILY PRN MISC Per rx protocol 03/23/18 09:00 04/14/18 10:59 Vancomycin HCl 1 gm/Dextrose 275 ml @ 183.708 mls/hr Q12H IVPB 03/23/18 03:00 03/27/18 14:59 Allergies: Coded Allergies: No Known Allergies (Unverified , 03/06/18) ROS Limited/Unobtainable: No Constitutional: Reports: no symptoms HEENT: Reports: no symptoms Cardiovascular: Reports: no symptoms Respiratory: Reports: no symptoms Gastrointestinal/Abdominal: Reports: no symptoms Genitourinary: Reports: no symptoms Neurologic/Psychiatric: Reports: no symptoms Subjective 87 YO F admitted with hematuria and gen weakness. Now pyelonephritis and sepsis. Cover for Int Med-Dr Scott. Transfered to [facility] for tachycardia Objective Last Vital Signs Date Time Temp Pulse Resp B/P (MAP) Pulse Ox O2 Delivery O2 Flow Rate FiO2 03/22/18 15:47 140 117/61 (79) 03/22/18 12:00 97.9 19 99 03/22/18 09:00 Nasal Cannula 2.0 03/22/18 08:15 28 Laboratory Tests Test 03/22/18 06:20 03/22/18 13:00 White Blood Count 9.8 K/UL (4.8-10.8) Red Blood Count 3.15 M/UL (4.20-5.40) L Hemoglobin 9.6 G/DL (12.0-16.0) L Hematocrit 28.8 % (37.0-47.0) L Mean Corpuscular Volume 92 FL (80-99) Mean Corpuscular Hemoglobin 30.5 PG (27.0-31.0) Mean Corpuscular Hemoglobin Concent 33.3 G/DL (32.0-36.0) Red Cell Distribution Width 13.9 % (11.6-14.8) Platelet Count 331 K/UL (150-450) Mean Platelet Volume 4.8 FL (6.5-10.1) L Neutrophils (%) (Auto) 79.6 % (45.0-75.0) H Lymphocytes (%) (Auto) 12.8 % (20.0-45.0) L Monocytes (%) (Auto) 6.4 % (1.0-10.0) Eosinophils (%) (Auto) 0.5 % (0.0-3.0) Basophils (%) (Auto) 0.7 % (0.0-2.0) Sodium Level 139 MMOL/L (136-145) Potassium Level 4.1 MMOL/L (3.5-5.1) Chloride Level 104 MMOL/L (98-107) Carbon Dioxide Level 30 MMOL/L (21-32) Anion Gap 5 mmol/L (5-15) Blood Urea Nitrogen 8 mg/dL (7-18) Creatinine 0.5 MG/DL (0.55-1.30) L Estimat Glomerular Filtration Rate mL/min (>60) Glucose Level 127 MG/DL (74-106) H Calcium Level 8.9 MG/DL (8.5-10.1) Vancomycin Level Trough 14.8 ug/mL (5.0-12.0) H Intake and Output 03/21/18 03/22/18 19:00 07:00 Intake Total 375 ml 165 ml Output Total 500 ml Balance -125 ml 165 ml IV Total 355 ml 50 ml Tube Feeding 20 ml 115 ml Output Urine Total 500 ml Stool Total 0 ml Objective PHYSICAL EXAMINATION: GENERAL: The patient is a well-developed and well-nourished white female, in no apparent distress. HEENT: Eyes, pupils are equal and responsive to light and accommodation. Extraocular movements are intact. NECK: Supple without lymphadenopathy. CHEST: Decreased breath sounds at bilateral bases. Otherwise, clear to auscultation without wheezes or rales. CARDIOVASCULAR: Tachycardic. Regular rate and rhythm. S1, S2 are normal without murmurs, rubs, or gallops. ABDOMEN: Soft, nontender, and nondistended. Positive bowel sounds. No evidence of hepatosplenomegaly. Currently, no rebound or guarding noted. EXTREMITIES: Negative for clubbing, cyanosis, or edema. RECTAL/GENITAL: Deferred. NEUROLOGIC: Cranial nerves II through XII are grossly intact without focal deficits. Assessment/Plan Problem List: (1) Pyelonephritis Assessment & Plan: Pseudamonas and strep. See ID note-Continue cefepime and vanco (2) Sepsis (3) HTN (hypertension) Assessment & Plan: Currently hypotensive (4) Hypercholesteremia (5) Sacral decubitus ulcer, stage IV Assessment & Plan: See surgery note-dr Ramsay (6) Urinary tract infection Assessment & Plan: pseudamonas; continue cefepime per ID (7) Pneumonia Assessment & Plan: New RLL. Previously MRSA. Continue vanco per ID (8) Atrial fibrillation with RVR Assessment & Plan: Transfer to [facility]. Now sinus with frequent PVC-see cardiology note. Shankar Betts MD Mar 22, 2018 17:04
--- NOTE | 2018-03-22 17:45 | Procedure Note ---
DATE OF PROCEDURE: 03/21/2018 SURGEON: Ernesto Velez M.D. PROCEDURE: Upper endoscopy with PEG placement. ANESTHESIA: Per GASOLINE SERVICE ATTENDANT, . INSTRUMENT: Olympus adult flexible upper endoscope. INDICATION: Dysphagia and failure to thrive. REASON FOR PROCEDURE: The procedure, risks, benefits, and possible consequences, including hemorrhage, aspiration, perforation and infection, and alternative treatments, were explained to the patient/legal guardian by Dr. Ernesto Velez and the patient/legal guardian understood and accepted these risks. PROCEDURE IN DETAIL: After informed consent was obtained and the patient was adequately sedated, Olympus upper endoscope was advanced from mouth into the second portion of the duodenum and retroflexion was performed in the stomach. Under endoscopic guidance under sterile condition, a 20-Tajik pull type of G-tube was successfully placed in epigastric area. The distance from the tip of the tube to skin was about 2.5 cm in size. The patient tolerated the procedure very well without any complication. SUMMARY OF FINDINGS: Status post successful PEG placement. RECOMMENDATIONS: 1. Abdominal binder. 2. Elevate the head of the bed at all times. 3. G-tube flush. 4. G-tube care. 5. Start tube feeding later today. 6. The patient received a dose of antibiotics prior to this procedure. I want to thank Dr. Davian Scott, for this kind referral. Ernesto Velez M.D. DR: HUGH JOB#: [id number] CC: Davian Scott M.D.; Fax#: [phone]
[2018-03-22] MEDS ORDERED: Dyna-Hex 2% Top Sol 2oz TOPIC SCH ×2 (20:00)
[2018-03-22] MEDS: Levalbuterol Inh UD 1.25mg/0.5ml HHN PRN (20:21)
[2018-03-22] MEDS: Ipratropium 0.02% Inh Soln 2.5ml UD HHN PRN (20:21)
[2018-03-22] MEDS ORDERED: Tamsulosin 0.4mg cap ORAL SCH ×2 (21:00)
[2018-03-22] MEDS ORDERED: Iron Sucrose 100 MG in NS 55 ML IV SCH ×4 (21:00)
[2018-03-23] VITALS (32 sets, daily range): BP systolic 56–121; BP diastolic 16–91
[2018-03-23] MEDS ORDERED: Acetylcysteine 20% Soln 4ml HHN SCH (01:00)
[2018-03-23] MEDS: Vancomycin 1 GM in D5W 275 ML IVPB SCH ×2 (03:15→15:10)
[2018-03-23] MEDS: Ipratropium 0.02% Inh Soln 2.5ml UD HHN PRN ×2 (05:25→13:42)
[2018-03-23] MEDS: Levalbuterol Inh UD 1.25mg/0.5ml HHN PRN ×2 (05:25→13:42)
[2018-03-23] MEDS: Acetylcysteine 20% Soln 4ml HHN SCH ×3 (05:29→18:47)
[2018-03-23] MEDS: metroNIDAZOLE 500mg tab ORAL SCH ×3 (06:34→22:22)
[2018-03-23] MEDS: D5 1/2NS w/KCL 10meq 1,000 ML IV SCH ×2 (06:35→16:58)
--- NOTE | 2018-03-23 06:50 | General Progress Note ---
Assessment/Plan Problem List: (1) Encounter for PEG (percutaneous endoscopic gastrostomy) ICD Codes: Z43.1 - Encounter for attention to gastrostomy SNOMED: 390815868, 673178647 (2) Dysphasia ICD Codes: R47.02 - Dysphasia SNOMED: 23840718 (3) Atrial fibrillation with RVR ICD Codes: I48.91 - Unspecified atrial fibrillation SNOMED: 015053881330335 Assessment/Plan s/p GT placement GTF and care fu labs mild respiratory distress now on o2 mask fu pulm Subjective ROS Limited/Unobtainable: No Allergies: Coded Allergies: No Known Allergies (Unverified , 03/06/18) Objective Last 24 Hour Vital Signs Date Time Temp Pulse Resp B/P (MAP) Pulse Ox O2 Delivery O2 Flow Rate FiO2 03/23/18 05:33 117 24 91 Non-Rebreather 15.0 100 03/23/18 05:33 117 24 91 Non-Rebreather 15.0 100 03/23/18 04:00 114 03/23/18 04:00 98.4 114 24 115/91 (99) 90 03/23/18 00:00 99.0 108 24 94/61 (72) 90 03/23/18 00:00 108 03/22/18 21:00 Non-Rebreather 15.0 03/22/18 20:24 121 24 96 Non-Rebreather 15.0 100 03/22/18 20:21 Nasal Cannula 2.0 28 03/22/18 20:21 83 Nasal Cannula 2.0 28 03/22/18 20:21 121 24 83 Nasal Cannula 2.0 28 03/22/18 20:00 98.2 125 24 119/61 (80) 90 03/22/18 20:00 125 03/22/18 15:47 140 117/61 (79) 03/22/18 15:15 112 83/45 (58) 03/22/18 12:00 97.9 88 19 101/50 (67) 99 03/22/18 09:00 Nasal Cannula 2.0 03/22/18 08:15 Nasal Cannula 2.0 28 03/22/18 08:15 98 Nasal Cannula 2.0 28 03/22/18 08:08 94 94/55 03/22/18 08:07 97.9 94 19 94/55 (68) 99 Intake and Output 1/5/19 1/6/19 19:00 07:00 Intake Total 500 ml Output Total 300 ml Balance 200 ml IV Total 410 ml Tube Feeding 90 ml Output Urine Total 300 ml Laboratory Tests 03/22/18 13:00: Vancomycin Level Trough 14.8H 03/23/18 05:25: Arterial Blood pH 7.501H, Arterial Blood Partial Pressure CO2 36.4, Arterial Blood Partial Pressure O2 82.3, Arterial Blood HCO3 27.8H, Arterial Blood Oxygen Saturation 96.1, Arterial Blood Base Excess 4.5H, Temo Test Positive Height (Feet): 5 Height (Inches): 3.00 Weight (Pounds): 160 General Appearance: moderate distress EENT: normal ENT inspection Neck: supple Cardiovascular: tachycardia Respiratory/Chest: decreased breath sounds Abdomen: normal bowel sounds, non tender, soft Extremities: non-tender Ernesto Velez MD Mar 23, 2018 06:50
[2018-03-23] MEDS ORDERED: dilTIAZem HCl 25mg/5ml Inj IVP SCH (08:30)
[2018-03-23 08:39] LABS: HEMATOCRIT 37.1 % (37.0-47.0); HEMOGLOBIN 12.1 G/DL (12.0-16.0); MEAN CORPUSCULAR VOLUME 93 FL (80-99); PLATELET COUNT 410 K/UL (150-450); RED CELL DISTRIBUTION WIDTH 14.2 % (11.6-14.8); WHITE BLOOD COUNT 21.1 K/UL (4.8-10.8)
[2018-03-23] MEDS ORDERED: Atenolol 25mg tab NG SCH ×2 (09:00→18:00)
[2018-03-23] MEDS ORDERED: Dakin's 0.125% Soln (Quarter Strength) 16oz TOPIC SCH (09:00)
[2018-03-23] MEDS ORDERED: Cefepime HCl 1 GM in D5W 55 ML IVPB SCH (09:00)
[2018-03-23 09:18] LABS: ANION GAP 6 mmol/L (5-15); BLOOD UREA NITROGEN 12 mg/dL (7-18); CALCIUM 8.9 MG/DL (8.5-10.1); CARBON DIOXIDE 29 MMOL/L (21-32); CHLORIDE 102 MMOL/L (98-107); CREATININE 0.6 MG/DL (0.55-1.30); POTASSIUM 4.4 MMOL/L (3.5-5.1); SODIUM 137 MMOL/L (136-145)
--- NOTE | 2018-03-23 11:02 | Diagnostic Imaging Report ---
EXAM: XR Chest, 1 View CLINICAL HISTORY: SCREEN TECHNIQUE: Frontal view of the chest. COMPARISON: Chest x-ray dated 03/18/18 FINDINGS: Limitations: Patient's hand overlies the lateral aspect of the right chest, obscuring the lateral right lung base and costophrenic angle. Lungs: Persistent decreased lung volumes, which may be related to shallow inspiration. Interval worsening of consolidation in bilateral lung bases, right greater than left, concerning for atelectasis versus pneumonia. Increased right perihilar interstitial markings. Pleural space: Unremarkable. The costophrenic angles are sharp. No visible pneumothorax. Heart: Unremarkable. No cardiomegaly. Mediastinum: Unremarkable. Bones/joints: Unremarkable. Vasculature: Atherosclerotic calcifications are noted within the aortic arch. Tubes, lines and devices: EKG leads overlie the thorax. IMPRESSION: 1. Patient's hand overlies the lateral aspect of the right chest, obscuring the lateral right lung base and costophrenic angle. 2. Persistent decreased lung volumes, which may be related to shallow inspiration. 3. Interval worsening of consolidation in bilateral lung bases, right greater than left, concerning for atelectasis versus pneumonia. 4. Increased right perihilar interstitial markings.
[2018-03-23] MEDS ORDERED: Tubing IV Secondary IV ONE (11:08)
--- NOTE | 2018-03-23 15:43 | Pulmonology Progress Note ---
Assessment/Plan Problems: (1) Pneumonia (2) Sepsis (3) Atrial fibrillation with RVR (4) Sacral decubitus ulcer, stage IV (5) At high risk for aspiration (6) Protein-calorie malnutrition, severe Assessment/Plan iv abx iv fluids titrate fio2 to sat of 92% check electrolytes all reviewed dvt prophylaxis Subjective Interval Events: no new complains Allergies: Coded Allergies: No Known Allergies (Unverified , 03/06/18) Objective Last 24 Hour Vital Signs Date Time Temp Pulse Resp B/P (MAP) Pulse Ox O2 Delivery O2 Flow Rate FiO2 03/23/18 13:55 130 22 96 Non-Rebreather 15.0 100 03/23/18 13:42 125 24 95 Non-Rebreather 15.0 100 03/23/18 12:00 99.1 105 30 109/54 (72) 99 03/23/18 12:00 105 03/23/18 09:00 128 03/23/18 09:00 Non-Rebreather 15.0 03/23/18 08:45 133 121/64 03/23/18 08:44 133 121/64 03/23/18 08:05 84 Nasal Cannula 2.0 28 03/23/18 08:05 Nasal Cannula 2.0 28 03/23/18 08:00 98.9 133 28 121/64 (83) 94 03/23/18 05:33 117 24 91 Non-Rebreather 15.0 100 03/23/18 05:33 117 24 91 Non-Rebreather 15.0 100 03/23/18 04:00 114 03/23/18 04:00 98.4 114 24 115/91 (99) 90 03/23/18 00:00 99.0 108 24 94/61 (72) 90 03/23/18 00:00 108 03/22/18 21:00 Non-Rebreather 15.0 03/22/18 20:24 121 24 96 Non-Rebreather 15.0 100 03/22/18 20:21 Nasal Cannula 2.0 28 03/22/18 20:21 83 Nasal Cannula 2.0 28 03/22/18 20:21 121 24 83 Nasal Cannula 2.0 28 03/22/18 20:00 98.2 125 24 119/61 (80) 90 03/22/18 20:00 125 03/22/18 15:47 140 117/61 (79) Intake and Output 03/22/18 03/23/18 19:00 07:00 Intake Total 500 ml 1150 ml Output Total 300 ml 175 ml Balance 200 ml 975 ml IV Total 410 ml 750 ml Tube Feeding 90 ml 400 ml Output Urine Total 300 ml 175 ml Stool Total 0 ml Objective General Appearance: WD/WN HEENT: normocephalic, atraumatic Respiratory/Chest: chest wall non-tender, lungs clear Cardiovascular: normal peripheral pulses Abdomen: normal bowel sounds, G Tube in place Genitourinary: normal external genitalia Skin: no rash Microbiology Date/Time Source Procedure Growth Status 03/22/18 15:00 Sputum Induced Gram Stain - Final Resulted 03/22/18 15:00 Sputum Induced Sputum Culture Pending Resulted Laboratory Tests 03/23/18 05:25: Arterial Blood pH 7.501H, Arterial Blood Partial Pressure CO2 36.4, Arterial Blood Partial Pressure O2 82.3, Arterial Blood HCO3 27.8H, Arterial Blood Oxygen Saturation 96.1, Arterial Blood Base Excess 4.5H, Temo Test Positive 03/23/18 07:45: White Blood Count 21.1#H, Red Blood Count 4.00L, Hemoglobin 12.1, Hematocrit 37.1, Mean Corpuscular Volume 93, Mean Corpuscular Hemoglobin 30.2, Mean Corpuscular Hemoglobin Concent 32.5, Red Cell Distribution Width 14.2, Platelet Count 410, Mean Platelet Volume 4.7L, Neutrophils (%) (Auto) , Lymphocytes (%) ( Auto) , Monocytes (%) (Auto) , Eosinophils (%) (Auto) , Basophils (%) (Auto) , Differential Total Cells Counted 100, Neutrophils % (Manual) 88H, Lymphocytes % (Manual) 7L, Monocytes % (Manual) 4, Eosinophils % (Manual) 0, Basophils % ( Manual) 0, Band Neutrophils 1, Platelet Estimate Adequate, Platelet Morphology Normal, Anisocytosis 1+, Sodium Level 137, Potassium Level 4.4, Chloride Level 102, Carbon Dioxide Level 29, Anion Gap 6, Blood Urea Nitrogen 12, Creatinine 0.6, Estimat Glomerular Filtration Rate , Glucose Level 168H, Calcium Level 8.9 Current Medications Medications (Trade) Dose Ordered Sig/Cele Route PRN Reason Start Time Stop Time Status Last Admin Dose Admin Acetaminophen (Tylenol) 650 mg Q4H PRN NG fever (temp>100.5F) 03/22/18 17:45 04/17/18 05:44 Acetylcysteine (Mucomyst) 200 mg Q6HRT HHN 03/23/18 05:15 04/22/18 00:59 03/23/18 13:42 Atenolol (Tenormin) 25 mg DAILY NG 03/23/18 09:00 04/06/18 08:59 03/23/18 08:45 Cefepime HCl 1 gm/ Dextrose 55 ml @ 110 mls/hr DAILY IVPB 03/23/18 09:00 03/25/18 09:29 03/23/18 08:45 Chlorhexidine Gluconate (Sahra-Hex 2%) 1 applic DAILY@2000 TOPIC 03/22/18 20:00 04/13/18 19:59 Dextrose/ Electrolytes 1,000 ml @ 50 mls/hr Q20H IV 03/22/18 17:00 04/09/18 16:59 03/23/18 06:35 Diltiazem HCl 125 mg/Dextrose 125 ml @ 0 mls/hr Q24H IV 03/23/18 15:00 03/24/18 14:59 Gabapentin (Neurontin) 300 mg THREE TIMES A DAY NG 03/22/18 18:00 04/05/18 17:59 03/23/18 13:30 Ipratropium [place] (Atrovent) 500 mcg Q8H PRN HHN Shortness of Breath 03/22/18 16:00 03/27/18 15:59 03/23/18 13:42 Iron Sucrose 100 mg/Sodium Chloride 60 ml @ 240 mls/hr BEDTIME IV 03/22/18 21:00 03/25/18 21:14 03/22/18 21:10 Levalbuterol HCl (Xopenex) 1.25 mg Q8H PRN HHN Shortness of Breath 03/22/18 16:00 03/27/18 15:59 03/23/18 13:42 Metronidazole (Flagyl) 500 mg Q8HR ORAL 03/22/18 22:00 03/26/18 13:59 03/23/18 13:30 Nitroglycerin (Ntg) 0.4 mg Q5M PRN SL Prn Chest Pain 03/22/18 16:15 04/05/18 17:10 Olanzapine (ZyPREXA) 2.5 mg Q6H PRN NG agitation 03/22/18 16:00 04/07/18 15:59 Ondansetron HCl (Zofran) 4 mg Q6H PRN IVP Nausea & Vomiting 03/22/18 16:00 04/05/18 15:59 Polyethylene Glycol (Miralax) 17 gm DAILYPRN PRN NG Constipation 03/22/18 16:00 04/21/18 15:59 Promethazine HCl/ Codeine (Phenergan with Codeine) 5 ml Q4H PRN NG For Cough 03/22/18 17:15 04/05/18 17:11 Sodium Hypochlorite (Dakin's Quarter Strength) 1 applic DAILY TOPIC 03/23/18 09:00 04/13/18 12:29 03/23/18 08:45 Tamsulosin HCl (Flomax) 0.4 mg BEDTIME ORAL 03/22/18 21:00 04/05/18 20:59 03/22/18 21:48 Vancomycin HCl (Vanco rx to dose) 1 ea DAILY PRN MISC Per rx protocol 03/23/18 09:00 04/14/18 10:59 Vancomycin HCl 1 gm/Dextrose 275 ml @ 183.708 mls/hr Q12H IVPB 03/23/18 03:00 03/27/18 14:59 03/23/18 15:10 Rishi Gutierrez MD Mar 23, 2018 15:43
--- NOTE | 2018-03-23 15:45 | Internal Med Progress Note ---
Subjective Date of Service: Mar 23, 2018 Physician Name Shankar Betts Attending Physician Davian Scott MD Current Medications Medications (Trade) Dose Ordered Sig/Cele Route PRN Reason Start Time Stop Time Status Last Admin Dose Admin Acetaminophen (Tylenol) 650 mg Q4H PRN NG fever (temp>100.5F) 03/22/18 17:45 04/17/18 05:44 Acetylcysteine (Mucomyst) 200 mg Q6HRT HHN 03/23/18 05:15 04/22/18 00:59 03/23/18 13:42 Atenolol (Tenormin) 25 mg DAILY NG 03/23/18 09:00 04/06/18 08:59 03/23/18 08:45 Cefepime HCl 1 gm/ Dextrose 55 ml @ 110 mls/hr DAILY IVPB 03/23/18 09:00 03/25/18 09:29 03/23/18 08:45 Chlorhexidine Gluconate (Sahra-Hex 2%) 1 applic DAILY@2000 TOPIC 03/22/18 20:00 04/13/18 19:59 Dextrose/ Electrolytes 1,000 ml @ 50 mls/hr Q20H IV 03/22/18 17:00 04/09/18 16:59 03/23/18 06:35 Diltiazem HCl 125 mg/Dextrose 125 ml @ 0 mls/hr Q24H IV 03/23/18 15:00 03/24/18 14:59 Gabapentin (Neurontin) 300 mg THREE TIMES A DAY NG 03/22/18 18:00 04/05/18 17:59 03/23/18 13:30 Ipratropium Cash (Atrovent) 500 mcg Q8H PRN HHN Shortness of Breath 03/22/18 16:00 03/27/18 15:59 03/23/18 13:42 Iron Sucrose 100 mg/Sodium Chloride 60 ml @ 240 mls/hr BEDTIME IV 03/22/18 21:00 03/25/18 21:14 03/22/18 21:10 Levalbuterol HCl (Xopenex) 1.25 mg Q8H PRN HHN Shortness of Breath 03/22/18 16:00 03/27/18 15:59 03/23/18 13:42 Metronidazole (Flagyl) 500 mg Q8HR ORAL 03/22/18 22:00 03/26/18 13:59 03/23/18 13:30 Nitroglycerin (Ntg) 0.4 mg Q5M PRN SL Prn Chest Pain 03/22/18 16:15 04/05/18 17:10 Olanzapine (ZyPREXA) 2.5 mg Q6H PRN NG agitation 03/22/18 16:00 04/07/18 15:59 Ondansetron HCl (Zofran) 4 mg Q6H PRN IVP Nausea & Vomiting 03/22/18 16:00 04/05/18 15:59 Polyethylene Glycol (Miralax) 17 gm DAILYPRN PRN NG Constipation 03/22/18 16:00 04/21/18 15:59 Promethazine HCl/ Codeine (Phenergan with Codeine) 5 ml Q4H PRN NG For Cough 03/22/18 17:15 04/05/18 17:11 Sodium Hypochlorite (Dakin's Quarter Strength) 1 applic DAILY TOPIC 03/23/18 09:00 04/13/18 12:29 03/23/18 08:45 Tamsulosin HCl (Flomax) 0.4 mg BEDTIME ORAL 03/22/18 21:00 04/05/18 20:59 03/22/18 21:48 Vancomycin HCl (Vanco rx to dose) 1 ea DAILY PRN MISC Per rx protocol 03/23/18 09:00 04/14/18 10:59 Vancomycin HCl 1 gm/Dextrose 275 ml @ 183.708 mls/hr Q12H IVPB 03/23/18 03:00 03/27/18 14:59 03/23/18 15:10 Allergies: Coded Allergies: No Known Allergies (Unverified , 03/06/18) Subjective 87 YO F admitted with hematuria and gen weakness. Now pyelonephritis and sepsis. Cover for Int Med-Dr Scott. Transfered to ICU for tachycardia and respiratory destress Objective Last Vital Signs Date Time Temp Pulse Resp B/P (MAP) Pulse Ox O2 Delivery O2 Flow Rate FiO2 03/23/18 13:55 130 22 96 Non-Rebreather 15.0 100 03/23/18 12:00 99.1 109/54 (72) Laboratory Tests Test 03/23/18 05:25 03/23/18 07:45 Arterial Blood pH 7.501 (7.350-7.450) Arterial Blood Partial Pressure CO2 36.4 mmHg (35.0-45.0) Arterial Blood Partial Pressure O2 82.3 mmHg (75.0-100.0) Arterial Blood HCO3 27.8 mmol/L (22.0-26.0) H Arterial Blood Oxygen Saturation 96.1 % (95-100) Arterial Blood Base Excess 4.5 (-2-2) H Temo Test Positive White Blood Count 21.1 K/UL (4.8-10.8) #H Red Blood Count 4.00 M/UL (4.20-5.40) L Hemoglobin 12.1 G/DL (12.0-16.0) Hematocrit 37.1 % (37.0-47.0) Mean Corpuscular Volume 93 FL (80-99) Mean Corpuscular Hemoglobin 30.2 PG (27.0-31.0) Mean Corpuscular Hemoglobin Concent 32.5 G/DL (32.0-36.0) Red Cell Distribution Width 14.2 % (11.6-14.8) Platelet Count 410 K/UL (150-450) Mean Platelet Volume 4.7 FL (6.5-10.1) L Neutrophils (%) (Auto) % (45.0-75.0) Lymphocytes (%) (Auto) % (20.0-45.0) Monocytes (%) (Auto) % (1.0-10.0) Eosinophils (%) (Auto) % (0.0-3.0) Basophils (%) (Auto) % (0.0-2.0) Differential Total Cells Counted 100 Neutrophils % (Manual) 88 % (45-75) H Lymphocytes % (Manual) 7 % (20-45) L Monocytes % (Manual) 4 % (1-10) Eosinophils % (Manual) 0 % (0-3) Basophils % (Manual) 0 % (0-2) Band Neutrophils 1 % (0-8) Platelet Estimate Adequate Platelet Morphology Normal Anisocytosis 1+ Sodium Level 137 MMOL/L (136-145) Potassium Level 4.4 MMOL/L (3.5-5.1) Chloride Level 102 MMOL/L (98-107) Carbon Dioxide Level 29 MMOL/L (21-32) Anion Gap 6 mmol/L (5-15) Blood Urea Nitrogen 12 mg/dL (7-18) Creatinine 0.6 MG/DL (0.55-1.30) Estimat Glomerular Filtration Rate mL/min (>60) Glucose Level 168 MG/DL (74-106) H Calcium Level 8.9 MG/DL (8.5-10.1) Microbiology Date/Time Source Procedure Growth Status 03/22/18 15:00 Sputum Induced Gram Stain - Final Resulted 03/22/18 15:00 Sputum Induced Sputum Culture Pending Resulted Intake and Output 03/22/18 03/23/18 19:00 07:00 Intake Total 500 ml 1150 ml Output Total 300 ml 175 ml Balance 200 ml 975 ml IV Total 410 ml 750 ml Tube Feeding 90 ml 400 ml Output Urine Total 300 ml 175 ml Stool Total 0 ml Objective PHYSICAL EXAMINATION: GENERAL: The patient is a well-developed and well-nourished white female, in no apparent distress. HEENT: Eyes, pupils are equal and responsive to light and accommodation. Extraocular movements are intact. NECK: Supple without lymphadenopathy. CHEST: Decreased breath sounds at bilateral bases. Otherwise, clear to auscultation without wheezes or rales. CARDIOVASCULAR: Tachycardic. Regular rate and rhythm. S1, S2 are normal without murmurs, rubs, or gallops. ABDOMEN: Soft, nontender, and nondistended. Positive bowel sounds. No evidence of hepatosplenomegaly. Currently, no rebound or guarding noted. EXTREMITIES: Negative for clubbing, cyanosis, or edema. RECTAL/GENITAL: Deferred. NEUROLOGIC: Cranial nerves II through XII are grossly intact without focal deficits. Assessment/Plan Problem List: (1) Pyelonephritis Assessment & Plan: Pseudamonas and strep. See ID note-Continue cefepime and vanco (2) Sepsis (3) HTN (hypertension) Assessment & Plan: Currently hypotensive (4) Hypercholesteremia (5) Sacral decubitus ulcer, stage IV Assessment & Plan: See surgery note-dr Ramsay (6) Urinary tract infection Assessment & Plan: pseudamonas; continue cefepime per ID (7) Pneumonia Assessment & Plan: New RLL. Previously MRSA. Continue vanco per ID (8) Atrial fibrillation with RVR Assessment & Plan: Transfer to ICU. Now paroxsymal atrial fib with RVR-see cardiology note. (9) Respiratory distress Assessment & Plan: On non rebreather mask Shankar Betts MD Mar 23, 2018 15:45
--- NOTE | 2018-03-23 15:45 | Cardiac Electrophysiology PN ---
Assessment/Plan Status Narrative Technically difficult study due to patient was contracted. Study quality precludes accurate assessment of regional wall motion. Normal left ventricular chamber size, systolic function and wall motion. Left ventricular ejection fraction estimated to be 60-65 %. Mild left ventricular hypertrophy. Small circumferential pericardial effusion. Mild left atrial enlargement. Right cardiac chamber sizes are within normal limits. Aortic valve calcification with decreased cusp excursion c/w aortic stenosis. Mildly thickened mitral valve leaflets with normal excursion. Moderate mitral annulus and aortic root calcification. Normal pulmonic valve structure. Normal tricuspid valve structure. Subcostal views not obtainable due to G tube. Assessment/Plan 1. Atrial fibrillation with rapid ventricular response. Now in multifocal atrial tach. Increase Atenolol to 25 mg bid. Echo EF 65% Transfer to ICU and start Cardizem drip. Already got 10 mg iv cardizem. 2. Urosepsis. On IV antibiotic per ID. 3. Hypertension, on atenolol. 4. Sacral decubitus ulcer. 5. Dementia. 6. Dysphagia. S/P G-tube placement 03/21/17 KEIRY RN Subjective Subjective Transferred to [facility] for tachy in 140s. Had PEG placement Objective Last 24 Hour Vital Signs Date Time Temp Pulse Resp B/P (MAP) Pulse Ox O2 Delivery O2 Flow Rate FiO2 03/23/18 13:55 130 22 96 Non-Rebreather 15.0 100 03/23/18 13:42 125 24 95 Non-Rebreather 15.0 100 03/23/18 12:00 99.1 105 30 109/54 (72) 99 03/23/18 12:00 105 03/23/18 09:00 128 03/23/18 09:00 Non-Rebreather 15.0 03/23/18 08:45 133 121/64 03/23/18 08:44 133 121/64 03/23/18 08:05 84 Nasal Cannula 2.0 28 03/23/18 08:05 Nasal Cannula 2.0 28 03/23/18 08:00 98.9 133 28 121/64 (83) 94 03/23/18 05:33 117 24 91 Non-Rebreather 15.0 100 03/23/18 05:33 117 24 91 Non-Rebreather 15.0 100 03/23/18 04:00 114 03/23/18 04:00 98.4 114 24 115/91 (99) 90 03/23/18 00:00 99.0 108 24 94/61 (72) 90 03/23/18 00:00 108 03/22/18 21:00 Non-Rebreather 15.0 03/22/18 20:24 121 24 96 Non-Rebreather 15.0 100 03/22/18 20:21 Nasal Cannula 2.0 28 03/22/18 20:21 83 Nasal Cannula 2.0 28 03/22/18 20:21 121 24 83 Nasal Cannula 2.0 28 03/22/18 20:00 98.2 125 24 119/61 (80) 90 03/22/18 20:00 125 03/22/18 15:47 140 117/61 (79) Intake and Output 03/22/18 03/23/18 19:00 07:00 Intake Total 500 ml 1150 ml Output Total 300 ml 175 ml Balance 200 ml 975 ml IV Total 410 ml 750 ml Tube Feeding 90 ml 400 ml Output Urine Total 300 ml 175 ml Stool Total 0 ml Laboratory Tests Test 03/23/18 05:25 03/23/18 07:45 Arterial Blood pH 7.501 (7.350-7.450) Arterial Blood Partial Pressure CO2 36.4 mmHg (35.0-45.0) Arterial Blood Partial Pressure O2 82.3 mmHg (75.0-100.0) Arterial Blood HCO3 27.8 mmol/L (22.0-26.0) H Arterial Blood Oxygen Saturation 96.1 % (95-100) Arterial Blood Base Excess 4.5 (-2-2) H Temo Test Positive White Blood Count 21.1 K/UL (4.8-10.8) #H Red Blood Count 4.00 M/UL (4.20-5.40) L Hemoglobin 12.1 G/DL (12.0-16.0) Hematocrit 37.1 % (37.0-47.0) Mean Corpuscular Volume 93 FL (80-99) Mean Corpuscular Hemoglobin 30.2 PG (27.0-31.0) Mean Corpuscular Hemoglobin Concent 32.5 G/DL (32.0-36.0) Red Cell Distribution Width 14.2 % (11.6-14.8) Platelet Count 410 K/UL (150-450) Mean Platelet Volume 4.7 FL (6.5-10.1) L Neutrophils (%) (Auto) % (45.0-75.0) Lymphocytes (%) (Auto) % (20.0-45.0) Monocytes (%) (Auto) % (1.0-10.0) Eosinophils (%) (Auto) % (0.0-3.0) Basophils (%) (Auto) % (0.0-2.0) Differential Total Cells Counted 100 Neutrophils % (Manual) 88 % (45-75) H Lymphocytes % (Manual) 7 % (20-45) L Monocytes % (Manual) 4 % (1-10) Eosinophils % (Manual) 0 % (0-3) Basophils % (Manual) 0 % (0-2) Band Neutrophils 1 % (0-8) Platelet Estimate Adequate Platelet Morphology Normal Anisocytosis 1+ Sodium Level 137 MMOL/L (136-145) Potassium Level 4.4 MMOL/L (3.5-5.1) Chloride Level 102 MMOL/L (98-107) Carbon Dioxide Level 29 MMOL/L (21-32) Anion Gap 6 mmol/L (5-15) Blood Urea Nitrogen 12 mg/dL (7-18) Creatinine 0.6 MG/DL (0.55-1.30) Estimat Glomerular Filtration Rate mL/min (>60) Glucose Level 168 MG/DL (74-106) H Calcium Level 8.9 MG/DL (8.5-10.1) Microbiology Date/Time Source Procedure Growth Status 03/22/18 15:00 Sputum Induced Gram Stain - Final Resulted 03/22/18 15:00 Sputum Induced Sputum Culture Pending Resulted Objective HEAD AND NECK: No JVD. LUNGS: Coarse rhonchi. CARDIOVASCULAR: Irregular tachy S1 and S2 with no gallop. ABDOMEN: Status post colostomy. GT in place EXTREMITIES: No pitting edema Fredrick Burk MD Mar 23, 2018 15:45
[2018-03-23] MEDS ORDERED: Levalbuterol Inh UD 1.25mg/0.5ml HHN PRN (16:00)
[2018-03-23] MEDS ORDERED: OLANZapine 2.5mg tab NG PRN (16:00)
[2018-03-23] MEDS ORDERED: Miralax 17gm pkt NG PRN (16:00)
[2018-03-23] MEDS ORDERED: Ipratropium 0.02% Inh Soln 2.5ml UD HHN PRN (16:00)
[2018-03-23] MEDS ORDERED: Nitroglycerin Subl 0.4mg tab SL PRN (16:35)
[2018-03-23] MEDS ORDERED: Promethazine/Codeine 5ml UD NG PRN (17:15)
[2018-03-23] MEDS ORDERED: Acetaminophen 650mg/20.3ml NG PRN (17:45)
[2018-03-23] MEDS: Atenolol 25mg tab NG SCH (17:51)
[2018-03-23] MEDS: Amiodarone 900 MG in D5W 500ml 482 ML IV SCH (18:33)
--- NOTE | 2018-03-23 19:34 | Operative Note - PDOC ---
Operative Note Operative Note Date of Operation/Procedure: Mar 23, 2018 Pre-op Diagnosis: sepsis, hypotension, critical care Procedure: left internal jugular central venous catheter insertion Post-op Diagnosis: same as pre-op Surgeon: kathleen Anesthesia: local Specimen: none Complications: none Condition: unstable Estimated Blood Loss: minimal Drains: none Implant(s) used?: No Indications for Procedure 87F will known to me during admission. today became my hypotensive and unresponsive requiring ICU care. Hypotensive on multiple meds and needs fluids / possible pressors. currently only 24g peripheral access and very difficult peripheral access. needs central venous access. consent obtained. procedure performed in ICU Description of Procedure all precautions taken. ultrasound used to evaluation bilateral IJ. left neck prepped and draped in standard surgical fashion. using ultrasound guidance the left IJ was cannulated with needle. guidewire passed and needle removed. skin incision made and dilator used. triple lumen catheter inserted and guidewire discarded. all ports flushed and aspirated. line sutured in place and dressings applied. CXR obtained and line in good position. Derick Ramsay Mar 23, 2018 19:34
[2018-03-23] MEDS ORDERED: Dyna-Hex 2% Top Sol 2oz TOPIC SCH (20:00)
[2018-03-23] MEDS: Dyna-Hex 2% Top Sol 2oz TOPIC SCH (20:51)
[2018-03-23] MEDS: Iron Sucrose 100 MG in NS 55 ML IV SCH (20:52)
[2018-03-23] MEDS: Tamsulosin 0.4mg cap ORAL SCH (20:53)
[2018-03-24] VITALS (46 sets, daily range): BP systolic 90–164; BP diastolic 45–99
[2018-03-24] MEDS: Levalbuterol Inh UD 1.25mg/0.5ml HHN PRN (00:47)
[2018-03-24] MEDS: Ipratropium 0.02% Inh Soln 2.5ml UD HHN PRN ×3 (00:47→13:00)
[2018-03-24] MEDS: Acetylcysteine 20% Soln 4ml HHN SCH ×4 (00:50→19:00)
[2018-03-24] MEDS: Vancomycin 1 GM in D5W 275 ML IVPB SCH ×2 (04:21→14:19)
[2018-03-24 05:42] LABS: HEMATOCRIT 26.7 % (37.0-47.0); HEMOGLOBIN 8.8 G/DL (12.0-16.0); MEAN CORPUSCULAR VOLUME 93 FL (80-99); PLATELET COUNT 351 K/UL (150-450); RED BLOOD COUNT 2.87 M/UL (4.20-5.40); RED CELL DISTRIBUTION WIDTH 14.3 % (11.6-14.8); WHITE BLOOD COUNT 21.1 K/UL (4.8-10.8)
[2018-03-24 05:50] LABS: ANION GAP 4 mmol/L (5-15); BLOOD UREA NITROGEN 11 mg/dL (7-18); CALCIUM 8.3 MG/DL (8.5-10.1); CARBON DIOXIDE 31 MMOL/L (21-32); CHLORIDE 103 MMOL/L (98-107); CREATININE 0.5 MG/DL (0.55-1.30); POTASSIUM 3.8 MMOL/L (3.5-5.1); SODIUM 138 MMOL/L (136-145)
[2018-03-24] MEDS: metroNIDAZOLE 500mg tab ORAL SCH ×3 (06:01→21:52)
[2018-03-24] MEDS: D5 1/2NS w/KCL 10meq 1,000 ML IV SCH (06:27)
[2018-03-24] MEDS: Cefepime HCl 1 GM in D5W 55 ML IVPB SCH (08:20)
[2018-03-24] MEDS: Atenolol 25mg tab NG SCH ×2 (08:22→18:19)
[2018-03-24] MEDS: Dakin's 0.125% Soln (Quarter Strength) 16oz TOPIC SCH (08:22)
[2018-03-24] MEDS ORDERED: NS 500ML ONE (09:19)
[2018-03-24] MEDS ORDERED: NS 275ml ONE (09:19)
[2018-03-24] MEDS ORDERED: D5NS 1000ml IV ONE (09:19)
--- NOTE | 2018-03-24 10:17 | Pulmonolgy Critical Care Note ---
Critical Care - Asmt/Plan Problems: (1) Respiratory distress (2) Pneumonia (3) Sacral decubitus ulcer, stage IV (4) Protein-calorie malnutrition, severe (5) At high risk for aspiration Respiratory: monitor respiratory rate, adjust FIO2, CXR Cardiac: continue to monitor HR/BP Renal: F/U I&O, keep IV fluid Infectious Disease: check cultures Gastrointestinal: continue feedings/current rate Endocrine: monitor blood sugar Hematologic: monitor H/H, transfuse if hgb<8.5 Neurologic: PRN Ativan, keep patient comfortable Affect: PRN ativan Disposition: keep in ICU Time Spent (Minutes): 40 Notes Reviewed: 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 with: nurses, consultants, 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 - Objective Last 24 Hour Vital Signs Date Time Temp Pulse Resp B/P (MAP) Pulse Ox O2 Delivery O2 Flow Rate FiO2 03/24/18 08:30 98.3 90 19 107/61 (76) 93 03/24/18 08:22 89 107/61 03/24/18 07:14 91 23 93 Venturi Mask 14.0 55 03/24/18 07:00 97.4 86 26 101/58 (72) 96 03/24/18 06:55 Venturi Mask 14.0 55 03/24/18 06:55 93 Venturi Mask 14.0 55 03/24/18 06:55 87 21 93 Venturi Mask 14.0 55 03/24/18 06:00 87 26 108/66 (80) 96 03/24/18 06:00 120/65 03/24/18 05:30 126/70 03/24/18 05:00 123/71 03/24/18 05:00 81 26 123/71 (88) 96 03/24/18 04:30 83 26 116/59 (78) 96 03/24/18 04:00 74 03/24/18 04:00 119/68 03/24/18 04:00 Non-Rebreather 15.0 03/24/18 04:00 83 26 119/68 (85) 94 03/24/18 03:30 81 23 116/47 (70) 95 03/24/18 03:00 82 24 114/62 (79) 95 03/24/18 03:00 114/62 03/24/18 02:30 71 17 118/54 (75) 95 03/24/18 02:00 97.4 95 19 118/54 (75) 95 03/24/18 02:00 118/54 03/24/18 01:30 90 19 109/62 (78) 95 03/24/18 01:30 100 19 107/51 (69) 95 03/24/18 01:00 95 19 90/53 (65) 95 03/24/18 01:00 109/62 03/24/18 00:58 106 24 100 Venturi Mask 14.0 55 03/24/18 00:50 102 24 96 Venturi Mask 14.0 55 03/24/18 00:30 96 20 103/52 (69) 96 03/24/18 00:00 Non-Rebreather 15.0 03/24/18 00:00 90 18 114/56 (75) 96 03/24/18 00:00 114/56 03/23/18 23:52 82/47 03/23/18 23:30 87 18 111/60 (77) 96 03/23/18 23:00 103/52 03/23/18 23:00 91 19 103/52 (69) 98 03/23/18 22:30 92 19 95/51 (66) 97 03/23/18 22:00 98/47 03/23/18 22:00 92 18 98/47 (64) 94 03/23/18 21:45 94 18 103/58 (73) 94 03/23/18 21:30 90 18 102/50 (67) 94 03/23/18 21:15 92 18 98/52 (67) 94 03/23/18 21:00 93/54 03/23/18 21:00 95 18 93/54 (67) 94 03/23/18 20:45 93 18 97/45 (62) 92 03/23/18 20:30 94 19 97/47 (64) 93 03/23/18 20:15 92 18 97/55 (69) 95 03/23/18 20:00 106 03/23/18 20:00 Non-Rebreather 15.0 03/23/18 20:00 95/52 03/23/18 20:00 90 18 95/52 (66) 94 03/23/18 19:45 95 20 80/36 (51) 94 03/23/18 19:30 81/38 03/23/18 19:30 93 19 81/38 (52) 94 03/23/18 19:15 97 20 82/35 (51) 96 03/23/18 19:15 82/35 03/23/18 19:13 94 22 93 Venturi Mask 14.0 55 03/23/18 19:12 Venturi Mask 14.0 55 03/23/18 19:01 Non-Rebreather 15.0 100 03/23/18 19:01 100 Non-Rebreather 15.0 100 03/23/18 19:00 104 21 81/38 (52) 95 03/23/18 19:00 81/38 03/23/18 19:00 100 24 95 Non-Rebreather 15.0 100 03/23/18 18:45 107 21 77/31 (46) 96 03/23/18 18:33 67/39 03/23/18 18:30 112 20 67/39 (48) 100 03/23/18 18:15 115 23 77/36 (50) 100 03/23/18 18:00 113 24 61/32 (42) 100 03/23/18 17:51 137 64/28 03/23/18 17:45 111 19 56/31 (39) 97 03/23/18 17:30 98.8 115 20 58/25 (36) 96 03/23/18 17:27 98.9 03/23/18 17:00 137 24 75/38 (50) 100 03/23/18 16:45 140 25 79/52 (61) 97 03/23/18 16:30 142 26 56/16 (29) 97 03/23/18 16:15 100.6 143 28 78/37 (51) 91 03/23/18 16:10 158 03/23/18 16:00 Non-Rebreather 15.0 03/23/18 16:00 142 88/48 03/23/18 16:00 99.1 142 26 62/49 (53) 97 03/23/18 15:50 145 24 88/48 (61) 88 03/23/18 13:55 130 22 96 Non-Rebreather 15.0 100 03/23/18 13:42 125 24 95 Non-Rebreather 15.0 100 03/23/18 12:00 99.1 105 30 109/54 (72) 99 03/23/18 12:00 105 Status: awake, sedated HEENT: atraumatic Lungs: rales, rhonchi Heart: HR/BP stable Abdomen: soft, non-tender Extremities: no C/C/E, edema Decubiti: stage Micro: Microbiology Date/Time Source Procedure Growth Status 03/22/18 15:00 Sputum Induced Gram Stain - Final Resulted 03/22/18 15:00 Sputum Induced Sputum Culture Pending Resulted Accucheck: 111 Critical Care - Subjective ROS Limited/Unobtainable: Yes Interval Events: transferred to ICU b/o SOB and desaturation on BIPAP now FI02: 55 Sputum Amount: None Tube Feeding Amount: 45 I&O: Intake and Output 03/23/18 03/24/18 19:00 07:00 Intake Total 670.83 ml 2109.730 ml Output Total 165 ml 480 ml Balance 505.83 ml 1629.730 ml IV Total 670.83 ml 1704.730 ml Tube Feeding 405 ml Output Urine Total 165 ml 480 ml CXR: increasing right effusion, Labs: Laboratory Tests Test 03/23/18 20:00 03/24/18 02:10 03/24/18 05:00 Lactic Acid Level 1.30 mmol/L (0.4-2.0) Vancomycin Level Trough 16.4 ug/mL (5.0-12.0) H White Blood Count 21.1 K/UL (4.8-10.8) H Red Blood Count 2.87 M/UL (4.20-5.40) L Hemoglobin 8.8 G/DL (12.0-16.0) L Hematocrit 26.7 % (37.0-47.0) L Mean Corpuscular Volume 93 FL (80-99) Mean Corpuscular Hemoglobin 30.8 PG (27.0-31.0) Mean Corpuscular Hemoglobin Concent 33.0 G/DL (32.0-36.0) Red Cell Distribution Width 14.3 % (11.6-14.8) Platelet Count 351 K/UL (150-450) Mean Platelet Volume 4.8 FL (6.5-10.1) L Neutrophils (%) (Auto) % (45.0-75.0) Lymphocytes (%) (Auto) % (20.0-45.0) Monocytes (%) (Auto) % (1.0-10.0) Eosinophils (%) (Auto) % (0.0-3.0) Basophils (%) (Auto) % (0.0-2.0) Differential Total Cells Counted 100 Neutrophils % (Manual) 90 % (45-75) H Lymphocytes % (Manual) 5 % (20-45) L Monocytes % (Manual) 5 % (1-10) Eosinophils % (Manual) 0 % (0-3) Basophils % (Manual) 0 % (0-2) Band Neutrophils 0 % (0-8) Platelet Estimate Adequate Platelet Morphology Normal Hypochromasia 1+ Anisocytosis 1+ Sodium Level 138 MMOL/L (136-145) Potassium Level 3.8 MMOL/L (3.5-5.1) Chloride Level 103 MMOL/L (98-107) Carbon Dioxide Level 31 MMOL/L (21-32) Anion Gap 4 mmol/L (5-15) L Blood Urea Nitrogen 11 mg/dL (7-18) Creatinine 0.5 MG/DL (0.55-1.30) L Estimat Glomerular Filtration Rate mL/min (>60) Glucose Level 211 MG/DL (74-106) H Calcium Level 8.3 MG/DL (8.5-10.1) L Troponin I 0.024 ng/mL (0.000-0.056) Rishi Gutierrez MD Mar 24, 2018 10:17
--- NOTE | 2018-03-24 11:13 | Diagnostic Imaging Report ---
Indication: Status post central line placement Technique: One view of the chest Comparison: 9 hours earlier Findings: Interim placement left jugular central venous catheter, tip of which projects at the level of the cavoatrial junction. Interim development of a small right pneumothorax, 10-15%. No left pneumothorax demonstrated There is persistent right pleural effusion. There is persistent retrocardiac consolidation. Impression: Left jugular central venous catheter in good position. Small right pneumothorax, 10-15%. Correlate with any history of attempted right jugular or subclavian venous punctures. No evidence of left pneumothorax. This represents a discrepancy from the [facility] preliminary report. Discrepant findings phoned to Dr. Gutierrez at the time of interpretation, and [facility] was notified via their website Persistent pleural and parenchymal disease, as described, unchanged
--- NOTE | 2018-03-24 11:25 | Infectious Diseases Prog Note ---
Assessment/Plan Assessment/Plan Sepsis, resolved 2ry to UTI c/w bacteremia and prob early PNA -u/a wbc tntc, nit neg, luek +3; ucx >100k PsA (R cipro/levo, otherwise S), E. fecalis (S Amp, vanco) -03/06 Bcx 4/ P.mirabiis (R cipro, I Levo; otherwise S), 03/21 MRSE ( contaminant); 03/07 Neg Probable Pneum : -CXR: Subtle patchy opacities in the right upper lung raising question for developing pneumonia. Clinical correlation/follow-up recommended. -influenza sc neg -sp cx MRSA, C. albicans (Colonizer) 03/19/17 - CT C/A/P - Bilateral basilar pneumonia versus atelectasis. Small to moderate left pleural effusion and a small right pleural effusion noted. 03/19/18 UCx - Yeast 03/23/18 CXR - B/L consolidation R>L Low grade fever, SP Leukocytosis - FTT HTN Afib dysphagia HLD Dementia contractures Plan: - Continue flagyl #6, IV Vanco d# 8 and Cefepime # 20 for PNA (Asp PNA?) -03/13 SP IV Vancomycin #7 -03/06 SP Meropenem x1 - f/u Sputum Cx -Monitor CBC/CMP, temperatures -aspiration precautions Subjective Allergies: Coded Allergies: No Known Allergies (Unverified , 03/06/18) Subjective Patient sent to ICU for respiratory distress no on Ventimask New PNA on CXR Afebrile but WBCs 21 Objective Vital Signs Last 24 Hour Vital Signs Date Time Temp Pulse Resp B/P (MAP) Pulse Ox O2 Delivery O2 Flow Rate FiO2 03/24/18 08:30 98.3 90 19 107/61 (76) 93 03/24/18 08:22 89 107/61 03/24/18 07:14 91 23 93 Venturi Mask 14.0 55 03/24/18 07:00 97.4 86 26 101/58 (72) 96 03/24/18 06:55 Venturi Mask 14.0 55 03/24/18 06:55 93 Venturi Mask 14.0 55 03/24/18 06:55 87 21 93 Venturi Mask 14.0 55 03/24/18 06:00 87 26 108/66 (80) 96 03/24/18 06:00 120/65 03/24/18 05:30 126/70 03/24/18 05:00 123/71 03/24/18 05:00 81 26 123/71 (88) 96 03/24/18 04:30 83 26 116/59 (78) 96 03/24/18 04:00 74 03/24/18 04:00 119/68 03/24/18 04:00 Non-Rebreather 15.0 03/24/18 04:00 83 26 119/68 (85) 94 03/24/18 03:30 81 23 116/47 (70) 95 03/24/18 03:00 82 24 114/62 (79) 95 03/24/18 03:00 114/62 03/24/18 02:30 71 17 118/54 (75) 95 03/24/18 02:00 97.4 95 19 118/54 (75) 95 03/24/18 02:00 118/54 03/24/18 01:30 90 19 109/62 (78) 95 03/24/18 01:30 100 19 107/51 (69) 95 03/24/18 01:00 95 19 90/53 (65) 95 03/24/18 01:00 109/62 03/24/18 00:58 106 24 100 Venturi Mask 14.0 55 03/24/18 00:50 102 24 96 Venturi Mask 14.0 55 03/24/18 00:30 96 20 103/52 (69) 96 03/24/18 00:00 Non-Rebreather 15.0 03/24/18 00:00 90 18 114/56 (75) 96 03/24/18 00:00 114/56 03/23/18 23:52 82/47 03/23/18 23:30 87 18 111/60 (77) 96 03/23/18 23:00 103/52 03/23/18 23:00 91 19 103/52 (69) 98 03/23/18 22:30 92 19 95/51 (66) 97 03/23/18 22:00 98/47 03/23/18 22:00 92 18 98/47 (64) 94 03/23/18 21:45 94 18 103/58 (73) 94 03/23/18 21:30 90 18 102/50 (67) 94 03/23/18 21:15 92 18 98/52 (67) 94 03/23/18 21:00 93/54 03/23/18 21:00 95 18 93/54 (67) 94 03/23/18 20:45 93 18 97/45 (62) 92 03/23/18 20:30 94 19 97/47 (64) 93 03/23/18 20:15 92 18 97/55 (69) 95 03/23/18 20:00 106 03/23/18 20:00 Non-Rebreather 15.0 03/23/18 20:00 95/52 03/23/18 20:00 90 18 95/52 (66) 94 03/23/18 19:45 95 20 80/36 (51) 94 03/23/18 19:30 81/38 03/23/18 19:30 93 19 81/38 (52) 94 03/23/18 19:15 97 20 82/35 (51) 96 03/23/18 19:15 82/35 03/23/18 19:13 94 22 93 Venturi Mask 14.0 55 03/23/18 19:12 Venturi Mask 14.0 55 03/23/18 19:01 Non-Rebreather 15.0 100 03/23/18 19:01 100 Non-Rebreather 15.0 100 03/23/18 19:00 104 21 81/38 (52) 95 03/23/18 19:00 81/38 03/23/18 19:00 100 24 95 Non-Rebreather 15.0 100 03/23/18 18:45 107 21 77/31 (46) 96 03/23/18 18:33 67/39 03/23/18 18:30 112 20 67/39 (48) 100 03/23/18 18:15 115 23 77/36 (50) 100 03/23/18 18:00 113 24 61/32 (42) 100 03/23/18 17:51 137 64/28 03/23/18 17:45 111 19 56/31 (39) 97 03/23/18 17:30 98.8 115 20 58/25 (36) 96 03/23/18 17:27 98.9 03/23/18 17:00 137 24 75/38 (50) 100 03/23/18 16:45 140 25 79/52 (61) 97 03/23/18 16:30 142 26 56/16 (29) 97 03/23/18 16:15 100.6 143 28 78/37 (51) 91 03/23/18 16:10 158 03/23/18 16:00 Non-Rebreather 15.0 03/23/18 16:00 142 88/48 03/23/18 16:00 99.1 142 26 62/49 (53) 97 03/23/18 15:50 145 24 88/48 (61) 88 03/23/18 13:55 130 22 96 Non-Rebreather 15.0 100 03/23/18 13:42 125 24 95 Non-Rebreather 15.0 100 03/23/18 12:00 99.1 105 30 109/54 (72) 99 03/23/18 12:00 105 Height (Feet): 5 Height (Inches): 3.00 Weight (Pounds): 145 Objective General: NAD HEENT: NCAT, MMM Respiratory: Course B/L Cardiovascular : tachycardia, systolic murmur, irregularly irregular Gastrointestinal: soft, non-distended, colostomy bag in place and PEG Neurologic: alert, non-verbal Microbiology Date/Time Source Procedure Growth Status 03/22/18 15:00 Sputum Induced Gram Stain - Final Resulted 03/22/18 15:00 Sputum Induced Sputum Culture Pending Resulted Laboratory Tests Test 03/23/18 20:00 03/24/18 02:10 03/24/18 05:00 Lactic Acid Level 1.30 mmol/L (0.4-2.0) Vancomycin Level Trough 16.4 ug/mL (5.0-12.0) H White Blood Count 21.1 K/UL (4.8-10.8) H Red Blood Count 2.87 M/UL (4.20-5.40) L Hemoglobin 8.8 G/DL (12.0-16.0) L Hematocrit 26.7 % (37.0-47.0) L Mean Corpuscular Volume 93 FL (80-99) Mean Corpuscular Hemoglobin 30.8 PG (27.0-31.0) Mean Corpuscular Hemoglobin Concent 33.0 G/DL (32.0-36.0) Red Cell Distribution Width 14.3 % (11.6-14.8) Platelet Count 351 K/UL (150-450) Mean Platelet Volume 4.8 FL (6.5-10.1) L Neutrophils (%) (Auto) % (45.0-75.0) Lymphocytes (%) (Auto) % (20.0-45.0) Monocytes (%) (Auto) % (1.0-10.0) Eosinophils (%) (Auto) % (0.0-3.0) Basophils (%) (Auto) % (0.0-2.0) Differential Total Cells Counted 100 Neutrophils % (Manual) 90 % (45-75) H Lymphocytes % (Manual) 5 % (20-45) L Monocytes % (Manual) 5 % (1-10) Eosinophils % (Manual) 0 % (0-3) Basophils % (Manual) 0 % (0-2) Band Neutrophils 0 % (0-8) Platelet Estimate Adequate Platelet Morphology Normal Hypochromasia 1+ Anisocytosis 1+ Sodium Level 138 MMOL/L (136-145) Potassium Level 3.8 MMOL/L (3.5-5.1) Chloride Level 103 MMOL/L (98-107) Carbon Dioxide Level 31 MMOL/L (21-32) Anion Gap 4 mmol/L (5-15) L Blood Urea Nitrogen 11 mg/dL (7-18) Creatinine 0.5 MG/DL (0.55-1.30) L Estimat Glomerular Filtration Rate mL/min (>60) Glucose Level 211 MG/DL (74-106) H Calcium Level 8.3 MG/DL (8.5-10.1) L Troponin I 0.024 ng/mL (0.000-0.056) Current Medications Medications (Trade) Dose Ordered Sig/Cele Route PRN Reason Start Time Stop Time Status Last Admin Dose Admin Acetaminophen (Tylenol) 650 mg Q4H PRN NG fever (temp>100.5F) 03/23/18 17:45 04/17/18 05:44 03/23/18 16:57 Acetylcysteine (Mucomyst) 200 mg Q6HRT HHN 03/23/18 19:00 04/22/18 00:59 03/24/18 06:54 Amiodarone HCl 900 mg/Dextrose 500 ml @ 0 mls/hr Q24H IV 03/23/18 18:30 03/24/18 18:29 03/23/18 18:33 Atenolol (Tenormin) 25 mg BID NG 03/23/18 18:00 04/06/18 08:59 03/24/18 08:22 Cefepime HCl 1 gm/ Dextrose 55 ml @ 110 mls/hr DAILY IVPB 03/24/18 09:00 03/25/18 09:29 03/24/18 08:20 Chlorhexidine Gluconate (Sahra-Hex 2%) 1 applic DAILY@2000 TOPIC 03/23/18 20:00 04/13/18 19:59 03/23/18 20:51 Dextrose/ Electrolytes 1,000 ml @ 50 mls/hr Q20H IV 03/23/18 17:30 04/09/18 17:29 03/24/18 06:27 Gabapentin (Neurontin) 300 mg THREE TIMES A DAY NG 03/23/18 18:00 04/05/18 17:59 03/24/18 08:20 Ipratropium [place] (Atrovent) 500 mcg Q4H PRN HHN Shortness of Breath 03/23/18 19:00 03/28/18 18:59 03/24/18 06:55 Iron Sucrose 100 mg/Sodium Chloride 60 ml @ 240 mls/hr BEDTIME IV 03/23/18 21:00 03/25/18 21:14 03/23/18 20:52 Levalbuterol HCl (Xopenex) 1.25 mg Q4H PRN HHN Shortness of Breath 03/23/18 19:00 03/28/18 18:59 03/24/18 00:47 Metronidazole (Flagyl) 500 mg Q8HR ORAL 03/23/18 22:00 03/26/18 13:59 03/24/18 06:01 Nitroglycerin (Ntg) 0.4 mg Q5M PRN SL Prn Chest Pain 03/23/18 16:35 04/05/18 17:10 Norepinephrine Bitartrate 4 mg/ Dextrose 250 ml @ 0 mls/hr Q24H IV 03/23/18 18:30 04/22/18 18:29 03/23/18 23:52 Olanzapine (ZyPREXA) 2.5 mg Q6H PRN NG agitation 03/23/18 16:00 04/07/18 15:59 Ondansetron HCl (Zofran) 4 mg Q6H PRN IVP Nausea & Vomiting 03/23/18 16:00 04/05/18 15:59 Polyethylene Glycol (Miralax) 17 gm DAILYPRN PRN NG Constipation 03/23/18 16:00 04/22/18 15:59 Promethazine HCl/ Codeine (Phenergan with Codeine) 5 ml Q4H PRN NG For Cough 03/23/18 17:15 04/05/18 17:11 Sodium Hypochlorite (Dakin's Quarter Strength) 1 applic DAILY TOPIC 03/24/18 09:00 04/13/18 12:29 03/24/18 08:22 Tamsulosin HCl (Flomax) 0.4 mg BEDTIME ORAL 03/23/18 21:00 04/05/18 20:59 03/23/18 20:53 Vancomycin HCl (Vanco rx to dose) 1 ea DAILY PRN MISC Per rx protocol 03/24/18 09:00 04/14/18 10:59 Vancomycin HCl 1 gm/Dextrose 275 ml @ 183.708 mls/hr Q12H IVPB 03/24/18 03:00 03/27/18 14:59 03/24/18 04:21 Pacheco Umana MD Mar 24, 2018 11:25
--- NOTE | 2018-03-24 12:29 | GI Progress Note ---
Assessment/Plan Problems: (1) Encounter for PEG (percutaneous endoscopic gastrostomy) ICD Codes: Z43.1 - Encounter for attention to gastrostomy SNOMED: 180177952, 134808431 (2) At high risk for aspiration ICD Codes: Z91.89 - Other specified personal risk factors, not elsewhere classified SNOMED: 480260044 (3) Protein-calorie malnutrition, severe ICD Codes: E43 - Unspecified severe protein-calorie malnutrition SNOMED: 175726865 (4) Dysphasia ICD Codes: R47.02 - Dysphasia SNOMED: 61817647 Status: unchanged Status Narrative Discussed with Dr. Velez. Assessment/Plan s/p GT placement GTF and care fu labs mild respiratory distress now on o2 mask fu pulm The patient was seen and examined at bedside and all new and available data was reviewed in the patients chart. I agree with the above findings, impression and plan. (Patient seen earlier today. Signature stamp does not reflect patient encounter time.). - Ernesto Velez MD Subjective Subjective Limited Objective Last 24 Hour Vital Signs Date Time Temp Pulse Resp B/P (MAP) Pulse Ox O2 Delivery O2 Flow Rate FiO2 03/24/18 08:30 98.3 90 19 107/61 (76) 93 03/24/18 08:22 89 107/61 03/24/18 07:14 91 23 93 Venturi Mask 14.0 55 03/24/18 07:00 97.4 86 26 101/58 (72) 96 03/24/18 06:55 Venturi Mask 14.0 55 03/24/18 06:55 93 Venturi Mask 14.0 55 03/24/18 06:55 87 21 93 Venturi Mask 14.0 55 03/24/18 06:00 87 26 108/66 (80) 96 03/24/18 06:00 120/65 03/24/18 05:30 126/70 03/24/18 05:00 123/71 03/24/18 05:00 81 26 123/71 (88) 96 03/24/18 04:30 83 26 116/59 (78) 96 03/24/18 04:00 74 03/24/18 04:00 119/68 03/24/18 04:00 Non-Rebreather 15.0 03/24/18 04:00 83 26 119/68 (85) 94 03/24/18 03:30 81 23 116/47 (70) 95 03/24/18 03:00 82 24 114/62 (79) 95 03/24/18 03:00 114/62 03/24/18 02:30 71 17 118/54 (75) 95 03/24/18 02:00 97.4 95 19 118/54 (75) 95 03/24/18 02:00 118/54 03/24/18 01:30 90 19 109/62 (78) 95 03/24/18 01:30 100 19 107/51 (69) 95 03/24/18 01:00 95 19 90/53 (65) 95 03/24/18 01:00 109/62 03/24/18 00:58 106 24 100 Venturi Mask 14.0 55 03/24/18 00:50 102 24 96 Venturi Mask 14.0 55 03/24/18 00:30 96 20 103/52 (69) 96 03/24/18 00:00 Non-Rebreather 15.0 03/24/18 00:00 90 18 114/56 (75) 96 03/24/18 00:00 114/56 03/23/18 23:52 82/47 03/23/18 23:30 87 18 111/60 (77) 96 03/23/18 23:00 103/52 03/23/18 23:00 91 19 103/52 (69) 98 03/23/18 22:30 92 19 95/51 (66) 97 03/23/18 22:00 98/47 03/23/18 22:00 92 18 98/47 (64) 94 03/23/18 21:45 94 18 103/58 (73) 94 03/23/18 21:30 90 18 102/50 (67) 94 03/23/18 21:15 92 18 98/52 (67) 94 03/23/18 21:00 93/54 03/23/18 21:00 95 18 93/54 (67) 94 03/23/18 20:45 93 18 97/45 (62) 92 03/23/18 20:30 94 19 97/47 (64) 93 03/23/18 20:15 92 18 97/55 (69) 95 03/23/18 20:00 106 03/23/18 20:00 Non-Rebreather 15.0 03/23/18 20:00 95/52 03/23/18 20:00 90 18 95/52 (66) 94 03/23/18 19:45 95 20 80/36 (51) 94 03/23/18 19:30 81/38 03/23/18 19:30 93 19 81/38 (52) 94 03/23/18 19:15 97 20 82/35 (51) 96 03/23/18 19:15 82/35 03/23/18 19:13 94 22 93 Venturi Mask 14.0 55 03/23/18 19:12 Venturi Mask 14.0 55 03/23/18 19:01 Non-Rebreather 15.0 100 03/23/18 19:01 100 Non-Rebreather 15.0 100 03/23/18 19:00 104 21 81/38 (52) 95 03/23/18 19:00 81/38 03/23/18 19:00 100 24 95 Non-Rebreather 15.0 100 03/23/18 18:45 107 21 77/31 (46) 96 03/23/18 18:33 67/39 03/23/18 18:30 112 20 67/39 (48) 100 03/23/18 18:15 115 23 77/36 (50) 100 03/23/18 18:00 113 24 61/32 (42) 100 03/23/18 17:51 137 64/28 03/23/18 17:45 111 19 56/31 (39) 97 03/23/18 17:30 98.8 115 20 58/25 (36) 96 03/23/18 17:27 98.9 03/23/18 17:00 137 24 75/38 (50) 100 03/23/18 16:45 140 25 79/52 (61) 97 03/23/18 16:30 142 26 56/16 (29) 97 03/23/18 16:15 100.6 143 28 78/37 (51) 91 03/23/18 16:10 158 03/23/18 16:00 Non-Rebreather 15.0 03/23/18 16:00 142 88/48 03/23/18 16:00 99.1 142 26 62/49 (53) 97 03/23/18 15:50 145 24 88/48 (61) 88 03/23/18 13:55 130 22 96 Non-Rebreather 15.0 100 03/23/18 13:42 125 24 95 Non-Rebreather 15.0 100 Intake and Output 03/23/18 03/24/18 19:00 07:00 Intake Total 670.83 ml 2109.730 ml Output Total 165 ml 480 ml Balance 505.83 ml 1629.730 ml IV Total 670.83 ml 1704.730 ml Tube Feeding 405 ml Output Urine Total 165 ml 480 ml Laboratory Tests Test 03/23/18 20:00 03/24/18 02:10 03/24/18 05:00 Lactic Acid Level 1.30 mmol/L (0.4-2.0) Vancomycin Level Trough 16.4 ug/mL (5.0-12.0) H White Blood Count 21.1 K/UL (4.8-10.8) H Red Blood Count 2.87 M/UL (4.20-5.40) L Hemoglobin 8.8 G/DL (12.0-16.0) L Hematocrit 26.7 % (37.0-47.0) L Mean Corpuscular Volume 93 FL (80-99) Mean Corpuscular Hemoglobin 30.8 PG (27.0-31.0) Mean Corpuscular Hemoglobin Concent 33.0 G/DL (32.0-36.0) Red Cell Distribution Width 14.3 % (11.6-14.8) Platelet Count 351 K/UL (150-450) Mean Platelet Volume 4.8 FL (6.5-10.1) L Neutrophils (%) (Auto) % (45.0-75.0) Lymphocytes (%) (Auto) % (20.0-45.0) Monocytes (%) (Auto) % (1.0-10.0) Eosinophils (%) (Auto) % (0.0-3.0) Basophils (%) (Auto) % (0.0-2.0) Differential Total Cells Counted 100 Neutrophils % (Manual) 90 % (45-75) H Lymphocytes % (Manual) 5 % (20-45) L Monocytes % (Manual) 5 % (1-10) Eosinophils % (Manual) 0 % (0-3) Basophils % (Manual) 0 % (0-2) Band Neutrophils 0 % (0-8) Platelet Estimate Adequate Platelet Morphology Normal Hypochromasia 1+ Anisocytosis 1+ Sodium Level 138 MMOL/L (136-145) Potassium Level 3.8 MMOL/L (3.5-5.1) Chloride Level 103 MMOL/L (98-107) Carbon Dioxide Level 31 MMOL/L (21-32) Anion Gap 4 mmol/L (5-15) L Blood Urea Nitrogen 11 mg/dL (7-18) Creatinine 0.5 MG/DL (0.55-1.30) L Estimat Glomerular Filtration Rate mL/min (>60) Glucose Level 211 MG/DL (74-106) H Calcium Level 8.3 MG/DL (8.5-10.1) L Troponin I 0.024 ng/mL (0.000-0.056) Height (Feet): 5 Height (Inches): 3.00 Weight (Pounds): 145 General Appearance: no apparent distress, thin Cardiovascular: normal rate Respiratory/Chest: normal breath sounds, no respiratory distress Abdominal Exam: normal bowel sounds, non tender, soft, GT site - c/d/i Thaddeus Galeana NP Mar 24, 2018 12:29
[2018-03-24] MEDS: Amiodarone 900 MG in D5W 500ml 482 ML IV SCH ×3 (14:19→21:51)
--- NOTE | 2018-03-24 16:08 | Cardiac Electrophysiology PN ---
Assessment/Plan Status Narrative Technically difficult study due to patient was contracted. Study quality precludes accurate assessment of regional wall motion. Normal left ventricular chamber size, systolic function and wall motion. Left ventricular ejection fraction estimated to be 60-65 %. Mild left ventricular hypertrophy. Small circumferential pericardial effusion. Mild left atrial enlargement. Right cardiac chamber sizes are within normal limits. Aortic valve calcification with decreased cusp excursion c/w aortic stenosis. Mildly thickened mitral valve leaflets with normal excursion. Moderate mitral annulus and aortic root calcification. Normal pulmonic valve structure. Normal tricuspid valve structure. Subcostal views not obtainable due to G tube. Assessment/Plan 1. Atrial fibrillation with rapid ventricular response. Now in multifocal atrial tach. On Atenolol to 25 mg bid and iv amiodarone. Echo EF 65% 2. Urosepsis. On IV antibiotic per ID. 3. Hypertension, on atenolol. 4. Sacral decubitus ulcer. 5. Dementia. 6. Dysphagia. S/P G-tube placement 03/21/17 KEIRY RN Subjective Subjective In ICU. Cardizem drip changed to iv Amiodarone for hypotension. In SR. Levophed DCed aat 6 m today Objective Last 24 Hour Vital Signs Date Time Temp Pulse Resp B/P (MAP) Pulse Ox O2 Delivery O2 Flow Rate FiO2 03/24/18 13:15 85 21 98 Venturi Mask 14.0 55 03/24/18 13:00 85 24 92 Venturi Mask 14.0 55 03/24/18 12:00 Non-Rebreather 15.0 03/24/18 12:00 89 03/24/18 11:00 83 23 96/62 (73) 95 03/24/18 10:30 84 25 94/47 (63) 95 03/24/18 10:00 85 25 111/54 (73) 95 03/24/18 09:30 88 25 106/51 (69) 93 03/24/18 09:00 92 26 118/61 (80) 92 03/24/18 08:30 98.3 90 19 107/61 (76) 93 03/24/18 08:22 89 107/61 03/24/18 08:00 83 03/24/18 08:00 90 26 103/45 (64) 93 03/24/18 08:00 Non-Rebreather 15.0 03/24/18 07:30 89 27 102/51 (68) 93 03/24/18 07:14 91 23 93 Venturi Mask 14.0 55 03/24/18 07:00 97.4 86 26 101/58 (72) 96 03/24/18 06:55 Venturi Mask 14.0 55 03/24/18 06:55 93 Venturi Mask 14.0 55 03/24/18 06:55 87 21 93 Venturi Mask 14.0 55 03/24/18 06:00 87 26 108/66 (80) 96 03/24/18 06:00 120/65 03/24/18 05:30 126/70 03/24/18 05:00 123/71 03/24/18 05:00 81 26 123/71 (88) 96 03/24/18 04:30 83 26 116/59 (78) 96 03/24/18 04:00 74 03/24/18 04:00 119/68 03/24/18 04:00 Non-Rebreather 15.0 03/24/18 04:00 83 26 119/68 (85) 94 03/24/18 03:30 81 23 116/47 (70) 95 03/24/18 03:00 82 24 114/62 (79) 95 03/24/18 03:00 114/62 03/24/18 02:30 71 17 118/54 (75) 95 03/24/18 02:00 97.4 95 19 118/54 (75) 95 03/24/18 02:00 118/54 03/24/18 01:30 90 19 109/62 (78) 95 03/24/18 01:30 100 19 107/51 (69) 95 03/24/18 01:00 95 19 90/53 (65) 95 03/24/18 01:00 109/62 03/24/18 00:58 106 24 100 Venturi Mask 14.0 55 03/24/18 00:50 102 24 96 Venturi Mask 14.0 55 03/24/18 00:30 96 20 103/52 (69) 96 03/24/18 00:00 Non-Rebreather 15.0 03/24/18 00:00 90 18 114/56 (75) 96 03/24/18 00:00 114/56 03/23/18 23:52 82/47 03/23/18 23:30 87 18 111/60 (77) 96 03/23/18 23:00 103/52 03/23/18 23:00 91 19 103/52 (69) 98 03/23/18 22:30 92 19 95/51 (66) 97 03/23/18 22:00 98/47 03/23/18 22:00 92 18 98/47 (64) 94 03/23/18 21:45 94 18 103/58 (73) 94 03/23/18 21:30 90 18 102/50 (67) 94 03/23/18 21:15 92 18 98/52 (67) 94 03/23/18 21:00 93/54 03/23/18 21:00 95 18 93/54 (67) 94 03/23/18 20:45 93 18 97/45 (62) 92 03/23/18 20:30 94 19 97/47 (64) 93 03/23/18 20:15 92 18 97/55 (69) 95 03/23/18 20:00 106 03/23/18 20:00 Non-Rebreather 15.0 03/23/18 20:00 95/52 03/23/18 20:00 90 18 95/52 (66) 94 03/23/18 19:45 95 20 80/36 (51) 94 03/23/18 19:30 81/38 03/23/18 19:30 93 19 81/38 (52) 94 03/23/18 19:15 97 20 82/35 (51) 96 03/23/18 19:15 82/35 03/23/18 19:13 94 22 93 Venturi Mask 14.0 55 03/23/18 19:12 Venturi Mask 14.0 55 03/23/18 19:01 Non-Rebreather 15.0 100 03/23/18 19:01 100 Non-Rebreather 15.0 100 03/23/18 19:00 104 21 81/38 (52) 95 03/23/18 19:00 81/38 03/23/18 19:00 100 24 95 Non-Rebreather 15.0 100 03/23/18 18:45 107 21 77/31 (46) 96 03/23/18 18:33 67/39 03/23/18 18:30 112 20 67/39 (48) 100 1/6/19 18:15 115 23 77/36 (50) 100 03/23/18 18:00 113 24 61/32 (42) 100 03/23/18 17:51 137 64/28 03/23/18 17:45 111 19 56/31 (39) 97 03/23/18 17:30 98.8 115 20 58/25 (36) 96 03/23/18 17:27 98.9 03/23/18 17:00 137 24 75/38 (50) 100 03/23/18 16:45 140 25 79/52 (61) 97 03/23/18 16:30 142 26 56/16 (29) 97 03/23/18 16:15 100.6 143 28 78/37 (51) 91 03/23/18 16:10 158 Intake and Output 03/23/18 03/24/18 19:00 07:00 Intake Total 670.83 ml 2109.730 ml Output Total 165 ml 480 ml Balance 505.83 ml 1629.730 ml IV Total 670.83 ml 1704.730 ml Tube Feeding 405 ml Output Urine Total 165 ml 480 ml Laboratory Tests Test 03/23/18 20:00 03/24/18 02:10 03/24/18 05:00 Lactic Acid Level 1.30 mmol/L (0.4-2.0) Vancomycin Level Trough 16.4 ug/mL (5.0-12.0) H White Blood Count 21.1 K/UL (4.8-10.8) H Red Blood Count 2.87 M/UL (4.20-5.40) L Hemoglobin 8.8 G/DL (12.0-16.0) L Hematocrit 26.7 % (37.0-47.0) L Mean Corpuscular Volume 93 FL (80-99) Mean Corpuscular Hemoglobin 30.8 PG (27.0-31.0) Mean Corpuscular Hemoglobin Concent 33.0 G/DL (32.0-36.0) Red Cell Distribution Width 14.3 % (11.6-14.8) Platelet Count 351 K/UL (150-450) Mean Platelet Volume 4.8 FL (6.5-10.1) L Neutrophils (%) (Auto) % (45.0-75.0) Lymphocytes (%) (Auto) % (20.0-45.0) Monocytes (%) (Auto) % (1.0-10.0) Eosinophils (%) (Auto) % (0.0-3.0) Basophils (%) (Auto) % (0.0-2.0) Differential Total Cells Counted 100 Neutrophils % (Manual) 90 % (45-75) H Lymphocytes % (Manual) 5 % (20-45) L Monocytes % (Manual) 5 % (1-10) Eosinophils % (Manual) 0 % (0-3) Basophils % (Manual) 0 % (0-2) Band Neutrophils 0 % (0-8) Platelet Estimate Adequate Platelet Morphology Normal Hypochromasia 1+ Anisocytosis 1+ Sodium Level 138 MMOL/L (136-145) Potassium Level 3.8 MMOL/L (3.5-5.1) Chloride Level 103 MMOL/L (98-107) Carbon Dioxide Level 31 MMOL/L (21-32) Anion Gap 4 mmol/L (5-15) L Blood Urea Nitrogen 11 mg/dL (7-18) Creatinine 0.5 MG/DL (0.55-1.30) L Estimat Glomerular Filtration Rate mL/min (>60) Glucose Level 211 MG/DL (74-106) H Calcium Level 8.3 MG/DL (8.5-10.1) L Troponin I 0.024 ng/mL (0.000-0.056) Microbiology Date/Time Source Procedure Growth Status 03/22/18 15:00 Sputum Induced Gram Stain - Final Resulted 03/22/18 15:00 Sputum Induced Sputum Culture Pending Resulted Objective HEAD AND NECK: No JVD. LUNGS: Coarse rhonchi. CARDIOVASCULAR: Irregular tachy S1 and S2 with no gallop. ABDOMEN: Status post colostomy. GT in place EXTREMITIES: No pitting edema Fredrick Burk MD Mar 24, 2018 16:08
--- NOTE | 2018-03-24 18:27 | General Surgery Progress Note ---
General Surgery-Progress Note Subjective Procedure Performed left internal jugular central venous catheter insertion Additional Comments unchanged. lines stable. cxr okay Objective Last 24 Hour Vital Signs Date Time Temp Pulse Resp B/P (MAP) Pulse Ox O2 Delivery O2 Flow Rate FiO2 03/24/18 18:19 89 146/78 03/24/18 13:15 85 21 98 Venturi Mask 14.0 55 03/24/18 13:00 85 24 92 Venturi Mask 14.0 55 03/24/18 12:00 Non-Rebreather 15.0 03/24/18 12:00 89 03/24/18 11:00 83 23 96/62 (73) 95 03/24/18 10:30 84 25 94/47 (63) 95 03/24/18 10:00 85 25 111/54 (73) 95 03/24/18 09:30 88 25 106/51 (69) 93 03/24/18 09:00 92 26 118/61 (80) 92 03/24/18 08:30 98.3 90 19 107/61 (76) 93 03/24/18 08:22 89 107/61 03/24/18 08:00 83 03/24/18 08:00 90 26 103/45 (64) 93 03/24/18 08:00 Non-Rebreather 15.0 03/24/18 07:30 89 27 102/51 (68) 93 03/24/18 07:14 91 23 93 Venturi Mask 14.0 55 03/24/18 07:00 97.4 86 26 101/58 (72) 96 03/24/18 06:55 Venturi Mask 14.0 55 03/24/18 06:55 93 Venturi Mask 14.0 55 03/24/18 06:55 87 21 93 Venturi Mask 14.0 55 03/24/18 06:00 87 26 108/66 (80) 96 03/24/18 06:00 120/65 03/24/18 05:30 126/70 03/24/18 05:00 123/71 03/24/18 05:00 81 26 123/71 (88) 96 03/24/18 04:30 83 26 116/59 (78) 96 03/24/18 04:00 74 03/24/18 04:00 119/68 03/24/18 04:00 Non-Rebreather 15.0 03/24/18 04:00 83 26 119/68 (85) 94 03/24/18 03:30 81 23 116/47 (70) 95 03/24/18 03:00 82 24 114/62 (79) 95 03/24/18 03:00 114/62 03/24/18 02:30 71 17 118/54 (75) 95 03/24/18 02:00 97.4 95 19 118/54 (75) 95 03/24/18 02:00 118/54 03/24/18 01:30 90 19 109/62 (78) 95 03/24/18 01:30 100 19 107/51 (69) 95 03/24/18 01:00 95 19 90/53 (65) 95 03/24/18 01:00 109/62 03/24/18 00:58 106 24 100 Venturi Mask 14.0 55 03/24/18 00:50 102 24 96 Venturi Mask 14.0 55 03/24/18 00:30 96 20 103/52 (69) 96 03/24/18 00:00 Non-Rebreather 15.0 03/24/18 00:00 90 18 114/56 (75) 96 03/24/18 00:00 114/56 03/23/18 23:52 82/47 03/23/18 23:30 87 18 111/60 (77) 96 03/23/18 23:00 103/52 03/23/18 23:00 91 19 103/52 (69) 98 03/23/18 22:30 92 19 95/51 (66) 97 03/23/18 22:00 98/47 03/23/18 22:00 92 18 98/47 (64) 94 03/23/18 21:45 94 18 103/58 (73) 94 03/23/18 21:30 90 18 102/50 (67) 94 03/23/18 21:15 92 18 98/52 (67) 94 03/23/18 21:00 93/54 03/23/18 21:00 95 18 93/54 (67) 94 03/23/18 20:45 93 18 97/45 (62) 92 03/23/18 20:30 94 19 97/47 (64) 93 03/23/18 20:15 92 18 97/55 (69) 95 03/23/18 20:00 106 03/23/18 20:00 Non-Rebreather 15.0 03/23/18 20:00 95/52 03/23/18 20:00 90 18 95/52 (66) 94 03/23/18 19:45 95 20 80/36 (51) 94 03/23/18 19:30 81/38 03/23/18 19:30 93 19 81/38 (52) 94 03/23/18 19:15 97 20 82/35 (51) 96 03/23/18 19:15 82/35 03/23/18 19:13 94 22 93 Venturi Mask 14.0 55 03/23/18 19:12 Venturi Mask 14.0 55 03/23/18 19:01 Non-Rebreather 15.0 100 03/23/18 19:01 100 Non-Rebreather 15.0 100 03/23/18 19:00 104 21 81/38 (52) 95 03/23/18 19:00 81/38 03/23/18 19:00 100 24 95 Non-Rebreather 15.0 100 03/23/18 18:45 107 21 77/31 (46) 96 03/23/18 18:33 67/39 03/23/18 18:30 112 20 67/39 (48) 100 I&O Intake and Output 03/23/18 03/24/18 19:00 07:00 Intake Total 670.83 ml 2109.730 ml Output Total 165 ml 480 ml Balance 505.83 ml 1629.730 ml IV Total 670.83 ml 1704.730 ml Tube Feeding 405 ml Output Urine Total 165 ml 480 ml Dressing: other Wound: other Drains: other Cardiovascular: other Respiratory: other Abdomen: other Extremities: other Laboratory Tests Test 03/23/18 20:00 03/24/18 02:10 03/24/18 05:00 Lactic Acid Level 1.30 mmol/L (0.4-2.0) Vancomycin Level Trough 16.4 ug/mL (5.0-12.0) H White Blood Count 21.1 K/UL (4.8-10.8) H Red Blood Count 2.87 M/UL (4.20-5.40) L Hemoglobin 8.8 G/DL (12.0-16.0) L Hematocrit 26.7 % (37.0-47.0) L Mean Corpuscular Volume 93 FL (80-99) Mean Corpuscular Hemoglobin 30.8 PG (27.0-31.0) Mean Corpuscular Hemoglobin Concent 33.0 G/DL (32.0-36.0) Red Cell Distribution Width 14.3 % (11.6-14.8) Platelet Count 351 K/UL (150-450) Mean Platelet Volume 4.8 FL (6.5-10.1) L Neutrophils (%) (Auto) % (45.0-75.0) Lymphocytes (%) (Auto) % (20.0-45.0) Monocytes (%) (Auto) % (1.0-10.0) Eosinophils (%) (Auto) % (0.0-3.0) Basophils (%) (Auto) % (0.0-2.0) Differential Total Cells Counted 100 Neutrophils % (Manual) 90 % (45-75) H Lymphocytes % (Manual) 5 % (20-45) L Monocytes % (Manual) 5 % (1-10) Eosinophils % (Manual) 0 % (0-3) Basophils % (Manual) 0 % (0-2) Band Neutrophils 0 % (0-8) Platelet Estimate Adequate Platelet Morphology Normal Hypochromasia 1+ Anisocytosis 1+ Sodium Level 138 MMOL/L (136-145) Potassium Level 3.8 MMOL/L (3.5-5.1) Chloride Level 103 MMOL/L (98-107) Carbon Dioxide Level 31 MMOL/L (21-32) Anion Gap 4 mmol/L (5-15) L Blood Urea Nitrogen 11 mg/dL (7-18) Creatinine 0.5 MG/DL (0.55-1.30) L Estimat Glomerular Filtration Rate mL/min (>60) Glucose Level 211 MG/DL (74-106) H Calcium Level 8.3 MG/DL (8.5-10.1) L Troponin I 0.024 ng/mL (0.000-0.056) Plan Problems: (1) Sacral decubitus ulcer, stage IV Assessment & Plan: Fungal rash R and L axillae ,R and L chest and back. Stage IV Full thickness pressure injury to R elbow (L)2.2cm x (W03cm x (D)0.7cm ,undermining 9-3 by 1.8cm @9o'clock.Base of wound beefy red with trace slough, bone is visible.Wound is malodorous with small amt brown exudate. Non- blanchable erythema periwound. Stage IV Full thickness pressure injury to sacrum (L)8cm x (W)10.6cm x (D)2.7cm , Undermining 7-4 by 3.5cm @12o'clock.Wound is malodorous with small amt sanguineous exudate.Wound bed beefy red with an area of soft necrosis at 8-12 at base of wound and bone is visible at coccyx.Edges non-adherent .Non- blanching erythema with moisture denudement periwound and entire buttocks extending into perineum. Has had prior debridement as noted by exam Contractures bilat lower ext with large senile purpura noted to lateral R tibia ,Posterior and nereyda L tibia. Full thickness pressure injury noted to L heel (L)4cm x (W)3.5cm,wound bed viable ,(+)maceration along edges with area of soft necrosis periwound Tx.Plan: Loosely pack R elbow with NS or Dakin's0.125% charo soaked gauze.Apply Cavilon skin barrier periwound .Cover with optifoam drsg Twice daily and prn. Loosely pack sacral wound with NS or Dakin's 0.125% charo soaked gauze. Apply Moisture Barrier Paste periwound .Cover optifoam drsg Twice daily and prn. Cleanse L heel wound with Saline. Apply Hydrogel .Cavilon skin barrier periwound.Cover with Optifoam drsg Daily and prn. Air Fluidized Mattress. Reposition at least every 2hours or as tolerated. Soft pillow between knees. Off-load heels with pillow. Remedy Antifungal Cream to fungal area bilat axillae ,chest and abd Twice daily. Appreciate bioethics input. if continue with full aggressive care would likely need debridement of sacral and right elbow wounds at some point once able to improve nutritional status. thank you (2) Sepsis Assessment & Plan: lines placed wounds cleaned prior cxr reviewed. line in place cont with care will monitor Derick Ramsay Mar 24, 2018 18:27
--- NOTE | 2018-03-24 18:30 | Internal Med Progress Note ---
Subjective Date of Service: Mar 24, 2018 Physician Name Shankar Betts Attending Physician Davian Scott MD Current Medications Medications (Trade) Dose Ordered Sig/Cele Route PRN Reason Start Time Stop Time Status Last Admin Dose Admin Acetaminophen (Tylenol) 650 mg Q4H PRN NG fever (temp>100.5F) 03/23/18 17:45 04/17/18 05:44 03/23/18 16:57 Acetylcysteine (Mucomyst) 200 mg Q6HRT HHN 03/23/18 19:00 04/22/18 00:59 03/24/18 13:00 Amiodarone HCl 900 mg/Dextrose 500 ml @ 0 mls/hr Q24H IV 03/23/18 18:30 03/24/18 18:29 03/24/18 14:19 Atenolol (Tenormin) 25 mg BID NG 03/23/18 18:00 04/06/18 08:59 03/24/18 18:19 Cefepime HCl 1 gm/ Dextrose 55 ml @ 110 mls/hr DAILY IVPB 03/24/18 09:00 03/25/18 09:29 03/24/18 08:20 Chlorhexidine Gluconate (Sahra-Hex 2%) 1 applic DAILY@2000 TOPIC 03/23/18 20:00 04/13/18 19:59 03/23/18 20:51 Dextrose/ Electrolytes 1,000 ml @ 50 mls/hr Q20H IV 03/23/18 17:30 04/09/18 17:29 03/24/18 06:27 Gabapentin (Neurontin) 300 mg THREE TIMES A DAY NG 03/23/18 18:00 04/05/18 17:59 03/24/18 18:18 Ipratropium [place] (Atrovent) 500 mcg Q4H PRN HHN Shortness of Breath 03/23/18 19:00 03/28/18 18:59 03/24/18 13:00 Iron Sucrose 100 mg/Sodium Chloride 60 ml @ 240 mls/hr BEDTIME IV 03/23/18 21:00 03/25/18 21:14 03/23/18 20:52 Levalbuterol HCl (Xopenex) 1.25 mg Q4H PRN HHN Shortness of Breath 03/23/18 19:00 03/28/18 18:59 03/24/18 00:47 Metronidazole (Flagyl) 500 mg Q8HR ORAL 03/23/18 22:00 03/26/18 13:59 03/24/18 14:18 Nitroglycerin (Ntg) 0.4 mg Q5M PRN SL Prn Chest Pain 03/23/18 16:35 04/05/18 17:10 Norepinephrine Bitartrate 4 mg/ Dextrose 250 ml @ 0 mls/hr Q24H IV 03/23/18 18:30 04/22/18 18:29 03/23/18 23:52 Olanzapine (ZyPREXA) 2.5 mg Q6H PRN NG agitation 03/23/18 16:00 04/07/18 15:59 Ondansetron HCl (Zofran) 4 mg Q6H PRN IVP Nausea & Vomiting 03/23/18 16:00 04/05/18 15:59 Polyethylene Glycol (Miralax) 17 gm DAILYPRN PRN NG Constipation 03/23/18 16:00 04/22/18 15:59 Promethazine HCl/ Codeine (Phenergan with Codeine) 5 ml Q4H PRN NG For Cough 03/23/18 17:15 04/05/18 17:11 Sodium Hypochlorite (Dakin's Quarter Strength) 1 applic DAILY TOPIC 03/24/18 09:00 04/13/18 12:29 03/24/18 08:22 Tamsulosin HCl (Flomax) 0.4 mg BEDTIME ORAL 03/23/18 21:00 04/05/18 20:59 03/23/18 20:53 Vancomycin HCl (Vanco rx to dose) 1 ea DAILY PRN MISC Per rx protocol 03/24/18 09:00 04/14/18 10:59 Vancomycin HCl 1 gm/Dextrose 275 ml @ 183.708 mls/hr Q12H IVPB 03/24/18 03:00 03/27/18 14:59 03/24/18 14:19 Allergies: Coded Allergies: No Known Allergies (Unverified , 03/06/18) ROS Limited/Unobtainable: Yes Subjective 87 YO F admitted with hematuria and gen weakness. Now pyelonephritis respiratory distress and sepsis. Cover for Int Med-Dr Scott. ICU. On levophed ; Tolerating venturi mask Objective Last Vital Signs Date Time Temp Pulse Resp B/P (MAP) Pulse Ox O2 Delivery O2 Flow Rate FiO2 03/24/18 18:19 89 146/78 03/24/18 13:15 21 98 Venturi Mask 14.0 55 03/24/18 08:30 98.3 Laboratory Tests Test 03/23/18 20:00 03/24/18 02:10 03/24/18 05:00 Lactic Acid Level 1.30 mmol/L (0.4-2.0) Vancomycin Level Trough 16.4 ug/mL (5.0-12.0) H White Blood Count 21.1 K/UL (4.8-10.8) H Red Blood Count 2.87 M/UL (4.20-5.40) L Hemoglobin 8.8 G/DL (12.0-16.0) L Hematocrit 26.7 % (37.0-47.0) L Mean Corpuscular Volume 93 FL (80-99) Mean Corpuscular Hemoglobin 30.8 PG (27.0-31.0) Mean Corpuscular Hemoglobin Concent 33.0 G/DL (32.0-36.0) Red Cell Distribution Width 14.3 % (11.6-14.8) Platelet Count 351 K/UL (150-450) Mean Platelet Volume 4.8 FL (6.5-10.1) L Neutrophils (%) (Auto) % (45.0-75.0) Lymphocytes (%) (Auto) % (20.0-45.0) Monocytes (%) (Auto) % (1.0-10.0) Eosinophils (%) (Auto) % (0.0-3.0) Basophils (%) (Auto) % (0.0-2.0) Differential Total Cells Counted 100 Neutrophils % (Manual) 90 % (45-75) H Lymphocytes % (Manual) 5 % (20-45) L Monocytes % (Manual) 5 % (1-10) Eosinophils % (Manual) 0 % (0-3) Basophils % (Manual) 0 % (0-2) Band Neutrophils 0 % (0-8) Platelet Estimate Adequate Platelet Morphology Normal Hypochromasia 1+ Anisocytosis 1+ Sodium Level 138 MMOL/L (136-145) Potassium Level 3.8 MMOL/L (3.5-5.1) Chloride Level 103 MMOL/L (98-107) Carbon Dioxide Level 31 MMOL/L (21-32) Anion Gap 4 mmol/L (5-15) L Blood Urea Nitrogen 11 mg/dL (7-18) Creatinine 0.5 MG/DL (0.55-1.30) L Estimat Glomerular Filtration Rate mL/min (>60) Glucose Level 211 MG/DL (74-106) H Calcium Level 8.3 MG/DL (8.5-10.1) L Troponin I 0.024 ng/mL (0.000-0.056) Microbiology Date/Time Source Procedure Growth Status 03/22/18 15:00 Sputum Induced Gram Stain - Final Resulted 03/22/18 15:00 Sputum Induced Sputum Culture Pending Resulted Intake and Output 03/23/18 03/24/18 19:00 07:00 Intake Total 670.83 ml 2109.730 ml Output Total 165 ml 480 ml Balance 505.83 ml 1629.730 ml IV Total 670.83 ml 1704.730 ml Tube Feeding 405 ml Output Urine Total 165 ml 480 ml Objective PHYSICAL EXAMINATION: GENERAL: The patient is a well-developed and well-nourished white female, in no apparent distress. HEENT: Eyes, pupils are equal and responsive to light and accommodation. Extraocular movements are intact. NECK: Supple without lymphadenopathy. CHEST: crackles and rales at bases; Decreased breath sounds at bilateral bases. Otherwise, clear to auscultation without wheezes or rales. CARDIOVASCULAR: Tachycardic. Regular rate and rhythm. S1, S2 are normal without murmurs, rubs, or gallops. ABDOMEN: Soft, nontender, and nondistended. Positive bowel sounds. No evidence of hepatosplenomegaly. Currently, no rebound or guarding noted. EXTREMITIES: Negative for clubbing, cyanosis, or edema. RECTAL/GENITAL: Deferred. NEUROLOGIC: Cranial nerves II through XII are grossly intact without focal deficits. Assessment/Plan Problem List: (1) Pyelonephritis Assessment & Plan: Pseudamonas and strep. See ID note-Continue cefepime and vanco (2) Sepsis (3) HTN (hypertension) Assessment & Plan: Currently hypotensive (4) Hypercholesteremia (5) Sacral decubitus ulcer, stage IV Assessment & Plan: See surgery note-dr Ramsay (6) Urinary tract infection Assessment & Plan: pseudamonas; continue cefepime per ID (7) Pneumonia Assessment & Plan: New RLL. Previously MRSA. Continue vanco per ID (8) Atrial fibrillation with RVR Assessment & Plan: Transfer to ICU. Now paroxsymal atrial fib with RVR-see cardiology note. (9) Respiratory distress Assessment & Plan: On non rebreather mask Status: not improved Shankar Betts MD Mar 24, 2018 18:30
[2018-03-24] MEDS: Dyna-Hex 2% Top Sol 2oz TOPIC SCH (20:47)
[2018-03-24] MEDS: Tamsulosin 0.4mg cap ORAL SCH (20:48)
[2018-03-24] MEDS: Iron Sucrose 100 MG in NS 55 ML IV SCH (20:48)
--- NOTE | 2018-03-24 22:31 | General Progress Note ---
Assessment/Plan Assessment/Plan Zyprexa prn recommend palliative care/hospice the pt lacks capacity to make decisions. Ativan prn The son is not calling back to our phone calls Subjective Allergies: Coded Allergies: No Known Allergies (Unverified , 03/06/18) Subjective confused decrease episodes of agitation. the pt is the same dystonic Objective Last 24 Hour Vital Signs Date Time Temp Pulse Resp B/P (MAP) Pulse Ox O2 Delivery O2 Flow Rate FiO2 03/24/18 20:41 82 23 94 Facial 60 03/24/18 20:00 Venturi Mask 14.0 55 03/24/18 20:00 92 Venturi Mask 14.0 55 03/24/18 20:00 Venturi Mask 14.0 55 03/24/18 20:00 Venturi Mask 14.0 55 03/24/18 18:30 87 28 142/74 (96) 96 03/24/18 18:19 89 146/78 03/24/18 18:00 88 26 138/99 (112) 96 03/24/18 17:30 84 24 127/62 (83) 94 03/24/18 17:00 82 24 146/66 (92) 94 03/24/18 16:30 83 25 137/80 (99) 95 03/24/18 16:00 Non-Rebreather 15.0 03/24/18 16:00 81 03/24/18 16:00 98.7 84 26 101/56 (71) 96 03/24/18 15:30 82 26 105/58 (74) 96 03/24/18 15:00 82 24 105/58 (74) 96 03/24/18 14:30 82 25 105/58 (74) 96 03/24/18 14:00 85 24 121/63 (82) 97 03/24/18 13:30 82 25 104/55 (71) 97 03/24/18 13:15 85 21 98 Venturi Mask 14.0 55 03/24/18 13:00 84 27 105/54 (71) 98 03/24/18 13:00 85 24 92 Venturi Mask 14.0 55 03/24/18 12:30 83 24 99/52 (68) 95 03/24/18 12:00 Non-Rebreather 15.0 03/24/18 12:00 89 03/24/18 12:00 98.3 83 26 113/65 (81) 95 03/24/18 11:30 81 25 101/55 (70) 95 03/24/18 11:00 83 23 96/62 (73) 95 03/24/18 10:30 84 25 94/47 (63) 95 03/24/18 10:00 85 25 111/54 (73) 95 03/24/18 09:30 88 25 106/51 (69) 93 03/24/18 09:00 92 26 118/61 (80) 92 03/24/18 08:30 98.3 90 19 107/61 (76) 93 03/24/18 08:22 89 107/61 03/24/18 08:00 83 03/24/18 08:00 90 26 103/45 (64) 93 03/24/18 08:00 Non-Rebreather 15.0 03/24/18 07:30 89 27 102/51 (68) 93 03/24/18 07:14 91 23 93 Venturi Mask 14.0 55 03/24/18 07:00 97.4 86 26 101/58 (72) 96 03/24/18 06:55 Venturi Mask 14.0 55 03/24/18 06:55 93 Venturi Mask 14.0 55 03/24/18 06:55 87 21 93 Venturi Mask 14.0 55 03/24/18 06:00 87 26 108/66 (80) 96 03/24/18 06:00 120/65 03/24/18 05:30 126/70 03/24/18 05:00 123/71 03/24/18 05:00 81 26 123/71 (88) 96 03/24/18 04:30 83 26 116/59 (78) 96 03/24/18 04:00 74 03/24/18 04:00 119/68 03/24/18 04:00 Non-Rebreather 15.0 03/24/18 04:00 83 26 119/68 (85) 94 03/24/18 03:30 81 23 116/47 (70) 95 03/24/18 03:00 82 24 114/62 (79) 95 03/24/18 03:00 114/62 03/24/18 02:30 71 17 118/54 (75) 95 03/24/18 02:00 97.4 95 19 118/54 (75) 95 03/24/18 02:00 118/54 03/24/18 01:30 90 19 109/62 (78) 95 03/24/18 01:30 100 19 107/51 (69) 95 03/24/18 01:00 95 19 90/53 (65) 95 03/24/18 01:00 109/62 03/24/18 00:58 106 24 100 Venturi Mask 14.0 55 03/24/18 00:50 102 24 96 Venturi Mask 14.0 55 03/24/18 00:30 96 20 103/52 (69) 96 03/24/18 00:00 Non-Rebreather 15.0 03/24/18 00:00 90 18 114/56 (75) 96 03/24/18 00:00 114/56 03/23/18 23:52 82/47 03/23/18 23:30 87 18 111/60 (77) 96 03/23/18 23:00 103/52 03/23/18 23:00 91 19 103/52 (69) 98 Intake and Output 03/23/18 03/24/18 19:00 07:00 Intake Total 670.83 ml 2109.730 ml Output Total 165 ml 480 ml Balance 505.83 ml 1629.730 ml IV Total 670.83 ml 1704.730 ml Tube Feeding 405 ml Output Urine Total 165 ml 480 ml Laboratory Tests 03/24/18 02:10: Vancomycin Level Trough 16.4H 03/24/18 05:00: White Blood Count 21.1H, Red Blood Count 2.87L, Hemoglobin 8.8L, Hematocrit 26.7L, Mean Corpuscular Volume 93, Mean Corpuscular Hemoglobin 30.8, Mean Corpuscular Hemoglobin Concent 33.0, Red Cell Distribution Width 14.3, Platelet Count 351, Mean Platelet Volume 4.8L, Neutrophils (%) (Auto) , Lymphocytes (%) ( Auto) , Monocytes (%) (Auto) , Eosinophils (%) (Auto) , Basophils (%) (Auto) , Differential Total Cells Counted 100, Neutrophils % (Manual) 90H, Lymphocytes % (Manual) 5L, Monocytes % (Manual) 5, Eosinophils % (Manual) 0, Basophils % ( Manual) 0, Band Neutrophils 0, Platelet Estimate Adequate, Platelet Morphology Normal, Hypochromasia 1+, Anisocytosis 1+, Sodium Level 138, Potassium Level 3.8 , Chloride Level 103, Carbon Dioxide Level 31, Anion Gap 4L, Blood Urea Nitrogen 11, Creatinine 0.5L, Estimat Glomerular Filtration Rate , Glucose Level 211H, Calcium Level 8.3L, Troponin I 0.024 Height (Feet): 5 Height (Inches): 3.00 Weight (Pounds): 145 General Appearance: alert, confused, agitated Bj Martinez MD Mar 24, 2018 22:31
[2018-03-25] VITALS (31 sets, daily range): BP systolic 93–131; BP diastolic 32–64
[2018-03-25] MEDS: Ipratropium 0.02% Inh Soln 2.5ml UD HHN PRN ×4 (01:54→20:07)
[2018-03-25] MEDS: Acetylcysteine 20% Soln 4ml HHN SCH ×4 (01:54→20:05)
[2018-03-25] MEDS: D5 1/2NS w/KCL 10meq 1,000 ML IV SCH (02:42)
[2018-03-25] MEDS: Vancomycin 1 GM in D5W 275 ML IVPB SCH ×2 (02:49→15:18)
[2018-03-25] MEDS: metroNIDAZOLE 500mg tab ORAL SCH ×3 (06:15→22:06)
[2018-03-25 07:06] LABS: BASOPHILS % (AUTO) 0.4 % (0.0-2.0); HEMATOCRIT 23.7 % (37.0-47.0); LYMPHOCYTES % (AUTO) 7.5 % (20.0-45.0); MEAN CORPUSCULAR VOLUME 91 FL (80-99); MONOCYTES % (AUTO) 7.1 % (1.0-10.0); PLATELET COUNT 272 K/UL (150-450); RED CELL DISTRIBUTION WIDTH 14.7 % (11.6-14.8); WHITE BLOOD COUNT 14.8 K/UL (4.8-10.8)
[2018-03-25] MEDS: Levalbuterol Inh UD 1.25mg/0.5ml HHN PRN ×2 (07:11→20:07)
[2018-03-25 07:12] LABS: ANION GAP 2 mmol/L (5-15); BLOOD UREA NITROGEN 11 mg/dL (7-18); CALCIUM 7.9 MG/DL (8.5-10.1); CARBON DIOXIDE 30 MMOL/L (21-32); CHLORIDE 104 MMOL/L (98-107); CREATININE 0.4 MG/DL (0.55-1.30); POTASSIUM 4.4 MMOL/L (3.5-5.1); SODIUM 136 MMOL/L (136-145)
[2018-03-25] MEDS: Atenolol 25mg tab NG SCH ×2 (09:00→17:56)
[2018-03-25] MEDS: Dakin's 0.125% Soln (Quarter Strength) 16oz TOPIC SCH (09:00)
[2018-03-25] MEDS: Cefepime HCl 1 GM in D5W 55 ML IVPB SCH (09:12)
--- NOTE | 2018-03-25 09:54 | Pulmonolgy Critical Care Note ---
Critical Care - Asmt/Plan Problems: (1) Respiratory distress (2) Pneumonia (3) Sacral decubitus ulcer, stage IV (4) Protein-calorie malnutrition, severe (5) At high risk for aspiration Respiratory: monitor respiratory rate, adjust FIO2, CXR Cardiac: continue to monitor HR/BP Renal: F/U I&O Infectious Disease: check cultures, continue antibiotics Gastrointestinal: hold feedings Endocrine: monitor blood sugar Hematologic: monitor H/H Neurologic: PRN Ativan Prophylaxis: Protonix Disposition: keep in ICU Notes Reviewed: cardio, 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 with: nurses, consultants, case reviewerdivision manager - Objective Last 24 Hour Vital Signs Date Time Temp Pulse Resp B/P (MAP) Pulse Ox O2 Delivery O2 Flow Rate FiO2 03/25/18 09:00 99 98/57 03/25/18 09:00 86 26 111/57 (75) 94 03/25/18 08:00 Non-Rebreather 15.0 03/25/18 08:00 99.6 99 19 98/57 (71) 99 03/25/18 07:26 86 28 95 Venturi Mask 14.0 55 03/25/18 07:13 94 Venturi Mask 14.0 55 03/25/18 07:13 Venturi Mask 14.0 55 03/25/18 07:13 81 25 94 Venturi Mask 14.0 55 03/25/18 07:00 78 20 110/45 (66) 96 03/25/18 06:30 79 20 101/57 (72) 96 03/25/18 06:00 98.4 79 20 100/51 (67) 96 03/25/18 05:30 80 19 107/51 (69) 94 03/25/18 05:25 85 35 93 Full Face 50 03/25/18 05:00 85 19 106/60 (75) 93 03/25/18 04:30 85 19 97/60 (72) 92 03/25/18 04:00 73 03/25/18 04:00 75 19 104/49 (67) 99 03/25/18 04:00 Non-Rebreather 15.0 03/25/18 03:30 78 19 101/51 (68) 100 03/25/18 03:30 76 18 95 Full Face 50 03/25/18 03:00 76 19 106/50 (68) 100 03/25/18 02:30 74 19 102/46 (64) 100 03/25/18 02:00 73 19 101/50 (67) 100 03/25/18 01:56 88 25 99 Bi-pap 70 03/25/18 01:45 80 33 97 Bi-pap 70 03/25/18 01:30 73 19 104/50 (68) 100 03/25/18 01:30 79 25 94 Facial 70 03/25/18 01:00 74 19 102/46 (64) 100 03/25/18 00:30 76 19 106/53 (70) 100 03/25/18 00:00 78 03/25/18 00:00 Non-Rebreather 15.0 03/25/18 00:00 77 19 106/56 (73) 100 03/24/18 23:30 75 19 111/57 (75) 100 03/24/18 23:30 77 24 93 Facial 70 03/24/18 23:00 98.4 79 19 117/70 (86) 100 03/24/18 22:30 77 19 114/55 (74) 100 03/24/18 22:00 81 22 164/73 (103) 100 03/24/18 21:30 79 22 153/76 (101) 100 03/24/18 21:00 79 21 123/60 (81) 97 03/24/18 20:41 82 23 94 Facial 60 03/24/18 20:30 82 24 121/59 (79) 93 03/24/18 20:00 Venturi Mask 14.0 55 03/24/18 20:00 92 Venturi Mask 14.0 55 03/24/18 20:00 Venturi Mask 14.0 55 03/24/18 20:00 82 24 119/65 (83) 97 03/24/18 20:00 79 03/24/18 20:00 Non-Rebreather 15.0 03/24/18 20:00 Venturi Mask 14.0 55 03/24/18 19:30 82 23 124/61 (82) 97 03/24/18 19:00 84 24 129/82 (98) 96 03/24/18 18:30 87 28 142/74 (96) 96 03/24/18 18:19 89 146/78 03/24/18 18:00 88 26 138/99 (112) 96 03/24/18 17:30 84 24 127/62 (83) 94 03/24/18 17:00 82 24 146/66 (92) 94 03/24/18 16:30 83 25 137/80 (99) 95 03/24/18 16:00 Non-Rebreather 15.0 03/24/18 16:00 81 03/24/18 16:00 98.7 84 26 101/56 (71) 96 03/24/18 15:30 82 26 105/58 (74) 96 03/24/18 15:00 82 24 105/58 (74) 96 03/24/18 14:30 82 25 105/58 (74) 96 03/24/18 14:00 85 24 121/63 (82) 97 03/24/18 13:30 82 25 104/55 (71) 97 03/24/18 13:15 85 21 98 Venturi Mask 14.0 55 03/24/18 13:00 84 27 105/54 (71) 98 03/24/18 13:00 85 24 92 Venturi Mask 14.0 55 03/24/18 12:30 83 24 99/52 (68) 95 03/24/18 12:00 Non-Rebreather 15.0 03/24/18 12:00 89 03/24/18 12:00 98.3 83 26 113/65 (81) 95 03/24/18 11:30 81 25 101/55 (70) 95 03/24/18 11:00 83 23 96/62 (73) 95 03/24/18 10:30 84 25 94/47 (63) 95 03/24/18 10:00 85 25 111/54 (73) 95 Status: awake Condition: critical HEENT: atraumatic Lungs: clear Heart: HR/BP stable, regular Abdomen: non-tender, active bowel sounds Extremities: edema Decubiti: location Micro: Microbiology Date/Time Source Procedure Growth Status 03/22/18 15:00 Sputum Induced Gram Stain - Final Resulted 03/22/18 15:00 Sputum Culture - Preliminary Staphylococcus Aureus Gram Negative Bacillus 1 Usual Respiratory [place] Resulted Accucheck: 111 Critical Care - Subjective ROS Limited/Unobtainable: Yes Condition: critical EKG Rhythm: Sinus Rhythm FI02: 55 Sputum Amount: None Tube Feeding Amount: 45 I&O: Intake and Output 03/24/18 03/25/18 18:59 06:59 Intake Total 1912.326 ml 1648.27 ml Output Total 690 ml 465 ml Balance 1222.326 ml 1183.27 ml Intake Free Water 150 ml 60 ml IV Total 1222.326 ml 1093.27 ml Tube Feeding 540 ml 495 ml Output Urine Total 540 ml 465 ml Stool Total 150 ml # Bowel Movements 3 1 CXR: bilateral infiltrate Labs: Laboratory Tests Test 03/25/18 06:20 White Blood Count 14.8 K/UL (4.8-10.8) H Red Blood Count 2.60 M/UL (4.20-5.40) L Hemoglobin 8.0 G/DL (12.0-16.0) L Hematocrit 23.7 % (37.0-47.0) L Mean Corpuscular Volume 91 FL (80-99) Mean Corpuscular Hemoglobin 30.9 PG (27.0-31.0) Mean Corpuscular Hemoglobin Concent 33.8 G/DL (32.0-36.0) Red Cell Distribution Width 14.7 % (11.6-14.8) Platelet Count 272 K/UL (150-450) Mean Platelet Volume 5.1 FL (6.5-10.1) L Neutrophils (%) (Auto) 84.0 % (45.0-75.0) H Lymphocytes (%) (Auto) 7.5 % (20.0-45.0) L Monocytes (%) (Auto) 7.1 % (1.0-10.0) Eosinophils (%) (Auto) 1.0 % (0.0-3.0) Basophils (%) (Auto) 0.4 % (0.0-2.0) Sodium Level 136 MMOL/L (136-145) Potassium Level 4.4 MMOL/L (3.5-5.1) Chloride Level 104 MMOL/L (98-107) Carbon Dioxide Level 30 MMOL/L (21-32) Anion Gap 2 mmol/L (5-15) L Blood Urea Nitrogen 11 mg/dL (7-18) Creatinine 0.4 MG/DL (0.55-1.30) L Estimat Glomerular Filtration Rate mL/min (>60) Glucose Level 133 MG/DL (74-106) H Calcium Level 7.9 MG/DL (8.5-10.1) L Zarrabi,Mirali MD Mar 25, 2018 09:54
--- NOTE | 2018-03-25 10:57 | Infectious Diseases Prog Note ---
Assessment/Plan Assessment/Plan Sepsis, resolved 2ry to UTI c/w bacteremia and prob early PNA -u/a wbc tntc, nit neg, luek +3; ucx >100k PsA (R cipro/levo, otherwise S), E. fecalis (S Amp, vanco) -03/06 Bcx 4/ P.mirabiis (R cipro, I Levo; otherwise S), 03/21 MRSE ( contaminant); 03/07 Neg Probable Pneum : -CXR: Subtle patchy opacities in the right upper lung raising question for developing pneumonia. Clinical correlation/follow-up recommended. -influenza sc neg -sp cx MRSA, C. albicans (Colonizer) 03/19/17 - CT C/A/P - Bilateral basilar pneumonia versus atelectasis. Small to moderate left pleural effusion and a small right pleural effusion noted. 03/19/18 UCx - Yeast 03/23/18 CXR - B/L consolidation R>L Low grade fever, SP Leukocytosis - 21 FTT HTN Afib dysphagia HLD Dementia contractures Plan: - Continue flagyl #7, IV Vanco d# 9 and Cefepime # 21 for PNA (Asp PNA?) -03/13 SP IV Vancomycin #7 -03/06 SP Meropenem x1 - f/u Sputum Cx -Monitor CBC/CMP, temperatures -aspiration precautions Subjective Allergies: Coded Allergies: No Known Allergies (Unverified , 03/06/18) Subjective Afebrile On NRB Leukocytosis improving No pressors Objective Vital Signs Last 24 Hour Vital Signs Date Time Temp Pulse Resp B/P (MAP) Pulse Ox O2 Delivery O2 Flow Rate FiO2 03/25/18 10:00 90 21 95/44 (61) 90 03/25/18 09:00 99 98/57 03/25/18 09:00 86 26 111/57 (75) 94 03/25/18 08:00 Non-Rebreather 15.0 03/25/18 08:00 90 03/25/18 08:00 99.6 99 19 98/57 (71) 99 03/25/18 07:26 86 28 95 Venturi Mask 14.0 55 03/25/18 07:13 94 Venturi Mask 14.0 55 03/25/18 07:13 Venturi Mask 14.0 55 03/25/18 07:13 81 25 94 Venturi Mask 14.0 55 03/25/18 07:00 78 20 110/45 (66) 96 03/25/18 06:30 79 20 101/57 (72) 96 03/25/18 06:00 98.4 79 20 100/51 (67) 96 03/25/18 05:30 80 19 107/51 (69) 94 03/25/18 05:25 85 35 93 Full Face 50 03/25/18 05:00 85 19 106/60 (75) 93 03/25/18 04:30 85 19 97/60 (72) 92 03/25/18 04:00 73 03/25/18 04:00 75 19 104/49 (67) 99 03/25/18 04:00 Non-Rebreather 15.0 03/25/18 03:30 78 19 101/51 (68) 100 03/25/18 03:30 76 18 95 Full Face 50 03/25/18 03:00 76 19 106/50 (68) 100 03/25/18 02:30 74 19 102/46 (64) 100 03/25/18 02:00 73 19 101/50 (67) 100 03/25/18 01:56 88 25 99 Bi-pap 70 03/25/18 01:45 80 33 97 Bi-pap 70 03/25/18 01:30 73 19 104/50 (68) 100 03/25/18 01:30 79 25 94 Facial 70 03/25/18 01:00 74 19 102/46 (64) 100 03/25/18 00:30 76 19 106/53 (70) 100 03/25/18 00:00 78 03/25/18 00:00 Non-Rebreather 15.0 03/25/18 00:00 77 19 106/56 (73) 100 03/24/18 23:30 75 19 111/57 (75) 100 03/24/18 23:30 77 24 93 Facial 70 03/24/18 23:00 98.4 79 19 117/70 (86) 100 03/24/18 22:30 77 19 114/55 (74) 100 03/24/18 22:00 81 22 164/73 (103) 100 03/24/18 21:30 79 22 153/76 (101) 100 03/24/18 21:00 79 21 123/60 (81) 97 03/24/18 20:41 82 23 94 Facial 60 03/24/18 20:30 82 24 121/59 (79) 93 03/24/18 20:00 Venturi Mask 14.0 55 03/24/18 20:00 92 Venturi Mask 14.0 55 03/24/18 20:00 Venturi Mask 14.0 55 03/24/18 20:00 82 24 119/65 (83) 97 03/24/18 20:00 79 03/24/18 20:00 Non-Rebreather 15.0 03/24/18 20:00 Venturi Mask 14.0 55 03/24/18 19:30 82 23 124/61 (82) 97 03/24/18 19:00 84 24 129/82 (98) 96 03/24/18 18:30 87 28 142/74 (96) 96 03/24/18 18:19 89 146/78 03/24/18 18:00 88 26 138/99 (112) 96 03/24/18 17:30 84 24 127/62 (83) 94 03/24/18 17:00 82 24 146/66 (92) 94 03/24/18 16:30 83 25 137/80 (99) 95 03/24/18 16:00 Non-Rebreather 15.0 03/24/18 16:00 81 03/24/18 16:00 98.7 84 26 101/56 (71) 96 03/24/18 15:30 82 26 105/58 (74) 96 03/24/18 15:00 82 24 105/58 (74) 96 03/24/18 14:30 82 25 105/58 (74) 96 03/24/18 14:00 85 24 121/63 (82) 97 03/24/18 13:30 82 25 104/55 (71) 97 03/24/18 13:15 85 21 98 Venturi Mask 14.0 55 03/24/18 13:00 84 27 105/54 (71) 98 03/24/18 13:00 85 24 92 Venturi Mask 14.0 55 03/24/18 12:30 83 24 99/52 (68) 95 03/24/18 12:00 Non-Rebreather 15.0 03/24/18 12:00 89 03/24/18 12:00 98.3 83 26 113/65 (81) 95 03/24/18 11:30 81 25 101/55 (70) 95 03/24/18 11:00 83 23 96/62 (73) 95 Height (Feet): 5 Height (Inches): 3.00 Weight (Pounds): 148 Objective General: NAD On NRB HEENT: NCAT, MMM Respiratory: Course B/L Cardiovascular : tachycardia, systolic murmur, irregularly irregular Gastrointestinal: soft, non-distended, colostomy bag in place and PEG Neurologic: non-verbal Microbiology Date/Time Source Procedure Growth Status 03/22/18 15:00 Sputum Induced Gram Stain - Final Resulted 03/22/18 15:00 Sputum Culture - Preliminary Staphylococcus Aureus Gram Negative Bacillus 1 [facility] [employer] [place] Resulted Laboratory Tests Test 03/25/18 06:20 White Blood Count 14.8 K/UL (4.8-10.8) H Red Blood Count 2.60 M/UL (4.20-5.40) L Hemoglobin 8.0 G/DL (12.0-16.0) L Hematocrit 23.7 % (37.0-47.0) L Mean Corpuscular Volume 91 FL (80-99) Mean Corpuscular Hemoglobin 30.9 PG (27.0-31.0) Mean Corpuscular Hemoglobin Concent 33.8 G/DL (32.0-36.0) Red Cell Distribution Width 14.7 % (11.6-14.8) Platelet Count 272 K/UL (150-450) Mean Platelet Volume 5.1 FL (6.5-10.1) L Neutrophils (%) (Auto) 84.0 % (45.0-75.0) H Lymphocytes (%) (Auto) 7.5 % (20.0-45.0) L Monocytes (%) (Auto) 7.1 % (1.0-10.0) Eosinophils (%) (Auto) 1.0 % (0.0-3.0) Basophils (%) (Auto) 0.4 % (0.0-2.0) Sodium Level 136 MMOL/L (136-145) Potassium Level 4.4 MMOL/L (3.5-5.1) Chloride Level 104 MMOL/L (98-107) Carbon Dioxide Level 30 MMOL/L (21-32) Anion Gap 2 mmol/L (5-15) L Blood Urea Nitrogen 11 mg/dL (7-18) Creatinine 0.4 MG/DL (0.55-1.30) L Estimat Glomerular Filtration Rate mL/min (>60) Glucose Level 133 MG/DL (74-106) H Calcium Level 7.9 MG/DL (8.5-10.1) L Current Medications Medications (Trade) Dose Ordered Sig/Cele Route PRN Reason Start Time Stop Time Status Last Admin Dose Admin Acetaminophen (Tylenol) 650 mg Q4H PRN NG fever (temp>100.5F) 03/23/18 17:45 04/17/18 05:44 03/23/18 16:57 Acetylcysteine (Mucomyst) 200 mg Q6HRT HHN 03/23/18 19:00 04/22/18 00:59 03/25/18 07:12 Amiodarone HCl 900 mg/Dextrose 500 ml @ 16.66 mls/ hr Q24H IV 03/24/18 20:30 03/25/18 20:29 03/24/18 21:51 Atenolol (Tenormin) 25 mg BID NG 03/23/18 18:00 04/06/18 08:59 03/24/18 18:19 Chlorhexidine Gluconate (Sahra-Hex 2%) 1 applic DAILY@2000 TOPIC 03/23/18 20:00 04/13/18 19:59 03/24/18 20:47 Dextrose/ Electrolytes 1,000 ml @ 50 mls/hr Q20H IV 03/23/18 17:30 04/09/18 17:29 03/25/18 02:42 Gabapentin (Neurontin) 300 mg THREE TIMES A DAY NG 03/23/18 18:00 04/05/18 17:59 03/25/18 09:13 Ipratropium [place] (Atrovent) 500 mcg Q4H PRN HHN Shortness of Breath 03/23/18 19:00 03/28/18 18:59 03/25/18 07:11 Iron Sucrose 100 mg/Sodium Chloride 60 ml @ 240 mls/hr BEDTIME IV 03/23/18 21:00 03/25/18 21:14 03/24/18 20:48 Levalbuterol HCl (Xopenex) 1.25 mg Q4H PRN HHN Shortness of Breath 03/23/18 19:00 03/28/18 18:59 03/25/18 07:11 Metronidazole (Flagyl) 500 mg Q8HR ORAL 03/23/18 22:00 03/26/18 13:59 03/25/18 06:15 Nitroglycerin (Ntg) 0.4 mg Q5M PRN SL Prn Chest Pain 03/23/18 16:35 04/05/18 17:10 Norepinephrine Bitartrate 4 mg/ Dextrose 250 ml @ 0 mls/hr Q24H IV 03/23/18 18:30 04/22/18 18:29 03/23/18 23:52 Olanzapine (ZyPREXA) 2.5 mg Q6H PRN NG agitation 03/23/18 16:00 04/07/18 15:59 Ondansetron HCl (Zofran) 4 mg Q6H PRN IVP Nausea & Vomiting 03/23/18 16:00 04/05/18 15:59 Polyethylene Glycol (Miralax) 17 gm DAILYPRN PRN NG Constipation 03/23/18 16:00 04/22/18 15:59 Promethazine HCl/ Codeine (Phenergan with Codeine) 5 ml Q4H PRN NG For Cough 03/23/18 17:15 04/05/18 17:11 Sodium Hypochlorite (Dakin's Quarter Strength) 1 applic DAILY TOPIC 03/24/18 09:00 04/13/18 12:29 03/24/18 08:22 Tamsulosin HCl (Flomax) 0.4 mg BEDTIME ORAL 03/23/18 21:00 04/05/18 20:59 03/24/18 20:48 Vancomycin HCl (Vanco rx to dose) 1 ea DAILY PRN MISC Per rx protocol 03/24/18 09:00 04/14/18 10:59 Vancomycin HCl 1 gm/Dextrose 275 ml @ 183.708 mls/hr Q12H IVPB 03/24/18 03:00 03/27/18 14:59 03/25/18 02:49 Pacheco Umana MD Mar 25, 2018 10:57
--- NOTE | 2018-03-25 11:04 | Cardiac Electrophysiology PN ---
Assessment/Plan Status Narrative Technically difficult study due to patient was contracted. Study quality precludes accurate assessment of regional wall motion. Normal left ventricular chamber size, systolic function and wall motion. Left ventricular ejection fraction estimated to be 60-65 %. Mild left ventricular hypertrophy. Small circumferential pericardial effusion. Mild left atrial enlargement. Right cardiac chamber sizes are within normal limits. Aortic valve calcification with decreased cusp excursion c/w aortic stenosis. Mildly thickened mitral valve leaflets with normal excursion. Moderate mitral annulus and aortic root calcification. Normal pulmonic valve structure. Normal tricuspid valve structure. Subcostal views not obtainable due to G tube. Assessment/Plan 1. Atrial fibrillation with rapid ventricular response. Now in multifocal atrial tach. On Atenolol 25 mg bid and change iv amiodarone to po 200 daily. Echo EF 65% 2. Urosepsis. On IV antibiotic per ID. 3. Hypertension, on atenolol. 4. Sacral decubitus ulcer. 5. Dementia. 6. Dysphagia. S/P G-tube placement 03/21/17 KEIRY RN Subjective Subjective In ICU. On iv Amiodarone 0.5 and off Cardizem drip. In SR. Off Levophed Objective Last 24 Hour Vital Signs Date Time Temp Pulse Resp B/P (MAP) Pulse Ox O2 Delivery O2 Flow Rate FiO2 03/25/18 10:00 90 21 95/44 (61) 90 03/25/18 09:00 99 98/57 03/25/18 09:00 86 26 111/57 (75) 94 03/25/18 08:00 Non-Rebreather 15.0 03/25/18 08:00 90 03/25/18 08:00 99.6 99 19 98/57 (71) 99 03/25/18 07:26 86 28 95 Venturi Mask 14.0 55 03/25/18 07:13 94 Venturi Mask 14.0 55 03/25/18 07:13 Venturi Mask 14.0 55 03/25/18 07:13 81 25 94 Venturi Mask 14.0 55 03/25/18 07:00 78 20 110/45 (66) 96 03/25/18 06:30 79 20 101/57 (72) 96 03/25/18 06:00 98.4 79 20 100/51 (67) 96 03/25/18 05:30 80 19 107/51 (69) 94 03/25/18 05:25 85 35 93 Full Face 50 03/25/18 05:00 85 19 106/60 (75) 93 03/25/18 04:30 85 19 97/60 (72) 92 03/25/18 04:00 73 03/25/18 04:00 75 19 104/49 (67) 99 03/25/18 04:00 Non-Rebreather 15.0 03/25/18 03:30 78 19 101/51 (68) 100 03/25/18 03:30 76 18 95 Full Face 50 03/25/18 03:00 76 19 106/50 (68) 100 03/25/18 02:30 74 19 102/46 (64) 100 03/25/18 02:00 73 19 101/50 (67) 100 03/25/18 01:56 88 25 99 Bi-pap 70 03/25/18 01:45 80 33 97 Bi-pap 70 03/25/18 01:30 73 19 104/50 (68) 100 03/25/18 01:30 79 25 94 Facial 70 03/25/18 01:00 74 19 102/46 (64) 100 03/25/18 00:30 76 19 106/53 (70) 100 03/25/18 00:00 78 03/25/18 00:00 Non-Rebreather 15.0 03/25/18 00:00 77 19 106/56 (73) 100 03/24/18 23:30 75 19 111/57 (75) 100 03/24/18 23:30 77 24 93 Facial 70 03/24/18 23:00 98.4 79 19 117/70 (86) 100 03/24/18 22:30 77 19 114/55 (74) 100 03/24/18 22:00 81 22 164/73 (103) 100 03/24/18 21:30 79 22 153/76 (101) 100 03/24/18 21:00 79 21 123/60 (81) 97 03/24/18 20:41 82 23 94 Facial 60 03/24/18 20:30 82 24 121/59 (79) 93 03/24/18 20:00 Venturi Mask 14.0 55 03/24/18 20:00 92 Venturi Mask 14.0 55 03/24/18 20:00 Venturi Mask 14.0 55 03/24/18 20:00 82 24 119/65 (83) 97 03/24/18 20:00 79 03/24/18 20:00 Non-Rebreather 15.0 03/24/18 20:00 Venturi Mask 14.0 55 03/24/18 19:30 82 23 124/61 (82) 97 03/24/18 19:00 84 24 129/82 (98) 96 03/24/18 18:30 87 28 142/74 (96) 96 03/24/18 18:19 89 146/78 03/24/18 18:00 88 26 138/99 (112) 96 03/24/18 17:30 84 24 127/62 (83) 94 03/24/18 17:00 82 24 146/66 (92) 94 03/24/18 16:30 83 25 137/80 (99) 95 03/24/18 16:00 Non-Rebreather 15.0 03/24/18 16:00 81 03/24/18 16:00 98.7 84 26 101/56 (71) 96 03/24/18 15:30 82 26 105/58 (74) 96 03/24/18 15:00 82 24 105/58 (74) 96 03/24/18 14:30 82 25 105/58 (74) 96 03/24/18 14:00 85 24 121/63 (82) 97 03/24/18 13:30 82 25 104/55 (71) 97 03/24/18 13:15 85 21 98 Venturi Mask 14.0 55 03/24/18 13:00 84 27 105/54 (71) 98 03/24/18 13:00 85 24 92 Venturi Mask 14.0 55 03/24/18 12:30 83 24 99/52 (68) 95 03/24/18 12:00 Non-Rebreather 15.0 03/24/18 12:00 89 03/24/18 12:00 98.3 83 26 113/65 (81) 95 03/24/18 11:30 81 25 101/55 (70) 95 Intake and Output 03/24/18 03/25/18 18:59 06:59 Intake Total 1912.326 ml 1648.27 ml Output Total 690 ml 465 ml Balance 1222.326 ml 1183.27 ml Intake Free Water 150 ml 60 ml IV Total 1222.326 ml 1093.27 ml Tube Feeding 540 ml 495 ml Output Urine Total 540 ml 465 ml Stool Total 150 ml # Bowel Movements 3 1 Laboratory Tests Test 03/25/18 06:20 White Blood Count 14.8 K/UL (4.8-10.8) H Red Blood Count 2.60 M/UL (4.20-5.40) L Hemoglobin 8.0 G/DL (12.0-16.0) L Hematocrit 23.7 % (37.0-47.0) L Mean Corpuscular Volume 91 FL (80-99) Mean Corpuscular Hemoglobin 30.9 PG (27.0-31.0) Mean Corpuscular Hemoglobin Concent 33.8 G/DL (32.0-36.0) Red Cell Distribution Width 14.7 % (11.6-14.8) Platelet Count 272 K/UL (150-450) Mean Platelet Volume 5.1 FL (6.5-10.1) L Neutrophils (%) (Auto) 84.0 % (45.0-75.0) H Lymphocytes (%) (Auto) 7.5 % (20.0-45.0) L Monocytes (%) (Auto) 7.1 % (1.0-10.0) Eosinophils (%) (Auto) 1.0 % (0.0-3.0) Basophils (%) (Auto) 0.4 % (0.0-2.0) Sodium Level 136 MMOL/L (136-145) Potassium Level 4.4 MMOL/L (3.5-5.1) Chloride Level 104 MMOL/L (98-107) Carbon Dioxide Level 30 MMOL/L (21-32) Anion Gap 2 mmol/L (5-15) L Blood Urea Nitrogen 11 mg/dL (7-18) Creatinine 0.4 MG/DL (0.55-1.30) L Estimat Glomerular Filtration Rate mL/min (>60) Glucose Level 133 MG/DL (74-106) H Calcium Level 7.9 MG/DL (8.5-10.1) L Microbiology Date/Time Source Procedure Growth Status 03/22/18 15:00 Sputum Induced Gram Stain - Final Resulted 03/22/18 15:00 Sputum Culture - Preliminary Staphylococcus Aureus Gram Negative Bacillus 1 [facility] [employer] [employer] Resulted Objective HEAD AND NECK: No JVD. LUNGS: Coarse rhonchi. CARDIOVASCULAR: Irregular tachy S1 and S2 with no gallop. ABDOMEN: Status post colostomy. GT in place EXTREMITIES: No pitting edema Fredrick Burk MD Mar 25, 2018 11:04
[2018-03-25] MEDS ORDERED: Amiodarone 200mg tab ORAL ONE (11:30)
[2018-03-25] MEDS: Amiodarone 200mg tab ORAL SCH (13:17)
--- NOTE | 2018-03-25 14:43 | Cardiology Report ---
APPROVED REPORT EKG Measurement Heart [id number] VT [id number] Poor data quality, interpretation may be adversely affected sinus tachycaria Low voltage QRS Cannot rule out Anterior infarct, age undetermined Abnormal ECG
--- NOTE | 2018-03-25 16:21 | GI Progress Note ---
Assessment/Plan Problems: (1) Encounter for PEG (percutaneous endoscopic gastrostomy) ICD Codes: Z43.1 - Encounter for attention to gastrostomy SNOMED: 768481417, 755980050 (2) At high risk for aspiration ICD Codes: Z91.89 - Other specified personal risk factors, not elsewhere classified SNOMED: 380401698 (3) Protein-calorie malnutrition, severe ICD Codes: E43 - Unspecified severe protein-calorie malnutrition SNOMED: 768355422 (4) Dysphasia ICD Codes: R47.02 - Dysphasia SNOMED: 76447563 Status: not improved, unchanged Status Narrative Discussed with Dr. Velez Assessment/Plan s/p GT placement GTF and care fu labs Follow-up pulmonary recommendations The patient was seen and examined at bedside and all new and available data was reviewed in the patients chart. I agree with the above findings, impression and plan. (Patient seen earlier today. Signature stamp does not reflect patient encounter time.). - Ernesto Velez MD Subjective Subjective Limited Objective Last 24 Hour Vital Signs Date Time Temp Pulse Resp B/P (MAP) Pulse Ox O2 Delivery O2 Flow Rate FiO2 03/25/18 16:00 98.6 79 19 131/64 (86) 97 03/25/18 16:00 Non-Rebreather 15.0 03/25/18 15:00 86 20 112/56 (74) 97 03/25/18 14:00 83 20 113/47 (69) 97 03/25/18 13:31 90 24 97 Venturi Mask 14.0 55 03/25/18 13:09 86 26 97 Venturi Mask 14.0 55 03/25/18 13:00 88 20 93/56 (68) 99 03/25/18 12:00 Non-Rebreather 15.0 03/25/18 12:00 99.0 88 20 116/54 (74) 96 03/25/18 12:00 88 03/25/18 11:00 101 23 103/51 (68) 95 03/25/18 10:00 90 21 95/44 (61) 90 03/25/18 09:00 99 98/57 03/25/18 09:00 86 26 111/57 (75) 94 03/25/18 08:00 Non-Rebreather 15.0 1/8/19 08:00 90 03/25/18 08:00 99.6 99 19 98/57 (71) 99 03/25/18 07:26 86 28 95 Venturi Mask 14.0 55 03/25/18 07:13 94 Venturi Mask 14.0 55 03/25/18 07:13 Venturi Mask 14.0 55 03/25/18 07:13 81 25 94 Venturi Mask 14.0 55 03/25/18 07:00 78 20 110/45 (66) 96 03/25/18 06:30 79 20 101/57 (72) 96 03/25/18 06:00 98.4 79 20 100/51 (67) 96 03/25/18 05:30 80 19 107/51 (69) 94 03/25/18 05:25 85 35 93 Full Face 50 03/25/18 05:00 85 19 106/60 (75) 93 03/25/18 04:30 85 19 97/60 (72) 92 03/25/18 04:00 73 03/25/18 04:00 75 19 104/49 (67) 99 03/25/18 04:00 Non-Rebreather 15.0 03/25/18 03:30 78 19 101/51 (68) 100 03/25/18 03:30 76 18 95 Full Face 50 03/25/18 03:00 76 19 106/50 (68) 100 03/25/18 02:30 74 19 102/46 (64) 100 03/25/18 02:00 73 19 101/50 (67) 100 03/25/18 01:56 88 25 99 Bi-pap 70 03/25/18 01:45 80 33 97 Bi-pap 70 03/25/18 01:30 73 19 104/50 (68) 100 03/25/18 01:30 79 25 94 Facial 70 03/25/18 01:00 74 19 102/46 (64) 100 03/25/18 00:30 76 19 106/53 (70) 100 03/25/18 00:00 78 03/25/18 00:00 Non-Rebreather 15.0 03/25/18 00:00 77 19 106/56 (73) 100 03/24/18 23:30 75 19 111/57 (75) 100 03/24/18 23:30 77 24 93 Facial 70 03/24/18 23:00 98.4 79 19 117/70 (86) 100 03/24/18 22:30 77 19 114/55 (74) 100 03/24/18 22:00 81 22 164/73 (103) 100 03/24/18 21:30 79 22 153/76 (101) 100 03/24/18 21:00 79 21 123/60 (81) 97 03/24/18 20:41 82 23 94 Facial 60 03/24/18 20:30 82 24 121/59 (79) 93 03/24/18 20:00 Venturi Mask 14.0 55 03/24/18 20:00 92 Venturi Mask 14.0 55 03/24/18 20:00 Venturi Mask 14.0 55 03/24/18 20:00 82 24 119/65 (83) 97 03/24/18 20:00 79 03/24/18 20:00 Non-Rebreather 15.0 03/24/18 20:00 Venturi Mask 14.0 55 03/24/18 19:30 82 23 124/61 (82) 97 03/24/18 19:00 84 24 129/82 (98) 96 03/24/18 18:30 87 28 142/74 (96) 96 03/24/18 18:19 89 146/78 03/24/18 18:00 88 26 138/99 (112) 96 03/24/18 17:30 84 24 127/62 (83) 94 03/24/18 17:00 82 24 146/66 (92) 94 03/24/18 16:30 83 25 137/80 (99) 95 Intake and Output 03/24/18 03/25/18 19:00 07:00 Intake Total 1895.666 ml 1664.93 ml Output Total 670 ml 480 ml Balance 1225.666 ml 1184.93 ml Intake Free Water 150 ml 60 ml IV Total 1205.666 ml 1109.93 ml Tube Feeding 540 ml 495 ml Output Urine Total 520 ml 480 ml Stool Total 150 ml # Bowel Movements 3 1 Laboratory Tests Test 03/25/18 06:20 White Blood Count 14.8 K/UL (4.8-10.8) H Red Blood Count 2.60 M/UL (4.20-5.40) L Hemoglobin 8.0 G/DL (12.0-16.0) L Hematocrit 23.7 % (37.0-47.0) L Mean Corpuscular Volume 91 FL (80-99) Mean Corpuscular Hemoglobin 30.9 PG (27.0-31.0) Mean Corpuscular Hemoglobin Concent 33.8 G/DL (32.0-36.0) Red Cell Distribution Width 14.7 % (11.6-14.8) Platelet Count 272 K/UL (150-450) Mean Platelet Volume 5.1 FL (6.5-10.1) L Neutrophils (%) (Auto) 84.0 % (45.0-75.0) H Lymphocytes (%) (Auto) 7.5 % (20.0-45.0) L Monocytes (%) (Auto) 7.1 % (1.0-10.0) Eosinophils (%) (Auto) 1.0 % (0.0-3.0) Basophils (%) (Auto) 0.4 % (0.0-2.0) Sodium Level 136 MMOL/L (136-145) Potassium Level 4.4 MMOL/L (3.5-5.1) Chloride Level 104 MMOL/L (98-107) Carbon Dioxide Level 30 MMOL/L (21-32) Anion Gap 2 mmol/L (5-15) L Blood Urea Nitrogen 11 mg/dL (7-18) Creatinine 0.4 MG/DL (0.55-1.30) L Estimat Glomerular Filtration Rate mL/min (>60) Glucose Level 133 MG/DL (74-106) H Calcium Level 7.9 MG/DL (8.5-10.1) L Height (Feet): 5 Height (Inches): 3.00 Weight (Pounds): 148 General Appearance: alert, thin Cardiovascular: normal rate Respiratory/Chest: other - Nonrebreather mask Abdominal Exam: GT site - Clean dry and intact Thaddeus Galeana NP Mar 25, 2018 16:21
--- NOTE | 2018-03-25 16:53 | Internal Med Progress Note ---
Subjective Date of Service: Mar 25, 2018 Physician Name Shankar Betts Attending Physician Davian Scott MD Current Medications Medications (Trade) Dose Ordered Sig/Cele Route PRN Reason Start Time Stop Time Status Last Admin Dose Admin Acetaminophen (Tylenol) 650 mg Q4H PRN NG fever (temp>100.5F) 03/23/18 17:45 04/17/18 05:44 03/23/18 16:57 Acetylcysteine (Mucomyst) 200 mg Q6HRT HHN 03/23/18 19:00 04/22/18 00:59 03/25/18 13:07 Amiodarone HCl (Cordarone) 200 mg DAILY ORAL 03/25/18 12:30 04/24/18 12:29 03/25/18 13:17 Atenolol (Tenormin) 25 mg BID NG 03/23/18 18:00 04/06/18 08:59 03/24/18 18:19 Chlorhexidine Gluconate (Sahra-Hex 2%) 1 applic DAILY@2000 TOPIC 03/23/18 20:00 04/13/18 19:59 03/24/18 20:47 Dextrose/ Electrolytes 1,000 ml @ 50 mls/hr Q20H IV 03/23/18 17:30 04/09/18 17:29 03/25/18 02:42 Gabapentin (Neurontin) 300 mg THREE TIMES A DAY NG 03/23/18 18:00 04/05/18 17:59 03/25/18 13:18 Ipratropium Brady (Atrovent) 500 mcg Q4H PRN HHN Shortness of Breath 03/23/18 19:00 03/28/18 18:59 03/25/18 13:07 Iron Sucrose 100 mg/Sodium Chloride 60 ml @ 240 mls/hr BEDTIME IV 03/23/18 21:00 03/25/18 21:14 03/24/18 20:48 Levalbuterol HCl (Xopenex) 1.25 mg Q4H PRN HHN Shortness of Breath 03/23/18 19:00 03/28/18 18:59 03/25/18 07:11 Metronidazole (Flagyl) 500 mg Q8HR ORAL 03/23/18 22:00 03/26/18 13:59 03/25/18 13:17 Nitroglycerin (Ntg) 0.4 mg Q5M PRN SL Prn Chest Pain 03/23/18 16:35 04/05/18 17:10 Norepinephrine Bitartrate 4 mg/ Dextrose 250 ml @ 0 mls/hr Q24H IV 03/23/18 18:30 04/22/18 18:29 03/23/18 23:52 Olanzapine (ZyPREXA) 2.5 mg Q6H PRN NG agitation 03/23/18 16:00 04/07/18 15:59 Ondansetron HCl (Zofran) 4 mg Q6H PRN IVP Nausea & Vomiting 03/23/18 16:00 04/05/18 15:59 Polyethylene Glycol (Miralax) 17 gm DAILYPRN PRN NG Constipation 03/23/18 16:00 04/22/18 15:59 Promethazine HCl/ Codeine (Phenergan with Codeine) 5 ml Q4H PRN NG For Cough 03/23/18 17:15 04/05/18 17:11 Sodium Hypochlorite (Dakin's Quarter Strength) 1 applic DAILY TOPIC 03/24/18 09:00 04/13/18 12:29 03/25/18 09:00 Tamsulosin HCl (Flomax) 0.4 mg BEDTIME ORAL 03/23/18 21:00 04/05/18 20:59 03/24/18 20:48 Vancomycin HCl (Vanco rx to dose) 1 ea DAILY PRN MISC Per rx protocol 03/24/18 09:00 04/14/18 10:59 Vancomycin HCl 1 gm/Dextrose 275 ml @ 183.708 mls/hr Q12H IVPB 03/24/18 03:00 03/27/18 14:59 03/25/18 15:18 Allergies: Coded Allergies: No Known Allergies (Unverified , 03/06/18) ROS Limited/Unobtainable: Yes Subjective 87 YO F admitted with hematuria and gen weakness. Now pyelonephritis respiratory distress and sepsis. Cover for Int Med-Dr Scott. ICU. On levophed ; Tolerating venturi mask Objective Last Vital Signs Date Time Temp Pulse Resp B/P (MAP) Pulse Ox O2 Delivery O2 Flow Rate FiO2 03/25/18 16:00 98.6 79 19 131/64 (86) 97 03/25/18 16:00 Non-Rebreather 15.0 03/25/18 13:31 55 Laboratory Tests Test 03/25/18 06:20 White Blood Count 14.8 K/UL (4.8-10.8) H Red Blood Count 2.60 M/UL (4.20-5.40) L Hemoglobin 8.0 G/DL (12.0-16.0) L Hematocrit 23.7 % (37.0-47.0) L Mean Corpuscular Volume 91 FL (80-99) Mean Corpuscular Hemoglobin 30.9 PG (27.0-31.0) Mean Corpuscular Hemoglobin Concent 33.8 G/DL (32.0-36.0) Red Cell Distribution Width 14.7 % (11.6-14.8) Platelet Count 272 K/UL (150-450) Mean Platelet Volume 5.1 FL (6.5-10.1) L Neutrophils (%) (Auto) 84.0 % (45.0-75.0) H Lymphocytes (%) (Auto) 7.5 % (20.0-45.0) L Monocytes (%) (Auto) 7.1 % (1.0-10.0) Eosinophils (%) (Auto) 1.0 % (0.0-3.0) Basophils (%) (Auto) 0.4 % (0.0-2.0) Sodium Level 136 MMOL/L (136-145) Potassium Level 4.4 MMOL/L (3.5-5.1) Chloride Level 104 MMOL/L (98-107) Carbon Dioxide Level 30 MMOL/L (21-32) Anion Gap 2 mmol/L (5-15) L Blood Urea Nitrogen 11 mg/dL (7-18) Creatinine 0.4 MG/DL (0.55-1.30) L Estimat Glomerular Filtration Rate mL/min (>60) Glucose Level 133 MG/DL (74-106) H Calcium Level 7.9 MG/DL (8.5-10.1) L Intake and Output 03/24/18 03/25/18 19:00 07:00 Intake Total 1895.666 ml 1664.93 ml Output Total 670 ml 480 ml Balance 1225.666 ml 1184.93 ml Intake Free Water 150 ml 60 ml IV Total 1205.666 ml 1109.93 ml Tube Feeding 540 ml 495 ml Output Urine Total 520 ml 480 ml Stool Total 150 ml # Bowel Movements 3 1 Objective PHYSICAL EXAMINATION: GENERAL: The patient is a well-developed and well-nourished white female, in no apparent distress. HEENT: Eyes, pupils are equal and responsive to light and accommodation. Extraocular movements are intact. NECK: Supple without lymphadenopathy. CHEST: crackles and rales at bases; Decreased breath sounds at bilateral bases. Otherwise, clear to auscultation without wheezes or rales. CARDIOVASCULAR: Tachycardic. Regular rate and rhythm. S1, S2 are normal without murmurs, rubs, or gallops. ABDOMEN: Soft, nontender, and nondistended. Positive bowel sounds. No evidence of hepatosplenomegaly. Currently, no rebound or guarding noted. EXTREMITIES: Negative for clubbing, cyanosis, or edema. RECTAL/GENITAL: Deferred. NEUROLOGIC: Cranial nerves II through XII are grossly intact without focal deficits. Assessment/Plan Problem List: (1) Pyelonephritis Assessment & Plan: Pseudamonas and strep. See ID note-Continue cefepime and vanco (2) Sepsis (3) HTN (hypertension) Assessment & Plan: Currently hypotensive (4) Hypercholesteremia (5) Sacral decubitus ulcer, stage IV Assessment & Plan: See surgery note-dr Ramsay (6) Urinary tract infection Assessment & Plan: pseudamonas; continue cefepime per ID (7) Pneumonia Assessment & Plan: New RLL. Previously MRSA. Continue vanco per ID (8) Atrial fibrillation with RVR Assessment & Plan: Sinus. Continue amiodrone per cardiology (9) Respiratory distress Assessment & Plan: On non rebreather mask Status: progressing Shankar Betts MD Mar 25, 2018 16:53
[2018-03-25] MEDS: Dyna-Hex 2% Top Sol 2oz TOPIC SCH (20:01)
[2018-03-25] MEDS: Tamsulosin 0.4mg cap ORAL SCH (21:00)
[2018-03-25] MEDS: Iron Sucrose 100 MG in NS 55 ML IV SCH (21:02)
--- NOTE | 2018-03-25 22:34 | General Progress Note ---
Assessment/Plan Assessment/Plan Zyprexa prn recommend palliative care/hospice the pt lacks capacity to make decisions. Ativan prn The son is not calling back to our phone calls Subjective Allergies: Coded Allergies: No Known Allergies (Unverified , 03/06/18) Subjective confused decrease episodes of agitation. the pt is the same dystonic Objective Last 24 Hour Vital Signs Date Time Temp Pulse Resp B/P (MAP) Pulse Ox O2 Delivery O2 Flow Rate FiO2 03/25/18 20:20 95 22 99 Venturi Mask 14.0 55 03/25/18 20:08 98 Venturi Mask 14.0 55 03/25/18 20:08 Venturi Mask 14.0 55 03/25/18 20:08 87 19 98 Venturi Mask 14.0 55 03/25/18 20:00 Non-Rebreather 15.0 03/25/18 20:00 91 03/25/18 20:00 99.7 83 20 97/47 (64) 98 03/25/18 19:00 83 20 104/49 (67) 98 03/25/18 18:00 84 22 105/49 (67) 98 03/25/18 17:56 83 105/50 03/25/18 17:32 111/47 03/25/18 17:00 81 20 111/47 (68) 97 03/25/18 16:00 98.6 79 19 131/64 (86) 97 03/25/18 16:00 Non-Rebreather 15.0 03/25/18 16:00 85 03/25/18 15:00 86 20 112/56 (74) 97 03/25/18 14:00 83 20 113/47 (69) 97 03/25/18 13:31 90 24 97 Venturi Mask 14.0 55 03/25/18 13:09 86 26 97 Venturi Mask 14.0 55 03/25/18 13:00 88 20 93/56 (68) 99 03/25/18 12:00 Non-Rebreather 15.0 03/25/18 12:00 99.0 88 20 116/54 (74) 96 03/25/18 12:00 88 03/25/18 11:00 101 23 103/51 (68) 95 03/25/18 10:00 90 21 95/44 (61) 90 1/8/19 09:00 99 98/57 03/25/18 09:00 86 26 111/57 (75) 94 03/25/18 08:00 Non-Rebreather 15.0 03/25/18 08:00 90 03/25/18 08:00 99.6 99 19 98/57 (71) 99 03/25/18 07:26 86 28 95 Venturi Mask 14.0 55 03/25/18 07:13 94 Venturi Mask 14.0 55 03/25/18 07:13 Venturi Mask 14.0 55 03/25/18 07:13 81 25 94 Venturi Mask 14.0 55 03/25/18 07:00 78 20 110/45 (66) 96 03/25/18 06:30 79 20 101/57 (72) 96 03/25/18 06:00 98.4 79 20 100/51 (67) 96 03/25/18 05:30 80 19 107/51 (69) 94 03/25/18 05:25 85 35 93 Full Face 50 03/25/18 05:00 85 19 106/60 (75) 93 03/25/18 04:30 85 19 97/60 (72) 92 03/25/18 04:00 73 03/25/18 04:00 75 19 104/49 (67) 99 03/25/18 04:00 Non-Rebreather 15.0 03/25/18 03:30 78 19 101/51 (68) 100 03/25/18 03:30 76 18 95 Full Face 50 03/25/18 03:00 76 19 106/50 (68) 100 03/25/18 02:30 74 19 102/46 (64) 100 03/25/18 02:00 73 19 101/50 (67) 100 03/25/18 01:56 88 25 99 Bi-pap 70 03/25/18 01:45 80 33 97 Bi-pap 70 03/25/18 01:30 73 19 104/50 (68) 100 03/25/18 01:30 79 25 94 Facial 70 03/25/18 01:00 74 19 102/46 (64) 100 03/25/18 00:30 76 19 106/53 (70) 100 03/25/18 00:00 78 03/25/18 00:00 Non-Rebreather 15.0 03/25/18 00:00 77 19 106/56 (73) 100 03/24/18 23:30 75 19 111/57 (75) 100 03/24/18 23:30 77 24 93 Facial 70 03/24/18 23:00 98.4 79 19 117/70 (86) 100 Intake and Output 03/24/18 03/25/18 19:00 07:00 Intake Total 1895.666 ml 1664.93 ml Output Total 670 ml 480 ml Balance 1225.666 ml 1184.93 ml Intake Free Water 150 ml 60 ml IV Total 1205.666 ml 1109.93 ml Tube Feeding 540 ml 495 ml Output Urine Total 520 ml 480 ml Stool Total 150 ml # Bowel Movements 3 1 Laboratory Tests 03/25/18 06:20: White Blood Count 14.8H, Red Blood Count 2.60L, Hemoglobin 8.0L, Hematocrit 23.7L, Mean Corpuscular Volume 91, Mean Corpuscular Hemoglobin 30.9, Mean Corpuscular Hemoglobin Concent 33.8, Red Cell Distribution Width 14.7, Platelet Count 272, Mean Platelet Volume 5.1L, Neutrophils (%) (Auto) 84.0H, Lymphocytes (%) (Auto) 7.5L, Monocytes (%) (Auto) 7.1, Eosinophils (%) (Auto) 1.0, Basophils (%) (Auto) 0.4, Sodium Level 136, Potassium Level 4.4, Chloride Level 104, Carbon Dioxide Level 30, Anion Gap 2L, Blood Urea Nitrogen 11, Creatinine 0.4L, Estimat Glomerular Filtration Rate , Glucose Level 133H, Calcium Level 7.9L Height (Feet): 5 Height (Inches): 3.00 Weight (Pounds): 148 General Appearance: lethargic, confused Bj Martinez MD Mar 25, 2018 22:34
[2018-03-26] VITALS (24 sets, daily range): BP systolic 88–125; BP diastolic 37–68
[2018-03-26] MEDS: Ipratropium 0.02% Inh Soln 2.5ml UD HHN PRN ×4 (01:47→18:57)
[2018-03-26] MEDS: Levalbuterol Inh UD 1.25mg/0.5ml HHN PRN ×3 (01:48→18:57)
[2018-03-26] MEDS: Acetylcysteine 20% Soln 4ml HHN SCH ×4 (01:48→18:58)
[2018-03-26] MEDS: D5 1/2NS w/KCL 10meq 1,000 ML IV SCH (03:39)
[2018-03-26] MEDS: Vancomycin 1 GM in D5W 275 ML IVPB SCH ×2 (03:39→15:00)
[2018-03-26] MEDS: metroNIDAZOLE 500mg tab ORAL SCH (06:04)
[2018-03-26 07:38] LABS: BASOPHILS % (AUTO) 0.5 % (0.0-2.0); EOSINOPHILS % (AUTO) 0.5 % (0.0-3.0); HEMOGLOBIN 9.3 G/DL (12.0-16.0); LYMPHOCYTES % (AUTO) 12.5 % (20.0-45.0); MEAN CORPUSCULAR VOLUME 93 FL (80-99); MONOCYTES % (AUTO) 7.9 % (1.0-10.0); NEUTROPHILS % (AUTO) 78.6 % (45.0-75.0); PLATELET COUNT 314 K/UL (150-450); RED BLOOD COUNT 3.02 M/UL (4.20-5.40); RED CELL DISTRIBUTION WIDTH 14.9 % (11.6-14.8); WHITE BLOOD COUNT 13.7 K/UL (4.8-10.8)
[2018-03-26 07:58] LABS: ALANINE AMINOTRANSFERASE 17 U/L (12-78); ALBUMIN 1.2 G/DL (3.4-5.0); ALBUMIN/GLOBULIN RATIO 0.3 (1.0-2.7); ALKALINE PHOSPHATASE 140 U/L (46-116); ANION GAP 4 mmol/L (5-15); ASPARTATE AMINO TRANSFERASE 19 U/L (15-37); BILIRUBIN,TOTAL 0.3 MG/DL (0.2-1.0); BLOOD UREA NITROGEN 11 mg/dL (7-18); CALCIUM 8.2 MG/DL (8.5-10.1); CARBON DIOXIDE 30 MMOL/L (21-32); CHLORIDE 103 MMOL/L (98-107); CREATININE 0.6 MG/DL (0.55-1.30); POTASSIUM 4.5 MMOL/L (3.5-5.1); SODIUM 136 MMOL/L (136-145)
[2018-03-26] MEDS: Atenolol 25mg tab NG SCH (09:00)
[2018-03-26] MEDS: Amiodarone 200mg tab ORAL SCH (09:17)
[2018-03-26] MEDS: Dakin's 0.125% Soln (Quarter Strength) 16oz TOPIC SCH (09:18)
--- NOTE | 2018-03-26 10:25 | Pulmonolgy Critical Care Note ---
Critical Care - Asmt/Plan Problems: (1) Respiratory distress (2) Pneumonia (3) Sacral decubitus ulcer, stage IV (4) Protein-calorie malnutrition, severe (5) At high risk for aspiration Respiratory: monitor respiratory rate, adjust FIO2, CXR Cardiac: continue to monitor HR/BP Renal: F/U I&O, keep IV fluid Infectious Disease: check cultures, continue antibiotics Gastrointestinal: continue feedings/current rate Endocrine: monitor blood sugar Hematologic: monitor H/H, transfuse if hgb<8.5 Neurologic: PRN Morphine, keep patient comfortable Affect: PRN ativan Prophylaxis: Protonix Time Spent (Minutes): 40 Discussed with: consultants, 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 - Objective Last 24 Hour Vital Signs Date Time Temp Pulse Resp B/P (MAP) Pulse Ox O2 Delivery O2 Flow Rate FiO2 03/26/18 09:00 108 108/55 03/26/18 07:00 98 20 115/60 (78) 98 03/26/18 06:55 98 23 100 Venturi Mask 14.0 55 03/26/18 06:54 Venturi Mask 14.0 55 03/26/18 06:54 99 Venturi Mask 14.0 55 03/26/18 06:50 95 23 99 Venturi Mask 14.0 55 03/26/18 06:00 105 20 105/54 (71) 98 03/26/18 05:00 93 20 93/56 (68) 98 03/26/18 04:00 Non-Rebreather 15.0 03/26/18 04:00 98.6 107 20 106/45 (65) 98 03/26/18 04:00 104 03/26/18 03:00 105 20 115/50 (71) 98 03/26/18 02:01 96 21 98 Venturi Mask 14.0 55 03/26/18 02:00 114 20 104/52 (69) 98 03/26/18 01:48 96 27 97 Venturi Mask 14.0 55 03/26/18 01:00 85 20 104/56 (72) 98 03/26/18 00:00 99.0 85 20 101/37 (58) 98 03/26/18 00:00 89 03/26/18 00:00 Non-Rebreather 15.0 03/25/18 23:00 77 20 100/32 (54) 98 03/25/18 22:00 77 20 106/44 (64) 98 03/25/18 21:00 81 20 94/52 (66) 98 03/25/18 20:20 95 22 99 Venturi Mask 14.0 55 03/25/18 20:08 98 Venturi Mask 14.0 55 03/25/18 20:08 Venturi Mask 14.0 55 03/25/18 20:08 87 19 98 Venturi Mask 14.0 55 03/25/18 20:00 Non-Rebreather 15.0 03/25/18 20:00 91 03/25/18 20:00 99.7 83 20 97/47 (64) 98 03/25/18 19:00 83 20 104/49 (67) 98 03/25/18 18:00 84 22 105/49 (67) 98 03/25/18 17:56 83 105/50 03/25/18 17:32 111/47 03/25/18 17:00 81 20 111/47 (68) 97 03/25/18 16:00 98.6 79 19 131/64 (86) 97 03/25/18 16:00 Non-Rebreather 15.0 03/25/18 16:00 85 03/25/18 15:00 86 20 112/56 (74) 97 03/25/18 14:00 83 20 113/47 (69) 97 03/25/18 13:31 90 24 97 Venturi Mask 14.0 55 03/25/18 13:09 86 26 97 Venturi Mask 14.0 55 03/25/18 13:00 88 20 93/56 (68) 99 03/25/18 12:00 Non-Rebreather 15.0 03/25/18 12:00 99.0 88 20 116/54 (74) 96 03/25/18 12:00 88 03/25/18 11:00 101 23 103/51 (68) 95 Status: awake Condition: critical HEENT: atraumatic Lungs: rales, rhonchi Heart: HR/BP stable Abdomen: soft Extremities: no C/C/E Micro: Microbiology Date/Time Source Procedure Growth Status 03/24/18 12:55 Blood Blood Culture - Preliminary NO GROWTH AFTER 24 HOURS Resulted 03/24/18 12:27 Blood Blood Culture - Preliminary NO GROWTH AFTER 24 HOURS Resulted Accucheck: 111 Critical Care - Subjective ROS Limited/Unobtainable: No Condition: critical, improving EKG Rhythm: Sinus Rhythm FI02: 55 Sputum Amount: None Tube Feeding Amount: 45 I&O: Intake and Output 03/25/18 03/26/18 18:59 06:59 Intake Total 1240.368 ml 1085 ml Output Total 475 ml 880 ml Balance 765.368 ml 205 ml Intake Free Water 200 ml IV Total 700.368 ml 300 ml Tube Feeding 540 ml 585 ml Output Urine Total 375 ml 680 ml Stool Total 100 ml 200 ml Labs: Laboratory Tests Test 03/26/18 05:10 White Blood Count 13.7 K/UL (4.8-10.8) H Red Blood Count 3.02 M/UL (4.20-5.40) L Hemoglobin 9.3 G/DL (12.0-16.0) L Hematocrit 28.0 % (37.0-47.0) L Mean Corpuscular Volume 93 FL (80-99) Mean Corpuscular Hemoglobin 30.7 PG (27.0-31.0) Mean Corpuscular Hemoglobin Concent 33.1 G/DL (32.0-36.0) Red Cell Distribution Width 14.9 % (11.6-14.8) H Platelet Count 314 K/UL (150-450) Mean Platelet Volume 5.0 FL (6.5-10.1) L Neutrophils (%) (Auto) 78.6 % (45.0-75.0) H Lymphocytes (%) (Auto) 12.5 % (20.0-45.0) L Monocytes (%) (Auto) 7.9 % (1.0-10.0) Eosinophils (%) (Auto) 0.5 % (0.0-3.0) Basophils (%) (Auto) 0.5 % (0.0-2.0) Sodium Level 136 MMOL/L (136-145) Potassium Level 4.5 MMOL/L (3.5-5.1) Chloride Level 103 MMOL/L (98-107) Carbon Dioxide Level 30 MMOL/L (21-32) Anion Gap 4 mmol/L (5-15) L Blood Urea Nitrogen 11 mg/dL (7-18) Creatinine 0.6 MG/DL (0.55-1.30) Estimat Glomerular Filtration Rate mL/min (>60) Glucose Level 128 MG/DL (74-106) H Calcium Level 8.2 MG/DL (8.5-10.1) L Total Bilirubin 0.3 MG/DL (0.2-1.0) Aspartate Amino Transf (AST/SGOT) 19 U/L (15-37) Alanine Aminotransferase (ALT/SGPT) 17 U/L (12-78) Alkaline Phosphatase 140 U/L (46-116) H Pro-B-Type Natriuretic Peptide 2482 pg/mL (0-125) H Total Protein 4.9 G/DL (6.4-8.2) L Albumin 1.2 G/DL (3.4-5.0) L Globulin 3.7 g/dL Albumin/Globulin Ratio 0.3 (1.0-2.7) L Rishi Gutierrez MD Mar 26, 2018 10:25
--- NOTE | 2018-03-26 10:37 | Infectious Diseases Prog Note ---
Assessment/Plan Assessment/Plan Sepsis, resolved 2ry to UTI c/w bacteremia and prob early PNA -u/a wbc tntc, nit neg, luek +3; ucx >100k PsA (R cipro/levo, otherwise S), E. fecalis (S Amp, vanco) -03/06 Bcx 4/ P.mirabiis (R cipro, I Levo; otherwise S), 03/21 MRSE ( contaminant); 03/07 Neg Probable Pneum : -CXR: Subtle patchy opacities in the right upper lung raising question for developing pneumonia. Clinical correlation/follow-up recommended. -influenza sc neg -sp cx MRSA, C. albicans (Colonizer) 03/19/17 - CT C/A/P - Bilateral basilar pneumonia versus atelectasis. Small to moderate left pleural effusion and a small right pleural effusion noted. 03/19/18 UCx - Yeast 03/23/18 CXR - B/L consolidation R>L Low grade fever, SP Leukocytosis - 21 FTT HTN Afib dysphagia HLD Dementia contractures Plan: - Continue flagyl #7, IV Vanco d# 10 and Cefepime # 22 for PNA (Asp PNA?) -03/13 SP IV Vancomycin #7 -03/06 SP Meropenem x1 - f/u Sputum Cx -Monitor CBC/CMP, temperatures -aspiration precautions Subjective Allergies: Coded Allergies: No Known Allergies (Unverified , 03/06/18) Subjective Opens eyes Afebrile On NRB Leukocytosis improving No pressors Objective Vital Signs Last 24 Hour Vital Signs Date Time Temp Pulse Resp B/P (MAP) Pulse Ox O2 Delivery O2 Flow Rate FiO2 03/26/18 09:00 108 108/55 03/26/18 07:00 98 20 115/60 (78) 98 03/26/18 06:55 98 23 100 Venturi Mask 14.0 55 03/26/18 06:54 Venturi Mask 14.0 55 03/26/18 06:54 99 Venturi Mask 14.0 55 03/26/18 06:50 95 23 99 Venturi Mask 14.0 55 03/26/18 06:00 105 20 105/54 (71) 98 03/26/18 05:00 93 20 93/56 (68) 98 03/26/18 04:00 Non-Rebreather 15.0 03/26/18 04:00 98.6 107 20 106/45 (65) 98 03/26/18 04:00 104 03/26/18 03:00 105 20 115/50 (71) 98 03/26/18 02:01 96 21 98 Venturi Mask 14.0 55 03/26/18 02:00 114 20 104/52 (69) 98 03/26/18 01:48 96 27 97 Venturi Mask 14.0 55 03/26/18 01:00 85 20 104/56 (72) 98 03/26/18 00:00 99.0 85 20 101/37 (58) 98 03/26/18 00:00 89 03/26/18 00:00 Non-Rebreather 15.0 03/25/18 23:00 77 20 100/32 (54) 98 03/25/18 22:00 77 20 106/44 (64) 98 03/25/18 21:00 81 20 94/52 (66) 98 03/25/18 20:20 95 22 99 Venturi Mask 14.0 55 03/25/18 20:08 98 Venturi Mask 14.0 55 03/25/18 20:08 Venturi Mask 14.0 55 03/25/18 20:08 87 19 98 Venturi Mask 14.0 55 03/25/18 20:00 Non-Rebreather 15.0 03/25/18 20:00 91 03/25/18 20:00 99.7 83 20 97/47 (64) 98 03/25/18 19:00 83 20 104/49 (67) 98 03/25/18 18:00 84 22 105/49 (67) 98 03/25/18 17:56 83 105/50 03/25/18 17:32 111/47 03/25/18 17:00 81 20 111/47 (68) 97 03/25/18 16:00 98.6 79 19 131/64 (86) 97 03/25/18 16:00 Non-Rebreather 15.0 03/25/18 16:00 85 03/25/18 15:00 86 20 112/56 (74) 97 03/25/18 14:00 83 20 113/47 (69) 97 03/25/18 13:31 90 24 97 Venturi Mask 14.0 55 03/25/18 13:09 86 26 97 Venturi Mask 14.0 55 03/25/18 13:00 88 20 93/56 (68) 99 03/25/18 12:00 Non-Rebreather 15.0 03/25/18 12:00 99.0 88 20 116/54 (74) 96 03/25/18 12:00 88 03/25/18 11:00 101 23 103/51 (68) 95 Height (Feet): 5 Height (Inches): 3.00 Weight (Pounds): 150 Objective General: NAD, On NRB HEENT: NCAT, MMM Respiratory: Course B/L, No W Cardiovascular : tachycardia, systolic murmur, irregularly irregular Gastrointestinal: soft, non-distended, colostomy bag in place and PEG Neurologic: non-verbal Microbiology Date/Time Source Procedure Growth Status 03/24/18 12:55 Blood Blood Culture - Preliminary NO GROWTH AFTER 24 HOURS Resulted 03/24/18 12:27 Blood Blood Culture - Preliminary NO GROWTH AFTER 24 HOURS Resulted Laboratory Tests Test 03/26/18 05:10 White Blood Count 13.7 K/UL (4.8-10.8) H Red Blood Count 3.02 M/UL (4.20-5.40) L Hemoglobin 9.3 G/DL (12.0-16.0) L Hematocrit 28.0 % (37.0-47.0) L Mean Corpuscular Volume 93 FL (80-99) Mean Corpuscular Hemoglobin 30.7 PG (27.0-31.0) Mean Corpuscular Hemoglobin Concent 33.1 G/DL (32.0-36.0) Red Cell Distribution Width 14.9 % (11.6-14.8) H Platelet Count 314 K/UL (150-450) Mean Platelet Volume 5.0 FL (6.5-10.1) L Neutrophils (%) (Auto) 78.6 % (45.0-75.0) H Lymphocytes (%) (Auto) 12.5 % (20.0-45.0) L Monocytes (%) (Auto) 7.9 % (1.0-10.0) Eosinophils (%) (Auto) 0.5 % (0.0-3.0) Basophils (%) (Auto) 0.5 % (0.0-2.0) Sodium Level 136 MMOL/L (136-145) Potassium Level 4.5 MMOL/L (3.5-5.1) Chloride Level 103 MMOL/L (98-107) Carbon Dioxide Level 30 MMOL/L (21-32) Anion Gap 4 mmol/L (5-15) L Blood Urea Nitrogen 11 mg/dL (7-18) Creatinine 0.6 MG/DL (0.55-1.30) Estimat Glomerular Filtration Rate mL/min (>60) Glucose Level 128 MG/DL (74-106) H Calcium Level 8.2 MG/DL (8.5-10.1) L Total Bilirubin 0.3 MG/DL (0.2-1.0) Aspartate Amino Transf (AST/SGOT) 19 U/L (15-37) Alanine Aminotransferase (ALT/SGPT) 17 U/L (12-78) Alkaline Phosphatase 140 U/L (46-116) H Pro-B-Type Natriuretic Peptide 2482 pg/mL (0-125) H Total Protein 4.9 G/DL (6.4-8.2) L Albumin 1.2 G/DL (3.4-5.0) L Globulin 3.7 g/dL Albumin/Globulin Ratio 0.3 (1.0-2.7) L Current Medications Medications (Trade) Dose Ordered Sig/Cele Route PRN Reason Start Time Stop Time Status Last Admin Dose Admin Acetaminophen (Tylenol) 650 mg Q4H PRN NG fever (temp>100.5F) 03/23/18 17:45 04/17/18 05:44 03/23/18 16:57 Acetylcysteine (Mucomyst) 200 mg Q6HRT HHN 03/23/18 19:00 04/22/18 00:59 03/26/18 06:54 Amiodarone HCl (Cordarone) 200 mg DAILY ORAL 03/25/18 12:30 04/24/18 12:29 03/26/18 09:17 Atenolol (Tenormin) 25 mg BID NG 03/23/18 18:00 04/06/18 08:59 03/24/18 18:19 Chlorhexidine Gluconate (Sahra-Hex 2%) 1 applic DAILY@2000 TOPIC 03/23/18 20:00 04/13/18 19:59 03/25/18 20:01 Dextrose/ Electrolytes 1,000 ml @ 50 mls/hr Q20H IV 03/23/18 17:30 04/09/18 17:29 03/26/18 03:39 Gabapentin (Neurontin) 300 mg THREE TIMES A DAY NG 03/23/18 18:00 04/05/18 17:59 03/26/18 09:18 Ipratropium [place] (Atrovent) 500 mcg Q4H PRN HHN Shortness of Breath 03/23/18 19:00 03/28/18 18:59 03/26/18 06:53 Levalbuterol HCl (Xopenex) 1.25 mg Q4H PRN HHN Shortness of Breath 03/23/18 19:00 03/28/18 18:59 03/26/18 06:53 Metronidazole (Flagyl) 500 mg Q8HR ORAL 03/23/18 22:00 03/26/18 13:59 03/26/18 06:04 Nitroglycerin (Ntg) 0.4 mg Q5M PRN SL Prn Chest Pain 03/23/18 16:35 04/05/18 17:10 Norepinephrine Bitartrate 4 mg/ Dextrose 250 ml @ 0 mls/hr Q24H IV 03/23/18 18:30 04/22/18 18:29 03/23/18 23:52 Olanzapine (ZyPREXA) 2.5 mg Q6H PRN NG agitation 03/23/18 16:00 04/07/18 15:59 Ondansetron HCl (Zofran) 4 mg Q6H PRN IVP Nausea & Vomiting 03/23/18 16:00 04/05/18 15:59 Polyethylene Glycol (Miralax) 17 gm DAILYPRN PRN NG Constipation 03/23/18 16:00 04/22/18 15:59 Promethazine HCl/ Codeine (Phenergan with Codeine) 5 ml Q4H PRN NG For Cough 03/23/18 17:15 04/05/18 17:11 Sodium Hypochlorite (Dakin's Quarter Strength) 1 applic DAILY TOPIC 03/24/18 09:00 04/13/18 12:29 03/26/18 09:18 Tamsulosin HCl (Flomax) 0.4 mg BEDTIME ORAL 03/23/18 21:00 04/05/18 20:59 03/25/18 21:00 Vancomycin HCl (Vanco rx to dose) 1 ea DAILY PRN MISC Per rx protocol 03/24/18 09:00 04/14/18 10:59 Vancomycin HCl 1 gm/Dextrose 275 ml @ 183.708 mls/hr Q12H IVPB 03/24/18 03:00 03/27/18 14:59 03/26/18 03:39 Pacheco Umana MD Mar 26, 2018 10:37
--- NOTE | 2018-03-26 12:02 | GI Progress Note ---
Assessment/Plan Problems: (1) Encounter for PEG (percutaneous endoscopic gastrostomy) ICD Codes: Z43.1 - Encounter for attention to gastrostomy SNOMED: 822586296, 336086470 (2) At high risk for aspiration ICD Codes: Z91.89 - Other specified personal risk factors, not elsewhere classified SNOMED: 755437183 (3) Protein-calorie malnutrition, severe ICD Codes: E43 - Unspecified severe protein-calorie malnutrition SNOMED: 681791049 (4) Dysphasia ICD Codes: R47.02 - Dysphasia SNOMED: 37015151 Status: stable Status Narrative Discussed with Dr. Velez. Assessment/Plan s/p GT placement GTF and care fu labs Follow-up pulmonary recommendations The patient was seen and examined at bedside and all new and available data was reviewed in the patients chart. I agree with the above findings, impression and plan. (Patient seen earlier today. Signature stamp does not reflect patient encounter time.). - Ernesto Velez MD Subjective Subjective Limited Objective Last 24 Hour Vital Signs Date Time Temp Pulse Resp B/P (MAP) Pulse Ox O2 Delivery O2 Flow Rate FiO2 03/26/18 11:00 98.8 104 33 118/68 (85) 98 03/26/18 10:00 108 30 115/66 (82) 100 03/26/18 09:00 104 30 111/63 (79) 100 03/26/18 09:00 108 108/55 03/26/18 08:00 Non-Rebreather 15.0 03/26/18 08:00 104 03/26/18 08:00 112 30 105/55 (72) 98 03/26/18 07:00 98 20 115/60 (78) 98 03/26/18 06:55 98 23 100 Venturi Mask 14.0 55 03/26/18 06:54 Venturi Mask 14.0 55 03/26/18 06:54 99 Venturi Mask 14.0 55 03/26/18 06:50 95 23 99 Venturi Mask 14.0 55 03/26/18 06:00 105 20 105/54 (71) 98 03/26/18 05:00 93 20 93/56 (68) 98 03/26/18 04:00 Non-Rebreather 15.0 03/26/18 04:00 98.6 107 20 106/45 (65) 98 1/9/19 04:00 104 03/26/18 03:00 105 20 115/50 (71) 98 03/26/18 02:01 96 21 98 Venturi Mask 14.0 55 03/26/18 02:00 114 20 104/52 (69) 98 03/26/18 01:48 96 27 97 Venturi Mask 14.0 55 03/26/18 01:00 85 20 104/56 (72) 98 03/26/18 00:00 99.0 85 20 101/37 (58) 98 03/26/18 00:00 89 03/26/18 00:00 Non-Rebreather 15.0 03/25/18 23:00 77 20 100/32 (54) 98 03/25/18 22:00 77 20 106/44 (64) 98 03/25/18 21:00 81 20 94/52 (66) 98 03/25/18 20:20 95 22 99 Venturi Mask 14.0 55 03/25/18 20:08 98 Venturi Mask 14.0 55 03/25/18 20:08 Venturi Mask 14.0 55 03/25/18 20:08 87 19 98 Venturi Mask 14.0 55 03/25/18 20:00 Non-Rebreather 15.0 03/25/18 20:00 91 03/25/18 20:00 99.7 83 20 97/47 (64) 98 03/25/18 19:00 83 20 104/49 (67) 98 03/25/18 18:00 84 22 105/49 (67) 98 03/25/18 17:56 83 105/50 03/25/18 17:32 111/47 03/25/18 17:00 81 20 111/47 (68) 97 03/25/18 16:00 98.6 79 19 131/64 (86) 97 03/25/18 16:00 Non-Rebreather 15.0 03/25/18 16:00 85 03/25/18 15:00 86 20 112/56 (74) 97 03/25/18 14:00 83 20 113/47 (69) 97 03/25/18 13:31 90 24 97 Venturi Mask 14.0 55 03/25/18 13:09 86 26 97 Venturi Mask 14.0 55 03/25/18 13:00 88 20 93/56 (68) 99 Intake and Output 03/25/18 03/26/18 18:59 06:59 Intake Total 1240.368 ml 1085 ml Output Total 475 ml 880 ml Balance 765.368 ml 205 ml Intake Free Water 200 ml IV Total 700.368 ml 300 ml Tube Feeding 540 ml 585 ml Output Urine Total 375 ml 680 ml Stool Total 100 ml 200 ml Laboratory Tests Test 03/26/18 05:10 White Blood Count 13.7 K/UL (4.8-10.8) H Red Blood Count 3.02 M/UL (4.20-5.40) L Hemoglobin 9.3 G/DL (12.0-16.0) L Hematocrit 28.0 % (37.0-47.0) L Mean Corpuscular Volume 93 FL (80-99) Mean Corpuscular Hemoglobin 30.7 PG (27.0-31.0) Mean Corpuscular Hemoglobin Concent 33.1 G/DL (32.0-36.0) Red Cell Distribution Width 14.9 % (11.6-14.8) H Platelet Count 314 K/UL (150-450) Mean Platelet Volume 5.0 FL (6.5-10.1) L Neutrophils (%) (Auto) 78.6 % (45.0-75.0) H Lymphocytes (%) (Auto) 12.5 % (20.0-45.0) L Monocytes (%) (Auto) 7.9 % (1.0-10.0) Eosinophils (%) (Auto) 0.5 % (0.0-3.0) Basophils (%) (Auto) 0.5 % (0.0-2.0) Sodium Level 136 MMOL/L (136-145) Potassium Level 4.5 MMOL/L (3.5-5.1) Chloride Level 103 MMOL/L (98-107) Carbon Dioxide Level 30 MMOL/L (21-32) Anion Gap 4 mmol/L (5-15) L Blood Urea Nitrogen 11 mg/dL (7-18) Creatinine 0.6 MG/DL (0.55-1.30) Estimat Glomerular Filtration Rate mL/min (>60) Glucose Level 128 MG/DL (74-106) H Calcium Level 8.2 MG/DL (8.5-10.1) L Total Bilirubin 0.3 MG/DL (0.2-1.0) Aspartate Amino Transf (AST/SGOT) 19 U/L (15-37) Alanine Aminotransferase (ALT/SGPT) 17 U/L (12-78) Alkaline Phosphatase 140 U/L (46-116) H Pro-B-Type Natriuretic Peptide 2482 pg/mL (0-125) H Total Protein 4.9 G/DL (6.4-8.2) L Albumin 1.2 G/DL (3.4-5.0) L Globulin 3.7 g/dL Albumin/Globulin Ratio 0.3 (1.0-2.7) L Height (Feet): 5 Height (Inches): 3.00 Weight (Pounds): 150 General Appearance: no apparent distress Cardiovascular: normal rate Respiratory/Chest: normal breath sounds, no respiratory distress Abdominal Exam: normal bowel sounds, non tender, soft Extremities: non-tender Thaddeus Galeana NP Mar 26, 2018 12:02
--- NOTE | 2018-03-26 12:54 | Internal Med Progress Note ---
Subjective Date of Service: Mar 26, 2018 Physician Name Shankar Betts Attending Physician Davian Scott MD Current Medications Medications (Trade) Dose Ordered Sig/Cele Route PRN Reason Start Time Stop Time Status Last Admin Dose Admin Acetaminophen (Tylenol) 650 mg Q4H PRN NG fever (temp>100.5F) 03/23/18 17:45 04/17/18 05:44 03/23/18 16:57 Acetylcysteine (Mucomyst) 200 mg Q6HRT HHN 03/23/18 19:00 04/22/18 00:59 03/26/18 06:54 Amiodarone HCl (Cordarone) 200 mg DAILY ORAL 03/25/18 12:30 04/24/18 12:29 03/26/18 09:17 Atenolol (Tenormin) 25 mg BID NG 03/23/18 18:00 04/06/18 08:59 03/24/18 18:19 Chlorhexidine Gluconate (Sahra-Hex 2%) 1 applic DAILY@2000 TOPIC 03/23/18 20:00 04/13/18 19:59 03/25/18 20:01 Dextrose/ Electrolytes 1,000 ml @ 50 mls/hr Q20H IV 03/23/18 17:30 04/09/18 17:29 03/26/18 03:39 Gabapentin (Neurontin) 300 mg THREE TIMES A DAY NG 03/23/18 18:00 04/05/18 17:59 03/26/18 09:18 Ipratropium [place] (Atrovent) 500 mcg Q4H PRN HHN Shortness of Breath 03/23/18 19:00 03/28/18 18:59 03/26/18 06:53 Levalbuterol HCl (Xopenex) 1.25 mg Q4H PRN HHN Shortness of Breath 03/23/18 19:00 03/28/18 18:59 03/26/18 06:53 Metronidazole (Flagyl) 500 mg Q8HR ORAL 03/23/18 22:00 03/26/18 13:59 03/26/18 06:04 Nitroglycerin (Ntg) 0.4 mg Q5M PRN SL Prn Chest Pain 03/23/18 16:35 04/05/18 17:10 Norepinephrine Bitartrate 4 mg/ Dextrose 250 ml @ 0 mls/hr Q24H IV 03/23/18 18:30 04/22/18 18:29 03/23/18 23:52 Olanzapine (ZyPREXA) 2.5 mg Q6H PRN NG agitation 03/23/18 16:00 04/07/18 15:59 Ondansetron HCl (Zofran) 4 mg Q6H PRN IVP Nausea & Vomiting 03/23/18 16:00 04/05/18 15:59 Polyethylene Glycol (Miralax) 17 gm DAILYPRN PRN NG Constipation 03/23/18 16:00 04/22/18 15:59 Promethazine HCl/ Codeine (Phenergan with Codeine) 5 ml Q4H PRN NG For Cough 03/23/18 17:15 04/05/18 17:11 Sodium Hypochlorite (Dakin's Quarter Strength) 1 applic DAILY TOPIC 03/24/18 09:00 04/13/18 12:29 03/26/18 09:18 Tamsulosin HCl (Flomax) 0.4 mg BEDTIME ORAL 03/23/18 21:00 04/05/18 20:59 03/25/18 21:00 Vancomycin HCl (Vanco rx to dose) 1 ea DAILY PRN MISC Per rx protocol 03/24/18 09:00 04/14/18 10:59 Vancomycin HCl 1 gm/Dextrose 275 ml @ 183.708 mls/hr Q12H IVPB 03/24/18 03:00 03/27/18 14:59 03/26/18 03:39 Allergies: Coded Allergies: No Known Allergies (Unverified , 03/06/18) ROS Limited/Unobtainable: Yes Subjective 87 YO F admitted with hematuria and gen weakness. Now pyelonephritis respiratory distress and sepsis. Cover for Int Med-Dr Scott. ICU. On levophed ; Back on non-rebreather mask Objective Last Vital Signs Date Time Temp Pulse Resp B/P (MAP) Pulse Ox O2 Delivery O2 Flow Rate FiO2 03/26/18 12:00 107 33 113/64 (80) 100 03/26/18 12:00 Non-Rebreather 15.0 03/26/18 11:00 98.8 03/26/18 06:55 55 Laboratory Tests Test 03/26/18 05:10 White Blood Count 13.7 K/UL (4.8-10.8) H Red Blood Count 3.02 M/UL (4.20-5.40) L Hemoglobin 9.3 G/DL (12.0-16.0) L Hematocrit 28.0 % (37.0-47.0) L Mean Corpuscular Volume 93 FL (80-99) Mean Corpuscular Hemoglobin 30.7 PG (27.0-31.0) Mean Corpuscular Hemoglobin Concent 33.1 G/DL (32.0-36.0) Red Cell Distribution Width 14.9 % (11.6-14.8) H Platelet Count 314 K/UL (150-450) Mean Platelet Volume 5.0 FL (6.5-10.1) L Neutrophils (%) (Auto) 78.6 % (45.0-75.0) H Lymphocytes (%) (Auto) 12.5 % (20.0-45.0) L Monocytes (%) (Auto) 7.9 % (1.0-10.0) Eosinophils (%) (Auto) 0.5 % (0.0-3.0) Basophils (%) (Auto) 0.5 % (0.0-2.0) Sodium Level 136 MMOL/L (136-145) Potassium Level 4.5 MMOL/L (3.5-5.1) Chloride Level 103 MMOL/L (98-107) Carbon Dioxide Level 30 MMOL/L (21-32) Anion Gap 4 mmol/L (5-15) L Blood Urea Nitrogen 11 mg/dL (7-18) Creatinine 0.6 MG/DL (0.55-1.30) Estimat Glomerular Filtration Rate mL/min (>60) Glucose Level 128 MG/DL (74-106) H Calcium Level 8.2 MG/DL (8.5-10.1) L Total Bilirubin 0.3 MG/DL (0.2-1.0) Aspartate Amino Transf (AST/SGOT) 19 U/L (15-37) Alanine Aminotransferase (ALT/SGPT) 17 U/L (12-78) Alkaline Phosphatase 140 U/L (46-116) H Pro-B-Type Natriuretic Peptide 2482 pg/mL (0-125) H Total Protein 4.9 G/DL (6.4-8.2) L Albumin 1.2 G/DL (3.4-5.0) L Globulin 3.7 g/dL Albumin/Globulin Ratio 0.3 (1.0-2.7) L Microbiology Date/Time Source Procedure Growth Status 03/24/18 12:55 Blood Blood Culture - Preliminary NO GROWTH AFTER 24 HOURS Resulted 03/24/18 12:27 Blood Blood Culture - Preliminary NO GROWTH AFTER 24 HOURS Resulted Intake and Output 03/25/18 03/26/18 18:59 06:59 Intake Total 1240.368 ml 1085 ml Output Total 475 ml 880 ml Balance 765.368 ml 205 ml Intake Free Water 200 ml IV Total 700.368 ml 300 ml Tube Feeding 540 ml 585 ml Output Urine Total 375 ml 680 ml Stool Total 100 ml 200 ml Objective PHYSICAL EXAMINATION: GENERAL: The patient is a well-developed and well-nourished white female, in no apparent distress. HEENT: Eyes, pupils are equal and responsive to light and accommodation. Extraocular movements are intact. NECK: Supple without lymphadenopathy. CHEST: crackles and rales at bases; Decreased breath sounds at bilateral bases. Otherwise, clear to auscultation without wheezes or rales. CARDIOVASCULAR: Tachycardic. Regular rate and rhythm. S1, S2 are normal without murmurs, rubs, or gallops. ABDOMEN: Soft, nontender, and nondistended. Positive bowel sounds. No evidence of hepatosplenomegaly. Currently, no rebound or guarding noted. EXTREMITIES: Negative for clubbing, cyanosis, or edema. RECTAL/GENITAL: Deferred. NEUROLOGIC: Cranial nerves II through XII are grossly intact without focal deficits. Assessment/Plan Problem List: (1) Pyelonephritis Assessment & Plan: Pseudamonas and strep. See ID note-Continue cefepime and vanco (2) Sepsis (3) HTN (hypertension) Assessment & Plan: Currently hypotensive (4) Hypercholesteremia (5) Sacral decubitus ulcer, stage IV Assessment & Plan: See surgery note-dr Ramsay (6) Urinary tract infection Assessment & Plan: pseudamonas; continue cefepime per ID (7) Pneumonia Assessment & Plan: New RLL. Previously MRSA. Continue vanco per ID (8) Atrial fibrillation with RVR Assessment & Plan: Sinus. Continue amiodrone per cardiology (9) Respiratory distress Assessment & Plan: On non rebreather mask Status: not improved Shankar Betts MD Mar 26, 2018 12:54
--- NOTE | 2018-03-26 12:56 | Diagnostic Imaging Report ---
APPROVED REPORT CPT Code: 16354 Present Symptoms Shortness of breath Technically difficult study (bilateral contractures of the hip and knee). BILATERAL: Imaging reveals a patent deep venous system bilaterally. There is no evidence of thrombus within the femoral, popliteal or tibial segments. The greater saphenous veins are also within normal limits. Doppler indicates normal spontaneous flow within these segments.
--- NOTE | 2018-03-26 13:06 | Diagnostic Imaging Report ---
Indication: Dyspnea Technique: One view of the chest Comparison: 03/23/2018 Findings: Previously demonstrated right pneumothorax is no longer evident. Large right pleural effusion and small left pleural effusion persists. Retrocardiac consolidation persists. Left jugular central venous catheter again demonstrated Impression: Resolved small right pneumothorax Persistent interstitial congestion and bilateral pleural effusions
--- NOTE | 2018-03-26 15:45 | Cardiac Electrophysiology PN ---
Assessment/Plan Status Narrative Technically difficult study due to patient was contracted. Study quality precludes accurate assessment of regional wall motion. Normal left ventricular chamber size, systolic function and wall motion. Left ventricular ejection fraction estimated to be 60-65 %. Mild left ventricular hypertrophy. Small circumferential pericardial effusion. Mild left atrial enlargement. Right cardiac chamber sizes are within normal limits. Aortic valve calcification with decreased cusp excursion c/w aortic stenosis. Mildly thickened mitral valve leaflets with normal excursion. Moderate mitral annulus and aortic root calcification. Normal pulmonic valve structure. Normal tricuspid valve structure. Subcostal views not obtainable due to G tube. Assessment/Plan 1. Atrial fibrillation with rapid ventricular response. On Atenolol 25 mg bid and amiodarone 200 GT daily. Echo EF 65% DC atenolol. Start Cardizem 60 TID 2. Urosepsis. On IV antibiotic per ID. 3. Hypertension, change atenolol to Cardizem 4. Sacral decubitus ulcer. 5. Dementia. 6. Dysphagia. S/P G-tube placement 03/21/17 KEIRY RN Subjective Subjective In ICU SOB in atrial fib on Amiodarone via GT. Off pressors Objective Last 24 Hour Vital Signs Date Time Temp Pulse Resp B/P (MAP) Pulse Ox O2 Delivery O2 Flow Rate FiO2 03/26/18 13:45 110 24 98 Venturi Mask 14.0 55 03/26/18 13:30 109 24 93 Venturi Mask 14.0 55 03/26/18 12:00 107 33 113/64 (80) 100 03/26/18 12:00 123 03/26/18 12:00 Non-Rebreather 15.0 03/26/18 11:00 98.8 104 33 118/68 (85) 98 03/26/18 10:00 108 30 115/66 (82) 100 03/26/18 09:00 104 30 111/63 (79) 100 03/26/18 09:00 108 108/55 03/26/18 08:00 Non-Rebreather 15.0 03/26/18 08:00 104 03/26/18 08:00 112 30 105/55 (72) 98 03/26/18 07:00 98 20 115/60 (78) 98 03/26/18 06:55 98 23 100 Venturi Mask 14.0 55 1/9/19 06:54 Venturi Mask 14.0 55 03/26/18 06:54 99 Venturi Mask 14.0 55 03/26/18 06:50 95 23 99 Venturi Mask 14.0 55 03/26/18 06:00 105 20 105/54 (71) 98 03/26/18 05:00 93 20 93/56 (68) 98 03/26/18 04:00 Non-Rebreather 15.0 03/26/18 04:00 98.6 107 20 106/45 (65) 98 03/26/18 04:00 104 03/26/18 03:00 105 20 115/50 (71) 98 03/26/18 02:01 96 21 98 Venturi Mask 14.0 55 03/26/18 02:00 114 20 104/52 (69) 98 03/26/18 01:48 96 27 97 Venturi Mask 14.0 55 03/26/18 01:00 85 20 104/56 (72) 98 03/26/18 00:00 99.0 85 20 101/37 (58) 98 03/26/18 00:00 89 03/26/18 00:00 Non-Rebreather 15.0 03/25/18 23:00 77 20 100/32 (54) 98 03/25/18 22:00 77 20 106/44 (64) 98 03/25/18 21:00 81 20 94/52 (66) 98 03/25/18 20:20 95 22 99 Venturi Mask 14.0 55 03/25/18 20:08 98 Venturi Mask 14.0 55 03/25/18 20:08 Venturi Mask 14.0 55 03/25/18 20:08 87 19 98 Venturi Mask 14.0 55 03/25/18 20:00 Non-Rebreather 15.0 03/25/18 20:00 91 03/25/18 20:00 99.7 83 20 97/47 (64) 98 03/25/18 19:00 83 20 104/49 (67) 98 03/25/18 18:00 84 22 105/49 (67) 98 03/25/18 17:56 83 105/50 03/25/18 17:32 111/47 03/25/18 17:00 81 20 111/47 (68) 97 03/25/18 16:00 98.6 79 19 131/64 (86) 97 03/25/18 16:00 Non-Rebreather 15.0 03/25/18 16:00 85 Intake and Output 03/25/18 03/26/18 19:00 07:00 Intake Total 1223.708 ml 1085 ml Output Total 460 ml 1000 ml Balance 763.708 ml 85 ml Intake Free Water 200 ml IV Total 683.708 ml 300 ml Tube Feeding 540 ml 585 ml Output Urine Total 360 ml 800 ml Stool Total 100 ml 200 ml Laboratory Tests Test 03/26/18 05:10 White Blood Count 13.7 K/UL (4.8-10.8) H Red Blood Count 3.02 M/UL (4.20-5.40) L Hemoglobin 9.3 G/DL (12.0-16.0) L Hematocrit 28.0 % (37.0-47.0) L Mean Corpuscular Volume 93 FL (80-99) Mean Corpuscular Hemoglobin 30.7 PG (27.0-31.0) Mean Corpuscular Hemoglobin Concent 33.1 G/DL (32.0-36.0) Red Cell Distribution Width 14.9 % (11.6-14.8) H Platelet Count 314 K/UL (150-450) Mean Platelet Volume 5.0 FL (6.5-10.1) L Neutrophils (%) (Auto) 78.6 % (45.0-75.0) H Lymphocytes (%) (Auto) 12.5 % (20.0-45.0) L Monocytes (%) (Auto) 7.9 % (1.0-10.0) Eosinophils (%) (Auto) 0.5 % (0.0-3.0) Basophils (%) (Auto) 0.5 % (0.0-2.0) Sodium Level 136 MMOL/L (136-145) Potassium Level 4.5 MMOL/L (3.5-5.1) Chloride Level 103 MMOL/L (98-107) Carbon Dioxide Level 30 MMOL/L (21-32) Anion Gap 4 mmol/L (5-15) L Blood Urea Nitrogen 11 mg/dL (7-18) Creatinine 0.6 MG/DL (0.55-1.30) Estimat Glomerular Filtration Rate mL/min (>60) Glucose Level 128 MG/DL (74-106) H Calcium Level 8.2 MG/DL (8.5-10.1) L Total Bilirubin 0.3 MG/DL (0.2-1.0) Aspartate Amino Transf (AST/SGOT) 19 U/L (15-37) Alanine Aminotransferase (ALT/SGPT) 17 U/L (12-78) Alkaline Phosphatase 140 U/L (46-116) H Pro-B-Type Natriuretic Peptide 2482 pg/mL (0-125) H Total Protein 4.9 G/DL (6.4-8.2) L Albumin 1.2 G/DL (3.4-5.0) L Globulin 3.7 g/dL Albumin/Globulin Ratio 0.3 (1.0-2.7) L Microbiology Date/Time Source Procedure Growth Status 03/24/18 12:55 Blood Blood Culture - Preliminary NO GROWTH AFTER 24 HOURS Resulted 03/24/18 12:27 Blood Blood Culture - Preliminary NO GROWTH AFTER 24 HOURS Resulted Objective HEAD AND NECK: No JVD. LUNGS: Coarse rhonchi bilaterally. CARDIOVASCULAR: Irregular tachy S1 and S2 with no gallop. ABDOMEN: Status post colostomy. GT in place EXTREMITIES: No pitting edema Fredrick Burk MD Mar 26, 2018 15:45
[2018-03-26] MEDS ORDERED: Promethazine/Codeine 5ml UD PEG PRN (16:00)
[2018-03-26] MEDS ORDERED: OLANZapine 2.5mg tab GT PRN (16:00)
[2018-03-26] MEDS ORDERED: Miralax 17gm pkt GT PRN (16:00)
[2018-03-26] MEDS: Gabapentin 300 MG/6 ML Soln PEG SCH (18:00)
[2018-03-26] MEDS: Dyna-Hex 2% Top Sol 2oz TOPIC SCH (20:34)
[2018-03-26] MEDS: Tamsulosin 0.4mg cap ORAL SCH (20:34)
--- NOTE | 2018-03-26 21:38 | General Progress Note ---
Assessment/Plan Assessment/Plan Zyprexa prn recommend palliative care/hospice the pt lacks capacity to make decisions. Ativan prn The son is not calling back to our phone calls Subjective Allergies: Coded Allergies: No Known Allergies (Unverified , 03/06/18) Subjective confused no changes the pt is the same dystonic Objective Last 24 Hour Vital Signs Date Time Temp Pulse Resp B/P (MAP) Pulse Ox O2 Delivery O2 Flow Rate FiO2 03/26/18 19:15 112 32 100 Venturi Mask 14.0 55 03/26/18 19:00 99 Venturi Mask 14.0 55 03/26/18 19:00 109 24 99 Venturi Mask 14.0 55 03/26/18 19:00 Venturi Mask 14.0 55 03/26/18 19:00 110 30 110/62 (78) 100 03/26/18 18:02 110/58 03/26/18 18:00 116 32 125/68 (87) 100 03/26/18 17:00 105 35 120/66 (84) 100 03/26/18 16:00 105 03/26/18 16:00 Non-Rebreather 15.0 03/26/18 16:00 98.8 108 33 115/61 (79) 98 03/26/18 15:00 110 35 114/61 (78) 100 03/26/18 14:00 109 36 118/63 (81) 100 03/26/18 13:45 110 24 98 Venturi Mask 14.0 55 03/26/18 13:30 109 24 93 Venturi Mask 14.0 55 03/26/18 13:00 107 29 93/55 (68) 100 03/26/18 12:00 107 33 113/64 (80) 100 03/26/18 12:00 123 03/26/18 12:00 Non-Rebreather 15.0 03/26/18 11:00 98.8 104 33 118/68 (85) 98 03/26/18 10:00 108 30 115/66 (82) 100 03/26/18 09:00 104 30 111/63 (79) 100 03/26/18 09:00 108 108/55 03/26/18 08:00 Non-Rebreather 15.0 03/26/18 08:00 104 03/26/18 08:00 112 30 105/55 (72) 98 03/26/18 07:00 98 20 115/60 (78) 98 03/26/18 06:55 98 23 100 Venturi Mask 14.0 55 03/26/18 06:54 Venturi Mask 14.0 55 03/26/18 06:54 99 Venturi Mask 14.0 55 03/26/18 06:50 95 23 99 Venturi Mask 14.0 55 03/26/18 06:00 105 20 105/54 (71) 98 03/26/18 05:00 93 20 93/56 (68) 98 03/26/18 04:00 Non-Rebreather 15.0 03/26/18 04:00 98.6 107 20 106/45 (65) 98 03/26/18 04:00 104 03/26/18 03:00 105 20 115/50 (71) 98 03/26/18 02:01 96 21 98 Venturi Mask 14.0 55 03/26/18 02:00 114 20 104/52 (69) 98 03/26/18 01:48 96 27 97 Venturi Mask 14.0 55 03/26/18 01:00 85 20 104/56 (72) 98 03/26/18 00:00 99.0 85 20 101/37 (58) 98 03/26/18 00:00 89 03/26/18 00:00 Non-Rebreather 15.0 03/25/18 23:00 77 20 100/32 (54) 98 03/25/18 22:00 77 20 106/44 (64) 98 Intake and Output 03/25/18 03/26/18 19:00 07:00 Intake Total 1223.708 ml 1085 ml Output Total 460 ml 1000 ml Balance 763.708 ml 85 ml Intake Free Water 200 ml IV Total 683.708 ml 300 ml Tube Feeding 540 ml 585 ml Output Urine Total 360 ml 800 ml Stool Total 100 ml 200 ml Laboratory Tests 03/26/18 05:10: White Blood Count 13.7H, Red Blood Count 3.02L, Hemoglobin 9.3L, Hematocrit 28.0L, Mean Corpuscular Volume 93, Mean Corpuscular Hemoglobin 30.7, Mean Corpuscular Hemoglobin Concent 33.1, Red Cell Distribution Width 14.9H, Platelet Count 314, Mean Platelet Volume 5.0L, Neutrophils (%) (Auto) 78.6H, Lymphocytes (%) (Auto) 12.5L, Monocytes (%) (Auto) 7.9, Eosinophils (%) (Auto) 0.5, Basophils (%) (Auto) 0.5, Sodium Level 136, Potassium Level 4.5, Chloride Level 103, Carbon Dioxide Level 30, Anion Gap 4L, Blood Urea Nitrogen 11, Creatinine 0.6, Estimat Glomerular Filtration Rate , Glucose Level 128H, Calcium Level 8.2L, Total Bilirubin 0.3, Aspartate Amino Transf (AST/SGOT) 19, Alanine Aminotransferase (ALT/SGPT) 17, Alkaline Phosphatase 140H, Pro-B-Type Natriuretic Peptide 2482H, Total Protein 4.9L, Albumin 1.2L, Globulin 3.7, Albumin/Globulin Ratio 0.3L Height (Feet): 5 Height (Inches): 3.00 Weight (Pounds): 150 General Appearance: alert, confused Bj Martinez MD Mar 26, 2018 21:38
[2018-03-26] MEDS: dilTIAZem HCl 60mg tab PEG SCH (22:19)
[2018-03-27] VITALS (23 sets, daily range): BP systolic 49–124; BP diastolic 41–60
[2018-03-27] MEDS: Ipratropium 0.02% Inh Soln 2.5ml UD HHN PRN ×4 (00:07→19:17)
[2018-03-27] MEDS: Levalbuterol Inh UD 1.25mg/0.5ml HHN PRN ×2 (00:07→12:42)
[2018-03-27] MEDS: Acetylcysteine 20% Soln 4ml HHN SCH ×4 (00:08→19:17)
[2018-03-27] MEDS: D5 1/2NS w/KCL 10meq 1,000 ML IV SCH ×2 (00:15→20:43)
[2018-03-27] MEDS: Vancomycin 1 GM in D5W 275 ML IVPB SCH ×2 (03:15→15:09)
[2018-03-27] MEDS: dilTIAZem HCl 60mg tab PEG SCH ×3 (05:46→22:48)
[2018-03-27 07:22] LABS: BASOPHILS % (AUTO) 0.6 % (0.0-2.0); EOSINOPHILS % (AUTO) 0.6 % (0.0-3.0); HEMATOCRIT 31.5 % (37.0-47.0); HEMOGLOBIN 10.2 G/DL (12.0-16.0); LYMPHOCYTES % (AUTO) 13.1 % (20.0-45.0); MEAN CORPUSCULAR VOLUME 95 FL (80-99); MONOCYTES % (AUTO) 9.1 % (1.0-10.0); NEUTROPHILS % (AUTO) 76.7 % (45.0-75.0); PLATELET COUNT 315 K/UL (150-450); RED BLOOD COUNT 3.33 M/UL (4.20-5.40); RED CELL DISTRIBUTION WIDTH 15.9 % (11.6-14.8); WHITE BLOOD COUNT 12.1 K/UL (4.8-10.8)
[2018-03-27 07:46] LABS: ALANINE AMINOTRANSFERASE 12 U/L (12-78); ALBUMIN 1.3 G/DL (3.4-5.0); ALBUMIN/GLOBULIN RATIO 0.3 (1.0-2.7); ALKALINE PHOSPHATASE 127 U/L (46-116); ANION GAP 2 mmol/L (5-15); ASPARTATE AMINO TRANSFERASE 23 U/L (15-37); BILIRUBIN,TOTAL 0.4 MG/DL (0.2-1.0); BLOOD UREA NITROGEN 10 mg/dL (7-18); CALCIUM 8.5 MG/DL (8.5-10.1); CARBON DIOXIDE 32 MMOL/L (21-32); CHLORIDE 103 MMOL/L (98-107); CREATININE 0.5 MG/DL (0.55-1.30); POTASSIUM 4.6 MMOL/L (3.5-5.1); SODIUM 137 MMOL/L (136-145)
[2018-03-27] MEDS: Gabapentin 300 MG/6 ML Soln PEG SCH ×3 (09:00→18:21)
--- NOTE | 2018-03-27 09:58 | Infectious Diseases Prog Note ---
Assessment/Plan Assessment/Plan Sepsis, resolved 2ry to UTI c/w bacteremia and prob early PNA -u/a wbc tntc, nit neg, luek +3; ucx >100k PsA (R cipro/levo, otherwise S), E. fecalis (S Amp, vanco) -03/06 Bcx 4/ P.mirabiis (R cipro, I Levo; otherwise S), 03/21 MRSE ( contaminant); 03/07 Neg Probable Pneum : -CXR: Subtle patchy opacities in the right upper lung raising question for developing pneumonia. Clinical correlation/follow-up recommended. -influenza sc neg -sp cx MRSA, C. albicans (Colonizer) 03/19/17 - CT C/A/P - Bilateral basilar pneumonia versus atelectasis. Small to moderate left pleural effusion and a small right pleural effusion noted. 03/19/18 UCx - Yeast 03/23/18 CXR - B/L consolidation R>L Low grade fever, SP Leukocytosis - 21 FTT HTN Afib dysphagia HLD Dementia contractures Plan: - Continue flagyl #10/27, IV Vanco d# 01/30 and Cefepime # for PNA (Asp PNA?) -03/13 SP IV Vancomycin #7 -03/06 SP Meropenem x1 - f/u Sputum Cx -Monitor CBC/CMP, temperatures -aspiration precautions Subjective Allergies: Coded Allergies: No Known Allergies (Unverified , 03/06/18) Subjective Opens eyes Afebrile On Ventimask Leukocytosis improving No pressors Objective Vital Signs Last 24 Hour Vital Signs Date Time Temp Pulse Resp B/P (MAP) Pulse Ox O2 Delivery O2 Flow Rate FiO2 03/27/18 08:00 102 03/27/18 08:00 98.0 104 19 96/48 (64) 96 03/27/18 07:39 98 25 98 Venturi Mask 12.0 50 03/27/18 07:23 97 23 96 Venturi Mask 12.0 50 03/27/18 07:23 Venturi Mask 14.0 55 03/27/18 07:23 96 Venturi Mask 14.0 55 03/27/18 07:00 95 21 95/45 (62) 98 03/27/18 06:00 102 23 90/50 (63) 98 03/27/18 05:46 88 88/58 03/27/18 05:00 88 21 88/58 (68) 100 03/27/18 04:00 96 20 93/59 (70) 100 03/27/18 04:00 120 03/27/18 04:00 Venturi Mask 15.0 03/27/18 03:00 130 20 93/56 (68) 94 03/27/18 02:00 130 20 95/41 (59) 94 03/27/18 00:16 84 21 99 Venturi Mask 12.0 50 03/27/18 00:06 85 25 94 Venturi Mask 14.0 55 03/27/18 00:00 Venturi Mask 15.0 03/27/18 00:00 98.9 91 22 98/49 (65) 97 03/26/18 23:56 85 19 Venturi Mask 15.0 55 03/26/18 23:00 91 20 88/68 (75) 97 03/26/18 22:19 96 105/54 03/26/18 22:00 93 23 105/54 (71) 99 03/26/18 21:00 110 23 106/55 (72) 98 03/26/18 20:00 106 03/26/18 20:00 Venturi Mask 15.0 03/26/18 20:00 98.6 92 18 98/52 (67) 99 03/26/18 19:15 112 32 100 Venturi Mask 14.0 55 03/26/18 19:00 99 Venturi Mask 14.0 55 03/26/18 19:00 109 24 99 Venturi Mask 14.0 55 03/26/18 19:00 Venturi Mask 14.0 55 03/26/18 19:00 110 30 110/62 (78) 100 03/26/18 18:02 110/58 03/26/18 18:00 116 32 125/68 (87) 100 03/26/18 17:00 105 35 120/66 (84) 100 03/26/18 16:00 105 03/26/18 16:00 Non-Rebreather 15.0 03/26/18 16:00 98.8 108 33 115/61 (79) 98 03/26/18 15:00 110 35 114/61 (78) 100 03/26/18 14:00 109 36 118/63 (81) 100 03/26/18 13:45 110 24 98 Venturi Mask 14.0 55 03/26/18 13:30 109 24 93 Venturi Mask 14.0 55 03/26/18 13:00 107 29 93/55 (68) 100 03/26/18 12:00 107 33 113/64 (80) 100 03/26/18 12:00 123 03/26/18 12:00 Non-Rebreather 15.0 03/26/18 11:00 98.8 104 33 118/68 (85) 98 03/26/18 10:00 108 30 115/66 (82) 100 Height (Feet): 5 Height (Inches): 3.00 Weight (Pounds): 150 Objective General: NAD, On Ventimask 50% O2 HEENT: NCAT, MMM Respiratory: Course B/L, No W Cardiovascular : tachycardia, systolic murmur, irregularly irregular Gastrointestinal: soft, non-distended, colostomy bag in place and PEG Neurologic: non-verbal Microbiology Date/Time Source Procedure Growth Status 03/24/18 12:55 Blood Blood Culture - Preliminary NO GROWTH AFTER 48 HOURS Resulted 03/24/18 12:27 Blood Blood Culture - Preliminary NO GROWTH AFTER 48 HOURS Resulted Laboratory Tests Test 03/26/18 18:00 03/27/18 06:34 Urine Legionella Antigen Pending White Blood Count 12.1 K/UL (4.8-10.8) H Red Blood Count 3.33 M/UL (4.20-5.40) L Hemoglobin 10.2 G/DL (12.0-16.0) L Hematocrit 31.5 % (37.0-47.0) L Mean Corpuscular Volume 95 FL (80-99) Mean Corpuscular Hemoglobin 30.6 PG (27.0-31.0) Mean Corpuscular Hemoglobin Concent 32.3 G/DL (32.0-36.0) Red Cell Distribution Width 15.9 % (11.6-14.8) H Platelet Count 315 K/UL (150-450) Mean Platelet Volume 5.0 FL (6.5-10.1) L Neutrophils (%) (Auto) 76.7 % (45.0-75.0) H Lymphocytes (%) (Auto) 13.1 % (20.0-45.0) L Monocytes (%) (Auto) 9.1 % (1.0-10.0) Eosinophils (%) (Auto) 0.6 % (0.0-3.0) Basophils (%) (Auto) 0.6 % (0.0-2.0) Sodium Level 137 MMOL/L (136-145) Potassium Level 4.6 MMOL/L (3.5-5.1) Chloride Level 103 MMOL/L (98-107) Carbon Dioxide Level 32 MMOL/L (21-32) Anion Gap 2 mmol/L (5-15) L Blood Urea Nitrogen 10 mg/dL (7-18) Creatinine 0.5 MG/DL (0.55-1.30) L Estimat Glomerular Filtration Rate mL/min (>60) Glucose Level 118 MG/DL (74-106) H Calcium Level 8.5 MG/DL (8.5-10.1) Total Bilirubin 0.4 MG/DL (0.2-1.0) Aspartate Amino Transf (AST/SGOT) 23 U/L (15-37) Alanine Aminotransferase (ALT/SGPT) 12 U/L (12-78) Alkaline Phosphatase 127 U/L (46-116) H Pro-B-Type Natriuretic Peptide 2798 pg/mL (0-125) H Total Protein 5.3 G/DL (6.4-8.2) L Albumin 1.3 G/DL (3.4-5.0) L Globulin 4.0 g/dL Albumin/Globulin Ratio 0.3 (1.0-2.7) L Current Medications Medications (Trade) Dose Ordered Sig/Cele Route PRN Reason Start Time Stop Time Status Last Admin Dose Admin Acetaminophen (Tylenol) 650 mg Q4H PRN PEG fever (temp>100.5F) 03/26/18 16:00 04/17/18 05:44 Acetylcysteine (Mucomyst) 200 mg Q6HRT HHN 03/23/18 19:00 04/22/18 00:59 03/27/18 07:23 Amiodarone HCl (Cordarone) 200 mg DAILY PEG 03/27/18 09:00 04/24/18 12:29 Chlorhexidine Gluconate (Sahra-Hex 2%) 1 applic DAILY@2000 TOPIC 03/23/18 20:00 04/13/18 19:59 03/26/18 20:34 Dextrose/ Electrolytes 1,000 ml @ 50 mls/hr Q20H IV 03/23/18 17:30 04/09/18 17:29 03/27/18 00:15 Diltiazem HCl (Cardizem) 60 mg EVERY 8 HOURS PEG 03/26/18 22:00 04/25/18 21:59 03/27/18 05:46 Gabapentin (Neurontin) 300 mg TID PEG 03/26/18 18:00 04/25/18 17:59 03/26/18 18:00 Ipratropium Allen (Atrovent) 500 mcg Q4H PRN HHN Shortness of Breath 03/23/18 19:00 03/28/18 18:59 03/27/18 07:20 Levalbuterol HCl (Xopenex) 1.25 mg Q4H PRN HHN Shortness of Breath 03/23/18 19:00 03/28/18 18:59 03/27/18 00:07 Nitroglycerin (Ntg) 0.4 mg Q5M PRN SL Prn Chest Pain 03/23/18 16:35 04/05/18 17:10 Norepinephrine Bitartrate 4 mg/ Dextrose 250 ml @ 0 mls/hr Q24H IV 03/23/18 18:30 04/22/18 18:29 03/23/18 23:52 Olanzapine (ZyPREXA) 2.5 mg Q6H PRN GT agitation 03/26/18 16:00 04/07/18 15:59 Ondansetron HCl (Zofran) 4 mg Q6H PRN IVP Nausea & Vomiting 03/23/18 16:00 04/05/18 15:59 Polyethylene Glycol (Miralax) 17 gm DAILYPRN PRN GT Constipation 03/26/18 16:00 04/22/18 15:59 Promethazine HCl/ Codeine (Phenergan with Codeine) 5 ml Q4H PRN PEG For Cough 03/26/18 16:00 04/05/18 17:11 Tamsulosin HCl (Flomax) 0.4 mg BEDTIME ORAL 03/23/18 21:00 04/05/18 20:59 03/26/18 20:34 Vancomycin HCl (Vanco rx to dose) 1 ea DAILY PRN MISC Per rx protocol 03/24/18 09:00 04/14/18 10:59 Vancomycin HCl 1 gm/Dextrose 275 ml @ 183.708 mls/hr Q12H IVPB 03/24/18 03:00 04/01/18 02:59 03/27/18 03:15 Pacheco Umana MD Mar 27, 2018 09:58
[2018-03-27] MEDS: Amiodarone 200mg tab PEG SCH (10:06)
--- NOTE | 2018-03-27 10:18 | Cardiac Electrophysiology PN ---
Assessment/Plan Status Narrative Technically difficult study due to patient was contracted. Study quality precludes accurate assessment of regional wall motion. Normal left ventricular chamber size, systolic function and wall motion. Left ventricular ejection fraction estimated to be 60-65 %. Mild left ventricular hypertrophy. Small circumferential pericardial effusion. Mild left atrial enlargement. Right cardiac chamber sizes are within normal limits. Aortic valve calcification with decreased cusp excursion c/w aortic stenosis. Mildly thickened mitral valve leaflets with normal excursion. Moderate mitral annulus and aortic root calcification. Normal pulmonic valve structure. Normal tricuspid valve structure. Subcostal views not obtainable due to G tube. Assessment/Plan 1. Paroxysmal atrial fibrillation with rapid ventricular response. On Cardizem 60 TID and amiodarone 200 GT daily. Echo EF 65% 2. Urosepsis. On IV antibiotic per ID. 3. Hypertension, on Cardizem 4. Sacral decubitus ulcer. 5. Dementia. 6. Dysphagia. S/P G-tube placement 03/21/17 KEIRY RN Subjective Subjective In ICU SOB off and on in atrial fib on Amiodarone via GT. Off pressors Objective Last 24 Hour Vital Signs Date Time Temp Pulse Resp B/P (MAP) Pulse Ox O2 Delivery O2 Flow Rate FiO2 03/27/18 08:00 102 03/27/18 08:00 98.0 104 19 96/48 (64) 96 03/27/18 07:39 98 25 98 Venturi Mask 12.0 50 03/27/18 07:23 97 23 96 Venturi Mask 12.0 50 03/27/18 07:23 Venturi Mask 14.0 55 03/27/18 07:23 96 Venturi Mask 14.0 55 03/27/18 07:00 95 21 95/45 (62) 98 03/27/18 06:00 102 23 90/50 (63) 98 03/27/18 05:46 88 88/58 03/27/18 05:00 88 21 88/58 (68) 100 03/27/18 04:00 96 20 93/59 (70) 100 03/27/18 04:00 120 03/27/18 04:00 Venturi Mask 15.0 03/27/18 03:00 130 20 93/56 (68) 94 03/27/18 02:00 130 20 95/41 (59) 94 03/27/18 00:16 84 21 99 Venturi Mask 12.0 50 03/27/18 00:06 85 25 94 Venturi Mask 14.0 55 03/27/18 00:00 Venturi Mask 15.0 03/27/18 00:00 98.9 91 22 98/49 (65) 97 03/26/18 23:56 85 19 Venturi Mask 15.0 55 03/26/18 23:00 91 20 88/68 (75) 97 03/26/18 22:19 96 105/54 03/26/18 22:00 93 23 105/54 (71) 99 03/26/18 21:00 110 23 106/55 (72) 98 03/26/18 20:00 106 03/26/18 20:00 Venturi Mask 15.0 03/26/18 20:00 98.6 92 18 98/52 (67) 99 03/26/18 19:15 112 32 100 Venturi Mask 14.0 55 03/26/18 19:00 99 Venturi Mask 14.0 55 03/26/18 19:00 109 24 99 Venturi Mask 14.0 55 03/26/18 19:00 Venturi Mask 14.0 55 03/26/18 19:00 110 30 110/62 (78) 100 03/26/18 18:02 110/58 03/26/18 18:00 116 32 125/68 (87) 100 03/26/18 17:00 105 35 120/66 (84) 100 03/26/18 16:00 105 03/26/18 16:00 Non-Rebreather 15.0 03/26/18 16:00 98.8 108 33 115/61 (79) 98 03/26/18 15:00 110 35 114/61 (78) 100 03/26/18 14:00 109 36 118/63 (81) 100 03/26/18 13:45 110 24 98 Venturi Mask 14.0 55 03/26/18 13:30 109 24 93 Venturi Mask 14.0 55 03/26/18 13:00 107 29 93/55 (68) 100 03/26/18 12:00 107 33 113/64 (80) 100 03/26/18 12:00 123 03/26/18 12:00 Non-Rebreather 15.0 03/26/18 11:00 98.8 104 33 118/68 (85) 98 Intake and Output 03/26/18 03/27/18 18:59 06:59 Intake Total 1507.416 ml 1150 ml Output Total 960 ml 2350 ml Balance 547.416 ml -1200 ml Intake Free Water 60 ml IV Total 967.416 ml 550 ml Tube Feeding 540 ml 540 ml Output Urine Total 960 ml 1600 ml Stool Total 750 ml Laboratory Tests Test 03/26/18 18:00 03/27/18 06:34 Urine Legionella Antigen Pending White Blood Count 12.1 K/UL (4.8-10.8) H Red Blood Count 3.33 M/UL (4.20-5.40) L Hemoglobin 10.2 G/DL (12.0-16.0) L Hematocrit 31.5 % (37.0-47.0) L Mean Corpuscular Volume 95 FL (80-99) Mean Corpuscular Hemoglobin 30.6 PG (27.0-31.0) Mean Corpuscular Hemoglobin Concent 32.3 G/DL (32.0-36.0) Red Cell Distribution Width 15.9 % (11.6-14.8) H Platelet Count 315 K/UL (150-450) Mean Platelet Volume 5.0 FL (6.5-10.1) L Neutrophils (%) (Auto) 76.7 % (45.0-75.0) H Lymphocytes (%) (Auto) 13.1 % (20.0-45.0) L Monocytes (%) (Auto) 9.1 % (1.0-10.0) Eosinophils (%) (Auto) 0.6 % (0.0-3.0) Basophils (%) (Auto) 0.6 % (0.0-2.0) Sodium Level 137 MMOL/L (136-145) Potassium Level 4.6 MMOL/L (3.5-5.1) Chloride Level 103 MMOL/L (98-107) Carbon Dioxide Level 32 MMOL/L (21-32) Anion Gap 2 mmol/L (5-15) L Blood Urea Nitrogen 10 mg/dL (7-18) Creatinine 0.5 MG/DL (0.55-1.30) L Estimat Glomerular Filtration Rate mL/min (>60) Glucose Level 118 MG/DL (74-106) H Calcium Level 8.5 MG/DL (8.5-10.1) Total Bilirubin 0.4 MG/DL (0.2-1.0) Aspartate Amino Transf (AST/SGOT) 23 U/L (15-37) Alanine Aminotransferase (ALT/SGPT) 12 U/L (12-78) Alkaline Phosphatase 127 U/L (46-116) H Pro-B-Type Natriuretic Peptide 2798 pg/mL (0-125) H Total Protein 5.3 G/DL (6.4-8.2) L Albumin 1.3 G/DL (3.4-5.0) L Globulin 4.0 g/dL Albumin/Globulin Ratio 0.3 (1.0-2.7) L Microbiology Date/Time Source Procedure Growth Status 03/24/18 12:55 Blood Blood Culture - Preliminary NO GROWTH AFTER 48 HOURS Resulted 03/24/18 12:27 Blood Blood Culture - Preliminary NO GROWTH AFTER 48 HOURS Resulted Objective HEAD AND NECK: No JVD. LUNGS: Coarse rhonchi bilaterally. CARDIOVASCULAR: Irregular tachy S1 and S2 with no gallop. ABDOMEN: Status post colostomy. GT in place EXTREMITIES: No pitting edema Fredrick Burk MD Mar 27, 2018 10:18
--- NOTE | 2018-03-27 10:22 | Pulmonolgy Critical Care Note ---
Critical Care - Asmt/Plan Problems: (1) Respiratory distress (2) Pneumonia (3) Sacral decubitus ulcer, stage IV (4) Protein-calorie malnutrition, severe (5) At high risk for aspiration Respiratory: monitor respiratory rate, adjust FIO2, CXR Cardiac: continue to monitor HR/BP Renal: F/U I&O, check electrolytes Infectious Disease: check cultures Gastrointestinal: continue feedings/current rate Endocrine: check HgA1C Hematologic: transfuse if hgb<8.5 Neurologic: PRN Ativan, PRN Morphine, keep patient comfortable Affect: PRN ativan Disposition: keep in ICU Notes Reviewed: agency sales management assistant, cardio, 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 with: nurses, consultants, director case managementhuman resources benefits manager - Objective Last 24 Hour Vital Signs Date Time Temp Pulse Resp B/P (MAP) Pulse Ox O2 Delivery O2 Flow Rate FiO2 03/27/18 08:00 102 03/27/18 08:00 98.0 104 19 96/48 (64) 96 03/27/18 07:39 98 25 98 Venturi Mask 12.0 50 03/27/18 07:23 97 23 96 Venturi Mask 12.0 50 03/27/18 07:23 Venturi Mask 14.0 55 03/27/18 07:23 96 Venturi Mask 14.0 55 03/27/18 07:00 95 21 95/45 (62) 98 03/27/18 06:00 102 23 90/50 (63) 98 03/27/18 05:46 88 88/58 03/27/18 05:00 88 21 88/58 (68) 100 03/27/18 04:00 96 20 93/59 (70) 100 03/27/18 04:00 120 03/27/18 04:00 Venturi Mask 15.0 03/27/18 03:00 130 20 93/56 (68) 94 03/27/18 02:00 130 20 95/41 (59) 94 03/27/18 00:16 84 21 99 Venturi Mask 12.0 50 03/27/18 00:06 85 25 94 Venturi Mask 14.0 55 03/27/18 00:00 Venturi Mask 15.0 03/27/18 00:00 98.9 91 22 98/49 (65) 97 03/26/18 23:56 85 19 Venturi Mask 15.0 55 03/26/18 23:00 91 20 88/68 (75) 97 03/26/18 22:19 96 105/54 03/26/18 22:00 93 23 105/54 (71) 99 03/26/18 21:00 110 23 106/55 (72) 98 03/26/18 20:00 106 03/26/18 20:00 Venturi Mask 15.0 03/26/18 20:00 98.6 92 18 98/52 (67) 99 03/26/18 19:15 112 32 100 Venturi Mask 14.0 55 03/26/18 19:00 99 Venturi Mask 14.0 55 03/26/18 19:00 109 24 99 Venturi Mask 14.0 55 03/26/18 19:00 Venturi Mask 14.0 55 03/26/18 19:00 110 30 110/62 (78) 100 03/26/18 18:02 110/58 03/26/18 18:00 116 32 125/68 (87) 100 03/26/18 17:00 105 35 120/66 (84) 100 03/26/18 16:00 105 03/26/18 16:00 Non-Rebreather 15.0 03/26/18 16:00 98.8 108 33 115/61 (79) 98 03/26/18 15:00 110 35 114/61 (78) 100 03/26/18 14:00 109 36 118/63 (81) 100 03/26/18 13:45 110 24 98 Venturi Mask 14.0 55 03/26/18 13:30 109 24 93 Venturi Mask 14.0 55 03/26/18 13:00 107 29 93/55 (68) 100 03/26/18 12:00 107 33 113/64 (80) 100 03/26/18 12:00 123 03/26/18 12:00 Non-Rebreather 15.0 03/26/18 11:00 98.8 104 33 118/68 (85) 98 Status: awake Condition: critical HEENT: atraumatic Lungs: rales, rhonchi Heart: HR/BP stable Abdomen: soft, active bowel sounds Extremities: edema Decubiti: location Micro: Microbiology Date/Time Source Procedure Growth Status 03/24/18 12:55 Blood Blood Culture - Preliminary NO GROWTH AFTER 48 HOURS Resulted 03/24/18 12:27 Blood Blood Culture - Preliminary NO GROWTH AFTER 48 HOURS Resulted Accucheck: 111 Critical Care - Subjective ROS Limited/Unobtainable: Yes Interval Events: on face mask Condition: critical FI02: 50 Sputum Amount: Moderate Tube Feeding Amount: 25 I&O: Intake and Output 03/26/18 03/27/18 19:00 07:00 Intake Total 1507.416 ml 1100 ml Output Total 860 ml 2400 ml Balance 647.416 ml -1300 ml Intake Free Water 60 ml IV Total 967.416 ml 500 ml Tube Feeding 540 ml 540 ml Output Urine Total 860 ml 1650 ml Stool Total 750 ml CXR: slightly better Labs: Laboratory Tests Test 03/26/18 18:00 03/27/18 06:34 Urine Legionella Antigen Pending White Blood Count 12.1 K/UL (4.8-10.8) H Red Blood Count 3.33 M/UL (4.20-5.40) L Hemoglobin 10.2 G/DL (12.0-16.0) L Hematocrit 31.5 % (37.0-47.0) L Mean Corpuscular Volume 95 FL (80-99) Mean Corpuscular Hemoglobin 30.6 PG (27.0-31.0) Mean Corpuscular Hemoglobin Concent 32.3 G/DL (32.0-36.0) Red Cell Distribution Width 15.9 % (11.6-14.8) H Platelet Count 315 K/UL (150-450) Mean Platelet Volume 5.0 FL (6.5-10.1) L Neutrophils (%) (Auto) 76.7 % (45.0-75.0) H Lymphocytes (%) (Auto) 13.1 % (20.0-45.0) L Monocytes (%) (Auto) 9.1 % (1.0-10.0) Eosinophils (%) (Auto) 0.6 % (0.0-3.0) Basophils (%) (Auto) 0.6 % (0.0-2.0) Sodium Level 137 MMOL/L (136-145) Potassium Level 4.6 MMOL/L (3.5-5.1) Chloride Level 103 MMOL/L (98-107) Carbon Dioxide Level 32 MMOL/L (21-32) Anion Gap 2 mmol/L (5-15) L Blood Urea Nitrogen 10 mg/dL (7-18) Creatinine 0.5 MG/DL (0.55-1.30) L Estimat Glomerular Filtration Rate mL/min (>60) Glucose Level 118 MG/DL (74-106) H Calcium Level 8.5 MG/DL (8.5-10.1) Total Bilirubin 0.4 MG/DL (0.2-1.0) Aspartate Amino Transf (AST/SGOT) 23 U/L (15-37) Alanine Aminotransferase (ALT/SGPT) 12 U/L (12-78) Alkaline Phosphatase 127 U/L (46-116) H Pro-B-Type Natriuretic Peptide 2798 pg/mL (0-125) H Total Protein 5.3 G/DL (6.4-8.2) L Albumin 1.3 G/DL (3.4-5.0) L Globulin 4.0 g/dL Albumin/Globulin Ratio 0.3 (1.0-2.7) L Rishi Gutierrez MD Mar 27, 2018 10:22
--- NOTE | 2018-03-27 12:49 | GI Progress Note ---
Assessment/Plan Problems: (1) Encounter for PEG (percutaneous endoscopic gastrostomy) ICD Codes: Z43.1 - Encounter for attention to gastrostomy SNOMED: 285843537, 608278704 (2) At high risk for aspiration ICD Codes: Z91.89 - Other specified personal risk factors, not elsewhere classified SNOMED: 878476006 (3) Protein-calorie malnutrition, severe ICD Codes: E43 - Unspecified severe protein-calorie malnutrition SNOMED: 059967870 (4) Dysphasia ICD Codes: R47.02 - Dysphasia SNOMED: 88073216 Status: stable Status Narrative Discussed with Dr. Velez. Assessment/Plan s/p GT placement GTF and care fu labs Follow-up pulmonary recommendations The patient was seen and examined at bedside and all new and available data was reviewed in the patients chart. I agree with the above findings, impression and plan. (Patient seen earlier today. Signature stamp does not reflect patient encounter time.). - Ernesto Velez MD Subjective Subjective Limited Objective Last 24 Hour Vital Signs Date Time Temp Pulse Resp B/P (MAP) Pulse Ox O2 Delivery O2 Flow Rate FiO2 03/27/18 12:38 126 31 99 Venturi Mask 12.0 50 03/27/18 12:00 98.7 113 33 124/59 (80) 96 03/27/18 12:00 Venturi Mask 03/27/18 11:00 102 32 107/50 (69) 90 03/27/18 10:00 101 32 93/43 (60) 90 03/27/18 09:00 92 20 96/49 (65) 97 03/27/18 08:00 Venturi Mask 15.0 03/27/18 08:00 102 03/27/18 08:00 98.0 104 19 96/48 (64) 96 03/27/18 07:39 98 25 98 Venturi Mask 12.0 50 03/27/18 07:23 97 23 96 Venturi Mask 12.0 50 03/27/18 07:23 Venturi Mask 14.0 55 03/27/18 07:23 96 Venturi Mask 14.0 55 03/27/18 07:00 95 21 95/45 (62) 98 03/27/18 06:00 102 23 90/50 (63) 98 03/27/18 05:46 88 88/58 03/27/18 05:00 88 21 88/58 (68) 100 03/27/18 04:00 96 20 93/59 (70) 100 03/27/18 04:00 120 03/27/18 04:00 Venturi Mask 15.0 03/27/18 03:00 130 20 93/56 (68) 94 03/27/18 02:00 130 20 95/41 (59) 94 03/27/18 00:16 84 21 99 Venturi Mask 12.0 50 03/27/18 00:06 85 25 94 Venturi Mask 14.0 55 03/27/18 00:00 Venturi Mask 15.0 03/27/18 00:00 98.9 91 22 98/49 (65) 97 03/26/18 23:56 85 19 Venturi Mask 15.0 55 03/26/18 23:00 91 20 88/68 (75) 97 03/26/18 22:19 96 105/54 03/26/18 22:00 93 23 105/54 (71) 99 03/26/18 21:00 110 23 106/55 (72) 98 03/26/18 20:00 106 03/26/18 20:00 Venturi Mask 15.0 03/26/18 20:00 98.6 92 18 98/52 (67) 99 03/26/18 19:15 112 32 100 Venturi Mask 14.0 55 03/26/18 19:00 99 Venturi Mask 14.0 55 03/26/18 19:00 109 24 99 Venturi Mask 14.0 55 03/26/18 19:00 Venturi Mask 14.0 55 03/26/18 19:00 110 30 110/62 (78) 100 03/26/18 18:02 110/58 03/26/18 18:00 116 32 125/68 (87) 100 03/26/18 17:00 105 35 120/66 (84) 100 03/26/18 16:00 105 03/26/18 16:00 Non-Rebreather 15.0 03/26/18 16:00 98.8 108 33 115/61 (79) 98 03/26/18 15:00 110 35 114/61 (78) 100 03/26/18 14:00 109 36 118/63 (81) 100 03/26/18 13:45 110 24 98 Venturi Mask 14.0 55 03/26/18 13:30 109 24 93 Venturi Mask 14.0 55 03/26/18 13:00 107 29 93/55 (68) 100 Intake and Output 03/26/18 03/27/18 18:59 06:59 Intake Total 1507.416 ml 1150 ml Output Total 960 ml 2350 ml Balance 547.416 ml -1200 ml Intake Free Water 60 ml IV Total 967.416 ml 550 ml Tube Feeding 540 ml 540 ml Output Urine Total 960 ml 1600 ml Stool Total 750 ml Laboratory Tests Test 03/26/18 18:00 03/27/18 06:34 Urine Legionella Antigen Pending White Blood Count 12.1 K/UL (4.8-10.8) H Red Blood Count 3.33 M/UL (4.20-5.40) L Hemoglobin 10.2 G/DL (12.0-16.0) L Hematocrit 31.5 % (37.0-47.0) L Mean Corpuscular Volume 95 FL (80-99) Mean Corpuscular Hemoglobin 30.6 PG (27.0-31.0) Mean Corpuscular Hemoglobin Concent 32.3 G/DL (32.0-36.0) Red Cell Distribution Width 15.9 % (11.6-14.8) H Platelet Count 315 K/UL (150-450) Mean Platelet Volume 5.0 FL (6.5-10.1) L Neutrophils (%) (Auto) 76.7 % (45.0-75.0) H Lymphocytes (%) (Auto) 13.1 % (20.0-45.0) L Monocytes (%) (Auto) 9.1 % (1.0-10.0) Eosinophils (%) (Auto) 0.6 % (0.0-3.0) Basophils (%) (Auto) 0.6 % (0.0-2.0) Sodium Level 137 MMOL/L (136-145) Potassium Level 4.6 MMOL/L (3.5-5.1) Chloride Level 103 MMOL/L (98-107) Carbon Dioxide Level 32 MMOL/L (21-32) Anion Gap 2 mmol/L (5-15) L Blood Urea Nitrogen 10 mg/dL (7-18) Creatinine 0.5 MG/DL (0.55-1.30) L Estimat Glomerular Filtration Rate mL/min (>60) Glucose Level 118 MG/DL (74-106) H Calcium Level 8.5 MG/DL (8.5-10.1) Total Bilirubin 0.4 MG/DL (0.2-1.0) Aspartate Amino Transf (AST/SGOT) 23 U/L (15-37) Alanine Aminotransferase (ALT/SGPT) 12 U/L (12-78) Alkaline Phosphatase 127 U/L (46-116) H Pro-B-Type Natriuretic Peptide 2798 pg/mL (0-125) H Total Protein 5.3 G/DL (6.4-8.2) L Albumin 1.3 G/DL (3.4-5.0) L Globulin 4.0 g/dL Albumin/Globulin Ratio 0.3 (1.0-2.7) L Height (Feet): 5 Height (Inches): 3.00 Weight (Pounds): 150 General Appearance: WD/WN Cardiovascular: normal rate Respiratory/Chest: normal breath sounds, no respiratory distress Abdominal Exam: normal bowel sounds, non tender, soft Extremities: non-tender Thaddeus Galeana NP Mar 27, 2018 12:49
[2018-03-27] MEDS: Cefepime 1gm in D5W 55ml IVPB SCH (15:03)
[2018-03-27] MEDS: metroNIDAZOLE 500mg tab GT SCH ×2 (15:03→22:48)
--- NOTE | 2018-03-27 15:23 | Diagnostic Imaging Report ---
Indication: Shortness of breath Technique: One view of the chest Comparison: 03/26/2018 Findings: Interim decreased right basilar pleural fluid, now largely resolved. There is persistent pleural fluid and parenchymal consolidation at the left lung base, may slightly increased. Generalized interstitial congestion persists. Left jugular central venous catheter remains Impression: Decreased and now largely resolved right pleural effusion Increased left pleural fluid and possibly increased left basilar consolidation Generalized interstitial congestion persists
--- NOTE | 2018-03-27 18:24 | Internal Med Progress Note ---
Subjective Date of Service: Mar 27, 2018 Physician Name Betts,Shankar Attending Physician Davian Scott MD Current Medications Medications (Trade) Dose Ordered Sig/Cele Route PRN Reason Start Time Stop Time Status Last Admin Dose Admin Acetaminophen (Tylenol) 650 mg Q4H PRN PEG fever (temp>100.5F) 03/26/18 16:00 04/17/18 05:44 Acetylcysteine (Mucomyst) 200 mg Q6HRT HHN 03/23/18 19:00 04/22/18 00:59 03/27/18 12:38 Amiodarone HCl (Cordarone) 200 mg DAILY PEG 03/27/18 09:00 04/24/18 12:29 03/27/18 10:06 Cefepime HCl 1 gm/ Dextrose 55 ml @ 110 mls/hr Q24H IVPB 03/27/18 14:00 04/03/18 13:59 03/27/18 15:03 Chlorhexidine Gluconate (Sahra-Hex 2%) 1 applic DAILY@2000 TOPIC 03/23/18 20:00 04/13/18 19:59 03/26/18 20:34 Dextrose/ Electrolytes 1,000 ml @ 50 mls/hr Q20H IV 03/23/18 17:30 04/09/18 17:29 03/27/18 00:15 Diltiazem HCl (Cardizem) 60 mg EVERY 8 HOURS PEG 03/27/18 14:00 04/25/18 21:59 03/27/18 14:00 Gabapentin (Neurontin) 300 mg TID PEG 03/26/18 18:00 04/25/18 17:59 03/27/18 18:21 Ipratropium [place] (Atrovent) 500 mcg Q4H PRN HHN Shortness of Breath 03/23/18 19:00 03/28/18 18:59 03/27/18 07:20 Levalbuterol HCl (Xopenex) 1.25 mg Q4H PRN HHN Shortness of Breath 03/23/18 19:00 03/28/18 18:59 03/27/18 12:42 Metronidazole (Flagyl) 500 mg Q8HR GT 03/27/18 14:00 04/03/18 13:59 03/27/18 15:03 Nitroglycerin (Ntg) 0.4 mg Q5M PRN SL Prn Chest Pain 03/23/18 16:35 04/05/18 17:10 Norepinephrine Bitartrate 4 mg/ Dextrose 250 ml @ 0 mls/hr Q24H IV 03/23/18 18:30 04/22/18 18:29 03/23/18 23:52 Olanzapine (ZyPREXA) 2.5 mg Q6H PRN GT agitation 03/26/18 16:00 04/07/18 15:59 Ondansetron HCl (Zofran) 4 mg Q6H PRN IVP Nausea & Vomiting 03/23/18 16:00 04/05/18 15:59 Pantoprazole (Protonix) 40 mg EVERY 12 HOURS IVP 03/27/18 21:00 04/26/18 20:59 Polyethylene Glycol (Miralax) 17 gm DAILYPRN PRN GT Constipation 03/26/18 16:00 04/22/18 15:59 Promethazine HCl/ Codeine (Phenergan with Codeine) 5 ml Q4H PRN PEG For Cough 03/26/18 16:00 04/05/18 17:11 Tamsulosin HCl (Flomax) 0.4 mg BEDTIME ORAL 03/23/18 21:00 04/05/18 20:59 03/26/18 20:34 Vancomycin HCl (Vanco rx to dose) 1 ea DAILY PRN MISC Per rx protocol 03/24/18 09:00 04/14/18 10:59 Vancomycin HCl 1 gm/Dextrose 275 ml @ 183.708 mls/hr Q12H IVPB 03/24/18 03:00 04/01/18 02:59 03/27/18 15:09 Allergies: Coded Allergies: No Known Allergies (Unverified , 03/06/18) ROS Limited/Unobtainable: Yes Subjective 87 YO F admitted with hematuria and gen weakness. Now pyelonephritis respiratory distress and sepsis. Cover for Int Med-Dr Scott. ICU. On levophed ; Tolerating venturi mask Objective Last Vital Signs Date Time Temp Pulse Resp B/P (MAP) Pulse Ox O2 Delivery O2 Flow Rate FiO2 03/27/18 17:00 99 21 98/52 (67) 100 03/27/18 16:00 98.7 03/27/18 16:00 Venturi Mask 03/27/18 12:59 12.0 50 Laboratory Tests Test 03/27/18 06:34 White Blood Count 12.1 K/UL (4.8-10.8) H Red Blood Count 3.33 M/UL (4.20-5.40) L Hemoglobin 10.2 G/DL (12.0-16.0) L Hematocrit 31.5 % (37.0-47.0) L Mean Corpuscular Volume 95 FL (80-99) Mean Corpuscular Hemoglobin 30.6 PG (27.0-31.0) Mean Corpuscular Hemoglobin Concent 32.3 G/DL (32.0-36.0) Red Cell Distribution Width 15.9 % (11.6-14.8) H Platelet Count 315 K/UL (150-450) Mean Platelet Volume 5.0 FL (6.5-10.1) L Neutrophils (%) (Auto) 76.7 % (45.0-75.0) H Lymphocytes (%) (Auto) 13.1 % (20.0-45.0) L Monocytes (%) (Auto) 9.1 % (1.0-10.0) Eosinophils (%) (Auto) 0.6 % (0.0-3.0) Basophils (%) (Auto) 0.6 % (0.0-2.0) Sodium Level 137 MMOL/L (136-145) Potassium Level 4.6 MMOL/L (3.5-5.1) Chloride Level 103 MMOL/L (98-107) Carbon Dioxide Level 32 MMOL/L (21-32) Anion Gap 2 mmol/L (5-15) L Blood Urea Nitrogen 10 mg/dL (7-18) Creatinine 0.5 MG/DL (0.55-1.30) L Estimat Glomerular Filtration Rate mL/min (>60) Glucose Level 118 MG/DL (74-106) H Calcium Level 8.5 MG/DL (8.5-10.1) Total Bilirubin 0.4 MG/DL (0.2-1.0) Aspartate Amino Transf (AST/SGOT) 23 U/L (15-37) Alanine Aminotransferase (ALT/SGPT) 12 U/L (12-78) Alkaline Phosphatase 127 U/L (46-116) H Pro-B-Type Natriuretic Peptide 2798 pg/mL (0-125) H Total Protein 5.3 G/DL (6.4-8.2) L Albumin 1.3 G/DL (3.4-5.0) L Globulin 4.0 g/dL Albumin/Globulin Ratio 0.3 (1.0-2.7) L Intake and Output 03/26/18 03/27/18 19:00 07:00 Intake Total 1507.416 ml 1150 ml Output Total 860 ml 2400 ml Balance 647.416 ml -1250 ml Intake Free Water 60 ml IV Total 967.416 ml 550 ml Tube Feeding 540 ml 540 ml Output Urine Total 860 ml 1650 ml Stool Total 750 ml Objective PHYSICAL EXAMINATION: GENERAL: The patient is a well-developed and well-nourished white female, in no apparent distress. HEENT: Eyes, pupils are equal and responsive to light and accommodation. Extraocular movements are intact. NECK: Supple without lymphadenopathy. CHEST: crackles and rales at bases; Decreased breath sounds at bilateral bases. Otherwise, clear to auscultation without wheezes or rales. CARDIOVASCULAR: Tachycardic. Regular rate and rhythm. S1, S2 are normal without murmurs, rubs, or gallops. ABDOMEN: Soft, nontender, and nondistended. Positive bowel sounds. No evidence of hepatosplenomegaly. Currently, no rebound or guarding noted. EXTREMITIES: Negative for clubbing, cyanosis, or edema. RECTAL/GENITAL: Deferred. NEUROLOGIC: Cranial nerves II through XII are grossly intact without focal deficits. Assessment/Plan Problem List: (1) Pyelonephritis Assessment & Plan: Pseudamonas and strep. See ID note-Continue cefepime and vanco (2) Sepsis (3) HTN (hypertension) Assessment & Plan: Currently hypotensive (4) Hypercholesteremia (5) Sacral decubitus ulcer, stage IV Assessment & Plan: See surgery note-dr Ramsay (6) Urinary tract infection Assessment & Plan: pseudamonas; continue cefepime per ID (7) Pneumonia Assessment & Plan: New RLL. Previously MRSA. Continue vanco per ID (8) Atrial fibrillation with RVR Assessment & Plan: Sinus. Continue amiodrone per cardiology (9) Respiratory distress Assessment & Plan: On venturi mask Shankar Betts MD Mar 27, 2018 18:24
[2018-03-27] MEDS: Pantoprazole Inj IVP SCH (20:42)
[2018-03-27] MEDS: Dyna-Hex 2% Top Sol 2oz TOPIC SCH (20:42)
[2018-03-27] MEDS: Tamsulosin 0.4mg cap ORAL SCH (20:42)
--- NOTE | 2018-03-27 23:35 | General Progress Note ---
Assessment/Plan Assessment/Plan Zyprexa prn recommend palliative care/hospice the pt lacks capacity to make decisions. Ativan prn The son is not calling back to our phone calls Subjective Neurologic/Psychiatric: Reports: anxiety Allergies: Coded Allergies: No Known Allergies (Unverified , 03/06/18) Subjective confused no changes the pt is the same dystonic Objective Last 24 Hour Vital Signs Date Time Temp Pulse Resp B/P (MAP) Pulse Ox O2 Delivery O2 Flow Rate FiO2 03/27/18 23:00 106 27 106/51 (69) 100 03/27/18 22:48 107 106/51 03/27/18 22:00 102 21 49/52 (51) 100 03/27/18 21:00 98.6 107 22 101/50 (67) 98 03/27/18 20:00 111 34 108/55 (72) 100 03/27/18 20:00 106 03/27/18 20:00 Venturi Mask 03/27/18 19:27 110 32 99 Venturi Mask 12.0 50 03/27/18 19:19 Venturi Mask 12.0 50 03/27/18 19:19 99 Venturi Mask 12.0 50 03/27/18 19:18 110 34 99 Venturi Mask 12.0 50 03/27/18 19:00 98.6 109 32 108/60 (76) 100 03/27/18 18:30 107/60 03/27/18 18:00 102 21 49/52 (51) 100 03/27/18 17:00 99 21 98/52 (67) 100 03/27/18 16:00 98.7 105 23 91/45 (60) 100 03/27/18 16:00 Venturi Mask 03/27/18 16:00 101 03/27/18 15:00 103 14 94/44 (61) 99 03/27/18 14:00 109 20 107/59 (75) 98 03/27/18 14:00 104 94/49 03/27/18 13:00 109 16 104/54 (71) 96 03/27/18 12:59 128 24 96 Venturi Mask 12.0 50 03/27/18 12:38 126 31 99 Venturi Mask 12.0 50 03/27/18 12:00 98.7 113 33 124/59 (80) 96 03/27/18 12:00 Venturi Mask 03/27/18 12:00 105 03/27/18 11:00 102 32 107/50 (69) 90 03/27/18 10:00 101 32 93/43 (60) 90 03/27/18 09:00 92 20 96/49 (65) 97 03/27/18 08:00 Venturi Mask 15.0 03/27/18 08:00 102 03/27/18 08:00 98.0 104 19 96/48 (64) 96 03/27/18 07:39 98 25 98 Venturi Mask 12.0 50 03/27/18 07:23 97 23 96 Venturi Mask 12.0 50 03/27/18 07:23 Venturi Mask 14.0 55 03/27/18 07:23 96 Venturi Mask 14.0 55 03/27/18 07:00 95 21 95/45 (62) 98 03/27/18 06:00 102 23 90/50 (63) 98 03/27/18 05:46 88 88/58 03/27/18 05:00 88 21 88/58 (68) 100 03/27/18 04:00 96 20 93/59 (70) 100 03/27/18 04:00 120 03/27/18 04:00 Venturi Mask 15.0 03/27/18 03:00 130 20 93/56 (68) 94 03/27/18 02:00 130 20 95/41 (59) 94 03/27/18 00:16 84 21 99 Venturi Mask 12.0 50 03/27/18 00:06 85 25 94 Venturi Mask 14.0 55 03/27/18 00:00 Venturi Mask 15.0 03/27/18 00:00 98.9 91 22 98/49 (65) 97 03/26/18 23:56 85 19 Venturi Mask 15.0 55 Intake and Output 03/26/18 03/27/18 19:00 07:00 Intake Total 1507.416 ml 1150 ml Output Total 860 ml 2400 ml Balance 647.416 ml -1250 ml Intake Free Water 60 ml IV Total 967.416 ml 550 ml Tube Feeding 540 ml 540 ml Output Urine Total 860 ml 1650 ml Stool Total 750 ml Laboratory Tests 03/27/18 06:34: White Blood Count 12.1H, Red Blood Count 3.33L, Hemoglobin 10.2L, Hematocrit 31.5L, Mean Corpuscular Volume 95, Mean Corpuscular Hemoglobin 30.6, Mean Corpuscular Hemoglobin Concent 32.3, Red Cell Distribution Width 15.9H, Platelet Count 315, Mean Platelet Volume 5.0L, Neutrophils (%) (Auto) 76.7H, Lymphocytes (%) (Auto) 13.1L, Monocytes (%) (Auto) 9.1, Eosinophils (%) (Auto) 0.6, Basophils (%) (Auto) 0.6, Sodium Level 137, Potassium Level 4.6, Chloride Level 103, Carbon Dioxide Level 32, Anion Gap 2L, Blood Urea Nitrogen 10, Creatinine 0.5L, Estimat Glomerular Filtration Rate , Glucose Level 118H, Calcium Level 8.5, Total Bilirubin 0.4, Aspartate Amino Transf (AST/SGOT) 23, Alanine Aminotransferase (ALT/SGPT) 12, Alkaline Phosphatase 127H, Pro-B-Type Natriuretic Peptide 2798H, Total Protein 5.3L, Albumin 1.3L, Globulin 4.0, Albumin/Globulin Ratio 0.3L Height (Feet): 5 Height (Inches): 3.00 Weight (Pounds): 150 Bj Martinez MD Mar 27, 2018 23:35
[2018-03-28] VITALS (31 sets, daily range): BP systolic 52–133; BP diastolic 22–93
[2018-03-28] MEDS: Acetaminophen 650mg/20.3ml PEG PRN ×2 (01:29→08:05)
[2018-03-28] MEDS: Ipratropium 0.02% Inh Soln 2.5ml UD HHN PRN ×2 (01:48→21:10)
[2018-03-28] MEDS: Acetylcysteine 20% Soln 4ml HHN SCH ×4 (01:48→21:10)
[2018-03-28] MEDS: Vancomycin 1 GM in D5W 275 ML IVPB SCH (03:00)
[2018-03-28] MEDS: Vancomycin 750mg/NS 250ml IVPB SCH ×2 (04:37→16:45)
[2018-03-28] MEDS: dilTIAZem HCl 60mg tab PEG SCH ×2 (06:00→06:41)
[2018-03-28] MEDS: metroNIDAZOLE 500mg tab GT SCH ×3 (06:01→22:21)
[2018-03-28 06:20] LABS: BASOPHILS % (AUTO) 0.7 % (0.0-2.0); EOSINOPHILS % (AUTO) 0.4 % (0.0-3.0); HEMATOCRIT 32.3 % (37.0-47.0); HEMOGLOBIN 10.2 G/DL (12.0-16.0); LYMPHOCYTES % (AUTO) 15.2 % (20.0-45.0); MEAN CORPUSCULAR VOLUME 97 FL (80-99); MONOCYTES % (AUTO) 8.2 % (1.0-10.0); NEUTROPHILS % (AUTO) 75.5 % (45.0-75.0); PLATELET COUNT 308 K/UL (150-450); RED BLOOD COUNT 3.33 M/UL (4.20-5.40); RED CELL DISTRIBUTION WIDTH 15.8 % (11.6-14.8); WHITE BLOOD COUNT 11.6 K/UL (4.8-10.8)
[2018-03-28 06:41] LABS: ALANINE AMINOTRANSFERASE 15 U/L (12-78); ALBUMIN 1.2 G/DL (3.4-5.0); ALBUMIN/GLOBULIN RATIO 0.3 (1.0-2.7); ALKALINE PHOSPHATASE 113 U/L (46-116); ANION GAP 1 mmol/L (5-15); ASPARTATE AMINO TRANSFERASE 38 U/L (15-37); BILIRUBIN,TOTAL 0.3 MG/DL (0.2-1.0); BLOOD UREA NITROGEN 9 mg/dL (7-18); CARBON DIOXIDE 33 MMOL/L (21-32); CHLORIDE 103 MMOL/L (98-107); CREATININE 0.4 MG/DL (0.55-1.30); POTASSIUM 4.8 MMOL/L (3.5-5.1); SODIUM 137 MMOL/L (136-145)
[2018-03-28] MEDS: Levalbuterol Inh UD 1.25mg/0.5ml HHN PRN ×3 (07:58→21:10)
[2018-03-28] MEDS: Amiodarone 200mg tab PEG SCH (08:06)
[2018-03-28] MEDS: Pantoprazole Inj IVP SCH ×2 (08:06→21:06)
[2018-03-28] MEDS: Gabapentin 300 MG/6 ML Soln PEG SCH ×3 (08:06→18:19)
[2018-03-28] MEDS ORDERED: Protamine Sulfate Inj IV SCH (09:00)
[2018-03-28] MEDS ORDERED: Digoxin 0.5mg/2ml Inj IVP SCH (09:15)
[2018-03-28] MEDS ORDERED: dilTIAZem HCl 25mg/5ml Inj IVP SCH (09:15)
--- NOTE | 2018-03-28 10:19 | Infectious Diseases Prog Note ---
Assessment/Plan Assessment/Plan Sepsis, resolved 2ry to UTI c/w bacteremia and prob early PNA -u/a wbc tntc, nit neg, luek +3; ucx >100k PsA (R cipro/levo, otherwise S), E. fecalis (S Amp, vanco) -03/06 Bcx 4/ P.mirabiis (R cipro, I Levo; otherwise S), 03/21 MRSE ( contaminant); 03/07 Neg Probable Pneum : -CXR: Subtle patchy opacities in the right upper lung raising question for developing pneumonia. Clinical correlation/follow-up recommended. -influenza sc neg -sp cx MRSA, C. albicans (Colonizer) 03/19/17 - CT C/A/P - Bilateral basilar pneumonia versus atelectasis. Small to moderate left pleural effusion and a small right pleural effusion noted. 03/19/18 UCx - Yeast 03/23/18 CXR - B/L consolidation R>L 03/22/09 SpCx - MRSA, P.a. and NF Low grade fever, SP Leukocytosis - 21 FTT HTN Afib dysphagia HLD Dementia contractures Plan: - Continue flagyl #11/27, IV Vanco d# 03/01 and Cefepime # for PNA (Asp PNA?) -03/13 SP IV Vancomycin #7 -03/06 SP Meropenem x1 -Monitor CBC/CMP, temperatures -aspiration precautions Subjective Allergies: Coded Allergies: No Known Allergies (Unverified , 03/06/18) Subjective Opens eyes Afebrile On Ventimask Leukocytosis improving Objective Vital Signs Last 24 Hour Vital Signs Date Time Temp Pulse Resp B/P (MAP) Pulse Ox O2 Delivery O2 Flow Rate FiO2 03/28/18 10:15 120 96/61 03/28/18 09:30 158 106/67 03/28/18 09:29 152 03/28/18 08:35 98.0 03/28/18 08:16 126 24 95 Venturi Mask 14.0 55 03/28/18 08:06 Venturi Mask 10.0 45 03/28/18 08:06 91 Venturi Mask 10.0 45 03/28/18 08:06 122 26 99 Venturi Mask 10.0 45 03/28/18 07:00 110 26 106/56 (73) 100 03/28/18 06:41 138 124/68 03/28/18 06:00 106 92/46 03/28/18 06:00 123 42 109/50 (69) 99 03/28/18 05:00 98.8 106 17 92/46 (61) 90 03/28/18 04:00 106 29 103/57 (72) 100 03/28/18 04:00 Venturi Mask 03/28/18 04:00 106 03/28/18 03:00 106 32 95/50 (65) 100 03/28/18 02:00 106 27 101/51 (68) 100 03/28/18 01:56 112 31 100 Venturi Mask 10.0 45 03/28/18 01:48 112 24 99 Venturi Mask 12.0 50 03/28/18 01:00 106 34 113/59 (77) 100 03/28/18 00:00 99.2 106 27 95/50 (65) 100 03/28/18 00:00 Venturi Mask 03/27/18 23:00 106 27 106/51 (69) 100 03/27/18 22:48 107 106/51 03/27/18 22:00 102 21 49/52 (51) 100 03/27/18 21:00 98.6 107 22 101/50 (67) 98 03/27/18 20:00 111 34 108/55 (72) 100 03/27/18 20:00 106 03/27/18 20:00 Venturi Mask 03/27/18 19:27 110 32 99 Venturi Mask 12.0 50 03/27/18 19:19 Venturi Mask 12.0 50 03/27/18 19:19 99 Venturi Mask 12.0 50 03/27/18 19:18 110 34 99 Venturi Mask 12.0 50 03/27/18 19:00 98.6 109 32 108/60 (76) 100 03/27/18 18:30 107/60 03/27/18 18:00 102 21 49/52 (51) 100 03/27/18 17:00 99 21 98/52 (67) 100 03/27/18 16:00 98.7 105 23 91/45 (60) 100 03/27/18 16:00 Venturi Mask 03/27/18 16:00 101 03/27/18 15:00 103 14 94/44 (61) 99 03/27/18 14:00 109 20 107/59 (75) 98 03/27/18 14:00 104 94/49 03/27/18 13:00 109 16 104/54 (71) 96 03/27/18 12:59 128 24 96 Venturi Mask 12.0 50 03/27/18 12:38 126 31 99 Venturi Mask 12.0 50 03/27/18 12:00 98.7 113 33 124/59 (80) 96 03/27/18 12:00 Venturi Mask 03/27/18 12:00 105 03/27/18 11:00 102 32 107/50 (69) 90 Height (Feet): 5 Height (Inches): 3.00 Weight (Pounds): 148 Objective General: NAD, On Ventimask HEENT: NCAT, MMM Respiratory: Course B/L, No W Cardiovascular : tachycardia, systolic murmur, irregularly irregular Gastrointestinal: soft, non-distended, colostomy bag in place and PEG Neurologic: non-verbal Laboratory Tests Test 03/28/18 02:10 03/28/18 05:00 03/28/18 08:30 Vancomycin Level Trough 23.5 ug/mL (5.0-12.0) H White Blood Count 11.6 K/UL (4.8-10.8) H Red Blood Count 3.33 M/UL (4.20-5.40) L Hemoglobin 10.2 G/DL (12.0-16.0) L Hematocrit 32.3 % (37.0-47.0) L Mean Corpuscular Volume 97 FL (80-99) Mean Corpuscular Hemoglobin 30.5 PG (27.0-31.0) Mean Corpuscular Hemoglobin Concent 31.5 G/DL (32.0-36.0) L Red Cell Distribution Width 15.8 % (11.6-14.8) H Platelet Count 308 K/UL (150-450) Mean Platelet Volume 4.3 FL (6.5-10.1) L Neutrophils (%) (Auto) 75.5 % (45.0-75.0) H Lymphocytes (%) (Auto) 15.2 % (20.0-45.0) L Monocytes (%) (Auto) 8.2 % (1.0-10.0) Eosinophils (%) (Auto) 0.4 % (0.0-3.0) Basophils (%) (Auto) 0.7 % (0.0-2.0) Sodium Level 137 MMOL/L (136-145) Potassium Level 4.8 MMOL/L (3.5-5.1) Chloride Level 103 MMOL/L (98-107) Carbon Dioxide Level 33 MMOL/L (21-32) H Anion Gap 1 mmol/L (5-15) L Blood Urea Nitrogen 9 mg/dL (7-18) Creatinine 0.4 MG/DL (0.55-1.30) L Estimat Glomerular Filtration Rate mL/min (>60) Glucose Level 106 MG/DL (74-106) Calcium Level 8.0 MG/DL (8.5-10.1) L Total Bilirubin 0.3 MG/DL (0.2-1.0) Aspartate Amino Transf (AST/SGOT) 38 U/L (15-37) H Alanine Aminotransferase (ALT/SGPT) 15 U/L (12-78) Alkaline Phosphatase 113 U/L (46-116) Pro-B-Type Natriuretic Peptide 2393 pg/mL (0-125) H Total Protein 4.8 G/DL (6.4-8.2) L Albumin 1.2 G/DL (3.4-5.0) L Globulin 3.6 g/dL Albumin/Globulin Ratio 0.3 (1.0-2.7) L Arterial Blood pH 7.482 (7.350-7.450) Arterial Blood Partial Pressure CO2 45.1 mmHg (35.0-45.0) H Arterial Blood Partial Pressure O2 67.7 mmHg (75.0-100.0) L Arterial Blood HCO3 33.0 mmol/L (22.0-26.0) H Arterial Blood Oxygen Saturation 93.8 % (95-100) L Arterial Blood Base Excess 8.6 (-2-2) H Temo Test Positive Current Medications Medications (Trade) Dose Ordered Sig/Cele Route PRN Reason Start Time Stop Time Status Last Admin Dose Admin Acetaminophen (Tylenol) 650 mg Q4H PRN PEG fever (temp>100.5F) 03/26/18 16:00 04/17/18 05:44 03/28/18 08:05 Acetylcysteine (Mucomyst) 200 mg Q6HRT HHN 03/23/18 19:00 04/22/18 00:59 03/28/18 07:58 Amiodarone HCl (Cordarone) 200 mg DAILY PEG 03/27/18 09:00 04/24/18 12:29 03/28/18 08:06 Cefepime HCl 1 gm/ Dextrose 55 ml @ 110 mls/hr Q24H IVPB 03/27/18 14:00 04/03/18 13:59 03/27/18 15:03 Chlorhexidine Gluconate (Sahra-Hex 2%) 1 applic DAILY@2000 TOPIC 03/23/18 20:00 04/13/18 19:59 03/27/18 20:42 Dextrose/ Electrolytes 1,000 ml @ 50 mls/hr Q20H IV 03/23/18 17:30 04/09/18 17:29 03/27/18 20:43 Diltiazem HCl (Cardizem) 60 mg EVERY 8 HOURS PEG 03/27/18 14:00 04/25/18 21:59 03/28/18 06:41 Diltiazem HCl 125 mg/Dextrose 125 ml @ 0 mls/hr Q24H IV 03/28/18 10:00 03/29/18 09:59 03/28/18 10:15 Gabapentin (Neurontin) 300 mg TID PEG 03/26/18 18:00 04/25/18 17:59 03/28/18 08:06 Ipratropium [place] (Atrovent) 500 mcg Q4H PRN HHN Shortness of Breath 03/23/18 19:00 03/28/18 18:59 03/28/18 01:48 Levalbuterol HCl (Xopenex) 1.25 mg Q4H PRN HHN Shortness of Breath 03/23/18 19:00 03/28/18 18:59 03/28/18 07:58 Metronidazole (Flagyl) 500 mg Q8HR GT 03/27/18 14:00 04/03/18 13:59 03/28/18 06:01 Nitroglycerin (Ntg) 0.4 mg Q5M PRN SL Prn Chest Pain 03/23/18 16:35 04/05/18 17:10 Norepinephrine Bitartrate 4 mg/ Dextrose 250 ml @ 0 mls/hr Q24H IV 03/23/18 18:30 04/22/18 18:29 03/23/18 23:52 Olanzapine (ZyPREXA) 2.5 mg Q6H PRN GT agitation 03/26/18 16:00 04/07/18 15:59 Ondansetron HCl (Zofran) 4 mg Q6H PRN IVP Nausea & Vomiting 03/23/18 16:00 04/05/18 15:59 Pantoprazole (Protonix) 40 mg EVERY 12 HOURS IVP 03/27/18 21:00 04/26/18 20:59 03/28/18 08:06 Polyethylene Glycol (Miralax) 17 gm DAILYPRN PRN GT Constipation 03/26/18 16:00 04/22/18 15:59 Promethazine HCl/ Codeine (Phenergan with Codeine) 5 ml Q4H PRN PEG For Cough 03/26/18 16:00 04/05/18 17:11 Tamsulosin HCl (Flomax) 0.4 mg BEDTIME ORAL 03/23/18 21:00 04/05/18 20:59 03/27/18 20:42 Vancomycin HCl (Vanco rx to dose) 1 ea DAILY PRN MISC Per rx protocol 03/24/18 09:00 04/14/18 10:59 Vancomycin/Sodium Chloride 250 ml @ 166.667 mls/hr Q12H IVPB 03/28/18 04:00 04/02/18 03:59 03/28/18 04:37 Pacheco Umana MD Mar 28, 2018 10:19
--- NOTE | 2018-03-28 10:20 | Pulmonolgy Critical Care Note ---
Critical Care - Asmt/Plan Problems: (1) Respiratory distress (2) Pneumonia (3) Sacral decubitus ulcer, stage IV (4) Protein-calorie malnutrition, severe (5) At high risk for aspiration Respiratory: monitor respiratory rate, adjust FIO2 Cardiac: continue to monitor HR/BP Renal: F/U I&O Infectious Disease: check cultures, continue antibiotics Gastrointestinal: continue feedings/current rate Endocrine: monitor blood sugar Neurologic: PRN Ativan Affect: PRN ativan Time Spent (Minutes): 40 Notes Reviewed: 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 with: nurses, consultants, residential case managermanager generation - Objective Last 24 Hour Vital Signs Date Time Temp Pulse Resp B/P (MAP) Pulse Ox O2 Delivery O2 Flow Rate FiO2 03/28/18 10:15 120 96/61 03/28/18 09:30 158 106/67 03/28/18 09:29 152 03/28/18 08:35 98.0 03/28/18 08:16 126 24 95 Venturi Mask 14.0 55 03/28/18 08:06 Venturi Mask 10.0 45 03/28/18 08:06 91 Venturi Mask 10.0 45 03/28/18 08:06 122 26 99 Venturi Mask 10.0 45 03/28/18 07:00 110 26 106/56 (73) 100 03/28/18 06:41 138 124/68 03/28/18 06:00 106 92/46 03/28/18 06:00 123 42 109/50 (69) 99 03/28/18 05:00 98.8 106 17 92/46 (61) 90 03/28/18 04:00 106 29 103/57 (72) 100 03/28/18 04:00 Venturi Mask 03/28/18 04:00 106 03/28/18 03:00 106 32 95/50 (65) 100 03/28/18 02:00 106 27 101/51 (68) 100 03/28/18 01:56 112 31 100 Venturi Mask 10.0 45 03/28/18 01:48 112 24 99 Venturi Mask 12.0 50 03/28/18 01:00 106 34 113/59 (77) 100 03/28/18 00:00 99.2 106 27 95/50 (65) 100 03/28/18 00:00 Venturi Mask 03/27/18 23:00 106 27 106/51 (69) 100 03/27/18 22:48 107 106/51 03/27/18 22:00 102 21 49/52 (51) 100 03/27/18 21:00 98.6 107 22 101/50 (67) 98 03/27/18 20:00 111 34 108/55 (72) 100 03/27/18 20:00 106 03/27/18 20:00 Venturi Mask 03/27/18 19:27 110 32 99 Venturi Mask 12.0 50 03/27/18 19:19 Venturi Mask 12.0 50 03/27/18 19:19 99 Venturi Mask 12.0 50 03/27/18 19:18 110 34 99 Venturi Mask 12.0 50 03/27/18 19:00 98.6 109 32 108/60 (76) 100 03/27/18 18:30 107/60 03/27/18 18:00 102 21 49/52 (51) 100 03/27/18 17:00 99 21 98/52 (67) 100 03/27/18 16:00 98.7 105 23 91/45 (60) 100 03/27/18 16:00 Venturi Mask 03/27/18 16:00 101 03/27/18 15:00 103 14 94/44 (61) 99 03/27/18 14:00 109 20 107/59 (75) 98 03/27/18 14:00 104 94/49 03/27/18 13:00 109 16 104/54 (71) 96 03/27/18 12:59 128 24 96 Venturi Mask 12.0 50 03/27/18 12:38 126 31 99 Venturi Mask 12.0 50 03/27/18 12:00 98.7 113 33 124/59 (80) 96 03/27/18 12:00 Venturi Mask 03/27/18 12:00 105 03/27/18 11:00 102 32 107/50 (69) 90 Status: awake Condition: critical HEENT: atraumatic Lungs: rales, rhonchi Heart: HR/BP stable Abdomen: soft, non-tender Extremities: no C/C/E, edema Decubiti: location Accucheck: 111 Critical Care - Subjective Interval Events: still rapid afib, got digoxin Condition: critical EKG Rhythm: Sinus Rhythm FI02: 55 Sputum Amount: Moderate Tube Feeding Amount: 45 I&O: Intake and Output 03/27/18 03/28/18 19:00 07:00 Intake Total 1530 ml 1200 ml Output Total 715 ml 1630 ml Balance 815 ml -430 ml Intake Free Water 170 ml 60 ml IV Total 880 ml 600 ml Tube Feeding 480 ml 540 ml Output Urine Total 690 ml 1230 ml Stool Total 25 ml 400 ml CXR: no change Labs: Laboratory Tests Test 03/28/18 02:10 03/28/18 05:00 03/28/18 08:30 Vancomycin Level Trough 23.5 ug/mL (5.0-12.0) H White Blood Count 11.6 K/UL (4.8-10.8) H Red Blood Count 3.33 M/UL (4.20-5.40) L Hemoglobin 10.2 G/DL (12.0-16.0) L Hematocrit 32.3 % (37.0-47.0) L Mean Corpuscular Volume 97 FL (80-99) Mean Corpuscular Hemoglobin 30.5 PG (27.0-31.0) Mean Corpuscular Hemoglobin Concent 31.5 G/DL (32.0-36.0) L Red Cell Distribution Width 15.8 % (11.6-14.8) H Platelet Count 308 K/UL (150-450) Mean Platelet Volume 4.3 FL (6.5-10.1) L Neutrophils (%) (Auto) 75.5 % (45.0-75.0) H Lymphocytes (%) (Auto) 15.2 % (20.0-45.0) L Monocytes (%) (Auto) 8.2 % (1.0-10.0) Eosinophils (%) (Auto) 0.4 % (0.0-3.0) Basophils (%) (Auto) 0.7 % (0.0-2.0) Sodium Level 137 MMOL/L (136-145) Potassium Level 4.8 MMOL/L (3.5-5.1) Chloride Level 103 MMOL/L (98-107) Carbon Dioxide Level 33 MMOL/L (21-32) H Anion Gap 1 mmol/L (5-15) L Blood Urea Nitrogen 9 mg/dL (7-18) Creatinine 0.4 MG/DL (0.55-1.30) L Estimat Glomerular Filtration Rate mL/min (>60) Glucose Level 106 MG/DL (74-106) Calcium Level 8.0 MG/DL (8.5-10.1) L Total Bilirubin 0.3 MG/DL (0.2-1.0) Aspartate Amino Transf (AST/SGOT) 38 U/L (15-37) H Alanine Aminotransferase (ALT/SGPT) 15 U/L (12-78) Alkaline Phosphatase 113 U/L (46-116) Pro-B-Type Natriuretic Peptide 2393 pg/mL (0-125) H Total Protein 4.8 G/DL (6.4-8.2) L Albumin 1.2 G/DL (3.4-5.0) L Globulin 3.6 g/dL Albumin/Globulin Ratio 0.3 (1.0-2.7) L Arterial Blood pH 7.482 (7.350-7.450) Arterial Blood Partial Pressure CO2 45.1 mmHg (35.0-45.0) H Arterial Blood Partial Pressure O2 67.7 mmHg (75.0-100.0) L Arterial Blood HCO3 33.0 mmol/L (22.0-26.0) H Arterial Blood Oxygen Saturation 93.8 % (95-100) L Arterial Blood Base Excess 8.6 (-2-2) H Temo Test Positive Rishi Gutierrez MD Mar 28, 2018 10:20
[2018-03-28] MEDS ORDERED: NS 500ML ONE (10:59)
[2018-03-28] MEDS ORDERED: Tubing IV Secondary IV ONE (10:59)
--- NOTE | 2018-03-28 11:55 | Diagnostic Imaging Report ---
Indication: Dyspnea Comparison: 03/27/2018 A single view chest radiograph was obtained. Findings: Vascular congestion suspected. Left pleural effusion suspected. Heart size is stable. Lung volumes are low. Left jugular line is stable. IMPRESSION: No change from one day earlier
--- NOTE | 2018-03-28 14:04 | GI Progress Note ---
Assessment/Plan Problems: (1) Encounter for PEG (percutaneous endoscopic gastrostomy) ICD Codes: Z43.1 - Encounter for attention to gastrostomy SNOMED: 852065298, 524482535 (2) At high risk for aspiration ICD Codes: Z91.89 - Other specified personal risk factors, not elsewhere classified SNOMED: 509708449 (3) Protein-calorie malnutrition, severe ICD Codes: E43 - Unspecified severe protein-calorie malnutrition SNOMED: 084936429 (4) Dysphasia ICD Codes: R47.02 - Dysphasia SNOMED: 28707240 Status: unchanged Status Narrative Discussed with Dr. Velez. Assessment/Plan s/p GT placement GTF and care fu labs Follow-up pulmonary recommendations The patient was seen and examined at bedside and all new and available data was reviewed in the patients chart. I agree with the above findings, impression and plan. (Patient seen earlier today. Signature stamp does not reflect patient encounter time.). - Ernesto Velez MD Subjective Subjective Limited Objective Last 24 Hour Vital Signs Date Time Temp Pulse Resp B/P (MAP) Pulse Ox O2 Delivery O2 Flow Rate FiO2 03/28/18 12:45 99 20 98 Venturi Mask 10.0 45 03/28/18 12:34 99 22 98 Venturi Mask 14.0 55 03/28/18 12:00 Venturi Mask 03/28/18 12:00 103 03/28/18 12:00 99 42 97/49 (65) 97 03/28/18 11:00 106 25 81/46 (58) 97 03/28/18 10:15 120 96/61 03/28/18 10:00 123 37 93/46 (62) 100 03/28/18 09:30 158 106/67 03/28/18 09:29 152 03/28/18 09:00 163 40 90/58 (69) 100 03/28/18 08:35 98.0 03/28/18 08:16 126 24 95 Venturi Mask 14.0 55 03/28/18 08:06 Venturi Mask 10.0 45 03/28/18 08:06 91 Venturi Mask 10.0 45 03/28/18 08:06 122 26 99 Venturi Mask 10.0 45 03/28/18 08:00 98.5 157 42 133/93 (106) 90 03/28/18 08:00 109 03/28/18 08:00 Venturi Mask 03/28/18 07:00 110 26 106/56 (73) 100 03/28/18 06:41 138 124/68 03/28/18 06:00 106 92/46 03/28/18 06:00 123 42 109/50 (69) 99 03/28/18 05:00 98.8 106 17 92/46 (61) 90 03/28/18 04:00 106 29 103/57 (72) 100 03/28/18 04:00 Venturi Mask 03/28/18 04:00 106 03/28/18 03:00 106 32 95/50 (65) 100 03/28/18 02:00 106 27 101/51 (68) 100 03/28/18 01:56 112 31 100 Venturi Mask 10.0 45 03/28/18 01:48 112 24 99 Venturi Mask 12.0 50 03/28/18 01:00 106 34 113/59 (77) 100 03/28/18 00:00 99.2 106 27 95/50 (65) 100 03/28/18 00:00 Venturi Mask 03/27/18 23:00 106 27 106/51 (69) 100 03/27/18 22:48 107 106/51 03/27/18 22:00 102 21 49/52 (51) 100 03/27/18 21:00 98.6 107 22 101/50 (67) 98 03/27/18 20:00 111 34 108/55 (72) 100 03/27/18 20:00 106 03/27/18 20:00 Venturi Mask 03/27/18 19:27 110 32 99 Venturi Mask 12.0 50 03/27/18 19:19 Venturi Mask 12.0 50 03/27/18 19:19 99 Venturi Mask 12.0 50 03/27/18 19:18 110 34 99 Venturi Mask 12.0 50 03/27/18 19:00 98.6 109 32 108/60 (76) 100 03/27/18 18:30 107/60 03/27/18 18:00 102 21 49/52 (51) 100 03/27/18 17:00 99 21 98/52 (67) 100 03/27/18 16:00 98.7 105 23 91/45 (60) 100 03/27/18 16:00 Venturi Mask 03/27/18 16:00 101 03/27/18 15:00 103 14 94/44 (61) 99 Intake and Output 03/27/18 03/28/18 19:00 07:00 Intake Total 1530 ml 1200 ml Output Total 715 ml 1630 ml Balance 815 ml -430 ml Intake Free Water 170 ml 60 ml IV Total 880 ml 600 ml Tube Feeding 480 ml 540 ml Output Urine Total 690 ml 1230 ml Stool Total 25 ml 400 ml Laboratory Tests Test 03/28/18 02:10 03/28/18 05:00 03/28/18 08:30 Vancomycin Level Trough 23.5 ug/mL (5.0-12.0) H White Blood Count 11.6 K/UL (4.8-10.8) H Red Blood Count 3.33 M/UL (4.20-5.40) L Hemoglobin 10.2 G/DL (12.0-16.0) L Hematocrit 32.3 % (37.0-47.0) L Mean Corpuscular Volume 97 FL (80-99) Mean Corpuscular Hemoglobin 30.5 PG (27.0-31.0) Mean Corpuscular Hemoglobin Concent 31.5 G/DL (32.0-36.0) L Red Cell Distribution Width 15.8 % (11.6-14.8) H Platelet Count 308 K/UL (150-450) Mean Platelet Volume 4.3 FL (6.5-10.1) L Neutrophils (%) (Auto) 75.5 % (45.0-75.0) H Lymphocytes (%) (Auto) 15.2 % (20.0-45.0) L Monocytes (%) (Auto) 8.2 % (1.0-10.0) Eosinophils (%) (Auto) 0.4 % (0.0-3.0) Basophils (%) (Auto) 0.7 % (0.0-2.0) Sodium Level 137 MMOL/L (136-145) Potassium Level 4.8 MMOL/L (3.5-5.1) Chloride Level 103 MMOL/L (98-107) Carbon Dioxide Level 33 MMOL/L (21-32) H Anion Gap 1 mmol/L (5-15) L Blood Urea Nitrogen 9 mg/dL (7-18) Creatinine 0.4 MG/DL (0.55-1.30) L Estimat Glomerular Filtration Rate mL/min (>60) Glucose Level 106 MG/DL (74-106) Calcium Level 8.0 MG/DL (8.5-10.1) L Total Bilirubin 0.3 MG/DL (0.2-1.0) Aspartate Amino Transf (AST/SGOT) 38 U/L (15-37) H Alanine Aminotransferase (ALT/SGPT) 15 U/L (12-78) Alkaline Phosphatase 113 U/L (46-116) Pro-B-Type Natriuretic Peptide 2393 pg/mL (0-125) H Total Protein 4.8 G/DL (6.4-8.2) L Albumin 1.2 G/DL (3.4-5.0) L Globulin 3.6 g/dL Albumin/Globulin Ratio 0.3 (1.0-2.7) L Arterial Blood pH 7.482 (7.350-7.450) Arterial Blood Partial Pressure CO2 45.1 mmHg (35.0-45.0) H Arterial Blood Partial Pressure O2 67.7 mmHg (75.0-100.0) L Arterial Blood HCO3 33.0 mmol/L (22.0-26.0) H Arterial Blood Oxygen Saturation 93.8 % (95-100) L Arterial Blood Base Excess 8.6 (-2-2) H Temo Test Positive Height (Feet): 5 Height (Inches): 3.00 Weight (Pounds): 148 General Appearance: no apparent distress Cardiovascular: normal rate Respiratory/Chest: normal breath sounds, no respiratory distress, other - venturi Abdominal Exam: non tender, soft Extremities: normal range of motion, non-tender Thaddeus Galeana NP Mar 28, 2018 14:04
--- NOTE | 2018-03-28 14:12 | Cardiac Electrophysiology PN ---
Assessment/Plan Status Narrative Technically difficult study due to patient was contracted. Study quality precludes accurate assessment of regional wall motion. Normal left ventricular chamber size, systolic function and wall motion. Left ventricular ejection fraction estimated to be 60-65 %. Mild left ventricular hypertrophy. Small circumferential pericardial effusion. Mild left atrial enlargement. Right cardiac chamber sizes are within normal limits. Aortic valve calcification with decreased cusp excursion c/w aortic stenosis. Mildly thickened mitral valve leaflets with normal excursion. Moderate mitral annulus and aortic root calcification. Normal pulmonic valve structure. Normal tricuspid valve structure. Subcostal views not obtainable due to G tube. Assessment/Plan 1. Paroxysmal atrial fibrillation with rapid ventricular response. I ordered 0.25 iv digoxin as well as Cardizem 20 mg ivp and started on Cardizem drip 5 mg/ hr DC Cardizem drip as BP dropped to 70s. Start amiodarone drip. Echo EF 65% 2. Urosepsis. On IV antibiotic per ID. 3. Hypotension, DC Cardizem. IV fluid. 4. Sacral decubitus ulcer. 5. Dementia. 6. Dysphagia. S/P G-tube placement 03/21/17 KEIRY RN Subjective Subjective In ICU SOB , started on Cardizem drip as HR went in atrial fib to 180s despite Amiodarone via GT. Off pressors Objective Last 24 Hour Vital Signs Date Time Temp Pulse Resp B/P (MAP) Pulse Ox O2 Delivery O2 Flow Rate FiO2 03/28/18 12:45 99 20 98 Venturi Mask 10.0 45 03/28/18 12:34 99 22 98 Venturi Mask 14.0 55 03/28/18 12:00 Venturi Mask 03/28/18 12:00 103 03/28/18 12:00 99 42 97/49 (65) 97 03/28/18 11:00 106 25 81/46 (58) 97 03/28/18 10:15 120 96/61 03/28/18 10:00 123 37 93/46 (62) 100 03/28/18 09:30 158 106/67 03/28/18 09:29 152 03/28/18 09:00 163 40 90/58 (69) 100 03/28/18 08:35 98.0 03/28/18 08:16 126 24 95 Venturi Mask 14.0 55 03/28/18 08:06 Venturi Mask 10.0 45 03/28/18 08:06 91 Venturi Mask 10.0 45 03/28/18 08:06 122 26 99 Venturi Mask 10.0 45 03/28/18 08:00 98.5 157 42 133/93 (106) 90 03/28/18 08:00 109 03/28/18 08:00 Venturi Mask 03/28/18 07:00 110 26 106/56 (73) 100 03/28/18 06:41 138 124/68 03/28/18 06:00 106 92/46 03/28/18 06:00 123 42 109/50 (69) 99 03/28/18 05:00 98.8 106 17 92/46 (61) 90 03/28/18 04:00 106 29 103/57 (72) 100 03/28/18 04:00 Venturi Mask 03/28/18 04:00 106 03/28/18 03:00 106 32 95/50 (65) 100 03/28/18 02:00 106 27 101/51 (68) 100 03/28/18 01:56 112 31 100 Venturi Mask 10.0 45 03/28/18 01:48 112 24 99 Venturi Mask 12.0 50 03/28/18 01:00 106 34 113/59 (77) 100 03/28/18 00:00 99.2 106 27 95/50 (65) 100 03/28/18 00:00 Venturi Mask 03/27/18 23:00 106 27 106/51 (69) 100 03/27/18 22:48 107 106/51 03/27/18 22:00 102 21 49/52 (51) 100 03/27/18 21:00 98.6 107 22 101/50 (67) 98 03/27/18 20:00 111 34 108/55 (72) 100 03/27/18 20:00 106 03/27/18 20:00 Venturi Mask 03/27/18 19:27 110 32 99 Venturi Mask 12.0 50 03/27/18 19:19 Venturi Mask 12.0 50 03/27/18 19:19 99 Venturi Mask 12.0 50 03/27/18 19:18 110 34 99 Venturi Mask 12.0 50 03/27/18 19:00 98.6 109 32 108/60 (76) 100 03/27/18 18:30 107/60 03/27/18 18:00 102 21 49/52 (51) 100 03/27/18 17:00 99 21 98/52 (67) 100 03/27/18 16:00 98.7 105 23 91/45 (60) 100 03/27/18 16:00 Venturi Mask 03/27/18 16:00 101 03/27/18 15:00 103 14 94/44 (61) 99 Intake and Output 03/27/18 03/28/18 18:59 06:59 Intake Total 1520 ml 1210 ml Output Total 765 ml 1080 ml Balance 755 ml 130 ml Intake Free Water 110 ml 120 ml IV Total 930 ml 550 ml Tube Feeding 480 ml 540 ml Output Urine Total 740 ml 1080 ml Stool Total 25 ml Laboratory Tests Test 03/28/18 02:10 03/28/18 05:00 03/28/18 08:30 Vancomycin Level Trough 23.5 ug/mL (5.0-12.0) H White Blood Count 11.6 K/UL (4.8-10.8) H Red Blood Count 3.33 M/UL (4.20-5.40) L Hemoglobin 10.2 G/DL (12.0-16.0) L Hematocrit 32.3 % (37.0-47.0) L Mean Corpuscular Volume 97 FL (80-99) Mean Corpuscular Hemoglobin 30.5 PG (27.0-31.0) Mean Corpuscular Hemoglobin Concent 31.5 G/DL (32.0-36.0) L Red Cell Distribution Width 15.8 % (11.6-14.8) H Platelet Count 308 K/UL (150-450) Mean Platelet Volume 4.3 FL (6.5-10.1) L Neutrophils (%) (Auto) 75.5 % (45.0-75.0) H Lymphocytes (%) (Auto) 15.2 % (20.0-45.0) L Monocytes (%) (Auto) 8.2 % (1.0-10.0) Eosinophils (%) (Auto) 0.4 % (0.0-3.0) Basophils (%) (Auto) 0.7 % (0.0-2.0) Sodium Level 137 MMOL/L (136-145) Potassium Level 4.8 MMOL/L (3.5-5.1) Chloride Level 103 MMOL/L (98-107) Carbon Dioxide Level 33 MMOL/L (21-32) H Anion Gap 1 mmol/L (5-15) L Blood Urea Nitrogen 9 mg/dL (7-18) Creatinine 0.4 MG/DL (0.55-1.30) L Estimat Glomerular Filtration Rate mL/min (>60) Glucose Level 106 MG/DL (74-106) Calcium Level 8.0 MG/DL (8.5-10.1) L Total Bilirubin 0.3 MG/DL (0.2-1.0) Aspartate Amino Transf (AST/SGOT) 38 U/L (15-37) H Alanine Aminotransferase (ALT/SGPT) 15 U/L (12-78) Alkaline Phosphatase 113 U/L (46-116) Pro-B-Type Natriuretic Peptide 2393 pg/mL (0-125) H Total Protein 4.8 G/DL (6.4-8.2) L Albumin 1.2 G/DL (3.4-5.0) L Globulin 3.6 g/dL Albumin/Globulin Ratio 0.3 (1.0-2.7) L Arterial Blood pH 7.482 (7.350-7.450) Arterial Blood Partial Pressure CO2 45.1 mmHg (35.0-45.0) H Arterial Blood Partial Pressure O2 67.7 mmHg (75.0-100.0) L Arterial Blood HCO3 33.0 mmol/L (22.0-26.0) H Arterial Blood Oxygen Saturation 93.8 % (95-100) L Arterial Blood Base Excess 8.6 (-2-2) H Temo Test Positive Objective HEAD AND NECK: No JVD. LUNGS: Coarse rhonchi bilaterally. CARDIOVASCULAR: Irregular tachy S1 and S2 with no gallop. ABDOMEN: Status post colostomy. GT in place EXTREMITIES: No pitting edema Fredrick Burk MD Mar 28, 2018 14:12
[2018-03-28] MEDS: Cefepime 1gm in D5W 55ml IVPB SCH (14:18)
[2018-03-28] MEDS ORDERED: NS 275ml ONE (15:37)
[2018-03-28] MEDS: D5 1/2NS w/KCL 10meq 1,000 ML IV SCH ×2 (16:45→23:36)
--- NOTE | 2018-03-28 16:45 | Progress Note ---
DATE: 03/28/2018 SUBJECTIVE: The patient continues to be lethargic, has waxing and waning of consciousness, episodes of agitation. Unable to provide any history due to cognitive impairment. MENTAL STATUS EXAMINATION: The patient has waxing and waning consciousness, confused. Mood is neutral to agitation. Affect is flat. Thought process, there is a paucity of thought content. Thought content, no suicidal or homicidal ideation. ASSESSMENT: 1. Encephalopathy. 2. Dementia. 3. Agitation. PLAN: 1. We will continue the Zyprexa p.r.n. 2. Continue the Ativan p.r.n. 3. we will continue to follow and readjust the medication. Bj Martinez M.D. DR: Kadie JOB#: [id number] CC:
--- NOTE | 2018-03-28 17:22 | Internal Med Progress Note ---
Subjective Physician Name Davian Scott Attending Physician Davian Scott MD Current Medications Medications (Trade) Dose Ordered Sig/Cele Route PRN Reason Start Time Stop Time Status Last Admin Dose Admin Acetaminophen (Tylenol) 650 mg Q4H PRN PEG fever (temp>100.5F) 03/26/18 16:00 04/17/18 05:44 03/28/18 08:05 Acetylcysteine (Mucomyst) 200 mg Q6HRT HHN 03/23/18 19:00 04/22/18 00:59 03/28/18 12:35 Cefepime HCl 1 gm/ Dextrose 55 ml @ 110 mls/hr Q24H IVPB 03/27/18 14:00 04/03/18 13:59 03/28/18 14:18 Chlorhexidine Gluconate (Sahra-Hex 2%) 1 applic DAILY@2000 TOPIC 03/23/18 20:00 04/13/18 19:59 03/27/18 20:42 Dextrose/ Electrolytes 1,000 ml @ 50 mls/hr Q20H IV 03/23/18 17:30 04/09/18 17:29 03/27/18 20:43 Gabapentin (Neurontin) 300 mg TID PEG 03/26/18 18:00 04/25/18 17:59 03/28/18 13:57 Ipratropium [place] (Atrovent) 500 mcg Q4H PRN HHN Shortness of Breath 03/23/18 19:00 03/28/18 18:59 03/28/18 01:48 Levalbuterol HCl (Xopenex) 1.25 mg Q4H PRN HHN Shortness of Breath 03/23/18 19:00 03/28/18 18:59 03/28/18 12:35 Metronidazole (Flagyl) 500 mg Q8HR GT 03/27/18 14:00 04/03/18 13:59 03/28/18 13:57 Nitroglycerin (Ntg) 0.4 mg Q5M PRN SL Prn Chest Pain 03/23/18 16:35 04/05/18 17:10 Norepinephrine Bitartrate 4 mg/ Dextrose 250 ml @ 0 mls/hr Q24H IV 03/23/18 18:30 04/22/18 18:29 03/28/18 14:30 Olanzapine (ZyPREXA) 2.5 mg Q6H PRN GT agitation 03/26/18 16:00 04/07/18 15:59 Ondansetron HCl (Zofran) 4 mg Q6H PRN IVP Nausea & Vomiting 03/23/18 16:00 04/05/18 15:59 Pantoprazole (Protonix) 40 mg EVERY 12 HOURS IVP 03/27/18 21:00 04/26/18 20:59 03/28/18 08:06 Polyethylene Glycol (Miralax) 17 gm DAILYPRN PRN GT Constipation 03/26/18 16:00 04/22/18 15:59 Promethazine HCl/ Codeine (Phenergan with Codeine) 5 ml Q4H PRN PEG For Cough 03/26/18 16:00 04/05/18 17:11 Tamsulosin HCl (Flomax) 0.4 mg BEDTIME ORAL 03/23/18 21:00 04/05/18 20:59 03/27/18 20:42 Vancomycin HCl (Vanco rx to dose) 1 ea DAILY PRN MISC Per rx protocol 03/24/18 09:00 04/14/18 10:59 Vancomycin/Sodium Chloride 250 ml @ 166.667 mls/hr Q12H IVPB 03/28/18 04:00 04/02/18 03:59 03/28/18 16:45 Allergies: Coded Allergies: No Known Allergies (Unverified , 03/06/18) Subjective in ICU, awake, responsive with open eyes, not verbal, NAD, in A Fib with RVR, HR 180 earlier. Objective Last Vital Signs Date Time Temp Pulse Resp B/P (MAP) Pulse Ox O2 Delivery O2 Flow Rate FiO2 03/28/18 16:30 92 28 90/29 (49) 92 03/28/18 16:00 Venturi Mask 03/28/18 13:00 98.0 03/28/18 12:45 10.0 45 Laboratory Tests Test 03/28/18 02:10 03/28/18 05:00 03/28/18 08:30 Vancomycin Level Trough 23.5 ug/mL (5.0-12.0) H White Blood Count 11.6 K/UL (4.8-10.8) H Red Blood Count 3.33 M/UL (4.20-5.40) L Hemoglobin 10.2 G/DL (12.0-16.0) L Hematocrit 32.3 % (37.0-47.0) L Mean Corpuscular Volume 97 FL (80-99) Mean Corpuscular Hemoglobin 30.5 PG (27.0-31.0) Mean Corpuscular Hemoglobin Concent 31.5 G/DL (32.0-36.0) L Red Cell Distribution Width 15.8 % (11.6-14.8) H Platelet Count 308 K/UL (150-450) Mean Platelet Volume 4.3 FL (6.5-10.1) L Neutrophils (%) (Auto) 75.5 % (45.0-75.0) H Lymphocytes (%) (Auto) 15.2 % (20.0-45.0) L Monocytes (%) (Auto) 8.2 % (1.0-10.0) Eosinophils (%) (Auto) 0.4 % (0.0-3.0) Basophils (%) (Auto) 0.7 % (0.0-2.0) Sodium Level 137 MMOL/L (136-145) Potassium Level 4.8 MMOL/L (3.5-5.1) Chloride Level 103 MMOL/L (98-107) Carbon Dioxide Level 33 MMOL/L (21-32) H Anion Gap 1 mmol/L (5-15) L Blood Urea Nitrogen 9 mg/dL (7-18) Creatinine 0.4 MG/DL (0.55-1.30) L Estimat Glomerular Filtration Rate mL/min (>60) Glucose Level 106 MG/DL (74-106) Calcium Level 8.0 MG/DL (8.5-10.1) L Total Bilirubin 0.3 MG/DL (0.2-1.0) Aspartate Amino Transf (AST/SGOT) 38 U/L (15-37) H Alanine Aminotransferase (ALT/SGPT) 15 U/L (12-78) Alkaline Phosphatase 113 U/L (46-116) Pro-B-Type Natriuretic Peptide 2393 pg/mL (0-125) H Total Protein 4.8 G/DL (6.4-8.2) L Albumin 1.2 G/DL (3.4-5.0) L Globulin 3.6 g/dL Albumin/Globulin Ratio 0.3 (1.0-2.7) L Arterial Blood pH 7.482 (7.350-7.450) Arterial Blood Partial Pressure CO2 45.1 mmHg (35.0-45.0) H Arterial Blood Partial Pressure O2 67.7 mmHg (75.0-100.0) L Arterial Blood HCO3 33.0 mmol/L (22.0-26.0) H Arterial Blood Oxygen Saturation 93.8 % (95-100) L Arterial Blood Base Excess 8.6 (-2-2) H Temo Test Positive Intake and Output 03/27/18 03/28/18 18:59 06:59 Intake Total 1520 ml 1210 ml Output Total 765 ml 1080 ml Balance 755 ml 130 ml Intake Free Water 110 ml 120 ml IV Total 930 ml 550 ml Tube Feeding 480 ml 540 ml Output Urine Total 740 ml 1080 ml Stool Total 25 ml Objective General: No acute distress, awake and open eyes HEENT: NCAT, sclera anicteric, PERRL, Neck: Supple, no significant jugular venous distention, Left IJ TLC. Lungs: fair inspiratory effort, Decrease air at bases, no Wheeze or Rales. Heart: Irregular rate and rhythm, normal S1/S2, no murmur, Abdomen: soft, nontender, nondistended. Normoactive bowel sounds, PEG site intact. : [place] cath Extremities: No Cyanosis , clubbing or edema. Left Hell ulceration dressing. Neuro: A&O x 1, Limited due to patient status, Functional Quadriplegia Skin: warm, no rashes, Assessment/Plan Assessment/Plan Sepsis due to UTI Bacteremia Probability early PNA Functional Quadriplegia. HTN Afib with RVR dysphagia HLD Dementia All extremities contracture Multiple Decubitus Ulcer Plan: Abx: Flagyl, Cefepime and Vanco IV Tube feeding @ 45 cc/hr. Full code heparin SQ F/U with labs and cultures. F/U with Dr. Burk recommendation. Davian Scott MD Mar 28, 2018 17:22
[2018-03-28] MEDS: Dyna-Hex 2% Top Sol 2oz TOPIC SCH (20:11)
[2018-03-28] MEDS: Tamsulosin 0.4mg cap ORAL SCH (21:06)
[2018-03-29] VITALS (47 sets, daily range): BP systolic 83–128; BP diastolic 43–84
[2018-03-29] MEDS: Acetylcysteine 20% Soln 4ml HHN SCH ×4 (01:03→19:04)
[2018-03-29] MEDS: Levalbuterol Inh UD 1.25mg/0.5ml HHN PRN ×3 (01:03→19:04)
[2018-03-29] MEDS: Ipratropium 0.02% Inh Soln 2.5ml UD HHN PRN ×3 (01:03→19:04)
[2018-03-29] MEDS: Vancomycin 750mg/NS 250ml IVPB SCH ×2 (04:16→15:47)
[2018-03-29 06:13] LABS: EOSINOPHILS % (AUTO) 0.5 % (0.0-3.0); HEMATOCRIT 28.1 % (37.0-47.0); HEMOGLOBIN 9.1 G/DL (12.0-16.0); LYMPHOCYTES % (AUTO) 7.2 % (20.0-45.0); MEAN CORPUSCULAR VOLUME 95 FL (80-99); MONOCYTES % (AUTO) 10.4 % (1.0-10.0); NEUTROPHILS % (AUTO) 80.9 % (45.0-75.0); PLATELET COUNT 378 K/UL (150-450); RED BLOOD COUNT 2.95 M/UL (4.20-5.40); RED CELL DISTRIBUTION WIDTH 15.8 % (11.6-14.8); WHITE BLOOD COUNT 16.8 K/UL (4.8-10.8)
[2018-03-29] MEDS: metroNIDAZOLE 500mg tab GT SCH ×3 (06:21→21:33)
[2018-03-29 06:44] LABS: ALANINE AMINOTRANSFERASE 13 U/L (12-78); ALBUMIN 1.3 G/DL (3.4-5.0); ALBUMIN/GLOBULIN RATIO 0.4 (1.0-2.7); ALKALINE PHOSPHATASE 130 U/L (46-116); ANION GAP 3 mmol/L (5-15); ASPARTATE AMINO TRANSFERASE 23 U/L (15-37); BILIRUBIN,TOTAL 0.3 MG/DL (0.2-1.0); BLOOD UREA NITROGEN 14 mg/dL (7-18); CALCIUM 8.1 MG/DL (8.5-10.1); CARBON DIOXIDE 29 MMOL/L (21-32); CHLORIDE 105 MMOL/L (98-107); CREATININE 0.5 MG/DL (0.55-1.30); POTASSIUM 4.3 MMOL/L (3.5-5.1); SODIUM 137 MMOL/L (136-145)
[2018-03-29] MEDS: Gabapentin 300 MG/6 ML Soln PEG SCH ×3 (08:25→17:10)
[2018-03-29] MEDS: Pantoprazole Inj IVP SCH ×2 (08:26→20:52)
--- NOTE | 2018-03-29 08:31 | Pulmonolgy Critical Care Note ---
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, 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 with: nurses, consultants, complex case managerrehabilitation center manager - Objective Last 24 Hour Vital Signs Date Time Temp Pulse Resp B/P (MAP) Pulse Ox O2 Delivery O2 Flow Rate FiO2 03/29/18 08:00 Venturi Mask 03/29/18 08:00 117 34 107/60 (76) 98 03/29/18 07:49 107 35 100 Venturi Mask 10.0 45 03/29/18 07:48 Venturi Mask 10.0 45 03/29/18 07:48 100 Venturi Mask 10.0 45 03/29/18 07:40 109 31 100 Venturi Mask 10.0 45 03/29/18 07:30 103 39 112/60 (77) 98 03/29/18 07:00 97.5 104 39 110/60 (77) 100 03/29/18 07:00 110/63 03/29/18 06:00 105 30 112/65 (81) 98 03/29/18 06:00 113/67 03/29/18 05:30 111 30 100/71 (81) 98 03/29/18 05:00 100/73 03/29/18 05:00 102 30 100/73 (82) 98 03/29/18 04:30 100 29 115/63 (80) 97 03/29/18 04:17 109/54 03/29/18 04:00 98.0 111 29 112/54 (73) 97 03/29/18 04:00 Venturi Mask 03/29/18 04:00 112/54 03/29/18 04:00 111 03/29/18 03:30 111 24 109/54 (72) 97 03/29/18 03:00 100 03/29/18 03:00 102/50 03/29/18 03:00 106 23 110/84 (93) 97 03/29/18 02:30 101 22 110/58 (75) 97 03/29/18 02:00 100 22 109/58 (75) 97 03/29/18 02:00 109/58 03/29/18 01:48 100 32 100 Venturi Mask 10.0 45 03/29/18 01:30 115 35 115/57 (76) 97 03/29/18 01:03 93 29 100 Venturi Mask 14.0 55 03/29/18 01:00 104 20 101/56 (71) 96 03/29/18 01:00 100/56 03/29/18 00:30 106 20 100/56 (71) 96 03/29/18 00:00 Venturi Mask 03/29/18 00:00 114/70 03/29/18 00:00 98.2 84 20 114/70 (85) 99 03/28/18 23:36 92/51 03/28/18 23:30 84 20 94/51 (65) 99 03/28/18 23:00 89 20 114/73 (87) 99 03/28/18 23:00 114/70 03/28/18 22:30 86 20 117/69 (85) 99 03/28/18 22:00 110/60 03/28/18 22:00 96 22 110/60 (77) 99 03/28/18 21:30 92 20 108/66 (80) 100 03/28/18 21:20 87 20 100 Venturi Mask 10.0 45 03/28/18 21:10 85 20 100 Venturi Mask 14.0 55 03/28/18 21:00 88 22 121/63 (82) 100 03/28/18 21:00 121/63 03/28/18 20:30 87 19 105/50 (68) 97 03/28/18 20:00 98.4 88 19 107/60 (76) 95 03/28/18 20:00 Venturi Mask 03/28/18 20:00 107/60 03/28/18 19:51 Venturi Mask 14.0 55 03/28/18 19:50 96 Venturi Mask 10.0 45 03/28/18 19:11 79/48 03/28/18 19:00 93 22 79/48 (58) 93 03/28/18 19:00 88 35 79/48 (58) 91 03/28/18 18:30 116 35 110/49 (69) 91 03/28/18 18:00 93 29 95/41 (59) 90 03/28/18 18:00 103/49 03/28/18 17:30 91 29 93/28 (49) 92 03/28/18 17:00 98.2 92 29 95/41 (59) 91 03/28/18 17:00 95/41 03/28/18 16:30 92 28 90/29 (49) 92 03/28/18 16:00 92 03/28/18 16:00 90 18 93/56 (68) 92 03/28/18 16:00 88/52 03/28/18 16:00 Venturi Mask 03/28/18 15:30 88/52 03/28/18 15:00 96/52 03/28/18 15:00 91 21 96/52 (67) 92 03/28/18 14:30 70/22 03/28/18 14:00 73 19 52/26 (35) 92 03/28/18 13:00 98.0 89 20 70/22 (38) 91 03/28/18 12:45 99 20 98 Venturi Mask 10.0 45 03/28/18 12:34 99 22 98 Venturi Mask 14.0 55 03/28/18 12:00 Venturi Mask 03/28/18 12:00 103 03/28/18 12:00 99 42 97/49 (65) 97 03/28/18 11:00 106 25 81/46 (58) 97 03/28/18 10:15 120 96/61 03/28/18 10:00 123 37 93/46 (62) 100 03/28/18 09:30 158 106/67 03/28/18 09:29 152 03/28/18 09:00 163 40 90/58 (69) 100 03/28/18 08:35 98.0 Status: awake Condition: critical HEENT: atraumatic Neck: full ROM Lungs: rales, rhonchi Heart: HR/BP unstable Abdomen: soft, non-tender, feeding tube Accucheck: 111 Critical Care - Subjective ROS Limited/Unobtainable: Yes Condition: critical EKG Rhythm: Atrial Fibrillation FI02: 45 Sputum Amount: Moderate Tube Feeding Amount: 45 I&O: Intake and Output 03/28/18 03/29/18 19:00 07:00 Intake Total 3001.250 ml 2245.84 ml Output Total 1255 ml 1420 ml Balance 1746.250 ml 825.84 ml Intake Free Water 90 ml IV Total 2461.250 ml 1615.84 ml Tube Feeding 540 ml 540 ml Output Urine Total 1005 ml 800 ml Stool Total 250 ml 620 ml # Bowel Movements 2 Labs: Laboratory Tests Test 03/29/18 05:50 White Blood Count 16.8 K/UL (4.8-10.8) H Red Blood Count 2.95 M/UL (4.20-5.40) L Hemoglobin 9.1 G/DL (12.0-16.0) L Hematocrit 28.1 % (37.0-47.0) L Mean Corpuscular Volume 95 FL (80-99) Mean Corpuscular Hemoglobin 31.0 PG (27.0-31.0) Mean Corpuscular Hemoglobin Concent 32.5 G/DL (32.0-36.0) Red Cell Distribution Width 15.8 % (11.6-14.8) H Platelet Count 378 K/UL (150-450) Mean Platelet Volume 4.5 FL (6.5-10.1) L Neutrophils (%) (Auto) 80.9 % (45.0-75.0) H Lymphocytes (%) (Auto) 7.2 % (20.0-45.0) L Monocytes (%) (Auto) 10.4 % (1.0-10.0) H Eosinophils (%) (Auto) 0.5 % (0.0-3.0) Basophils (%) (Auto) 1.0 % (0.0-2.0) Sodium Level 137 MMOL/L (136-145) Potassium Level 4.3 MMOL/L (3.5-5.1) Chloride Level 105 MMOL/L (98-107) Carbon Dioxide Level 29 MMOL/L (21-32) Anion Gap 3 mmol/L (5-15) L Blood Urea Nitrogen 14 mg/dL (7-18) Creatinine 0.5 MG/DL (0.55-1.30) L Estimat Glomerular Filtration Rate mL/min (>60) Glucose Level 153 MG/DL (74-106) H Calcium Level 8.1 MG/DL (8.5-10.1) L Total Bilirubin 0.3 MG/DL (0.2-1.0) Aspartate Amino Transf (AST/SGOT) 23 U/L (15-37) Alanine Aminotransferase (ALT/SGPT) 13 U/L (12-78) Alkaline Phosphatase 130 U/L (46-116) H Pro-B-Type Natriuretic Peptide 3061 pg/mL (0-125) H Total Protein 5.0 G/DL (6.4-8.2) L Albumin 1.3 G/DL (3.4-5.0) L Globulin 3.7 g/dL Albumin/Globulin Ratio 0.4 (1.0-2.7) L Rishi Gutierrez MD Mar 29, 2018 08:31
--- NOTE | 2018-03-29 09:26 | Diagnostic Imaging Report ---
EXAM: XR Chest, 1 View CLINICAL HISTORY: DYSPNEA TECHNIQUE: Frontal view of the chest. COMPARISON: Chest x-ray dated 03/28/18 FINDINGS: Lungs: Persistent prominent interstitial markings, suggesting pulmonary vascular congestion, interstitial edema, or interstitial pneumonitis, not significantly changed. Subsegmental atelectasis versus infiltrates in bilateral lung bases. Low lung volumes, unchanged. Pleural space: Possible small pleural effusions. Heart: Unremarkable. No cardiomegaly. Mediastinum: Unremarkable. Bones/joints: Unremarkable. Tubes, lines and devices: Stable positioning of the left IJ-approach central venous catheter with the tip in the region of the SVC. EKG leads overlie the thorax. IMPRESSION: 1. Persistent prominent interstitial markings, suggesting pulmonary vascular congestion, interstitial edema, or interstitial pneumonitis, not significantly changed. 2. Subsegmental atelectasis versus infiltrates in bilateral lung bases. 3. Possible small pleural effusions.
--- NOTE | 2018-03-29 11:13 | Infectious Diseases Prog Note ---
Assessment/Plan Assessment/Plan Assessment/Plan Sepsis, resolved 2ry to UTI c/w bacteremia and prob early PNA -u/a wbc tntc, nit neg, luek +3; ucx >100k PsA (R cipro/levo, otherwise S), E. fecalis (S Amp, vanco) -03/06 Bcx 4/ P.mirabiis (R cipro, I Levo; otherwise S), 03/21 MRSE ( contaminant); 03/07 Neg Probable Pneum : -CXR: Subtle patchy opacities in the right upper lung raising question for developing pneumonia. Clinical correlation/follow-up recommended. -influenza sc neg -sp cx MRSA, C. albicans (Colonizer) 03/19/17 - CT C/A/P - Bilateral basilar pneumonia versus atelectasis. Small to moderate left pleural effusion and a small right pleural effusion noted. 03/19/18 UCx - Yeast 03/23/18 CXR - B/L consolidation R>L 03/22/09 SpCx - MRSA, P.a. and NF Low grade fever, SP Leukocytosis - 21 FTT HTN Afib dysphagia HLD Dementia contractures Plan: - Continue flagyl #12/27, IV Vanco d# / and Cefepime # / for PNA (Asp PNA?) -03/13 SP IV Vancomycin #7 -03/06 SP Meropenem x1 -Monitor CBC/CMP, temperatures -aspiration precautions Subjective Allergies: Coded Allergies: No Known Allergies (Unverified , 03/06/18) Subjective afebrile WBC increased Levo decreasing, now at 6 Objective Vital Signs Last 24 Hour Vital Signs Date Time Temp Pulse Resp B/P (MAP) Pulse Ox O2 Delivery O2 Flow Rate FiO2 03/29/18 10:11 83/43 03/29/18 10:00 128 21 83/43 (56) 100 03/29/18 09:00 132 29 98/59 (72) 100 03/29/18 09:00 98/59 03/29/18 08:00 Venturi Mask 03/29/18 08:00 112 03/29/18 08:00 117 34 107/60 (76) 98 03/29/18 08:00 107/60 03/29/18 07:49 107 35 100 Venturi Mask 10.0 45 03/29/18 07:48 Venturi Mask 10.0 45 1/12/19 07:48 100 Venturi Mask 10.0 45 03/29/18 07:40 109 31 100 Venturi Mask 10.0 45 03/29/18 07:30 103 39 112/60 (77) 98 03/29/18 07:00 97.5 104 39 110/60 (77) 100 03/29/18 07:00 110/63 03/29/18 06:00 105 30 112/65 (81) 98 03/29/18 06:00 113/67 03/29/18 05:30 111 30 100/71 (81) 98 03/29/18 05:00 100/73 03/29/18 05:00 102 30 100/73 (82) 98 03/29/18 04:30 100 29 115/63 (80) 97 03/29/18 04:17 109/54 03/29/18 04:00 98.0 111 29 112/54 (73) 97 03/29/18 04:00 Venturi Mask 03/29/18 04:00 112/54 03/29/18 04:00 111 03/29/18 03:30 111 24 109/54 (72) 97 03/29/18 03:00 100 03/29/18 03:00 102/50 03/29/18 03:00 106 23 110/84 (93) 97 03/29/18 02:30 101 22 110/58 (75) 97 03/29/18 02:00 100 22 109/58 (75) 97 03/29/18 02:00 109/58 03/29/18 01:48 100 32 100 Venturi Mask 10.0 45 03/29/18 01:30 115 35 115/57 (76) 97 03/29/18 01:03 93 29 100 Venturi Mask 14.0 55 03/29/18 01:00 104 20 101/56 (71) 96 03/29/18 01:00 100/56 03/29/18 00:30 106 20 100/56 (71) 96 03/29/18 00:00 Venturi Mask 03/29/18 00:00 114/70 03/29/18 00:00 98.2 84 20 114/70 (85) 99 03/28/18 23:36 92/51 03/28/18 23:30 84 20 94/51 (65) 99 03/28/18 23:00 89 20 114/73 (87) 99 03/28/18 23:00 114/70 03/28/18 22:30 86 20 117/69 (85) 99 03/28/18 22:00 110/60 03/28/18 22:00 96 22 110/60 (77) 99 03/28/18 21:30 92 20 108/66 (80) 100 03/28/18 21:20 87 20 100 Venturi Mask 10.0 45 03/28/18 21:10 85 20 100 Venturi Mask 14.0 55 03/28/18 21:00 88 22 121/63 (82) 100 03/28/18 21:00 121/63 03/28/18 20:30 87 19 105/50 (68) 97 03/28/18 20:00 98.4 88 19 107/60 (76) 95 03/28/18 20:00 Venturi Mask 03/28/18 20:00 107/60 03/28/18 19:51 Venturi Mask 14.0 55 03/28/18 19:50 96 Venturi Mask 10.0 45 03/28/18 19:11 79/48 03/28/18 19:00 93 22 79/48 (58) 93 03/28/18 19:00 88 35 79/48 (58) 91 03/28/18 18:30 116 35 110/49 (69) 91 03/28/18 18:00 93 29 95/41 (59) 90 03/28/18 18:00 103/49 03/28/18 17:30 91 29 93/28 (49) 92 03/28/18 17:00 98.2 92 29 95/41 (59) 91 03/28/18 17:00 95/41 03/28/18 16:30 92 28 90/29 (49) 92 03/28/18 16:00 92 03/28/18 16:00 90 18 93/56 (68) 92 03/28/18 16:00 88/52 03/28/18 16:00 Venturi Mask 03/28/18 15:30 88/52 03/28/18 15:00 96/52 03/28/18 15:00 91 21 96/52 (67) 92 1/11/19 14:30 70/22 03/28/18 14:00 73 19 52/26 (35) 92 03/28/18 13:00 98.0 89 20 70/22 (38) 91 03/28/18 12:45 99 20 98 Venturi Mask 10.0 45 03/28/18 12:34 99 22 98 Venturi Mask 14.0 55 03/28/18 12:00 Venturi Mask 03/28/18 12:00 103 03/28/18 12:00 99 42 97/49 (65) 97 Height (Feet): 5 Height (Inches): 3.00 Weight (Pounds): 151 Objective General Appearance: no apparent distress, alert, GCS 15, non-toxic, other - frail, elderly, chronically ill, contracted, non-verbal, Chronically Ill HEENT: normocephalic, atraumatic, bilateral eye normal inspection, bilateral eye PERRL Respiratory: chest non-tender, lungs clear, normal breath sounds, no respiratory distress, no retraction, no accessory muscle use, speaking full sentences Cardiovascular : no edema, tachycardia, systolic murmur, irregularly irregular Gastrointestinal: normal bowel sounds, non tender, soft, non-distended, no guarding, no rebound, other - colostomy bag in place. Musculoskeletal: back normal, gait/station normal, normal range of motion, non- tender Neurologic: alert, other - non-focal. Contracted, non-verbal Skin: no rash, warm/dry, well hydrated, other - Multiple DU Laboratory Tests Test 03/29/18 05:50 White Blood Count 16.8 K/UL (4.8-10.8) H Red Blood Count 2.95 M/UL (4.20-5.40) L Hemoglobin 9.1 G/DL (12.0-16.0) L Hematocrit 28.1 % (37.0-47.0) L Mean Corpuscular Volume 95 FL (80-99) Mean Corpuscular Hemoglobin 31.0 PG (27.0-31.0) Mean Corpuscular Hemoglobin Concent 32.5 G/DL (32.0-36.0) Red Cell Distribution Width 15.8 % (11.6-14.8) H Platelet Count 378 K/UL (150-450) Mean Platelet Volume 4.5 FL (6.5-10.1) L Neutrophils (%) (Auto) 80.9 % (45.0-75.0) H Lymphocytes (%) (Auto) 7.2 % (20.0-45.0) L Monocytes (%) (Auto) 10.4 % (1.0-10.0) H Eosinophils (%) (Auto) 0.5 % (0.0-3.0) Basophils (%) (Auto) 1.0 % (0.0-2.0) Sodium Level 137 MMOL/L (136-145) Potassium Level 4.3 MMOL/L (3.5-5.1) Chloride Level 105 MMOL/L (98-107) Carbon Dioxide Level 29 MMOL/L (21-32) Anion Gap 3 mmol/L (5-15) L Blood Urea Nitrogen 14 mg/dL (7-18) Creatinine 0.5 MG/DL (0.55-1.30) L Estimat Glomerular Filtration Rate mL/min (>60) Glucose Level 153 MG/DL (74-106) H Calcium Level 8.1 MG/DL (8.5-10.1) L Total Bilirubin 0.3 MG/DL (0.2-1.0) Aspartate Amino Transf (AST/SGOT) 23 U/L (15-37) Alanine Aminotransferase (ALT/SGPT) 13 U/L (12-78) Alkaline Phosphatase 130 U/L (46-116) H Pro-B-Type Natriuretic Peptide 3061 pg/mL (0-125) H Total Protein 5.0 G/DL (6.4-8.2) L Albumin 1.3 G/DL (3.4-5.0) L Globulin 3.7 g/dL Albumin/Globulin Ratio 0.4 (1.0-2.7) L Current Medications Medications (Trade) Dose Ordered Sig/Cele Route PRN Reason Start Time Stop Time Status Last Admin Dose Admin Acetaminophen (Tylenol) 650 mg Q4H PRN PEG fever (temp>100.5F) 03/26/18 16:00 04/17/18 05:44 03/28/18 08:05 Acetylcysteine (Mucomyst) 200 mg Q6HRT HHN 03/23/18 19:00 04/22/18 00:59 03/29/18 07:47 Cefepime HCl 1 gm/ Dextrose 55 ml @ 110 mls/hr Q24H IVPB 03/27/18 14:00 04/03/18 13:59 03/28/18 14:18 Chlorhexidine Gluconate (Sahra-Hex 2%) 1 applic DAILY@2000 TOPIC 03/23/18 20:00 04/13/18 19:59 03/28/18 20:11 Gabapentin (Neurontin) 300 mg TID PEG 03/26/18 18:00 04/25/18 17:59 03/29/18 08:25 Ipratropium [place] (Atrovent) 500 mcg Q4H PRN HHN Shortness of Breath 03/28/18 20:30 04/02/18 20:29 03/29/18 07:47 Levalbuterol HCl (Xopenex) 1.25 mg Q4H PRN HHN Shortness of Breath 03/28/18 20:30 04/02/18 20:29 03/29/18 07:48 Metronidazole (Flagyl) 500 mg Q8HR GT 03/27/18 14:00 04/03/18 13:59 03/29/18 06:21 Nitroglycerin (Ntg) 0.4 mg Q5M PRN SL Prn Chest Pain 03/23/18 16:35 04/05/18 17:10 Norepinephrine Bitartrate 4 mg/ Dextrose 250 ml @ 0 mls/hr Q24H IV 03/23/18 18:30 04/22/18 18:29 03/29/18 10:11 Olanzapine (ZyPREXA) 2.5 mg Q6H PRN GT agitation 03/26/18 16:00 04/07/18 15:59 Ondansetron HCl (Zofran) 4 mg Q6H PRN IVP Nausea & Vomiting 03/23/18 16:00 04/05/18 15:59 Pantoprazole (Protonix) 40 mg EVERY 12 HOURS IVP 03/27/18 21:00 04/26/18 20:59 03/29/18 08:26 Polyethylene Glycol (Miralax) 17 gm DAILYPRN PRN GT Constipation 03/26/18 16:00 04/22/18 15:59 Promethazine HCl/ Codeine (Phenergan with Codeine) 5 ml Q4H PRN PEG For Cough 03/26/18 16:00 04/05/18 17:11 Tamsulosin HCl (Flomax) 0.4 mg BEDTIME ORAL 03/23/18 21:00 04/05/18 20:59 03/28/18 21:06 Vancomycin HCl (Vanco rx to dose) 1 ea DAILY PRN MISC Per rx protocol 03/24/18 09:00 04/14/18 10:59 Vancomycin/Sodium Chloride 250 ml @ 166.667 mls/hr Q12H IVPB 03/28/18 04:00 04/02/18 03:59 03/29/18 04:16 Sussy Daniel M.D. Mar 29, 2018 11:13
--- NOTE | 2018-03-29 11:53 | Cardiac Electrophysiology PN ---
Assessment/Plan Status Narrative Technically difficult study due to patient was contracted. Study quality precludes accurate assessment of regional wall motion. Normal left ventricular chamber size, systolic function and wall motion. Left ventricular ejection fraction estimated to be 60-65 %. Mild left ventricular hypertrophy. Small circumferential pericardial effusion. Mild left atrial enlargement. Right cardiac chamber sizes are within normal limits. Aortic valve calcification with decreased cusp excursion c/w aortic stenosis. Mildly thickened mitral valve leaflets with normal excursion. Moderate mitral annulus and aortic root calcification. Normal pulmonic valve structure. Normal tricuspid valve structure. Subcostal views not obtainable due to G tube. Assessment/Plan 1. Paroxysmal atrial fibrillation with rapid ventricular response. Received 0.25 iv digoxin. Off Cardizem drip as BP dropped to 70s. On Levophed 10 Mcg. Echo EF 65%. Start Digoxin 0.125 iv daily 2. Urosepsis. On IV antibiotic per ID. 3. Hypotension, on levophed and IV fluid. 4. Sacral decubitus ulcer. 5. Dementia. 6. Dysphagia. S/P G-tube placement 03/21/17 KEIRY RN Subjective Subjective In ICU on Levophed drip. Still SOB Objective Last 24 Hour Vital Signs Date Time Temp Pulse Resp B/P (MAP) Pulse Ox O2 Delivery O2 Flow Rate FiO2 03/29/18 11:30 109 20 93/56 (68) 98 03/29/18 10:11 83/43 03/29/18 10:00 128 21 83/43 (56) 100 03/29/18 09:00 132 29 98/59 (72) 100 03/29/18 09:00 98/59 03/29/18 08:00 Venturi Mask 03/29/18 08:00 112 03/29/18 08:00 117 34 107/60 (76) 98 03/29/18 08:00 107/60 03/29/18 07:49 107 35 100 Venturi Mask 10.0 45 03/29/18 07:48 Venturi Mask 10.0 45 03/29/18 07:48 100 Venturi Mask 10.0 45 03/29/18 07:40 109 31 100 Venturi Mask 10.0 45 03/29/18 07:30 103 39 112/60 (77) 98 03/29/18 07:00 97.5 104 39 110/60 (77) 100 03/29/18 07:00 110/63 03/29/18 06:00 105 30 112/65 (81) 98 03/29/18 06:00 113/67 03/29/18 05:30 111 30 100/71 (81) 98 03/29/18 05:00 100/73 03/29/18 05:00 102 30 100/73 (82) 98 03/29/18 04:30 100 29 115/63 (80) 97 03/29/18 04:17 109/54 03/29/18 04:00 98.0 111 29 112/54 (73) 97 03/29/18 04:00 Venturi Mask 03/29/18 04:00 112/54 03/29/18 04:00 111 03/29/18 03:30 111 24 109/54 (72) 97 03/29/18 03:00 100 03/29/18 03:00 102/50 03/29/18 03:00 106 23 110/84 (93) 97 03/29/18 02:30 101 22 110/58 (75) 97 03/29/18 02:00 100 22 109/58 (75) 97 03/29/18 02:00 109/58 03/29/18 01:48 100 32 100 Venturi Mask 10.0 45 03/29/18 01:30 115 35 115/57 (76) 97 03/29/18 01:03 93 29 100 Venturi Mask 14.0 55 03/29/18 01:00 104 20 101/56 (71) 96 03/29/18 01:00 100/56 03/29/18 00:30 106 20 100/56 (71) 96 03/29/18 00:00 Venturi Mask 03/29/18 00:00 114/70 03/29/18 00:00 98.2 84 20 114/70 (85) 99 03/28/18 23:36 92/51 03/28/18 23:30 84 20 94/51 (65) 99 03/28/18 23:00 89 20 114/73 (87) 99 03/28/18 23:00 114/70 03/28/18 22:30 86 20 117/69 (85) 99 03/28/18 22:00 110/60 03/28/18 22:00 96 22 110/60 (77) 99 03/28/18 21:30 92 20 108/66 (80) 100 03/28/18 21:20 87 20 100 Venturi Mask 10.0 45 03/28/18 21:10 85 20 100 Venturi Mask 14.0 55 03/28/18 21:00 88 22 121/63 (82) 100 03/28/18 21:00 121/63 03/28/18 20:30 87 19 105/50 (68) 97 03/28/18 20:00 98.4 88 19 107/60 (76) 95 03/28/18 20:00 Venturi Mask 03/28/18 20:00 107/60 03/28/18 19:51 Venturi Mask 14.0 55 03/28/18 19:50 96 Venturi Mask 10.0 45 03/28/18 19:11 79/48 03/28/18 19:00 93 22 79/48 (58) 93 03/28/18 19:00 88 35 79/48 (58) 91 03/28/18 18:30 116 35 110/49 (69) 91 03/28/18 18:00 93 29 95/41 (59) 90 03/28/18 18:00 103/49 03/28/18 17:30 91 29 93/28 (49) 92 03/28/18 17:00 98.2 92 29 95/41 (59) 91 03/28/18 17:00 95/41 03/28/18 16:30 92 28 90/29 (49) 92 03/28/18 16:00 92 03/28/18 16:00 90 18 93/56 (68) 92 03/28/18 16:00 88/52 03/28/18 16:00 Venturi Mask 03/28/18 15:30 88/52 03/28/18 15:00 96/52 03/28/18 15:00 91 21 96/52 (67) 92 03/28/18 14:30 70/22 03/28/18 14:00 73 19 52/26 (35) 92 03/28/18 13:00 98.0 89 20 70/22 (38) 91 03/28/18 12:45 99 20 98 Venturi Mask 10.0 45 03/28/18 12:34 99 22 98 Venturi Mask 14.0 55 03/28/18 12:00 Venturi Mask 03/28/18 12:00 103 03/28/18 12:00 99 42 97/49 (65) 97 Intake and Output 03/28/18 03/29/18 19:00 07:00 Intake Total 3001.250 ml 2245.84 ml Output Total 1255 ml 1420 ml Balance 1746.250 ml 825.84 ml Intake Free Water 90 ml IV Total 2461.250 ml 1615.84 ml Tube Feeding 540 ml 540 ml Output Urine Total 1005 ml 800 ml Stool Total 250 ml 620 ml # Bowel Movements 2 Laboratory Tests Test 03/29/18 05:50 White Blood Count 16.8 K/UL (4.8-10.8) H Red Blood Count 2.95 M/UL (4.20-5.40) L Hemoglobin 9.1 G/DL (12.0-16.0) L Hematocrit 28.1 % (37.0-47.0) L Mean Corpuscular Volume 95 FL (80-99) Mean Corpuscular Hemoglobin 31.0 PG (27.0-31.0) Mean Corpuscular Hemoglobin Concent 32.5 G/DL (32.0-36.0) Red Cell Distribution Width 15.8 % (11.6-14.8) H Platelet Count 378 K/UL (150-450) Mean Platelet Volume 4.5 FL (6.5-10.1) L Neutrophils (%) (Auto) 80.9 % (45.0-75.0) H Lymphocytes (%) (Auto) 7.2 % (20.0-45.0) L Monocytes (%) (Auto) 10.4 % (1.0-10.0) H Eosinophils (%) (Auto) 0.5 % (0.0-3.0) Basophils (%) (Auto) 1.0 % (0.0-2.0) Sodium Level 137 MMOL/L (136-145) Potassium Level 4.3 MMOL/L (3.5-5.1) Chloride Level 105 MMOL/L (98-107) Carbon Dioxide Level 29 MMOL/L (21-32) Anion Gap 3 mmol/L (5-15) L Blood Urea Nitrogen 14 mg/dL (7-18) Creatinine 0.5 MG/DL (0.55-1.30) L Estimat Glomerular Filtration Rate mL/min (>60) Glucose Level 153 MG/DL (74-106) H Calcium Level 8.1 MG/DL (8.5-10.1) L Total Bilirubin 0.3 MG/DL (0.2-1.0) Aspartate Amino Transf (AST/SGOT) 23 U/L (15-37) Alanine Aminotransferase (ALT/SGPT) 13 U/L (12-78) Alkaline Phosphatase 130 U/L (46-116) H Pro-B-Type Natriuretic Peptide 3061 pg/mL (0-125) H Total Protein 5.0 G/DL (6.4-8.2) L Albumin 1.3 G/DL (3.4-5.0) L Globulin 3.7 g/dL Albumin/Globulin Ratio 0.4 (1.0-2.7) L Objective HEAD AND NECK: No JVD. LUNGS: Coarse rhonchi bilaterally. CARDIOVASCULAR: Irregular tachy S1 and S2 with no gallop. ABDOMEN: Status post colostomy. GT in place EXTREMITIES: No pitting edema Fredrick Burk MD Mar 29, 2018 11:53
[2018-03-29 12:32] LABS: APPEARANCE,URINE SLIGHTLY CLOUDY; BILIRUBIN, URINE NEGATIVE (NEGATIVE); COLOR,URINE PALE YELLOW; GLUCOSE, URINE (UA) NEGATIVE (NEGATIVE); KETONES,URINE NEGATIVE (NEGATIVE); LEUKOCYTE ESTERASE ,URINE 3+ (NEGATIVE); NITRITE,URINE NEGATIVE (NEGATIVE); PH,URINE 6 (4.5-8.0); PROTEIN,URINE 1+ (NEGATIVE); UROBILINOGEN,URINE NORMAL MG/DL (0.0-1.0)
[2018-03-29] MEDS: Cefepime 1gm in D5W 55ml IVPB SCH (13:38)
--- NOTE | 2018-03-29 15:31 | Internal Med Progress Note ---
Subjective Date of Service: Mar 29, 2018 Physician Name Shankar Betts Attending Physician Davian Scott MD Current Medications Medications (Trade) Dose Ordered Sig/Cele Route PRN Reason Start Time Stop Time Status Last Admin Dose Admin Acetaminophen (Tylenol) 650 mg Q4H PRN PEG fever (temp>100.5F) 03/26/18 16:00 04/17/18 05:44 03/28/18 08:05 Acetylcysteine (Mucomyst) 200 mg Q6HRT HHN 03/23/18 19:00 04/22/18 00:59 03/29/18 07:47 Amiodarone HCl 900 mg/Dextrose 500 ml @ 0 mls/hr Q24H IV 03/29/18 16:00 03/30/18 15:59 Cefepime HCl 1 gm/ Dextrose 55 ml @ 110 mls/hr Q24H IVPB 03/27/18 14:00 04/03/18 13:59 03/29/18 13:38 Chlorhexidine Gluconate (Sahra-Hex 2%) 1 applic DAILY@2000 TOPIC 03/23/18 20:00 04/13/18 19:59 03/28/18 20:11 Digoxin (Lanoxin) 0.125 mg DAILY IVP 03/30/18 09:00 04/29/18 08:59 Gabapentin (Neurontin) 300 mg TID PEG 03/26/18 18:00 04/25/18 17:59 03/29/18 13:38 Ipratropium [place] (Atrovent) 500 mcg Q4H PRN HHN Shortness of Breath 03/28/18 20:30 04/02/18 20:29 03/29/18 07:47 Levalbuterol HCl (Xopenex) 1.25 mg Q4H PRN HHN Shortness of Breath 03/28/18 20:30 04/02/18 20:29 03/29/18 07:48 Metronidazole (Flagyl) 500 mg Q8HR GT 03/27/18 14:00 04/03/18 13:59 03/29/18 13:38 Nitroglycerin (Ntg) 0.4 mg Q5M PRN SL Prn Chest Pain 03/23/18 16:35 04/05/18 17:10 Norepinephrine Bitartrate 4 mg/ Dextrose 250 ml @ 0 mls/hr Q24H IV 03/23/18 18:30 04/22/18 18:29 03/29/18 10:11 Olanzapine (ZyPREXA) 2.5 mg Q6H PRN GT agitation 03/26/18 16:00 04/07/18 15:59 Ondansetron HCl (Zofran) 4 mg Q6H PRN IVP Nausea & Vomiting 03/23/18 16:00 04/05/18 15:59 Pantoprazole (Protonix) 40 mg EVERY 12 HOURS IVP 03/27/18 21:00 04/26/18 20:59 03/29/18 08:26 Polyethylene Glycol (Miralax) 17 gm DAILYPRN PRN GT Constipation 03/26/18 16:00 04/22/18 15:59 Promethazine HCl/ Codeine (Phenergan with Codeine) 5 ml Q4H PRN PEG For Cough 03/26/18 16:00 04/05/18 17:11 Tamsulosin HCl (Flomax) 0.4 mg BEDTIME ORAL 03/23/18 21:00 04/05/18 20:59 03/28/18 21:06 Vancomycin HCl (Vanco rx to dose) 1 ea DAILY PRN MISC Per rx protocol 03/24/18 09:00 04/14/18 10:59 Vancomycin/Sodium Chloride 250 ml @ 166.667 mls/hr Q12H IVPB 03/28/18 04:00 04/02/18 03:59 03/29/18 04:16 Allergies: Coded Allergies: No Known Allergies (Unverified , 03/06/18) ROS Limited/Unobtainable: Yes Subjective 87 YO F admitted with hematuria and gen weakness. Now pyelonephritis respiratory distress and sepsis. Cover for Int Med-Dr Scott. ICU. On levophed ; Tolerating venturi mask. Afib with RVR Objective Last Vital Signs Date Time Temp Pulse Resp B/P (MAP) Pulse Ox O2 Delivery O2 Flow Rate FiO2 03/29/18 14:00 143 38 101/50 (67) 98 03/29/18 13:12 Venturi Mask 14.0 55 03/29/18 12:30 97.5 Laboratory Tests Test 03/29/18 05:50 03/29/18 12:10 White Blood Count 16.8 K/UL (4.8-10.8) H Red Blood Count 2.95 M/UL (4.20-5.40) L Hemoglobin 9.1 G/DL (12.0-16.0) L Hematocrit 28.1 % (37.0-47.0) L Mean Corpuscular Volume 95 FL (80-99) Mean Corpuscular Hemoglobin 31.0 PG (27.0-31.0) Mean Corpuscular Hemoglobin Concent 32.5 G/DL (32.0-36.0) Red Cell Distribution Width 15.8 % (11.6-14.8) H Platelet Count 378 K/UL (150-450) Mean Platelet Volume 4.5 FL (6.5-10.1) L Neutrophils (%) (Auto) 80.9 % (45.0-75.0) H Lymphocytes (%) (Auto) 7.2 % (20.0-45.0) L Monocytes (%) (Auto) 10.4 % (1.0-10.0) H Eosinophils (%) (Auto) 0.5 % (0.0-3.0) Basophils (%) (Auto) 1.0 % (0.0-2.0) Sodium Level 137 MMOL/L (136-145) Potassium Level 4.3 MMOL/L (3.5-5.1) Chloride Level 105 MMOL/L (98-107) Carbon Dioxide Level 29 MMOL/L (21-32) Anion Gap 3 mmol/L (5-15) L Blood Urea Nitrogen 14 mg/dL (7-18) Creatinine 0.5 MG/DL (0.55-1.30) L Estimat Glomerular Filtration Rate mL/min (>60) Glucose Level 153 MG/DL (74-106) H Calcium Level 8.1 MG/DL (8.5-10.1) L Total Bilirubin 0.3 MG/DL (0.2-1.0) Aspartate Amino Transf (AST/SGOT) 23 U/L (15-37) Alanine Aminotransferase (ALT/SGPT) 13 U/L (12-78) Alkaline Phosphatase 130 U/L (46-116) H Pro-B-Type Natriuretic Peptide 3061 pg/mL (0-125) H Total Protein 5.0 G/DL (6.4-8.2) L Albumin 1.3 G/DL (3.4-5.0) L Globulin 3.7 g/dL Albumin/Globulin Ratio 0.4 (1.0-2.7) L Urine Color Pale yellow Urine Appearance Slightly cloudy Urine pH 6 (4.5-8.0) Urine Specific [place] 1.005 (1.005-1.035) Urine Protein 1+ (NEGATIVE) H Urine Glucose (UA) Negative (NEGATIVE) Urine Ketones Negative (NEGATIVE) Urine Blood 4+ (NEGATIVE) H Urine Nitrite Negative (NEGATIVE) Urine Bilirubin Negative (NEGATIVE) Urine Urobilinogen Normal MG/DL (0.0-1.0) Urine Leukocyte Esterase 3+ (NEGATIVE) H Urine RBC 15-20 /HPF (0 - 2) H Urine WBC 30-40 /HPF (0 - 2) H Urine Squamous Epithelial Cells Occasional /LPF Urine Bacteria Few /HPF (NONE) Urine Yeast Few /HPF (NONE) H Intake and Output 03/28/18 03/29/18 19:00 07:00 Intake Total 3001.250 ml 2245.84 ml Output Total 1255 ml 1420 ml Balance 1746.250 ml 825.84 ml Intake Free Water 90 ml IV Total 2461.250 ml 1615.84 ml Tube Feeding 540 ml 540 ml Output Urine Total 1005 ml 800 ml Stool Total 250 ml 620 ml # Bowel Movements 2 Objective PHYSICAL EXAMINATION: GENERAL: The patient is a well-developed and well-nourished white female, in no apparent distress. HEENT: Eyes, pupils are equal and responsive to light and accommodation. Extraocular movements are intact. NECK: Supple without lymphadenopathy. CHEST: crackles and rales at bases; Decreased breath sounds at bilateral bases. Otherwise, clear to auscultation without wheezes or rales. CARDIOVASCULAR: Tachycardic. Regular rate and rhythm. S1, S2 are normal without murmurs, rubs, or gallops. ABDOMEN: Soft, nontender, and nondistended. Positive bowel sounds. No evidence of hepatosplenomegaly. Currently, no rebound or guarding noted. EXTREMITIES: Negative for clubbing, cyanosis, or edema. RECTAL/GENITAL: Deferred. NEUROLOGIC: Cranial nerves II through XII are grossly intact without focal deficits. Assessment/Plan Problem List: (1) Pyelonephritis Assessment & Plan: Pseudamonas and strep. See ID note-Continue cefepime and vanco (2) Sepsis (3) HTN (hypertension) Assessment & Plan: Currently hypotensive (4) Hypercholesteremia (5) Sacral decubitus ulcer, stage IV Assessment & Plan: See surgery note-dr Ramsay (6) Urinary tract infection Assessment & Plan: pseudamonas; continue cefepime per ID (7) Pneumonia Assessment & Plan: New RLL. Previously MRSA. Continue vanco per ID (8) Atrial fibrillation with RVR Assessment & Plan: Continue digoxin and amiodrone per cardiology (9) Respiratory distress Assessment & Plan: On venturi mask Shankar Betts MD Mar 29, 2018 15:30
[2018-03-29] MEDS ORDERED: Amiodarone 900 MG in D5W 500ml 482 ML IV SCH (16:00)
[2018-03-29] MEDS: Dyna-Hex 2% Top Sol 2oz TOPIC SCH (20:16)
[2018-03-29] MEDS: Tamsulosin 0.4mg cap ORAL SCH (20:53)
--- NOTE | 2018-03-29 23:35 | General Progress Note ---
Assessment/Plan Assessment/Plan Zyprexa prn recommend palliative care/hospice the pt lacks capacity to make decisions. Ativan prn The son is not calling back to our phone calls Subjective Allergies: Coded Allergies: No Known Allergies (Unverified , 03/06/18) Subjective confused no changes the pt is the same dystonic Objective Last 24 Hour Vital Signs Date Time Temp Pulse Resp B/P (MAP) Pulse Ox O2 Delivery O2 Flow Rate FiO2 03/29/18 21:30 83 21 106/58 (74) 97 03/29/18 21:00 99 21 101/55 (70) 98 03/29/18 20:30 101 21 100/60 (73) 98 03/29/18 20:00 Venturi Mask 03/29/18 20:00 98.7 99 21 99/54 (69) 99 03/29/18 20:00 99 03/29/18 19:30 108 29 106/56 (73) 97 03/29/18 19:00 91 20 105/54 (71) 100 03/29/18 18:55 93 24 97 Venturi Mask 14.0 55 03/29/18 18:55 100 Venturi Mask 14.0 55 03/29/18 18:55 93 24 100 Venturi Mask 14.0 55 03/29/18 18:55 Venturi Mask 14.0 55 03/29/18 18:30 94 28 103/57 (72) 100 03/29/18 18:00 95 31 109/65 (80) 99 03/29/18 18:00 109/65 03/29/18 17:30 112 31 120/74 (89) 99 03/29/18 17:10 84/46 03/29/18 17:00 115 29 109/65 (80) 99 03/29/18 16:30 99.8 97 20 103/59 (74) 100 03/29/18 16:00 Venturi Mask 03/29/18 16:00 117 20 105/64 (78) 99 03/29/18 16:00 116 03/29/18 16:00 105/64 03/29/18 15:30 160 43 107/58 (74) 98 03/29/18 15:00 156 43 102/58 (73) 98 03/29/18 15:00 107/58 03/29/18 14:30 157 40 102/68 (79) 98 03/29/18 14:00 101/50 03/29/18 14:00 143 38 101/50 (67) 98 03/29/18 13:30 128 34 101/50 (67) 100 03/29/18 13:12 114 27 98 Venturi Mask 14.0 55 03/29/18 13:12 115 28 100 Venturi Mask 14.0 55 03/29/18 13:00 113 35 110/64 (79) 98 03/29/18 13:00 102/68 03/29/18 12:30 97.5 112 35 96/60 (72) 100 03/29/18 12:00 121 03/29/18 12:00 116/47 03/29/18 12:00 96 18 116/47 (70) 98 03/29/18 12:00 Venturi Mask 03/29/18 11:30 109 20 93/56 (68) 98 03/29/18 11:00 93/56 03/29/18 11:00 116 21 93/56 (68) 99 03/29/18 10:30 110 21 95/61 (72) 98 03/29/18 10:11 83/43 03/29/18 10:00 128 21 83/43 (56) 100 03/29/18 09:30 125 24 83/43 (56) 99 03/29/18 09:00 132 29 98/59 (72) 100 03/29/18 09:00 98/59 03/29/18 08:30 133 39 128/83 (98) 95 03/29/18 08:00 Venturi Mask 03/29/18 08:00 112 03/29/18 08:00 117 34 107/60 (76) 98 03/29/18 08:00 107/60 03/29/18 07:49 107 35 100 Venturi Mask 10.0 45 03/29/18 07:48 Venturi Mask 10.0 45 03/29/18 07:48 100 Venturi Mask 10.0 45 03/29/18 07:40 109 31 100 Venturi Mask 10.0 45 03/29/18 07:30 103 39 112/60 (77) 98 03/29/18 07:00 97.5 104 39 110/60 (77) 100 03/29/18 07:00 110/63 03/29/18 06:00 105 30 112/65 (81) 98 03/29/18 06:00 113/67 03/29/18 05:30 111 30 100/71 (81) 98 03/29/18 05:00 100/73 03/29/18 05:00 102 30 100/73 (82) 98 03/29/18 04:30 100 29 115/63 (80) 97 03/29/18 04:17 109/54 03/29/18 04:00 98.0 111 29 112/54 (73) 97 03/29/18 04:00 Venturi Mask 03/29/18 04:00 112/54 03/29/18 04:00 111 03/29/18 03:30 111 24 109/54 (72) 97 03/29/18 03:00 100 03/29/18 03:00 102/50 03/29/18 03:00 106 23 110/84 (93) 97 03/29/18 02:30 101 22 110/58 (75) 97 03/29/18 02:00 100 22 109/58 (75) 97 03/29/18 02:00 109/58 03/29/18 01:48 100 32 100 Venturi Mask 10.0 45 03/29/18 01:30 115 35 115/57 (76) 97 03/29/18 01:03 93 29 100 Venturi Mask 14.0 55 03/29/18 01:00 104 20 101/56 (71) 96 03/29/18 01:00 100/56 03/29/18 00:30 106 20 100/56 (71) 96 03/29/18 00:00 Venturi Mask 03/29/18 00:00 114/70 03/29/18 00:00 98.2 84 20 114/70 (85) 99 03/28/18 23:36 92/51 Intake and Output 03/28/18 03/29/18 18:59 06:59 Intake Total 2907.083 ml 2287.507 ml Output Total 1505 ml 1740 ml Balance 1402.083 ml 547.507 ml Intake Free Water 90 ml IV Total 2367.083 ml 1657.507 ml Tube Feeding 540 ml 540 ml Output Urine Total 1105 ml 870 ml Stool Total 400 ml 870 ml # Bowel Movements 2 Laboratory Tests 03/29/18 05:50: White Blood Count 16.8H, Red Blood Count 2.95L, Hemoglobin 9.1L, Hematocrit 28.1L, Mean Corpuscular Volume 95, Mean Corpuscular Hemoglobin 31.0, Mean Corpuscular Hemoglobin Concent 32.5, Red Cell Distribution Width 15.8H, Platelet Count 378, Mean Platelet Volume 4.5L, Neutrophils (%) (Auto) 80.9H, Lymphocytes (%) (Auto) 7.2L, Monocytes (%) (Auto) 10.4H, Eosinophils (%) (Auto) 0.5, Basophils (%) (Auto) 1.0, Sodium Level 137, Potassium Level 4.3, Chloride Level 105, Carbon Dioxide Level 29, Anion Gap 3L, Blood Urea Nitrogen 14, Creatinine 0.5L, Estimat Glomerular Filtration Rate , Glucose Level 153H, Calcium Level 8.1L, Total Bilirubin 0.3, Aspartate Amino Transf (AST/SGOT) 23, Alanine Aminotransferase (ALT/SGPT) 13, Alkaline Phosphatase 130H, Pro-B-Type Natriuretic Peptide 3061H, Total Protein 5.0L, Albumin 1.3L, Globulin 3.7, Albumin/Globulin Ratio 0.4L 03/29/18 12:10: Urine Color Pale yellow, Urine Appearance Slightly cloudy, Urine pH 6, Urine Specific [place] 1.005, Urine Protein 1+H, Urine Glucose (UA) Negative, Urine Ketones Negative, Urine Blood 4+H, Urine Nitrite Negative, Urine Bilirubin Negative, Urine Urobilinogen Normal, Urine Leukocyte Esterase 3+H, Urine RBC 15- 20H, Urine WBC 30-40H, Urine Squamous Epithelial Cells Occasional, Urine Bacteria Few, Urine Yeast FewH 03/29/18 15:15: Vancomycin Level Trough 21.9H Height (Feet): 5 Height (Inches): 3.00 Weight (Pounds): 151 General Appearance: confused, agitated Bj Martinez MD Mar 29, 2018 23:35
[2018-03-30] VITALS (53 sets, daily range): BP systolic 84–126; BP diastolic 37–81
[2018-03-30] MEDS: Acetylcysteine 20% Soln 4ml HHN SCH ×4 (01:28→19:10)
[2018-03-30] MEDS: Ipratropium 0.02% Inh Soln 2.5ml UD HHN PRN ×4 (01:28→19:10)
[2018-03-30] MEDS: Levalbuterol Inh UD 1.25mg/0.5ml HHN PRN ×2 (01:29→12:43)
[2018-03-30 05:36] LABS: BASOPHILS % (AUTO) 0.8 % (0.0-2.0); EOSINOPHILS % (AUTO) 1.3 % (0.0-3.0); HEMATOCRIT 26.4 % (37.0-47.0); HEMOGLOBIN 8.7 G/DL (12.0-16.0); LYMPHOCYTES % (AUTO) 11.9 % (20.0-45.0); MEAN CORPUSCULAR VOLUME 94 FL (80-99); MONOCYTES % (AUTO) 10.2 % (1.0-10.0); NEUTROPHILS % (AUTO) 75.8 % (45.0-75.0); PLATELET COUNT 338 K/UL (150-450); RED CELL DISTRIBUTION WIDTH 15.9 % (11.6-14.8); WHITE BLOOD COUNT 11.9 K/UL (4.8-10.8)
[2018-03-30] MEDS: metroNIDAZOLE 500mg tab GT SCH ×3 (06:05→21:48)
[2018-03-30 06:06] LABS: ALANINE AMINOTRANSFERASE 14 U/L (12-78); ALBUMIN 1.3 G/DL (3.4-5.0); ALBUMIN/GLOBULIN RATIO 0.4 (1.0-2.7); ALKALINE PHOSPHATASE 106 U/L (46-116); ANION GAP 1 mmol/L (5-15); ASPARTATE AMINO TRANSFERASE 22 U/L (15-37); BILIRUBIN,TOTAL 0.4 MG/DL (0.2-1.0); BLOOD UREA NITROGEN 8 mg/dL (7-18); CALCIUM 8.3 MG/DL (8.5-10.1); CARBON DIOXIDE 33 MMOL/L (21-32); CHLORIDE 106 MMOL/L (98-107); CREATININE 0.5 MG/DL (0.55-1.30); PHOSPHORUS 2.5 MG/DL (2.5-4.9); POTASSIUM 3.6 MMOL/L (3.5-5.1); SODIUM 140 MMOL/L (136-145)
[2018-03-30] MEDS: Digoxin 0.5mg/2ml Inj IVP SCH (08:55)
[2018-03-30] MEDS: Pantoprazole Inj IVP SCH ×2 (08:55→21:14)
[2018-03-30] MEDS: Vancomycin 500mg/D5W 110ml IVPB SCH ×4 (08:55→20:22)
[2018-03-30] MEDS: Gabapentin 300 MG/6 ML Soln PEG SCH ×3 (10:01→17:46)
--- NOTE | 2018-03-30 12:28 | Cardiac Electrophysiology PN ---
Assessment/Plan Status Narrative Technically difficult study due to patient was contracted. Study quality precludes accurate assessment of regional wall motion. Normal left ventricular chamber size, systolic function and wall motion. Left ventricular ejection fraction estimated to be 60-65 %. Mild left ventricular hypertrophy. Small circumferential pericardial effusion. Mild left atrial enlargement. Right cardiac chamber sizes are within normal limits. Aortic valve calcification with decreased cusp excursion c/w aortic stenosis. Mildly thickened mitral valve leaflets with normal excursion. Moderate mitral annulus and aortic root calcification. Normal pulmonic valve structure. Normal tricuspid valve structure. Subcostal views not obtainable due to G tube. Assessment/Plan 1. Paroxysmal atrial fibrillation with rapid ventricular response. Received 0.25 iv digoxin. Off Cardizem drip as BP dropped to 70s. tapered off Levophed. Echo EF 65%. On Digoxin 0.125 iv daily and Amio drip 2. Urosepsis. On IV antibiotic per ID. 3. Hypotension, off levophed now and on IV fluid. 4. Sacral decubitus ulcer. 5. Dementia. 6. Dysphagia. S/P G-tube placement 03/21/17 KEIRY RN Subjective Subjective In ICU on Amiodrip. Off Levophed this am. Still SOB Objective Last 24 Hour Vital Signs Date Time Temp Pulse Resp B/P (MAP) Pulse Ox O2 Delivery O2 Flow Rate FiO2 03/30/18 12:00 Venturi Mask 15.0 Venturi Mask 03/30/18 11:30 120 39 108/61 (77) 96 03/30/18 11:15 123 37 110/63 (79) 97 03/30/18 11:00 122 37 115/73 (87) 99 03/30/18 11:00 115/73 03/30/18 10:45 122 37 113/60 (77) 100 03/30/18 10:30 120 38 106/66 (79) 100 03/30/18 10:30 106/66 03/30/18 10:15 121 37 123/71 (88) 100 03/30/18 10:01 116/68 03/30/18 10:00 120 32 117/63 (81) 100 03/30/18 09:45 118 35 116/68 (84) 100 03/30/18 09:30 120 42 116/74 (88) 100 03/30/18 09:15 99.0 115 30 115/74 (88) 100 1/13/19 09:00 108 35 119/75 (90) 100 03/30/18 09:00 119/75 03/30/18 08:55 112 03/30/18 08:30 115 29 125/72 (89) 96 03/30/18 08:00 Venturi Mask 15.0 Venturi Mask 03/30/18 08:00 111/98 03/30/18 08:00 115 03/30/18 08:00 122 28 111/81 (91) 99 03/30/18 07:48 119 25 100 Venturi Mask 14.0 55 03/30/18 07:38 Venturi Mask 14.0 55 03/30/18 07:38 122 25 99 Venturi Mask 14.0 55 03/30/18 07:37 97 Venturi Mask 14.0 55 03/30/18 07:30 120 21 121/73 (89) 99 03/30/18 07:00 119 21 118/73 (88) 97 03/30/18 06:30 121 21 110/70 (83) 97 03/30/18 06:18 114/67 03/30/18 06:00 114 21 114/67 (83) 97 03/30/18 05:30 114 21 115/67 (83) 95 03/30/18 05:00 105 21 105/66 (79) 98 03/30/18 04:30 101 21 101/61 (74) 94 03/30/18 04:00 116 03/30/18 04:00 Venturi Mask 03/30/18 04:00 97.9 101 21 114/67 (83) 90 03/30/18 03:30 114 21 126/69 (88) 94 03/30/18 03:00 116 21 116/68 (84) 94 03/30/18 02:30 107 21 111/57 (75) 94 03/30/18 02:06 111 28 100 Venturi Mask 14.0 55 03/30/18 02:00 107 21 110/62 (78) 89 03/30/18 01:30 96 21 112/63 (79) 90 03/30/18 01:29 83 24 93 Venturi Mask 14.0 55 03/30/18 01:00 85 21 113/61 (78) 90 03/30/18 00:30 84 21 92/41 (58) 97 1/13/19 00:00 88 03/30/18 00:00 97.9 81 21 94/52 (66) 97 03/30/18 00:00 Venturi Mask 03/29/18 23:30 81 21 94/52 (66) 97 03/29/18 23:00 85 23 101/55 (70) 97 03/29/18 22:30 85 23 108/57 (74) 97 03/29/18 22:00 83 21 111/58 (75) 99 03/29/18 21:30 83 21 106/58 (74) 97 03/29/18 21:00 99 21 101/55 (70) 98 03/29/18 20:30 101 21 100/60 (73) 98 03/29/18 20:00 Venturi Mask 03/29/18 20:00 98.7 99 21 99/54 (69) 99 03/29/18 20:00 99 03/29/18 19:30 108 29 106/56 (73) 97 03/29/18 19:00 91 20 105/54 (71) 100 03/29/18 18:55 93 24 97 Venturi Mask 14.0 55 03/29/18 18:55 100 Venturi Mask 14.0 55 03/29/18 18:55 93 24 100 Venturi Mask 14.0 55 03/29/18 18:55 Venturi Mask 14.0 55 03/29/18 18:30 94 28 103/57 (72) 100 03/29/18 18:00 95 31 109/65 (80) 99 03/29/18 18:00 109/65 03/29/18 17:30 112 31 120/74 (89) 99 03/29/18 17:10 84/46 03/29/18 17:00 115 29 109/65 (80) 99 03/29/18 16:30 99.8 97 20 103/59 (74) 100 03/29/18 16:00 Venturi Mask 03/29/18 16:00 117 20 105/64 (78) 99 03/29/18 16:00 116 03/29/18 16:00 105/64 03/29/18 15:30 160 43 107/58 (74) 98 03/29/18 15:00 156 43 102/58 (73) 98 03/29/18 15:00 107/58 03/29/18 14:30 157 40 102/68 (79) 98 03/29/18 14:00 101/50 03/29/18 14:00 143 38 101/50 (67) 98 03/29/18 13:30 128 34 101/50 (67) 100 03/29/18 13:12 114 27 98 Venturi Mask 14.0 55 03/29/18 13:12 115 28 100 Venturi Mask 14.0 55 03/29/18 13:00 113 35 110/64 (79) 98 03/29/18 13:00 102/68 03/29/18 12:30 97.5 112 35 96/60 (72) 100 Intake and Output 03/29/18 03/30/18 19:00 07:00 Intake Total 1269.42 ml 1270.59 ml Output Total 2170 ml 1530 ml Balance -900.58 ml -259.41 ml Intake Free Water 90 ml IV Total 729.42 ml 640.59 ml Tube Feeding 540 ml 540 ml Output Urine Total 2020 ml 1430 ml Stool Total 150 ml 100 ml Laboratory Tests Test 03/29/18 15:15 03/30/18 04:00 Vancomycin Level Trough 21.9 ug/mL (5.0-12.0) H White Blood Count 11.9 K/UL (4.8-10.8) H Red Blood Count 2.80 M/UL (4.20-5.40) L Hemoglobin 8.7 G/DL (12.0-16.0) L Hematocrit 26.4 % (37.0-47.0) L Mean Corpuscular Volume 94 FL (80-99) Mean Corpuscular Hemoglobin 31.1 PG (27.0-31.0) H Mean Corpuscular Hemoglobin Concent 33.0 G/DL (32.0-36.0) Red Cell Distribution Width 15.9 % (11.6-14.8) H Platelet Count 338 K/UL (150-450) Mean Platelet Volume 4.3 FL (6.5-10.1) L Neutrophils (%) (Auto) 75.8 % (45.0-75.0) H Lymphocytes (%) (Auto) 11.9 % (20.0-45.0) L Monocytes (%) (Auto) 10.2 % (1.0-10.0) H Eosinophils (%) (Auto) 1.3 % (0.0-3.0) Basophils (%) (Auto) 0.8 % (0.0-2.0) Sodium Level 140 MMOL/L (136-145) Potassium Level 3.6 MMOL/L (3.5-5.1) Chloride Level 106 MMOL/L (98-107) Carbon Dioxide Level 33 MMOL/L (21-32) H Anion Gap 1 mmol/L (5-15) L Blood Urea Nitrogen 8 mg/dL (7-18) Creatinine 0.5 MG/DL (0.55-1.30) L Estimat Glomerular Filtration Rate mL/min (>60) Glucose Level 106 MG/DL (74-106) Calcium Level 8.3 MG/DL (8.5-10.1) L Phosphorus Level 2.5 MG/DL (2.5-4.9) Magnesium Level 1.8 MG/DL (1.8-2.4) Total Bilirubin 0.4 MG/DL (0.2-1.0) Aspartate Amino Transf (AST/SGOT) 22 U/L (15-37) Alanine Aminotransferase (ALT/SGPT) 14 U/L (12-78) Alkaline Phosphatase 106 U/L (46-116) Total Protein 4.9 G/DL (6.4-8.2) L Albumin 1.3 G/DL (3.4-5.0) L Globulin 3.6 g/dL Albumin/Globulin Ratio 0.4 (1.0-2.7) L Digoxin Level 0.5 NG/ML (0.9-2.0) L Microbiology Date/Time Source Procedure Growth Status 03/29/18 14:00 Sputum Induced Gram Stain - Final Resulted 03/29/18 14:00 Sputum Induced Sputum Culture Pending Resulted 03/29/18 14:00 Stool Clostridium difficile Toxin Assay - Final Complete 03/29/18 12:10 Urine,Clean Catch Urine Culture - Preliminary Resulted Objective HEAD AND NECK: No JVD. LUNGS: Coarse rhonchi bilaterally. CARDIOVASCULAR: Irregular tachy S1 and S2 with no gallop. ABDOMEN: Status post colostomy. GT in place EXTREMITIES: No pitting edema Fredrick Burk MD Mar 30, 2018 12:28
[2018-03-30] MEDS: Cefepime 1gm in D5W 55ml IVPB SCH (13:30)
--- NOTE | 2018-03-30 15:57 | Internal Med Progress Note ---
Subjective Date of Service: Mar 30, 2018 Physician Name Shankar Betts Attending Physician Davian Scott MD Current Medications Medications (Trade) Dose Ordered Sig/Cele Route PRN Reason Start Time Stop Time Status Last Admin Dose Admin Acetaminophen (Tylenol) 650 mg Q4H PRN PEG fever (temp>100.5F) 03/26/18 16:00 04/17/18 05:44 03/28/18 08:05 Acetylcysteine (Mucomyst) 200 mg Q6HRT HHN 03/23/18 19:00 04/22/18 00:59 03/30/18 12:42 Amiodarone HCl 900 mg/Dextrose 500 ml @ 16.66 mls/ hr Q24H IV 03/30/18 16:00 03/31/18 15:59 Amiodarone HCl 900 mg/Dextrose 500 ml @ 0 mls/hr Q24H IV 03/29/18 16:00 03/30/18 15:59 03/29/18 15:42 Cefepime HCl 1 gm/ Dextrose 55 ml @ 110 mls/hr Q24H IVPB 03/27/18 14:00 04/03/18 13:59 03/30/18 13:30 Chlorhexidine Gluconate (Sahra-Hex 2%) 1 applic DAILY@2000 TOPIC 03/23/18 20:00 04/13/18 19:59 03/29/18 20:16 Digoxin (Lanoxin) 0.125 mg DAILY IVP 03/30/18 09:00 04/29/18 08:59 03/30/18 08:55 Gabapentin (Neurontin) 300 mg TID PEG 03/26/18 18:00 04/25/18 17:59 03/30/18 13:30 Ipratropium Reading (Atrovent) 500 mcg Q4H PRN HHN Shortness of Breath 03/28/18 20:30 04/02/18 20:29 03/30/18 12:43 Levalbuterol HCl (Xopenex) 1.25 mg Q4H PRN HHN Shortness of Breath 03/28/18 20:30 04/02/18 20:29 03/30/18 12:43 Metronidazole (Flagyl) 500 mg Q8HR GT 03/27/18 14:00 04/03/18 13:59 03/30/18 13:30 Nitroglycerin (Ntg) 0.4 mg Q5M PRN SL Prn Chest Pain 03/23/18 16:35 04/05/18 17:10 Norepinephrine Bitartrate 4 mg/ Dextrose 250 ml @ 0 mls/hr Q24H IV 03/23/18 18:30 04/22/18 18:29 03/30/18 10:01 Olanzapine (ZyPREXA) 2.5 mg Q6H PRN GT agitation 03/26/18 16:00 04/07/18 15:59 Ondansetron HCl (Zofran) 4 mg Q6H PRN IVP Nausea & Vomiting 03/23/18 16:00 04/05/18 15:59 Pantoprazole (Protonix) 40 mg EVERY 12 HOURS IVP 03/27/18 21:00 04/26/18 20:59 03/30/18 08:55 Polyethylene Glycol (Miralax) 17 gm DAILYPRN PRN GT Constipation 03/26/18 16:00 04/22/18 15:59 Promethazine HCl/ Codeine (Phenergan with Codeine) 5 ml Q4H PRN PEG For Cough 03/26/18 16:00 04/05/18 17:11 Tamsulosin HCl (Flomax) 0.4 mg BEDTIME ORAL 03/23/18 21:00 04/05/18 20:59 03/29/18 20:53 Vancomycin HCl (Vanco rx to dose) 1 ea DAILY PRN MISC Per rx protocol 03/24/18 09:00 04/14/18 10:59 Vancomycin HCl 500 mg/Dextrose 110 ml @ 110 mls/hr Q12HR@0800,2000 IVPB 03/30/18 08:00 04/04/18 07:59 03/30/18 08:55 Allergies: Coded Allergies: No Known Allergies (Unverified , 03/06/18) ROS Limited/Unobtainable: Yes Subjective 87 YO F admitted with hematuria and gen weakness. Now pyelonephritis respiratory distress and sepsis. Cover for Int Med-Dr Scott. ICU. On levophed ; Tolerating venturi mask. Afib with RVR Objective Last Vital Signs Date Time Temp Pulse Resp B/P (MAP) Pulse Ox O2 Delivery O2 Flow Rate FiO2 03/30/18 15:30 112 17 101/59 (73) 100 1/13/19 12:53 Venturi Mask 14.0 55 03/30/18 12:00 98.6 Laboratory Tests Test 03/30/18 04:00 White Blood Count 11.9 K/UL (4.8-10.8) H Red Blood Count 2.80 M/UL (4.20-5.40) L Hemoglobin 8.7 G/DL (12.0-16.0) L Hematocrit 26.4 % (37.0-47.0) L Mean Corpuscular Volume 94 FL (80-99) Mean Corpuscular Hemoglobin 31.1 PG (27.0-31.0) H Mean Corpuscular Hemoglobin Concent 33.0 G/DL (32.0-36.0) Red Cell Distribution Width 15.9 % (11.6-14.8) H Platelet Count 338 K/UL (150-450) Mean Platelet Volume 4.3 FL (6.5-10.1) L Neutrophils (%) (Auto) 75.8 % (45.0-75.0) H Lymphocytes (%) (Auto) 11.9 % (20.0-45.0) L Monocytes (%) (Auto) 10.2 % (1.0-10.0) H Eosinophils (%) (Auto) 1.3 % (0.0-3.0) Basophils (%) (Auto) 0.8 % (0.0-2.0) Sodium Level 140 MMOL/L (136-145) Potassium Level 3.6 MMOL/L (3.5-5.1) Chloride Level 106 MMOL/L (98-107) Carbon Dioxide Level 33 MMOL/L (21-32) H Anion Gap 1 mmol/L (5-15) L Blood Urea Nitrogen 8 mg/dL (7-18) Creatinine 0.5 MG/DL (0.55-1.30) L Estimat Glomerular Filtration Rate mL/min (>60) Glucose Level 106 MG/DL (74-106) Calcium Level 8.3 MG/DL (8.5-10.1) L Phosphorus Level 2.5 MG/DL (2.5-4.9) Magnesium Level 1.8 MG/DL (1.8-2.4) Total Bilirubin 0.4 MG/DL (0.2-1.0) Aspartate Amino Transf (AST/SGOT) 22 U/L (15-37) Alanine Aminotransferase (ALT/SGPT) 14 U/L (12-78) Alkaline Phosphatase 106 U/L (46-116) Total Protein 4.9 G/DL (6.4-8.2) L Albumin 1.3 G/DL (3.4-5.0) L Globulin 3.6 g/dL Albumin/Globulin Ratio 0.4 (1.0-2.7) L Digoxin Level 0.5 NG/ML (0.9-2.0) L Microbiology Date/Time Source Procedure Growth Status 03/29/18 14:00 Sputum Induced Gram Stain - Final Resulted 03/29/18 14:00 Sputum Induced Sputum Culture Pending Resulted 03/29/18 14:00 Stool Clostridium difficile Toxin Assay - Final Complete 03/29/18 12:10 Urine,Clean Catch Urine Culture - Preliminary Resulted Intake and Output 03/29/18 03/30/18 19:00 07:00 Intake Total 1269.42 ml 1270.59 ml Output Total 2170 ml 1530 ml Balance -900.58 ml -259.41 ml Intake Free Water 90 ml IV Total 729.42 ml 640.59 ml Tube Feeding 540 ml 540 ml Output Urine Total 2020 ml 1430 ml Stool Total 150 ml 100 ml Objective PHYSICAL EXAMINATION: GENERAL: The patient is a well-developed and well-nourished white female, in no apparent distress. HEENT: Eyes, pupils are equal and responsive to light and accommodation. Extraocular movements are intact. NECK: Supple without lymphadenopathy. CHEST: crackles and rales at bases; Decreased breath sounds at bilateral bases. Otherwise, clear to auscultation without wheezes or rales. CARDIOVASCULAR: Tachycardic. Regular rate and rhythm. S1, S2 are normal without murmurs, rubs, or gallops. ABDOMEN: Soft, nontender, and nondistended. Positive bowel sounds. No evidence of hepatosplenomegaly. Currently, no rebound or guarding noted. EXTREMITIES: Negative for clubbing, cyanosis, or edema. RECTAL/GENITAL: Deferred. NEUROLOGIC: Cranial nerves II through XII are grossly intact without focal deficits. Assessment/Plan Problem List: (1) Pyelonephritis Assessment & Plan: Pseudamonas and strep. See ID note-Continue cefepime and vanco (2) Sepsis (3) HTN (hypertension) Assessment & Plan: Currently hypotensive (4) Hypercholesteremia (5) Sacral decubitus ulcer, stage IV Assessment & Plan: See surgery note-dr Ramsay (6) Urinary tract infection Assessment & Plan: pseudamonas; continue cefepime per ID (7) Pneumonia Assessment & Plan: New RLL. Previously MRSA. Continue vanco per ID (8) Atrial fibrillation with RVR Assessment & Plan: Continue digoxin and amiodrone per cardiology (9) Respiratory distress Assessment & Plan: On venturi mask Status: not improved Shankar Betts MD Mar 30, 2018 15:57
--- NOTE | 2018-03-30 15:58 | Pulmonolgy Critical Care Note ---
Critical Care - Asmt/Plan Problems: (1) Respiratory distress (2) Pneumonia (3) Sacral decubitus ulcer, stage IV (4) Protein-calorie malnutrition, severe (5) At high risk for aspiration Respiratory: monitor respiratory rate, adjust FIO2, CXR Cardiac: continue to monitor HR/BP Renal: F/U I&O, keep IV fluid Infectious Disease: check cultures Gastrointestinal: continue feedings/current rate Endocrine: monitor blood sugar Hematologic: monitor H/H, transfuse if hgb<8.5 Neurologic: PRN Ativan, keep patient comfortable Affect: PRN ativan Prophylaxis: Protonix, Heparin Time Spent (Minutes): 40 Notes Reviewed: adoption counselor, 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 with: nurses, consultants, business case analystentry manager - Objective Last 24 Hour Vital Signs Date Time Temp Pulse Resp B/P (MAP) Pulse Ox O2 Delivery O2 Flow Rate FiO2 03/30/18 15:30 112 17 101/59 (73) 100 03/30/18 15:00 99 18 85/48 (60) 98 03/30/18 14:30 123 19 95/58 (70) 99 03/30/18 14:30 102 25 98/56 (70) 98 03/30/18 14:00 123 25 97/58 (71) 99 03/30/18 13:30 121 34 101/77 (85) 95 03/30/18 13:00 118 23 99/60 (73) 98 03/30/18 12:53 110 25 100 Venturi Mask 14.0 55 03/30/18 12:43 106 25 99 Venturi Mask 14.0 55 03/30/18 12:30 122 24 100/64 (76) 100 03/30/18 12:00 98.6 117 23 111/63 (79) 99 03/30/18 12:00 Venturi Mask 15.0 Venturi Mask 03/30/18 12:00 119 03/30/18 11:45 118 26 110/54 (72) 98 03/30/18 11:30 120 39 108/61 (77) 96 03/30/18 11:15 123 37 110/63 (79) 97 03/30/18 11:00 122 37 115/73 (87) 99 03/30/18 11:00 115/73 03/30/18 10:45 122 37 113/60 (77) 100 03/30/18 10:30 120 38 106/66 (79) 100 03/30/18 10:30 106/66 03/30/18 10:15 121 37 123/71 (88) 100 03/30/18 10:01 116/68 03/30/18 10:00 120 32 117/63 (81) 100 03/30/18 09:45 118 35 116/68 (84) 100 03/30/18 09:30 120 42 116/74 (88) 100 03/30/18 09:15 99.0 115 30 115/74 (88) 100 03/30/18 09:00 108 35 119/75 (90) 100 03/30/18 09:00 119/75 03/30/18 08:55 112 03/30/18 08:30 115 29 125/72 (89) 96 03/30/18 08:00 Venturi Mask 15.0 Venturi Mask 03/30/18 08:00 111/98 03/30/18 08:00 115 03/30/18 08:00 122 28 111/81 (91) 99 03/30/18 07:48 119 25 100 Venturi Mask 14.0 55 03/30/18 07:38 Venturi Mask 14.0 55 03/30/18 07:38 122 25 99 Venturi Mask 14.0 55 03/30/18 07:37 97 Venturi Mask 14.0 55 03/30/18 07:30 120 21 121/73 (89) 99 03/30/18 07:00 119 21 118/73 (88) 97 03/30/18 06:30 121 21 110/70 (83) 97 03/30/18 06:18 114/67 03/30/18 06:00 114 21 114/67 (83) 97 03/30/18 05:30 114 21 115/67 (83) 95 03/30/18 05:00 105 21 105/66 (79) 98 03/30/18 04:30 101 21 101/61 (74) 94 03/30/18 04:00 116 03/30/18 04:00 Venturi Mask 03/30/18 04:00 97.9 101 21 114/67 (83) 90 03/30/18 03:30 114 21 126/69 (88) 94 03/30/18 03:00 116 21 116/68 (84) 94 03/30/18 02:30 107 21 111/57 (75) 94 03/30/18 02:06 111 28 100 Venturi Mask 14.0 55 03/30/18 02:00 107 21 110/62 (78) 89 03/30/18 01:30 96 21 112/63 (79) 90 03/30/18 01:29 83 24 93 Venturi Mask 14.0 55 03/30/18 01:00 85 21 113/61 (78) 90 03/30/18 00:30 84 21 92/41 (58) 97 03/30/18 00:00 88 03/30/18 00:00 97.9 81 21 94/52 (66) 97 03/30/18 00:00 Venturi Mask 03/29/18 23:30 81 21 94/52 (66) 97 03/29/18 23:00 85 23 101/55 (70) 97 03/29/18 22:30 85 23 108/57 (74) 97 03/29/18 22:00 83 21 111/58 (75) 99 03/29/18 21:30 83 21 106/58 (74) 97 03/29/18 21:00 99 21 101/55 (70) 98 03/29/18 20:30 101 21 100/60 (73) 98 03/29/18 20:00 Venturi Mask 03/29/18 20:00 98.7 99 21 99/54 (69) 99 03/29/18 20:00 99 03/29/18 19:30 108 29 106/56 (73) 97 03/29/18 19:00 91 20 105/54 (71) 100 03/29/18 18:55 93 24 97 Venturi Mask 14.0 55 03/29/18 18:55 100 Venturi Mask 14.0 55 03/29/18 18:55 93 24 100 Venturi Mask 14.0 55 03/29/18 18:55 Venturi Mask 14.0 55 03/29/18 18:30 94 28 103/57 (72) 100 03/29/18 18:00 95 31 109/65 (80) 99 03/29/18 18:00 109/65 03/29/18 17:30 112 31 120/74 (89) 99 03/29/18 17:10 84/46 03/29/18 17:00 115 29 109/65 (80) 99 03/29/18 16:30 99.8 97 20 103/59 (74) 100 03/29/18 16:00 Venturi Mask 03/29/18 16:00 117 20 105/64 (78) 99 03/29/18 16:00 116 03/29/18 16:00 105/64 Status: awake Condition: critical HEENT: atraumatic Lungs: clear Heart: HR/BP stable, HR/BP unstable Abdomen: soft, non-tender, active bowel sounds Extremities: no C/C/E, edema Micro: Microbiology Date/Time Source Procedure Growth Status 03/29/18 14:00 Sputum Induced Gram Stain - Final Resulted 03/29/18 14:00 Sputum Induced Sputum Culture Pending Resulted 03/29/18 14:00 Stool Clostridium difficile Toxin Assay - Final Complete 03/29/18 12:10 Urine,Clean Catch Urine Culture - Preliminary Resulted Accucheck: 111 Critical Care - Subjective ROS Limited/Unobtainable: Yes Condition: critical EKG Rhythm: Sinus Rhythm FI02: 55 Sputum Amount: Large Tube Feeding Amount: 45 I&O: Intake and Output 03/29/18 03/30/18 19:00 07:00 Intake Total 1269.42 ml 1270.59 ml Output Total 2170 ml 1530 ml Balance -900.58 ml -259.41 ml Intake Free Water 90 ml IV Total 729.42 ml 640.59 ml Tube Feeding 540 ml 540 ml Output Urine Total 2020 ml 1430 ml Stool Total 150 ml 100 ml Rishi Gutierrez MD Mar 30, 2018 15:58
[2018-03-30] MEDS ORDERED: Amiodarone 900 MG in D5W 500ml 482 ML IV SCH (16:00)
[2018-03-30] MEDS: Dyna-Hex 2% Top Sol 2oz TOPIC SCH (20:22)
[2018-03-30] MEDS: Tamsulosin 0.4mg cap ORAL SCH (21:15)
--- NOTE | 2018-03-30 21:42 | General Progress Note ---
Assessment/Plan Assessment/Plan Zyprexa prn recommend palliative care/hospice the pt lacks capacity to make decisions. Ativan prn The son is not calling back to our phone calls Subjective Neurologic/Psychiatric: Reports: anxiety Allergies: Coded Allergies: No Known Allergies (Unverified , 03/06/18) Subjective confused episodes of agitation Objective Last 24 Hour Vital Signs Date Time Temp Pulse Resp B/P (MAP) Pulse Ox O2 Delivery O2 Flow Rate FiO2 03/30/18 19:29 108 31 100 Venturi Mask 14.0 55 03/30/18 19:10 118 26 100 Venturi Mask 14.0 55 03/30/18 19:10 Venturi Mask 14.0 55 03/30/18 19:10 100 Venturi Mask 14.0 55 03/30/18 19:00 116 18 103/65 (78) 99 03/30/18 18:30 98.0 101 18 98/57 (71) 96 03/30/18 18:00 108 18 104/59 (74) 99 03/30/18 17:30 102 18 86/56 (66) 100 03/30/18 17:00 105 19 106/64 (78) 100 03/30/18 16:30 103 20 109/59 (76) 100 03/30/18 16:00 98.4 113 18 101/63 (76) 100 03/30/18 16:00 Venturi Mask 15.0 Venturi Mask 03/30/18 16:00 104 03/30/18 15:30 112 17 101/59 (73) 100 03/30/18 15:00 99 18 85/48 (60) 98 03/30/18 14:30 123 19 95/58 (70) 99 03/30/18 14:30 102 25 98/56 (70) 98 03/30/18 14:00 123 25 97/58 (71) 99 03/30/18 13:30 121 34 101/77 (85) 95 03/30/18 13:00 118 23 99/60 (73) 98 03/30/18 12:53 110 25 100 Venturi Mask 14.0 55 03/30/18 12:43 106 25 99 Venturi Mask 14.0 55 03/30/18 12:30 122 24 100/64 (76) 100 03/30/18 12:00 98.6 117 23 111/63 (79) 99 03/30/18 12:00 Venturi Mask 15.0 Venturi Mask 03/30/18 12:00 119 03/30/18 11:45 118 26 110/54 (72) 98 03/30/18 11:30 120 39 108/61 (77) 96 03/30/18 11:15 123 37 110/63 (79) 97 03/30/18 11:00 122 37 115/73 (87) 99 03/30/18 11:00 115/73 03/30/18 10:45 122 37 113/60 (77) 100 03/30/18 10:30 120 38 106/66 (79) 100 03/30/18 10:30 106/66 03/30/18 10:15 121 37 123/71 (88) 100 03/30/18 10:01 116/68 03/30/18 10:00 120 32 117/63 (81) 100 03/30/18 09:45 118 35 116/68 (84) 100 03/30/18 09:30 120 42 116/74 (88) 100 03/30/18 09:15 99.0 115 30 115/74 (88) 100 03/30/18 09:00 108 35 119/75 (90) 100 03/30/18 09:00 119/75 03/30/18 08:55 112 03/30/18 08:30 115 29 125/72 (89) 96 03/30/18 08:00 Venturi Mask 15.0 Venturi Mask 03/30/18 08:00 111/98 03/30/18 08:00 115 03/30/18 08:00 122 28 111/81 (91) 99 03/30/18 07:48 119 25 100 Venturi Mask 14.0 55 03/30/18 07:38 Venturi Mask 14.0 55 03/30/18 07:38 122 25 99 Venturi Mask 14.0 55 03/30/18 07:37 97 Venturi Mask 14.0 55 03/30/18 07:30 120 21 121/73 (89) 99 03/30/18 07:00 119 21 118/73 (88) 97 03/30/18 06:30 121 21 110/70 (83) 97 03/30/18 06:18 114/67 03/30/18 06:00 114 21 114/67 (83) 97 03/30/18 05:30 114 21 115/67 (83) 95 03/30/18 05:00 105 21 105/66 (79) 98 03/30/18 04:30 101 21 101/61 (74) 94 03/30/18 04:00 116 03/30/18 04:00 Venturi Mask 03/30/18 04:00 97.9 101 21 114/67 (83) 90 03/30/18 03:30 114 21 126/69 (88) 94 03/30/18 03:00 116 21 116/68 (84) 94 03/30/18 02:30 107 21 111/57 (75) 94 03/30/18 02:06 111 28 100 Venturi Mask 14.0 55 03/30/18 02:00 107 21 110/62 (78) 89 03/30/18 01:30 96 21 112/63 (79) 90 03/30/18 01:29 83 24 93 Venturi Mask 14.0 55 03/30/18 01:00 85 21 113/61 (78) 90 03/30/18 00:30 84 21 92/41 (58) 97 03/30/18 00:00 88 03/30/18 00:00 97.9 81 21 94/52 (66) 97 03/30/18 00:00 Venturi Mask 03/29/18 23:30 81 21 94/52 (66) 97 03/29/18 23:00 85 23 101/55 (70) 97 03/29/18 22:30 85 23 108/57 (74) 97 03/29/18 22:00 83 21 111/58 (75) 99 Intake and Output 03/29/18 03/30/18 18:59 06:59 Intake Total 1301.09 ml 1308.76 ml Output Total 2050 ml 1540 ml Balance -748.91 ml -231.24 ml Intake Free Water 90 ml IV Total 761.09 ml 678.76 ml Tube Feeding 540 ml 540 ml Output Urine Total 1900 ml 1440 ml Stool Total 150 ml 100 ml Laboratory Tests 03/30/18 04:00: White Blood Count 11.9H, Red Blood Count 2.80L, Hemoglobin 8.7L, Hematocrit 26.4L, Mean Corpuscular Volume 94, Mean Corpuscular Hemoglobin 31.1H, Mean Corpuscular Hemoglobin Concent 33.0, Red Cell Distribution Width 15.9H, Platelet Count 338, Mean Platelet Volume 4.3L, Neutrophils (%) (Auto) 75.8H, Lymphocytes (%) (Auto) 11.9L, Monocytes (%) (Auto) 10.2H, Eosinophils (%) (Auto ) 1.3, Basophils (%) (Auto) 0.8, Sodium Level 140, Potassium Level 3.6, Chloride Level 106, Carbon Dioxide Level 33H, Anion Gap 1L, Blood Urea Nitrogen 8, Creatinine 0.5L, Estimat Glomerular Filtration Rate , Glucose Level 106, Calcium Level 8.3L, Phosphorus Level 2.5, Magnesium Level 1.8, Total Bilirubin 0.4, Aspartate Amino Transf (AST/SGOT) 22, Alanine Aminotransferase (ALT/SGPT) 14, Alkaline Phosphatase 106, Total Protein 4.9L, Albumin 1.3L, Globulin 3.6, Albumin/Globulin Ratio 0.4L, Digoxin Level 0.5L Height (Feet): 5 Height (Inches): 3.00 Weight (Pounds): 164 General Appearance: confused, agitated Bj Martinez MD Mar 30, 2018 21:41
[2018-03-31] VITALS (48 sets, daily range): BP systolic 79–116; BP diastolic 37–98
[2018-03-31] MEDS: Ipratropium 0.02% Inh Soln 2.5ml UD HHN PRN ×4 (01:02→19:42)
[2018-03-31] MEDS: Acetylcysteine 20% Soln 4ml HHN SCH ×4 (01:02→19:42)
[2018-03-31] MEDS: metroNIDAZOLE 500mg tab GT SCH ×3 (06:44→22:46)
[2018-03-31 07:17] LABS: BASOPHILS % (AUTO) 1.3 % (0.0-2.0); EOSINOPHILS % (AUTO) 1.1 % (0.0-3.0); HEMATOCRIT 27.4 % (37.0-47.0); HEMOGLOBIN 8.9 G/DL (12.0-16.0); LYMPHOCYTES % (AUTO) 11.5 % (20.0-45.0); MEAN CORPUSCULAR VOLUME 96 FL (80-99); MONOCYTES % (AUTO) 11.5 % (1.0-10.0); NEUTROPHILS % (AUTO) 74.7 % (45.0-75.0); PLATELET COUNT 286 K/UL (150-450); RED BLOOD COUNT 2.87 M/UL (4.20-5.40); WHITE BLOOD COUNT 8.8 K/UL (4.8-10.8)
[2018-03-31 07:34] LABS: ALANINE AMINOTRANSFERASE 12 U/L (12-78); ALBUMIN 1.2 G/DL (3.4-5.0); ALBUMIN/GLOBULIN RATIO 0.4 (1.0-2.7); ALKALINE PHOSPHATASE 100 U/L (46-116); ANION GAP 2 mmol/L (5-15); ASPARTATE AMINO TRANSFERASE 22 U/L (15-37); BILIRUBIN,TOTAL 0.4 MG/DL (0.2-1.0); BLOOD UREA NITROGEN 6 mg/dL (7-18); CALCIUM 7.8 MG/DL (8.5-10.1); CARBON DIOXIDE 31 MMOL/L (21-32); CHLORIDE 105 MMOL/L (98-107); CREATININE 0.4 MG/DL (0.55-1.30); POTASSIUM 3.9 MMOL/L (3.5-5.1); SODIUM 137 MMOL/L (136-145)
[2018-03-31] MEDS: Pantoprazole Inj IVP SCH ×2 (08:47→20:39)
[2018-03-31] MEDS: Vancomycin 500mg/D5W 110ml IVPB SCH ×4 (08:48→20:21)
[2018-03-31] MEDS: Gabapentin 300 MG/6 ML Soln PEG SCH (08:48)
[2018-03-31] MEDS: Digoxin 0.5mg/2ml Inj IVP SCH (08:48)
--- NOTE | 2018-03-31 10:06 | Infectious Diseases Prog Note ---
Assessment/Plan Assessment/Plan Assessment/Plan Sepsis, resolved 2ry to UTI c/w bacteremia and prob early PNA -u/a wbc tntc, nit neg, luek +3; ucx >100k PsA (R cipro/levo, otherwise S), E. fecalis (S Amp, vanco); repeat u/a 03/29 wbc 30-40, nit eng, leuk +3; ucx yeast so far -03/06 Bcx 4/ P.mirabiis (R cipro, I Levo; otherwise S), 03/21 MRSE ( contaminant); 03/07 Neg; 03/29 Bcx NTD Probable Pneum : -03/29 CXR: . Persistent prominent interstitial markings, suggesting pulmonary vascular congestion, interstitial edema, or interstitial pneumonitis, not significantly changed. Subsegmental atelectasis versus infiltrates in bilateral lung bases. Possible small pleural effusions. -CXR: Subtle patchy opacities in the right upper lung raising question for developing pneumonia. Clinical correlation/follow-up recommended. -influenza sc neg -sp cx MRSA, C. albicans (Colonizer); 03/29 sp cx MRSA, GNB (prob colonizers) 03/19/17 - CT C/A/P - Bilateral basilar pneumonia versus atelectasis. Small to moderate left pleural effusion and a small right pleural effusion noted. 03/19/18 UCx - Yeast 03/23/18 CXR - B/L consolidation R>L 03/22/09 SpCx - MRSA, P.a. and NF Low grade fever, SP Leukocytosis - 21 FTT HTN Afib dysphagia HLD Dementia contractures Plan: - Continue flagyl #02/26, IV Vanco d# 15/15 and d/c Cefepime # / for PNA ( Asp PNA?) -03/13 SP IV Vancomycin #7 -03/06 SP Meropenem x1 -Monitor CBC/CMP, temperatures -aspiration precautions Subjective Allergies: Coded Allergies: No Known Allergies (Unverified , 03/06/18) Subjective afebrile leukocytosis resolved off pressors now repeat Bcx NTD Objective Vital Signs Last 24 Hour Vital Signs Date Time Temp Pulse Resp B/P (MAP) Pulse Ox O2 Delivery O2 Flow Rate FiO2 03/31/18 09:30 118 36 109/64 (79) 100 03/31/18 09:00 117 36 112/69 (83) 99 03/31/18 08:48 114 03/31/18 08:30 115 35 111/69 (83) 99 03/31/18 08:00 Venturi Mask 15.0 Venturi Mask 03/31/18 08:00 115 39 112/73 (86) 100 03/31/18 07:30 117 26 100 Venturi Mask 14.0 55 03/31/18 07:30 113 30 108/72 (84) 100 03/31/18 07:15 Venturi Mask 15.0 55 03/31/18 07:15 115 24 100 Venturi Mask 14.0 55 03/31/18 07:15 98 Venturi Mask 14.0 55 03/31/18 07:00 97.6 116 39 106/56 (73) 100 03/31/18 06:30 112 20 102/66 (78) 100 03/31/18 06:00 112 20 110/66 (81) 100 03/31/18 05:30 101 20 100/71 (81) 100 03/31/18 05:00 102 19 99/71 (80) 100 03/31/18 04:30 115 19 102/62 (75) 100 03/31/18 04:00 92 03/31/18 04:00 98.0 105 19 90/61 (71) 100 03/31/18 04:00 Venturi Mask 15.0 Venturi Mask 03/31/18 03:30 96 19 105/60 (75) 100 03/31/18 03:00 95 19 100/56 (71) 100 03/31/18 02:30 111 33 97/58 (71) 100 03/31/18 02:00 110 34 103/58 (73) 100 03/31/18 01:30 106 20 90/60 (70) 100 03/31/18 01:17 110 37 100 Venturi Mask 14.0 55 03/31/18 01:02 112 33 100 Venturi Mask 14.0 55 03/31/18 01:00 112 20 86/60 (69) 100 03/31/18 00:30 106 20 82/49 (60) 100 03/31/18 00:00 98.4 109 17 84/53 (63) 100 03/31/18 00:00 Venturi Mask 15.0 Venturi Mask 03/31/18 00:00 109 03/31/18 00:00 104 03/30/18 23:30 111 17 91/37 (55) 100 03/30/18 23:00 111 17 94/53 (67) 100 03/30/18 22:30 108 24 84/40 (55) 98 03/30/18 22:00 105 24 96/56 (69) 98 03/30/18 21:30 107 20 87/54 (65) 100 03/30/18 21:00 112 37 96/62 (73) 100 03/30/18 20:30 113 39 107/71 (83) 100 03/30/18 20:00 113 29 97/64 (75) 99 03/30/18 20:00 105 03/30/18 20:00 Venturi Mask 15.0 Venturi Mask 03/30/18 19:29 108 31 100 Venturi Mask 14.0 55 03/30/18 19:10 118 26 100 Venturi Mask 14.0 55 03/30/18 19:10 Venturi Mask 14.0 55 03/30/18 19:10 100 Venturi Mask 14.0 55 03/30/18 19:00 116 18 103/65 (78) 99 03/30/18 18:30 98.0 101 18 98/57 (71) 96 03/30/18 18:00 108 18 104/59 (74) 99 03/30/18 17:30 102 18 86/56 (66) 100 03/30/18 17:00 105 19 106/64 (78) 100 03/30/18 16:30 103 20 109/59 (76) 100 03/30/18 16:00 98.4 113 18 101/63 (76) 100 03/30/18 16:00 Venturi Mask 15.0 Venturi Mask 03/30/18 16:00 104 03/30/18 15:30 112 17 101/59 (73) 100 03/30/18 15:00 99 18 85/48 (60) 98 03/30/18 14:30 123 19 95/58 (70) 99 03/30/18 14:30 102 25 98/56 (70) 98 03/30/18 14:00 123 25 97/58 (71) 99 03/30/18 13:30 121 34 101/77 (85) 95 03/30/18 13:00 118 23 99/60 (73) 98 03/30/18 12:53 110 25 100 Venturi Mask 14.0 55 03/30/18 12:43 106 25 99 Venturi Mask 14.0 55 03/30/18 12:30 122 24 100/64 (76) 100 03/30/18 12:00 98.6 117 23 111/63 (79) 99 03/30/18 12:00 Venturi Mask 15.0 Venturi Mask 03/30/18 12:00 119 03/30/18 11:45 118 26 110/54 (72) 98 03/30/18 11:30 120 39 108/61 (77) 96 03/30/18 11:15 123 37 110/63 (79) 97 03/30/18 11:00 122 37 115/73 (87) 99 03/30/18 11:00 115/73 03/30/18 10:45 122 37 113/60 (77) 100 03/30/18 10:30 120 38 106/66 (79) 100 03/30/18 10:30 106/66 03/30/18 10:15 121 37 123/71 (88) 100 03/30/18 10:01 116/68 03/30/18 10:00 120 32 117/63 (81) 100 Height (Feet): 5 Height (Inches): 3.00 Weight (Pounds): 159 Objective General Appearance: no apparent distress, alert, GCS 15, non-toxic, other - frail, elderly, chronically ill, contracted, non-verbal, Chronically Ill HEENT: normocephalic, atraumatic, bilateral eye normal inspection, bilateral eye PERRL Respiratory: chest non-tender, lungs clear, normal breath sounds, no respiratory distress, no retraction, no accessory muscle use, speaking full sentences Cardiovascular : no edema, tachycardia, systolic murmur, irregularly irregular Gastrointestinal: normal bowel sounds, non tender, soft, non-distended, no guarding, no rebound, other - colostomy bag in place. Musculoskeletal: back normal, gait/station normal, normal range of motion, non- tender Neurologic: alert, other - non-focal. Contracted, non-verbal Skin: no rash, warm/dry, well hydrated, other - Multiple DU Microbiology Date/Time Source Procedure Growth Status 03/29/18 12:05 Blood Blood Culture - Preliminary NO GROWTH AFTER 24 HOURS Resulted 03/29/18 12:00 Blood Blood Culture - Preliminary NO GROWTH AFTER 24 HOURS Resulted 03/29/18 14:00 Sputum Induced Gram Stain - Final Resulted 03/29/18 14:00 Sputum Culture - Preliminary Staphylococcus Aureus Gram Negative Bacillus 1 Leda Albicans Resulted 03/29/18 14:00 Stool Clostridium difficile Toxin Assay - Final Complete 03/29/18 12:10 Urine,Clean Catch Urine Culture - Preliminary YEAST Resulted Laboratory Tests Test 03/31/18 05:55 White Blood Count 8.8 K/UL (4.8-10.8) Red Blood Count 2.87 M/UL (4.20-5.40) L Hemoglobin 8.9 G/DL (12.0-16.0) L Hematocrit 27.4 % (37.0-47.0) L Mean Corpuscular Volume 96 FL (80-99) Mean Corpuscular Hemoglobin 31.0 PG (27.0-31.0) Mean Corpuscular Hemoglobin Concent 32.4 G/DL (32.0-36.0) Red Cell Distribution Width 16.0 % (11.6-14.8) H Platelet Count 286 K/UL (150-450) Mean Platelet Volume 5.0 FL (6.5-10.1) L Neutrophils (%) (Auto) 74.7 % (45.0-75.0) Lymphocytes (%) (Auto) 11.5 % (20.0-45.0) L Monocytes (%) (Auto) 11.5 % (1.0-10.0) H Eosinophils (%) (Auto) 1.1 % (0.0-3.0) Basophils (%) (Auto) 1.3 % (0.0-2.0) Sodium Level 137 MMOL/L (136-145) Potassium Level 3.9 MMOL/L (3.5-5.1) Chloride Level 105 MMOL/L (98-107) Carbon Dioxide Level 31 MMOL/L (21-32) Anion Gap 2 mmol/L (5-15) L Blood Urea Nitrogen 6 mg/dL (7-18) L Creatinine 0.4 MG/DL (0.55-1.30) L Estimat Glomerular Filtration Rate mL/min (>60) Glucose Level 85 MG/DL (74-106) Calcium Level 7.8 MG/DL (8.5-10.1) L Total Bilirubin 0.4 MG/DL (0.2-1.0) Aspartate Amino Transf (AST/SGOT) 22 U/L (15-37) Alanine Aminotransferase (ALT/SGPT) 12 U/L (12-78) Alkaline Phosphatase 100 U/L (46-116) Pro-B-Type Natriuretic Peptide 2451 pg/mL (0-125) H Total Protein 4.6 G/DL (6.4-8.2) L Albumin 1.2 G/DL (3.4-5.0) L Globulin 3.4 g/dL Albumin/Globulin Ratio 0.4 (1.0-2.7) L Current Medications Medications (Trade) Dose Ordered Sig/Cele Route PRN Reason Start Time Stop Time Status Last Admin Dose Admin Acetaminophen (Tylenol) 650 mg Q4H PRN PEG fever (temp>100.5F) 03/26/18 16:00 04/17/18 05:44 03/28/18 08:05 Acetylcysteine (Mucomyst) 200 mg Q6HRT HHN 03/23/18 19:00 04/22/18 00:59 03/31/18 08:10 Amiodarone HCl 900 mg/Dextrose 500 ml @ 16.66 mls/ hr Q24H IV 03/30/18 16:00 03/31/18 15:59 03/30/18 16:12 Cefepime HCl 1 gm/ Dextrose 55 ml @ 110 mls/hr Q24H IVPB 03/27/18 14:00 04/03/18 13:59 03/30/18 13:30 Chlorhexidine Gluconate (Sahra-Hex 2%) 1 applic DAILY@2000 TOPIC 03/23/18 20:00 04/13/18 19:59 03/30/18 20:22 Digoxin (Lanoxin) 0.125 mg DAILY IVP 03/30/18 09:00 04/29/18 08:59 03/31/18 08:48 Gabapentin (Neurontin) 300 mg TID PEG 03/26/18 18:00 04/25/18 17:59 03/31/18 08:48 Ipratropium [place] (Atrovent) 500 mcg Q4H PRN HHN Shortness of Breath 03/28/18 20:30 04/02/18 20:29 03/31/18 08:10 Levalbuterol HCl (Xopenex) 1.25 mg Q4H PRN HHN Shortness of Breath 03/28/18 20:30 04/02/18 20:29 03/30/18 12:43 Metronidazole (Flagyl) 500 mg Q8HR GT 03/27/18 14:00 04/03/18 13:59 03/31/18 06:44 Nitroglycerin (Ntg) 0.4 mg Q5M PRN SL Prn Chest Pain 03/23/18 16:35 04/05/18 17:10 Norepinephrine Bitartrate 4 mg/ Dextrose 250 ml @ 0 mls/hr Q24H IV 03/23/18 18:30 04/22/18 18:29 03/30/18 10:01 Olanzapine (ZyPREXA) 2.5 mg Q6H PRN GT agitation 03/26/18 16:00 04/07/18 15:59 Ondansetron HCl (Zofran) 4 mg Q6H PRN IVP Nausea & Vomiting 03/23/18 16:00 04/05/18 15:59 Pantoprazole (Protonix) 40 mg EVERY 12 HOURS IVP 03/27/18 21:00 04/26/18 20:59 03/31/18 08:47 Polyethylene Glycol (Miralax) 17 gm DAILYPRN PRN GT Constipation 03/26/18 16:00 04/22/18 15:59 Promethazine HCl/ Codeine (Phenergan with Codeine) 5 ml Q4H PRN PEG For Cough 03/26/18 16:00 04/05/18 17:11 Tamsulosin HCl (Flomax) 0.4 mg BEDTIME ORAL 03/23/18 21:00 04/05/18 20:59 03/30/18 21:15 Vancomycin HCl (Vanco rx to dose) 1 ea DAILY PRN MISC Per rx protocol 03/24/18 09:00 04/14/18 10:59 Vancomycin HCl 500 mg/Dextrose 110 ml @ 110 mls/hr Q12HR@0800,2000 IVPB 03/30/18 08:00 04/04/18 07:59 03/31/18 08:48 Sussy Daniel M.D. Mar 31, 2018 10:05
--- NOTE | 2018-03-31 10:54 | Pulmonolgy Critical Care Note ---
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, 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, 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 - Objective Last 24 Hour Vital Signs Date Time Temp Pulse Resp B/P (MAP) Pulse Ox O2 Delivery O2 Flow Rate FiO2 03/31/18 09:30 118 36 109/64 (79) 100 03/31/18 09:00 117 36 112/69 (83) 99 03/31/18 08:48 114 03/31/18 08:30 115 35 111/69 (83) 99 03/31/18 08:00 Venturi Mask 15.0 Venturi Mask 03/31/18 08:00 115 39 112/73 (86) 100 03/31/18 07:30 117 26 100 Venturi Mask 14.0 55 03/31/18 07:30 113 30 108/72 (84) 100 03/31/18 07:15 Venturi Mask 15.0 55 03/31/18 07:15 115 24 100 Venturi Mask 14.0 55 03/31/18 07:15 98 Venturi Mask 14.0 55 03/31/18 07:00 97.6 116 39 106/56 (73) 100 03/31/18 06:30 112 20 102/66 (78) 100 03/31/18 06:00 112 20 110/66 (81) 100 03/31/18 05:30 101 20 100/71 (81) 100 03/31/18 05:00 102 19 99/71 (80) 100 03/31/18 04:30 115 19 102/62 (75) 100 03/31/18 04:00 92 03/31/18 04:00 98.0 105 19 90/61 (71) 100 03/31/18 04:00 Venturi Mask 15.0 Venturi Mask 03/31/18 03:30 96 19 105/60 (75) 100 03/31/18 03:00 95 19 100/56 (71) 100 03/31/18 02:30 111 33 97/58 (71) 100 03/31/18 02:00 110 34 103/58 (73) 100 03/31/18 01:30 106 20 90/60 (70) 100 03/31/18 01:17 110 37 100 Venturi Mask 14.0 55 03/31/18 01:02 112 33 100 Venturi Mask 14.0 55 03/31/18 01:00 112 20 86/60 (69) 100 03/31/18 00:30 106 20 82/49 (60) 100 03/31/18 00:00 98.4 109 17 84/53 (63) 100 03/31/18 00:00 Venturi Mask 15.0 Venturi Mask 03/31/18 00:00 109 03/31/18 00:00 104 03/30/18 23:30 111 17 91/37 (55) 100 03/30/18 23:00 111 17 94/53 (67) 100 03/30/18 22:30 108 24 84/40 (55) 98 03/30/18 22:00 105 24 96/56 (69) 98 03/30/18 21:30 107 20 87/54 (65) 100 03/30/18 21:00 112 37 96/62 (73) 100 03/30/18 20:30 113 39 107/71 (83) 100 03/30/18 20:00 113 29 97/64 (75) 99 03/30/18 20:00 105 03/30/18 20:00 Venturi Mask 15.0 Venturi Mask 03/30/18 19:29 108 31 100 Venturi Mask 14.0 55 03/30/18 19:10 118 26 100 Venturi Mask 14.0 55 03/30/18 19:10 Venturi Mask 14.0 55 03/30/18 19:10 100 Venturi Mask 14.0 55 03/30/18 19:00 116 18 103/65 (78) 99 03/30/18 18:30 98.0 101 18 98/57 (71) 96 03/30/18 18:00 108 18 104/59 (74) 99 03/30/18 17:30 102 18 86/56 (66) 100 03/30/18 17:00 105 19 106/64 (78) 100 03/30/18 16:30 103 20 109/59 (76) 100 03/30/18 16:00 98.4 113 18 101/63 (76) 100 03/30/18 16:00 Venturi Mask 15.0 Venturi Mask 03/30/18 16:00 104 03/30/18 15:30 112 17 101/59 (73) 100 03/30/18 15:00 99 18 85/48 (60) 98 03/30/18 14:30 123 19 95/58 (70) 99 03/30/18 14:30 102 25 98/56 (70) 98 03/30/18 14:00 123 25 97/58 (71) 99 03/30/18 13:30 121 34 101/77 (85) 95 03/30/18 13:00 118 23 99/60 (73) 98 03/30/18 12:53 110 25 100 Venturi Mask 14.0 55 03/30/18 12:43 106 25 99 Venturi Mask 14.0 55 03/30/18 12:30 122 24 100/64 (76) 100 03/30/18 12:00 98.6 117 23 111/63 (79) 99 03/30/18 12:00 Venturi Mask 15.0 Venturi Mask 03/30/18 12:00 119 03/30/18 11:45 118 26 110/54 (72) 98 03/30/18 11:30 120 39 108/61 (77) 96 03/30/18 11:15 123 37 110/63 (79) 97 03/30/18 11:00 122 37 115/73 (87) 99 03/30/18 11:00 115/73 Status: awake Condition: critical Neck: full ROM Lungs: chest wall tender Heart: HR/BP unstable Abdomen: soft, active bowel sounds Extremities: edema Decubiti: location Micro: Microbiology Date/Time Source Procedure Growth Status 03/29/18 12:05 Blood Blood Culture - Preliminary NO GROWTH AFTER 24 HOURS Resulted 03/29/18 12:00 Blood Blood Culture - Preliminary NO GROWTH AFTER 24 HOURS Resulted 03/29/18 14:00 Sputum Induced Gram Stain - Final Resulted 03/29/18 14:00 Sputum Culture - Preliminary Staphylococcus Aureus Gram Negative Bacillus 1 Leda Albicans Resulted 03/29/18 14:00 Stool Clostridium difficile Toxin Assay - Final Complete 03/29/18 12:10 Urine,Clean Catch Urine Culture - Preliminary YEAST Resulted Accucheck: 111 Critical Care - Subjective ROS Limited/Unobtainable: Yes FI02: 55 Sputum Amount: Moderate Tube Feeding Amount: 20 I&O: Intake and Output 03/30/18 03/31/18 19:00 07:00 Intake Total 598.68 ml 449.92 ml Output Total 870 ml 990 ml Balance -271.32 ml -540.08 ml Intake Free Water 100 ml IV Total 433.68 ml 309.92 ml Tube Feeding 65 ml 140 ml Output Urine Total 770 ml 790 ml Stool Total 100 ml 200 ml # Bowel Movements 1 CXR: left effusion Labs: Laboratory Tests Test 03/31/18 05:55 White Blood Count 8.8 K/UL (4.8-10.8) Red Blood Count 2.87 M/UL (4.20-5.40) L Hemoglobin 8.9 G/DL (12.0-16.0) L Hematocrit 27.4 % (37.0-47.0) L Mean Corpuscular Volume 96 FL (80-99) Mean Corpuscular Hemoglobin 31.0 PG (27.0-31.0) Mean Corpuscular Hemoglobin Concent 32.4 G/DL (32.0-36.0) Red Cell Distribution Width 16.0 % (11.6-14.8) H Platelet Count 286 K/UL (150-450) Mean Platelet Volume 5.0 FL (6.5-10.1) L Neutrophils (%) (Auto) 74.7 % (45.0-75.0) Lymphocytes (%) (Auto) 11.5 % (20.0-45.0) L Monocytes (%) (Auto) 11.5 % (1.0-10.0) H Eosinophils (%) (Auto) 1.1 % (0.0-3.0) Basophils (%) (Auto) 1.3 % (0.0-2.0) Sodium Level 137 MMOL/L (136-145) Potassium Level 3.9 MMOL/L (3.5-5.1) Chloride Level 105 MMOL/L (98-107) Carbon Dioxide Level 31 MMOL/L (21-32) Anion Gap 2 mmol/L (5-15) L Blood Urea Nitrogen 6 mg/dL (7-18) L Creatinine 0.4 MG/DL (0.55-1.30) L Estimat Glomerular Filtration Rate mL/min (>60) Glucose Level 85 MG/DL (74-106) Calcium Level 7.8 MG/DL (8.5-10.1) L Total Bilirubin 0.4 MG/DL (0.2-1.0) Aspartate Amino Transf (AST/SGOT) 22 U/L (15-37) Alanine Aminotransferase (ALT/SGPT) 12 U/L (12-78) Alkaline Phosphatase 100 U/L (46-116) Pro-B-Type Natriuretic Peptide 2451 pg/mL (0-125) H Total Protein 4.6 G/DL (6.4-8.2) L Albumin 1.2 G/DL (3.4-5.0) L Globulin 3.4 g/dL Albumin/Globulin Ratio 0.4 (1.0-2.7) L Rishi Gutierrez MD Mar 31, 2018 10:54
--- NOTE | 2018-03-31 13:19 | Diagnostic Imaging Report ---
Indication: Dyspnea Comparison: 03/29/2018 A single view chest radiograph was obtained. Findings: Interstitial edema demonstrated. Moderate left pleural effusion, low lung volumes again demonstrated. Left jugular line is stable. IMPRESSION: Pulmonary edema. Marginal improvement since the last occasion
[2018-03-31] MEDS: Levalbuterol Inh UD 1.25mg/0.5ml HHN PRN ×2 (14:13→19:42)
[2018-03-31] MEDS: Metoclopramide 10mg/10ml Liq NG SCH ×2 (14:33→22:45)
--- NOTE | 2018-03-31 14:55 | GI Progress Note ---
Assessment/Plan Problems: (1) Encounter for PEG (percutaneous endoscopic gastrostomy) ICD Codes: Z43.1 - Encounter for attention to gastrostomy SNOMED: 896154117, 344294942 (2) At high risk for aspiration ICD Codes: Z91.89 - Other specified personal risk factors, not elsewhere classified SNOMED: 353018434 (3) Protein-calorie malnutrition, severe ICD Codes: E43 - Unspecified severe protein-calorie malnutrition SNOMED: 280145620 (4) Dysphasia ICD Codes: R47.02 - Dysphasia SNOMED: 64278287 Status: not improved, unchanged Status Narrative Discussed with Dr. Velez Assessment/Plan s/p GT placement GTF and care, reported patient is not tolerating her G-tube feedings Add low-dose Reglan 5 mg ATC, restart feedings at low rate then advance to goal fu labs Follow-up pulmonary recommendations The patient was seen and examined at bedside and all new and available data was reviewed in the patients chart. I agree with the above findings, impression and plan. (Patient seen earlier today. Signature stamp does not reflect patient encounter time.). - Ernesto Velez MD Subjective Subjective Limited Objective Last 24 Hour Vital Signs Date Time Temp Pulse Resp B/P (MAP) Pulse Ox O2 Delivery O2 Flow Rate FiO2 03/31/18 14:30 138 38 104/61 (75) 100 03/31/18 14:23 123 28 100 Venturi Mask 14.0 55 03/31/18 14:12 128 24 99 Venturi Mask 14.0 55 03/31/18 14:00 128 31 106/76 (86) 100 03/31/18 13:30 130 32 95/65 (75) 100 03/31/18 13:00 129 32 109/71 (84) 100 03/31/18 12:30 137 36 107/90 (96) 95 03/31/18 12:00 117 03/31/18 12:00 Venturi Mask Venturi Mask 03/31/18 12:00 98.0 136 32 102/56 (71) 95 03/31/18 11:30 114 32 112/71 (85) 100 03/31/18 11:00 117 32 112/72 (85) 100 03/31/18 10:30 133 36 111/71 (84) 100 03/31/18 10:00 123 36 111/69 (83) 100 03/31/18 09:30 118 36 109/64 (79) 100 03/31/18 09:00 117 36 112/69 (83) 99 03/31/18 08:48 114 03/31/18 08:30 115 35 111/69 (83) 99 03/31/18 08:00 Venturi Mask 15.0 Venturi Mask 03/31/18 08:00 115 39 112/73 (86) 100 03/31/18 08:00 114 03/31/18 07:30 117 26 100 Venturi Mask 14.0 55 03/31/18 07:30 113 30 108/72 (84) 100 03/31/18 07:15 Venturi Mask 15.0 55 03/31/18 07:15 115 24 100 Venturi Mask 14.0 55 03/31/18 07:15 98 Venturi Mask 14.0 55 03/31/18 07:00 97.6 116 39 106/56 (73) 100 03/31/18 06:30 112 20 102/66 (78) 100 03/31/18 06:00 112 20 110/66 (81) 100 03/31/18 05:30 101 20 100/71 (81) 100 03/31/18 05:00 102 19 99/71 (80) 100 03/31/18 04:30 115 19 102/62 (75) 100 03/31/18 04:00 92 03/31/18 04:00 98.0 105 19 90/61 (71) 100 03/31/18 04:00 Venturi Mask 15.0 Venturi Mask 03/31/18 03:30 96 19 105/60 (75) 100 03/31/18 03:00 95 19 100/56 (71) 100 03/31/18 02:30 111 33 97/58 (71) 100 03/31/18 02:00 110 34 103/58 (73) 100 03/31/18 01:30 106 20 90/60 (70) 100 03/31/18 01:17 110 37 100 Venturi Mask 14.0 55 03/31/18 01:02 112 33 100 Venturi Mask 14.0 55 03/31/18 01:00 112 20 86/60 (69) 100 03/31/18 00:30 106 20 82/49 (60) 100 03/31/18 00:00 98.4 109 17 84/53 (63) 100 03/31/18 00:00 Venturi Mask 15.0 Venturi Mask 03/31/18 00:00 109 03/31/18 00:00 104 03/30/18 23:30 111 17 91/37 (55) 100 03/30/18 23:00 111 17 94/53 (67) 100 03/30/18 22:30 108 24 84/40 (55) 98 03/30/18 22:00 105 24 96/56 (69) 98 03/30/18 21:30 107 20 87/54 (65) 100 03/30/18 21:00 112 37 96/62 (73) 100 03/30/18 20:30 113 39 107/71 (83) 100 03/30/18 20:00 113 29 97/64 (75) 99 03/30/18 20:00 105 03/30/18 20:00 Venturi Mask 15.0 Venturi Mask 03/30/18 19:29 108 31 100 Venturi Mask 14.0 55 03/30/18 19:10 118 26 100 Venturi Mask 14.0 55 03/30/18 19:10 Venturi Mask 14.0 55 03/30/18 19:10 100 Venturi Mask 14.0 55 03/30/18 19:00 116 18 103/65 (78) 99 03/30/18 18:30 98.0 101 18 98/57 (71) 96 03/30/18 18:00 108 18 104/59 (74) 99 03/30/18 17:30 102 18 86/56 (66) 100 03/30/18 17:00 105 19 106/64 (78) 100 03/30/18 16:30 103 20 109/59 (76) 100 03/30/18 16:00 98.4 113 18 101/63 (76) 100 03/30/18 16:00 Venturi Mask 15.0 Venturi Mask 03/30/18 16:00 104 03/30/18 15:30 112 17 101/59 (73) 100 03/30/18 15:00 99 18 85/48 (60) 98 Intake and Output 03/30/18 03/31/18 19:00 07:00 Intake Total 598.68 ml 449.92 ml Output Total 870 ml 990 ml Balance -271.32 ml -540.08 ml Intake Free Water 100 ml IV Total 433.68 ml 309.92 ml Tube Feeding 65 ml 140 ml Output Urine Total 770 ml 790 ml Stool Total 100 ml 200 ml # Bowel Movements 1 Laboratory Tests Test 03/31/18 05:55 White Blood Count 8.8 K/UL (4.8-10.8) Red Blood Count 2.87 M/UL (4.20-5.40) L Hemoglobin 8.9 G/DL (12.0-16.0) L Hematocrit 27.4 % (37.0-47.0) L Mean Corpuscular Volume 96 FL (80-99) Mean Corpuscular Hemoglobin 31.0 PG (27.0-31.0) Mean Corpuscular Hemoglobin Concent 32.4 G/DL (32.0-36.0) Red Cell Distribution Width 16.0 % (11.6-14.8) H Platelet Count 286 K/UL (150-450) Mean Platelet Volume 5.0 FL (6.5-10.1) L Neutrophils (%) (Auto) 74.7 % (45.0-75.0) Lymphocytes (%) (Auto) 11.5 % (20.0-45.0) L Monocytes (%) (Auto) 11.5 % (1.0-10.0) H Eosinophils (%) (Auto) 1.1 % (0.0-3.0) Basophils (%) (Auto) 1.3 % (0.0-2.0) Sodium Level 137 MMOL/L (136-145) Potassium Level 3.9 MMOL/L (3.5-5.1) Chloride Level 105 MMOL/L (98-107) Carbon Dioxide Level 31 MMOL/L (21-32) Anion Gap 2 mmol/L (5-15) L Blood Urea Nitrogen 6 mg/dL (7-18) L Creatinine 0.4 MG/DL (0.55-1.30) L Estimat Glomerular Filtration Rate mL/min (>60) Glucose Level 85 MG/DL (74-106) Calcium Level 7.8 MG/DL (8.5-10.1) L Total Bilirubin 0.4 MG/DL (0.2-1.0) Aspartate Amino Transf (AST/SGOT) 22 U/L (15-37) Alanine Aminotransferase (ALT/SGPT) 12 U/L (12-78) Alkaline Phosphatase 100 U/L (46-116) Pro-B-Type Natriuretic Peptide 2451 pg/mL (0-125) H Total Protein 4.6 G/DL (6.4-8.2) L Albumin 1.2 G/DL (3.4-5.0) L Globulin 3.4 g/dL Albumin/Globulin Ratio 0.4 (1.0-2.7) L Height (Feet): 5 Height (Inches): 3.00 Weight (Pounds): 159 General Appearance: alert, thin Respiratory/Chest: other - Venturi mask Abdominal Exam: GT site - Clean dry and intact Thaddeus Galeana NP Mar 31, 2018 14:55
--- NOTE | 2018-03-31 15:39 | Cardiac Electrophysiology PN ---
Assessment/Plan Status Narrative Technically difficult study due to patient was contracted. Study quality precludes accurate assessment of regional wall motion. Normal left ventricular chamber size, systolic function and wall motion. Left ventricular ejection fraction estimated to be 60-65 %. Mild left ventricular hypertrophy. Small circumferential pericardial effusion. Mild left atrial enlargement. Right cardiac chamber sizes are within normal limits. Aortic valve calcification with decreased cusp excursion c/w aortic stenosis. Mildly thickened mitral valve leaflets with normal excursion. Moderate mitral annulus and aortic root calcification. Normal pulmonic valve structure. Normal tricuspid valve structure. Subcostal views not obtainable due to G tube. Assessment/Plan 1. Paroxysmal atrial fibrillation with rapid ventricular response. Off Cardizem drip as BP dropped to 70s. Echo EF 65%. On Digoxin 0.125 iv daily and Amio drip 0.5 mg 2. Urosepsis. On IV antibiotic per ID. 3. Hypotension, off levophed now and on IV fluid. 4. Sacral decubitus ulcer. 5. Dementia. 6. Dysphagia. S/P G-tube placement 03/21/17 KEIRY RN Subjective Subjective In ICU on Amiodrip 0.5 mg. Off Levophed . Still SOB . GT has high residual Objective Last 24 Hour Vital Signs Date Time Temp Pulse Resp B/P (MAP) Pulse Ox O2 Delivery O2 Flow Rate FiO2 03/31/18 15:00 139 30 98/66 (77) 93 03/31/18 14:30 138 38 104/61 (75) 100 03/31/18 14:23 123 28 100 Venturi Mask 14.0 55 03/31/18 14:12 128 24 99 Venturi Mask 14.0 55 03/31/18 14:00 128 31 106/76 (86) 100 03/31/18 13:30 130 32 95/65 (75) 100 03/31/18 13:00 129 32 109/71 (84) 100 03/31/18 12:30 137 36 107/90 (96) 95 03/31/18 12:00 117 03/31/18 12:00 Venturi Mask Venturi Mask 03/31/18 12:00 98.0 136 32 102/56 (71) 95 03/31/18 11:30 114 32 112/71 (85) 100 03/31/18 11:00 117 32 112/72 (85) 100 03/31/18 10:30 133 36 111/71 (84) 100 03/31/18 10:00 123 36 111/69 (83) 100 03/31/18 09:30 118 36 109/64 (79) 100 03/31/18 09:00 117 36 112/69 (83) 99 03/31/18 08:48 114 03/31/18 08:30 115 35 111/69 (83) 99 03/31/18 08:00 Venturi Mask 15.0 Venturi Mask 03/31/18 08:00 115 39 112/73 (86) 100 03/31/18 08:00 114 03/31/18 07:30 117 26 100 Venturi Mask 14.0 55 03/31/18 07:30 113 30 108/72 (84) 100 03/31/18 07:15 Venturi Mask 15.0 55 03/31/18 07:15 115 24 100 Venturi Mask 14.0 55 03/31/18 07:15 98 Venturi Mask 14.0 55 03/31/18 07:00 97.6 116 39 106/56 (73) 100 03/31/18 06:30 112 20 102/66 (78) 100 03/31/18 06:00 112 20 110/66 (81) 100 03/31/18 05:30 101 20 100/71 (81) 100 03/31/18 05:00 102 19 99/71 (80) 100 03/31/18 04:30 115 19 102/62 (75) 100 03/31/18 04:00 92 03/31/18 04:00 98.0 105 19 90/61 (71) 100 03/31/18 04:00 Venturi Mask 15.0 Venturi Mask 03/31/18 03:30 96 19 105/60 (75) 100 03/31/18 03:00 95 19 100/56 (71) 100 03/31/18 02:30 111 33 97/58 (71) 100 03/31/18 02:00 110 34 103/58 (73) 100 03/31/18 01:30 106 20 90/60 (70) 100 03/31/18 01:17 110 37 100 Venturi Mask 14.0 55 03/31/18 01:02 112 33 100 Venturi Mask 14.0 55 03/31/18 01:00 112 20 86/60 (69) 100 03/31/18 00:30 106 20 82/49 (60) 100 03/31/18 00:00 98.4 109 17 84/53 (63) 100 03/31/18 00:00 Venturi Mask 15.0 Venturi Mask 03/31/18 00:00 109 03/31/18 00:00 104 03/30/18 23:30 111 17 91/37 (55) 100 03/30/18 23:00 111 17 94/53 (67) 100 03/30/18 22:30 108 24 84/40 (55) 98 03/30/18 22:00 105 24 96/56 (69) 98 03/30/18 21:30 107 20 87/54 (65) 100 03/30/18 21:00 112 37 96/62 (73) 100 03/30/18 20:30 113 39 107/71 (83) 100 03/30/18 20:00 113 29 97/64 (75) 99 03/30/18 20:00 105 03/30/18 20:00 Venturi Mask 15.0 Venturi Mask 03/30/18 19:29 108 31 100 Venturi Mask 14.0 55 03/30/18 19:10 118 26 100 Venturi Mask 14.0 55 03/30/18 19:10 Venturi Mask 14.0 55 03/30/18 19:10 100 Venturi Mask 14.0 55 03/30/18 19:00 116 18 103/65 (78) 99 03/30/18 18:30 98.0 101 18 98/57 (71) 96 03/30/18 18:00 108 18 104/59 (74) 99 03/30/18 17:30 102 18 86/56 (66) 100 03/30/18 17:00 105 19 106/64 (78) 100 03/30/18 16:30 103 20 109/59 (76) 100 03/30/18 16:00 98.4 113 18 101/63 (76) 100 03/30/18 16:00 Venturi Mask 15.0 Venturi Mask 03/30/18 16:00 104 Intake and Output 03/30/18 03/31/18 19:00 07:00 Intake Total 598.68 ml 449.92 ml Output Total 870 ml 990 ml Balance -271.32 ml -540.08 ml Intake Free Water 100 ml IV Total 433.68 ml 309.92 ml Tube Feeding 65 ml 140 ml Output Urine Total 770 ml 790 ml Stool Total 100 ml 200 ml # Bowel Movements 1 Laboratory Tests Test 03/31/18 05:55 White Blood Count 8.8 K/UL (4.8-10.8) Red Blood Count 2.87 M/UL (4.20-5.40) L Hemoglobin 8.9 G/DL (12.0-16.0) L Hematocrit 27.4 % (37.0-47.0) L Mean Corpuscular Volume 96 FL (80-99) Mean Corpuscular Hemoglobin 31.0 PG (27.0-31.0) Mean Corpuscular Hemoglobin Concent 32.4 G/DL (32.0-36.0) Red Cell Distribution Width 16.0 % (11.6-14.8) H Platelet Count 286 K/UL (150-450) Mean Platelet Volume 5.0 FL (6.5-10.1) L Neutrophils (%) (Auto) 74.7 % (45.0-75.0) Lymphocytes (%) (Auto) 11.5 % (20.0-45.0) L Monocytes (%) (Auto) 11.5 % (1.0-10.0) H Eosinophils (%) (Auto) 1.1 % (0.0-3.0) Basophils (%) (Auto) 1.3 % (0.0-2.0) Sodium Level 137 MMOL/L (136-145) Potassium Level 3.9 MMOL/L (3.5-5.1) Chloride Level 105 MMOL/L (98-107) Carbon Dioxide Level 31 MMOL/L (21-32) Anion Gap 2 mmol/L (5-15) L Blood Urea Nitrogen 6 mg/dL (7-18) L Creatinine 0.4 MG/DL (0.55-1.30) L Estimat Glomerular Filtration Rate mL/min (>60) Glucose Level 85 MG/DL (74-106) Calcium Level 7.8 MG/DL (8.5-10.1) L Total Bilirubin 0.4 MG/DL (0.2-1.0) Aspartate Amino Transf (AST/SGOT) 22 U/L (15-37) Alanine Aminotransferase (ALT/SGPT) 12 U/L (12-78) Alkaline Phosphatase 100 U/L (46-116) Pro-B-Type Natriuretic Peptide 2451 pg/mL (0-125) H Total Protein 4.6 G/DL (6.4-8.2) L Albumin 1.2 G/DL (3.4-5.0) L Globulin 3.4 g/dL Albumin/Globulin Ratio 0.4 (1.0-2.7) L Microbiology Date/Time Source Procedure Growth Status 03/29/18 12:05 Blood Blood Culture - Preliminary Resulted 03/29/18 12:00 Blood Blood Culture - Preliminary NO GROWTH AFTER 24 HOURS Resulted 03/29/18 14:00 Sputum Induced Gram Stain - Final Resulted 03/29/18 14:00 Sputum Culture - Preliminary Staphylococcus Aureus Gram Negative Bacillus 1 Leda Albicans Resulted 03/29/18 14:00 Stool Clostridium difficile Toxin Assay - Final Complete 03/29/18 12:10 Urine,Clean Catch Urine Culture - Preliminary YEAST Resulted Objective HEAD AND NECK: No JVD. LUNGS: Coarse rhonchi bilaterally. CARDIOVASCULAR: Irregular tachy S1 and S2 with no gallop. ABDOMEN: Status post colostomy. GT in place EXTREMITIES: No pitting edema Fredrick Burk MD Mar 31, 2018 15:39
[2018-03-31] MEDS ORDERED: Digoxin 0.5mg/2ml Inj IVP SCH (15:45)
--- NOTE | 2018-03-31 18:41 | Internal Med Progress Note ---
Subjective Date of Service: Mar 31, 2018 Physician Name Shankar Betts Attending Physician Davian Scott MD Current Medications Medications (Trade) Dose Ordered Sig/Cele Route PRN Reason Start Time Stop Time Status Last Admin Dose Admin Acetaminophen (Tylenol) 650 mg Q4H PRN PEG fever (temp>100.5F) 03/26/18 16:00 04/17/18 05:44 03/28/18 08:05 Acetylcysteine (Mucomyst) 200 mg Q6HRT HHN 03/23/18 19:00 04/22/18 00:59 03/31/18 14:13 Amiodarone HCl 900 mg/Dextrose 500 ml @ 0 mls/hr Q24H IV 03/31/18 18:45 04/01/18 18:44 UNV Chlorhexidine Gluconate (Sahra-Hex 2%) 1 applic DAILY@2000 TOPIC 03/23/18 20:00 04/13/18 19:59 03/30/18 20:22 Digoxin (Lanoxin) 0.125 mg DAILY IVP 03/30/18 09:00 04/29/18 08:59 03/31/18 08:48 Ipratropium [place] (Atrovent) 500 mcg Q4H PRN HHN Shortness of Breath 03/28/18 20:30 04/02/18 20:29 03/31/18 14:13 Levalbuterol HCl (Xopenex) 1.25 mg Q4H PRN HHN Shortness of Breath 03/28/18 20:30 04/02/18 20:29 03/31/18 14:13 Metoclopramide HCl (Reglan) 5 mg EVERY 8 HOURS NG 03/31/18 14:00 04/30/18 13:59 03/31/18 14:33 Metronidazole (Flagyl) 500 mg Q8HR GT 03/27/18 14:00 04/03/18 13:59 03/31/18 14:33 Norepinephrine Bitartrate 4 mg/ Dextrose 250 ml @ 0 mls/hr Q24H IV 03/23/18 18:30 04/22/18 18:29 03/30/18 10:01 Olanzapine (ZyPREXA) 2.5 mg Q6H PRN GT agitation 03/26/18 16:00 04/07/18 15:59 Pantoprazole (Protonix) 40 mg EVERY 12 HOURS IVP 03/27/18 21:00 04/26/18 20:59 03/31/18 08:47 Polyethylene Glycol (Miralax) 17 gm DAILYPRN PRN GT Constipation 03/26/18 16:00 04/22/18 15:59 Tamsulosin HCl (Flomax) 0.4 mg BEDTIME ORAL 03/23/18 21:00 04/05/18 20:59 03/30/18 21:15 Vancomycin HCl (Vanco rx to dose) 1 ea DAILY PRN MISC Per rx protocol 03/24/18 09:00 04/14/18 10:59 Vancomycin HCl 500 mg/Dextrose 110 ml @ 110 mls/hr Q12HR@0800,2000 IVPB 03/30/18 08:00 04/04/18 07:59 03/31/18 08:48 Allergies: Coded Allergies: No Known Allergies (Unverified , 03/06/18) ROS Limited/Unobtainable: Yes Subjective 87 YO F admitted with hematuria and gen weakness. Now pyelonephritis respiratory distress and sepsis. Cover for Int Med-Dr Scott. ICU. On levophed ; Tolerating venturi mask. Afib with RVR Objective Last Vital Signs Date Time Temp Pulse Resp B/P (MAP) Pulse Ox O2 Delivery O2 Flow Rate FiO2 03/31/18 18:30 106 18 92/43 (59) 98 03/31/18 16:30 97.6 03/31/18 16:00 Venturi Mask Venturi Mask 03/31/18 14:23 14.0 55 Laboratory Tests Test 03/31/18 05:55 White Blood Count 8.8 K/UL (4.8-10.8) Red Blood Count 2.87 M/UL (4.20-5.40) L Hemoglobin 8.9 G/DL (12.0-16.0) L Hematocrit 27.4 % (37.0-47.0) L Mean Corpuscular Volume 96 FL (80-99) Mean Corpuscular Hemoglobin 31.0 PG (27.0-31.0) Mean Corpuscular Hemoglobin Concent 32.4 G/DL (32.0-36.0) Red Cell Distribution Width 16.0 % (11.6-14.8) H Platelet Count 286 K/UL (150-450) Mean Platelet Volume 5.0 FL (6.5-10.1) L Neutrophils (%) (Auto) 74.7 % (45.0-75.0) Lymphocytes (%) (Auto) 11.5 % (20.0-45.0) L Monocytes (%) (Auto) 11.5 % (1.0-10.0) H Eosinophils (%) (Auto) 1.1 % (0.0-3.0) Basophils (%) (Auto) 1.3 % (0.0-2.0) Sodium Level 137 MMOL/L (136-145) Potassium Level 3.9 MMOL/L (3.5-5.1) Chloride Level 105 MMOL/L (98-107) Carbon Dioxide Level 31 MMOL/L (21-32) Anion Gap 2 mmol/L (5-15) L Blood Urea Nitrogen 6 mg/dL (7-18) L Creatinine 0.4 MG/DL (0.55-1.30) L Estimat Glomerular Filtration Rate mL/min (>60) Glucose Level 85 MG/DL (74-106) Calcium Level 7.8 MG/DL (8.5-10.1) L Total Bilirubin 0.4 MG/DL (0.2-1.0) Aspartate Amino Transf (AST/SGOT) 22 U/L (15-37) Alanine Aminotransferase (ALT/SGPT) 12 U/L (12-78) Alkaline Phosphatase 100 U/L (46-116) Pro-B-Type Natriuretic Peptide 2451 pg/mL (0-125) H Total Protein 4.6 G/DL (6.4-8.2) L Albumin 1.2 G/DL (3.4-5.0) L Globulin 3.4 g/dL Albumin/Globulin Ratio 0.4 (1.0-2.7) L Microbiology Date/Time Source Procedure Growth Status 03/29/18 12:05 Blood Blood Culture - Preliminary Resulted 03/29/18 12:00 Blood Blood Culture - Preliminary NO GROWTH AFTER 24 HOURS Resulted 03/29/18 14:00 Sputum Induced Gram Stain - Final Resulted 03/29/18 14:00 Sputum Culture - Preliminary Staphylococcus Aureus Gram Negative Bacillus 1 Leda Albicans Resulted 03/29/18 14:00 Stool Clostridium difficile Toxin Assay - Final Complete 1/12/19 12:10 Urine,Clean Catch Urine Culture - Preliminary YEAST Resulted Intake and Output 03/30/18 03/31/18 19:00 07:00 Intake Total 598.68 ml 449.92 ml Output Total 870 ml 990 ml Balance -271.32 ml -540.08 ml Intake Free Water 100 ml IV Total 433.68 ml 309.92 ml Tube Feeding 65 ml 140 ml Output Urine Total 770 ml 790 ml Stool Total 100 ml 200 ml # Bowel Movements 1 Objective PHYSICAL EXAMINATION: GENERAL: The patient is a well-developed and well-nourished white female, in no apparent distress. HEENT: Eyes, pupils are equal and responsive to light and accommodation. Extraocular movements are intact. NECK: Supple without lymphadenopathy. CHEST: venturi mask; crackles and rales at bases; Decreased breath sounds at bilateral bases. Otherwise, clear to auscultation without wheezes or rales. CARDIOVASCULAR: Tachycardic. Regular rate and rhythm. S1, S2 are normal without murmurs, rubs, or gallops. ABDOMEN: Soft, nontender, and nondistended. Positive bowel sounds. No evidence of hepatosplenomegaly. Currently, no rebound or guarding noted. EXTREMITIES: Negative for clubbing, cyanosis, or edema. RECTAL/GENITAL: Deferred. NEUROLOGIC: Cranial nerves II through XII are grossly intact without focal deficits. Assessment/Plan Problem List: (1) Pyelonephritis Assessment & Plan: Pseudamonas and strep. See ID note-Continue cefepime and vanco (2) Sepsis (3) HTN (hypertension) Assessment & Plan: Currently hypotensive (4) Hypercholesteremia (5) Sacral decubitus ulcer, stage IV Assessment & Plan: See surgery note-dr Ramsay (6) Urinary tract infection Assessment & Plan: pseudamonas; continue cefepime per ID (7) Pneumonia Assessment & Plan: New RLL. Previously MRSA. Continue vanco per ID (8) Atrial fibrillation with RVR Assessment & Plan: Continue digoxin and amiodrone per cardiology (9) Respiratory distress Assessment & Plan: On venturi mask Status: not improved Shankar Betts MD Mar 31, 2018 18:41
[2018-03-31] MEDS ORDERED: Amiodarone 900 MG in D5W 500ml 482 ML IV SCH ×4 (19:00)
[2018-03-31] MEDS: Dyna-Hex 2% Top Sol 2oz TOPIC SCH (20:21)
[2018-03-31] MEDS: Tamsulosin 0.4mg cap ORAL SCH (20:39)
[2018-03-31] MEDS: Amiodarone 900 MG in D5W 500ml 482 ML IV SCH (20:52)
[2018-04-01] VITALS (46 sets, daily range): BP systolic 82–140; BP diastolic 34–92
[2018-04-01] MEDS: Levalbuterol Inh UD 1.25mg/0.5ml HHN PRN ×4 (01:40→19:17)
[2018-04-01] MEDS: Ipratropium 0.02% Inh Soln 2.5ml UD HHN PRN ×4 (01:40→19:17)
[2018-04-01] MEDS: Acetylcysteine 20% Soln 4ml HHN SCH ×4 (01:41→19:17)
[2018-04-01] MEDS: Metoclopramide 10mg/10ml Liq NG SCH ×3 (05:42→21:39)
[2018-04-01] MEDS: metroNIDAZOLE 500mg tab GT SCH (05:42)
[2018-04-01 06:00] LABS: BASOPHILS % (AUTO) 0.9 % (0.0-2.0); EOSINOPHILS % (AUTO) 0.2 % (0.0-3.0); HEMOGLOBIN 8.1 G/DL (12.0-16.0); LYMPHOCYTES % (AUTO) 8.4 % (20.0-45.0); MEAN CORPUSCULAR VOLUME 96 FL (80-99); MONOCYTES % (AUTO) 7.1 % (1.0-10.0); NEUTROPHILS % (AUTO) 83.5 % (45.0-75.0); PLATELET COUNT 341 K/UL (150-450); RED CELL DISTRIBUTION WIDTH 15.9 % (11.6-14.8); WHITE BLOOD COUNT 14.4 K/UL (4.8-10.8)
[2018-04-01 06:48] LABS: ALANINE AMINOTRANSFERASE 11 U/L (12-78); ALBUMIN 1.2 G/DL (3.4-5.0); ALBUMIN/GLOBULIN RATIO 0.3 (1.0-2.7); ALKALINE PHOSPHATASE 97 U/L (46-116); ANION GAP 6 mmol/L (5-15); ASPARTATE AMINO TRANSFERASE 30 U/L (15-37); BILIRUBIN,TOTAL 0.5 MG/DL (0.2-1.0); BLOOD UREA NITROGEN 9 mg/dL (7-18); CALCIUM 7.9 MG/DL (8.5-10.1); CARBON DIOXIDE 27 MMOL/L (21-32); CHLORIDE 104 MMOL/L (98-107); CREATININE 0.6 MG/DL (0.55-1.30); PHOSPHORUS 2.9 MG/DL (2.5-4.9); POTASSIUM 4.2 MMOL/L (3.5-5.1); SODIUM 137 MMOL/L (136-145)
[2018-04-01] MEDS: Vancomycin 500mg/D5W 110ml IVPB SCH ×4 (08:17→20:07)
[2018-04-01] MEDS: Acetaminophen 650mg/20.3ml PEG PRN (08:18)
[2018-04-01] MEDS: Pantoprazole Inj IVP SCH ×2 (08:18→21:18)
[2018-04-01] MEDS: Digoxin 0.5mg/2ml Inj IVP SCH (08:19)
--- NOTE | 2018-04-01 09:47 | Pulmonolgy Critical Care Note ---
Critical Care - Asmt/Plan Problems: (1) Respiratory distress (2) Pneumonia (3) Sacral decubitus ulcer, stage IV (4) Protein-calorie malnutrition, severe (5) At high risk for aspiration (6) Pleural effusion (7) Atrial fibrillation with RVR Respiratory: monitor respiratory rate, adjust FIO2, CXR Cardiac: continue pressors, continue to monitor HR/BP, other - lasix prn Renal: F/U I&O Infectious Disease: check cultures, continue antibiotics Gastrointestinal: continue feedings/current rate Endocrine: monitor blood sugar Hematologic: monitor H/H, transfuse if hgb<8.5 Neurologic: PRN Ativan, keep patient comfortable Affect: PRN ativan Prophylaxis: Protonix, Heparin Disposition: keep in ICU 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, 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, 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 with: nurses, consultants, 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 - Objective Last 24 Hour Vital Signs Date Time Temp Pulse Resp B/P (MAP) Pulse Ox O2 Delivery O2 Flow Rate FiO2 04/01/18 09:30 93 33 82/44 (57) 91 04/01/18 09:00 99.6 99 37 82/44 (57) 91 04/01/18 08:48 99.6 04/01/18 08:19 105 04/01/18 08:00 Venturi Mask 04/01/18 08:00 81 04/01/18 08:00 100.0 103 36 97/43 (61) 94 04/01/18 07:42 103 26 99 Venturi Mask 14.0 55 04/01/18 07:37 Venturi Mask 14.0 55 04/01/18 07:37 93 Venturi Mask 14.0 55 04/01/18 07:37 95 26 94 Venturi Mask 14.0 55 04/01/18 07:30 106 33 82/49 (60) 92 04/01/18 07:00 103 27 105/58 (74) 92 04/01/18 06:30 105 27 101/58 (72) 92 04/01/18 06:00 104 27 91/58 (69) 92 04/01/18 05:30 97 27 97/45 (62) 92 04/01/18 05:00 97 35 108/92 (97) 92 04/01/18 04:00 Venturi Mask 04/01/18 04:00 96 04/01/18 04:00 99.0 102 35 86/48 (61) 92 04/01/18 03:30 103 35 86/48 (61) 92 04/01/18 03:00 103 35 96/53 (67) 92 04/01/18 02:30 104 35 89/59 (69) 91 04/01/18 02:03 109 32 96 Venturi Mask 10.0 45 04/01/18 02:00 103 35 94/56 (69) 93 04/01/18 01:41 109 26 92 Venturi Mask 10.0 45 04/01/18 01:30 103 35 101/67 (78) 94 04/01/18 01:00 104 35 105/59 (74) 94 04/01/18 00:30 26 90/52 (65) 94 04/01/18 00:00 Venturi Mask 04/01/18 00:00 99.2 105 26 99/61 (74) 94 04/01/18 00:00 100 03/31/18 23:30 105 24 111/60 (77) 90 03/31/18 23:00 103 24 116/72 (87) 94 03/31/18 22:30 102 24 107/51 (69) 94 03/31/18 22:00 99 24 90/37 (54) 94 03/31/18 21:30 100 24 79/59 (66) 94 03/31/18 21:00 100 26 92/41 (58) 94 03/31/18 20:30 102 26 82/43 (56) 96 03/31/18 20:22 107 30 Venturi Mask 10.0 45 03/31/18 20:00 99.0 102 28 94/39 (57) 96 03/31/18 20:00 Venturi Mask Venturi Mask 03/31/18 20:00 107 30 98 Venturi Mask 10.0 45 03/31/18 19:43 96 Venturi Mask 12.0 50 03/31/18 19:43 Venturi Mask 12.0 50 03/31/18 19:42 103 31 98 Venturi Mask 12.0 50 03/31/18 19:30 101 25 88/47 (61) 98 03/31/18 19:00 94 18 89/49 (62) 98 03/31/18 18:30 106 18 92/43 (59) 98 03/31/18 18:30 92/43 1/14/19 18:00 102 24 85/38 (54) 98 03/31/18 17:30 112 25 80/42 (55) 92 03/31/18 17:00 115 32 112/98 (103) 92 03/31/18 16:30 97.6 115 32 94/52 (66) 94 03/31/18 16:09 134 03/31/18 16:00 139 30 114/88 (97) 92 03/31/18 16:00 137 03/31/18 16:00 Venturi Mask Venturi Mask 03/31/18 15:30 141 34 90/66 (74) 90 03/31/18 15:00 139 30 98/66 (77) 93 03/31/18 14:30 138 38 104/61 (75) 100 03/31/18 14:23 123 28 100 Venturi Mask 14.0 55 03/31/18 14:12 128 24 99 Venturi Mask 14.0 55 03/31/18 14:00 128 31 106/76 (86) 100 03/31/18 13:30 130 32 95/65 (75) 100 03/31/18 13:00 129 32 109/71 (84) 100 03/31/18 12:30 137 36 107/90 (96) 95 03/31/18 12:00 117 03/31/18 12:00 Venturi Mask Venturi Mask 03/31/18 12:00 98.0 136 32 102/56 (71) 95 03/31/18 11:30 114 32 112/71 (85) 100 03/31/18 11:00 117 32 112/72 (85) 100 03/31/18 10:30 133 36 111/71 (84) 100 03/31/18 10:00 123 36 111/69 (83) 100 Status: awake Condition: critical HEENT: atraumatic Lungs: chest wall tender Heart: HR/BP stable, regular Abdomen: non-tender Extremities: no C/C/E, edema Micro: Microbiology Date/Time Source Procedure Growth Status 03/29/18 12:05 Blood Blood Culture - Preliminary Staphylococcus Sp Coag Neg Resulted 03/29/18 12:00 Blood Blood Culture - Preliminary NO GROWTH AFTER 48 HOURS Resulted 03/29/18 14:00 Sputum Induced Gram Stain - Final Complete 03/29/18 14:00 Sputum Culture - Final Staphylococcus Aureus - Mrsa Pseudomonas Aeruginosa Leda Albicans Complete 03/29/18 14:00 Stool Clostridium difficile Toxin Assay - Final Complete 03/29/18 12:10 Urine,Clean Catch Urine Culture - Preliminary Leda Albicans Resulted Accucheck: 111 Critical Care - Subjective Condition: critical EKG Rhythm: Atrial Fibrillation FI02: 55 Sputum Amount: Moderate Tube Feeding Amount: 20 I&O: Intake and Output 03/31/18 04/01/18 19:00 07:00 Intake Total 299.94 ml 233.28 ml Output Total 810 ml 470 ml Balance -510.06 ml -236.72 ml IV Total 259.94 ml 133.28 ml Tube Feeding 40 ml 100 ml Output Urine Total 710 ml 470 ml Stool Total 100 ml CXR: pulmonary edema Labs: Laboratory Tests Test 04/01/18 04:45 White Blood Count 14.4 K/UL (4.8-10.8) #H Red Blood Count 2.60 M/UL (4.20-5.40) L Hemoglobin 8.1 G/DL (12.0-16.0) L Hematocrit 25.0 % (37.0-47.0) L Mean Corpuscular Volume 96 FL (80-99) Mean Corpuscular Hemoglobin 31.2 PG (27.0-31.0) H Mean Corpuscular Hemoglobin Concent 32.5 G/DL (32.0-36.0) Red Cell Distribution Width 15.9 % (11.6-14.8) H Platelet Count 341 K/UL (150-450) Mean Platelet Volume 4.3 FL (6.5-10.1) L Neutrophils (%) (Auto) 83.5 % (45.0-75.0) H Lymphocytes (%) (Auto) 8.4 % (20.0-45.0) L Monocytes (%) (Auto) 7.1 % (1.0-10.0) Eosinophils (%) (Auto) 0.2 % (0.0-3.0) Basophils (%) (Auto) 0.9 % (0.0-2.0) Erythrocyte Sedimentation Rate 90 MM/HR (0-30) H Sodium Level 137 MMOL/L (136-145) Potassium Level 4.2 MMOL/L (3.5-5.1) Chloride Level 104 MMOL/L (98-107) Carbon Dioxide Level 27 MMOL/L (21-32) Anion Gap 6 mmol/L (5-15) Blood Urea Nitrogen 9 mg/dL (7-18) Creatinine 0.6 MG/DL (0.55-1.30) Estimat Glomerular Filtration Rate mL/min (>60) Glucose Level 104 MG/DL (74-106) Calcium Level 7.9 MG/DL (8.5-10.1) L Phosphorus Level 2.9 MG/DL (2.5-4.9) Magnesium Level 1.6 MG/DL (1.8-2.4) L Total Bilirubin 0.5 MG/DL (0.2-1.0) Aspartate Amino Transf (AST/SGOT) 30 U/L (15-37) Alanine Aminotransferase (ALT/SGPT) 11 U/L (12-78) L Alkaline Phosphatase 97 U/L (46-116) C-Reactive Protein, Quantitative 8.2 mg/dL (0.00-0.90) H Total Protein 4.8 G/DL (6.4-8.2) L Albumin 1.2 G/DL (3.4-5.0) L Globulin 3.6 g/dL Albumin/Globulin Ratio 0.3 (1.0-2.7) L Rishi Guteirrez MD Apr 01, 2018 09:47
--- NOTE | 2018-04-01 10:11 | Cardiac Electrophysiology PN ---
Assessment/Plan Status Narrative Technically difficult study due to patient was contracted. Study quality precludes accurate assessment of regional wall motion. Normal left ventricular chamber size, systolic function and wall motion. Left ventricular ejection fraction estimated to be 60-65 %. Mild left ventricular hypertrophy. Small circumferential pericardial effusion. Mild left atrial enlargement. Right cardiac chamber sizes are within normal limits. Aortic valve calcification with decreased cusp excursion c/w aortic stenosis. Mildly thickened mitral valve leaflets with normal excursion. Moderate mitral annulus and aortic root calcification. Normal pulmonic valve structure. Normal tricuspid valve structure. Subcostal views not obtainable due to G tube. Assessment/Plan 1. Paroxysmal atrial fibrillation with rapid ventricular response. Off Cardizem drip as BP dropped to 70s. Echo EF 65%. On Digoxin 0.125 iv daily and Amio drip 0.5 mg Cant switch to GT due to poor absorption and high residual 2. Urosepsis. On IV antibiotic per ID. 3. Hypotension, off levophed and on IV fluid. 4. Sacral decubitus ulcer. 5. Dementia. 6. Dysphagia. S/P G-tube placement 03/21/17 KEIRY RN Subjective Subjective In ICU on Amio drip 0.5 mg and iv Digoxin. Off Levophed . GT has high residual Objective Last 24 Hour Vital Signs Date Time Temp Pulse Resp B/P (MAP) Pulse Ox O2 Delivery O2 Flow Rate FiO2 04/01/18 09:30 93 33 82/44 (57) 91 04/01/18 09:00 99.6 99 37 82/44 (57) 91 04/01/18 08:48 99.6 04/01/18 08:19 105 04/01/18 08:00 Venturi Mask 04/01/18 08:00 81 04/01/18 08:00 100.0 103 36 97/43 (61) 94 04/01/18 07:42 103 26 99 Venturi Mask 14.0 55 04/01/18 07:37 Venturi Mask 14.0 55 04/01/18 07:37 93 Venturi Mask 14.0 55 04/01/18 07:37 95 26 94 Venturi Mask 14.0 55 04/01/18 07:30 106 33 82/49 (60) 92 04/01/18 07:00 103 27 105/58 (74) 92 04/01/18 06:30 105 27 101/58 (72) 92 1/15/19 06:00 104 27 91/58 (69) 92 04/01/18 05:30 97 27 97/45 (62) 92 04/01/18 05:00 97 35 108/92 (97) 92 04/01/18 04:00 Venturi Mask 04/01/18 04:00 96 04/01/18 04:00 99.0 102 35 86/48 (61) 92 04/01/18 03:30 103 35 86/48 (61) 92 04/01/18 03:00 103 35 96/53 (67) 92 04/01/18 02:30 104 35 89/59 (69) 91 04/01/18 02:03 109 32 96 Venturi Mask 10.0 45 04/01/18 02:00 103 35 94/56 (69) 93 04/01/18 01:41 109 26 92 Venturi Mask 10.0 45 04/01/18 01:30 103 35 101/67 (78) 94 04/01/18 01:00 104 35 105/59 (74) 94 04/01/18 00:30 26 90/52 (65) 94 04/01/18 00:00 Venturi Mask 04/01/18 00:00 99.2 105 26 99/61 (74) 94 04/01/18 00:00 100 03/31/18 23:30 105 24 111/60 (77) 90 03/31/18 23:00 103 24 116/72 (87) 94 03/31/18 22:30 102 24 107/51 (69) 94 03/31/18 22:00 99 24 90/37 (54) 94 03/31/18 21:30 100 24 79/59 (66) 94 03/31/18 21:00 100 26 92/41 (58) 94 03/31/18 20:30 102 26 82/43 (56) 96 03/31/18 20:22 107 30 Venturi Mask 10.0 45 03/31/18 20:00 99.0 102 28 94/39 (57) 96 03/31/18 20:00 Venturi Mask Venturi Mask 03/31/18 20:00 107 30 98 Venturi Mask 10.0 45 03/31/18 19:43 96 Venturi Mask 12.0 50 03/31/18 19:43 Venturi Mask 12.0 50 03/31/18 19:42 103 31 98 Venturi Mask 12.0 50 03/31/18 19:30 101 25 88/47 (61) 98 03/31/18 19:00 94 18 89/49 (62) 98 03/31/18 18:30 106 18 92/43 (59) 98 03/31/18 18:30 92/43 03/31/18 18:00 102 24 85/38 (54) 98 03/31/18 17:30 112 25 80/42 (55) 92 03/31/18 17:00 115 32 112/98 (103) 92 03/31/18 16:30 97.6 115 32 94/52 (66) 94 03/31/18 16:09 134 03/31/18 16:00 139 30 114/88 (97) 92 03/31/18 16:00 137 03/31/18 16:00 Venturi Mask Venturi Mask 03/31/18 15:30 141 34 90/66 (74) 90 03/31/18 15:00 139 30 98/66 (77) 93 03/31/18 14:30 138 38 104/61 (75) 100 03/31/18 14:23 123 28 100 Venturi Mask 14.0 55 03/31/18 14:12 128 24 99 Venturi Mask 14.0 55 03/31/18 14:00 128 31 106/76 (86) 100 03/31/18 13:30 130 32 95/65 (75) 100 03/31/18 13:00 129 32 109/71 (84) 100 03/31/18 12:30 137 36 107/90 (96) 95 03/31/18 12:00 117 03/31/18 12:00 Venturi Mask Venturi Mask 03/31/18 12:00 98.0 136 32 102/56 (71) 95 03/31/18 11:30 114 32 112/71 (85) 100 03/31/18 11:00 117 32 112/72 (85) 100 03/31/18 10:30 133 36 111/71 (84) 100 Intake and Output 03/31/18 04/01/18 19:00 07:00 Intake Total 299.94 ml 233.28 ml Output Total 810 ml 470 ml Balance -510.06 ml -236.72 ml IV Total 259.94 ml 133.28 ml Tube Feeding 40 ml 100 ml Output Urine Total 710 ml 470 ml Stool Total 100 ml Laboratory Tests Test 04/01/18 04:45 White Blood Count 14.4 K/UL (4.8-10.8) #H Red Blood Count 2.60 M/UL (4.20-5.40) L Hemoglobin 8.1 G/DL (12.0-16.0) L Hematocrit 25.0 % (37.0-47.0) L Mean Corpuscular Volume 96 FL (80-99) Mean Corpuscular Hemoglobin 31.2 PG (27.0-31.0) H Mean Corpuscular Hemoglobin Concent 32.5 G/DL (32.0-36.0) Red Cell Distribution Width 15.9 % (11.6-14.8) H Platelet Count 341 K/UL (150-450) Mean Platelet Volume 4.3 FL (6.5-10.1) L Neutrophils (%) (Auto) 83.5 % (45.0-75.0) H Lymphocytes (%) (Auto) 8.4 % (20.0-45.0) L Monocytes (%) (Auto) 7.1 % (1.0-10.0) Eosinophils (%) (Auto) 0.2 % (0.0-3.0) Basophils (%) (Auto) 0.9 % (0.0-2.0) Erythrocyte Sedimentation Rate 90 MM/HR (0-30) H Sodium Level 137 MMOL/L (136-145) Potassium Level 4.2 MMOL/L (3.5-5.1) Chloride Level 104 MMOL/L (98-107) Carbon Dioxide Level 27 MMOL/L (21-32) Anion Gap 6 mmol/L (5-15) Blood Urea Nitrogen 9 mg/dL (7-18) Creatinine 0.6 MG/DL (0.55-1.30) Estimat Glomerular Filtration Rate mL/min (>60) Glucose Level 104 MG/DL (74-106) Calcium Level 7.9 MG/DL (8.5-10.1) L Phosphorus Level 2.9 MG/DL (2.5-4.9) Magnesium Level 1.6 MG/DL (1.8-2.4) L Total Bilirubin 0.5 MG/DL (0.2-1.0) Aspartate Amino Transf (AST/SGOT) 30 U/L (15-37) Alanine Aminotransferase (ALT/SGPT) 11 U/L (12-78) L Alkaline Phosphatase 97 U/L (46-116) C-Reactive Protein, Quantitative 8.2 mg/dL (0.00-0.90) H Total Protein 4.8 G/DL (6.4-8.2) L Albumin 1.2 G/DL (3.4-5.0) L Globulin 3.6 g/dL Albumin/Globulin Ratio 0.3 (1.0-2.7) L Microbiology Date/Time Source Procedure Growth Status 03/29/18 12:05 Blood Blood Culture - Preliminary Staphylococcus Sp Coag Neg Resulted 03/29/18 12:00 Blood Blood Culture - Preliminary NO GROWTH AFTER 48 HOURS Resulted 03/29/18 14:00 Sputum Induced Gram Stain - Final Complete 03/29/18 14:00 Sputum Culture - Final Staphylococcus Aureus - Mrsa Pseudomonas Aeruginosa Leda Albicans Complete 03/29/18 14:00 Stool Clostridium difficile Toxin Assay - Final Complete 03/29/18 12:10 Urine,Clean Catch Urine Culture - Preliminary Leda Albicans Resulted Objective HEAD AND NECK: No JVD. LUNGS: Coarse rhonchi bilaterally. CARDIOVASCULAR: Irregular tachy S1 and S2 with no gallop. ABDOMEN: Status post colostomy. GT in place EXTREMITIES: No pitting edema Fredrick Burk MD Apr 01, 2018 10:11
--- NOTE | 2018-04-01 10:20 | Infectious Diseases Prog Note ---
Assessment/Plan Assessment/Plan Assessment/Plan Sepsis, resolved 2ry to UTI c/w bacteremia and prob early PNA -u/a wbc tntc, nit neg, luek +3; ucx >100k PsA (R cipro/levo, otherwise S), E. fecalis (S Amp, vanco); repeat u/a 03/29 wbc 30-40, nit eng, leuk +3; ucx yeast so far -03/06 Bcx 06/19 P.mirabiis (R cipro, I Levo; otherwise S), 03/21 MRSE ( contaminant); 03/07 Neg; 03/29 Bcx NTD Probable Pneum : -03/31 CXR: Pulmonary edema. Marginal improvement since the last occasion -03/29 CXR: . Persistent prominent interstitial markings, suggesting pulmonary vascular congestion, interstitial edema, or interstitial pneumonitis, not significantly changed. Subsegmental atelectasis versus infiltrates in bilateral lung bases. Possible small pleural effusions. -CXR: Subtle patchy opacities in the right upper lung raising question for developing pneumonia. Clinical correlation/follow-up recommended. -influenza sc neg -sp cx MRSA, C. albicans (Colonizer); 03/29 sp cx MRSA, GNB (prob colonizers) 03/19/17 - CT C/A/P - Bilateral basilar pneumonia versus atelectasis. Small to moderate left pleural effusion and a small right pleural effusion noted. 03/19/18 UCx - Yeast 03/23/18 CXR - B/L consolidation R>L 03/22/09 SpCx - MRSA, P.a. and NF Low grade fever, SP Leukocytosis -recurrent FTT HTN Afib dysphagia HLD Dementia contractures Plan: -D/c flagyl #02/26, continue IV Vanco d# -20 -03/31 SP Cefepime #27 -03/13 SP IV Vancomycin #7 -03/06 SP Meropenem x1 -Monitor CBC/CMP, temperatures -aspiration precautions -CBC, CMP am Subjective Allergies: Coded Allergies: No Known Allergies (Unverified , 03/06/18) Subjective afebrile leukocytosis recurrent off pressors now repeat Bcx NTD Objective Vital Signs Last 24 Hour Vital Signs Date Time Temp Pulse Resp B/P (MAP) Pulse Ox O2 Delivery O2 Flow Rate FiO2 04/01/18 09:30 93 33 82/44 (57) 91 04/01/18 09:00 99.6 99 37 82/44 (57) 91 04/01/18 08:48 99.6 04/01/18 08:19 105 04/01/18 08:00 Venturi Mask 04/01/18 08:00 81 04/01/18 08:00 100.0 103 36 97/43 (61) 94 04/01/18 07:42 103 26 99 Venturi Mask 14.0 55 04/01/18 07:37 Venturi Mask 14.0 55 04/01/18 07:37 93 Venturi Mask 14.0 55 04/01/18 07:37 95 26 94 Venturi Mask 14.0 55 04/01/18 07:30 106 33 82/49 (60) 92 04/01/18 07:00 103 27 105/58 (74) 92 04/01/18 06:30 105 27 101/58 (72) 92 04/01/18 06:00 104 27 91/58 (69) 92 04/01/18 05:30 97 27 97/45 (62) 92 04/01/18 05:00 97 35 108/92 (97) 92 04/01/18 04:00 Venturi Mask 04/01/18 04:00 96 04/01/18 04:00 99.0 102 35 86/48 (61) 92 04/01/18 03:30 103 35 86/48 (61) 92 04/01/18 03:00 103 35 96/53 (67) 92 04/01/18 02:30 104 35 89/59 (69) 91 04/01/18 02:03 109 32 96 Venturi Mask 10.0 45 04/01/18 02:00 103 35 94/56 (69) 93 04/01/18 01:41 109 26 92 Venturi Mask 10.0 45 04/01/18 01:30 103 35 101/67 (78) 94 04/01/18 01:00 104 35 105/59 (74) 94 04/01/18 00:30 26 90/52 (65) 94 04/01/18 00:00 Venturi Mask 04/01/18 00:00 99.2 105 26 99/61 (74) 94 04/01/18 00:00 100 03/31/18 23:30 105 24 111/60 (77) 90 03/31/18 23:00 103 24 116/72 (87) 94 03/31/18 22:30 102 24 107/51 (69) 94 03/31/18 22:00 99 24 90/37 (54) 94 03/31/18 21:30 100 24 79/59 (66) 94 03/31/18 21:00 100 26 92/41 (58) 94 03/31/18 20:30 102 26 82/43 (56) 96 03/31/18 20:22 107 30 Venturi Mask 10.0 45 03/31/18 20:00 99.0 102 28 94/39 (57) 96 03/31/18 20:00 Venturi Mask Venturi Mask 03/31/18 20:00 107 30 98 Venturi Mask 10.0 45 03/31/18 19:43 96 Venturi Mask 12.0 50 03/31/18 19:43 Venturi Mask 12.0 50 03/31/18 19:42 103 31 98 Venturi Mask 12.0 50 03/31/18 19:30 101 25 88/47 (61) 98 03/31/18 19:00 94 18 89/49 (62) 98 03/31/18 18:30 106 18 92/43 (59) 98 03/31/18 18:30 92/43 03/31/18 18:00 102 24 85/38 (54) 98 03/31/18 17:30 112 25 80/42 (55) 92 03/31/18 17:00 115 32 112/98 (103) 92 03/31/18 16:30 97.6 115 32 94/52 (66) 94 03/31/18 16:09 134 03/31/18 16:00 139 30 114/88 (97) 92 03/31/18 16:00 137 03/31/18 16:00 Venturi Mask Venturi Mask 03/31/18 15:30 141 34 90/66 (74) 90 03/31/18 15:00 139 30 98/66 (77) 93 03/31/18 14:30 138 38 104/61 (75) 100 03/31/18 14:23 123 28 100 Venturi Mask 14.0 55 03/31/18 14:12 128 24 99 Venturi Mask 14.0 55 03/31/18 14:00 128 31 106/76 (86) 100 03/31/18 13:30 130 32 95/65 (75) 100 03/31/18 13:00 129 32 109/71 (84) 100 03/31/18 12:30 137 36 107/90 (96) 95 03/31/18 12:00 117 03/31/18 12:00 Venturi Mask Venturi Mask 03/31/18 12:00 98.0 136 32 102/56 (71) 95 03/31/18 11:30 114 32 112/71 (85) 100 03/31/18 11:00 117 32 112/72 (85) 100 03/31/18 10:30 133 36 111/71 (84) 100 Height (Feet): 5 Height (Inches): 3.00 Weight (Pounds): 159 Objective General Appearance: no apparent distress, alert, GCS 15, non-toxic, other - frail, elderly, chronically ill, contracted, non-verbal, Chronically Ill HEENT: normocephalic, atraumatic, bilateral eye normal inspection, bilateral eye PERRL Respiratory: chest non-tender, lungs clear, normal breath sounds, no respiratory distress, no retraction, no accessory muscle use, speaking full sentences Cardiovascular : no edema, tachycardia, systolic murmur, irregularly irregular Gastrointestinal: normal bowel sounds, non tender, soft, non-distended, no guarding, no rebound, other - colostomy bag in place. Musculoskeletal: back normal, gait/station normal, normal range of motion, non- tender Neurologic: alert, other - non-focal. Contracted, non-verbal Skin: no rash, warm/dry, well hydrated, other - Multiple DU Microbiology Date/Time Source Procedure Growth Status 03/29/18 12:05 Blood Blood Culture - Preliminary Staphylococcus Sp Coag Neg Resulted 03/29/18 12:00 Blood Blood Culture - Preliminary NO GROWTH AFTER 48 HOURS Resulted 03/29/18 14:00 Sputum Induced Gram Stain - Final Complete 03/29/18 14:00 Sputum Culture - Final Staphylococcus Aureus - Mrsa Pseudomonas Aeruginosa Leda Albicans Complete 03/29/18 14:00 Stool Clostridium difficile Toxin Assay - Final Complete 03/29/18 12:10 Urine,Clean Catch Urine Culture - Preliminary Leda Albicans Resulted Laboratory Tests Test 04/01/18 04:45 White Blood Count 14.4 K/UL (4.8-10.8) #H Red Blood Count 2.60 M/UL (4.20-5.40) L Hemoglobin 8.1 G/DL (12.0-16.0) L Hematocrit 25.0 % (37.0-47.0) L Mean Corpuscular Volume 96 FL (80-99) Mean Corpuscular Hemoglobin 31.2 PG (27.0-31.0) H Mean Corpuscular Hemoglobin Concent 32.5 G/DL (32.0-36.0) Red Cell Distribution Width 15.9 % (11.6-14.8) H Platelet Count 341 K/UL (150-450) Mean Platelet Volume 4.3 FL (6.5-10.1) L Neutrophils (%) (Auto) 83.5 % (45.0-75.0) H Lymphocytes (%) (Auto) 8.4 % (20.0-45.0) L Monocytes (%) (Auto) 7.1 % (1.0-10.0) Eosinophils (%) (Auto) 0.2 % (0.0-3.0) Basophils (%) (Auto) 0.9 % (0.0-2.0) Erythrocyte Sedimentation Rate 90 MM/HR (0-30) H Sodium Level 137 MMOL/L (136-145) Potassium Level 4.2 MMOL/L (3.5-5.1) Chloride Level 104 MMOL/L (98-107) Carbon Dioxide Level 27 MMOL/L (21-32) Anion Gap 6 mmol/L (5-15) Blood Urea Nitrogen 9 mg/dL (7-18) Creatinine 0.6 MG/DL (0.55-1.30) Estimat Glomerular Filtration Rate mL/min (>60) Glucose Level 104 MG/DL (74-106) Calcium Level 7.9 MG/DL (8.5-10.1) L Phosphorus Level 2.9 MG/DL (2.5-4.9) Magnesium Level 1.6 MG/DL (1.8-2.4) L Total Bilirubin 0.5 MG/DL (0.2-1.0) Aspartate Amino Transf (AST/SGOT) 30 U/L (15-37) Alanine Aminotransferase (ALT/SGPT) 11 U/L (12-78) L Alkaline Phosphatase 97 U/L (46-116) C-Reactive Protein, Quantitative 8.2 mg/dL (0.00-0.90) H Total Protein 4.8 G/DL (6.4-8.2) L Albumin 1.2 G/DL (3.4-5.0) L Globulin 3.6 g/dL Albumin/Globulin Ratio 0.3 (1.0-2.7) L Current Medications Medications (Trade) Dose Ordered Sig/Cele Route PRN Reason Start Time Stop Time Status Last Admin Dose Admin Acetaminophen (Tylenol) 650 mg Q4H PRN PEG fever (temp>100.5F) 03/26/18 16:00 04/17/18 05:44 04/01/18 08:18 Acetylcysteine (Mucomyst) 200 mg Q6HRT HHN 03/23/18 19:00 04/22/18 00:59 04/01/18 07:35 Amiodarone HCl 900 mg/Dextrose 500 ml @ 16.66 mls/ hr Q24H IV 03/31/18 20:30 04/01/18 20:29 03/31/18 20:52 Chlorhexidine Gluconate (Sahra-Hex 2%) 1 applic DAILY@2000 TOPIC 03/23/18 20:00 04/13/18 19:59 03/31/18 20:21 Digoxin (Lanoxin) 0.125 mg DAILY IVP 03/30/18 09:00 04/29/18 08:59 04/01/18 08:19 Furosemide (Lasix) 20 mg ONCE IV 04/01/18 09:46 04/01/18 10:46 Ipratropium [place] (Atrovent) 500 mcg Q4H PRN HHN Shortness of Breath 03/28/18 20:30 04/02/18 20:29 04/01/18 07:35 Levalbuterol HCl (Xopenex) 1.25 mg Q4H PRN HHN Shortness of Breath 03/28/18 20:30 04/02/18 20:29 04/01/18 07:35 Metoclopramide HCl (Reglan) 5 mg EVERY 8 HOURS NG 03/31/18 14:00 04/30/18 13:59 04/01/18 05:42 Metronidazole (Flagyl) 500 mg Q8HR GT 03/27/18 14:00 04/03/18 13:59 04/01/18 05:42 Norepinephrine Bitartrate 4 mg/ Dextrose 250 ml @ 0 mls/hr Q24H IV 03/23/18 18:30 04/22/18 18:29 03/30/18 10:01 Olanzapine (ZyPREXA) 2.5 mg Q6H PRN GT agitation 03/26/18 16:00 04/07/18 15:59 Pantoprazole (Protonix) 40 mg EVERY 12 HOURS IVP 03/27/18 21:00 04/26/18 20:59 04/01/18 08:18 Polyethylene Glycol (Miralax) 17 gm DAILYPRN PRN GT Constipation 03/26/18 16:00 04/22/18 15:59 Tamsulosin HCl (Flomax) 0.4 mg BEDTIME ORAL 03/23/18 21:00 04/05/18 20:59 03/31/18 20:39 Vancomycin HCl (Vanco rx to dose) 1 ea DAILY PRN MISC Per rx protocol 03/24/18 09:00 04/14/18 10:59 Vancomycin HCl 500 mg/Dextrose 110 ml @ 110 mls/hr Q12HR@0800,2000 IVPB 03/30/18 08:00 04/04/18 07:59 04/01/18 08:17 Sussy Daniel M.D. Apr 01, 2018 10:20
--- NOTE | 2018-04-01 14:51 | GI Progress Note ---
Assessment/Plan Problems: (1) Encounter for PEG (percutaneous endoscopic gastrostomy) ICD Codes: Z43.1 - Encounter for attention to gastrostomy SNOMED: 070156573, 726787251 (2) At high risk for aspiration ICD Codes: Z91.89 - Other specified personal risk factors, not elsewhere classified SNOMED: 775091919 (3) Protein-calorie malnutrition, severe ICD Codes: E43 - Unspecified severe protein-calorie malnutrition SNOMED: 774727390 (4) Dysphasia ICD Codes: R47.02 - Dysphasia SNOMED: 14398076 Status: stable Status Narrative Discussed with Dr. Velez. Assessment/Plan s/p GT placement GTF and care, reported patient is not tolerating her G-tube feedings Add low-dose Reglan 5 mg ATC, restart feedings at low rate then advance to goal fu labs Follow-up pulmonary recommendations The patient was seen and examined at bedside and all new and available data was reviewed in the patients chart. I agree with the above findings, impression and plan. (Patient seen earlier today. Signature stamp does not reflect patient encounter time.). - Ernesto Velez MD Subjective Subjective Limited Objective Last 24 Hour Vital Signs Date Time Temp Pulse Resp B/P (MAP) Pulse Ox O2 Delivery O2 Flow Rate FiO2 04/01/18 14:30 82 23 90/40 (57) 96 04/01/18 14:00 82 23 91/38 (55) 97 04/01/18 13:30 76 32 140/57 (84) 98 04/01/18 13:20 85 26 100 Venturi Mask 14.0 55 04/01/18 13:02 83 24 95 Venturi Mask 14.0 55 04/01/18 13:00 82 34 86/51 (63) 100 04/01/18 12:30 86 33 86/44 (58) 95 04/01/18 12:00 Venturi Mask 04/01/18 12:00 83 04/01/18 12:00 99.0 81 31 92/45 (61) 92 04/01/18 11:30 81 26 98/63 (75) 94 04/01/18 11:00 93 32 85/42 (56) 95 04/01/18 10:30 85 28 97/46 (63) 94 04/01/18 10:00 94 29 88/37 (54) 92 04/01/18 09:30 93 33 82/44 (57) 91 04/01/18 09:00 99.6 99 37 82/44 (57) 91 04/01/18 08:48 99.6 04/01/18 08:19 105 04/01/18 08:00 Venturi Mask 04/01/18 08:00 81 04/01/18 08:00 100.0 103 36 97/43 (61) 94 04/01/18 07:42 103 26 99 Venturi Mask 14.0 55 04/01/18 07:37 Venturi Mask 14.0 55 04/01/18 07:37 93 Venturi Mask 14.0 55 04/01/18 07:37 95 26 94 Venturi Mask 14.0 55 04/01/18 07:30 106 33 82/49 (60) 92 04/01/18 07:00 103 27 105/58 (74) 92 04/01/18 06:30 105 27 101/58 (72) 92 04/01/18 06:00 104 27 91/58 (69) 92 04/01/18 05:30 97 27 97/45 (62) 92 04/01/18 05:00 97 35 108/92 (97) 92 04/01/18 04:00 Venturi Mask 04/01/18 04:00 96 04/01/18 04:00 99.0 102 35 86/48 (61) 92 04/01/18 03:30 103 35 86/48 (61) 92 04/01/18 03:00 103 35 96/53 (67) 92 04/01/18 02:30 104 35 89/59 (69) 91 04/01/18 02:03 109 32 96 Venturi Mask 10.0 45 04/01/18 02:00 103 35 94/56 (69) 93 04/01/18 01:41 109 26 92 Venturi Mask 10.0 45 04/01/18 01:30 103 35 101/67 (78) 94 04/01/18 01:00 104 35 105/59 (74) 94 04/01/18 00:30 26 90/52 (65) 94 04/01/18 00:00 Venturi Mask 04/01/18 00:00 99.2 105 26 99/61 (74) 94 04/01/18 00:00 100 03/31/18 23:30 105 24 111/60 (77) 90 03/31/18 23:00 103 24 116/72 (87) 94 03/31/18 22:30 102 24 107/51 (69) 94 03/31/18 22:00 99 24 90/37 (54) 94 03/31/18 21:30 100 24 79/59 (66) 94 03/31/18 21:00 100 26 92/41 (58) 94 03/31/18 20:30 102 26 82/43 (56) 96 03/31/18 20:22 107 30 Venturi Mask 10.0 45 03/31/18 20:00 99.0 102 28 94/39 (57) 96 03/31/18 20:00 Venturi Mask Venturi Mask 03/31/18 20:00 107 30 98 Venturi Mask 10.0 45 03/31/18 19:43 96 Venturi Mask 12.0 50 03/31/18 19:43 Venturi Mask 12.0 50 03/31/18 19:42 103 31 98 Venturi Mask 12.0 50 03/31/18 19:30 101 25 88/47 (61) 98 03/31/18 19:00 94 18 89/49 (62) 98 03/31/18 18:30 106 18 92/43 (59) 98 03/31/18 18:30 92/43 03/31/18 18:00 102 24 85/38 (54) 98 03/31/18 17:30 112 25 80/42 (55) 92 03/31/18 17:00 115 32 112/98 (103) 92 03/31/18 16:30 97.6 115 32 94/52 (66) 94 03/31/18 16:09 134 03/31/18 16:00 139 30 114/88 (97) 92 03/31/18 16:00 137 03/31/18 16:00 Venturi Mask Venturi Mask 03/31/18 15:30 141 34 90/66 (74) 90 03/31/18 15:00 139 30 98/66 (77) 93 Intake and Output 03/31/18 04/01/18 19:00 07:00 Intake Total 299.94 ml 249.94 ml Output Total 810 ml 470 ml Balance -510.06 ml -220.06 ml IV Total 259.94 ml 149.94 ml Tube Feeding 40 ml 100 ml Output Urine Total 710 ml 470 ml Stool Total 100 ml Laboratory Tests Test 04/01/18 04:45 White Blood Count 14.4 K/UL (4.8-10.8) #H Red Blood Count 2.60 M/UL (4.20-5.40) L Hemoglobin 8.1 G/DL (12.0-16.0) L Hematocrit 25.0 % (37.0-47.0) L Mean Corpuscular Volume 96 FL (80-99) Mean Corpuscular Hemoglobin 31.2 PG (27.0-31.0) H Mean Corpuscular Hemoglobin Concent 32.5 G/DL (32.0-36.0) Red Cell Distribution Width 15.9 % (11.6-14.8) H Platelet Count 341 K/UL (150-450) Mean Platelet Volume 4.3 FL (6.5-10.1) L Neutrophils (%) (Auto) 83.5 % (45.0-75.0) H Lymphocytes (%) (Auto) 8.4 % (20.0-45.0) L Monocytes (%) (Auto) 7.1 % (1.0-10.0) Eosinophils (%) (Auto) 0.2 % (0.0-3.0) Basophils (%) (Auto) 0.9 % (0.0-2.0) Erythrocyte Sedimentation Rate 90 MM/HR (0-30) H Sodium Level 137 MMOL/L (136-145) Potassium Level 4.2 MMOL/L (3.5-5.1) Chloride Level 104 MMOL/L (98-107) Carbon Dioxide Level 27 MMOL/L (21-32) Anion Gap 6 mmol/L (5-15) Blood Urea Nitrogen 9 mg/dL (7-18) Creatinine 0.6 MG/DL (0.55-1.30) Estimat Glomerular Filtration Rate mL/min (>60) Glucose Level 104 MG/DL (74-106) Calcium Level 7.9 MG/DL (8.5-10.1) L Phosphorus Level 2.9 MG/DL (2.5-4.9) Magnesium Level 1.6 MG/DL (1.8-2.4) L Total Bilirubin 0.5 MG/DL (0.2-1.0) Aspartate Amino Transf (AST/SGOT) 30 U/L (15-37) Alanine Aminotransferase (ALT/SGPT) 11 U/L (12-78) L Alkaline Phosphatase 97 U/L (46-116) C-Reactive Protein, Quantitative 8.2 mg/dL (0.00-0.90) H Total Protein 4.8 G/DL (6.4-8.2) L Albumin 1.2 G/DL (3.4-5.0) L Globulin 3.6 g/dL Albumin/Globulin Ratio 0.3 (1.0-2.7) L Height (Feet): 5 Height (Inches): 3.00 Weight (Pounds): 159 General Appearance: WD/WN, no apparent distress, alert, thin Cardiovascular: normal rate Respiratory/Chest: normal breath sounds, no respiratory distress, other - mechanical vent Abdominal Exam: normal bowel sounds, non tender, soft, GT site - c/d/i Extremities: non-tender Thaddeus Galeana NP Apr 01, 2018 14:51
--- NOTE | 2018-04-01 16:19 | General Surgery Progress Note ---
Surgery Progress Note Subjective Procedure Performed left internal jugular central venous catheter insertion Additional Comments still in ICU. ill appearing. unchanged. labs noted. Objective Last 24 Hour Vital Signs Date Time Temp Pulse Resp B/P (MAP) Pulse Ox O2 Delivery O2 Flow Rate FiO2 04/01/18 15:30 92 25 91/44 (60) 95 04/01/18 15:00 88 29 82/39 (53) 96 04/01/18 14:30 82 23 90/40 (57) 96 04/01/18 14:00 82 23 91/38 (55) 97 04/01/18 13:30 76 32 140/57 (84) 98 04/01/18 13:20 85 26 100 Venturi Mask 14.0 55 04/01/18 13:02 83 24 95 Venturi Mask 14.0 55 04/01/18 13:00 82 34 86/51 (63) 100 04/01/18 12:30 86 33 86/44 (58) 95 04/01/18 12:00 Venturi Mask 04/01/18 12:00 83 04/01/18 12:00 99.0 81 31 92/45 (61) 92 04/01/18 11:30 81 26 98/63 (75) 94 04/01/18 11:00 93 32 85/42 (56) 95 04/01/18 10:30 85 28 97/46 (63) 94 04/01/18 10:00 94 29 88/37 (54) 92 04/01/18 09:30 93 33 82/44 (57) 91 04/01/18 09:00 99.6 99 37 82/44 (57) 91 04/01/18 08:48 99.6 04/01/18 08:19 105 04/01/18 08:00 Venturi Mask 04/01/18 08:00 81 04/01/18 08:00 100.0 103 36 97/43 (61) 94 04/01/18 07:42 103 26 99 Venturi Mask 14.0 55 04/01/18 07:37 Venturi Mask 14.0 55 04/01/18 07:37 93 Venturi Mask 14.0 55 04/01/18 07:37 95 26 94 Venturi Mask 14.0 55 04/01/18 07:30 106 33 82/49 (60) 92 04/01/18 07:00 103 27 105/58 (74) 92 04/01/18 06:30 105 27 101/58 (72) 92 04/01/18 06:00 104 27 91/58 (69) 92 04/01/18 05:30 97 27 97/45 (62) 92 04/01/18 05:00 97 35 108/92 (97) 92 04/01/18 04:00 Venturi Mask 04/01/18 04:00 96 04/01/18 04:00 99.0 102 35 86/48 (61) 92 04/01/18 03:30 103 35 86/48 (61) 92 04/01/18 03:00 103 35 96/53 (67) 92 04/01/18 02:30 104 35 89/59 (69) 91 04/01/18 02:03 109 32 96 Venturi Mask 10.0 45 04/01/18 02:00 103 35 94/56 (69) 93 04/01/18 01:41 109 26 92 Venturi Mask 10.0 45 04/01/18 01:30 103 35 101/67 (78) 94 04/01/18 01:00 104 35 105/59 (74) 94 04/01/18 00:30 26 90/52 (65) 94 04/01/18 00:00 Venturi Mask 04/01/18 00:00 99.2 105 26 99/61 (74) 94 04/01/18 00:00 100 03/31/18 23:30 105 24 111/60 (77) 90 03/31/18 23:00 103 24 116/72 (87) 94 03/31/18 22:30 102 24 107/51 (69) 94 03/31/18 22:00 99 24 90/37 (54) 94 03/31/18 21:30 100 24 79/59 (66) 94 03/31/18 21:00 100 26 92/41 (58) 94 03/31/18 20:30 102 26 82/43 (56) 96 03/31/18 20:22 107 30 Venturi Mask 10.0 45 03/31/18 20:00 99.0 102 28 94/39 (57) 96 03/31/18 20:00 Venturi Mask Venturi Mask 03/31/18 20:00 107 30 98 Venturi Mask 10.0 45 03/31/18 19:43 96 Venturi Mask 12.0 50 03/31/18 19:43 Venturi Mask 12.0 50 03/31/18 19:42 103 31 98 Venturi Mask 12.0 50 03/31/18 19:30 101 25 88/47 (61) 98 03/31/18 19:00 94 18 89/49 (62) 98 03/31/18 18:30 106 18 92/43 (59) 98 03/31/18 18:30 92/43 03/31/18 18:00 102 24 85/38 (54) 98 03/31/18 17:30 112 25 80/42 (55) 92 03/31/18 17:00 115 32 112/98 (103) 92 03/31/18 16:30 97.6 115 32 94/52 (66) 94 I&O Intake and Output 03/31/18 04/01/18 19:00 07:00 Intake Total 299.94 ml 249.94 ml Output Total 810 ml 470 ml Balance -510.06 ml -220.06 ml IV Total 259.94 ml 149.94 ml Tube Feeding 40 ml 100 ml Output Urine Total 710 ml 470 ml Stool Total 100 ml Dressing: other Wound: other Drains: other Cardiovascular: RSR Respiratory: decreased breath sounds Abdomen: soft, non-distended, decreased bowel sounds Extremities: other Laboratory Tests Test 04/01/18 04:45 White Blood Count 14.4 K/UL (4.8-10.8) #H Red Blood Count 2.60 M/UL (4.20-5.40) L Hemoglobin 8.1 G/DL (12.0-16.0) L Hematocrit 25.0 % (37.0-47.0) L Mean Corpuscular Volume 96 FL (80-99) Mean Corpuscular Hemoglobin 31.2 PG (27.0-31.0) H Mean Corpuscular Hemoglobin Concent 32.5 G/DL (32.0-36.0) Red Cell Distribution Width 15.9 % (11.6-14.8) H Platelet Count 341 K/UL (150-450) Mean Platelet Volume 4.3 FL (6.5-10.1) L Neutrophils (%) (Auto) 83.5 % (45.0-75.0) H Lymphocytes (%) (Auto) 8.4 % (20.0-45.0) L Monocytes (%) (Auto) 7.1 % (1.0-10.0) Eosinophils (%) (Auto) 0.2 % (0.0-3.0) Basophils (%) (Auto) 0.9 % (0.0-2.0) Erythrocyte Sedimentation Rate 90 MM/HR (0-30) H Sodium Level 137 MMOL/L (136-145) Potassium Level 4.2 MMOL/L (3.5-5.1) Chloride Level 104 MMOL/L (98-107) Carbon Dioxide Level 27 MMOL/L (21-32) Anion Gap 6 mmol/L (5-15) Blood Urea Nitrogen 9 mg/dL (7-18) Creatinine 0.6 MG/DL (0.55-1.30) Estimat Glomerular Filtration Rate mL/min (>60) Glucose Level 104 MG/DL (74-106) Calcium Level 7.9 MG/DL (8.5-10.1) L Phosphorus Level 2.9 MG/DL (2.5-4.9) Magnesium Level 1.6 MG/DL (1.8-2.4) L Total Bilirubin 0.5 MG/DL (0.2-1.0) Aspartate Amino Transf (AST/SGOT) 30 U/L (15-37) Alanine Aminotransferase (ALT/SGPT) 11 U/L (12-78) L Alkaline Phosphatase 97 U/L (46-116) C-Reactive Protein, Quantitative 8.2 mg/dL (0.00-0.90) H Total Protein 4.8 G/DL (6.4-8.2) L Albumin 1.2 G/DL (3.4-5.0) L Globulin 3.6 g/dL Albumin/Globulin Ratio 0.3 (1.0-2.7) L Plan Problems: (1) Sacral decubitus ulcer, stage IV Assessment & Plan: Fungal rash R and L axillae ,R and L chest and back. Stage IV Full thickness pressure injury to R elbow (L)2.2cm x (W03cm x (D)0.7cm ,undermining 9-3 by 1.8cm @9o'clock.Base of wound beefy red with trace slough, bone is visible.Wound is malodorous with small amt brown exudate. Non- blanchable erythema periwound. Stage IV Full thickness pressure injury to sacrum (L)8cm x (W)10.6cm x (D)2.7cm , Undermining 7-4 by 3.5cm @12o'clock.Wound is malodorous with small amt sanguineous exudate.Wound bed beefy red with an area of soft necrosis at 8-12 at base of wound and bone is visible at coccyx.Edges non-adherent .Non- blanching erythema with moisture denudement periwound and entire buttocks extending into perineum. Has had prior debridement as noted by exam Contractures bilat lower ext with large senile purpura noted to lateral R tibia ,Posterior and nereyda L tibia. Full thickness pressure injury noted to L heel (L)4cm x (W)3.5cm,wound bed viable ,(+)maceration along edges with area of soft necrosis periwound Pt's skin turgor is poor .Scattered senile purpuras noted to both upper and both lower ext Scattered areas of slough noted at base,wound bed is otherwise pink and granular with undermining. Small area of slough noted along borders at approx 4-5 o'clock. Periwound intact without erythema or induration .NO odor noted from wound .Minimal serosanguineous exudate noted to gauze packing when removed from wound. (L)9.6cm x (W)10cm x (D)1.8cm,undermining 8-3by 2.5cm @12o' clock.Scattered petechia L scapula with dry, peeling Skin. Full thickness pressure injury to R elbow with approx 40% fibrinous slough with undermining (L) 1.5cm x (W)1.5cm x (D)0.4cm ,undermining 9-3 by 2.5cm @12o'clock.Large petechia later/posterior R knee with small tear but is dry. Resolving pressure injury to L heel wound bed epithelialized with #2 small granular areas within wound bed .No odor or exudate noted.Periwound is pink but boggy. Resolving pressure injury L tibia trace biofim noted to wound bed but is otherwise pink and granular(L)2cm x (W)1cm. All wound prevention protocols are being observed .Pt has an air fluidized mattress on her bed and is being positioned with pillows in bed Tx.Plan: Cleanse Sacral wound with Saline. Loosely pack with Kerlix impregnated with Therahoney (Attention to undermined areas).Apply Cavilon Skin Barrier Periwound.Cover with Optifoam drsg Daily and prn. Cleanse R elbow with Saline.Apply Therahoney .Apply Cavilon Skin Barrier periwound .Cover with Optifoam drsg Daily and prn. Apply Cavilon Skin Barrier to L heel .Cover with Optifoam drsg .Change every 3 days and prn. Cleanse wound L tibia with Saline.Apply Therahoney. Cover with Optifoam drsg every 3 days and prn. Apply Cavilon Skin Barrier wipe to posterior R knee .Cover with ABD and wrap with kerlix every 3 days and prn. Air fluidized mattress. Off-load heels with pillow. (2) Sepsis Assessment & Plan: lines placed wounds cleaned prior cxr reviewed. line in place cont with care will monitor Derick Ramsay Apr 01, 2018 16:19
--- NOTE | 2018-04-01 18:21 | Internal Med Progress Note ---
Subjective Date of Service: Apr 01, 2018 Physician Name Shankar Betts Attending Physician Davian Scott MD Current Medications Medications (Trade) Dose Ordered Sig/Cele Route PRN Reason Start Time Stop Time Status Last Admin Dose Admin Acetaminophen (Tylenol) 650 mg Q4H PRN PEG fever (temp>100.5F) 03/26/18 16:00 04/17/18 05:44 04/01/18 08:18 Acetylcysteine (Mucomyst) 200 mg Q6HRT HHN 03/23/18 19:00 04/22/18 00:59 04/01/18 13:01 Amiodarone HCl 900 mg/Dextrose 500 ml @ 16.66 mls/ hr Q24H IV 03/31/18 20:30 04/01/18 20:29 03/31/18 20:52 Chlorhexidine Gluconate (Sahra-Hex 2%) 1 applic DAILY@2000 TOPIC 03/23/18 20:00 04/13/18 19:59 03/31/18 20:21 Digoxin (Lanoxin) 0.125 mg DAILY IVP 03/30/18 09:00 04/29/18 08:59 04/01/18 08:19 Ipratropium [place] (Atrovent) 500 mcg Q4H PRN HHN Shortness of Breath 03/28/18 20:30 04/02/18 20:29 04/01/18 13:01 Levalbuterol HCl (Xopenex) 1.25 mg Q4H PRN HHN Shortness of Breath 03/28/18 20:30 04/02/18 20:29 04/01/18 13:01 Metoclopramide HCl (Reglan) 5 mg EVERY 8 HOURS NG 03/31/18 14:00 04/30/18 13:59 04/01/18 13:59 Norepinephrine Bitartrate 4 mg/ Dextrose 250 ml @ 0 mls/hr Q24H IV 03/23/18 18:30 04/22/18 18:29 03/30/18 10:01 Olanzapine (ZyPREXA) 2.5 mg Q6H PRN GT agitation 03/26/18 16:00 04/07/18 15:59 Pantoprazole (Protonix) 40 mg EVERY 12 HOURS IVP 03/27/18 21:00 04/26/18 20:59 04/01/18 08:18 Polyethylene Glycol (Miralax) 17 gm DAILYPRN PRN GT Constipation 03/26/18 16:00 04/22/18 15:59 Tamsulosin HCl (Flomax) 0.4 mg BEDTIME ORAL 03/23/18 21:00 04/05/18 20:59 03/31/18 20:39 Vancomycin HCl (Vanco rx to dose) 1 ea DAILY PRN MISC Per rx protocol 03/24/18 09:00 04/14/18 10:59 Vancomycin HCl 500 mg/Dextrose 110 ml @ 110 mls/hr Q12HR@0800,1999 IVPB 03/30/18 08:00 04/04/18 07:59 04/01/18 08:17 Allergies: Coded Allergies: No Known Allergies (Unverified , 03/06/18) ROS Limited/Unobtainable: Yes Subjective 87 YO F admitted with hematuria and gen weakness. Now pyelonephritis respiratory distress and sepsis. Cover for Int Med-Dr Scott. ICU. On levophed ; Tolerating venturi mask. Afib with RVR Objective Last Vital Signs Date Time Temp Pulse Resp B/P (MAP) Pulse Ox O2 Delivery O2 Flow Rate FiO2 04/01/18 18:00 86 22 98/36 (56) 99 04/01/18 16:00 98.7 04/01/18 16:00 Venturi Mask 04/01/18 13:20 14.0 55 Laboratory Tests Test 04/01/18 04:45 White Blood Count 14.4 K/UL (4.8-10.8) #H Red Blood Count 2.60 M/UL (4.20-5.40) L Hemoglobin 8.1 G/DL (12.0-16.0) L Hematocrit 25.0 % (37.0-47.0) L Mean Corpuscular Volume 96 FL (80-99) Mean Corpuscular Hemoglobin 31.2 PG (27.0-31.0) H Mean Corpuscular Hemoglobin Concent 32.5 G/DL (32.0-36.0) Red Cell Distribution Width 15.9 % (11.6-14.8) H Platelet Count 341 K/UL (150-450) Mean Platelet Volume 4.3 FL (6.5-10.1) L Neutrophils (%) (Auto) 83.5 % (45.0-75.0) H Lymphocytes (%) (Auto) 8.4 % (20.0-45.0) L Monocytes (%) (Auto) 7.1 % (1.0-10.0) Eosinophils (%) (Auto) 0.2 % (0.0-3.0) Basophils (%) (Auto) 0.9 % (0.0-2.0) Erythrocyte Sedimentation Rate 90 MM/HR (0-30) H Sodium Level 137 MMOL/L (136-145) Potassium Level 4.2 MMOL/L (3.5-5.1) Chloride Level 104 MMOL/L (98-107) Carbon Dioxide Level 27 MMOL/L (21-32) Anion Gap 6 mmol/L (5-15) Blood Urea Nitrogen 9 mg/dL (7-18) Creatinine 0.6 MG/DL (0.55-1.30) Estimat Glomerular Filtration Rate mL/min (>60) Glucose Level 104 MG/DL (74-106) Calcium Level 7.9 MG/DL (8.5-10.1) L Phosphorus Level 2.9 MG/DL (2.5-4.9) Magnesium Level 1.6 MG/DL (1.8-2.4) L Total Bilirubin 0.5 MG/DL (0.2-1.0) Aspartate Amino Transf (AST/SGOT) 30 U/L (15-37) Alanine Aminotransferase (ALT/SGPT) 11 U/L (12-78) L Alkaline Phosphatase 97 U/L (46-116) C-Reactive Protein, Quantitative 8.2 mg/dL (0.00-0.90) H Total Protein 4.8 G/DL (6.4-8.2) L Albumin 1.2 G/DL (3.4-5.0) L Globulin 3.6 g/dL Albumin/Globulin Ratio 0.3 (1.0-2.7) L Intake and Output 03/31/18 04/01/18 19:00 07:00 Intake Total 299.94 ml 249.94 ml Output Total 810 ml 470 ml Balance -510.06 ml -220.06 ml IV Total 259.94 ml 149.94 ml Tube Feeding 40 ml 100 ml Output Urine Total 710 ml 470 ml Stool Total 100 ml Objective PHYSICAL EXAMINATION: GENERAL: The patient is a well-developed and well-nourished white female, in no apparent distress. HEENT: Eyes, pupils are equal and responsive to light and accommodation. Extraocular movements are intact. NECK: Supple without lymphadenopathy. CHEST: venturi mask; crackles and rales at bases; Decreased breath sounds at bilateral bases. Otherwise, clear to auscultation without wheezes or rales. CARDIOVASCULAR: Tachycardic. Regular rate and rhythm. S1, S2 are normal without murmurs, rubs, or gallops. ABDOMEN: Soft, nontender, and nondistended. Positive bowel sounds. No evidence of hepatosplenomegaly. Currently, no rebound or guarding noted. EXTREMITIES: Negative for clubbing, cyanosis, or edema. RECTAL/GENITAL: Deferred. NEUROLOGIC: Cranial nerves II through XII are grossly intact without focal deficits. Assessment/Plan Problem List: (1) Pyelonephritis Assessment & Plan: Pseudamonas and strep. See ID note-Continue cefepime and vanco (2) Sepsis (3) HTN (hypertension) Assessment & Plan: Currently hypotensive (4) Hypercholesteremia (5) Sacral decubitus ulcer, stage IV Assessment & Plan: See surgery note-dr Ramsay (6) Urinary tract infection Assessment & Plan: pseudamonas; continue cefepime per ID (7) Pneumonia Assessment & Plan: New RLL. Previously MRSA. Continue vanco per ID (8) Atrial fibrillation with RVR Assessment & Plan: Continue digoxin and amiodrone per cardiology (9) Respiratory distress Assessment & Plan: On venturi mask Status: not improved Shankar Betts MD Apr 01, 2018 18:21
[2018-04-01] MEDS: Dyna-Hex 2% Top Sol 2oz TOPIC SCH (20:07)
[2018-04-01] MEDS: Amiodarone 900 MG in D5W 500ml 482 ML IV SCH (20:08)
[2018-04-01] MEDS ORDERED: Amiodarone 900 MG in D5W 500ml 482 ML IV SCH (20:30)
[2018-04-01] MEDS: Tamsulosin 0.4mg cap ORAL SCH (21:18)
[2018-04-02] VITALS (36 sets, daily range): BP systolic 87–116; BP diastolic 48–84
[2018-04-02] MEDS: Levalbuterol Inh UD 1.25mg/0.5ml HHN PRN ×2 (02:19→07:01)
[2018-04-02] MEDS: Acetylcysteine 20% Soln 4ml HHN SCH ×4 (02:19→20:12)
[2018-04-02] MEDS: Ipratropium 0.02% Inh Soln 2.5ml UD HHN PRN ×3 (02:19→20:12)
[2018-04-02 05:50] LABS: BASOPHILS % (AUTO) 0.6 % (0.0-2.0); EOSINOPHILS % (AUTO) 0.1 % (0.0-3.0); HEMOGLOBIN 8.6 G/DL (12.0-16.0); LYMPHOCYTES % (AUTO) 8.2 % (20.0-45.0); MEAN CORPUSCULAR VOLUME 96 FL (80-99); MONOCYTES % (AUTO) 9.2 % (1.0-10.0); PLATELET COUNT 324 K/UL (150-450); RED BLOOD COUNT 2.81 M/UL (4.20-5.40); RED CELL DISTRIBUTION WIDTH 15.4 % (11.6-14.8); WHITE BLOOD COUNT 13.5 K/UL (4.8-10.8)
[2018-04-02] MEDS: Metoclopramide 10mg/10ml Liq NG SCH (06:21)
[2018-04-02 06:44] LABS: ALANINE AMINOTRANSFERASE 11 U/L (12-78); ALBUMIN 1.3 G/DL (3.4-5.0); ALBUMIN/GLOBULIN RATIO 0.4 (1.0-2.7); ALKALINE PHOSPHATASE 95 U/L (46-116); ANION GAP 5 mmol/L (5-15); ASPARTATE AMINO TRANSFERASE 27 U/L (15-37); BILIRUBIN,TOTAL 0.3 MG/DL (0.2-1.0); BLOOD UREA NITROGEN 12 mg/dL (7-18); CALCIUM 8.1 MG/DL (8.5-10.1); CARBON DIOXIDE 29 MMOL/L (21-32); CHLORIDE 105 MMOL/L (98-107); CREATININE 0.6 MG/DL (0.55-1.30); SODIUM 139 MMOL/L (136-145)
[2018-04-02 07:17] LABS: PHOSPHORUS 2.8 MG/DL (2.5-4.9)
[2018-04-02] MEDS: Pantoprazole Inj IVP SCH ×2 (08:46→20:26)
[2018-04-02] MEDS: Digoxin 0.5mg/2ml Inj IVP SCH (08:47)
[2018-04-02] MEDS: Vancomycin 500mg/D5W 110ml IVPB SCH ×4 (08:47→20:26)
--- NOTE | 2018-04-02 10:56 | Diagnostic Imaging Report ---
Indication: Dyspnea Comparison: 03/31/2018 A single view chest radiograph was obtained. Findings: Interstitial edema and prominent vascularity demonstrated once again. There is a moderate left pleural effusion. Basilar parenchymal densities may be present especially on the left lung base. IMPRESSION: No change from the prior exam
--- NOTE | 2018-04-02 11:05 | Infectious Diseases Prog Note ---
Assessment/Plan Assessment/Plan Assessment/Plan Sepsis, resolved 2ry to UTI c/w bacteremia and prob early PNA -u/a wbc tntc, nit neg, luek +3; ucx >100k PsA (R cipro/levo, otherwise S), E. fecalis (S Amp, vanco); repeat u/a 03/29 wbc 30-40, nit eng, leuk +3; ucx yeast so far -03/06 Bcx 4/ P.mirabiis (R cipro, I Levo; otherwise S), 03/21 MRSE ( contaminant); 03/07 Neg; 03/29 Bcx NTD Probable Pneum : -03/31 CXR: Pulmonary edema. Marginal improvement since the last occasion -03/29 CXR: . Persistent prominent interstitial markings, suggesting pulmonary vascular congestion, interstitial edema, or interstitial pneumonitis, not significantly changed. Subsegmental atelectasis versus infiltrates in bilateral lung bases. Possible small pleural effusions. -CXR: Subtle patchy opacities in the right upper lung raising question for developing pneumonia. Clinical correlation/follow-up recommended. -influenza sc neg -sp cx MRSA, C. albicans (Colonizer); 03/29 sp cx MRSA, PSA (R Cefepime, Ceftazidie, Zosyn; S Cipro/levo, Genta, Imi)(prob colonizers) 03/19/17 - CT C/A/P - Bilateral basilar pneumonia versus atelectasis. Small to moderate left pleural effusion and a small right pleural effusion noted. 03/19/18 UCx - Yeast 03/23/18 CXR - B/L consolidation R>L 03/22/09 SpCx - MRSA, P.a. and NF Low grade fever, SP Leukocytosis -recurrent, improving -03/29 CDiff neg FTT HTN Afib dysphagia HLD Dementia contractures Plan: -Continue IV Vanco d# 16/-20 -04/01 SP flagyl #12 -03/31 SP Cefepime #27 -03/13 SP IV Vancomycin #7 -03/06 SP Meropenem x1 -Monitor CBC/CMP, temperatures -aspiration precautions Subjective Allergies: Coded Allergies: No Known Allergies (Unverified , 03/06/18) Subjective afebrile leukocytosis imporivng off pressors on VM repeat Bcx NTD Objective Vital Signs Last 24 Hour Vital Signs Date Time Temp Pulse Resp B/P (MAP) Pulse Ox O2 Delivery O2 Flow Rate FiO2 04/02/18 09:30 84 37 97/54 (68) 99 04/02/18 09:00 90 36 91/63 (72) 99 04/02/18 08:47 98 04/02/18 08:30 95 37 103/53 (70) 99 04/02/18 08:00 Venturi Mask 15.0 04/02/18 08:00 94 30 103/51 (68) 99 04/02/18 08:00 98 04/02/18 07:30 98.9 92 29 107/58 (74) 99 04/02/18 07:03 91 33 100 Bi-pap 50 04/02/18 07:02 99 Bi-pap 50 04/02/18 07:02 Bi-pap 50 04/02/18 07:00 91 30 97/54 (68) 99 04/02/18 06:58 78 34 99 Bi-pap 40 04/02/18 06:58 50 04/02/18 06:30 91 27 94/50 (65) 99 04/02/18 06:00 94 23 100/60 (73) 97 04/02/18 05:30 95 23 98/60 (73) 97 04/02/18 05:00 95 23 94/56 (69) 97 04/02/18 04:54 99 32 95 Full Face 50 04/02/18 04:30 92 23 108/59 (75) 95 04/02/18 04:00 Venturi Mask 10.0 04/02/18 04:00 94 04/02/18 04:00 50 04/02/18 04:00 99.2 92 23 101/60 (74) 95 04/02/18 03:30 91 23 96/60 (72) 95 04/02/18 03:00 89 22 87/61 (70) 95 04/02/18 02:36 80 20 96 Full Face 40 04/02/18 02:30 89 22 99/48 (65) 95 04/02/18 02:29 82 21 96 Bi-pap 40 04/02/18 02:19 90 20 96 Bi-pap 40 04/02/18 02:00 87 24 96/66 (76) 96 04/02/18 01:30 67 25 93/62 (72) 96 04/02/18 01:00 82 25 95/62 (73) 96 04/02/18 00:30 80 25 93/52 (66) 96 04/02/18 00:00 73 04/02/18 00:00 50 04/02/18 00:00 Venturi Mask 10.0 04/02/18 00:00 99.0 75 25 100/48 (65) 96 04/01/18 23:56 72 31 92 Full Face 50 04/01/18 23:30 93 25 100/48 (65) 86 04/01/18 23:00 92 25 100/48 (65) 98 04/01/18 22:30 90 23 90/40 (57) 97 04/01/18 22:00 89 22 94/34 (54) 97 04/01/18 21:30 87 23 94/34 (54) 97 04/01/18 21:00 88 25 100/42 (61) 97 04/01/18 20:30 89 22 101/44 (63) 98 04/01/18 20:00 Venturi Mask 10.0 04/01/18 20:00 98.2 91 23 88/46 (60) 97 04/01/18 19:35 94 26 98 Venturi Mask 14.0 55 04/01/18 19:30 89 25 86/46 (59) 98 04/01/18 19:19 89 24 97 Venturi Mask 14.0 55 04/01/18 19:19 Venturi Mask 14.0 55 04/01/18 19:19 97 Venturi Mask 14.0 55 04/01/18 19:00 96 35 110/52 (71) 98 04/01/18 18:30 93 23 98/36 (56) 98 04/01/18 18:00 86 22 98/36 (56) 99 04/01/18 17:30 87 31 85/45 (58) 99 04/01/18 17:12 91/42 04/01/18 17:00 79 24 90/46 (61) 99 04/01/18 16:30 84 23 91/42 (58) 99 04/01/18 16:00 103 04/01/18 16:00 98.7 86 24 87/51 (63) 99 04/01/18 16:00 Venturi Mask 04/01/18 15:30 92 25 91/44 (60) 95 04/01/18 15:00 88 29 82/39 (53) 96 04/01/18 14:30 82 23 90/40 (57) 96 04/01/18 14:00 82 23 91/38 (55) 97 04/01/18 13:30 76 32 140/57 (84) 98 04/01/18 13:20 85 26 100 Venturi Mask 14.0 55 04/01/18 13:02 83 24 95 Venturi Mask 14.0 55 04/01/18 13:00 82 34 86/51 (63) 100 04/01/18 12:30 86 33 86/44 (58) 95 04/01/18 12:00 Venturi Mask 04/01/18 12:00 83 04/01/18 12:00 99.0 81 31 92/45 (61) 92 04/01/18 11:30 81 26 98/63 (75) 94 Height (Feet): 5 Height (Inches): 3.00 Weight (Pounds): 152 Objective General Appearance: no apparent distress, alert, GCS 15, non-toxic, other - frail, elderly, chronically ill, contracted, non-verbal, Chronically Ill HEENT: normocephalic, atraumatic, bilateral eye normal inspection, bilateral eye PERRL Respiratory: chest non-tender, lungs clear, normal breath sounds, no respiratory distress, no retraction, no accessory muscle use, speaking full sentences Cardiovascular : no edema, tachycardia, systolic murmur, irregularly irregular Gastrointestinal: normal bowel sounds, non tender, soft, non-distended, no guarding, no rebound, other - colostomy bag in place. Musculoskeletal: back normal, gait/station normal, normal range of motion, non- tender Neurologic: alert, other - non-focal. Contracted, non-verbal Skin: no rash, warm/dry, well hydrated, other - Multiple DU Microbiology Date/Time Source Procedure Growth Status 03/31/18 15:25 Blood Blood Culture - Preliminary NO GROWTH AFTER 24 HOURS Resulted 03/31/18 15:18 Blood Blood Culture - Preliminary NO GROWTH AFTER 24 HOURS Resulted Laboratory Tests Test 04/01/18 19:00 04/02/18 04:40 04/02/18 08:20 Vancomycin Level Trough 16.7 ug/mL (5.0-12.0) H White Blood Count 13.5 K/UL (4.8-10.8) H Red Blood Count 2.81 M/UL (4.20-5.40) L Hemoglobin 8.6 G/DL (12.0-16.0) L Hematocrit 27.0 % (37.0-47.0) L Mean Corpuscular Volume 96 FL (80-99) Mean Corpuscular Hemoglobin 30.5 PG (27.0-31.0) Mean Corpuscular Hemoglobin Concent 31.8 G/DL (32.0-36.0) L Red Cell Distribution Width 15.4 % (11.6-14.8) H Platelet Count 324 K/UL (150-450) Mean Platelet Volume 5.0 FL (6.5-10.1) L Neutrophils (%) (Auto) 82.0 % (45.0-75.0) H Lymphocytes (%) (Auto) 8.2 % (20.0-45.0) L Monocytes (%) (Auto) 9.2 % (1.0-10.0) Eosinophils (%) (Auto) 0.1 % (0.0-3.0) Basophils (%) (Auto) 0.6 % (0.0-2.0) Sodium Level 139 MMOL/L (136-145) Potassium Level 4.0 MMOL/L (3.5-5.1) Chloride Level 105 MMOL/L (98-107) Carbon Dioxide Level 29 MMOL/L (21-32) Anion Gap 5 mmol/L (5-15) Blood Urea Nitrogen 12 mg/dL (7-18) Creatinine 0.6 MG/DL (0.55-1.30) Estimat Glomerular Filtration Rate mL/min (>60) Glucose Level 125 MG/DL (74-106) H Calcium Level 8.1 MG/DL (8.5-10.1) L Phosphorus Level 2.8 MG/DL (2.5-4.9) Magnesium Level 1.9 MG/DL (1.8-2.4) Total Bilirubin 0.3 MG/DL (0.2-1.0) Aspartate Amino Transf (AST/SGOT) 27 U/L (15-37) Alanine Aminotransferase (ALT/SGPT) 11 U/L (12-78) L Alkaline Phosphatase 95 U/L (46-116) Total Protein 4.9 G/DL (6.4-8.2) L Albumin 1.3 G/DL (3.4-5.0) L Globulin 3.6 g/dL Albumin/Globulin Ratio 0.4 (1.0-2.7) L Arterial Blood pH 7.521 (7.350-7.450) Arterial Blood Partial Pressure CO2 38.7 mmHg (35.0-45.0) Arterial Blood Partial Pressure O2 101.3 mmHg (75.0-100.0) H Arterial Blood HCO3 31.0 mmol/L (22.0-26.0) H Arterial Blood Oxygen Saturation 97.2 % (95-100) Arterial Blood Base Excess 7.6 (-2-2) H Temo Test Positive Current Medications Medications (Trade) Dose Ordered Sig/Cele Route PRN Reason Start Time Stop Time Status Last Admin Dose Admin Acetaminophen (Tylenol) 650 mg Q4H PRN PEG fever (temp>100.5F) 03/26/18 16:00 04/17/18 05:44 04/01/18 08:18 Acetylcysteine (Mucomyst) 200 mg Q6HRT HHN 03/23/18 19:00 04/22/18 00:59 04/02/18 07:01 Amiodarone HCl 900 mg/Dextrose 500 ml @ 0 mls/hr Q24H IV 04/01/18 20:30 04/02/18 20:29 04/01/18 22:19 Chlorhexidine Gluconate (Sahra-Hex 2%) 1 applic DAILY@2000 TOPIC 03/23/18 20:00 04/13/18 19:59 04/01/18 20:07 Digoxin (Lanoxin) 0.125 mg DAILY IVP 03/30/18 09:00 04/29/18 08:59 04/02/18 08:47 Ipratropium [place] (Atrovent) 500 mcg Q4H PRN HHN Shortness of Breath 03/28/18 20:30 04/02/18 20:29 04/02/18 07:01 Levalbuterol HCl (Xopenex) 1.25 mg Q4H PRN HHN Shortness of Breath 03/28/18 20:30 04/02/18 20:29 04/02/18 07:01 Metoclopramide HCl (Reglan) 5 mg EVERY 8 HOURS NG 03/31/18 14:00 04/30/18 13:59 04/02/18 06:21 Norepinephrine Bitartrate 4 mg/ Dextrose 250 ml @ 0 mls/hr Q24H IV 03/23/18 18:30 04/22/18 18:29 03/30/18 10:01 Olanzapine (ZyPREXA) 2.5 mg Q6H PRN GT agitation 03/26/18 16:00 04/07/18 15:59 Pantoprazole (Protonix) 40 mg EVERY 12 HOURS IVP 03/27/18 21:00 04/26/18 20:59 04/02/18 08:46 Polyethylene Glycol (Miralax) 17 gm DAILYPRN PRN GT Constipation 03/26/18 16:00 04/22/18 15:59 Tamsulosin HCl (Flomax) 0.4 mg BEDTIME ORAL 03/23/18 21:00 04/05/18 20:59 04/01/18 21:18 Vancomycin HCl (Vanco rx to dose) 1 ea DAILY PRN MISC Per rx protocol 03/24/18 09:00 04/14/18 10:59 Vancomycin HCl 500 mg/Dextrose 110 ml @ 110 mls/hr Q12HR@0800,2000 IVPB 03/30/18 08:00 04/07/18 23:59 04/02/18 08:47 Sussy Daniel M.D. Apr 02, 2018 11:05
[2018-04-02] MEDS ORDERED: Amiodarone 200mg tab ORAL ONE (11:30)
--- NOTE | 2018-04-02 11:31 | Cardiac Electrophysiology PN ---
Assessment/Plan Status Narrative Technically difficult study due to patient was contracted. Study quality precludes accurate assessment of regional wall motion. Normal left ventricular chamber size, systolic function and wall motion. Left ventricular ejection fraction estimated to be 60-65 %. Mild left ventricular hypertrophy. Small circumferential pericardial effusion. Mild left atrial enlargement. Right cardiac chamber sizes are within normal limits. Aortic valve calcification with decreased cusp excursion c/w aortic stenosis. Mildly thickened mitral valve leaflets with normal excursion. Moderate mitral annulus and aortic root calcification. Normal pulmonic valve structure. Normal tricuspid valve structure. Subcostal views not obtainable due to G tube. Assessment/Plan 1. Paroxysmal atrial fibrillation with rapid ventricular response. Off Cardizem drip as BP dropped to 70s. Echo EF 65%. On Digoxin 0.125 iv daily and Amio drip 0.5 mg Change iv Amio to GT 200 daily. Keep on iv Dig GT still has high residual and if develops fib with RVR again, will switch back to iv amio 2. Urosepsis. On IV antibiotic per ID. 3. Hypotension, off levophed and on IV fluid. 4. Sacral decubitus ulcer. 5. Dementia. 6. Dysphagia. S/P G-tube placement 03/21/17 KEIRY RN Subjective Subjective In ICU in atrial fib with controlled rate on Amio drip 0.5 mg and iv Digoxin. Off Levophed . GT still has high residual Objective Last 24 Hour Vital Signs Date Time Temp Pulse Resp B/P (MAP) Pulse Ox O2 Delivery O2 Flow Rate FiO2 04/02/18 09:30 84 37 97/54 (68) 99 04/02/18 09:00 90 36 91/63 (72) 99 04/02/18 08:47 98 04/02/18 08:30 95 37 103/53 (70) 99 04/02/18 08:00 Venturi Mask 15.0 04/02/18 08:00 94 30 103/51 (68) 99 04/02/18 08:00 98 04/02/18 07:30 98.9 92 29 107/58 (74) 99 04/02/18 07:03 91 33 100 Bi-pap 50 04/02/18 07:02 99 Bi-pap 50 04/02/18 07:02 Bi-pap 50 04/02/18 07:00 91 30 97/54 (68) 99 04/02/18 06:58 78 34 99 Bi-pap 40 04/02/18 06:58 50 04/02/18 06:30 91 27 94/50 (65) 99 04/02/18 06:00 94 23 100/60 (73) 97 04/02/18 05:30 95 23 98/60 (73) 97 04/02/18 05:00 95 23 94/56 (69) 97 04/02/18 04:54 99 32 95 Full Face 50 04/02/18 04:30 92 23 108/59 (75) 95 04/02/18 04:00 Venturi Mask 10.0 04/02/18 04:00 94 04/02/18 04:00 50 04/02/18 04:00 99.2 92 23 101/60 (74) 95 04/02/18 03:30 91 23 96/60 (72) 95 04/02/18 03:00 89 22 87/61 (70) 95 04/02/18 02:36 80 20 96 Full Face 40 04/02/18 02:30 89 22 99/48 (65) 95 04/02/18 02:29 82 21 96 Bi-pap 40 04/02/18 02:19 90 20 96 Bi-pap 40 04/02/18 02:00 87 24 96/66 (76) 96 04/02/18 01:30 67 25 93/62 (72) 96 04/02/18 01:00 82 25 95/62 (73) 96 04/02/18 00:30 80 25 93/52 (66) 96 04/02/18 00:00 73 04/02/18 00:00 50 04/02/18 00:00 Venturi Mask 10.0 04/02/18 00:00 99.0 75 25 100/48 (65) 96 04/01/18 23:56 72 31 92 Full Face 50 04/01/18 23:30 93 25 100/48 (65) 86 04/01/18 23:00 92 25 100/48 (65) 98 04/01/18 22:30 90 23 90/40 (57) 97 04/01/18 22:00 89 22 94/34 (54) 97 04/01/18 21:30 87 23 94/34 (54) 97 04/01/18 21:00 88 25 100/42 (61) 97 04/01/18 20:30 89 22 101/44 (63) 98 04/01/18 20:00 Venturi Mask 10.0 04/01/18 20:00 98.2 91 23 88/46 (60) 97 04/01/18 19:35 94 26 98 Venturi Mask 14.0 55 04/01/18 19:30 89 25 86/46 (59) 98 04/01/18 19:19 89 24 97 Venturi Mask 14.0 55 04/01/18 19:19 Venturi Mask 14.0 55 04/01/18 19:19 97 Venturi Mask 14.0 55 04/01/18 19:00 96 35 110/52 (71) 98 04/01/18 18:30 93 23 98/36 (56) 98 04/01/18 18:00 86 22 98/36 (56) 99 04/01/18 17:30 87 31 85/45 (58) 99 04/01/18 17:12 91/42 04/01/18 17:00 79 24 90/46 (61) 99 04/01/18 16:30 84 23 91/42 (58) 99 04/01/18 16:00 103 04/01/18 16:00 98.7 86 24 87/51 (63) 99 04/01/18 16:00 Venturi Mask 04/01/18 15:30 92 25 91/44 (60) 95 04/01/18 15:00 88 29 82/39 (53) 96 04/01/18 14:30 82 23 90/40 (57) 96 04/01/18 14:00 82 23 91/38 (55) 97 04/01/18 13:30 76 32 140/57 (84) 98 04/01/18 13:20 85 26 100 Venturi Mask 14.0 55 04/01/18 13:02 83 24 95 Venturi Mask 14.0 55 04/01/18 13:00 82 34 86/51 (63) 100 04/01/18 12:30 86 33 86/44 (58) 95 04/01/18 12:00 Venturi Mask 04/01/18 12:00 83 04/01/18 12:00 99.0 81 31 92/45 (61) 92 04/01/18 11:30 81 26 98/63 (75) 94 Intake and Output 04/01/18 04/02/18 19:00 07:00 Intake Total 416.60 ml 586.58 ml Output Total 600 ml 840 ml Balance -183.40 ml -253.42 ml Intake Free Water 50 ml IV Total 276.60 ml 326.58 ml Tube Feeding 140 ml 210 ml Output Urine Total 600 ml 740 ml Stool Total 100 ml # Voids 70 Laboratory Tests Test 04/01/18 19:00 04/02/18 04:40 04/02/18 08:20 Vancomycin Level Trough 16.7 ug/mL (5.0-12.0) H White Blood Count 13.5 K/UL (4.8-10.8) H Red Blood Count 2.81 M/UL (4.20-5.40) L Hemoglobin 8.6 G/DL (12.0-16.0) L Hematocrit 27.0 % (37.0-47.0) L Mean Corpuscular Volume 96 FL (80-99) Mean Corpuscular Hemoglobin 30.5 PG (27.0-31.0) Mean Corpuscular Hemoglobin Concent 31.8 G/DL (32.0-36.0) L Red Cell Distribution Width 15.4 % (11.6-14.8) H Platelet Count 324 K/UL (150-450) Mean Platelet Volume 5.0 FL (6.5-10.1) L Neutrophils (%) (Auto) 82.0 % (45.0-75.0) H Lymphocytes (%) (Auto) 8.2 % (20.0-45.0) L Monocytes (%) (Auto) 9.2 % (1.0-10.0) Eosinophils (%) (Auto) 0.1 % (0.0-3.0) Basophils (%) (Auto) 0.6 % (0.0-2.0) Sodium Level 139 MMOL/L (136-145) Potassium Level 4.0 MMOL/L (3.5-5.1) Chloride Level 105 MMOL/L (98-107) Carbon Dioxide Level 29 MMOL/L (21-32) Anion Gap 5 mmol/L (5-15) Blood Urea Nitrogen 12 mg/dL (7-18) Creatinine 0.6 MG/DL (0.55-1.30) Estimat Glomerular Filtration Rate mL/min (>60) Glucose Level 125 MG/DL (74-106) H Calcium Level 8.1 MG/DL (8.5-10.1) L Phosphorus Level 2.8 MG/DL (2.5-4.9) Magnesium Level 1.9 MG/DL (1.8-2.4) Total Bilirubin 0.3 MG/DL (0.2-1.0) Aspartate Amino Transf (AST/SGOT) 27 U/L (15-37) Alanine Aminotransferase (ALT/SGPT) 11 U/L (12-78) L Alkaline Phosphatase 95 U/L (46-116) Total Protein 4.9 G/DL (6.4-8.2) L Albumin 1.3 G/DL (3.4-5.0) L Globulin 3.6 g/dL Albumin/Globulin Ratio 0.4 (1.0-2.7) L Arterial Blood pH 7.521 (7.350-7.450) Arterial Blood Partial Pressure CO2 38.7 mmHg (35.0-45.0) Arterial Blood Partial Pressure O2 101.3 mmHg (75.0-100.0) H Arterial Blood HCO3 31.0 mmol/L (22.0-26.0) H Arterial Blood Oxygen Saturation 97.2 % (95-100) Arterial Blood Base Excess 7.6 (-2-2) H Temo Test Positive Microbiology Date/Time Source Procedure Growth Status 03/31/18 15:25 Blood Blood Culture - Preliminary NO GROWTH AFTER 24 HOURS Resulted 03/31/18 15:18 Blood Blood Culture - Preliminary NO GROWTH AFTER 24 HOURS Resulted Objective HEAD AND NECK: No JVD. LUNGS: Coarse rhonchi bilaterally. CARDIOVASCULAR: Irregular tachy S1 and S2 with no gallop. ABDOMEN: Status post colostomy. GT in place EXTREMITIES: No pitting edema Fredrick Burk MD Apr 02, 2018 11:31
--- NOTE | 2018-04-02 13:07 | Pulmonolgy Critical Care Note ---
Critical Care - Asmt/Plan Problems: (1) Respiratory distress (2) Pleural effusion (3) Pneumonia (4) Atrial fibrillation with RVR (5) Sacral decubitus ulcer, stage IV (6) Protein-calorie malnutrition, severe (7) At high risk for aspiration Respiratory: monitor respiratory rate, adjust FIO2, CXR Cardiac: continue to monitor HR/BP Renal: F/U I&O, other - lasix one dose Infectious Disease: check cultures Gastrointestinal: continue feedings/current rate Endocrine: monitor blood sugar, check HgA1C, continue sliding scale insulin Hematologic: monitor H/H, transfuse if hgb<8.5 Neurologic: PRN Ativan, keep patient comfortable Affect: PRN ativan Prophylaxis: Protonix, Heparin Notes 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: 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 florist Discussed with: nurses, consultants, case linerclient support manager - Objective Last 24 Hour Vital Signs Date Time Temp Pulse Resp B/P (MAP) Pulse Ox O2 Delivery O2 Flow Rate FiO2 04/02/18 12:30 98.9 90 38 114/62 (79) 94 04/02/18 12:00 102 04/02/18 12:00 15.0 55 04/02/18 12:00 Venturi Mask 15.0 04/02/18 11:30 79 29 106/63 (77) 96 04/02/18 11:00 82 30 97/64 (75) 96 04/02/18 10:30 81 35 106/65 (79) 97 04/02/18 10:00 86 31 103/84 (90) 96 04/02/18 09:30 84 37 97/54 (68) 99 04/02/18 09:00 90 36 91/63 (72) 99 04/02/18 08:47 98 04/02/18 08:30 95 37 103/53 (70) 99 04/02/18 08:00 Venturi Mask 15.0 04/02/18 08:00 94 30 103/51 (68) 99 04/02/18 08:00 98 04/02/18 07:30 98.9 92 29 107/58 (74) 99 04/02/18 07:03 91 33 100 Bi-pap 50 04/02/18 07:02 99 Bi-pap 50 04/02/18 07:02 Bi-pap 50 04/02/18 07:00 91 30 97/54 (68) 99 04/02/18 06:58 78 34 99 Bi-pap 40 04/02/18 06:58 50 04/02/18 06:30 91 27 94/50 (65) 99 04/02/18 06:00 94 23 100/60 (73) 97 04/02/18 05:30 95 23 98/60 (73) 97 04/02/18 05:00 95 23 94/56 (69) 97 04/02/18 04:54 99 32 95 Full Face 50 04/02/18 04:30 92 23 108/59 (75) 95 04/02/18 04:00 Venturi Mask 10.0 04/02/18 04:00 94 04/02/18 04:00 50 04/02/18 04:00 99.2 92 23 101/60 (74) 95 04/02/18 03:30 91 23 96/60 (72) 95 04/02/18 03:00 89 22 87/61 (70) 95 04/02/18 02:36 80 20 96 Full Face 40 04/02/18 02:30 89 22 99/48 (65) 95 04/02/18 02:29 82 21 96 Bi-pap 40 04/02/18 02:19 90 20 96 Bi-pap 40 04/02/18 02:00 87 24 96/66 (76) 96 04/02/18 01:30 67 25 93/62 (72) 96 04/02/18 01:00 82 25 95/62 (73) 96 04/02/18 00:30 80 25 93/52 (66) 96 04/02/18 00:00 73 04/02/18 00:00 50 04/02/18 00:00 Venturi Mask 10.0 04/02/18 00:00 99.0 75 25 100/48 (65) 96 04/01/18 23:56 72 31 92 Full Face 50 04/01/18 23:30 93 25 100/48 (65) 86 04/01/18 23:00 92 25 100/48 (65) 98 04/01/18 22:30 90 23 90/40 (57) 97 04/01/18 22:00 89 22 94/34 (54) 97 04/01/18 21:30 87 23 94/34 (54) 97 04/01/18 21:00 88 25 100/42 (61) 97 04/01/18 20:30 89 22 101/44 (63) 98 04/01/18 20:00 Venturi Mask 10.0 04/01/18 20:00 98.2 91 23 88/46 (60) 97 04/01/18 19:35 94 26 98 Venturi Mask 14.0 55 04/01/18 19:30 89 25 86/46 (59) 98 04/01/18 19:19 89 24 97 Venturi Mask 14.0 55 04/01/18 19:19 Venturi Mask 14.0 55 04/01/18 19:19 97 Venturi Mask 14.0 55 04/01/18 19:00 96 35 110/52 (71) 98 04/01/18 18:30 93 23 98/36 (56) 98 04/01/18 18:00 86 22 98/36 (56) 99 04/01/18 17:30 87 31 85/45 (58) 99 04/01/18 17:12 91/42 04/01/18 17:00 79 24 90/46 (61) 99 04/01/18 16:30 84 23 91/42 (58) 99 04/01/18 16:00 103 04/01/18 16:00 98.7 86 24 87/51 (63) 99 04/01/18 16:00 Venturi Mask 04/01/18 15:30 92 25 91/44 (60) 95 04/01/18 15:00 88 29 82/39 (53) 96 04/01/18 14:30 82 23 90/40 (57) 96 04/01/18 14:00 82 23 91/38 (55) 97 04/01/18 13:30 76 32 140/57 (84) 98 04/01/18 13:20 85 26 100 Venturi Mask 14.0 55 Status: awake Condition: critical Neck: full ROM Lungs: chest wall tender Heart: regular Abdomen: active bowel sounds Extremities: edema Decubiti: stage Micro: Microbiology Date/Time Source Procedure Growth Status 03/31/18 15:25 Blood Blood Culture - Preliminary NO GROWTH AFTER 24 HOURS Resulted 03/31/18 15:18 Blood Blood Culture - Preliminary NO GROWTH AFTER 24 HOURS Resulted Accucheck: 111 Critical Care - Subjective ROS Limited/Unobtainable: Yes Condition: critical EKG Rhythm: Sinus Rhythm FI02: 55 Vent Support Mode: CPAP Sputum Amount: Moderate Tube Feeding Amount: 20 I&O: Intake and Output 04/01/18 04/02/18 19:00 07:00 Intake Total 416.60 ml 586.58 ml Output Total 600 ml 840 ml Balance -183.40 ml -253.42 ml Intake Free Water 50 ml IV Total 276.60 ml 326.58 ml Tube Feeding 140 ml 210 ml Output Urine Total 600 ml 740 ml Stool Total 100 ml # Voids 70 CXR: left effusion Labs: Laboratory Tests Test 04/01/18 19:00 04/02/18 04:40 04/02/18 08:20 Vancomycin Level Trough 16.7 ug/mL (5.0-12.0) H White Blood Count 13.5 K/UL (4.8-10.8) H Red Blood Count 2.81 M/UL (4.20-5.40) L Hemoglobin 8.6 G/DL (12.0-16.0) L Hematocrit 27.0 % (37.0-47.0) L Mean Corpuscular Volume 96 FL (80-99) Mean Corpuscular Hemoglobin 30.5 PG (27.0-31.0) Mean Corpuscular Hemoglobin Concent 31.8 G/DL (32.0-36.0) L Red Cell Distribution Width 15.4 % (11.6-14.8) H Platelet Count 324 K/UL (150-450) Mean Platelet Volume 5.0 FL (6.5-10.1) L Neutrophils (%) (Auto) 82.0 % (45.0-75.0) H Lymphocytes (%) (Auto) 8.2 % (20.0-45.0) L Monocytes (%) (Auto) 9.2 % (1.0-10.0) Eosinophils (%) (Auto) 0.1 % (0.0-3.0) Basophils (%) (Auto) 0.6 % (0.0-2.0) Sodium Level 139 MMOL/L (136-145) Potassium Level 4.0 MMOL/L (3.5-5.1) Chloride Level 105 MMOL/L (98-107) Carbon Dioxide Level 29 MMOL/L (21-32) Anion Gap 5 mmol/L (5-15) Blood Urea Nitrogen 12 mg/dL (7-18) Creatinine 0.6 MG/DL (0.55-1.30) Estimat Glomerular Filtration Rate mL/min (>60) Glucose Level 125 MG/DL (74-106) H Calcium Level 8.1 MG/DL (8.5-10.1) L Phosphorus Level 2.8 MG/DL (2.5-4.9) Magnesium Level 1.9 MG/DL (1.8-2.4) Total Bilirubin 0.3 MG/DL (0.2-1.0) Aspartate Amino Transf (AST/SGOT) 27 U/L (15-37) Alanine Aminotransferase (ALT/SGPT) 11 U/L (12-78) L Alkaline Phosphatase 95 U/L (46-116) Total Protein 4.9 G/DL (6.4-8.2) L Albumin 1.3 G/DL (3.4-5.0) L Globulin 3.6 g/dL Albumin/Globulin Ratio 0.4 (1.0-2.7) L Arterial Blood pH 7.521 (7.350-7.450) Arterial Blood Partial Pressure CO2 38.7 mmHg (35.0-45.0) Arterial Blood Partial Pressure O2 101.3 mmHg (75.0-100.0) H Arterial Blood HCO3 31.0 mmol/L (22.0-26.0) H Arterial Blood Oxygen Saturation 97.2 % (95-100) Arterial Blood Base Excess 7.6 (-2-2) H Temo Test Positive Rishi Gutierrez MD Apr 02, 2018 13:07
--- NOTE | 2018-04-02 13:14 | GI Progress Note ---
Assessment/Plan Problems: (1) Encounter for PEG (percutaneous endoscopic gastrostomy) ICD Codes: Z43.1 - Encounter for attention to gastrostomy SNOMED: 963532409, 387375853 (2) At high risk for aspiration ICD Codes: Z91.89 - Other specified personal risk factors, not elsewhere classified SNOMED: 445382343 (3) Protein-calorie malnutrition, severe ICD Codes: E43 - Unspecified severe protein-calorie malnutrition SNOMED: 818309256 (4) Dysphasia ICD Codes: R47.02 - Dysphasia SNOMED: 17988006 Status: unchanged Status Narrative Discussed with Dr. Velez Assessment/Plan s/p GT placement GTF and care, reported patient is not tolerating her G-tube feedings Increase Reglan to 10 mg ATC, restart feedings at low rate then advance to goal fu labs Follow-up pulmonary recommendations The patient was seen and examined at bedside and all new and available data was reviewed in the patients chart. I agree with the above findings, impression and plan. (Patient seen earlier today. Signature stamp does not reflect patient encounter time.). - Ernesto Velez MD Subjective Subjective Limited Objective Last 24 Hour Vital Signs Date Time Temp Pulse Resp B/P (MAP) Pulse Ox O2 Delivery O2 Flow Rate FiO2 04/02/18 13:10 Venturi Mask 14.0 55 04/02/18 13:10 Venturi Mask 14.0 55 04/02/18 12:30 98.9 90 38 114/62 (79) 94 04/02/18 12:00 102 04/02/18 12:00 15.0 55 04/02/18 12:00 Venturi Mask 15.0 04/02/18 11:30 79 29 106/63 (77) 96 04/02/18 11:00 82 30 97/64 (75) 96 04/02/18 10:30 81 35 106/65 (79) 97 04/02/18 10:00 86 31 103/84 (90) 96 04/02/18 09:30 84 37 97/54 (68) 99 04/02/18 09:00 90 36 91/63 (72) 99 04/02/18 08:47 98 04/02/18 08:30 95 37 103/53 (70) 99 04/02/18 08:00 Venturi Mask 15.0 04/02/18 08:00 94 30 103/51 (68) 99 04/02/18 08:00 98 04/02/18 07:30 98.9 92 29 107/58 (74) 99 04/02/18 07:03 91 33 100 Bi-pap 50 04/02/18 07:02 99 Bi-pap 50 04/02/18 07:02 Bi-pap 50 04/02/18 07:00 91 30 97/54 (68) 99 04/02/18 06:58 78 34 99 Bi-pap 40 04/02/18 06:58 50 04/02/18 06:30 91 27 94/50 (65) 99 04/02/18 06:00 94 23 100/60 (73) 97 04/02/18 05:30 95 23 98/60 (73) 97 04/02/18 05:00 95 23 94/56 (69) 97 04/02/18 04:54 99 32 95 Full Face 50 04/02/18 04:30 92 23 108/59 (75) 95 04/02/18 04:00 Venturi Mask 10.0 04/02/18 04:00 94 04/02/18 04:00 50 04/02/18 04:00 99.2 92 23 101/60 (74) 95 04/02/18 03:30 91 23 96/60 (72) 95 04/02/18 03:00 89 22 87/61 (70) 95 04/02/18 02:36 80 20 96 Full Face 40 04/02/18 02:30 89 22 99/48 (65) 95 04/02/18 02:29 82 21 96 Bi-pap 40 04/02/18 02:19 90 20 96 Bi-pap 40 04/02/18 02:00 87 24 96/66 (76) 96 04/02/18 01:30 67 25 93/62 (72) 96 04/02/18 01:00 82 25 95/62 (73) 96 04/02/18 00:30 80 25 93/52 (66) 96 04/02/18 00:00 73 04/02/18 00:00 50 04/02/18 00:00 Venturi Mask 10.0 04/02/18 00:00 99.0 75 25 100/48 (65) 96 04/01/18 23:56 72 31 92 Full Face 50 04/01/18 23:30 93 25 100/48 (65) 86 04/01/18 23:00 92 25 100/48 (65) 98 04/01/18 22:30 90 23 90/40 (57) 97 04/01/18 22:00 89 22 94/34 (54) 97 04/01/18 21:30 87 23 94/34 (54) 97 04/01/18 21:00 88 25 100/42 (61) 97 04/01/18 20:30 89 22 101/44 (63) 98 04/01/18 20:00 Venturi Mask 10.0 04/01/18 20:00 98.2 91 23 88/46 (60) 97 04/01/18 19:35 94 26 98 Venturi Mask 14.0 55 04/01/18 19:30 89 25 86/46 (59) 98 04/01/18 19:19 89 24 97 Venturi Mask 14.0 55 04/01/18 19:19 Venturi Mask 14.0 55 04/01/18 19:19 97 Venturi Mask 14.0 55 04/01/18 19:00 96 35 110/52 (71) 98 04/01/18 18:30 93 23 98/36 (56) 98 04/01/18 18:00 86 22 98/36 (56) 99 04/01/18 17:30 87 31 85/45 (58) 99 04/01/18 17:12 91/42 04/01/18 17:00 79 24 90/46 (61) 99 04/01/18 16:30 84 23 91/42 (58) 99 04/01/18 16:00 103 04/01/18 16:00 98.7 86 24 87/51 (63) 99 04/01/18 16:00 Venturi Mask 04/01/18 15:30 92 25 91/44 (60) 95 04/01/18 15:00 88 29 82/39 (53) 96 04/01/18 14:30 82 23 90/40 (57) 96 04/01/18 14:00 82 23 91/38 (55) 97 04/01/18 13:30 76 32 140/57 (84) 98 04/01/18 13:20 85 26 100 Venturi Mask 14.0 55 Intake and Output 04/01/18 04/02/18 19:00 07:00 Intake Total 416.60 ml 586.58 ml Output Total 600 ml 840 ml Balance -183.40 ml -253.42 ml Intake Free Water 50 ml IV Total 276.60 ml 326.58 ml Tube Feeding 140 ml 210 ml Output Urine Total 600 ml 740 ml Stool Total 100 ml # Voids 70 Laboratory Tests Test 04/01/18 19:00 04/02/18 04:40 04/02/18 08:20 Vancomycin Level Trough 16.7 ug/mL (5.0-12.0) H White Blood Count 13.5 K/UL (4.8-10.8) H Red Blood Count 2.81 M/UL (4.20-5.40) L Hemoglobin 8.6 G/DL (12.0-16.0) L Hematocrit 27.0 % (37.0-47.0) L Mean Corpuscular Volume 96 FL (80-99) Mean Corpuscular Hemoglobin 30.5 PG (27.0-31.0) Mean Corpuscular Hemoglobin Concent 31.8 G/DL (32.0-36.0) L Red Cell Distribution Width 15.4 % (11.6-14.8) H Platelet Count 324 K/UL (150-450) Mean Platelet Volume 5.0 FL (6.5-10.1) L Neutrophils (%) (Auto) 82.0 % (45.0-75.0) H Lymphocytes (%) (Auto) 8.2 % (20.0-45.0) L Monocytes (%) (Auto) 9.2 % (1.0-10.0) Eosinophils (%) (Auto) 0.1 % (0.0-3.0) Basophils (%) (Auto) 0.6 % (0.0-2.0) Sodium Level 139 MMOL/L (136-145) Potassium Level 4.0 MMOL/L (3.5-5.1) Chloride Level 105 MMOL/L (98-107) Carbon Dioxide Level 29 MMOL/L (21-32) Anion Gap 5 mmol/L (5-15) Blood Urea Nitrogen 12 mg/dL (7-18) Creatinine 0.6 MG/DL (0.55-1.30) Estimat Glomerular Filtration Rate mL/min (>60) Glucose Level 125 MG/DL (74-106) H Calcium Level 8.1 MG/DL (8.5-10.1) L Phosphorus Level 2.8 MG/DL (2.5-4.9) Magnesium Level 1.9 MG/DL (1.8-2.4) Total Bilirubin 0.3 MG/DL (0.2-1.0) Aspartate Amino Transf (AST/SGOT) 27 U/L (15-37) Alanine Aminotransferase (ALT/SGPT) 11 U/L (12-78) L Alkaline Phosphatase 95 U/L (46-116) Total Protein 4.9 G/DL (6.4-8.2) L Albumin 1.3 G/DL (3.4-5.0) L Globulin 3.6 g/dL Albumin/Globulin Ratio 0.4 (1.0-2.7) L Arterial Blood pH 7.521 (7.350-7.450) Arterial Blood Partial Pressure CO2 38.7 mmHg (35.0-45.0) Arterial Blood Partial Pressure O2 101.3 mmHg (75.0-100.0) H Arterial Blood HCO3 31.0 mmol/L (22.0-26.0) H Arterial Blood Oxygen Saturation 97.2 % (95-100) Arterial Blood Base Excess 7.6 (-2-2) H Temo Test Positive Height (Feet): 5 Height (Inches): 3.00 Weight (Pounds): 152 General Appearance: no apparent distress Cardiovascular: normal rate Respiratory/Chest: normal breath sounds, no respiratory distress, other - Venturi mask Abdominal Exam: normal bowel sounds, non tender, soft, GT site - Clean dry and intact Extremities: non-tender Thaddeus Galeana [employer]UC[employer] Apr 02, 2018 13:14
--- NOTE | 2018-04-02 13:25 | Internal Med Progress Note ---
Subjective Date of Service: Apr 02, 2018 Physician Name Shankar Betts Attending Physician Davian Scott MD Current Medications Medications (Trade) Dose Ordered Sig/Cele Route PRN Reason Start Time Stop Time Status Last Admin Dose Admin Acetaminophen (Tylenol) 650 mg Q4H PRN PEG fever (temp>100.5F) 03/26/18 16:00 04/17/18 05:44 04/01/18 08:18 Acetylcysteine (Mucomyst) 200 mg Q6HRT HHN 03/23/18 19:00 04/22/18 00:59 04/02/18 07:01 Amiodarone HCl (Cordarone) 200 mg DAILY ORAL 04/02/18 13:30 05/02/18 13:29 Chlorhexidine Gluconate (Sahra-Hex 2%) 1 applic DAILY@2000 TOPIC 03/23/18 20:00 04/13/18 19:59 04/01/18 20:07 Digoxin (Lanoxin) 0.125 mg DAILY IVP 03/30/18 09:00 04/29/18 08:59 04/02/18 08:47 Furosemide (Lasix) 20 mg ONCE IV 04/02/18 13:15 04/02/18 14:15 Ipratropium [place] (Atrovent) 500 mcg Q4H PRN HHN Shortness of Breath 03/28/18 20:30 04/02/18 20:29 04/02/18 07:01 Levalbuterol HCl (Xopenex) 1.25 mg Q4H PRN HHN Shortness of Breath 03/28/18 20:30 04/02/18 20:29 04/02/18 07:01 Metoclopramide HCl (Reglan) 10 mg EVERY 8 HOURS GT 04/02/18 14:00 05/02/18 13:59 Olanzapine (ZyPREXA) 2.5 mg Q6H PRN GT agitation 03/26/18 16:00 04/07/18 15:59 Pantoprazole (Protonix) 40 mg EVERY 12 HOURS IVP 03/27/18 21:00 04/26/18 20:59 04/02/18 08:46 Polyethylene Glycol (Miralax) 17 gm DAILYPRN PRN GT Constipation 03/26/18 16:00 04/22/18 15:59 Tamsulosin HCl (Flomax) 0.4 mg BEDTIME ORAL 03/23/18 21:00 04/05/18 20:59 04/01/18 21:18 Vancomycin HCl (Vanco rx to dose) 1 ea DAILY PRN MISC Per rx protocol 03/24/18 09:00 04/14/18 10:59 Vancomycin HCl 500 mg/Dextrose 110 ml @ 110 mls/hr Q12HR@0800,2000 IVPB 03/30/18 08:00 04/07/18 23:59 04/02/18 08:47 Allergies: Coded Allergies: No Known Allergies (Unverified , 03/06/18) ROS Limited/Unobtainable: Yes Subjective 87 YO F admitted with hematuria and gen weakness. Now pyelonephritis respiratory distress and sepsis. Cover for Int Med-Dr Scott. ICU. On levophed ; Tolerating venturi mask. Afib with RVR Objective Last Vital Signs Date Time Temp Pulse Resp B/P (MAP) Pulse Ox O2 Delivery O2 Flow Rate FiO2 04/02/18 13:10 Venturi Mask 14.0 55 04/02/18 12:30 98.9 90 38 114/62 (79) 94 Laboratory Tests Test 04/01/18 19:00 04/02/18 04:40 04/02/18 08:20 Vancomycin Level Trough 16.7 ug/mL (5.0-12.0) H White Blood Count 13.5 K/UL (4.8-10.8) H Red Blood Count 2.81 M/UL (4.20-5.40) L Hemoglobin 8.6 G/DL (12.0-16.0) L Hematocrit 27.0 % (37.0-47.0) L Mean Corpuscular Volume 96 FL (80-99) Mean Corpuscular Hemoglobin 30.5 PG (27.0-31.0) Mean Corpuscular Hemoglobin Concent 31.8 G/DL (32.0-36.0) L Red Cell Distribution Width 15.4 % (11.6-14.8) H Platelet Count 324 K/UL (150-450) Mean Platelet Volume 5.0 FL (6.5-10.1) L Neutrophils (%) (Auto) 82.0 % (45.0-75.0) H Lymphocytes (%) (Auto) 8.2 % (20.0-45.0) L Monocytes (%) (Auto) 9.2 % (1.0-10.0) Eosinophils (%) (Auto) 0.1 % (0.0-3.0) Basophils (%) (Auto) 0.6 % (0.0-2.0) Sodium Level 139 MMOL/L (136-145) Potassium Level 4.0 MMOL/L (3.5-5.1) Chloride Level 105 MMOL/L (98-107) Carbon Dioxide Level 29 MMOL/L (21-32) Anion Gap 5 mmol/L (5-15) Blood Urea Nitrogen 12 mg/dL (7-18) Creatinine 0.6 MG/DL (0.55-1.30) Estimat Glomerular Filtration Rate mL/min (>60) Glucose Level 125 MG/DL (74-106) H Calcium Level 8.1 MG/DL (8.5-10.1) L Phosphorus Level 2.8 MG/DL (2.5-4.9) Magnesium Level 1.9 MG/DL (1.8-2.4) Total Bilirubin 0.3 MG/DL (0.2-1.0) Aspartate Amino Transf (AST/SGOT) 27 U/L (15-37) Alanine Aminotransferase (ALT/SGPT) 11 U/L (12-78) L Alkaline Phosphatase 95 U/L (46-116) Total Protein 4.9 G/DL (6.4-8.2) L Albumin 1.3 G/DL (3.4-5.0) L Globulin 3.6 g/dL Albumin/Globulin Ratio 0.4 (1.0-2.7) L Arterial Blood pH 7.521 (7.350-7.450) Arterial Blood Partial Pressure CO2 38.7 mmHg (35.0-45.0) Arterial Blood Partial Pressure O2 101.3 mmHg (75.0-100.0) H Arterial Blood HCO3 31.0 mmol/L (22.0-26.0) H Arterial Blood Oxygen Saturation 97.2 % (95-100) Arterial Blood Base Excess 7.6 (-2-2) H Temo Test Positive Microbiology Date/Time Source Procedure Growth Status 03/31/18 15:25 Blood Blood Culture - Preliminary NO GROWTH AFTER 24 HOURS Resulted 03/31/18 15:18 Blood Blood Culture - Preliminary NO GROWTH AFTER 24 HOURS Resulted Intake and Output 04/01/18 04/02/18 19:00 07:00 Intake Total 416.60 ml 586.58 ml Output Total 600 ml 840 ml Balance -183.40 ml -253.42 ml Intake Free Water 50 ml IV Total 276.60 ml 326.58 ml Tube Feeding 140 ml 210 ml Output Urine Total 600 ml 740 ml Stool Total 100 ml # Voids 70 Objective PHYSICAL EXAMINATION: GENERAL: The patient is a well-developed and well-nourished white female, in no apparent distress. HEENT: Eyes, pupils are equal and responsive to light and accommodation. Extraocular movements are intact. NECK: Supple without lymphadenopathy. CHEST: venturi mask; crackles and rales at bases; Decreased breath sounds at bilateral bases. Otherwise, clear to auscultation without wheezes or rales. CARDIOVASCULAR: Tachycardic. Regular rate and rhythm. S1, S2 are normal without murmurs, rubs, or gallops. ABDOMEN: Soft, nontender, and nondistended. Positive bowel sounds. No evidence of hepatosplenomegaly. Currently, no rebound or guarding noted. EXTREMITIES: Negative for clubbing, cyanosis, or edema. RECTAL/GENITAL: Deferred. NEUROLOGIC: Cranial nerves II through XII are grossly intact without focal deficits. Assessment/Plan Problem List: (1) Pyelonephritis Assessment & Plan: Pseudamonas and strep. See ID note-Continue cefepime and vanco (2) Sepsis (3) HTN (hypertension) Assessment & Plan: Currently hypotensive (4) Hypercholesteremia (5) Sacral decubitus ulcer, stage IV Assessment & Plan: See surgery note-dr Ramsay (6) Urinary tract infection Assessment & Plan: pseudamonas; continue cefepime per ID (7) Pneumonia Assessment & Plan: New RLL. Previously MRSA. Continue vanco per ID (8) Atrial fibrillation with RVR Assessment & Plan: Continue digoxin and amiodrone per cardiology (9) Respiratory distress Assessment & Plan: On venturi mask Status: not improved Assessment/Plan prognosis guarded-hospice Shankar Allred MD Apr 02, 2018 13:25
[2018-04-02] MEDS: Amiodarone 200mg tab ORAL SCH (13:48)
[2018-04-02] MEDS: Metoclopramide 10mg/10ml Liq GT SCH ×2 (13:49→22:10)
[2018-04-02] MEDS: Tamsulosin 0.4mg cap ORAL SCH (20:26)
[2018-04-02] MEDS: Dyna-Hex 2% Top Sol 2oz TOPIC SCH (20:26)
[2018-04-03] VITALS (14 sets, daily range): BP systolic 97–128; BP diastolic 48–82
[2018-04-03] MEDS: Acetylcysteine 20% Soln 4ml HHN SCH ×4 (01:00→19:07)
[2018-04-03 05:12] LABS: BASOPHILS % (AUTO) 0.4 % (0.0-2.0); EOSINOPHILS % (AUTO) 0.2 % (0.0-3.0); HEMATOCRIT 26.7 % (37.0-47.0); HEMOGLOBIN 8.6 G/DL (12.0-16.0); LYMPHOCYTES % (AUTO) 7.2 % (20.0-45.0); MEAN CORPUSCULAR VOLUME 95 FL (80-99); MONOCYTES % (AUTO) 8.2 % (1.0-10.0); PLATELET COUNT 351 K/UL (150-450); RED BLOOD COUNT 2.81 M/UL (4.20-5.40); RED CELL DISTRIBUTION WIDTH 15.6 % (11.6-14.8); WHITE BLOOD COUNT 13.8 K/UL (4.8-10.8)
[2018-04-03] MEDS: Metoclopramide 10mg/10ml Liq GT SCH ×3 (05:12→21:25)
[2018-04-03] MEDS ORDERED: Ipratropium 0.02% Inh Soln 2.5ml UD HHN PRN ×3 (05:15→13:15)
[2018-04-03 05:39] LABS: ALANINE AMINOTRANSFERASE 12 U/L (12-78); ALBUMIN 1.3 G/DL (3.4-5.0); ALBUMIN/GLOBULIN RATIO 0.4 (1.0-2.7); ALKALINE PHOSPHATASE 103 U/L (46-116); ANION GAP -1 mmol/L (5-15); ASPARTATE AMINO TRANSFERASE 21 U/L (15-37); BILIRUBIN,TOTAL 0.3 MG/DL (0.2-1.0); BLOOD UREA NITROGEN 11 mg/dL (7-18); CARBON DIOXIDE 35 MMOL/L (21-32); CHLORIDE 105 MMOL/L (98-107); CREATININE 0.5 MG/DL (0.55-1.30); POTASSIUM 3.4 MMOL/L (3.5-5.1); SODIUM 139 MMOL/L (136-145)
[2018-04-03] MEDS: Acetaminophen 650mg/20.3ml PEG PRN (07:09)
[2018-04-03] MEDS ORDERED: Vancomycin 500 MG in D5W 110 ML IVPB SCH ×2 (08:00→20:00)
[2018-04-03] MEDS: Vancomycin 500mg/D5W 110ml IVPB SCH ×2 (08:03)
[2018-04-03] MEDS: Digoxin 0.5mg/2ml Inj IVP SCH (08:09)
[2018-04-03] MEDS: Pantoprazole Inj IVP SCH ×2 (08:09→20:34)
[2018-04-03] MEDS: Amiodarone 200mg tab ORAL SCH (09:06)
[2018-04-03] MEDS ORDERED: Miralax 17gm pkt GT PRN ×3 (11:00→16:00)
[2018-04-03] MEDS ORDERED: OLANZapine 2.5mg tab GT PRN ×3 (11:00→16:00)
--- NOTE | 2018-04-03 11:10 | Pulmonolgy Critical Care Note ---
Critical Care - Asmt/Plan Problems: (1) Respiratory distress (2) Pleural effusion (3) Pneumonia (4) Atrial fibrillation with RVR (5) Sacral decubitus ulcer, stage IV (6) Protein-calorie malnutrition, severe (7) At high risk for aspiration Respiratory: monitor respiratory rate, adjust FIO2, CXR, other - thoracentesis ordered Cardiac: continue to monitor HR/BP Renal: F/U I&O, keep IV fluid Infectious Disease: check cultures, continue antibiotics Endocrine: monitor blood sugar, check TSH Neurologic: PRN Ativan Affect: PRN ativan Notes Reviewed: assembler bonding, cardio Discussed with: nurses, consultants Critical Care - Objective Last 24 Hour Vital Signs Date Time Temp Pulse Resp B/P (MAP) Pulse Ox O2 Delivery O2 Flow Rate FiO2 04/03/18 08:09 110 04/03/18 08:00 Venturi Mask 15.0 Venturi Mask 15.0 04/03/18 08:00 15.0 45 04/03/18 07:39 99.9 04/03/18 07:05 92 35 97 Venturi Mask 10.0 45 04/03/18 06:48 Bi-pap 50 04/03/18 06:48 100 Bi-pap 50 04/03/18 06:48 94 30 100 Bi-pap 50 04/03/18 06:46 94 30 100 Full Face 50 04/03/18 06:00 89 24 97/50 (66) 100 04/03/18 05:21 102 41 98 Full Face 50 04/03/18 05:00 99.8 93 25 103/48 (66) 100 04/03/18 04:00 50 04/03/18 04:00 94 04/03/18 04:00 89 22 97/52 (67) 100 04/03/18 04:00 Bi-pap Bi-pap 04/03/18 03:01 80 36 95 Facial 50 04/03/18 03:00 85 23 97/54 (68) 100 04/03/18 02:00 86 26 101/55 (70) 99 04/03/18 01:18 82 40 93 Full Face 50 04/03/18 01:10 Venturi Mask 14.0 55 04/03/18 01:08 Venturi Mask 14.0 55 04/03/18 01:00 98.7 86 29 97/49 (65) 96 04/03/18 00:00 86 04/03/18 00:00 Venturi Mask 15.0 Venturi Mask 15.0 04/03/18 00:00 15.0 55 04/03/18 00:00 86 28 100/60 (73) 97 04/02/18 23:00 86 31 113/60 (77) 96 04/02/18 22:00 87 35 111/73 (86) 97 04/02/18 21:00 92 36 103/59 (74) 97 04/02/18 20:00 Venturi Mask 14.0 55 04/02/18 20:00 Venturi Mask 15.0 Venturi Mask 15.0 04/02/18 20:00 96 Venturi Mask 14.0 55 04/02/18 20:00 90 04/02/18 20:00 15.0 55 04/02/18 20:00 109 20 97 Venturi Mask 14.0 55 04/02/18 20:00 95 31 110/59 (76) 97 04/02/18 19:50 103 20 95 Venturi Mask 14.0 55 04/02/18 19:00 97.8 98 24 108/62 (77) 97 04/02/18 18:00 98 24 108/62 (77) 97 04/02/18 17:00 81 31 110/57 (74) 97 04/02/18 16:18 15.0 55 04/02/18 16:00 Venturi Mask 15.0 04/02/18 16:00 85 04/02/18 16:00 98.1 88 29 110/71 (84) 96 04/02/18 15:00 76 27 116/66 (83) 98 04/02/18 14:00 79 30 116/66 (83) 96 04/02/18 13:30 89 34 109/55 (73) 95 04/02/18 13:10 Venturi Mask 14.0 55 04/02/18 13:10 Venturi Mask 14.0 55 04/02/18 12:30 98.9 90 38 114/62 (79) 94 04/02/18 12:00 102 04/02/18 12:00 15.0 55 04/02/18 12:00 Venturi Mask 15.0 04/02/18 11:30 79 29 106/63 (77) 96 Status: awake Condition: critical Neck: full ROM Heart: HR/BP stable Abdomen: soft, feeding tube Extremities: edema Micro: Microbiology Date/Time Source Procedure Growth Status 03/31/18 15:25 Blood Blood Culture - Preliminary NO GROWTH AFTER 48 HOURS Resulted 03/31/18 15:18 Blood Blood Culture - Preliminary NO GROWTH AFTER 48 HOURS Resulted Accucheck: 111 Critical Care - Subjective ROS Limited/Unobtainable: Yes Condition: critical EKG Rhythm: Sinus Rhythm FI02: 45 Vent Support Mode: CPAP Sputum Amount: Moderate Tube Feeding Amount: 20 I&O: Intake and Output 04/02/18 04/03/18 18:59 06:59 Intake Total 266.66 ml 450 ml Output Total 1360 ml 240 ml Balance -1093.34 ml 210 ml IV Total 16.66 ml 110 ml Tube Feeding 250 ml 300 ml Other 40 ml Output Urine Total 1260 ml 240 ml Stool Total 100 ml CXR: increasing left effusion Labs: Laboratory Tests Test 04/03/18 04:00 04/03/18 10:50 White Blood Count 13.8 K/UL (4.8-10.8) H Red Blood Count 2.81 M/UL (4.20-5.40) L Hemoglobin 8.6 G/DL (12.0-16.0) L Hematocrit 26.7 % (37.0-47.0) L Mean Corpuscular Volume 95 FL (80-99) Mean Corpuscular Hemoglobin 30.8 PG (27.0-31.0) Mean Corpuscular Hemoglobin Concent 32.4 G/DL (32.0-36.0) Red Cell Distribution Width 15.6 % (11.6-14.8) H Platelet Count 351 K/UL (150-450) Mean Platelet Volume 5.1 FL (6.5-10.1) L Neutrophils (%) (Auto) 84.0 % (45.0-75.0) H Lymphocytes (%) (Auto) 7.2 % (20.0-45.0) L Monocytes (%) (Auto) 8.2 % (1.0-10.0) Eosinophils (%) (Auto) 0.2 % (0.0-3.0) Basophils (%) (Auto) 0.4 % (0.0-2.0) Sodium Level 139 MMOL/L (136-145) Potassium Level 3.4 MMOL/L (3.5-5.1) L Chloride Level 105 MMOL/L (98-107) Carbon Dioxide Level 35 MMOL/L (21-32) H Anion Gap -1 mmol/L (5-15) L Blood Urea Nitrogen 11 mg/dL (7-18) Creatinine 0.5 MG/DL (0.55-1.30) L Estimat Glomerular Filtration Rate mL/min (>60) Glucose Level 108 MG/DL (74-106) H Calcium Level 8.0 MG/DL (8.5-10.1) L Total Bilirubin 0.3 MG/DL (0.2-1.0) Aspartate Amino Transf (AST/SGOT) 21 U/L (15-37) Alanine Aminotransferase (ALT/SGPT) 12 U/L (12-78) Alkaline Phosphatase 103 U/L (46-116) Pro-B-Type Natriuretic Peptide 8680 pg/mL (0-125) H Total Protein 4.8 G/DL (6.4-8.2) L Albumin 1.3 G/DL (3.4-5.0) L Globulin 3.5 g/dL Albumin/Globulin Ratio 0.4 (1.0-2.7) L Prothrombin Time Pending Prothromb Time International Ratio Pending Activated Partial Thromboplast Time Pending Rishi Gutierrez MD Apr 03, 2018 11:10
[2018-04-03 11:12] LABS: INR 1.2 (0.9-1.1)
[2018-04-03] MEDS ORDERED: Acetaminophen 650mg/20.3ml PEG PRN ×2 (12:00)
--- NOTE | 2018-04-03 12:11 | Diagnostic Imaging Report ---
Indication: Dyspnea Comparison: 04/02/2018 A single view chest radiograph was obtained. Findings: Signs of pulmonary edema and moderate to large left pleural effusion again noted. Left jugular line unchanged. IMPRESSION: No change management specialist one day
[2018-04-03] MEDS: Ipratropium 0.02% Inh Soln 2.5ml UD HHN PRN ×2 (12:59→19:07)
[2018-04-03] MEDS ORDERED: Acetylcysteine 20% Soln 4ml HHN SCH ×2 (13:00)
--- NOTE | 2018-04-03 13:06 | GI Progress Note ---
Assessment/Plan Problems: (1) Encounter for PEG (percutaneous endoscopic gastrostomy) ICD Codes: Z43.1 - Encounter for attention to gastrostomy SNOMED: 076755617, 115149092 (2) At high risk for aspiration ICD Codes: Z91.89 - Other specified personal risk factors, not elsewhere classified SNOMED: 945873874 (3) Protein-calorie malnutrition, severe ICD Codes: E43 - Unspecified severe protein-calorie malnutrition SNOMED: 819333494 (4) Dysphasia ICD Codes: R47.02 - Dysphasia SNOMED: 94857195 Status: unchanged Status Narrative Discussed with Dr. Velez Assessment/Plan s/p GT placement GTF and care, reported patient is not tolerating her G-tube feedings Increase Reglan to 10 mg ATC, restart feedings at low rate then advance to goal fu labs Follow-up pulmonary recommendations The patient was seen and examined at bedside and all new and available data was reviewed in the patients chart. I agree with the above findings, impression and plan. (Patient seen earlier today. Signature stamp does not reflect patient encounter time.). - Ernesto Velez MD Subjective Subjective Limited Objective Last 24 Hour Vital Signs Date Time Temp Pulse Resp B/P (MAP) Pulse Ox O2 Delivery O2 Flow Rate FiO2 04/03/18 12:59 87 36 100 Bi-pap 50 04/03/18 12:00 Venturi Mask 15.0 Venturi Mask 15.0 04/03/18 10:00 94 19 106/63 (77) 100 04/03/18 09:00 88 18 103/52 (69) 100 04/03/18 08:09 110 04/03/18 08:00 96 04/03/18 08:00 Venturi Mask 15.0 Venturi Mask 15.0 04/03/18 08:00 15.0 45 04/03/18 08:00 99.9 86 28 105/51 (69) 100 04/03/18 07:39 99.9 04/03/18 07:05 92 35 97 Venturi Mask 10.0 45 04/03/18 07:00 100.5 82 26 110/63 (79) 100 04/03/18 06:48 Bi-pap 50 04/03/18 06:48 100 Bi-pap 50 04/03/18 06:48 94 30 100 Bi-pap 50 04/03/18 06:46 94 30 100 Full Face 50 04/03/18 06:00 89 24 97/50 (66) 100 04/03/18 05:21 102 41 98 Full Face 50 04/03/18 05:00 99.8 93 25 103/48 (66) 100 04/03/18 04:00 50 04/03/18 04:00 94 04/03/18 04:00 89 22 97/52 (67) 100 04/03/18 04:00 Bi-pap Bi-pap 04/03/18 03:01 80 36 95 Facial 50 04/03/18 03:00 85 23 97/54 (68) 100 04/03/18 02:00 86 26 101/55 (70) 99 04/03/18 01:18 82 40 93 Full Face 50 04/03/18 01:10 Venturi Mask 14.0 55 04/03/18 01:08 Venturi Mask 14.0 55 04/03/18 01:00 98.7 86 29 97/49 (65) 96 04/03/18 00:00 86 04/03/18 00:00 Venturi Mask 15.0 Venturi Mask 15.0 04/03/18 00:00 15.0 55 04/03/18 00:00 86 28 100/60 (73) 97 04/02/18 23:00 86 31 113/60 (77) 96 04/02/18 22:00 87 35 111/73 (86) 97 04/02/18 21:00 92 36 103/59 (74) 97 04/02/18 20:00 Venturi Mask 14.0 55 04/02/18 20:00 Venturi Mask 15.0 Venturi Mask 15.0 04/02/18 20:00 96 Venturi Mask 14.0 55 04/02/18 20:00 90 04/02/18 20:00 15.0 55 04/02/18 20:00 109 20 97 Venturi Mask 14.0 55 04/02/18 20:00 95 31 110/59 (76) 97 04/02/18 19:50 103 20 95 Venturi Mask 14.0 55 04/02/18 19:00 97.8 98 24 108/62 (77) 97 04/02/18 18:00 98 24 108/62 (77) 97 04/02/18 17:00 81 31 110/57 (74) 97 04/02/18 16:18 15.0 55 04/02/18 16:00 Venturi Mask 15.0 04/02/18 16:00 85 04/02/18 16:00 98.1 88 29 110/71 (84) 96 04/02/18 15:00 76 27 116/66 (83) 98 04/02/18 14:00 79 30 116/66 (83) 96 04/02/18 13:30 89 34 109/55 (73) 95 04/02/18 13:10 Venturi Mask 14.0 55 04/02/18 13:10 Venturi Mask 14.0 55 Intake and Output 04/02/18 04/03/18 18:59 06:59 Intake Total 266.66 ml 450 ml Output Total 1360 ml 240 ml Balance -1093.34 ml 210 ml IV Total 16.66 ml 110 ml Tube Feeding 250 ml 300 ml Other 40 ml Output Urine Total 1260 ml 240 ml Stool Total 100 ml Laboratory Tests Test 04/03/18 04:00 04/03/18 10:50 White Blood Count 13.8 K/UL (4.8-10.8) H Red Blood Count 2.81 M/UL (4.20-5.40) L Hemoglobin 8.6 G/DL (12.0-16.0) L Hematocrit 26.7 % (37.0-47.0) L Mean Corpuscular Volume 95 FL (80-99) Mean Corpuscular Hemoglobin 30.8 PG (27.0-31.0) Mean Corpuscular Hemoglobin Concent 32.4 G/DL (32.0-36.0) Red Cell Distribution Width 15.6 % (11.6-14.8) H Platelet Count 351 K/UL (150-450) Mean Platelet Volume 5.1 FL (6.5-10.1) L Neutrophils (%) (Auto) 84.0 % (45.0-75.0) H Lymphocytes (%) (Auto) 7.2 % (20.0-45.0) L Monocytes (%) (Auto) 8.2 % (1.0-10.0) Eosinophils (%) (Auto) 0.2 % (0.0-3.0) Basophils (%) (Auto) 0.4 % (0.0-2.0) Sodium Level 139 MMOL/L (136-145) Potassium Level 3.4 MMOL/L (3.5-5.1) L Chloride Level 105 MMOL/L (98-107) Carbon Dioxide Level 35 MMOL/L (21-32) H Anion Gap -1 mmol/L (5-15) L Blood Urea Nitrogen 11 mg/dL (7-18) Creatinine 0.5 MG/DL (0.55-1.30) L Estimat Glomerular Filtration Rate mL/min (>60) Glucose Level 108 MG/DL (74-106) H Calcium Level 8.0 MG/DL (8.5-10.1) L Total Bilirubin 0.3 MG/DL (0.2-1.0) Aspartate Amino Transf (AST/SGOT) 21 U/L (15-37) Alanine Aminotransferase (ALT/SGPT) 12 U/L (12-78) Alkaline Phosphatase 103 U/L (46-116) Pro-B-Type Natriuretic Peptide 8680 pg/mL (0-125) H Total Protein 4.8 G/DL (6.4-8.2) L Albumin 1.3 G/DL (3.4-5.0) L Globulin 3.5 g/dL Albumin/Globulin Ratio 0.4 (1.0-2.7) L Prothrombin Time 12.6 SEC (9.30-11.50) H Prothromb Time International Ratio 1.2 (0.9-1.1) H Activated Partial Thromboplast Time 25 SEC (23-33) Height (Feet): 5 Height (Inches): 3.00 Weight (Pounds): 152 General Appearance: no apparent distress, thin Cardiovascular: normal rate Respiratory/Chest: other - Venturi Abdominal Exam: GT site - Clean dry and intact Thaddeus Galeana NP Apr 03, 2018 13:06
[2018-04-03] MEDS ORDERED: Metoclopramide 10mg/10ml Liq GT SCH ×2 (14:00)
--- NOTE | 2018-04-03 14:24 | Infectious Diseases Prog Note ---
Assessment/Plan Assessment/Plan Assessment/Plan Sepsis, resolved 2ry to UTI c/w bacteremia and prob early PNA -u/a wbc tntc, nit neg, luek +3; ucx >100k PsA (R cipro/levo, otherwise S), E. fecalis (S Amp, vanco); repeat u/a 03/29 wbc 30-40, nit eng, leuk +3; ucx yeast so far -03/06 Bcx 4/ P.mirabiis (R cipro, I Levo; otherwise S), 03/21 MRSE ( contaminant); 03/07 Neg; 03/29 Bcx NTD Probable Pneum : -03/31 CXR: Pulmonary edema. Marginal improvement since the last occasion -03/29 CXR: . Persistent prominent interstitial markings, suggesting pulmonary vascular congestion, interstitial edema, or interstitial pneumonitis, not significantly changed. Subsegmental atelectasis versus infiltrates in bilateral lung bases. Possible small pleural effusions. -CXR: Subtle patchy opacities in the right upper lung raising question for developing pneumonia. Clinical correlation/follow-up recommended. -influenza sc neg -sp cx MRSA, C. albicans (Colonizer); 03/29 sp cx MRSA, PSA (R Cefepime, Ceftazidie, Zosyn; S Cipro/levo, Genta, Imi)(prob colonizers) 03/19/17 - CT C/A/P - Bilateral basilar pneumonia versus atelectasis. Small to moderate left pleural effusion and a small right pleural effusion noted. 03/19/18 UCx - Yeast 03/23/18 CXR - B/L consolidation R>L 03/22/09 SpCx - MRSA, P.a. and NF Low grade fever, SP Leukocytosis -recurrent, improving -03/29 CDiff neg FTT HTN Afib dysphagia HLD Dementia contractures Plan: -Continue IV Vanco d# -20 and add Meropenem to cover PsA given fever and leukocytosis -04/01 SP flagyl #12 -03/31 SP Cefepime #27 -03/13 SP IV Vancomycin #7 -03/06 SP Meropenem x1 -Monitor CBC/CMP, temperatures -aspiration precautions Subjective Allergies: Coded Allergies: No Known Allergies (Unverified , 03/06/18) Subjective t, 100.5 wbc 13 transferred from ICU to [facility] on VM 10L Objective Vital Signs Last 24 Hour Vital Signs Date Time Temp Pulse Resp B/P (MAP) Pulse Ox O2 Delivery O2 Flow Rate FiO2 04/03/18 13:18 89 36 96 Venturi Mask 10.0 45 04/03/18 12:59 87 36 100 Bi-pap 50 04/03/18 12:00 98.6 92 28 99/64 (76) 90 04/03/18 12:00 Venturi Mask 15.0 Venturi Mask 15.0 04/03/18 11:49 88 04/03/18 10:00 94 19 106/63 (77) 100 04/03/18 09:00 88 18 103/52 (69) 100 04/03/18 08:09 110 04/03/18 08:00 96 04/03/18 08:00 Venturi Mask 15.0 Venturi Mask 15.0 04/03/18 08:00 15.0 45 04/03/18 08:00 99.9 86 28 105/51 (69) 100 04/03/18 07:39 99.9 04/03/18 07:05 92 35 97 Venturi Mask 10.0 45 04/03/18 07:00 100.5 82 26 110/63 (79) 100 04/03/18 06:48 Bi-pap 50 04/03/18 06:48 100 Bi-pap 50 04/03/18 06:48 94 30 100 Bi-pap 50 04/03/18 06:46 94 30 100 Full Face 50 04/03/18 06:00 89 24 97/50 (66) 100 04/03/18 05:21 102 41 98 Full Face 50 04/03/18 05:00 99.8 93 25 103/48 (66) 100 04/03/18 04:00 50 04/03/18 04:00 94 04/03/18 04:00 89 22 97/52 (67) 100 04/03/18 04:00 Bi-pap Bi-pap 04/03/18 03:01 80 36 95 Facial 50 04/03/18 03:00 85 23 97/54 (68) 100 04/03/18 02:00 86 26 101/55 (70) 99 04/03/18 01:18 82 40 93 Full Face 50 04/03/18 01:10 Venturi Mask 14.0 55 04/03/18 01:08 Venturi Mask 14.0 55 04/03/18 01:00 98.7 86 29 97/49 (65) 96 04/03/18 00:00 86 04/03/18 00:00 Venturi Mask 15.0 Venturi Mask 15.0 04/03/18 00:00 15.0 55 04/03/18 00:00 86 28 100/60 (73) 97 04/02/18 23:00 86 31 113/60 (77) 96 04/02/18 22:00 87 35 111/73 (86) 97 04/02/18 21:00 92 36 103/59 (74) 97 04/02/18 20:00 Venturi Mask 14.0 55 04/02/18 20:00 Venturi Mask 15.0 Venturi Mask 15.0 04/02/18 20:00 96 Venturi Mask 14.0 55 04/02/18 20:00 90 04/02/18 20:00 15.0 55 04/02/18 20:00 109 20 97 Venturi Mask 14.0 55 04/02/18 20:00 95 31 110/59 (76) 97 04/02/18 19:50 103 20 95 Venturi Mask 14.0 55 04/02/18 19:00 97.8 98 24 108/62 (77) 97 04/02/18 18:00 98 24 108/62 (77) 97 04/02/18 17:00 81 31 110/57 (74) 97 04/02/18 16:18 15.0 55 04/02/18 16:00 Venturi Mask 15.0 04/02/18 16:00 85 04/02/18 16:00 98.1 88 29 110/71 (84) 96 04/02/18 15:00 76 27 116/66 (83) 98 Height (Feet): 5 Height (Inches): 3.00 Weight (Pounds): 152 Objective General Appearance: no apparent distress, alert, GCS 15, non-toxic, other - frail, elderly, chronically ill, contracted, non-verbal, Chronically Ill HEENT: normocephalic, atraumatic, bilateral eye normal inspection, bilateral eye PERRL Respiratory: chest non-tender, lungs clear, normal breath sounds, no respiratory distress, no retraction, no accessory muscle use, speaking full sentences Cardiovascular : no edema, tachycardia, systolic murmur, irregularly irregular Gastrointestinal: normal bowel sounds, non tender, soft, non-distended, no guarding, no rebound, other - colostomy bag in place. Musculoskeletal: back normal, gait/station normal, normal range of motion, non- tender Neurologic: alert, other - non-focal. Contracted, non-verbal Skin: no rash, warm/dry, well hydrated, other - Multiple DU Microbiology Date/Time Source Procedure Growth Status 03/31/18 15:25 Blood Blood Culture - Preliminary NO GROWTH AFTER 48 HOURS Resulted 03/31/18 15:18 Blood Blood Culture - Preliminary NO GROWTH AFTER 48 HOURS Resulted Laboratory Tests Test 04/03/18 04:00 04/03/18 10:50 White Blood Count 13.8 K/UL (4.8-10.8) H Red Blood Count 2.81 M/UL (4.20-5.40) L Hemoglobin 8.6 G/DL (12.0-16.0) L Hematocrit 26.7 % (37.0-47.0) L Mean Corpuscular Volume 95 FL (80-99) Mean Corpuscular Hemoglobin 30.8 PG (27.0-31.0) Mean Corpuscular Hemoglobin Concent 32.4 G/DL (32.0-36.0) Red Cell Distribution Width 15.6 % (11.6-14.8) H Platelet Count 351 K/UL (150-450) Mean Platelet Volume 5.1 FL (6.5-10.1) L Neutrophils (%) (Auto) 84.0 % (45.0-75.0) H Lymphocytes (%) (Auto) 7.2 % (20.0-45.0) L Monocytes (%) (Auto) 8.2 % (1.0-10.0) Eosinophils (%) (Auto) 0.2 % (0.0-3.0) Basophils (%) (Auto) 0.4 % (0.0-2.0) Sodium Level 139 MMOL/L (136-145) Potassium Level 3.4 MMOL/L (3.5-5.1) L Chloride Level 105 MMOL/L (98-107) Carbon Dioxide Level 35 MMOL/L (21-32) H Anion Gap -1 mmol/L (5-15) L Blood Urea Nitrogen 11 mg/dL (7-18) Creatinine 0.5 MG/DL (0.55-1.30) L Estimat Glomerular Filtration Rate mL/min (>60) Glucose Level 108 MG/DL (74-106) H Calcium Level 8.0 MG/DL (8.5-10.1) L Total Bilirubin 0.3 MG/DL (0.2-1.0) Aspartate Amino Transf (AST/SGOT) 21 U/L (15-37) Alanine Aminotransferase (ALT/SGPT) 12 U/L (12-78) Alkaline Phosphatase 103 U/L (46-116) Pro-B-Type Natriuretic Peptide 8680 pg/mL (0-125) H Total Protein 4.8 G/DL (6.4-8.2) L Albumin 1.3 G/DL (3.4-5.0) L Globulin 3.5 g/dL Albumin/Globulin Ratio 0.4 (1.0-2.7) L Prothrombin Time 12.6 SEC (9.30-11.50) H Prothromb Time International Ratio 1.2 (0.9-1.1) H Activated Partial Thromboplast Time 25 SEC (23-33) Current Medications Medications (Trade) Dose Ordered Sig/Cele Route PRN Reason Start Time Stop Time Status Last Admin Dose Admin Acetaminophen (Tylenol) 650 mg Q4H PRN PEG fever (temp>100.5F) 04/03/18 11:00 04/17/18 10:59 Acetylcysteine (Mucomyst) 200 mg Q6HRT HHN 04/03/18 13:00 05/03/18 12:59 04/03/18 12:59 Amiodarone HCl (Cordarone) 200 mg DAILY ORAL 04/04/18 09:00 05/04/18 08:59 Chlorhexidine Gluconate (Sahra-Hex 2%) 1 applic DAILY@2000 TOPIC 04/03/18 20:00 04/13/18 19:59 Digoxin (Lanoxin) 0.125 mg DAILY IVP 04/04/18 09:00 04/29/18 08:59 Ipratropium [place] (Atrovent) 500 mcg Q4H PRN HHN Shortness of Breath 04/03/18 11:00 04/08/18 10:59 04/03/18 12:59 Metoclopramide HCl (Reglan) 10 mg EVERY 8 HOURS GT 04/03/18 14:00 05/02/18 13:59 04/03/18 13:59 Olanzapine (ZyPREXA) 2.5 mg Q6H PRN GT agitation 04/03/18 11:00 04/07/18 10:59 Pantoprazole (Protonix) 40 mg EVERY 12 HOURS IVP 04/03/18 21:00 04/26/18 20:59 Polyethylene Glycol (Miralax) 17 gm DAILYPRN PRN GT Constipation 04/03/18 11:00 04/22/18 10:59 Potassium Chloride 100 ml @ 100 mls/hr Q1HR IVPB 04/03/18 11:00 04/03/18 14:59 04/03/18 13:59 Tamsulosin HCl (Flomax) 0.4 mg BEDTIME ORAL 04/03/18 21:00 04/05/18 20:59 Vancomycin HCl (Vanco rx to dose) 1 ea DAILY PRN MISC Per rx protocol 04/03/18 11:00 05/03/18 10:59 Vancomycin HCl 500 mg/Dextrose 110 ml @ 110 mls/hr Q12HR@0800,2000 IVPB 04/03/18 20:00 04/07/18 23:59 Sussy Daniel M.D. Apr 03, 2018 14:24
[2018-04-03] MEDS: Meropenem 1 GM in NS 55 ML IVPB SCH (16:38)
--- NOTE | 2018-04-03 16:38 | Cardiac Electrophysiology PN ---
Assessment/Plan Status Narrative Technically difficult study due to patient was contracted. Study quality precludes accurate assessment of regional wall motion. Normal left ventricular chamber size, systolic function and wall motion. Left ventricular ejection fraction estimated to be 60-65 %. Mild left ventricular hypertrophy. Small circumferential pericardial effusion. Mild left atrial enlargement. Right cardiac chamber sizes are within normal limits. Aortic valve calcification with decreased cusp excursion c/w aortic stenosis. Mildly thickened mitral valve leaflets with normal excursion. Moderate mitral annulus and aortic root calcification. Normal pulmonic valve structure. Normal tricuspid valve structure. Subcostal views not obtainable due to G tube. Assessment/Plan 1. Paroxysmal atrial fibrillation with rapid ventricular response. Off Cardizem drip as BP dropped to 70s. Echo EF 65%. On Digoxin 0.125 iv daily and Amio GT 2. Urosepsis. On IV antibiotic per ID. 3. Hypotension, off levophed and on IV fluid. 4. Sacral decubitus ulcer. 5. Dementia. 6. Dysphagia. S/P G-tube placement 03/21/17 KEIRY RN Subjective Subjective Transferred out of ICU in atrial fib but rate is better controlled. Objective Last 24 Hour Vital Signs Date Time Temp Pulse Resp B/P (MAP) Pulse Ox O2 Delivery O2 Flow Rate FiO2 04/03/18 16:00 Venturi Mask 15.0 Venturi Mask 15.0 04/03/18 13:18 89 36 96 Venturi Mask 10.0 45 04/03/18 12:59 87 36 100 Bi-pap 50 04/03/18 12:00 98.6 92 28 99/64 (76) 90 04/03/18 12:00 Venturi Mask 15.0 Venturi Mask 15.0 04/03/18 11:49 88 04/03/18 10:00 94 19 106/63 (77) 100 04/03/18 09:00 88 18 103/52 (69) 100 04/03/18 08:09 110 04/03/18 08:00 96 04/03/18 08:00 Venturi Mask 15.0 Venturi Mask 15.0 04/03/18 08:00 15.0 45 04/03/18 08:00 99.9 86 28 105/51 (69) 100 04/03/18 07:39 99.9 04/03/18 07:05 92 35 97 Venturi Mask 10.0 45 04/03/18 07:00 100.5 82 26 110/63 (79) 100 04/03/18 06:48 Bi-pap 50 04/03/18 06:48 100 Bi-pap 50 04/03/18 06:48 94 30 100 Bi-pap 50 04/03/18 06:46 94 30 100 Full Face 50 04/03/18 06:00 89 24 97/50 (66) 100 04/03/18 05:21 102 41 98 Full Face 50 04/03/18 05:00 99.8 93 25 103/48 (66) 100 04/03/18 04:00 50 04/03/18 04:00 94 04/03/18 04:00 89 22 97/52 (67) 100 04/03/18 04:00 Bi-pap Bi-pap 04/03/18 03:01 80 36 95 Facial 50 04/03/18 03:00 85 23 97/54 (68) 100 04/03/18 02:00 86 26 101/55 (70) 99 04/03/18 01:18 82 40 93 Full Face 50 04/03/18 01:10 Venturi Mask 14.0 55 04/03/18 01:08 Venturi Mask 14.0 55 04/03/18 01:00 98.7 86 29 97/49 (65) 96 04/03/18 00:00 86 04/03/18 00:00 Venturi Mask 15.0 Venturi Mask 15.0 04/03/18 00:00 15.0 55 04/03/18 00:00 86 28 100/60 (73) 97 04/02/18 23:00 86 31 113/60 (77) 96 04/02/18 22:00 87 35 111/73 (86) 97 04/02/18 21:00 92 36 103/59 (74) 97 04/02/18 20:00 Venturi Mask 14.0 55 04/02/18 20:00 Venturi Mask 15.0 Venturi Mask 15.0 04/02/18 20:00 96 Venturi Mask 14.0 55 04/02/18 20:00 90 04/02/18 20:00 15.0 55 04/02/18 20:00 109 20 97 Venturi Mask 14.0 55 04/02/18 20:00 95 31 110/59 (76) 97 04/02/18 19:50 103 20 95 Venturi Mask 14.0 55 04/02/18 19:00 97.8 98 24 108/62 (77) 97 04/02/18 18:00 98 24 108/62 (77) 97 04/02/18 17:00 81 31 110/57 (74) 97 Intake and Output 04/02/18 04/03/18 19:00 07:00 Intake Total 250 ml 440 ml Output Total 1330 ml 240 ml Balance -1080 ml 200 ml IV Total 110 ml Tube Feeding 250 ml 290 ml Other 40 ml Output Urine Total 1230 ml 240 ml Stool Total 100 ml Laboratory Tests Test 04/03/18 04:00 04/03/18 10:50 White Blood Count 13.8 K/UL (4.8-10.8) H Red Blood Count 2.81 M/UL (4.20-5.40) L Hemoglobin 8.6 G/DL (12.0-16.0) L Hematocrit 26.7 % (37.0-47.0) L Mean Corpuscular Volume 95 FL (80-99) Mean Corpuscular Hemoglobin 30.8 PG (27.0-31.0) Mean Corpuscular Hemoglobin Concent 32.4 G/DL (32.0-36.0) Red Cell Distribution Width 15.6 % (11.6-14.8) H Platelet Count 351 K/UL (150-450) Mean Platelet Volume 5.1 FL (6.5-10.1) L Neutrophils (%) (Auto) 84.0 % (45.0-75.0) H Lymphocytes (%) (Auto) 7.2 % (20.0-45.0) L Monocytes (%) (Auto) 8.2 % (1.0-10.0) Eosinophils (%) (Auto) 0.2 % (0.0-3.0) Basophils (%) (Auto) 0.4 % (0.0-2.0) Sodium Level 139 MMOL/L (136-145) Potassium Level 3.4 MMOL/L (3.5-5.1) L Chloride Level 105 MMOL/L (98-107) Carbon Dioxide Level 35 MMOL/L (21-32) H Anion Gap -1 mmol/L (5-15) L Blood Urea Nitrogen 11 mg/dL (7-18) Creatinine 0.5 MG/DL (0.55-1.30) L Estimat Glomerular Filtration Rate mL/min (>60) Glucose Level 108 MG/DL (74-106) H Calcium Level 8.0 MG/DL (8.5-10.1) L Total Bilirubin 0.3 MG/DL (0.2-1.0) Aspartate Amino Transf (AST/SGOT) 21 U/L (15-37) Alanine Aminotransferase (ALT/SGPT) 12 U/L (12-78) Alkaline Phosphatase 103 U/L (46-116) Pro-B-Type Natriuretic Peptide 8680 pg/mL (0-125) H Total Protein 4.8 G/DL (6.4-8.2) L Albumin 1.3 G/DL (3.4-5.0) L Globulin 3.5 g/dL Albumin/Globulin Ratio 0.4 (1.0-2.7) L Prothrombin Time 12.6 SEC (9.30-11.50) H Prothromb Time International Ratio 1.2 (0.9-1.1) H Activated Partial Thromboplast Time 25 SEC (23-33) Objective HEAD AND NECK: No JVD. LUNGS: Coarse rhonchi bilaterally. CARDIOVASCULAR: Irregular S1 and S2 with no gallop. ABDOMEN: Status post colostomy. GT in place EXTREMITIES: No pitting edema Fredrick uBrk MD Apr 03, 2018 16:38
--- NOTE | 2018-04-03 17:33 | Internal Med Progress Note ---
Subjective Date of Service: Apr 03, 2018 Physician Name Shankar Betts Attending Physician Davian Scott MD Current Medications Medications (Trade) Dose Ordered Sig/Cele Route PRN Reason Start Time Stop Time Status Last Admin Dose Admin Acetaminophen (Tylenol) 650 mg Q4H PRN PEG fever (temp>100.5F) 04/03/18 11:00 04/17/18 10:59 Acetylcysteine (Mucomyst) 200 mg Q6HRT HHN 04/03/18 13:00 05/03/18 12:59 04/03/18 12:59 Amiodarone HCl (Cordarone) 200 mg DAILY ORAL 04/04/18 09:00 05/04/18 08:59 Chlorhexidine Gluconate (Sahra-Hex 2%) 1 applic DAILY@2000 TOPIC 04/03/18 20:00 04/13/18 19:59 Digoxin (Lanoxin) 0.125 mg DAILY IVP 04/04/18 09:00 04/29/18 08:59 Ipratropium [place] (Atrovent) 500 mcg Q4H PRN HHN Shortness of Breath 04/03/18 11:00 04/08/18 10:59 04/03/18 12:59 Meropenem 1 gm/ Sodium Chloride 55 ml @ 110 mls/hr Q12H IVPB 04/03/18 17:00 04/08/18 16:59 04/03/18 16:38 Metoclopramide HCl (Reglan) 10 mg EVERY 8 HOURS GT 04/03/18 14:00 05/02/18 13:59 04/03/18 13:59 Olanzapine (ZyPREXA) 2.5 mg Q6H PRN GT agitation 04/03/18 11:00 04/07/18 10:59 Pantoprazole (Protonix) 40 mg EVERY 12 HOURS IVP 04/03/18 21:00 04/26/18 20:59 Polyethylene Glycol (Miralax) 17 gm DAILYPRN PRN GT Constipation 04/03/18 11:00 04/22/18 10:59 Tamsulosin HCl (Flomax) 0.4 mg BEDTIME ORAL 04/03/18 21:00 04/05/18 20:59 Vancomycin HCl (Vanco rx to dose) 1 ea DAILY PRN MISC Per rx protocol 04/03/18 11:00 05/03/18 10:59 Vancomycin HCl 500 mg/Dextrose 110 ml @ 110 mls/hr Q12HR@0800,2000 IVPB 04/03/18 20:00 04/07/18 23:59 Allergies: Coded Allergies: No Known Allergies (Unverified , 03/06/18) ROS Limited/Unobtainable: Yes Subjective 87 YO F admitted with hematuria and gen weakness. Now pyelonephritis respiratory distress and sepsis. Cover for Int Med-Dr Scott. [facility]. On levophed ; Tolerating venturi mask. Afib with RVR Objective Last Vital Signs Date Time Temp Pulse Resp B/P (MAP) Pulse Ox O2 Delivery O2 Flow Rate FiO2 04/03/18 16:00 93 04/03/18 16:00 Venturi Mask 15.0 Venturi Mask 15.0 04/03/18 16:00 98.2 30 110/82 (91) 92 04/03/18 13:18 45 Laboratory Tests Test 04/03/18 04:00 04/03/18 10:50 White Blood Count 13.8 K/UL (4.8-10.8) H Red Blood Count 2.81 M/UL (4.20-5.40) L Hemoglobin 8.6 G/DL (12.0-16.0) L Hematocrit 26.7 % (37.0-47.0) L Mean Corpuscular Volume 95 FL (80-99) Mean Corpuscular Hemoglobin 30.8 PG (27.0-31.0) Mean Corpuscular Hemoglobin Concent 32.4 G/DL (32.0-36.0) Red Cell Distribution Width 15.6 % (11.6-14.8) H Platelet Count 351 K/UL (150-450) Mean Platelet Volume 5.1 FL (6.5-10.1) L Neutrophils (%) (Auto) 84.0 % (45.0-75.0) H Lymphocytes (%) (Auto) 7.2 % (20.0-45.0) L Monocytes (%) (Auto) 8.2 % (1.0-10.0) Eosinophils (%) (Auto) 0.2 % (0.0-3.0) Basophils (%) (Auto) 0.4 % (0.0-2.0) Sodium Level 139 MMOL/L (136-145) Potassium Level 3.4 MMOL/L (3.5-5.1) L Chloride Level 105 MMOL/L (98-107) Carbon Dioxide Level 35 MMOL/L (21-32) H Anion Gap -1 mmol/L (5-15) L Blood Urea Nitrogen 11 mg/dL (7-18) Creatinine 0.5 MG/DL (0.55-1.30) L Estimat Glomerular Filtration Rate mL/min (>60) Glucose Level 108 MG/DL (74-106) H Calcium Level 8.0 MG/DL (8.5-10.1) L Total Bilirubin 0.3 MG/DL (0.2-1.0) Aspartate Amino Transf (AST/SGOT) 21 U/L (15-37) Alanine Aminotransferase (ALT/SGPT) 12 U/L (12-78) Alkaline Phosphatase 103 U/L (46-116) Pro-B-Type Natriuretic Peptide 8680 pg/mL (0-125) H Total Protein 4.8 G/DL (6.4-8.2) L Albumin 1.3 G/DL (3.4-5.0) L Globulin 3.5 g/dL Albumin/Globulin Ratio 0.4 (1.0-2.7) L Prothrombin Time 12.6 SEC (9.30-11.50) H Prothromb Time International Ratio 1.2 (0.9-1.1) H Activated Partial Thromboplast Time 25 SEC (23-33) Intake and Output 04/02/18 04/03/18 19:00 07:00 Intake Total 250 ml 440 ml Output Total 1330 ml 240 ml Balance -1080 ml 200 ml IV Total 110 ml Tube Feeding 250 ml 290 ml Other 40 ml Output Urine Total 1230 ml 240 ml Stool Total 100 ml Objective PHYSICAL EXAMINATION: GENERAL: The patient is a well-developed and well-nourished white female, in no apparent distress. HEENT: Eyes, pupils are equal and responsive to light and accommodation. Extraocular movements are intact. NECK: Supple without lymphadenopathy. CHEST: venturi mask; crackles and rales at bases; Decreased breath sounds at bilateral bases. Otherwise, clear to auscultation without wheezes or rales. CARDIOVASCULAR: Tachycardic. Regular rate and rhythm. S1, S2 are normal without murmurs, rubs, or gallops. ABDOMEN: Soft, nontender, and nondistended. Positive bowel sounds. No evidence of hepatosplenomegaly. Currently, no rebound or guarding noted. EXTREMITIES: Negative for clubbing, cyanosis, or edema. RECTAL/GENITAL: Deferred. NEUROLOGIC: Cranial nerves II through XII are grossly intact without focal deficits. Assessment/Plan Problem List: (1) Pyelonephritis Assessment & Plan: Pseudamonas and strep. See ID note-Continue meropenem and vanco (2) Sepsis (3) HTN (hypertension) Assessment & Plan: Currently hypotensive (4) Hypercholesteremia (5) Sacral decubitus ulcer, stage IV Assessment & Plan: See surgery note-dr Ramsay (6) Urinary tract infection Assessment & Plan: pseudamonas; continue cefepime per ID (7) Pneumonia Assessment & Plan: New RLL. Previously MRSA. Continue vanco and meropenem per ID (8) Atrial fibrillation with RVR Assessment & Plan: Continue digoxin and amiodrone per cardiology (9) Respiratory distress Assessment & Plan: On venturi mask Status: not improved Assessment/Plan prognosis guarded-hospice Shankar Allred MD Apr 03, 2018 17:33
[2018-04-03] MEDS ORDERED: Dyna-Hex 2% Top Sol 2oz TOPIC SCH ×2 (20:00)
[2018-04-03] MEDS: Vancomycin 500 MG in D5W 110 ML IVPB SCH (20:34)
[2018-04-03] MEDS: Tamsulosin 0.4mg cap ORAL SCH (20:34)
[2018-04-03] MEDS: Dyna-Hex 2% Top Sol 2oz TOPIC SCH (20:34)
[2018-04-03] MEDS ORDERED: Pantoprazole Inj IVP SCH ×2 (21:00)
[2018-04-03] MEDS ORDERED: Tamsulosin 0.4mg cap ORAL SCH ×2 (21:00)
[2018-04-04] VITALS: BP 100/60
[2018-04-04] MEDS: Ipratropium 0.02% Inh Soln 2.5ml UD HHN PRN ×4 (01:06→19:38)
[2018-04-04] MEDS: Acetylcysteine 20% Soln 4ml HHN SCH ×4 (01:07→19:39)
[2018-04-04 04:00] VITALS: BP 123/51
[2018-04-04] MEDS: Meropenem 1 GM in NS 55 ML IVPB SCH ×2 (05:17→17:12)
[2018-04-04] MEDS: Metoclopramide 10mg/10ml Liq GT SCH ×3 (05:17→21:45)
[2018-04-04 07:30] LABS: BASOPHILS % (AUTO) 0.8 % (0.0-2.0); EOSINOPHILS % (AUTO) 0.3 % (0.0-3.0); HEMATOCRIT 27.6 % (37.0-47.0); HEMOGLOBIN 8.7 G/DL (12.0-16.0); LYMPHOCYTES % (AUTO) 11.4 % (20.0-45.0); MEAN CORPUSCULAR VOLUME 96 FL (80-99); MONOCYTES % (AUTO) 8.1 % (1.0-10.0); NEUTROPHILS % (AUTO) 79.4 % (45.0-75.0); PLATELET COUNT 317 K/UL (150-450); RED BLOOD COUNT 2.88 M/UL (4.20-5.40); RED CELL DISTRIBUTION WIDTH 15.7 % (11.6-14.8); WHITE BLOOD COUNT 12.2 K/UL (4.8-10.8)
[2018-04-04 07:55] LABS: ALANINE AMINOTRANSFERASE 9 U/L (12-78); ALBUMIN 1.2 G/DL (3.4-5.0); ALBUMIN/GLOBULIN RATIO 0.4 (1.0-2.7); ALKALINE PHOSPHATASE 94 U/L (46-116); ANION GAP 2 mmol/L (5-15); ASPARTATE AMINO TRANSFERASE 18 U/L (15-37); BILIRUBIN,TOTAL 0.4 MG/DL (0.2-1.0); BLOOD UREA NITROGEN 14 mg/dL (7-18); CARBON DIOXIDE 33 MMOL/L (21-32); CHLORIDE 105 MMOL/L (98-107); CREATININE 0.5 MG/DL (0.55-1.30); POTASSIUM 4.1 MMOL/L (3.5-5.1); SODIUM 140 MMOL/L (136-145)
[2018-04-04 07:58] VITALS: BP 111/67
[2018-04-04] MEDS: Pantoprazole Inj IVP SCH ×2 (08:26→20:14)
[2018-04-04] MEDS: Amiodarone 200mg tab ORAL SCH (08:26)
[2018-04-04] MEDS: Digoxin 0.5mg/2ml Inj IVP SCH (08:29)
[2018-04-04] MEDS ORDERED: Amiodarone 200mg tab ORAL SCH ×2 (09:00)
[2018-04-04] MEDS ORDERED: Digoxin 0.5mg/2ml Inj IVP SCH ×2 (09:00)
[2018-04-04] MEDS: Vancomycin 500 MG in D5W 110 ML IVPB SCH ×2 (09:11→20:13)
--- NOTE | 2018-04-04 11:23 | GI Progress Note ---
Assessment/Plan Problems: (1) Encounter for PEG (percutaneous endoscopic gastrostomy) ICD Codes: Z43.1 - Encounter for attention to gastrostomy SNOMED: 445164623, 468494812 (2) At high risk for aspiration ICD Codes: Z91.89 - Other specified personal risk factors, not elsewhere classified SNOMED: 118093029 (3) Protein-calorie malnutrition, severe ICD Codes: E43 - Unspecified severe protein-calorie malnutrition SNOMED: 235741968 (4) Dysphasia ICD Codes: R47.02 - Dysphasia SNOMED: 92384965 Status: progressing Status Narrative Discussed with Dr. Velez Assessment/Plan s/p GT placement GTF and care, reported patient is not tolerating her G-tube feedings Increase Reglan to 10 mg ATC, restart feedings at low rate then advance to goal fu labs Follow-up pulmonary recommendations The patient was seen and examined at bedside and all new and available data was reviewed in the patients chart. I agree with the above findings, impression and plan. (Patient seen earlier today. Signature stamp does not reflect patient encounter time.). - Ernesto Velez MD Subjective Subjective Limited Objective Last 24 Hour Vital Signs Date Time Temp Pulse Resp B/P (MAP) Pulse Ox O2 Delivery O2 Flow Rate FiO2 04/04/18 08:29 100 04/04/18 08:00 Venturi Mask 15.0 Venturi Mask 15.0 04/04/18 08:00 98 04/04/18 07:58 99.0 100 22 111/67 (82) 100 04/04/18 07:31 101 28 100 Bi-pap 40 04/04/18 07:21 101 30 99 Bi-pap 40 04/04/18 07:20 99 Bi-pap 40 04/04/18 07:20 Bi-pap 40 04/04/18 05:05 103 19 98 Full Face 40 04/04/18 04:00 40 04/04/18 04:00 104 04/04/18 04:00 Venturi Mask 15.0 Venturi Mask 15.0 04/04/18 04:00 98.0 63 18 123/51 (75) 95 04/04/18 03:41 101 24 100 Full Face 40 04/04/18 01:24 106 27 100 Bi-pap 40 04/04/18 01:07 98 21 99 Bi-pap 40 04/04/18 01:05 98 23 99 Full Face 40 04/04/18 00:00 Venturi Mask 15.0 Venturi Mask 15.0 04/04/18 00:00 101 04/04/18 00:00 98.2 100 22 100/60 (73) 98 04/04/18 00:00 40 04/03/18 23:16 100 23 98 Full Face 40 04/03/18 20:40 78 26 96 Full Face 50 04/03/18 20:00 88 04/03/18 20:00 Venturi Mask 15.0 Venturi Mask 15.0 04/03/18 20:00 98.2 83 24 128/66 (86) 94 04/03/18 20:00 40 04/03/18 19:22 81 24 97 Venturi Mask 10.0 45 04/03/18 19:07 Venturi Mask 10.0 45 04/03/18 19:07 81 24 93 Venturi Mask 10.0 45 04/03/18 19:07 93 Venturi Mask 10.0 45 04/03/18 16:00 93 04/03/18 16:00 Venturi Mask 15.0 Venturi Mask 15.0 04/03/18 16:00 98.2 94 30 110/82 (91) 92 04/03/18 13:18 89 36 96 Venturi Mask 10.0 45 04/03/18 12:59 87 36 100 Bi-pap 50 04/03/18 12:00 98.6 92 28 99/64 (76) 90 04/03/18 12:00 Venturi Mask 15.0 Venturi Mask 15.0 04/03/18 11:49 88 Intake and Output 04/03/18 04/04/18 18:59 06:59 Intake Total 335 ml 450 ml Output Total 430 ml 250 ml Balance -95 ml 200 ml Intake Free Water 100 ml 100 ml IV Total 55 ml 110 ml Tube Feeding 180 ml 240 ml Output Urine Total 280 ml 250 ml Stool Total 150 ml # Bowel Movements 50 Laboratory Tests Test 04/04/18 04:35 White Blood Count 12.2 K/UL (4.8-10.8) H Red Blood Count 2.88 M/UL (4.20-5.40) L Hemoglobin 8.7 G/DL (12.0-16.0) L Hematocrit 27.6 % (37.0-47.0) L Mean Corpuscular Volume 96 FL (80-99) Mean Corpuscular Hemoglobin 30.4 PG (27.0-31.0) Mean Corpuscular Hemoglobin Concent 31.7 G/DL (32.0-36.0) L Red Cell Distribution Width 15.7 % (11.6-14.8) H Platelet Count 317 K/UL (150-450) Mean Platelet Volume 4.8 FL (6.5-10.1) L Neutrophils (%) (Auto) 79.4 % (45.0-75.0) H Lymphocytes (%) (Auto) 11.4 % (20.0-45.0) L Monocytes (%) (Auto) 8.1 % (1.0-10.0) Eosinophils (%) (Auto) 0.3 % (0.0-3.0) Basophils (%) (Auto) 0.8 % (0.0-2.0) Sodium Level 140 MMOL/L (136-145) Potassium Level 4.1 MMOL/L (3.5-5.1) Chloride Level 105 MMOL/L (98-107) Carbon Dioxide Level 33 MMOL/L (21-32) H Anion Gap 2 mmol/L (5-15) L Blood Urea Nitrogen 14 mg/dL (7-18) Creatinine 0.5 MG/DL (0.55-1.30) L Estimat Glomerular Filtration Rate mL/min (>60) Glucose Level 108 MG/DL (74-106) H Calcium Level 8.0 MG/DL (8.5-10.1) L Total Bilirubin 0.4 MG/DL (0.2-1.0) Aspartate Amino Transf (AST/SGOT) 18 U/L (15-37) Alanine Aminotransferase (ALT/SGPT) 9 U/L (12-78) L Alkaline Phosphatase 94 U/L (46-116) Pro-B-Type Natriuretic Peptide 8961 pg/mL (0-125) H Total Protein 4.6 G/DL (6.4-8.2) L Albumin 1.2 G/DL (3.4-5.0) L Globulin 3.4 g/dL Albumin/Globulin Ratio 0.4 (1.0-2.7) L Height (Feet): 5 Height (Inches): 3.00 Weight (Pounds): 151 General Appearance: WD/WN, no apparent distress, alert, thin Cardiovascular: normal rate Respiratory/Chest: no respiratory distress Abdominal Exam: normal bowel sounds, non tender, soft, GT site - Clean dry and intact Extremities: non-tender Thaddeus Galeana NP Apr 04, 2018 11:23
--- NOTE | 2018-04-04 11:47 | Pulmonology Progress Note ---
Assessment/Plan Problems: (1) Pneumonia (2) Sepsis (3) Atrial fibrillation with RVR (4) Sacral decubitus ulcer, stage IV (5) At high risk for aspiration (6) Protein-calorie malnutrition, severe Assessment/Plan iv abx iv fluids titrate fio2 to sat of 92% check electrolytes all reviewed dvt prophylaxis pt needs thoracentesis b/o large left pleural effusion and nobody can reach the pts son. therefore two of the physicians will sign the consent. Subjective ROS Limited/Unobtainable: No Constitutional: Reports: no symptoms HEENT: Repors: no symptoms Respiratory: Reports: other Cardiovascular: Reports: no symptoms Allergies: Coded Allergies: No Known Allergies (Unverified , 03/06/18) Objective Last 24 Hour Vital Signs Date Time Temp Pulse Resp B/P (MAP) Pulse Ox O2 Delivery O2 Flow Rate FiO2 04/04/18 08:29 100 04/04/18 08:00 Venturi Mask 15.0 Venturi Mask 15.0 04/04/18 08:00 98 04/04/18 07:58 99.0 100 22 111/67 (82) 100 04/04/18 07:31 101 28 100 Bi-pap 40 04/04/18 07:21 101 30 99 Bi-pap 40 04/04/18 07:20 99 Bi-pap 40 04/04/18 07:20 Bi-pap 40 04/04/18 05:05 103 19 98 Full Face 40 04/04/18 04:00 40 04/04/18 04:00 104 04/04/18 04:00 Venturi Mask 15.0 Venturi Mask 15.0 04/04/18 04:00 98.0 63 18 123/51 (75) 95 04/04/18 03:41 101 24 100 Full Face 40 04/04/18 01:24 106 27 100 Bi-pap 40 04/04/18 01:07 98 21 99 Bi-pap 40 04/04/18 01:05 98 23 99 Full Face 40 04/04/18 00:00 Venturi Mask 15.0 Venturi Mask 15.0 04/04/18 00:00 101 04/04/18 00:00 98.2 100 22 100/60 (73) 98 04/04/18 00:00 40 04/03/18 23:16 100 23 98 Full Face 40 04/03/18 20:40 78 26 96 Full Face 50 04/03/18 20:00 88 04/03/18 20:00 Venturi Mask 15.0 Venturi Mask 15.0 04/03/18 20:00 98.2 83 24 128/66 (86) 94 04/03/18 20:00 40 04/03/18 19:22 81 24 97 Venturi Mask 10.0 45 04/03/18 19:07 Venturi Mask 10.0 45 04/03/18 19:07 81 24 93 Venturi Mask 10.0 45 04/03/18 19:07 93 Venturi Mask 10.0 45 04/03/18 16:00 93 04/03/18 16:00 Venturi Mask 15.0 Venturi Mask 15.0 04/03/18 16:00 98.2 94 30 110/82 (91) 92 04/03/18 13:18 89 36 96 Venturi Mask 10.0 45 04/03/18 12:59 87 36 100 Bi-pap 50 04/03/18 12:00 98.6 92 28 99/64 (76) 90 04/03/18 12:00 Venturi Mask 15.0 Venturi Mask 15.0 04/03/18 11:49 88 Intake and Output 04/03/18 04/04/18 18:59 06:59 Intake Total 335 ml 450 ml Output Total 430 ml 250 ml Balance -95 ml 200 ml Intake Free Water 100 ml 100 ml IV Total 55 ml 110 ml Tube Feeding 180 ml 240 ml Output Urine Total 280 ml 250 ml Stool Total 150 ml # Bowel Movements 50 Objective General Appearance: WD/WN HEENT: normocephalic, atraumatic Respiratory/Chest: chest wall non-tender, lungs clear Cardiovascular: normal peripheral pulses Abdomen: normal bowel sounds, G Tube in place Genitourinary: normal external genitalia Skin: no rash Laboratory Tests 04/04/18 04:35: White Blood Count 12.2H, Red Blood Count 2.88L, Hemoglobin 8.7L, Hematocrit 27.6L, Mean Corpuscular Volume 96, Mean Corpuscular Hemoglobin 30.4, Mean Corpuscular Hemoglobin Concent 31.7L, Red Cell Distribution Width 15.7H, Platelet Count 317, Mean Platelet Volume 4.8L, Neutrophils (%) (Auto) 79.4H, Lymphocytes (%) (Auto) 11.4L, Monocytes (%) (Auto) 8.1, Eosinophils (%) (Auto) 0.3, Basophils (%) (Auto) 0.8, Sodium Level 140, Potassium Level 4.1, Chloride Level 105, Carbon Dioxide Level 33H, Anion Gap 2L, Blood Urea Nitrogen 14, Creatinine 0.5L, Estimat Glomerular Filtration Rate , Glucose Level 108H, Calcium Level 8.0L, Total Bilirubin 0.4, Aspartate Amino Transf (AST/SGOT) 18, Alanine Aminotransferase (ALT/SGPT) 9L, Alkaline Phosphatase 94, Pro-B-Type Natriuretic Peptide 8961H, Total Protein 4.6L, Albumin 1.2L, Globulin 3.4, Albumin/Globulin Ratio 0.4L Current Medications Medications (Trade) Dose Ordered Sig/Cele Route PRN Reason Start Time Stop Time Status Last Admin Dose Admin Acetaminophen (Tylenol) 650 mg Q4H PRN PEG fever (temp>100.5F) 04/03/18 11:00 04/17/18 10:59 Acetylcysteine (Mucomyst) 200 mg Q6HRT HHN 04/03/18 13:00 05/03/18 12:59 04/04/18 07:20 Amiodarone HCl (Cordarone) 200 mg DAILY ORAL 04/04/18 09:00 05/04/18 08:59 04/04/18 08:26 Chlorhexidine Gluconate (Sahra-Hex 2%) 1 applic DAILY@2000 TOPIC 04/03/18 20:00 04/13/18 19:59 04/03/18 20:34 Digoxin (Lanoxin) 0.125 mg DAILY IVP 04/04/18 09:00 04/29/18 08:59 04/04/18 08:29 Ipratropium [place] (Atrovent) 500 mcg Q4H PRN HHN Shortness of Breath 04/03/18 11:00 04/08/18 10:59 04/04/18 07:22 Meropenem 1 gm/ Sodium Chloride 55 ml @ 110 mls/hr Q12H IVPB 04/03/18 17:00 04/08/18 16:59 04/04/18 05:17 Metoclopramide HCl (Reglan) 10 mg EVERY 8 HOURS GT 04/03/18 14:00 05/02/18 13:59 04/04/18 05:17 Olanzapine (ZyPREXA) 2.5 mg Q6H PRN GT agitation 04/03/18 11:00 04/07/18 10:59 Pantoprazole (Protonix) 40 mg EVERY 12 HOURS IVP 04/03/18 21:00 04/26/18 20:59 04/04/18 08:26 Polyethylene Glycol (Miralax) 17 gm DAILYPRN PRN GT Constipation 04/03/18 11:00 04/22/18 10:59 Tamsulosin HCl (Flomax) 0.4 mg BEDTIME ORAL 04/03/18 21:00 04/05/18 20:59 04/03/18 20:34 Vancomycin HCl (Vanco rx to dose) 1 ea DAILY PRN MISC Per rx protocol 04/03/18 11:00 05/03/18 10:59 Vancomycin HCl 500 mg/Dextrose 110 ml @ 110 mls/hr Q12HR@0800,2000 IVPB 04/03/18 20:00 04/07/18 23:59 04/04/18 09:11 Rishi Gutierrez MD Apr 04, 2018 11:47
--- NOTE | 2018-04-04 11:55 | Cardiac Electrophysiology PN ---
Assessment/Plan Status Narrative Technically difficult study due to patient was contracted. Study quality precludes accurate assessment of regional wall motion. Normal left ventricular chamber size, systolic function and wall motion. Left ventricular ejection fraction estimated to be 60-65 %. Mild left ventricular hypertrophy. Small circumferential pericardial effusion. Mild left atrial enlargement. Right cardiac chamber sizes are within normal limits. Aortic valve calcification with decreased cusp excursion c/w aortic stenosis. Mildly thickened mitral valve leaflets with normal excursion. Moderate mitral annulus and aortic root calcification. Normal pulmonic valve structure. Normal tricuspid valve structure. Subcostal views not obtainable due to G tube. Assessment/Plan 1. Paroxysmal atrial fibrillation with rapid ventricular response. Off Cardizem drip as BP dropped to 70s. Echo EF 65%. On Digoxin 0.125 iv daily and Amio GT 2. Urosepsis. On IV antibiotic per ID. 3. Hypotension, off levophed and on IV fluid. 4. Sacral decubitus ulcer. 5. Dementia. 6. Dysphagia. S/P G-tube placement 03/21/17 7. Pleural effusion. Thoracentesis as ordered by Dr Matt RICCI RN Subjective Subjective In atrial fib but rate is better controlled.Is being considered for thoracentesis Objective Last 24 Hour Vital Signs Date Time Temp Pulse Resp B/P (MAP) Pulse Ox O2 Delivery O2 Flow Rate FiO2 04/04/18 08:29 100 04/04/18 08:00 Venturi Mask 15.0 Venturi Mask 15.0 04/04/18 08:00 98 04/04/18 07:58 99.0 100 22 111/67 (82) 100 04/04/18 07:31 101 28 100 Bi-pap 40 04/04/18 07:21 101 30 99 Bi-pap 40 04/04/18 07:20 99 Bi-pap 40 04/04/18 07:20 Bi-pap 40 04/04/18 05:05 103 19 98 Full Face 40 04/04/18 04:00 40 04/04/18 04:00 104 04/04/18 04:00 Venturi Mask 15.0 Venturi Mask 15.0 04/04/18 04:00 98.0 63 18 123/51 (75) 95 04/04/18 03:41 101 24 100 Full Face 40 04/04/18 01:24 106 27 100 Bi-pap 40 04/04/18 01:07 98 21 99 Bi-pap 40 04/04/18 01:05 98 23 99 Full Face 40 04/04/18 00:00 Venturi Mask 15.0 Venturi Mask 15.0 04/04/18 00:00 101 04/04/18 00:00 98.2 100 22 100/60 (73) 98 04/04/18 00:00 40 04/03/18 23:16 100 23 98 Full Face 40 04/03/18 20:40 78 26 96 Full Face 50 04/03/18 20:00 88 04/03/18 20:00 Venturi Mask 15.0 Venturi Mask 15.0 04/03/18 20:00 98.2 83 24 128/66 (86) 94 04/03/18 20:00 40 04/03/18 19:22 81 24 97 Venturi Mask 10.0 45 04/03/18 19:07 Venturi Mask 10.0 45 04/03/18 19:07 81 24 93 Venturi Mask 10.0 45 04/03/18 19:07 93 Venturi Mask 10.0 45 04/03/18 16:00 93 04/03/18 16:00 Venturi Mask 15.0 Venturi Mask 15.0 04/03/18 16:00 98.2 94 30 110/82 (91) 92 04/03/18 13:18 89 36 96 Venturi Mask 10.0 45 04/03/18 12:59 87 36 100 Bi-pap 50 04/03/18 12:00 98.6 92 28 99/64 (76) 90 04/03/18 12:00 Venturi Mask 15.0 Venturi Mask 15.0 Intake and Output 04/03/18 04/04/18 19:00 07:00 Intake Total 335 ml 450 ml Output Total 410 ml 250 ml Balance -75 ml 200 ml Intake Free Water 100 ml 100 ml IV Total 55 ml 110 ml Tube Feeding 180 ml 240 ml Output Urine Total 260 ml 250 ml Stool Total 150 ml # Bowel Movements 50 Laboratory Tests Test 04/04/18 04:35 White Blood Count 12.2 K/UL (4.8-10.8) H Red Blood Count 2.88 M/UL (4.20-5.40) L Hemoglobin 8.7 G/DL (12.0-16.0) L Hematocrit 27.6 % (37.0-47.0) L Mean Corpuscular Volume 96 FL (80-99) Mean Corpuscular Hemoglobin 30.4 PG (27.0-31.0) Mean Corpuscular Hemoglobin Concent 31.7 G/DL (32.0-36.0) L Red Cell Distribution Width 15.7 % (11.6-14.8) H Platelet Count 317 K/UL (150-450) Mean Platelet Volume 4.8 FL (6.5-10.1) L Neutrophils (%) (Auto) 79.4 % (45.0-75.0) H Lymphocytes (%) (Auto) 11.4 % (20.0-45.0) L Monocytes (%) (Auto) 8.1 % (1.0-10.0) Eosinophils (%) (Auto) 0.3 % (0.0-3.0) Basophils (%) (Auto) 0.8 % (0.0-2.0) Sodium Level 140 MMOL/L (136-145) Potassium Level 4.1 MMOL/L (3.5-5.1) Chloride Level 105 MMOL/L (98-107) Carbon Dioxide Level 33 MMOL/L (21-32) H Anion Gap 2 mmol/L (5-15) L Blood Urea Nitrogen 14 mg/dL (7-18) Creatinine 0.5 MG/DL (0.55-1.30) L Estimat Glomerular Filtration Rate mL/min (>60) Glucose Level 108 MG/DL (74-106) H Calcium Level 8.0 MG/DL (8.5-10.1) L Total Bilirubin 0.4 MG/DL (0.2-1.0) Aspartate Amino Transf (AST/SGOT) 18 U/L (15-37) Alanine Aminotransferase (ALT/SGPT) 9 U/L (12-78) L Alkaline Phosphatase 94 U/L (46-116) Pro-B-Type Natriuretic Peptide 8961 pg/mL (0-125) H Total Protein 4.6 G/DL (6.4-8.2) L Albumin 1.2 G/DL (3.4-5.0) L Globulin 3.4 g/dL Albumin/Globulin Ratio 0.4 (1.0-2.7) L Objective HEAD AND NECK: No JVD. LUNGS: Coarse rhonchi bilaterally. CARDIOVASCULAR: Irregular S1 and S2 with no gallop. ABDOMEN: Status post colostomy. GT in place EXTREMITIES: No pitting edema Fredrick Burk MD Apr 04, 2018 11:55
[2018-04-04 12:04] VITALS: BP 114/67
--- NOTE | 2018-04-04 14:36 | Infectious Diseases Prog Note ---
Assessment/Plan Assessment/Plan Assessment/Plan Sepsis, resolved 2ry to UTI c/w bacteremia and prob early PNA -u/a wbc tntc, nit neg, luek +3; ucx >100k PsA (R cipro/levo, otherwise S), E. fecalis (S Amp, vanco); repeat u/a 03/29 wbc 30-40, nit eng, leuk +3; ucx yeast so far -03/06 Bcx 4/ P.mirabiis (R cipro, I Levo; otherwise S), 03/21 MRSE ( contaminant); 03/07 Neg; 03/29 Bcx NTD Probable Pneum : -03/31 CXR: Pulmonary edema. Marginal improvement since the last occasion -03/29 CXR: . Persistent prominent interstitial markings, suggesting pulmonary vascular congestion, interstitial edema, or interstitial pneumonitis, not significantly changed. Subsegmental atelectasis versus infiltrates in bilateral lung bases. Possible small pleural effusions. -CXR: Subtle patchy opacities in the right upper lung raising question for developing pneumonia. Clinical correlation/follow-up recommended. -influenza sc neg -sp cx MRSA, C. albicans (Colonizer); 03/29 sp cx MRSA, PSA (R Cefepime, Ceftazidie, Zosyn; S Cipro/levo, Genta, Imi)(prob colonizers) 03/19/17 - CT C/A/P - Bilateral basilar pneumonia versus atelectasis. Small to moderate left pleural effusion and a small right pleural effusion noted. 03/19/18 UCx - Yeast 03/23/18 CXR - B/L consolidation R>L 03/22/09 SpCx - MRSA, P.a. and NF Low grade fever, SP Leukocytosis -recurrent, improving -03/29 CDiff neg FTT HTN Afib dysphagia HLD Dementia contractures Plan: -Continue IV Vanco d# -20 and add Meropenem #2 to cover PsA given fever and leukocytosis -04/01 SP flagyl #12 -03/31 SP Cefepime #27 -03/13 SP IV Vancomycin #7 -03/06 SP Meropenem x1 -Monitor CBC/CMP, temperatures -aspiration precautions Subjective Allergies: Coded Allergies: No Known Allergies (Unverified , 03/06/18) Subjective afebrile >24hrs wbc improved on VM 10L Objective Vital Signs Last 24 Hour Vital Signs Date Time Temp Pulse Resp B/P (MAP) Pulse Ox O2 Delivery O2 Flow Rate FiO2 04/04/18 13:32 105 24 95 Venturi Mask 10.0 45 04/04/18 13:20 102 22 95 Venturi Mask 10.0 45 04/04/18 12:04 98.1 101 24 114/67 (83) 95 04/04/18 12:00 Venturi Mask 15.0 Venturi Mask 15.0 04/04/18 12:00 96 04/04/18 08:29 100 04/04/18 08:00 Venturi Mask 15.0 Venturi Mask 15.0 04/04/18 08:00 98 04/04/18 07:58 99.0 100 22 111/67 (82) 100 04/04/18 07:31 101 28 100 Bi-pap 40 04/04/18 07:21 101 30 99 Bi-pap 40 04/04/18 07:20 99 Bi-pap 40 04/04/18 07:20 Bi-pap 40 04/04/18 05:05 103 19 98 Full Face 40 04/04/18 04:00 40 04/04/18 04:00 104 04/04/18 04:00 Venturi Mask 15.0 Venturi Mask 15.0 04/04/18 04:00 98.0 63 18 123/51 (75) 95 04/04/18 03:41 101 24 100 Full Face 40 04/04/18 01:24 106 27 100 Bi-pap 40 04/04/18 01:07 98 21 99 Bi-pap 40 04/04/18 01:05 98 23 99 Full Face 40 04/04/18 00:00 Venturi Mask 15.0 Venturi Mask 15.0 04/04/18 00:00 101 04/04/18 00:00 98.2 100 22 100/60 (73) 98 04/04/18 00:00 40 04/03/18 23:16 100 23 98 Full Face 40 04/03/18 20:40 78 26 96 Full Face 50 04/03/18 20:00 88 04/03/18 20:00 Venturi Mask 15.0 Venturi Mask 15.0 04/03/18 20:00 98.2 83 24 128/66 (86) 94 04/03/18 20:00 40 04/03/18 19:22 81 24 97 Venturi Mask 10.0 45 04/03/18 19:07 Venturi Mask 10.0 45 04/03/18 19:07 81 24 93 Venturi Mask 10.0 45 04/03/18 19:07 93 Venturi Mask 10.0 45 04/03/18 16:00 93 04/03/18 16:00 Venturi Mask 15.0 Venturi Mask 15.0 04/03/18 16:00 98.2 94 30 110/82 (91) 92 Height (Feet): 5 Height (Inches): 3.00 Weight (Pounds): 151 Objective General Appearance: no apparent distress, alert, GCS 15, non-toxic, other - frail, elderly, chronically ill, contracted, non-verbal, Chronically Ill HEENT: normocephalic, atraumatic, bilateral eye normal inspection, bilateral eye PERRL Respiratory: chest non-tender, lungs clear, normal breath sounds, no respiratory distress, no retraction, no accessory muscle use, speaking full sentences Cardiovascular : no edema, tachycardia, systolic murmur, irregularly irregular Gastrointestinal: normal bowel sounds, non tender, soft, non-distended, no guarding, no rebound, other - colostomy bag in place. Musculoskeletal: back normal, gait/station normal, normal range of motion, non- tender Neurologic: alert, other - non-focal. Contracted, non-verbal Skin: no rash, warm/dry, well hydrated, other - Multiple DU Laboratory Tests Test 04/04/18 04:35 White Blood Count 12.2 K/UL (4.8-10.8) H Red Blood Count 2.88 M/UL (4.20-5.40) L Hemoglobin 8.7 G/DL (12.0-16.0) L Hematocrit 27.6 % (37.0-47.0) L Mean Corpuscular Volume 96 FL (80-99) Mean Corpuscular Hemoglobin 30.4 PG (27.0-31.0) Mean Corpuscular Hemoglobin Concent 31.7 G/DL (32.0-36.0) L Red Cell Distribution Width 15.7 % (11.6-14.8) H Platelet Count 317 K/UL (150-450) Mean Platelet Volume 4.8 FL (6.5-10.1) L Neutrophils (%) (Auto) 79.4 % (45.0-75.0) H Lymphocytes (%) (Auto) 11.4 % (20.0-45.0) L Monocytes (%) (Auto) 8.1 % (1.0-10.0) Eosinophils (%) (Auto) 0.3 % (0.0-3.0) Basophils (%) (Auto) 0.8 % (0.0-2.0) Sodium Level 140 MMOL/L (136-145) Potassium Level 4.1 MMOL/L (3.5-5.1) Chloride Level 105 MMOL/L (98-107) Carbon Dioxide Level 33 MMOL/L (21-32) H Anion Gap 2 mmol/L (5-15) L Blood Urea Nitrogen 14 mg/dL (7-18) Creatinine 0.5 MG/DL (0.55-1.30) L Estimat Glomerular Filtration Rate mL/min (>60) Glucose Level 108 MG/DL (74-106) H Calcium Level 8.0 MG/DL (8.5-10.1) L Total Bilirubin 0.4 MG/DL (0.2-1.0) Aspartate Amino Transf (AST/SGOT) 18 U/L (15-37) Alanine Aminotransferase (ALT/SGPT) 9 U/L (12-78) L Alkaline Phosphatase 94 U/L (46-116) Pro-B-Type Natriuretic Peptide 8961 pg/mL (0-125) H Total Protein 4.6 G/DL (6.4-8.2) L Albumin 1.2 G/DL (3.4-5.0) L Globulin 3.4 g/dL Albumin/Globulin Ratio 0.4 (1.0-2.7) L Current Medications Medications (Trade) Dose Ordered Sig/Cele Route PRN Reason Start Time Stop Time Status Last Admin Dose Admin Acetaminophen (Tylenol) 650 mg Q4H PRN PEG fever (temp>100.5F) 04/03/18 11:00 04/17/18 10:59 Acetylcysteine (Mucomyst) 200 mg Q6HRT HHN 04/03/18 13:00 05/03/18 12:59 04/04/18 13:17 Amiodarone HCl (Cordarone) 200 mg DAILY ORAL 04/04/18 09:00 05/04/18 08:59 04/04/18 08:26 Chlorhexidine Gluconate (Sahra-Hex 2%) 1 applic DAILY@2000 TOPIC 04/03/18 20:00 04/13/18 19:59 04/03/18 20:34 Digoxin (Lanoxin) 0.125 mg DAILY IVP 04/04/18 09:00 04/29/18 08:59 04/04/18 08:29 Ipratropium [place] (Atrovent) 500 mcg Q4H PRN HHN Shortness of Breath 04/03/18 11:00 04/08/18 10:59 04/04/18 13:17 Meropenem 1 gm/ Sodium Chloride 55 ml @ 110 mls/hr Q12H IVPB 04/03/18 17:00 04/08/18 16:59 04/04/18 05:17 Metoclopramide HCl (Reglan) 10 mg EVERY 8 HOURS GT 04/03/18 14:00 05/02/18 13:59 04/04/18 14:22 Olanzapine (ZyPREXA) 2.5 mg Q6H PRN GT agitation 04/03/18 11:00 04/07/18 10:59 Pantoprazole (Protonix) 40 mg EVERY 12 HOURS IVP 04/03/18 21:00 04/26/18 20:59 04/04/18 08:26 Polyethylene Glycol (Miralax) 17 gm DAILYPRN PRN GT Constipation 04/03/18 11:00 04/22/18 10:59 Tamsulosin HCl (Flomax) 0.4 mg BEDTIME ORAL 04/03/18 21:00 04/05/18 20:59 04/03/18 20:34 Vancomycin HCl (Vanco rx to dose) 1 ea DAILY PRN MISC Per rx protocol 04/03/18 11:00 05/03/18 10:59 Vancomycin HCl 500 mg/Dextrose 110 ml @ 110 mls/hr Q12HR@0800,1999 IVPB 04/03/18 20:00 04/07/18 23:59 04/04/18 09:11 Sussy Daniel M.D. Apr 04, 2018 14:36
--- NOTE | 2018-04-04 15:08 | Internal Med Progress Note ---
Subjective Physician Name Davian Scott Attending Physician Davian Scott MD Current Medications Medications (Trade) Dose Ordered Sig/Cele Route PRN Reason Start Time Stop Time Status Last Admin Dose Admin Acetaminophen (Tylenol) 650 mg Q4H PRN PEG fever (temp>100.5F) 04/03/18 11:00 04/17/18 10:59 Acetylcysteine (Mucomyst) 200 mg Q6HRT HHN 04/03/18 13:00 05/03/18 12:59 04/04/18 13:17 Amiodarone HCl (Cordarone) 200 mg DAILY ORAL 04/04/18 09:00 05/04/18 08:59 04/04/18 08:26 Chlorhexidine Gluconate (Sahra-Hex 2%) 1 applic DAILY@2000 TOPIC 04/03/18 20:00 04/13/18 19:59 04/03/18 20:34 Digoxin (Lanoxin) 0.125 mg DAILY IVP 04/04/18 09:00 04/29/18 08:59 04/04/18 08:29 Ipratropium [place] (Atrovent) 500 mcg Q4H PRN HHN Shortness of Breath 04/03/18 11:00 04/08/18 10:59 04/04/18 13:17 Meropenem 1 gm/ Sodium Chloride 55 ml @ 110 mls/hr Q12H IVPB 04/03/18 17:00 04/08/18 16:59 04/04/18 05:17 Metoclopramide HCl (Reglan) 10 mg EVERY 8 HOURS GT 04/03/18 14:00 05/02/18 13:59 04/04/18 14:22 Olanzapine (ZyPREXA) 2.5 mg Q6H PRN GT agitation 04/03/18 11:00 04/07/18 10:59 Pantoprazole (Protonix) 40 mg EVERY 12 HOURS IVP 04/03/18 21:00 04/26/18 20:59 04/04/18 08:26 Polyethylene Glycol (Miralax) 17 gm DAILYPRN PRN GT Constipation 04/03/18 11:00 04/22/18 10:59 Tamsulosin HCl (Flomax) 0.4 mg BEDTIME ORAL 04/03/18 21:00 04/05/18 20:59 04/03/18 20:34 Vancomycin HCl (Vanco rx to dose) 1 ea DAILY PRN MISC Per rx protocol 04/03/18 11:00 05/03/18 10:59 Vancomycin HCl 500 mg/Dextrose 110 ml @ 110 mls/hr Q12HR@0800,2000 IVPB 04/03/18 20:00 04/07/18 23:59 04/04/18 09:11 Allergies: Coded Allergies: No Known Allergies (Unverified , 03/06/18) Subjective in CALISTA, responsive with open eyes, not verbal, NAD. Objective Last Vital Signs Date Time Temp Pulse Resp B/P (MAP) Pulse Ox O2 Delivery O2 Flow Rate FiO2 04/04/18 13:32 105 24 95 Venturi Mask 10.0 45 04/04/18 12:04 98.1 114/67 (83) Laboratory Tests Test 04/04/18 04:35 White Blood Count 12.2 K/UL (4.8-10.8) H Red Blood Count 2.88 M/UL (4.20-5.40) L Hemoglobin 8.7 G/DL (12.0-16.0) L Hematocrit 27.6 % (37.0-47.0) L Mean Corpuscular Volume 96 FL (80-99) Mean Corpuscular Hemoglobin 30.4 PG (27.0-31.0) Mean Corpuscular Hemoglobin Concent 31.7 G/DL (32.0-36.0) L Red Cell Distribution Width 15.7 % (11.6-14.8) H Platelet Count 317 K/UL (150-450) Mean Platelet Volume 4.8 FL (6.5-10.1) L Neutrophils (%) (Auto) 79.4 % (45.0-75.0) H Lymphocytes (%) (Auto) 11.4 % (20.0-45.0) L Monocytes (%) (Auto) 8.1 % (1.0-10.0) Eosinophils (%) (Auto) 0.3 % (0.0-3.0) Basophils (%) (Auto) 0.8 % (0.0-2.0) Sodium Level 140 MMOL/L (136-145) Potassium Level 4.1 MMOL/L (3.5-5.1) Chloride Level 105 MMOL/L (98-107) Carbon Dioxide Level 33 MMOL/L (21-32) H Anion Gap 2 mmol/L (5-15) L Blood Urea Nitrogen 14 mg/dL (7-18) Creatinine 0.5 MG/DL (0.55-1.30) L Estimat Glomerular Filtration Rate mL/min (>60) Glucose Level 108 MG/DL (74-106) H Calcium Level 8.0 MG/DL (8.5-10.1) L Total Bilirubin 0.4 MG/DL (0.2-1.0) Aspartate Amino Transf (AST/SGOT) 18 U/L (15-37) Alanine Aminotransferase (ALT/SGPT) 9 U/L (12-78) L Alkaline Phosphatase 94 U/L (46-116) Pro-B-Type Natriuretic Peptide 8961 pg/mL (0-125) H Total Protein 4.6 G/DL (6.4-8.2) L Albumin 1.2 G/DL (3.4-5.0) L Globulin 3.4 g/dL Albumin/Globulin Ratio 0.4 (1.0-2.7) L Intake and Output 04/03/18 04/04/18 18:59 06:59 Intake Total 335 ml 450 ml Output Total 430 ml 250 ml Balance -95 ml 200 ml Intake Free Water 100 ml 100 ml IV Total 55 ml 110 ml Tube Feeding 180 ml 240 ml Output Urine Total 280 ml 250 ml Stool Total 150 ml # Bowel Movements 50 Objective General: No acute distress, awake and open eyes HEENT: NCAT, sclera anicteric, PERRL, Neck: Supple, no significant jugular venous distention, Left IJ TLC. Lungs: fair inspiratory effort, Decrease air at bases, no Wheeze or Rales. Heart: Irregular rate and rhythm, normal S1/S2, no murmur, Abdomen: soft, nontender, nondistended. Normoactive bowel sounds, PEG site intact, colostomy bag intact. : [place] cath Extremities: No Cyanosis , clubbing or edema. Left Hell ulceration dressing. Neuro: A&O x 1, Limited due to patient status, Functional Quadriplegia Skin: warm, no rashes, Assessment/Plan Assessment/Plan Sepsis due to UTI Bacteremia Probability early PNA Functional Quadriplegia. HTN Afib with RVR dysphagia HLD Dementia All extremities contracture Multiple Decubitus Ulcer Plan: Abx: Meropenem and Vanco IV Tube feeding @ 45 cc/hr. Full code heparin SQ F/U with labs and cultures. F/U with Dr. Burk recommendation. S/P thoracocentesis today. Davian Scott MD Apr 04, 2018 15:08
--- NOTE | 2018-04-04 15:19 | Diagnostic Imaging Report ---
Indications: Pleural effusion Technique: Ultrasound used to localize optimal puncture site. Sterile prepping and draping of the left lower chest performed. Local anesthesia with 1% lidocaine. Dermatotomy made. Puncture of the pleural space using thoracentesis needle. Stylet removed. Catheter placed to vacuum bottle suction. Fluid was aspirated. Patient tolerated procedure well, without immediate complication. Findings: Followup sonography demonstrates complete resolution of pleural fluid. Followup chest x-ray is pending. Impression: Successful ultrasound-guided left thoracentesis, yielding 200 cc of fluid.
--- NOTE | 2018-04-04 15:25 | Diagnostic Imaging Report ---
Indication: Dyspnea. Status post thoracentesis Comparison: 04/04/2018 at earlier time 07:38 A single view chest radiograph was obtained. Findings: Hazy left pleural effusion demonstrated. No pneumothorax is identified. Heart size is stable. Left jugular central venous catheter is stable. Mild interstitial edema suspected. IMPRESSION: No change from the earlier film. No pneumothorax identified
--- NOTE | 2018-04-04 15:29 | Diagnostic Imaging Report ---
Indication: Dyspnea Comparison: 04/03/2018 A single view chest radiograph was obtained. Findings: Left pleural effusion again demonstrated with some shifting of the fluid. There is better aeration of the left lung which is expanded slightly further. There is considerable pulmonary edema present. IMPRESSION: Left pleural effusion. Congestive heart failure.
[2018-04-04 16:00] VITALS: BP 109/68
[2018-04-04 20:00] VITALS: BP 148/68
[2018-04-04] MEDS: Dyna-Hex 2% Top Sol 2oz TOPIC SCH (20:13)
[2018-04-04] MEDS: Tamsulosin 0.4mg cap ORAL SCH (20:13)
[2018-04-05] VITALS: BP 118/74
[2018-04-05] MEDS: Acetylcysteine 20% Soln 4ml HHN SCH ×4 (00:32→18:50)
[2018-04-05] MEDS: Ipratropium 0.02% Inh Soln 2.5ml UD HHN PRN ×4 (00:33→19:08)
[2018-04-05 04:00] VITALS: BP 100/68
[2018-04-05] MEDS: Metoclopramide 10mg/10ml Liq GT SCH ×3 (05:28→22:08)
[2018-04-05] MEDS: Meropenem 1 GM in NS 55 ML IVPB SCH ×2 (05:28→17:38)
[2018-04-05 07:19] LABS: BASOPHILS % (AUTO) 0.7 % (0.0-2.0); EOSINOPHILS % (AUTO) 0.4 % (0.0-3.0); HEMATOCRIT 28.5 % (37.0-47.0); LYMPHOCYTES % (AUTO) 10.1 % (20.0-45.0); MEAN CORPUSCULAR VOLUME 96 FL (80-99); MONOCYTES % (AUTO) 8.1 % (1.0-10.0); NEUTROPHILS % (AUTO) 80.7 % (45.0-75.0); PLATELET COUNT 307 K/UL (150-450); RED BLOOD COUNT 2.96 M/UL (4.20-5.40); RED CELL DISTRIBUTION WIDTH 15.6 % (11.6-14.8)
[2018-04-05 07:41] LABS: ANION GAP 3 mmol/L (5-15); BLOOD UREA NITROGEN 14 mg/dL (7-18); CALCIUM 8.4 MG/DL (8.5-10.1); CARBON DIOXIDE 33 MMOL/L (21-32); CHLORIDE 104 MMOL/L (98-107); SODIUM 140 MMOL/L (136-145)
[2018-04-05 07:52] LABS: CREATININE 0.5 MG/DL (0.55-1.30)
[2018-04-05 08:00] VITALS: BP 105/63
[2018-04-05] MEDS: Vancomycin 500 MG in D5W 110 ML IVPB SCH ×2 (08:36→20:27)
[2018-04-05] MEDS: Amiodarone 200mg tab ORAL SCH (08:37)
[2018-04-05] MEDS: Pantoprazole Inj IVP SCH ×2 (08:40→20:27)
[2018-04-05] MEDS: Digoxin 0.5mg/2ml Inj IVP SCH (08:40)
--- NOTE | 2018-04-05 08:49 | Pulmonology Progress Note ---
Assessment/Plan Assessment/Plan ASSESSMENT Acute hypoxemic resp failure requiring BiPAP and Venturi mask Sepsis with Proteus bacteremia septic shock-resolved UTI with Pseudomonas and Enterococci PNA with MRSA and Pseudomonas Persistent left pleural effusion s/p thoracentesis L pleural effusion -200 cc severe pulmonary HTN sacral decub st 4, POA s/p excisional debridement of sacral decub 1/ PAF with RVR dysphagia, s/p PEG 03/21 functional quadriplegia dementia severe protein calorie malnutrition PLAN OF CARE CALISTA off Levophed and Cardizem drip suppl O2, titrate O2 to keep sat above 92% pulmonary toilet s/p tap L pleural effusion -200 cc pleural fluid no evidence of infection cytology of pleural fluid pending fup CXR with better aeration but still persistent pleural effusion, likely loculated abx as per ID recs aspiration precaution , s/p PEG 03/21 , G-tube feeding , monitor tolerance GI follows GI prophylaxis Echo with EF 60-[address] C/A/P noted venous duplex bilateral lower extremity negative cardio follows BP closely monitored, stable off pressors on digoxin and amiodarone nutritional recommendation implemented in plan of care wound care as per surgeon recommendation supportive care pain management case discussed and evaluated by supervising physician Subjective Allergies: Coded Allergies: No Known Allergies (Unverified , 03/06/18) Subjective mild leucocytosis, afebrile still on VM unable to wean done Objective Last 24 Hour Vital Signs Date Time Temp Pulse Resp B/P (MAP) Pulse Ox O2 Delivery O2 Flow Rate FiO2 04/05/18 08:40 107 04/05/18 08:00 98.4 107 18 105/63 (77) 97 04/05/18 07:47 107 22 98 Bi-pap 40 04/05/18 07:45 97 Venturi Mask 10.0 45 04/05/18 07:45 Venturi Mask 10.0 45 04/05/18 07:40 107 20 96 Venturi Mask 10.0 45 04/05/18 05:04 98 18 98 Full Face 40 04/05/18 04:00 98.8 101 28 100/68 (79) 99 04/05/18 04:00 40 04/05/18 04:00 Venturi Mask 15.0 Venturi Mask 15.0 04/05/18 03:41 103 04/05/18 02:41 103 21 98 Full Face 40 04/05/18 00:43 108 25 99 Bi-pap 40 04/05/18 00:33 111 30 97 Bi-pap 40 04/05/18 00:24 107 32 96 Full Face 40 04/05/18 00:00 97.2 105 28 118/74 (89) 95 04/05/18 00:00 Venturi Mask 15.0 Venturi Mask 15.0 04/05/18 00:00 106 04/05/18 00:00 40 04/04/18 20:00 97 04/04/18 20:00 15.0 45 04/04/18 20:00 97.9 104 30 148/68 (94) 98 04/04/18 20:00 Venturi Mask 15.0 Venturi Mask 15.0 04/04/18 19:50 98 22 98 Venturi Mask 10.0 45 04/04/18 19:43 Venturi Mask 10.0 45 04/04/18 19:42 98 Venturi Mask 10.0 45 04/04/18 19:40 96 24 97 Venturi Mask 10.0 45 04/04/18 16:00 Venturi Mask 15.0 Venturi Mask 15.0 04/04/18 16:00 98.6 101 24 109/68 (82) 96 04/04/18 16:00 97 04/04/18 13:32 105 24 95 Venturi Mask 10.0 45 04/04/18 13:20 102 22 95 Venturi Mask 10.0 45 04/04/18 12:04 98.1 101 24 114/67 (83) 95 04/04/18 12:00 Venturi Mask 15.0 Venturi Mask 15.0 04/04/18 12:00 96 Intake and Output 04/04/18 04/05/18 19:00 07:00 Intake Total 550 ml 430 ml Output Total 600 ml 525 ml Balance -50 ml -95 ml Intake Free Water 200 ml 100 ml IV Total 110 ml 110 ml Tube Feeding 240 ml 220 ml Output Urine Total 400 ml 450 ml Stool Total 75 ml Other 200 ml # Bowel Movements 160 150 General Appearance: other - bedbound, awake, but poorly responsive, elderly female HEENT: normocephalic, atraumatic, anicteric, other - VM 45% Respiratory/Chest: decreased breath sounds Cardiovascular: normal peripheral pulses, no JVD, tachycardia - ST, other - LIJ CL intact Abdomen: normal bowel sounds, soft, non tender, other - G tube , colostomy intact Extremities: no edema, pedal pulses normal Skin: other - sacraol decub st 3 Neurologic/Psychiatric: abnormal gait - bedbound , other - contracted Musculoskeletal: atrophy - BLE Microbiology Date/Time Source Procedure Growth Status 04/04/18 14:10 Ascities Fluid Gram Stain - Final Resulted 04/04/18 14:10 Ascities Fluid Body Fluid Culture Pending Resulted Laboratory Tests 04/04/18 14:10: Body Fluid Source Thoracentesis, Body Fluid Volume 24, Body Fluid Appearance Clear, Body Fluid RBC 186, Body Fluid Total Nucleated Cells 209, Body Fluid Polynuclear WBCs (%) 75, Body Fluid Mononuclear WBCs (%) 19, Body Fluid Mesothelial Cells (%) 6, Body Fluid Glucose [Pending], Body Fluid Total Protein [Pending], Body Fluid Albumin [Pending] 04/05/18 04:00: White Blood Count 11.0H, Red Blood Count 2.96L, Hemoglobin 9.0L, Hematocrit 28.5L, Mean Corpuscular Volume 96, Mean Corpuscular Hemoglobin 30.4, Mean Corpuscular Hemoglobin Concent 31.6L, Red Cell Distribution Width 15.6H, Platelet Count 307, Mean Platelet Volume 4.8L, Neutrophils (%) (Auto) 80.7H, Lymphocytes (%) (Auto) 10.1L, Monocytes (%) (Auto) 8.1, Eosinophils (%) (Auto) 0.4, Basophils (%) (Auto) 0.7, Sodium Level 140, Potassium Level 4.0, Chloride Level 104, Carbon Dioxide Level 33H, Anion Gap 3L, Blood Urea Nitrogen 14, Creatinine 0.5L, Estimat Glomerular Filtration Rate , Glucose Level 103, Calcium Level 8.4L Current Medications Medications (Trade) Dose Ordered Sig/Cele Route PRN Reason Start Time Stop Time Status Last Admin Dose Admin Acetaminophen (Tylenol) 650 mg Q4H PRN PEG fever (temp>100.5F) 04/03/18 11:00 04/17/18 10:59 Acetylcysteine (Mucomyst) 200 mg Q6HRT HHN 04/03/18 13:00 05/03/18 12:59 04/05/18 07:00 Amiodarone HCl (Cordarone) 200 mg DAILY ORAL 04/04/18 09:00 05/04/18 08:59 04/05/18 08:37 Chlorhexidine Gluconate (Sahra-Hex 2%) 1 applic DAILY@1999 TOPIC 04/03/18 20:00 04/13/18 19:59 04/04/18 20:13 Digoxin (Lanoxin) 0.125 mg DAILY IVP 04/04/18 09:00 04/29/18 08:59 04/05/18 08:40 Ipratropium [place] (Atrovent) 500 mcg Q4H PRN HHN Shortness of Breath 04/03/18 11:00 04/08/18 10:59 04/05/18 07:45 Meropenem 1 gm/ Sodium Chloride 55 ml @ 110 mls/hr Q12H IVPB 04/03/18 17:00 04/08/18 16:59 04/05/18 05:28 Metoclopramide HCl (Reglan) 10 mg EVERY 8 HOURS GT 04/03/18 14:00 05/02/18 13:59 04/05/18 05:28 Olanzapine (ZyPREXA) 2.5 mg Q6H PRN GT agitation 04/03/18 11:00 04/07/18 10:59 Pantoprazole (Protonix) 40 mg EVERY 12 HOURS IVP 04/03/18 21:00 04/26/18 20:59 04/05/18 08:40 Polyethylene Glycol (Miralax) 17 gm DAILYPRN PRN GT Constipation 04/03/18 11:00 04/22/18 10:59 Tamsulosin HCl (Flomax) 0.4 mg BEDTIME ORAL 04/03/18 21:00 04/05/18 20:59 04/04/18 20:13 Vancomycin HCl (Vanco rx to dose) 1 ea DAILY PRN MISC Per rx protocol 04/03/18 11:00 05/03/18 10:59 Vancomycin HCl 500 mg/Dextrose 110 ml @ 110 mls/hr Q12HR@08,1999 IVPB 04/03/18 20:00 04/07/18 23:59 04/05/18 08:36 Emy Gutierrez NP Apr 05, 2018 08:49
--- NOTE | 2018-04-05 11:33 | Infectious Diseases Prog Note ---
Assessment/Plan Assessment/Plan Assessment: Sepsis, resolved 2ry to UTI c/w bacteremia and prob early PNA -u/a wbc tntc, nit neg, luek +3; ucx >100k PsA (R cipro/levo, otherwise S), E. fecalis (S Amp, vanco); repeat u/a 03/29 wbc 30-40, nit eng, leuk +3; ucx yeast so far -03/06 Bcx 4/ P.mirabiis (R cipro, I Levo; otherwise S), 03/21 MRSE ( contaminant); 03/07 Neg; 03/29 Bcx NTD Probable Pneum : -03/31 CXR: Pulmonary edema. Marginal improvement since the last occasion -03/29 CXR: . Persistent prominent interstitial markings, suggesting pulmonary vascular congestion, interstitial edema, or interstitial pneumonitis, not significantly changed. Subsegmental atelectasis versus infiltrates in bilateral lung bases. Possible small pleural effusions. -CXR: Subtle patchy opacities in the right upper lung raising question for developing pneumonia. Clinical correlation/follow-up recommended. -influenza sc neg -sp cx MRSA, C. albicans (Colonizer); 03/29 sp cx MRSA, PSA (R Cefepime, Ceftazidie, Zosyn; S Cipro/levo, Genta, Imi)(prob colonizers) 03/19/17 - CT C/A/P - Bilateral basilar pneumonia versus atelectasis. Small to moderate left pleural effusion and a small right pleural effusion noted. 03/19/18 UCx - Yeast 03/23/18 CXR - B/L consolidation R>L 03/22/09 SpCx - MRSA, P.a. and NF Low grade fever, SP Leukocytosis -recurrent, improving -03/29 CDiff neg Pleural effusion SP Thoraco : no evidence of empyema FTT HTN Afib dysphagia HLD Dementia contractures Plan: -Continue IV Vanco d# -20 and add Meropenem #3 to cover PsA given fever and leukocytosis -04/01 SP flagyl #12 -03/31 SP Cefepime #27 -03/13 SP IV Vancomycin #7 -03/06 SP Meropenem x1 -Monitor CBC/CMP, temperatures -aspiration precautions Subjective Allergies: Coded Allergies: No Known Allergies (Unverified , 03/06/18) Subjective Afebrile Objective Vital Signs Last 24 Hour Vital Signs Date Time Temp Pulse Resp B/P (MAP) Pulse Ox O2 Delivery O2 Flow Rate FiO2 04/05/18 08:40 107 04/05/18 08:00 105 04/05/18 08:00 98.4 107 18 105/63 (77) 97 04/05/18 08:00 Venturi Mask 15.0 Venturi Mask 15.0 04/05/18 07:47 107 22 98 Bi-pap 40 04/05/18 07:45 97 Venturi Mask 10.0 45 04/05/18 07:45 Venturi Mask 10.0 45 04/05/18 07:40 107 20 96 Venturi Mask 10.0 45 04/05/18 05:04 98 18 98 Full Face 40 04/05/18 04:00 98.8 101 28 100/68 (79) 99 04/05/18 04:00 40 04/05/18 04:00 Venturi Mask 15.0 Venturi Mask 15.0 04/05/18 03:41 103 04/05/18 02:41 103 21 98 Full Face 40 04/05/18 00:43 108 25 99 Bi-pap 40 04/05/18 00:33 111 30 97 Bi-pap 40 04/05/18 00:24 107 32 96 Full Face 40 04/05/18 00:00 97.2 105 28 118/74 (89) 95 04/05/18 00:00 Venturi Mask 15.0 Venturi Mask 15.0 04/05/18 00:00 106 04/05/18 00:00 40 04/04/18 20:00 97 04/04/18 20:00 15.0 45 04/04/18 20:00 97.9 104 30 148/68 (94) 98 04/04/18 20:00 Venturi Mask 15.0 Venturi Mask 15.0 04/04/18 19:50 98 22 98 Venturi Mask 10.0 45 04/04/18 19:43 Venturi Mask 10.0 45 04/04/18 19:42 98 Venturi Mask 10.0 45 04/04/18 19:40 96 24 97 Venturi Mask 10.0 45 04/04/18 16:00 Venturi Mask 15.0 Venturi Mask 15.0 04/04/18 16:00 98.6 101 24 109/68 (82) 96 04/04/18 16:00 97 04/04/18 13:32 105 24 95 Venturi Mask 10.0 45 04/04/18 13:20 102 22 95 Venturi Mask 10.0 45 04/04/18 12:04 98.1 101 24 114/67 (83) 95 04/04/18 12:00 Venturi Mask 15.0 Venturi Mask 15.0 04/04/18 12:00 96 Height (Feet): 5 Height (Inches): 3.00 Weight (Pounds): 150 HEENT: anicteric Respiratory/Chest: normal breath sounds Cardiovascular: regularly irregular Abdomen: no organomegaly Microbiology Date/Time Source Procedure Growth Status 04/04/18 14:10 Ascities Fluid Gram Stain - Final Resulted 04/04/18 14:10 Ascities Fluid Body Fluid Culture Pending Resulted Laboratory Tests Test 04/04/18 14:10 04/05/18 04:00 Body Fluid Source Thoracentesis Body Fluid Volume 24 mL Body Fluid Appearance Clear (Clear) Body Fluid RBC 186 /CUMM Body Fluid Total Nucleated Cells 209 /CUMM Body Fluid Polynuclear WBCs (%) 75 % Body Fluid Mononuclear WBCs (%) 19 % Body Fluid Mesothelial Cells (%) 6 % Body Fluid Glucose Pending Body Fluid Total Protein Pending Body Fluid Albumin Pending White Blood Count 11.0 K/UL (4.8-10.8) H Red Blood Count 2.96 M/UL (4.20-5.40) L Hemoglobin 9.0 G/DL (12.0-16.0) L Hematocrit 28.5 % (37.0-47.0) L Mean Corpuscular Volume 96 FL (80-99) Mean Corpuscular Hemoglobin 30.4 PG (27.0-31.0) Mean Corpuscular Hemoglobin Concent 31.6 G/DL (32.0-36.0) L Red Cell Distribution Width 15.6 % (11.6-14.8) H Platelet Count 307 K/UL (150-450) Mean Platelet Volume 4.8 FL (6.5-10.1) L Neutrophils (%) (Auto) 80.7 % (45.0-75.0) H Lymphocytes (%) (Auto) 10.1 % (20.0-45.0) L Monocytes (%) (Auto) 8.1 % (1.0-10.0) Eosinophils (%) (Auto) 0.4 % (0.0-3.0) Basophils (%) (Auto) 0.7 % (0.0-2.0) Sodium Level 140 MMOL/L (136-145) Potassium Level 4.0 MMOL/L (3.5-5.1) Chloride Level 104 MMOL/L (98-107) Carbon Dioxide Level 33 MMOL/L (21-32) H Anion Gap 3 mmol/L (5-15) L Blood Urea Nitrogen 14 mg/dL (7-18) Creatinine 0.5 MG/DL (0.55-1.30) L Estimat Glomerular Filtration Rate mL/min (>60) Glucose Level 103 MG/DL (74-106) Calcium Level 8.4 MG/DL (8.5-10.1) L Current Medications Medications (Trade) Dose Ordered Sig/Cele Route PRN Reason Start Time Stop Time Status Last Admin Dose Admin Acetaminophen (Tylenol) 650 mg Q4H PRN PEG fever (temp>100.5F) 04/03/18 11:00 04/17/18 10:59 Acetylcysteine (Mucomyst) 200 mg Q6HRT HHN 04/03/18 13:00 05/03/18 12:59 04/05/18 07:00 Amiodarone HCl (Cordarone) 200 mg DAILY ORAL 04/04/18 09:00 05/04/18 08:59 04/05/18 08:37 Chlorhexidine Gluconate (Sahra-Hex 2%) 1 applic DAILY@2000 TOPIC 04/03/18 20:00 04/13/18 19:59 04/04/18 20:13 Digoxin (Lanoxin) 0.125 mg DAILY IVP 04/04/18 09:00 04/29/18 08:59 04/05/18 08:40 Ipratropium [place] (Atrovent) 500 mcg Q4H PRN HHN Shortness of Breath 04/03/18 11:00 04/08/18 10:59 04/05/18 07:45 Meropenem 1 gm/ Sodium Chloride 55 ml @ 110 mls/hr Q12H IVPB 04/03/18 17:00 04/08/18 16:59 04/05/18 05:28 Metoclopramide HCl (Reglan) 10 mg EVERY 8 HOURS GT 04/03/18 14:00 05/02/18 13:59 04/05/18 05:28 Olanzapine (ZyPREXA) 2.5 mg Q6H PRN GT agitation 04/03/18 11:00 04/07/18 10:59 Pantoprazole (Protonix) 40 mg EVERY 12 HOURS IVP 04/03/18 21:00 04/26/18 20:59 04/05/18 08:40 Polyethylene Glycol (Miralax) 17 gm DAILYPRN PRN GT Constipation 04/03/18 11:00 04/22/18 10:59 Tamsulosin HCl (Flomax) 0.4 mg BEDTIME ORAL 04/03/18 21:00 04/05/18 20:59 04/04/18 20:13 Vancomycin HCl (Vanco rx to dose) 1 ea DAILY PRN MISC Per rx protocol 04/03/18 11:00 05/03/18 10:59 Vancomycin HCl 500 mg/Dextrose 110 ml @ 110 mls/hr Q12HR@0800,2000 IVPB 04/03/18 20:00 04/07/18 23:59 04/05/18 08:36 Gunner Oshea MD Apr 05, 2018 11:33
[2018-04-05 12:00] VITALS: BP 123/70
--- NOTE | 2018-04-05 12:03 | Cardiac Electrophysiology PN ---
Assessment/Plan Status Narrative Technically difficult study due to patient was contracted. Study quality precludes accurate assessment of regional wall motion. Normal left ventricular chamber size, systolic function and wall motion. Left ventricular ejection fraction estimated to be 60-65 %. Mild left ventricular hypertrophy. Small circumferential pericardial effusion. Mild left atrial enlargement. Right cardiac chamber sizes are within normal limits. Aortic valve calcification with decreased cusp excursion c/w aortic stenosis. Mildly thickened mitral valve leaflets with normal excursion. Moderate mitral annulus and aortic root calcification. Normal pulmonic valve structure. Normal tricuspid valve structure. Subcostal views not obtainable due to G tube. Assessment/Plan 1. Paroxysmal atrial fibrillation with rapid ventricular response. Off Cardizem drip as BP dropped to 70s. Echo EF 65%. On Digoxin 0.125 iv daily and Amio GT 2. Urosepsis. On IV antibiotic per ID. 3. Hypotension, off levophed and on IV fluid. 4. Sacral decubitus ulcer. 5. Dementia. 6. Dysphagia. S/P G-tube placement 03/21/17 7. Pleural effusion.S/P 200 cc L Thoracentesis DW RN Subjective Subjective In atrial fib with rate 110-120s.Had 200cc Left lung thoracentesis yesterday Objective Last 24 Hour Vital Signs Date Time Temp Pulse Resp B/P (MAP) Pulse Ox O2 Delivery O2 Flow Rate FiO2 04/05/18 08:40 107 04/05/18 08:00 105 04/05/18 08:00 98.4 107 18 105/63 (77) 97 04/05/18 08:00 Venturi Mask 15.0 Venturi Mask 15.0 04/05/18 07:47 107 22 98 Bi-pap 40 04/05/18 07:45 97 Venturi Mask 10.0 45 04/05/18 07:45 Venturi Mask 10.0 45 04/05/18 07:40 107 20 96 Venturi Mask 10.0 45 04/05/18 05:04 98 18 98 Full Face 40 04/05/18 04:00 98.8 101 28 100/68 (79) 99 04/05/18 04:00 40 04/05/18 04:00 Venturi Mask 15.0 Venturi Mask 15.0 04/05/18 03:41 103 04/05/18 02:41 103 21 98 Full Face 40 04/05/18 00:43 108 25 99 Bi-pap 40 04/05/18 00:33 111 30 97 Bi-pap 40 04/05/18 00:24 107 32 96 Full Face 40 04/05/18 00:00 97.2 105 28 118/74 (89) 95 04/05/18 00:00 Venturi Mask 15.0 Venturi Mask 15.0 04/05/18 00:00 106 04/05/18 00:00 40 04/04/18 20:00 97 04/04/18 20:00 15.0 45 04/04/18 20:00 97.9 104 30 148/68 (94) 98 04/04/18 20:00 Venturi Mask 15.0 Venturi Mask 15.0 04/04/18 19:50 98 22 98 Venturi Mask 10.0 45 04/04/18 19:43 Venturi Mask 10.0 45 04/04/18 19:42 98 Venturi Mask 10.0 45 04/04/18 19:40 96 24 97 Venturi Mask 10.0 45 04/04/18 16:00 Venturi Mask 15.0 Venturi Mask 15.0 04/04/18 16:00 98.6 101 24 109/68 (82) 96 04/04/18 16:00 97 04/04/18 13:32 105 24 95 Venturi Mask 10.0 45 04/04/18 13:20 102 22 95 Venturi Mask 10.0 45 04/04/18 12:04 98.1 101 24 114/67 (83) 95 Intake and Output 04/04/18 04/05/18 18:59 06:59 Intake Total 550 ml 450 ml Output Total 600 ml 525 ml Balance -50 ml -75 ml Intake Free Water 200 ml 100 ml IV Total 110 ml 110 ml Tube Feeding 240 ml 240 ml Output Urine Total 400 ml 450 ml Stool Total 75 ml Other 200 ml # Bowel Movements 160 150 Laboratory Tests Test 04/04/18 14:10 04/05/18 04:00 Body Fluid Source Thoracentesis Body Fluid Volume 24 mL Body Fluid Appearance Clear (Clear) Body Fluid RBC 186 /CUMM Body Fluid Total Nucleated Cells 209 /CUMM Body Fluid Polynuclear WBCs (%) 75 % Body Fluid Mononuclear WBCs (%) 19 % Body Fluid Mesothelial Cells (%) 6 % Body Fluid Glucose Pending Body Fluid Total Protein Pending Body Fluid Albumin Pending White Blood Count 11.0 K/UL (4.8-10.8) H Red Blood Count 2.96 M/UL (4.20-5.40) L Hemoglobin 9.0 G/DL (12.0-16.0) L Hematocrit 28.5 % (37.0-47.0) L Mean Corpuscular Volume 96 FL (80-99) Mean Corpuscular Hemoglobin 30.4 PG (27.0-31.0) Mean Corpuscular Hemoglobin Concent 31.6 G/DL (32.0-36.0) L Red Cell Distribution Width 15.6 % (11.6-14.8) H Platelet Count 307 K/UL (150-450) Mean Platelet Volume 4.8 FL (6.5-10.1) L Neutrophils (%) (Auto) 80.7 % (45.0-75.0) H Lymphocytes (%) (Auto) 10.1 % (20.0-45.0) L Monocytes (%) (Auto) 8.1 % (1.0-10.0) Eosinophils (%) (Auto) 0.4 % (0.0-3.0) Basophils (%) (Auto) 0.7 % (0.0-2.0) Sodium Level 140 MMOL/L (136-145) Potassium Level 4.0 MMOL/L (3.5-5.1) Chloride Level 104 MMOL/L (98-107) Carbon Dioxide Level 33 MMOL/L (21-32) H Anion Gap 3 mmol/L (5-15) L Blood Urea Nitrogen 14 mg/dL (7-18) Creatinine 0.5 MG/DL (0.55-1.30) L Estimat Glomerular Filtration Rate mL/min (>60) Glucose Level 103 MG/DL (74-106) Calcium Level 8.4 MG/DL (8.5-10.1) L Microbiology Date/Time Source Procedure Growth Status 04/04/18 14:10 Ascities Fluid Gram Stain - Final Resulted 04/04/18 14:10 Ascities Fluid Body Fluid Culture - Preliminary NO GROWTH Resulted Objective HEAD AND NECK: No JVD.Face Mask on. LUNGS: Coarse rhonchi bilaterally. CARDIOVASCULAR: Irregular S1 and S2 with no gallop. ABDOMEN: Status post colostomy. GT in place EXTREMITIES: No pitting edema Toluie,Fredrick MD Apr 05, 2018 12:03
[2018-04-05 16:00] VITALS: BP 110/68
--- NOTE | 2018-04-05 16:05 | Internal Med Progress Note ---
Subjective Date of Service: Apr 05, 2018 Physician Name Shankar Betts Attending Physician Davian Scott MD Current Medications Medications (Trade) Dose Ordered Sig/Cele Route PRN Reason Start Time Stop Time Status Last Admin Dose Admin Acetaminophen (Tylenol) 650 mg Q4H PRN PEG fever (temp>100.5F) 04/03/18 11:00 04/17/18 10:59 Acetylcysteine (Mucomyst) 200 mg Q6HRT HHN 04/03/18 13:00 05/03/18 12:59 04/05/18 13:06 Amiodarone HCl (Cordarone) 200 mg DAILY ORAL 04/04/18 09:00 05/04/18 08:59 04/05/18 08:37 Chlorhexidine Gluconate (Sahra-Hex 2%) 1 applic DAILY@2000 TOPIC 04/03/18 20:00 04/13/18 19:59 04/04/18 20:13 Digoxin (Lanoxin) 0.125 mg DAILY IVP 04/04/18 09:00 04/29/18 08:59 04/05/18 08:40 Ipratropium [place] (Atrovent) 500 mcg Q4H PRN HHN Shortness of Breath 04/03/18 11:00 04/08/18 10:59 04/05/18 13:06 Meropenem 1 gm/ Sodium Chloride 55 ml @ 110 mls/hr Q12H IVPB 04/03/18 17:00 04/08/18 16:59 04/05/18 05:28 Metoclopramide HCl (Reglan) 10 mg EVERY 8 HOURS GT 04/03/18 14:00 05/02/18 13:59 04/05/18 14:13 Olanzapine (ZyPREXA) 2.5 mg Q6H PRN GT agitation 04/03/18 11:00 04/07/18 10:59 Pantoprazole (Protonix) 40 mg EVERY 12 HOURS IVP 04/03/18 21:00 04/26/18 20:59 04/05/18 08:40 Polyethylene Glycol (Miralax) 17 gm DAILYPRN PRN GT Constipation 04/03/18 11:00 04/22/18 10:59 Tamsulosin HCl (Flomax) 0.4 mg BEDTIME ORAL 04/03/18 21:00 04/05/18 20:59 04/04/18 20:13 Vancomycin HCl (Vanco rx to dose) 1 ea DAILY PRN MISC Per rx protocol 04/03/18 11:00 05/03/18 10:59 Vancomycin HCl 500 mg/Dextrose 110 ml @ 110 mls/hr Q12HR@0800,2000 IVPB 04/03/18 20:00 04/07/18 23:59 04/05/18 08:36 Allergies: Coded Allergies: No Known Allergies (Unverified , 03/06/18) ROS Limited/Unobtainable: Yes Subjective 87 YO F admitted with hematuria and gen weakness. Now pyelonephritis respiratory distress and sepsis. Cover for Int Med-Dr Scott. CALISTA. On levophed ; Tolerating venturi mask. Afib with RVR Objective Last Vital Signs Date Time Temp Pulse Resp B/P (MAP) Pulse Ox O2 Delivery O2 Flow Rate FiO2 04/05/18 13:06 110 24 98 Venturi Mask 10.0 45 04/05/18 12:00 97.1 123/70 (87) Laboratory Tests Test 04/05/18 04:00 White Blood Count 11.0 K/UL (4.8-10.8) H Red Blood Count 2.96 M/UL (4.20-5.40) L Hemoglobin 9.0 G/DL (12.0-16.0) L Hematocrit 28.5 % (37.0-47.0) L Mean Corpuscular Volume 96 FL (80-99) Mean Corpuscular Hemoglobin 30.4 PG (27.0-31.0) Mean Corpuscular Hemoglobin Concent 31.6 G/DL (32.0-36.0) L Red Cell Distribution Width 15.6 % (11.6-14.8) H Platelet Count 307 K/UL (150-450) Mean Platelet Volume 4.8 FL (6.5-10.1) L Neutrophils (%) (Auto) 80.7 % (45.0-75.0) H Lymphocytes (%) (Auto) 10.1 % (20.0-45.0) L Monocytes (%) (Auto) 8.1 % (1.0-10.0) Eosinophils (%) (Auto) 0.4 % (0.0-3.0) Basophils (%) (Auto) 0.7 % (0.0-2.0) Sodium Level 140 MMOL/L (136-145) Potassium Level 4.0 MMOL/L (3.5-5.1) Chloride Level 104 MMOL/L (98-107) Carbon Dioxide Level 33 MMOL/L (21-32) H Anion Gap 3 mmol/L (5-15) L Blood Urea Nitrogen 14 mg/dL (7-18) Creatinine 0.5 MG/DL (0.55-1.30) L Estimat Glomerular Filtration Rate mL/min (>60) Glucose Level 103 MG/DL (74-106) Calcium Level 8.4 MG/DL (8.5-10.1) L Microbiology Date/Time Source Procedure Growth Status 04/04/18 14:10 Ascities Fluid Gram Stain - Final Resulted 04/04/18 14:10 Ascities Fluid Body Fluid Culture - Preliminary NO GROWTH Resulted Intake and Output 04/04/18 04/05/18 18:59 06:59 Intake Total 550 ml 450 ml Output Total 600 ml 525 ml Balance -50 ml -75 ml Intake Free Water 200 ml 100 ml IV Total 110 ml 110 ml Tube Feeding 240 ml 240 ml Output Urine Total 400 ml 450 ml Stool Total 75 ml Other 200 ml # Bowel Movements 160 150 Objective PHYSICAL EXAMINATION: GENERAL: The patient is a well-developed and well-nourished white female, in no apparent distress. HEENT: Eyes, pupils are equal and responsive to light and accommodation. Extraocular movements are intact. NECK: Supple without lymphadenopathy. CHEST: venturi mask; crackles and rales at bases; Decreased breath sounds at bilateral bases. Otherwise, clear to auscultation without wheezes or rales. CARDIOVASCULAR: Tachycardic. Regular rate and rhythm. S1, S2 are normal without murmurs, rubs, or gallops. ABDOMEN: Soft, nontender, and nondistended. Positive bowel sounds. No evidence of hepatosplenomegaly. Currently, no rebound or guarding noted. EXTREMITIES: Negative for clubbing, cyanosis, or edema. RECTAL/GENITAL: Deferred. NEUROLOGIC: Cranial nerves II through XII are grossly intact without focal deficits. Assessment/Plan Problem List: (1) Pyelonephritis Assessment & Plan: Pseudamonas and strep. See ID note-Continue meropenem and vanco (2) Sepsis (3) HTN (hypertension) Assessment & Plan: Currently hypotensive (4) Hypercholesteremia (5) Sacral decubitus ulcer, stage IV Assessment & Plan: See surgery note-dr Ramsay (6) Urinary tract infection Assessment & Plan: pseudamonas; continue cefepime per ID (7) Pneumonia Assessment & Plan: New RLL. Previously MRSA. Continue vanco and meropenem per ID (8) Atrial fibrillation with RVR Assessment & Plan: Continue digoxin and amiodrone per cardiology (9) Respiratory distress Assessment & Plan: On venturi mask Assessment/Plan prognosis guarded Shankar Betts MD Apr 05, 2018 16:05
[2018-04-05] MEDS ORDERED: Tubing IV Secondary IV ONE (19:38)
[2018-04-05] MEDS ORDERED: NS 275ml ONE (19:38)
[2018-04-05] MEDS ORDERED: NS 500ML ONE (19:46)
[2018-04-05 20:00] VITALS: BP 109/77
[2018-04-05] MEDS: Dyna-Hex 2% Top Sol 2oz TOPIC SCH (20:27)
[2018-04-05] MEDS: Acetaminophen 650mg/20.3ml PEG PRN (21:22)
[2018-04-06] VITALS: BP 104/51
[2018-04-06] MEDS: Acetylcysteine 20% Soln 4ml HHN SCH ×4 (00:01→19:31)
[2018-04-06 04:00] VITALS: BP 105/66
[2018-04-06] MEDS: Metoclopramide 10mg/10ml Liq GT SCH ×3 (05:07→21:10)
[2018-04-06] MEDS: Meropenem 1 GM in NS 55 ML IVPB SCH ×2 (05:07→16:05)
[2018-04-06 05:58] LABS: ANION GAP 2 mmol/L (5-15); BLOOD UREA NITROGEN 11 mg/dL (7-18); CARBON DIOXIDE 33 MMOL/L (21-32); CHLORIDE 105 MMOL/L (98-107); CREATININE 0.5 MG/DL (0.55-1.30); SODIUM 140 MMOL/L (136-145)
[2018-04-06] MEDS: Ipratropium 0.02% Inh Soln 2.5ml UD HHN PRN ×4 (07:14→19:31)
[2018-04-06 07:36] LABS: BASOPHILS % (AUTO) 0.7 % (0.0-2.0); EOSINOPHILS % (AUTO) 0.6 % (0.0-3.0); HEMATOCRIT 26.7 % (37.0-47.0); HEMOGLOBIN 8.7 G/DL (12.0-16.0); MEAN CORPUSCULAR VOLUME 95 FL (80-99); MONOCYTES % (AUTO) 9.8 % (1.0-10.0); NEUTROPHILS % (AUTO) 78.9 % (45.0-75.0); PLATELET COUNT 298 K/UL (150-450); RED BLOOD COUNT 2.82 M/UL (4.20-5.40); WHITE BLOOD COUNT 12.3 K/UL (4.8-10.8)
--- NOTE | 2018-04-06 07:38 | Pulmonology Progress Note ---
Assessment/Plan Assessment/Plan ASSESSMENT Acute hypoxemic resp failure requiring BiPAP and Venturi mask Sepsis with Proteus bacteremia septic shock-resolved UTI with Pseudomonas and Enterococci PNA with MRSA and Pseudomonas Persistent left pleural effusion s/p thoracentesis L pleural effusion -200 cc severe pulmonary HTN sacral decub st 4, POA s/p excisional debridement of sacral decub 1/3 PAF with RVR dysphagia, s/p PEG 1/4 functional quadriplegia dementia severe protein calorie malnutrition colostomy in place PLAN OF CARE [place]IST[place] off Levophed and Cardizem drip suppl O2, titrate O2 to keep sat above 92% pulmonary toilet s/p tap L pleural effusion -200 cc pleural fluid no evidence of infection fup CXR with better aeration but still persistent left pleural effusion , likely loculated CXR in am cytology of pleural fluid pending abx as per ID recs aspiration precaution , s/p PEG 03/21 , G-tube feeding , monitor tolerance GI follows GI prophylaxis colostomy care, monitor output Echo with EF 60-65 and RVSP 77 episode of AV block at night, [facility]per cardio recs CT C/A/P noted venous duplex bilateral lower extremity negative cardio follows BP closely monitored, stable off pressors on digoxin and amiodarone nutritional recommendation implemented in plan of care wound care as per surgeon recommendation supportive care pain management case discussed and evaluated by supervising physician Subjective Allergies: Coded Allergies: No Known Allergies (Unverified , 03/06/18) Subjective still with leucocytosis, afebrile still on VM 45% unable to wean done episode of AV block type 2 at night, currently in [facility] up to 105 Objective Last 24 Hour Vital Signs Date Time Temp Pulse Resp B/P (MAP) Pulse Ox O2 Delivery O2 Flow Rate FiO2 04/06/18 07:16 105 24 100 Venturi Mask 10.0 45 04/06/18 07:15 105 26 100 Venturi Mask 10.0 45 04/06/18 07:15 Venturi Mask 10.0 45 04/06/18 07:15 100 Venturi Mask 10.0 45 04/06/18 04:44 96 21 99 Full Face 40 04/06/18 04:00 98.5 100 28 105/66 (79) 98 04/06/18 04:00 95 04/06/18 04:00 40 04/06/18 04:00 Venturi Mask 15.0 Venturi Mask 15.0 04/06/18 02:58 93 20 99 Full Face 40 04/06/18 00:55 95 22 100 Full Face 40 04/06/18 00:12 98 22 99 Bi-pap 45 04/06/18 00:01 97 23 97 Bi-pap 45 04/06/18 00:00 98.8 109 23 104/51 (68) 99 04/06/18 00:00 Venturi Mask 15.0 Venturi Mask 15.0 04/06/18 00:00 108 04/06/18 00:00 40 04/05/18 23:04 96 16 99 Full Face 40 04/05/18 21:52 98.8 04/05/18 21:32 98.9 04/05/18 20:26 97 27 Venturi Mask 10.0 45 04/05/18 20:00 100.0 120 24 109/77 (88) 92 04/05/18 20:00 118 04/05/18 20:00 40 04/05/18 20:00 Venturi Mask 15.0 Venturi Mask 15.0 04/05/18 19:15 101 24 99 Venturi Mask 10.0 45 04/05/18 19:05 96 22 98 Venturi Mask 10.0 45 04/05/18 19:05 98 Venturi Mask 10.0 45 04/05/18 19:05 Venturi Mask 10.0 45 04/05/18 16:13 111 04/05/18 16:04 Venturi Mask 15.0 Venturi Mask 15.0 04/05/18 16:00 98.8 115 19 110/68 (82) 94 04/05/18 13:06 110 24 98 Venturi Mask 10.0 45 04/05/18 13:00 113 26 98 Venturi Mask 10.0 45 04/05/18 12:00 97.1 116 18 123/70 (87) 96 04/05/18 12:00 114 04/05/18 12:00 Venturi Mask 15.0 Venturi Mask 15.0 04/05/18 08:40 107 04/05/18 08:01 Venturi Mask 15.0 Venturi Mask 15.0 04/05/18 08:00 105 04/05/18 08:00 98.4 107 18 105/63 (77) 97 04/05/18 08:00 Venturi Mask 15.0 Venturi Mask 15.0 04/05/18 07:47 107 22 98 Venturi Mask 10.0 45 04/05/18 07:45 97 Venturi Mask 10.0 45 04/05/18 07:45 Venturi Mask 10.0 45 04/05/18 07:40 107 20 96 Venturi Mask 10.0 45 Intake and Output 04/05/18 04/06/18 19:00 07:00 Intake Total 840 ml 695 ml Output Total 300 ml 430 ml Balance 540 ml 265 ml Intake Free Water 300 ml 100 ml IV Total 110 ml Tube Feeding 420 ml 485 ml Other 120 ml Output Urine Total 300 ml 370 ml Stool Total 60 ml # Bowel Movements 200 150 Objective General Appearance: bedbound, awake, but poorly responsive, elderly female HEENT: normocephalic, atraumatic, anicteric, VM 45% Respiratory/Chest: decreased breath sounds Cardiovascular: normal peripheral pulses, no JVD, tachycardia - ST, LIJ CL intact Abdomen: normal bowel sounds, soft, non tender, G tube, colostomy in place, intact with brownish semisolid output Extremities: no edema, pedal pulses normal Skin: sacral decub st 3 POA Neurologic/Psychiatric: abnormal gait - bedbound , contracted Musculoskeletal: atrophy - BLE Microbiology Date/Time Source Procedure Growth Status 04/04/18 14:10 Ascities Fluid Gram Stain - Final Resulted 04/04/18 14:10 Ascities Fluid Body Fluid Culture - Preliminary NO GROWTH Resulted Laboratory Tests 04/06/18 04:00: White Blood Count [Pending], Red Blood Count [Pending], Hemoglobin [Pending], Hematocrit [Pending], Mean Corpuscular Volume [Pending], Mean Corpuscular Hemoglobin [Pending], Mean Corpuscular Hemoglobin Concent [Pending], Red Cell Distribution Width [Pending], Platelet Count [Pending], Mean Platelet Volume [ Pending], Neutrophils (%) (Auto) [Pending], Lymphocytes (%) (Auto) [Pending], Monocytes (%) (Auto) [Pending], Eosinophils (%) (Auto) [Pending], Basophils (%) (Auto) [Pending], Sodium Level 140, Potassium Level 4.0, Chloride Level 105, Carbon Dioxide Level 33H, Anion Gap 2L, Blood Urea Nitrogen 11, Creatinine 0.5L , Estimat Glomerular Filtration Rate , Glucose Level 117H, Calcium Level 8.0L Current Medications Medications (Trade) Dose Ordered Sig/Cele Route PRN Reason Start Time Stop Time Status Last Admin Dose Admin Acetaminophen (Tylenol) 650 mg Q4H PRN PEG fever (temp>100.5F) 04/03/18 11:00 04/17/18 10:59 04/05/18 21:22 Acetylcysteine (Mucomyst) 200 mg Q6HRT HHN 04/03/18 13:00 05/03/18 12:59 04/06/18 07:14 Amiodarone HCl (Cordarone) 200 mg DAILY ORAL 04/04/18 09:00 05/04/18 08:59 04/05/18 08:37 Chlorhexidine Gluconate (Sahra-Hex 2%) 1 applic DAILY@2000 TOPIC 04/03/18 20:00 04/13/18 19:59 04/05/18 20:27 Digoxin (Lanoxin) 0.125 mg DAILY IVP 04/04/18 09:00 04/29/18 08:59 04/05/18 08:40 Ipratropium [place] (Atrovent) 500 mcg Q4H PRN HHN Shortness of Breath 04/03/18 11:00 04/08/18 10:59 04/06/18 07:14 Meropenem 1 gm/ Sodium Chloride 55 ml @ 110 mls/hr Q12H IVPB 04/03/18 17:00 04/08/18 16:59 04/06/18 05:07 Metoclopramide HCl (Reglan) 10 mg EVERY 8 HOURS GT 04/03/18 14:00 05/02/18 13:59 04/06/18 05:07 Olanzapine (ZyPREXA) 2.5 mg Q6H PRN GT agitation 04/03/18 11:00 04/07/18 10:59 Pantoprazole (Protonix) 40 mg EVERY 12 HOURS IVP 04/03/18 21:00 04/26/18 20:59 04/05/18 20:27 Polyethylene Glycol (Miralax) 17 gm DAILYPRN PRN GT Constipation 04/03/18 11:00 04/22/18 10:59 Vancomycin HCl (Vanco rx to dose) 1 ea DAILY PRN MISC Per rx protocol 04/03/18 11:00 05/03/18 10:59 Vancomycin HCl 500 mg/Dextrose 110 ml @ 110 mls/hr Q12HR@0800,2000 IVPB 04/03/18 20:00 04/07/18 23:59 04/05/18 20:27 Emy Gutierrez NP Apr 06, 2018 07:38
[2018-04-06 08:00] VITALS: BP 119/57
[2018-04-06] MEDS: Vancomycin 500 MG in D5W 110 ML IVPB SCH ×2 (08:12→21:10)
[2018-04-06] MEDS: Amiodarone 200mg tab ORAL SCH (09:05)
[2018-04-06] MEDS: Pantoprazole Inj IVP SCH ×2 (09:05→21:10)
[2018-04-06] MEDS: Digoxin 0.5mg/2ml Inj IVP SCH (09:06)
[2018-04-06] MEDS ORDERED: NS 275ml ONE (10:50)
[2018-04-06 12:00] VITALS: BP 118/60
--- NOTE | 2018-04-06 13:27 | Internal Med Progress Note ---
Subjective Date of Service: Apr 06, 2018 Physician Name Shankar Betts Attending Physician Davian Scott MD Current Medications Medications (Trade) Dose Ordered Sig/Cele Route PRN Reason Start Time Stop Time Status Last Admin Dose Admin Acetaminophen (Tylenol) 650 mg Q4H PRN PEG fever (temp>100.5F) 04/03/18 11:00 04/17/18 10:59 04/05/18 21:22 Acetylcysteine (Mucomyst) 200 mg Q6HRT HHN 04/03/18 13:00 05/03/18 12:59 04/06/18 12:58 Amiodarone HCl (Cordarone) 200 mg DAILY ORAL 04/04/18 09:00 05/04/18 08:59 04/06/18 09:05 Chlorhexidine Gluconate (Sahra-Hex 2%) 1 applic DAILY@2000 TOPIC 04/03/18 20:00 04/13/18 19:59 04/05/18 20:27 Digoxin (Lanoxin) 0.125 mg DAILY IVP 04/04/18 09:00 04/29/18 08:59 04/06/18 09:06 Ipratropium [place] (Atrovent) 500 mcg Q4H PRN HHN Shortness of Breath 04/06/18 11:00 04/11/18 10:59 04/06/18 12:59 Meropenem 1 gm/ Sodium Chloride 55 ml @ 110 mls/hr Q12H IVPB 04/03/18 17:00 04/08/18 16:59 04/06/18 05:07 Metoclopramide HCl (Reglan) 10 mg EVERY 8 HOURS GT 04/03/18 14:00 05/02/18 13:59 04/06/18 13:07 Olanzapine (ZyPREXA) 2.5 mg Q6H PRN GT agitation 04/03/18 11:00 04/07/18 10:59 Pantoprazole (Protonix) 40 mg EVERY 12 HOURS IVP 04/03/18 21:00 04/26/18 20:59 04/06/18 09:05 Polyethylene Glycol (Miralax) 17 gm DAILYPRN PRN GT Constipation 04/03/18 11:00 04/22/18 10:59 Vancomycin HCl (Vanco rx to dose) 1 ea DAILY PRN MISC Per rx protocol 04/03/18 11:00 05/03/18 10:59 Vancomycin HCl 500 mg/Dextrose 110 ml @ 110 mls/hr Q12HR@0800,2000 IVPB 04/03/18 20:00 04/07/18 23:59 04/06/18 08:12 Allergies: Coded Allergies: No Known Allergies (Unverified , 03/06/18) ROS Limited/Unobtainable: Yes Subjective 87 YO F admitted with hematuria and gen weakness. Now pyelonephritis respiratory distress and sepsis. Cover for Int Med-Dr Scott. CALISTA. On levophed ; Tolerating venturi mask. Afib with RVR Objective Last Vital Signs Date Time Temp Pulse Resp B/P (MAP) Pulse Ox O2 Delivery O2 Flow Rate FiO2 04/06/18 13:01 104 24 97 Venturi Mask 10.0 45 04/06/18 12:00 99.5 118/60 (79) Laboratory Tests Test 04/06/18 04:00 04/06/18 09:34 White Blood Count 12.3 K/UL (4.8-10.8) H Red Blood Count 2.82 M/UL (4.20-5.40) L Hemoglobin 8.7 G/DL (12.0-16.0) L Hematocrit 26.7 % (37.0-47.0) L Mean Corpuscular Volume 95 FL (80-99) Mean Corpuscular Hemoglobin 31.1 PG (27.0-31.0) H Mean Corpuscular Hemoglobin Concent 32.8 G/DL (32.0-36.0) Red Cell Distribution Width 15.0 % (11.6-14.8) H Platelet Count 298 K/UL (150-450) Mean Platelet Volume 4.8 FL (6.5-10.1) L Neutrophils (%) (Auto) 78.9 % (45.0-75.0) H Lymphocytes (%) (Auto) 10.0 % (20.0-45.0) L Monocytes (%) (Auto) 9.8 % (1.0-10.0) Eosinophils (%) (Auto) 0.6 % (0.0-3.0) Basophils (%) (Auto) 0.7 % (0.0-2.0) Sodium Level 140 MMOL/L (136-145) Potassium Level 4.0 MMOL/L (3.5-5.1) Chloride Level 105 MMOL/L (98-107) Carbon Dioxide Level 33 MMOL/L (21-32) H Anion Gap 2 mmol/L (5-15) L Blood Urea Nitrogen 11 mg/dL (7-18) Creatinine 0.5 MG/DL (0.55-1.30) L Estimat Glomerular Filtration Rate mL/min (>60) Glucose Level 117 MG/DL (74-106) H Calcium Level 8.0 MG/DL (8.5-10.1) L Arterial Blood pH 7.508 (7.350-7.450) Arterial Blood Partial Pressure CO2 42.4 mmHg (35.0-45.0) Arterial Blood Partial Pressure O2 89.9 mmHg (75.0-100.0) Arterial Blood HCO3 32.9 mmol/L (22.0-26.0) H Arterial Blood Oxygen Saturation 96.8 % (95-100) Arterial Blood Base Excess 9.0 (-2-2) H Temo Test Positive Microbiology Date/Time Source Procedure Growth Status 04/04/18 14:10 Ascities Fluid Gram Stain - Final Resulted 04/04/18 14:10 Ascities Fluid Body Fluid Culture - Preliminary NO GROWTH AFTER 24 HOURS Resulted Intake and Output 04/05/18 04/06/18 19:00 07:00 Intake Total 840 ml 695 ml Output Total 300 ml 430 ml Balance 540 ml 265 ml Intake Free Water 300 ml 100 ml IV Total 110 ml Tube Feeding 420 ml 485 ml Other 120 ml Output Urine Total 300 ml 370 ml Stool Total 60 ml # Bowel Movements 200 150 Objective PHYSICAL EXAMINATION: GENERAL: The patient is a well-developed and well-nourished white female, in no apparent distress. HEENT: Eyes, pupils are equal and responsive to light and accommodation. Extraocular movements are intact. NECK: Supple without lymphadenopathy. CHEST: venturi mask; crackles and rales at bases; Decreased breath sounds at bilateral bases. Otherwise, clear to auscultation without wheezes or rales. CARDIOVASCULAR: Tachycardic. Regular rate and rhythm. S1, S2 are normal without murmurs, rubs, or gallops. ABDOMEN: Soft, nontender, and nondistended. Positive bowel sounds. No evidence of hepatosplenomegaly. Currently, no rebound or guarding noted. EXTREMITIES: Negative for clubbing, cyanosis, or edema. RECTAL/GENITAL: Deferred. NEUROLOGIC: Cranial nerves II through XII are grossly intact without focal deficits. Assessment/Plan Problem List: (1) Pyelonephritis Assessment & Plan: Pseudamonas and strep. See ID note-Continue meropenem and vanco (2) Sepsis (3) HTN (hypertension) Assessment & Plan: Currently hypotensive (4) Hypercholesteremia (5) Sacral decubitus ulcer, stage IV Assessment & Plan: See surgery note-dr Ramsay (6) Urinary tract infection Assessment & Plan: pseudamonas; continue cefepime per ID (7) Pneumonia Assessment & Plan: New RLL. Previously MRSA. Continue vanco and meropenem per ID (8) Atrial fibrillation with RVR Assessment & Plan: Continue digoxin and amiodrone per cardiology (9) Respiratory distress Assessment & Plan: On venturi mask Assessment/Plan prognosis guarded Shankar Betts MD Apr 06, 2018 13:27
--- NOTE | 2018-04-06 14:14 | Cardiac Electrophysiology PN ---
Assessment/Plan Status Narrative Technically difficult study due to patient was contracted. Study quality precludes accurate assessment of regional wall motion. Normal left ventricular chamber size, systolic function and wall motion. Left ventricular ejection fraction estimated to be 60-65 %. Mild left ventricular hypertrophy. Small circumferential pericardial effusion. Mild left atrial enlargement. Right cardiac chamber sizes are within normal limits. Aortic valve calcification with decreased cusp excursion c/w aortic stenosis. Mildly thickened mitral valve leaflets with normal excursion. Moderate mitral annulus and aortic root calcification. Normal pulmonic valve structure. Normal tricuspid valve structure. Subcostal views not obtainable due to G tube. Assessment/Plan 1. Paroxysmal atrial fibrillation with rapid ventricular response. Off Cardizem drip Echo EF 65%. Change Digoxin 0.125 iv to GT daily and Amio 200 GT Converted to SR 2. Urosepsis. On IV antibiotic per ID. 3. Hypotension, off levophed and on IV fluid. 4. Sacral decubitus ulcer. 5. Dementia. 6. Dysphagia. S/P G-tube placement 03/21/17 7. Pleural effusion.S/P 200 cc L Thoracentesis DW RN Subjective Subjective Converted to Sr and had episode of Wenckebach. Had 200cc Left lung thoracentesis 04/04/18 Objective Last 24 Hour Vital Signs Date Time Temp Pulse Resp B/P (MAP) Pulse Ox O2 Delivery O2 Flow Rate FiO2 04/06/18 13:01 104 24 97 Venturi Mask 10.0 45 04/06/18 12:58 102 26 98 Venturi Mask 10.0 45 04/06/18 12:00 99.5 106 28 118/60 (79) 97 04/06/18 12:00 Venturi Mask 10.0 Venturi Mask 10.0 04/06/18 11:49 101 04/06/18 09:06 104 04/06/18 08:00 Venturi Mask 10.0 Venturi Mask 10.0 04/06/18 08:00 98.8 104 30 119/57 (77) 95 04/06/18 07:47 98 04/06/18 07:16 105 24 100 Venturi Mask 10.0 45 04/06/18 07:15 105 26 100 Venturi Mask 10.0 45 04/06/18 07:15 Venturi Mask 10.0 45 04/06/18 07:15 100 Venturi Mask 10.0 45 04/06/18 04:44 96 21 99 Full Face 40 04/06/18 04:00 98.5 100 28 105/66 (79) 98 04/06/18 04:00 95 04/06/18 04:00 40 04/06/18 04:00 Venturi Mask 15.0 Venturi Mask 15.0 04/06/18 02:58 93 20 99 Full Face 40 04/06/18 00:55 95 22 100 Full Face 40 04/06/18 00:12 98 22 99 Bi-pap 45 04/06/18 00:01 97 23 97 Bi-pap 45 04/06/18 00:00 98.8 109 23 104/51 (68) 99 04/06/18 00:00 Venturi Mask 15.0 Venturi Mask 15.0 04/06/18 00:00 108 04/06/18 00:00 40 04/05/18 23:04 96 16 99 Full Face 40 04/05/18 21:52 98.8 04/05/18 21:32 98.9 04/05/18 20:26 97 27 Venturi Mask 10.0 45 04/05/18 20:00 100.0 120 24 109/77 (88) 92 04/05/18 20:00 118 04/05/18 20:00 40 04/05/18 20:00 Venturi Mask 15.0 Venturi Mask 15.0 04/05/18 19:15 101 24 99 Venturi Mask 10.0 45 04/05/18 19:05 96 22 98 Venturi Mask 10.0 45 04/05/18 19:05 98 Venturi Mask 10.0 45 04/05/18 19:05 Venturi Mask 10.0 45 04/05/18 16:13 111 04/05/18 16:04 Venturi Mask 15.0 Venturi Mask 15.0 04/05/18 16:00 98.8 115 19 110/68 (82) 94 Intake and Output 04/05/18 04/06/18 19:00 07:00 Intake Total 840 ml 695 ml Output Total 300 ml 430 ml Balance 540 ml 265 ml Intake Free Water 300 ml 100 ml IV Total 110 ml Tube Feeding 420 ml 485 ml Other 120 ml Output Urine Total 300 ml 370 ml Stool Total 60 ml # Bowel Movements 200 150 Laboratory Tests Test 04/06/18 04:00 04/06/18 09:34 White Blood Count 12.3 K/UL (4.8-10.8) H Red Blood Count 2.82 M/UL (4.20-5.40) L Hemoglobin 8.7 G/DL (12.0-16.0) L Hematocrit 26.7 % (37.0-47.0) L Mean Corpuscular Volume 95 FL (80-99) Mean Corpuscular Hemoglobin 31.1 PG (27.0-31.0) H Mean Corpuscular Hemoglobin Concent 32.8 G/DL (32.0-36.0) Red Cell Distribution Width 15.0 % (11.6-14.8) H Platelet Count 298 K/UL (150-450) Mean Platelet Volume 4.8 FL (6.5-10.1) L Neutrophils (%) (Auto) 78.9 % (45.0-75.0) H Lymphocytes (%) (Auto) 10.0 % (20.0-45.0) L Monocytes (%) (Auto) 9.8 % (1.0-10.0) Eosinophils (%) (Auto) 0.6 % (0.0-3.0) Basophils (%) (Auto) 0.7 % (0.0-2.0) Sodium Level 140 MMOL/L (136-145) Potassium Level 4.0 MMOL/L (3.5-5.1) Chloride Level 105 MMOL/L (98-107) Carbon Dioxide Level 33 MMOL/L (21-32) H Anion Gap 2 mmol/L (5-15) L Blood Urea Nitrogen 11 mg/dL (7-18) Creatinine 0.5 MG/DL (0.55-1.30) L Estimat Glomerular Filtration Rate mL/min (>60) Glucose Level 117 MG/DL (74-106) H Calcium Level 8.0 MG/DL (8.5-10.1) L Arterial Blood pH 7.508 (7.350-7.450) Arterial Blood Partial Pressure CO2 42.4 mmHg (35.0-45.0) Arterial Blood Partial Pressure O2 89.9 mmHg (75.0-100.0) Arterial Blood HCO3 32.9 mmol/L (22.0-26.0) H Arterial Blood Oxygen Saturation 96.8 % (95-100) Arterial Blood Base Excess 9.0 (-2-2) H Temo Test Positive Microbiology Date/Time Source Procedure Growth Status 04/04/18 14:10 Ascities Fluid Gram Stain - Final Resulted 04/04/18 14:10 Ascities Fluid Body Fluid Culture - Preliminary NO GROWTH AFTER 24 HOURS Resulted Objective HEAD AND NECK: No JVD.Venturi Mask on. LUNGS: Coarse rhonchi bilaterally. CARDIOVASCULAR: Irregular S1 and S2 with no gallop. ABDOMEN: Status post colostomy. GT in place EXTREMITIES: No pitting edema Fredrick Burk MD Apr 06, 2018 14:14
[2018-04-06 16:00] VITALS: BP 116/62
[2018-04-06 20:00] VITALS: BP 129/62
[2018-04-06] MEDS: Dyna-Hex 2% Top Sol 2oz TOPIC SCH (21:10)
[2018-04-06] MEDS: Acetaminophen 650mg/20.3ml PEG PRN (21:11)
[2018-04-07] VITALS: BP 111/63
[2018-04-07] MEDS: Acetylcysteine 20% Soln 4ml HHN SCH ×4 (01:28→19:17)
[2018-04-07] MEDS: Ipratropium 0.02% Inh Soln 2.5ml UD HHN PRN ×4 (01:28→19:17)
[2018-04-07 04:00] VITALS: BP 111/63
[2018-04-07] MEDS: Meropenem 1 GM in NS 55 ML IVPB SCH ×2 (05:23→16:00)
[2018-04-07] MEDS: Metoclopramide 10mg/10ml Liq GT SCH ×3 (05:23→21:42)
[2018-04-07 06:02] LABS: EOSINOPHILS % (AUTO) 1.4 % (0.0-3.0); HEMATOCRIT 25.5 % (37.0-47.0); HEMOGLOBIN 8.2 G/DL (12.0-16.0); LYMPHOCYTES % (AUTO) 11.1 % (20.0-45.0); MEAN CORPUSCULAR VOLUME 96 FL (80-99); MONOCYTES % (AUTO) 9.3 % (1.0-10.0); NEUTROPHILS % (AUTO) 77.3 % (45.0-75.0); PLATELET COUNT 283 K/UL (150-450); RED BLOOD COUNT 2.67 M/UL (4.20-5.40); RED CELL DISTRIBUTION WIDTH 14.6 % (11.6-14.8); WHITE BLOOD COUNT 14.1 K/UL (4.8-10.8)
[2018-04-07 06:23] LABS: ANION GAP 1 mmol/L (5-15); BLOOD UREA NITROGEN 13 mg/dL (7-18); CALCIUM 7.8 MG/DL (8.5-10.1); CARBON DIOXIDE 34 MMOL/L (21-32); CHLORIDE 104 MMOL/L (98-107); CREATININE 0.4 MG/DL (0.55-1.30); POTASSIUM 3.9 MMOL/L (3.5-5.1); SODIUM 139 MMOL/L (136-145)
[2018-04-07 08:00] VITALS: BP 104/52
[2018-04-07] MEDS: Pantoprazole Inj IVP SCH ×2 (08:47→20:23)
[2018-04-07] MEDS: Vancomycin 500 MG in D5W 110 ML IVPB SCH (08:47)
[2018-04-07] MEDS: Digoxin 0.125mg tab GT SCH (08:48)
[2018-04-07] MEDS: Amiodarone 200mg tab GT SCH (08:56)
--- NOTE | 2018-04-07 10:30 | GI Progress Note ---
Assessment/Plan Problems: (1) Encounter for PEG (percutaneous endoscopic gastrostomy) ICD Codes: Z43.1 - Encounter for attention to gastrostomy SNOMED: 967743565, 957434225 (2) At high risk for aspiration ICD Codes: Z91.89 - Other specified personal risk factors, not elsewhere classified SNOMED: 385090582 (3) Protein-calorie malnutrition, severe ICD Codes: E43 - Unspecified severe protein-calorie malnutrition SNOMED: 698122819 (4) Dysphasia ICD Codes: R47.02 - Dysphasia SNOMED: 19057826 Status: progressing Status Narrative Discussed with Dr. Velez Assessment/Plan s/p GT placement GTF and care, reported patient is not tolerating her G-tube feedings Increase Reglan to 10 mg ATC, restart feedings at low rate then advance to goal fu labs Follow-up pulmonary recommendations The patient was seen and examined at bedside and all new and available data was reviewed in the patients chart. I agree with the above findings, impression and plan. (Patient seen earlier today. Signature stamp does not reflect patient encounter time.). - Ernesto Velez MD Subjective Subjective Limited Objective Last 24 Hour Vital Signs Date Time Temp Pulse Resp B/P (MAP) Pulse Ox O2 Delivery O2 Flow Rate FiO2 04/07/18 08:48 93 04/07/18 08:00 98.4 93 28 104/52 (69) 95 93 04/07/18 08:00 Venturi Mask 15.0 Venturi Mask 15.0 04/07/18 07:23 95 24 99 Venturi Mask 10.0 45 04/07/18 07:15 Bi-pap 40 04/07/18 07:14 96 27 100 Bi-pap 40 04/07/18 07:14 99 Bi-pap 40 04/07/18 07:13 96 32 100 Full Face 40 04/07/18 04:56 97 20 99 Full Face 40 04/07/18 04:00 98.8 92 22 111/63 (79) 100 92 04/07/18 04:00 Venturi Mask 15.0 Bi-pap 04/07/18 03:20 91 04/07/18 02:57 99 20 98 Full Face 40 04/07/18 01:37 96 21 100 Bi-pap 40 04/07/18 01:28 95 19 99 Bi-pap 40 04/07/18 00:48 106 21 99 Full Face 40 04/07/18 00:00 99.4 101 24 111/63 (79) 99 101 04/07/18 00:00 Venturi Mask 15.0 Bi-pap 04/06/18 23:16 101 04/06/18 23:14 103 24 98 Full Face 40 04/06/18 21:41 99.1 04/06/18 20:00 Venturi Mask 15.0 Venturi Mask 15.0 04/06/18 20:00 100.0 106 24 129/62 (84) 97 04/06/18 19:40 108 24 99 Venturi Mask 10.0 45 04/06/18 19:33 Venturi Mask 10.0 45 04/06/18 19:32 98 Venturi Mask 10.0 45 04/06/18 19:31 110 25 96 Venturi Mask 10.0 45 04/06/18 19:23 114 04/06/18 17:00 99.0 04/06/18 16:00 Venturi Mask 15.0 Venturi Mask 15.0 04/06/18 16:00 100.3 111 26 116/62 (80) 94 04/06/18 15:54 104 04/06/18 13:01 104 24 97 Venturi Mask 10.0 45 04/06/18 12:58 102 26 98 Venturi Mask 10.0 45 04/06/18 12:00 99.5 106 28 118/60 (79) 97 04/06/18 12:00 Venturi Mask 10.0 Venturi Mask 10.0 04/06/18 11:49 101 Intake and Output 04/06/18 04/07/18 19:00 07:00 Intake Total 805 ml 720 ml Output Total 580 ml 600 ml Balance 225 ml 120 ml Intake Free Water 130 ml 110 ml IV Total 165 ml 165 ml Tube Feeding 510 ml 445 ml Output Urine Total 550 ml 400 ml Stool Total 30 ml 200 ml # Bowel Movements 30 Laboratory Tests Test 04/07/18 03:30 White Blood Count 14.1 K/UL (4.8-10.8) H Red Blood Count 2.67 M/UL (4.20-5.40) L Hemoglobin 8.2 G/DL (12.0-16.0) L Hematocrit 25.5 % (37.0-47.0) L Mean Corpuscular Volume 96 FL (80-99) Mean Corpuscular Hemoglobin 30.9 PG (27.0-31.0) Mean Corpuscular Hemoglobin Concent 32.3 G/DL (32.0-36.0) Red Cell Distribution Width 14.6 % (11.6-14.8) Platelet Count 283 K/UL (150-450) Mean Platelet Volume 4.8 FL (6.5-10.1) L Neutrophils (%) (Auto) 77.3 % (45.0-75.0) H Lymphocytes (%) (Auto) 11.1 % (20.0-45.0) L Monocytes (%) (Auto) 9.3 % (1.0-10.0) Eosinophils (%) (Auto) 1.4 % (0.0-3.0) Basophils (%) (Auto) 1.0 % (0.0-2.0) Sodium Level 139 MMOL/L (136-145) Potassium Level 3.9 MMOL/L (3.5-5.1) Chloride Level 104 MMOL/L (98-107) Carbon Dioxide Level 34 MMOL/L (21-32) H Anion Gap 1 mmol/L (5-15) L Blood Urea Nitrogen 13 mg/dL (7-18) Creatinine 0.4 MG/DL (0.55-1.30) L Estimat Glomerular Filtration Rate mL/min (>60) Glucose Level 110 MG/DL (74-106) H Calcium Level 7.8 MG/DL (8.5-10.1) L Height (Feet): 5 Height (Inches): 3.00 Weight (Pounds): 156 General Appearance: WD/WN, no apparent distress, alert Cardiovascular: normal rate Respiratory/Chest: normal breath sounds, no respiratory distress, other - Venturi mask Abdominal Exam: normal bowel sounds, non tender, soft, GT site - Clean dry and intact Extremities: non-tender Thaddeus Galeana NP Apr 07, 2018 10:30
--- NOTE | 2018-04-07 10:33 | Infectious Diseases Prog Note ---
Assessment/Plan Assessment/Plan Assessment: Sepsis, recurrent- r.o line infection (bacteremia vs fungemia) UTI c/w bacteremia and prob early PNA -u/a wbc tntc, nit neg, luek +3; ucx >100k PsA (R cipro/levo, otherwise S), E. fecalis (S Amp, vanco); repeat u/a 03/29 wbc 30-40, nit eng, leuk +3; ucx yeast so far -03/06 Bcx 4/ P.mirabiis (R cipro, I Levo; otherwise S), 03/21 MRSE ( contaminant); 03/07 Neg; 03/29 Bcx NTD Probable Pneum : -03/31 CXR: Pulmonary edema. Marginal improvement since the last occasion -03/29 CXR: . Persistent prominent interstitial markings, suggesting pulmonary vascular congestion, interstitial edema, or interstitial pneumonitis, not significantly changed. Subsegmental atelectasis versus infiltrates in bilateral lung bases. Possible small pleural effusions. -CXR: Subtle patchy opacities in the right upper lung raising question for developing pneumonia. Clinical correlation/follow-up recommended. -influenza sc neg -sp cx MRSA, C. albicans (Colonizer); 03/29 sp cx MRSA, PSA (R Cefepime, Ceftazidie, Zosyn; S Cipro/levo, Genta, Imi)(prob colonizers) 03/19/17 - CT C/A/P - Bilateral basilar pneumonia versus atelectasis. Small to moderate left pleural effusion and a small right pleural effusion noted. 03/19/18 UCx - Yeast 03/23/18 CXR - B/L consolidation R>L 03/22/09 SpCx - MRSA, P.a. and NF Low grade fever, SP Leukocytosis -recurrent, improving -03/29 CDiff neg Pleural effusion SP Thoraco : no evidence of empyema FTT HTN Afib dysphagia HLD Dementia contractures Plan: -D/c IV Vanco d# -Continue Meropenem #/-10 to cover PsA given fever and leukocytosis -Add micafungin to cover for fungemia empirically -04/01 SP flagyl #12 -03/31 SP Cefepime #27 -03/13 SP IV Vancomycin # -03/06 SP Meropenem x1 -Bcx x2 -remove L IJ (placed on 03/23) -Monitor CBC/CMP, temperatures -aspiration precautions -Consider addressing GOC ( ie DNR, comfort care) Subjective Allergies: Coded Allergies: No Known Allergies (Unverified , 03/06/18) Subjective Tm 100.3 wbc increased to 14 Objective Vital Signs Last 24 Hour Vital Signs Date Time Temp Pulse Resp B/P (MAP) Pulse Ox O2 Delivery O2 Flow Rate FiO2 04/07/18 08:48 93 04/07/18 08:00 98.4 93 28 104/52 (69) 95 93 04/07/18 08:00 Venturi Mask 15.0 Venturi Mask 15.0 04/07/18 07:23 95 24 99 Venturi Mask 10.0 45 04/07/18 07:15 Bi-pap 40 04/07/18 07:14 96 27 100 Bi-pap 40 04/07/18 07:14 99 Bi-pap 40 04/07/18 07:13 96 32 100 Full Face 40 04/07/18 04:56 97 20 99 Full Face 40 04/07/18 04:00 98.8 92 22 111/63 (79) 100 92 04/07/18 04:00 Venturi Mask 15.0 Bi-pap 04/07/18 03:20 91 04/07/18 02:57 99 20 98 Full Face 40 04/07/18 01:37 96 21 100 Bi-pap 40 04/07/18 01:28 95 19 99 Bi-pap 40 04/07/18 00:48 106 21 99 Full Face 40 04/07/18 00:00 99.4 101 24 111/63 (79) 99 101 04/07/18 00:00 Venturi Mask 15.0 Bi-pap 04/06/18 23:16 101 04/06/18 23:14 103 24 98 Full Face 40 04/06/18 21:41 99.1 04/06/18 20:00 Venturi Mask 15.0 Venturi Mask 15.0 04/06/18 20:00 100.0 106 24 129/62 (84) 97 04/06/18 19:40 108 24 99 Venturi Mask 10.0 45 04/06/18 19:33 Venturi Mask 10.0 45 04/06/18 19:32 98 Venturi Mask 10.0 45 04/06/18 19:31 110 25 96 Venturi Mask 10.0 45 04/06/18 19:23 114 04/06/18 17:00 99.0 04/06/18 16:00 Venturi Mask 15.0 Venturi Mask 15.0 04/06/18 16:00 100.3 111 26 116/62 (80) 94 04/06/18 15:54 104 04/06/18 13:01 104 24 97 Venturi Mask 10.0 45 04/06/18 12:58 102 26 98 Venturi Mask 10.0 45 04/06/18 12:00 99.5 106 28 118/60 (79) 97 04/06/18 12:00 Venturi Mask 10.0 Venturi Mask 10.0 04/06/18 11:49 101 Height (Feet): 5 Height (Inches): 3.00 Weight (Pounds): 156 Objective General Appearance: no apparent distress, alert, GCS 15, non-toxic, other - frail, elderly, chronically ill, contracted, non-verbal, Chronically Ill HEENT: normocephalic, atraumatic, bilateral eye normal inspection, bilateral eye PERRL Respiratory: chest non-tender, lungs clear, normal breath sounds, no respiratory distress, no retraction, no accessory muscle use, speaking full sentences Cardiovascular : no edema, tachycardia, systolic murmur, irregularly irregular Gastrointestinal: normal bowel sounds, non tender, soft, non-distended, no guarding, no rebound, other - colostomy bag in place. Musculoskeletal: back normal, gait/station normal, normal range of motion, non- tender Neurologic: alert, other - non-focal. Contracted, non-verbal Skin: no rash, warm/dry, well hydrated, other - Multiple DU Microbiology Date/Time Source Procedure Growth Status 04/04/18 14:10 Ascities Fluid Gram Stain - Final Resulted 04/04/18 14:10 Ascities Fluid Body Fluid Culture - Preliminary NO GROWTH AFTER 24 HOURS Resulted Laboratory Tests Test 04/07/18 03:30 White Blood Count 14.1 K/UL (4.8-10.8) H Red Blood Count 2.67 M/UL (4.20-5.40) L Hemoglobin 8.2 G/DL (12.0-16.0) L Hematocrit 25.5 % (37.0-47.0) L Mean Corpuscular Volume 96 FL (80-99) Mean Corpuscular Hemoglobin 30.9 PG (27.0-31.0) Mean Corpuscular Hemoglobin Concent 32.3 G/DL (32.0-36.0) Red Cell Distribution Width 14.6 % (11.6-14.8) Platelet Count 283 K/UL (150-450) Mean Platelet Volume 4.8 FL (6.5-10.1) L Neutrophils (%) (Auto) 77.3 % (45.0-75.0) H Lymphocytes (%) (Auto) 11.1 % (20.0-45.0) L Monocytes (%) (Auto) 9.3 % (1.0-10.0) Eosinophils (%) (Auto) 1.4 % (0.0-3.0) Basophils (%) (Auto) 1.0 % (0.0-2.0) Sodium Level 139 MMOL/L (136-145) Potassium Level 3.9 MMOL/L (3.5-5.1) Chloride Level 104 MMOL/L (98-107) Carbon Dioxide Level 34 MMOL/L (21-32) H Anion Gap 1 mmol/L (5-15) L Blood Urea Nitrogen 13 mg/dL (7-18) Creatinine 0.4 MG/DL (0.55-1.30) L Estimat Glomerular Filtration Rate mL/min (>60) Glucose Level 110 MG/DL (74-106) H Calcium Level 7.8 MG/DL (8.5-10.1) L Current Medications Medications (Trade) Dose Ordered Sig/Cele Route PRN Reason Start Time Stop Time Status Last Admin Dose Admin Acetaminophen (Tylenol) 650 mg Q4H PRN PEG fever (temp>100.5F) 04/03/18 11:00 04/17/18 10:59 04/06/18 21:11 Acetylcysteine (Mucomyst) 200 mg Q6HRT HHN 04/03/18 13:00 05/03/18 12:59 04/07/18 07:13 Amiodarone HCl (Cordarone) 200 mg DAILY GT 04/07/18 09:00 05/04/18 08:59 04/07/18 08:56 Chlorhexidine Gluconate (Sahra-Hex 2%) 1 applic DAILY@1999 TOPIC 04/03/18 20:00 04/13/18 19:59 04/06/18 21:10 Digoxin (Lanoxin) 0.125 mg DAILY GT 04/07/18 09:00 05/07/18 08:59 04/07/18 08:48 Ipratropium [place] (Atrovent) 500 mcg Q4H PRN HHN Shortness of Breath 04/06/18 11:00 04/11/18 10:59 04/07/18 07:12 Meropenem 1 gm/ Sodium Chloride 55 ml @ 110 mls/hr Q12H IVPB 04/03/18 17:00 04/08/18 16:59 04/07/18 05:23 Metoclopramide HCl (Reglan) 10 mg EVERY 8 HOURS GT 04/03/18 14:00 05/02/18 13:59 04/07/18 05:23 Olanzapine (ZyPREXA) 2.5 mg Q6H PRN GT agitation 04/03/18 11:00 04/07/18 10:59 Pantoprazole (Protonix) 40 mg EVERY 12 HOURS IVP 04/03/18 21:00 04/26/18 20:59 04/07/18 08:47 Polyethylene Glycol (Miralax) 17 gm DAILYPRN PRN GT Constipation 04/03/18 11:00 04/22/18 10:59 Vancomycin HCl (Vanco rx to dose) 1 ea DAILY PRN MISC Per rx protocol 04/03/18 11:00 05/03/18 10:59 Vancomycin HCl 500 mg/Dextrose 110 ml @ 110 mls/hr Q12HR@0800,1999 IVPB 04/03/18 20:00 04/07/18 23:59 04/07/18 08:47 Sussy Daniel M.D. Apr 07, 2018 10:33
--- NOTE | 2018-04-07 11:10 | Pulmonology Progress Note ---
Assessment/Plan Problems: (1) Pneumonia (2) Sepsis (3) Atrial fibrillation with RVR (4) Sacral decubitus ulcer, stage IV (5) At high risk for aspiration (6) Protein-calorie malnutrition, severe Assessment/Plan iv abx iv fluids titrate fio2 to sat of 92% check electrolytes all reviewed dvt prophylaxis thoracentesis done, 200 cc removed Subjective ROS Limited/Unobtainable: No Constitutional: Reports: no symptoms HEENT: Repors: no symptoms Allergies: Coded Allergies: No Known Allergies (Unverified , 03/06/18) Objective Last 24 Hour Vital Signs Date Time Temp Pulse Resp B/P (MAP) Pulse Ox O2 Delivery O2 Flow Rate FiO2 04/07/18 08:48 93 04/07/18 08:00 98.4 93 28 104/52 (69) 95 93 04/07/18 08:00 Venturi Mask 15.0 Venturi Mask 15.0 04/07/18 07:23 95 24 99 Venturi Mask 10.0 45 04/07/18 07:15 Bi-pap 40 04/07/18 07:14 96 27 100 Bi-pap 40 04/07/18 07:14 99 Bi-pap 40 04/07/18 07:13 96 32 100 Full Face 40 04/07/18 04:56 97 20 99 Full Face 40 04/07/18 04:00 98.8 92 22 111/63 (79) 100 92 04/07/18 04:00 Venturi Mask 15.0 Bi-pap 04/07/18 03:20 91 04/07/18 02:57 99 20 98 Full Face 40 04/07/18 01:37 96 21 100 Bi-pap 40 04/07/18 01:28 95 19 99 Bi-pap 40 04/07/18 00:48 106 21 99 Full Face 40 04/07/18 00:00 99.4 101 24 111/63 (79) 99 101 04/07/18 00:00 Venturi Mask 15.0 Bi-pap 04/06/18 23:16 101 04/06/18 23:14 103 24 98 Full Face 40 04/06/18 21:41 99.1 04/06/18 20:00 Venturi Mask 15.0 Venturi Mask 15.0 04/06/18 20:00 100.0 106 24 129/62 (84) 97 04/06/18 19:40 108 24 99 Venturi Mask 10.0 45 04/06/18 19:33 Venturi Mask 10.0 45 04/06/18 19:32 98 Venturi Mask 10.0 45 04/06/18 19:31 110 25 96 Venturi Mask 10.0 45 04/06/18 19:23 114 04/06/18 17:00 99.0 04/06/18 16:00 Venturi Mask 15.0 Venturi Mask 15.0 04/06/18 16:00 100.3 111 26 116/62 (80) 94 04/06/18 15:54 104 04/06/18 13:01 104 24 97 Venturi Mask 10.0 45 04/06/18 12:58 102 26 98 Venturi Mask 10.0 45 04/06/18 12:00 99.5 106 28 118/60 (79) 97 04/06/18 12:00 Venturi Mask 10.0 Venturi Mask 10.0 04/06/18 11:49 101 Intake and Output 04/06/18 04/07/18 19:00 07:00 Intake Total 805 ml 720 ml Output Total 580 ml 600 ml Balance 225 ml 120 ml Intake Free Water 130 ml 110 ml IV Total 165 ml 165 ml Tube Feeding 510 ml 445 ml Output Urine Total 550 ml 400 ml Stool Total 30 ml 200 ml # Bowel Movements 30 Objective General Appearance: WD/WN HEENT: normocephalic, atraumatic Respiratory/Chest: chest wall non-tender, lungs clear Cardiovascular: normal peripheral pulses Abdomen: normal bowel sounds, G Tube in place Genitourinary: normal external genitalia Skin: no rash Microbiology Date/Time Source Procedure Growth Status 04/04/18 14:10 Ascities Fluid Gram Stain - Final Resulted 04/04/18 14:10 Ascities Fluid Body Fluid Culture - Preliminary NO GROWTH AFTER 24 HOURS Resulted Laboratory Tests 04/07/18 03:30: White Blood Count 14.1H, Red Blood Count 2.67L, Hemoglobin 8.2L, Hematocrit 25.5L, Mean Corpuscular Volume 96, Mean Corpuscular Hemoglobin 30.9, Mean Corpuscular Hemoglobin Concent 32.3, Red Cell Distribution Width 14.6, Platelet Count 283, Mean Platelet Volume 4.8L, Neutrophils (%) (Auto) 77.3H, Lymphocytes (%) (Auto) 11.1L, Monocytes (%) (Auto) 9.3, Eosinophils (%) (Auto) 1.4, Basophils (%) (Auto) 1.0, Sodium Level 139, Potassium Level 3.9, Chloride Level 104, Carbon Dioxide Level 34H, Anion Gap 1L, Blood Urea Nitrogen 13, Creatinine 0.4L, Estimat Glomerular Filtration Rate , Glucose Level 110H, Calcium Level 7.8L Current Medications Medications (Trade) Dose Ordered Sig/Cele Route PRN Reason Start Time Stop Time Status Last Admin Dose Admin Acetaminophen (Tylenol) 650 mg Q4H PRN PEG fever (temp>100.5F) 04/03/18 11:00 04/17/18 10:59 04/06/18 21:11 Acetylcysteine (Mucomyst) 200 mg Q6HRT HHN 04/03/18 13:00 05/03/18 12:59 04/07/18 07:13 Amiodarone HCl (Cordarone) 200 mg DAILY GT 04/07/18 09:00 05/04/18 08:59 04/07/18 08:56 Chlorhexidine Gluconate (Sahra-Hex 2%) 1 applic DAILY@2000 TOPIC 04/03/18 20:00 04/13/18 19:59 04/06/18 21:10 Digoxin (Lanoxin) 0.125 mg DAILY GT 04/07/18 09:00 05/07/18 08:59 04/07/18 08:48 Ipratropium [place] (Atrovent) 500 mcg Q4H PRN HHN Shortness of Breath 04/06/18 11:00 04/11/18 10:59 04/07/18 07:12 Meropenem 1 gm/ Sodium Chloride 55 ml @ 110 mls/hr Q12H IVPB 04/03/18 17:00 04/12/18 16:59 04/07/18 05:23 Metoclopramide HCl (Reglan) 10 mg EVERY 8 HOURS GT 04/03/18 14:00 05/02/18 13:59 04/07/18 05:23 Micafungin Sodium 100 mg/Sodium Chloride 110 ml @ 110 mls/hr Q24H IVPB 04/07/18 12:00 04/14/18 11:59 Pantoprazole (Protonix) 40 mg EVERY 12 HOURS IVP 04/03/18 21:00 04/26/18 20:59 04/07/18 08:47 Polyethylene Glycol (Miralax) 17 gm DAILYPRN PRN GT Constipation 04/03/18 11:00 04/22/18 10:59 Rishi Gutierrez MD Apr 07, 2018 11:10
[2018-04-07 12:00] VITALS: BP 114/62
[2018-04-07] MEDS ORDERED: Micafungin 100 MG in NS 110 ML IVPB SCH (12:00)
--- NOTE | 2018-04-07 14:11 | Diagnostic Imaging Report ---
Indication: Shortness of breath Technique: XRAY Chest 1v Comparison: 04/04/2018 Findings: Worsening of aeration with increasing haziness of the left lung which is near completely opacified; some aerated lung is noted in the medial left upper lobe lung. There is no appreciable shift of mediastinal structures. There is interstitial opacification/edema noted in the right lung. No pneumothorax. Left transjugular central venous line is noted. Osseous structures are stable. Gastrostomy tube partially visualized. IMPRESSION: Worsening of aeration with increasing obscuration of the left hemithorax likely related to increasing left-sided pleural effusion. Superimposed pneumonia not excludable.
--- NOTE | 2018-04-07 14:34 | Cardiac Electrophysiology PN ---
Assessment/Plan Status Narrative Technically difficult study due to patient was contracted. Study quality precludes accurate assessment of regional wall motion. Normal left ventricular chamber size, systolic function and wall motion. Left ventricular ejection fraction estimated to be 60-65 %. Mild left ventricular hypertrophy. Small circumferential pericardial effusion. Mild left atrial enlargement. Right cardiac chamber sizes are within normal limits. Aortic valve calcification with decreased cusp excursion c/w aortic stenosis. Mildly thickened mitral valve leaflets with normal excursion. Moderate mitral annulus and aortic root calcification. Normal pulmonic valve structure. Normal tricuspid valve structure. Subcostal views not obtainable due to G tube. Assessment/Plan 1. Paroxysmal atrial fibrillation with rapid ventricular response. Off Cardizem drip Echo EF 65%. On Digoxin 0.125 GT daily and Amio 200 GT Converted to SR 2. Urosepsis. On IV antibiotic per ID. 3. Hypotension, off levophed and on IV fluid. 4. Sacral decubitus ulcer. 5. Dementia. 6. Dysphagia. S/P G-tube placement 03/21/17 7. Pleural effusion.S/P 200 cc L Thoracentesis DW RN Subjective Subjective In SR with episode of Wenckebach. S/P 200cc Left lung thoracentesis 04/04/18. On face Mask, nonverbal. Objective Last 24 Hour Vital Signs Date Time Temp Pulse Resp B/P (MAP) Pulse Ox O2 Delivery O2 Flow Rate FiO2 04/07/18 12:24 92 22 99 Venturi Mask 10.0 45 04/07/18 12:16 90 20 96 Venturi Mask 10.0 45 04/07/18 12:00 Venturi Mask 15.0 Venturi Mask 15.0 04/07/18 12:00 97.5 96 26 114/62 (79) 96 96 04/07/18 11:39 96 04/07/18 08:48 93 04/07/18 08:18 106 04/07/18 08:00 98.4 93 28 104/52 (69) 95 93 04/07/18 08:00 Venturi Mask 15.0 Venturi Mask 15.0 04/07/18 07:23 95 24 99 Venturi Mask 10.0 45 04/07/18 07:15 Bi-pap 40 04/07/18 07:14 96 27 100 Bi-pap 40 04/07/18 07:14 99 Bi-pap 40 04/07/18 07:13 96 32 100 Full Face 40 04/07/18 04:56 97 20 99 Full Face 40 04/07/18 04:00 98.8 92 22 111/63 (79) 100 92 04/07/18 04:00 Venturi Mask 15.0 Bi-pap 04/07/18 03:20 91 04/07/18 02:57 99 20 98 Full Face 40 04/07/18 01:37 96 21 100 Bi-pap 40 04/07/18 01:28 95 19 99 Bi-pap 40 04/07/18 00:48 106 21 99 Full Face 40 04/07/18 00:00 99.4 101 24 111/63 (79) 99 101 04/07/18 00:00 Venturi Mask 15.0 Bi-pap 04/06/18 23:16 101 04/06/18 23:14 103 24 98 Full Face 40 04/06/18 21:41 99.1 04/06/18 20:00 Venturi Mask 15.0 Venturi Mask 15.0 04/06/18 20:00 100.0 106 24 129/62 (84) 97 04/06/18 19:40 108 24 99 Venturi Mask 10.0 45 04/06/18 19:33 Venturi Mask 10.0 45 04/06/18 19:32 98 Venturi Mask 10.0 45 04/06/18 19:31 110 25 96 Venturi Mask 10.0 45 04/06/18 19:23 114 04/06/18 17:00 99.0 04/06/18 16:00 Venturi Mask 15.0 Venturi Mask 15.0 04/06/18 16:00 100.3 111 26 116/62 (80) 94 04/06/18 15:54 104 Intake and Output 04/06/18 04/07/18 19:00 07:00 Intake Total 805 ml 720 ml Output Total 580 ml 600 ml Balance 225 ml 120 ml Intake Free Water 130 ml 110 ml IV Total 165 ml 165 ml Tube Feeding 510 ml 445 ml Output Urine Total 550 ml 400 ml Stool Total 30 ml 200 ml # Bowel Movements 30 Laboratory Tests Test 04/07/18 03:30 White Blood Count 14.1 K/UL (4.8-10.8) H Red Blood Count 2.67 M/UL (4.20-5.40) L Hemoglobin 8.2 G/DL (12.0-16.0) L Hematocrit 25.5 % (37.0-47.0) L Mean Corpuscular Volume 96 FL (80-99) Mean Corpuscular Hemoglobin 30.9 PG (27.0-31.0) Mean Corpuscular Hemoglobin Concent 32.3 G/DL (32.0-36.0) Red Cell Distribution Width 14.6 % (11.6-14.8) Platelet Count 283 K/UL (150-450) Mean Platelet Volume 4.8 FL (6.5-10.1) L Neutrophils (%) (Auto) 77.3 % (45.0-75.0) H Lymphocytes (%) (Auto) 11.1 % (20.0-45.0) L Monocytes (%) (Auto) 9.3 % (1.0-10.0) Eosinophils (%) (Auto) 1.4 % (0.0-3.0) Basophils (%) (Auto) 1.0 % (0.0-2.0) Sodium Level 139 MMOL/L (136-145) Potassium Level 3.9 MMOL/L (3.5-5.1) Chloride Level 104 MMOL/L (98-107) Carbon Dioxide Level 34 MMOL/L (21-32) H Anion Gap 1 mmol/L (5-15) L Blood Urea Nitrogen 13 mg/dL (7-18) Creatinine 0.4 MG/DL (0.55-1.30) L Estimat Glomerular Filtration Rate mL/min (>60) Glucose Level 110 MG/DL (74-106) H Calcium Level 7.8 MG/DL (8.5-10.1) L Objective HEAD AND NECK: No JVD.Venturi Mask on. LUNGS: Coarse rhonchi CARDIOVASCULAR: Regular S1 and S2 with no gallop. ABDOMEN: Status post colostomy. GT in place EXTREMITIES: No pitting edema Fredrick Burk MD Apr 07, 2018 14:33
--- NOTE | 2018-04-07 15:12 | Internal Med Progress Note ---
Subjective Date of Service: Apr 07, 2018 Physician Name Shankar Betts Attending Physician Davian Scott MD Current Medications Medications (Trade) Dose Ordered Sig/Cele Route PRN Reason Start Time Stop Time Status Last Admin Dose Admin Acetaminophen (Tylenol) 650 mg Q4H PRN PEG fever (temp>100.5F) 04/03/18 11:00 04/17/18 10:59 04/06/18 21:11 Acetylcysteine (Mucomyst) 200 mg Q6HRT HHN 04/03/18 13:00 05/03/18 12:59 04/07/18 12:15 Amiodarone HCl (Cordarone) 200 mg DAILY GT 04/07/18 09:00 05/04/18 08:59 04/07/18 08:56 Chlorhexidine Gluconate (Sahra-Hex 2%) 1 applic DAILY@2000 TOPIC 04/03/18 20:00 04/13/18 19:59 04/06/18 21:10 Digoxin (Lanoxin) 0.125 mg DAILY GT 04/07/18 09:00 05/07/18 08:59 04/07/18 08:48 Ipratropium [place] (Atrovent) 500 mcg Q4H PRN HHN Shortness of Breath 04/06/18 11:00 04/11/18 10:59 04/07/18 12:15 Meropenem 1 gm/ Sodium Chloride 55 ml @ 110 mls/hr Q12H IVPB 04/03/18 17:00 04/12/18 16:59 04/07/18 05:23 Metoclopramide HCl (Reglan) 10 mg EVERY 8 HOURS GT 04/03/18 14:00 05/02/18 13:59 04/07/18 13:31 Micafungin Sodium 100 mg/Sodium Chloride 110 ml @ 110 mls/hr Q24H IVPB 04/07/18 12:00 04/14/18 11:59 04/07/18 11:53 Pantoprazole (Protonix) 40 mg EVERY 12 HOURS IVP 04/03/18 21:00 04/26/18 20:59 04/07/18 08:47 Polyethylene Glycol (Miralax) 17 gm DAILYPRN PRN GT Constipation 04/03/18 11:00 04/22/18 10:59 Allergies: Coded Allergies: No Known Allergies (Unverified , 12/20/18) ROS Limited/Unobtainable: Yes Subjective 87 YO F admitted with hematuria and gen weakness. Now pyelonephritis respiratory distress and sepsis. Cover for Int Med-Dr Scott. CALISTA. On levophed ; Tolerating venturi mask. Afib with RVR Objective Last Vital Signs Date Time Temp Pulse Resp B/P (MAP) Pulse Ox O2 Delivery O2 Flow Rate FiO2 04/07/18 12:24 92 22 99 Venturi Mask 10.0 45 04/07/18 12:00 97.5 114/62 (79) Laboratory Tests Test 04/07/18 03:30 White Blood Count 14.1 K/UL (4.8-10.8) H Red Blood Count 2.67 M/UL (4.20-5.40) L Hemoglobin 8.2 G/DL (12.0-16.0) L Hematocrit 25.5 % (37.0-47.0) L Mean Corpuscular Volume 96 FL (80-99) Mean Corpuscular Hemoglobin 30.9 PG (27.0-31.0) Mean Corpuscular Hemoglobin Concent 32.3 G/DL (32.0-36.0) Red Cell Distribution Width 14.6 % (11.6-14.8) Platelet Count 283 K/UL (150-450) Mean Platelet Volume 4.8 FL (6.5-10.1) L Neutrophils (%) (Auto) 77.3 % (45.0-75.0) H Lymphocytes (%) (Auto) 11.1 % (20.0-45.0) L Monocytes (%) (Auto) 9.3 % (1.0-10.0) Eosinophils (%) (Auto) 1.4 % (0.0-3.0) Basophils (%) (Auto) 1.0 % (0.0-2.0) Sodium Level 139 MMOL/L (136-145) Potassium Level 3.9 MMOL/L (3.5-5.1) Chloride Level 104 MMOL/L (98-107) Carbon Dioxide Level 34 MMOL/L (21-32) H Anion Gap 1 mmol/L (5-15) L Blood Urea Nitrogen 13 mg/dL (7-18) Creatinine 0.4 MG/DL (0.55-1.30) L Estimat Glomerular Filtration Rate mL/min (>60) Glucose Level 110 MG/DL (74-106) H Calcium Level 7.8 MG/DL (8.5-10.1) L Intake and Output 04/06/18 04/07/18 19:00 07:00 Intake Total 805 ml 720 ml Output Total 580 ml 600 ml Balance 225 ml 120 ml Intake Free Water 130 ml 110 ml IV Total 165 ml 165 ml Tube Feeding 510 ml 445 ml Output Urine Total 550 ml 400 ml Stool Total 30 ml 200 ml # Bowel Movements 30 Objective PHYSICAL EXAMINATION: GENERAL: The patient is a well-developed and well-nourished white female, in no apparent distress. HEENT: Eyes, pupils are equal and responsive to light and accommodation. Extraocular movements are intact. NECK: Supple without lymphadenopathy. CHEST: venturi mask; crackles and rales at bases; Decreased breath sounds at bilateral bases. Otherwise, clear to auscultation without wheezes or rales. CARDIOVASCULAR: Tachycardic. Regular rate and rhythm. S1, S2 are normal without murmurs, rubs, or gallops. ABDOMEN: Soft, nontender, and nondistended. Positive bowel sounds. No evidence of hepatosplenomegaly. Currently, no rebound or guarding noted. EXTREMITIES: Negative for clubbing, cyanosis, or edema. RECTAL/GENITAL: Deferred. NEUROLOGIC: Cranial nerves II through XII are grossly intact without focal deficits. Assessment/Plan Problem List: (1) Pyelonephritis Assessment & Plan: Pseudamonas and strep. See ID note-Continue meropenem and vanco (2) Sepsis (3) HTN (hypertension) Assessment & Plan: Currently hypotensive (4) Hypercholesteremia (5) Sacral decubitus ulcer, stage IV Assessment & Plan: See surgery note-dr Ramsay (6) Urinary tract infection Assessment & Plan: pseudamonas; continue cefepime per ID (7) Pneumonia Assessment & Plan: New RLL. Previously MRSA. Continue vanco and meropenem per ID (8) Atrial fibrillation with RVR Assessment & Plan: Continue digoxin and amiodrone per cardiology (9) Respiratory distress Assessment & Plan: On venturi mask Status: progressing Assessment/Plan prognosis guarded Shankar Betts MD Apr 07, 2018 15:11
[2018-04-07 16:00] VITALS: BP 104/66
[2018-04-07 20:00] VITALS: BP 100/65
[2018-04-08] VITALS (17 sets, daily range): BP systolic 93–129; BP diastolic 42–83
[2018-04-08] MEDS: Acetylcysteine 20% Soln 4ml HHN SCH ×4 (02:03→20:17)
[2018-04-08] MEDS: Ipratropium 0.02% Inh Soln 2.5ml UD HHN PRN ×2 (02:03→08:40)
[2018-04-08] MEDS: Meropenem 1 GM in NS 55 ML IVPB SCH ×2 (04:42→17:51)
[2018-04-08] MEDS: Metoclopramide 10mg/10ml Liq GT SCH ×2 (05:42→22:03)
[2018-04-08 06:13] LABS: BASOPHILS % (AUTO) 0.9 % (0.0-2.0); EOSINOPHILS % (AUTO) 1.8 % (0.0-3.0); HEMATOCRIT 29.2 % (37.0-47.0); HEMOGLOBIN 9.1 G/DL (12.0-16.0); LYMPHOCYTES % (AUTO) 10.8 % (20.0-45.0); MEAN CORPUSCULAR VOLUME 96 FL (80-99); MONOCYTES % (AUTO) 9.4 % (1.0-10.0); NEUTROPHILS % (AUTO) 77.2 % (45.0-75.0); PLATELET COUNT 320 K/UL (150-450); RED BLOOD COUNT 3.03 M/UL (4.20-5.40); RED CELL DISTRIBUTION WIDTH 14.9 % (11.6-14.8); WHITE BLOOD COUNT 12.8 K/UL (4.8-10.8)
[2018-04-08 06:21] LABS: INR 1.1 (0.9-1.1)
[2018-04-08 06:43] LABS: PHOSPHORUS 1.7 MG/DL (2.5-4.9)
[2018-04-08 06:53] LABS: ALANINE AMINOTRANSFERASE 11 U/L (12-78); ALBUMIN 1.3 G/DL (3.4-5.0); ALBUMIN/GLOBULIN RATIO 0.4 (1.0-2.7); ALKALINE PHOSPHATASE 112 U/L (46-116); ANION GAP 1 mmol/L (5-15); ASPARTATE AMINO TRANSFERASE 22 U/L (15-37); BILIRUBIN,TOTAL 0.3 MG/DL (0.2-1.0); BLOOD UREA NITROGEN 13 mg/dL (7-18); CARBON DIOXIDE 34 MMOL/L (21-32); CHLORIDE 104 MMOL/L (98-107); CREATININE 0.5 MG/DL (0.55-1.30); POTASSIUM 4.6 MMOL/L (3.5-5.1); SODIUM 139 MMOL/L (136-145)
[2018-04-08] MEDS: Digoxin 0.125mg tab GT SCH (09:33)
[2018-04-08] MEDS: Pantoprazole Inj IVP SCH ×2 (09:33→20:34)
[2018-04-08] MEDS: Amiodarone 200mg tab GT SCH (09:33)
--- NOTE | 2018-04-08 10:02 | Pulmonolgy Critical Care Note ---
Critical Care - Asmt/Plan Problems: (1) Respiratory distress (2) Pleural effusion (3) Pneumonia (4) Atrial fibrillation with RVR (5) Sacral decubitus ulcer, stage IV (6) Protein-calorie malnutrition, severe (7) At high risk for aspiration Respiratory: monitor respiratory rate, adjust FIO2, CXR Cardiac: continue to monitor HR/BP Renal: F/U I&O, check electrolytes Infectious Disease: check cultures, continue antibiotics Gastrointestinal: hold feedings Endocrine: monitor blood sugar Hematologic: monitor H/H, transfuse if hgb<8.5 Neurologic: PRN Morphine, keep patient comfortable Affect: PRN ativan Prophylaxis: Protonix, Heparin Notes Reviewed: lens blocker, cardio, 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 with: nurses Critical Care - Objective Last 24 Hour Vital Signs Date Time Temp Pulse Resp B/P (MAP) Pulse Ox O2 Delivery O2 Flow Rate FiO2 04/08/18 09:33 88 04/08/18 08:47 96 29 100 Venturi Mask 10.0 45 04/08/18 08:40 100 Bi-pap 45 04/08/18 08:40 Bi-pap 45 04/08/18 08:40 94 30 100 Bi-pap 45 04/08/18 08:00 99.3 97 24 99/69 (79) 100 04/08/18 05:24 85 22 100 Facial 45 04/08/18 04:00 Bi-pap Bi-pap 04/08/18 04:00 97.9 90 24 98/68 (78) 100 90 04/08/18 04:00 92 04/08/18 03:11 97 31 99 Facial 45 04/08/18 02:18 96 18 100 Bi-pap 45 04/08/18 02:03 83 17 100 Bi-pap 45 04/08/18 02:02 83 17 100 Facial 45 04/08/18 00:00 Bi-pap Bi-pap 04/08/18 00:00 40 04/08/18 00:00 97.7 91 24 100/63 (75) 99 91 04/08/18 00:00 89 04/07/18 23:00 94 19 97 Full Face 45 04/07/18 20:00 98.1 98 24 100/65 (77) 100 98 04/07/18 20:00 Venturi Mask 15.0 Venturi Mask 15.0 04/07/18 20:00 99 04/07/18 19:30 100 22 99 Venturi Mask 10.0 45 04/07/18 19:17 Venturi Mask 10.0 40 04/07/18 19:17 101 22 98 Venturi Mask 10.0 45 04/07/18 19:17 98 Venturi Mask 10.0 40 04/07/18 18:00 Venturi Mask 15.0 Venturi Mask 15.0 04/07/18 16:00 Venturi Mask 15.0 Venturi Mask 15.0 04/07/18 16:00 98.2 95 24 104/66 (79) 98 95 04/07/18 15:44 96 04/07/18 12:24 92 22 99 Venturi Mask 10.0 45 04/07/18 12:16 90 20 96 Venturi Mask 10.0 45 04/07/18 12:00 Venturi Mask 15.0 Venturi Mask 15.0 04/07/18 12:00 97.5 96 26 114/62 (79) 96 96 04/07/18 11:39 96 Status: awake Condition: critical HEENT: atraumatic Lungs: chest wall tender, rales, rhonchi Abdomen: soft, non-tender, active bowel sounds, feeding tube Accucheck: 111 Critical Care - Subjective ROS Limited/Unobtainable: Yes Condition: critical EKG Rhythm: Sinus Rhythm FI02: 45 Vent Support Mode: BiLevel Sputum Amount: Moderate Tube Feeding Amount: 45 I&O: Intake and Output 04/07/18 04/08/18 19:00 07:00 Intake Total 875 ml 225 ml Output Total 1150 ml 102 ml Balance -275 ml 123 ml Intake Free Water 60 ml IV Total 275 ml Tube Feeding 540 ml 225 ml Output Urine Total 800 ml 2 ml Stool Total 350 ml 100 ml CXR: no change Labs: Laboratory Tests Test 04/08/18 04:00 White Blood Count 12.8 K/UL (4.8-10.8) H Red Blood Count 3.03 M/UL (4.20-5.40) L Hemoglobin 9.1 G/DL (12.0-16.0) L Hematocrit 29.2 % (37.0-47.0) L Mean Corpuscular Volume 96 FL (80-99) Mean Corpuscular Hemoglobin 30.1 PG (27.0-31.0) Mean Corpuscular Hemoglobin Concent 31.2 G/DL (32.0-36.0) L Red Cell Distribution Width 14.9 % (11.6-14.8) H Platelet Count 320 K/UL (150-450) Mean Platelet Volume 5.0 FL (6.5-10.1) L Neutrophils (%) (Auto) 77.2 % (45.0-75.0) H Lymphocytes (%) (Auto) 10.8 % (20.0-45.0) L Monocytes (%) (Auto) 9.4 % (1.0-10.0) Eosinophils (%) (Auto) 1.8 % (0.0-3.0) Basophils (%) (Auto) 0.9 % (0.0-2.0) Prothrombin Time 11.4 SEC (9.30-11.50) Prothromb Time International Ratio 1.1 (0.9-1.1) Activated Partial Thromboplast Time 29 SEC (23-33) Sodium Level 139 MMOL/L (136-145) Potassium Level 4.6 MMOL/L (3.5-5.1) Chloride Level 104 MMOL/L (98-107) Carbon Dioxide Level 34 MMOL/L (21-32) H Anion Gap 1 mmol/L (5-15) L Blood Urea Nitrogen 13 mg/dL (7-18) Creatinine 0.5 MG/DL (0.55-1.30) L Estimat Glomerular Filtration Rate mL/min (>60) Glucose Level 78 MG/DL (74-106) Calcium Level 8.0 MG/DL (8.5-10.1) L Phosphorus Level 1.7 MG/DL (2.5-4.9) L Magnesium Level 1.7 MG/DL (1.8-2.4) L Total Bilirubin 0.3 MG/DL (0.2-1.0) Aspartate Amino Transf (AST/SGOT) 22 U/L (15-37) Alanine Aminotransferase (ALT/SGPT) 11 U/L (12-78) L Alkaline Phosphatase 112 U/L (46-116) Pro-B-Type Natriuretic Peptide 1757 pg/mL (0-125) H Total Protein 5.0 G/DL (6.4-8.2) L Albumin 1.3 G/DL (3.4-5.0) L Globulin 3.7 g/dL Albumin/Globulin Ratio 0.4 (1.0-2.7) L Rishi Gutierrez MD Apr 08, 2018 10:02
--- NOTE | 2018-04-08 10:28 | Pre-Procedure Note/Attestation ---
Pre-Procedure Note/Attestation Complete Prior to Procedure Planned Procedure: not applicable Procedure Narrative: tracheostomy Indications for Procedure Pre-Operative Diagnosis: respiratory insufficiency; unable to protect airway; excessive secretions Attestation I attest that I discussed the nature of the procedure; its benefits; risks and complications; and alternatives (and the risks and benefits of such alternatives ), prior to the procedure, with the patient (or the patient's legal nutrition representative). I attest that, if there was a reasonable possibility of needing a blood transfusion, the patient (or the patient's legal nutrition representative) was given the [facility] standardized written summary, pursuant to the [employer] Blood Safety Act ([place] Health and Safety Code # 1645, as amended). I attest that I re-evaluated the patient just prior to the surgery and that there has been no change in the patient's H&P, except as documented below: Derick Ramsay Apr 08, 2018 10:28
--- NOTE | 2018-04-08 10:50 | Cardiac Electrophysiology PN ---
Assessment/Plan Status Narrative Technically difficult study due to patient was contracted. Study quality precludes accurate assessment of regional wall motion. Normal left ventricular chamber size, systolic function and wall motion. Left ventricular ejection fraction estimated to be 60-65 %. Mild left ventricular hypertrophy. Small circumferential pericardial effusion. Mild left atrial enlargement. Right cardiac chamber sizes are within normal limits. Aortic valve calcification with decreased cusp excursion c/w aortic stenosis. Mildly thickened mitral valve leaflets with normal excursion. Moderate mitral annulus and aortic root calcification. Normal pulmonic valve structure. Normal tricuspid valve structure. Subcostal views not obtainable due to G tube. Assessment/Plan 1. Paroxysmal atrial fibrillation with rapid ventricular response. Off Cardizem drip Echo EF 65%. On Digoxin 0.125 GT daily and Amio 200 GT Converted to SR 2. Urosepsis. On IV antibiotic per ID. 3. Hypotension, off Levophed and on IV fluid. 4. Sacral decubitus ulcer. 5. Dementia. 6. Dysphagia. S/P G-tube placement 03/21/17 7. Pleural effusion. S/P 200 cc L Thoracentesis 8. Respiratory failure. Tracheostomy pending today. KEIRY RN Subjective Subjective In SR with episode of Wenckebach. S/P 200cc Left lung thoracentesis 04/04/18. On face Mask, nonverbal. Scheduled for tracheostomy by Dr Ramsay Objective Last 24 Hour Vital Signs Date Time Temp Pulse Resp B/P (MAP) Pulse Ox O2 Delivery O2 Flow Rate FiO2 04/08/18 09:33 88 04/08/18 08:47 96 29 100 Venturi Mask 10.0 45 04/08/18 08:40 100 Bi-pap 45 04/08/18 08:40 Bi-pap 45 04/08/18 08:40 94 30 100 Bi-pap 45 04/08/18 08:00 99.3 97 24 99/69 (79) 100 04/08/18 05:24 85 22 100 Facial 45 04/08/18 04:00 Bi-pap Bi-pap 04/08/18 04:00 97.9 90 24 98/68 (78) 100 90 04/08/18 04:00 92 04/08/18 03:11 97 31 99 Facial 45 04/08/18 02:18 96 18 100 Bi-pap 45 04/08/18 02:03 83 17 100 Bi-pap 45 04/08/18 02:02 83 17 100 Facial 45 04/08/18 00:00 Bi-pap Bi-pap 04/08/18 00:00 40 04/08/18 00:00 97.7 91 24 100/63 (75) 99 91 04/08/18 00:00 89 04/07/18 23:00 94 19 97 Full Face 45 04/07/18 20:00 98.1 98 24 100/65 (77) 100 98 04/07/18 20:00 Venturi Mask 15.0 Venturi Mask 15.0 04/07/18 20:00 99 04/07/18 19:30 100 22 99 Venturi Mask 10.0 45 04/07/18 19:17 Venturi Mask 10.0 40 04/07/18 19:17 101 22 98 Venturi Mask 10.0 45 04/07/18 19:17 98 Venturi Mask 10.0 40 04/07/18 18:00 Venturi Mask 15.0 Venturi Mask 15.0 04/07/18 16:00 Venturi Mask 15.0 Venturi Mask 15.0 04/07/18 16:00 98.2 95 24 104/66 (79) 98 95 04/07/18 15:44 96 04/07/18 12:24 92 22 99 Venturi Mask 10.0 45 04/07/18 12:16 90 20 96 Venturi Mask 10.0 45 04/07/18 12:00 Venturi Mask 15.0 Venturi Mask 15.0 04/07/18 12:00 97.5 96 26 114/62 (79) 96 96 04/07/18 11:39 96 Intake and Output 04/07/18 04/08/18 19:00 07:00 Intake Total 875 ml 225 ml Output Total 1150 ml 102 ml Balance -275 ml 123 ml Intake Free Water 60 ml IV Total 275 ml Tube Feeding 540 ml 225 ml Output Urine Total 800 ml 2 ml Stool Total 350 ml 100 ml Laboratory Tests Test 04/08/18 04:00 White Blood Count 12.8 K/UL (4.8-10.8) H Red Blood Count 3.03 M/UL (4.20-5.40) L Hemoglobin 9.1 G/DL (12.0-16.0) L Hematocrit 29.2 % (37.0-47.0) L Mean Corpuscular Volume 96 FL (80-99) Mean Corpuscular Hemoglobin 30.1 PG (27.0-31.0) Mean Corpuscular Hemoglobin Concent 31.2 G/DL (32.0-36.0) L Red Cell Distribution Width 14.9 % (11.6-14.8) H Platelet Count 320 K/UL (150-450) Mean Platelet Volume 5.0 FL (6.5-10.1) L Neutrophils (%) (Auto) 77.2 % (45.0-75.0) H Lymphocytes (%) (Auto) 10.8 % (20.0-45.0) L Monocytes (%) (Auto) 9.4 % (1.0-10.0) Eosinophils (%) (Auto) 1.8 % (0.0-3.0) Basophils (%) (Auto) 0.9 % (0.0-2.0) Prothrombin Time 11.4 SEC (9.30-11.50) Prothromb Time International Ratio 1.1 (0.9-1.1) Activated Partial Thromboplast Time 29 SEC (23-33) Sodium Level 139 MMOL/L (136-145) Potassium Level 4.6 MMOL/L (3.5-5.1) Chloride Level 104 MMOL/L (98-107) Carbon Dioxide Level 34 MMOL/L (21-32) H Anion Gap 1 mmol/L (5-15) L Blood Urea Nitrogen 13 mg/dL (7-18) Creatinine 0.5 MG/DL (0.55-1.30) L Estimat Glomerular Filtration Rate mL/min (>60) Glucose Level 78 MG/DL (74-106) Calcium Level 8.0 MG/DL (8.5-10.1) L Phosphorus Level 1.7 MG/DL (2.5-4.9) L Magnesium Level 1.7 MG/DL (1.8-2.4) L Total Bilirubin 0.3 MG/DL (0.2-1.0) Aspartate Amino Transf (AST/SGOT) 22 U/L (15-37) Alanine Aminotransferase (ALT/SGPT) 11 U/L (12-78) L Alkaline Phosphatase 112 U/L (46-116) Pro-B-Type Natriuretic Peptide 1757 pg/mL (0-125) H Total Protein 5.0 G/DL (6.4-8.2) L Albumin 1.3 G/DL (3.4-5.0) L Globulin 3.7 g/dL Albumin/Globulin Ratio 0.4 (1.0-2.7) L Objective HEAD AND NECK: No JVD.Venturi Mask on. LUNGS: Coarse rhonchi CARDIOVASCULAR: Regular S1 and S2 with no gallop. ABDOMEN: Status post colostomy. GT in place EXTREMITIES: No pitting edema Fredrick Burk MD Apr 08, 2018 10:50
--- NOTE | 2018-04-08 11:19 | Diagnostic Imaging Report ---
Indication: Dyspnea Technique: One view of the chest Comparison: 04/07/2018 Findings: Left-sided pleural effusion appears significantly smaller but still large. Interstitial congestive changes persist bilaterally. Gastrostomy is again noted Impression: Decreased but persistent is a large left-sided pleural effusion Stable interstitial congestion, over one day
--- NOTE | 2018-04-08 11:43 | Infectious Diseases Prog Note ---
Assessment/Plan Assessment/Plan Assessment: Sepsis, recurrent- r.o line infection (bacteremia vs fungemia);i mproving -04/07 Bcx p s/p L IJ removal UTI c/w bacteremia and prob early PNA -u/a wbc tntc, nit neg, luek +3; ucx >100k PsA (R cipro/levo, otherwise S), E. fecalis (S Amp, vanco); repeat u/a 03/29 wbc 30-40, nit eng, leuk +3; ucx yeast so far -03/06 Bcx 4/ P.mirabiis (R cipro, I Levo; otherwise S), 03/21 MRSE ( contaminant); 03/07 Neg; 03/29 Bcx NTD Probable Pneum : -03/31 CXR: Pulmonary edema. Marginal improvement since the last occasion -03/29 CXR: . Persistent prominent interstitial markings, suggesting pulmonary vascular congestion, interstitial edema, or interstitial pneumonitis, not significantly changed. Subsegmental atelectasis versus infiltrates in bilateral lung bases. Possible small pleural effusions. -CXR: Subtle patchy opacities in the right upper lung raising question for developing pneumonia. Clinical correlation/follow-up recommended. -influenza sc neg -sp cx MRSA, C. albicans (Colonizer); 03/29 sp cx MRSA, PSA (R Cefepime, Ceftazidie, Zosyn; S Cipro/levo, Genta, Imi)(prob colonizers) 03/19/17 - CT C/A/P - Bilateral basilar pneumonia versus atelectasis. Small to moderate left pleural effusion and a small right pleural effusion noted. 03/19/18 UCx - Yeast 03/23/18 CXR - B/L consolidation R>L 03/22/09 SpCx - MRSA, P.a. and NF Low grade fever, improving Leukocytosis -recurrent, improving -03/29 CDiff neg Pleural effusion SP Thoraco : no evidence of empyema FTT HTN Afib dysphagia HLD Dementia contractures Plan: -Continue Meropenem #08/22- to cover PsA given fever and leukocytosis -Add micafungin #2 to cover for fungemia empirically -04/07 SP IV Vancomycin # -04/01 SP flagyl # -03/31 SP Cefepime # -03/13 SP IV Vancomycin #7 -03/06 SP Meropenem x1 -f/u Bcx x2 -Monitor CBC/CMP, temperatures -aspiration precautions -Consider addressing GOC ( ie DNR, comfort care) Subjective Allergies: Coded Allergies: No Known Allergies (Unverified , 03/06/18) Subjective afebrile >36hrs wbc improving L IJ line removed yesterday Objective Vital Signs Last 24 Hour Vital Signs Date Time Temp Pulse Resp B/P (MAP) Pulse Ox O2 Delivery O2 Flow Rate FiO2 04/08/18 09:33 88 04/08/18 08:47 96 29 100 Venturi Mask 10.0 45 04/08/18 08:40 100 Bi-pap 45 04/08/18 08:40 Bi-pap 45 04/08/18 08:40 94 30 100 Bi-pap 45 04/08/18 08:00 99.3 97 24 99/69 (79) 100 04/08/18 08:00 93 04/08/18 05:24 85 22 100 Facial 45 04/08/18 04:00 Bi-pap Bi-pap 04/08/18 04:00 97.9 90 24 98/68 (78) 100 90 04/08/18 04:00 92 04/08/18 03:11 97 31 99 Facial 45 04/08/18 02:18 96 18 100 Bi-pap 45 04/08/18 02:03 83 17 100 Bi-pap 45 04/08/18 02:02 83 17 100 Facial 45 04/08/18 00:00 Bi-pap Bi-pap 04/08/18 00:00 40 04/08/18 00:00 97.7 91 24 100/63 (75) 99 91 04/08/18 00:00 89 04/07/18 23:00 94 19 97 Full Face 45 04/07/18 20:00 98.1 98 24 100/65 (77) 100 98 04/07/18 20:00 Venturi Mask 15.0 Venturi Mask 15.0 04/07/18 20:00 99 04/07/18 19:30 100 22 99 Venturi Mask 10.0 45 04/07/18 19:17 Venturi Mask 10.0 40 04/07/18 19:17 101 22 98 Venturi Mask 10.0 45 04/07/18 19:17 98 Venturi Mask 10.0 40 04/07/18 18:00 Venturi Mask 15.0 Venturi Mask 15.0 04/07/18 16:00 Venturi Mask 15.0 Venturi Mask 15.0 04/07/18 16:00 98.2 95 24 104/66 (79) 98 95 04/07/18 15:44 96 04/07/18 12:24 92 22 99 Venturi Mask 10.0 45 04/07/18 12:16 90 20 96 Venturi Mask 10.0 45 04/07/18 12:00 Venturi Mask 15.0 Venturi Mask 15.0 04/07/18 12:00 97.5 96 26 114/62 (79) 96 96 Height (Feet): 5 Height (Inches): 3.00 Weight (Pounds): 156 Objective General Appearance: no apparent distress, alert, GCS 15, non-toxic, other - frail, elderly, chronically ill, contracted, non-verbal, Chronically Ill HEENT: normocephalic, atraumatic, bilateral eye normal inspection, bilateral eye PERRL Respiratory: chest non-tender, lungs clear, normal breath sounds, no respiratory distress, no retraction, no accessory muscle use, speaking full sentences Cardiovascular : no edema, tachycardia, systolic murmur, irregularly irregular Gastrointestinal: normal bowel sounds, non tender, soft, non-distended, no guarding, no rebound, other - colostomy bag in place. Musculoskeletal: back normal, gait/station normal, normal range of motion, non- tender Neurologic: alert, other - non-focal. Contracted, non-verbal Skin: no rash, warm/dry, well hydrated, other - Multiple DU Laboratory Tests Test 04/08/18 04:00 White Blood Count 12.8 K/UL (4.8-10.8) H Red Blood Count 3.03 M/UL (4.20-5.40) L Hemoglobin 9.1 G/DL (12.0-16.0) L Hematocrit 29.2 % (37.0-47.0) L Mean Corpuscular Volume 96 FL (80-99) Mean Corpuscular Hemoglobin 30.1 PG (27.0-31.0) Mean Corpuscular Hemoglobin Concent 31.2 G/DL (32.0-36.0) L Red Cell Distribution Width 14.9 % (11.6-14.8) H Platelet Count 320 K/UL (150-450) Mean Platelet Volume 5.0 FL (6.5-10.1) L Neutrophils (%) (Auto) 77.2 % (45.0-75.0) H Lymphocytes (%) (Auto) 10.8 % (20.0-45.0) L Monocytes (%) (Auto) 9.4 % (1.0-10.0) Eosinophils (%) (Auto) 1.8 % (0.0-3.0) Basophils (%) (Auto) 0.9 % (0.0-2.0) Prothrombin Time 11.4 SEC (9.30-11.50) Prothromb Time International Ratio 1.1 (0.9-1.1) Activated Partial Thromboplast Time 29 SEC (23-33) Sodium Level 139 MMOL/L (136-145) Potassium Level 4.6 MMOL/L (3.5-5.1) Chloride Level 104 MMOL/L (98-107) Carbon Dioxide Level 34 MMOL/L (21-32) H Anion Gap 1 mmol/L (5-15) L Blood Urea Nitrogen 13 mg/dL (7-18) Creatinine 0.5 MG/DL (0.55-1.30) L Estimat Glomerular Filtration Rate mL/min (>60) Glucose Level 78 MG/DL (74-106) Calcium Level 8.0 MG/DL (8.5-10.1) L Phosphorus Level 1.7 MG/DL (2.5-4.9) L Magnesium Level 1.7 MG/DL (1.8-2.4) L Total Bilirubin 0.3 MG/DL (0.2-1.0) Aspartate Amino Transf (AST/SGOT) 22 U/L (15-37) Alanine Aminotransferase (ALT/SGPT) 11 U/L (12-78) L Alkaline Phosphatase 112 U/L (46-116) Pro-B-Type Natriuretic Peptide 1757 pg/mL (0-125) H Total Protein 5.0 G/DL (6.4-8.2) L Albumin 1.3 G/DL (3.4-5.0) L Globulin 3.7 g/dL Albumin/Globulin Ratio 0.4 (1.0-2.7) L Current Medications Medications (Trade) Dose Ordered Sig/Cele Route PRN Reason Start Time Stop Time Status Last Admin Dose Admin Acetaminophen (Tylenol) 650 mg Q4H PRN PEG fever (temp>100.5F) 04/03/18 11:00 04/17/18 10:59 04/06/18 21:11 Acetylcysteine (Mucomyst) 200 mg Q6HRT HHN 04/03/18 13:00 05/03/18 12:59 04/08/18 08:40 Amiodarone HCl (Cordarone) 200 mg DAILY GT 04/07/18 09:00 05/04/18 08:59 04/08/18 09:33 Digoxin (Lanoxin) 0.125 mg DAILY GT 04/07/18 09:00 05/07/18 08:59 04/08/18 09:33 Ipratropium [place] (Atrovent) 500 mcg Q4H PRN HHN Shortness of Breath 04/06/18 11:00 04/11/18 10:59 04/08/18 08:40 Meropenem 1 gm/ Sodium Chloride 55 ml @ 110 mls/hr Q12H IVPB 04/03/18 17:00 04/12/18 16:59 04/08/18 04:42 Metoclopramide HCl (Reglan) 10 mg EVERY 8 HOURS GT 04/03/18 14:00 05/02/18 13:59 04/08/18 05:42 Micafungin Sodium 100 mg/Sodium Chloride 110 ml @ 110 mls/hr Q24H IVPB 04/07/18 12:00 04/14/18 11:59 04/07/18 11:53 Pantoprazole (Protonix) 40 mg EVERY 12 HOURS IVP 04/03/18 21:00 04/26/18 20:59 04/08/18 09:33 Polyethylene Glycol (Miralax) 17 gm DAILYPRN PRN GT Constipation 04/03/18 11:00 04/22/18 10:59 Sussy Daniel M.D. Apr 08, 2018 11:43
[2018-04-08] MEDS ORDERED: Zemuron 50mg/5ml Inj IV ONE (11:58)
[2018-04-08] MEDS ORDERED: Lidocaine 1% 10mg/ml/Epi 0.005mg/ml 30ml vial INJ ONE (12:18)
--- NOTE | 2018-04-08 12:35 | Anethesia Preoperative Eval ---
Anesthesia Pre-op PMH/ROS General Date of Evaluation: Apr 08, 2018 Time of Evaluation: 13:02 Anesthesiologist: Lisseth ASA Score: ASA 4 Mallampati Score Class I : Soft palate, uvula, fauces, pillars visible Class II: Soft palate, uvula, fauces visible Class III: Soft palate, base of uvula visible Class IV: Only hard plate visible Mallampati Classification: Class III Surgeon: Devendra Diagnosis: Ventilatory Insufficencey Surgical Procedure: Tracheostomy Anesthesia History: none Family History: no anesthesia problems Allergies: Coded Allergies: No Known Allergies (Unverified , 03/06/18) Medications: see eMAR Patient NPO?: Yes NPO Date: Apr 08, 2018 NPO Time: 0000 Past Medical History Cardiovascular: Reports: HTN Pulmonary: Reports: other - BIPAP Gastrointestinal/Genitourinary: Reports: other - Pyelonephritis Neurologic/Psychiatric: Reports: dementia Hematology/Immune: Reports: anemia, other - Sepsis Anesthesia Pre-op Phys. Exam Physician Exam Last Vital Signs Date Time Temp Pulse Resp B/P (MAP) Pulse Ox O2 Delivery O2 Flow Rate FiO2 04/08/18 12:00 97.5 90 14 116/83 (94) 100 04/08/18 08:47 Venturi Mask 10.0 45 Constitutional: NAD Neurologic: CN 2-12 intact Cardiovascular: RRR Respiratory: CTA Gastrointestinal: S/NT/ND Airway Exam Mallampati Score: Class III MO: limited ROM: limited Teeth: missing, intact Anesthesia Pre-op A/P Labs Hematology Test 04/08/18 04:00 White Blood Count 12.8 K/UL (4.8-10.8) H Red Blood Count 3.03 M/UL (4.20-5.40) L Hemoglobin 9.1 G/DL (12.0-16.0) L Hematocrit 29.2 % (37.0-47.0) L Mean Corpuscular Volume 96 FL (80-99) Mean Corpuscular Hemoglobin 30.1 PG (27.0-31.0) Mean Corpuscular Hemoglobin Concent 31.2 G/DL (32.0-36.0) L Red Cell Distribution Width 14.9 % (11.6-14.8) H Platelet Count 320 K/UL (150-450) Mean Platelet Volume 5.0 FL (6.5-10.1) L Neutrophils (%) (Auto) 77.2 % (45.0-75.0) H Lymphocytes (%) (Auto) 10.8 % (20.0-45.0) L Monocytes (%) (Auto) 9.4 % (1.0-10.0) Eosinophils (%) (Auto) 1.8 % (0.0-3.0) Basophils (%) (Auto) 0.9 % (0.0-2.0) Coagulation Test 04/08/18 04:00 Prothrombin Time 11.4 SEC (9.30-11.50) Prothromb Time International Ratio 1.1 (0.9-1.1) Activated Partial Thromboplast Time 29 SEC (23-33) Chemistry Test 04/08/18 04:00 Sodium Level 139 MMOL/L (136-145) Potassium Level 4.6 MMOL/L (3.5-5.1) Chloride Level 104 MMOL/L (98-107) Carbon Dioxide Level 34 MMOL/L (21-32) H Anion Gap 1 mmol/L (5-15) L Blood Urea Nitrogen 13 mg/dL (7-18) Creatinine 0.5 MG/DL (0.55-1.30) L Estimat Glomerular Filtration Rate mL/min (>60) Glucose Level 78 MG/DL (74-106) Calcium Level 8.0 MG/DL (8.5-10.1) L Phosphorus Level 1.7 MG/DL (2.5-4.9) L Magnesium Level 1.7 MG/DL (1.8-2.4) L Total Bilirubin 0.3 MG/DL (0.2-1.0) Aspartate Amino Transf (AST/SGOT) 22 U/L (15-37) Alanine Aminotransferase (ALT/SGPT) 11 U/L (12-78) L Alkaline Phosphatase 112 U/L (46-116) Pro-B-Type Natriuretic Peptide 1757 pg/mL (0-125) H Total Protein 5.0 G/DL (6.4-8.2) L Albumin 1.3 G/DL (3.4-5.0) L Globulin 3.7 g/dL Albumin/Globulin Ratio 0.4 (1.0-2.7) L Risk Assessment & Plan Status Change Before Surgery: No Pre-Antibiotics Dru Gram Ancef IV Given Within 1 Hr of Incision: Yes Time Given: 13:03 Elmer Montanez MD Apr 08, 2018 12:35
[2018-04-08] MEDS ORDERED: NS Irrig 1000ml ONE (13:00)
[2018-04-08] MEDS ORDERED: Propofol 200mg/20ml IV ONE (13:00)
[2018-04-08] MEDS ORDERED: Sterile Water Irrig 1000ml IRRIG ONE (13:00)
--- NOTE | 2018-04-08 13:19 | Immediate Post-Op Evaluation ---
Immediate Post-Op Evalulation Immediate Post-Op Evalulation Procedure: EGD, PEG placement Date of Evaluation: Apr 08, 2018 Time of Evaluation: 14:08 IV Fluids: 100 NS Blood Products: 0 Estimated Blood Loss: 10 Urinary Output: 0 Blood Pressure Systolic: 131 Blood Pressure Diastolic: 67 Pulse Rate: 89 Respiratory Rate: 20 - Mech Ventilation O2 Sat by Pulse Oximetry: 100 Temperature (Fahrenheit): 98.4 Pain Score (1-10): 0 Nausea: No Vomiting: No Complications 0 Patient Status: no response, patent, ventilated, none Hydration Status: adequate Dru Gram Ancef IV Given Within 1 Hr of Incision: Yes Time Given: 13:03 Elmer Montanez MD Apr 08, 2018 13:19
--- NOTE | 2018-04-08 13:31 | GI Progress Note ---
Assessment/Plan Problems: (1) Encounter for PEG (percutaneous endoscopic gastrostomy) ICD Codes: Z43.1 - Encounter for attention to gastrostomy SNOMED: 481337911, 498877000 (2) At high risk for aspiration ICD Codes: Z91.89 - Other specified personal risk factors, not elsewhere classified SNOMED: 864141728 (3) Protein-calorie malnutrition, severe ICD Codes: E43 - Unspecified severe protein-calorie malnutrition SNOMED: 914952629 (4) Dysphasia ICD Codes: R47.02 - Dysphasia SNOMED: 20041609 Status: stable Status Narrative Discussed with Dr. Velez. Assessment/Plan tracheostomy scheduled today s/p GT placement GTF and care, reported patient is not tolerating her G-tube feedings Increase Reglan to 10 mg ATC, restart feedings at low rate then advance to goal fu labs Follow-up pulmonary recommendations The patient was seen and examined at bedside and all new and available data was reviewed in the patients chart. I agree with the above findings, impression and plan. (Patient seen earlier today. Signature stamp does not reflect patient encounter time.). - Ernesto Velez MD Subjective Subjective Limited Objective Last 24 Hour Vital Signs Date Time Temp Pulse Resp B/P (MAP) Pulse Ox O2 Delivery O2 Flow Rate FiO2 04/08/18 13:26 45 04/08/18 13:26 45 04/08/18 12:00 97.5 90 14 116/83 (94) 100 04/08/18 12:00 Bi-pap 15.0 Bi-pap 04/08/18 09:33 88 04/08/18 08:47 96 29 100 Venturi Mask 10.0 45 04/08/18 08:40 100 Bi-pap 45 04/08/18 08:40 Bi-pap 45 04/08/18 08:40 94 30 100 Bi-pap 45 04/08/18 08:00 99.3 97 24 99/69 (79) 100 04/08/18 08:00 Bi-pap 15.0 Bi-pap 04/08/18 08:00 93 04/08/18 05:24 85 22 100 Facial 45 04/08/18 04:00 Bi-pap Bi-pap 04/08/18 04:00 97.9 90 24 98/68 (78) 100 90 04/08/18 04:00 92 04/08/18 03:11 97 31 99 Facial 45 04/08/18 02:18 96 18 100 Bi-pap 45 04/08/18 02:03 83 17 100 Bi-pap 45 04/08/18 02:02 83 17 100 Facial 45 04/08/18 00:00 Bi-pap Bi-pap 04/08/18 00:00 40 04/08/18 00:00 97.7 91 24 100/63 (75) 99 91 04/08/18 00:00 89 04/07/18 23:00 94 19 97 Full Face 45 04/07/18 20:00 98.1 98 24 100/65 (77) 100 98 04/07/18 20:00 Venturi Mask 15.0 Venturi Mask 15.0 04/07/18 20:00 99 04/07/18 19:30 100 22 99 Venturi Mask 10.0 45 04/07/18 19:17 Venturi Mask 10.0 40 04/07/18 19:17 101 22 98 Venturi Mask 10.0 45 04/07/18 19:17 98 Venturi Mask 10.0 40 04/07/18 18:00 Venturi Mask 15.0 Venturi Mask 15.0 04/07/18 16:00 Venturi Mask 15.0 Venturi Mask 15.0 04/07/18 16:00 98.2 95 24 104/66 (79) 98 95 04/07/18 15:44 96 Intake and Output 04/07/18 04/08/18 19:00 07:00 Intake Total 875 ml 225 ml Output Total 1150 ml 102 ml Balance -275 ml 123 ml Intake Free Water 60 ml IV Total 275 ml Tube Feeding 540 ml 225 ml Output Urine Total 800 ml 2 ml Stool Total 350 ml 100 ml Laboratory Tests Test 04/08/18 04:00 White Blood Count 12.8 K/UL (4.8-10.8) H Red Blood Count 3.03 M/UL (4.20-5.40) L Hemoglobin 9.1 G/DL (12.0-16.0) L Hematocrit 29.2 % (37.0-47.0) L Mean Corpuscular Volume 96 FL (80-99) Mean Corpuscular Hemoglobin 30.1 PG (27.0-31.0) Mean Corpuscular Hemoglobin Concent 31.2 G/DL (32.0-36.0) L Red Cell Distribution Width 14.9 % (11.6-14.8) H Platelet Count 320 K/UL (150-450) Mean Platelet Volume 5.0 FL (6.5-10.1) L Neutrophils (%) (Auto) 77.2 % (45.0-75.0) H Lymphocytes (%) (Auto) 10.8 % (20.0-45.0) L Monocytes (%) (Auto) 9.4 % (1.0-10.0) Eosinophils (%) (Auto) 1.8 % (0.0-3.0) Basophils (%) (Auto) 0.9 % (0.0-2.0) Prothrombin Time 11.4 SEC (9.30-11.50) Prothromb Time International Ratio 1.1 (0.9-1.1) Activated Partial Thromboplast Time 29 SEC (23-33) Sodium Level 139 MMOL/L (136-145) Potassium Level 4.6 MMOL/L (3.5-5.1) Chloride Level 104 MMOL/L (98-107) Carbon Dioxide Level 34 MMOL/L (21-32) H Anion Gap 1 mmol/L (5-15) L Blood Urea Nitrogen 13 mg/dL (7-18) Creatinine 0.5 MG/DL (0.55-1.30) L Estimat Glomerular Filtration Rate mL/min (>60) Glucose Level 78 MG/DL (74-106) Calcium Level 8.0 MG/DL (8.5-10.1) L Phosphorus Level 1.7 MG/DL (2.5-4.9) L Magnesium Level 1.7 MG/DL (1.8-2.4) L Total Bilirubin 0.3 MG/DL (0.2-1.0) Aspartate Amino Transf (AST/SGOT) 22 U/L (15-37) Alanine Aminotransferase (ALT/SGPT) 11 U/L (12-78) L Alkaline Phosphatase 112 U/L (46-116) Pro-B-Type Natriuretic Peptide 1757 pg/mL (0-125) H Total Protein 5.0 G/DL (6.4-8.2) L Albumin 1.3 G/DL (3.4-5.0) L Globulin 3.7 g/dL Albumin/Globulin Ratio 0.4 (1.0-2.7) L Height (Feet): 5 Height (Inches): 3.00 Weight (Pounds): 156 General Appearance: no apparent distress, thin Cardiovascular: normal rate Respiratory/Chest: normal breath sounds, no respiratory distress Abdominal Exam: normal bowel sounds, non tender, soft, GT site - c/d/i Extremities: non-tender Thaddeus Galeana NP Apr 08, 2018 13:31
--- NOTE | 2018-04-08 13:50 | Brief Operative Note ---
Immediate Post Operative Note Operative Note Pre-op Diagnosis: respiratory insufficiency; unable to protect airway; excessive secretions Procedure: tracheostomy Post-op Diagnosis: same as pre-op Surgeon: kathleen Anesthesiologist: waqas Anesthesia: general, local Specimen: none Complications: none Condition: stable Fluids: see records Estimated Blood Loss: minimal Drains: none Implant(s) used?: No Derick Ramsay Apr 08, 2018 13:50
[2018-04-08] MEDS ORDERED: Acetaminophen 650mg/20.3ml PEG PRN (14:53)
[2018-04-08] MEDS ORDERED: Miralax 17gm pkt GT PRN (14:54)
--- NOTE | 2018-04-08 16:43 | Internal Med Progress Note ---
Subjective Date of Service: Apr 08, 2018 Physician Name Shankar Betts Attending Physician Davian Scott MD Current Medications Medications (Trade) Dose Ordered Sig/Cele Route PRN Reason Start Time Stop Time Status Last Admin Dose Admin Acetaminophen (Tylenol) 650 mg Q4H PRN PEG fever (temp>100.5F) 04/08/18 14:53 05/08/18 14:52 Acetylcysteine (Mucomyst) 200 mg Q6HRT HHN 04/08/18 19:00 05/03/18 12:59 Amiodarone HCl (Cordarone) 200 mg DAILY GT 04/09/18 09:00 05/04/18 08:59 Digoxin (Lanoxin) 0.125 mg DAILY GT 04/09/18 09:00 05/07/18 08:59 Ipratropium Arabi (Atrovent) 500 mcg Q4H PRN HHN Shortness of Breath 04/08/18 14:54 04/11/18 14:53 Meropenem 1 gm/ Sodium Chloride 55 ml @ 110 mls/hr Q12H IVPB 04/08/18 17:00 04/12/18 16:59 Metoclopramide HCl (Reglan) 10 mg EVERY 8 HOURS GT 04/08/18 22:00 05/02/18 13:59 Micafungin Sodium 100 mg/Sodium Chloride 110 ml @ 110 mls/hr Q24H IVPB 04/09/18 12:00 04/14/18 11:59 Pantoprazole (Protonix) 40 mg EVERY 12 HOURS IVP 04/08/18 21:00 04/26/18 20:59 Polyethylene Glycol (Miralax) 17 gm DAILYPRN PRN GT Constipation 04/08/18 14:54 05/08/18 14:53 Allergies: Coded Allergies: No Known Allergies (Unverified , 03/06/18) ROS Limited/Unobtainable: Yes Subjective 87 YO F admitted with hematuria and gen weakness. Now pyelonephritis respiratory distress and sepsis. Cover for Int Med-Dr Scott. ICU. S/P tracheostomy 04/08/18 Objective Last Vital Signs Date Time Temp Pulse Resp B/P (MAP) Pulse Ox O2 Delivery O2 Flow Rate FiO2 04/08/18 16:00 Trach Collar Trach Collar 04/08/18 15:36 102 14 45 04/08/18 14:15 123/68 (86) 95 04/08/18 13:45 97.0 04/08/18 12:00 15.0 Laboratory Tests Test 04/08/18 04:00 White Blood Count 12.8 K/UL (4.8-10.8) H Red Blood Count 3.03 M/UL (4.20-5.40) L Hemoglobin 9.1 G/DL (12.0-16.0) L Hematocrit 29.2 % (37.0-47.0) L Mean Corpuscular Volume 96 FL (80-99) Mean Corpuscular Hemoglobin 30.1 PG (27.0-31.0) Mean Corpuscular Hemoglobin Concent 31.2 G/DL (32.0-36.0) L Red Cell Distribution Width 14.9 % (11.6-14.8) H Platelet Count 320 K/UL (150-450) Mean Platelet Volume 5.0 FL (6.5-10.1) L Neutrophils (%) (Auto) 77.2 % (45.0-75.0) H Lymphocytes (%) (Auto) 10.8 % (20.0-45.0) L Monocytes (%) (Auto) 9.4 % (1.0-10.0) Eosinophils (%) (Auto) 1.8 % (0.0-3.0) Basophils (%) (Auto) 0.9 % (0.0-2.0) Prothrombin Time 11.4 SEC (9.30-11.50) Prothromb Time International Ratio 1.1 (0.9-1.1) Activated Partial Thromboplast Time 29 SEC (23-33) Sodium Level 139 MMOL/L (136-145) Potassium Level 4.6 MMOL/L (3.5-5.1) Chloride Level 104 MMOL/L (98-107) Carbon Dioxide Level 34 MMOL/L (21-32) H Anion Gap 1 mmol/L (5-15) L Blood Urea Nitrogen 13 mg/dL (7-18) Creatinine 0.5 MG/DL (0.55-1.30) L Estimat Glomerular Filtration Rate mL/min (>60) Glucose Level 78 MG/DL (74-106) Calcium Level 8.0 MG/DL (8.5-10.1) L Phosphorus Level 1.7 MG/DL (2.5-4.9) L Magnesium Level 1.7 MG/DL (1.8-2.4) L Total Bilirubin 0.3 MG/DL (0.2-1.0) Aspartate Amino Transf (AST/SGOT) 22 U/L (15-37) Alanine Aminotransferase (ALT/SGPT) 11 U/L (12-78) L Alkaline Phosphatase 112 U/L (46-116) Pro-B-Type Natriuretic Peptide 1757 pg/mL (0-125) H Total Protein 5.0 G/DL (6.4-8.2) L Albumin 1.3 G/DL (3.4-5.0) L Globulin 3.7 g/dL Albumin/Globulin Ratio 0.4 (1.0-2.7) L Intake and Output 04/07/18 04/08/18 19:00 07:00 Intake Total 875 ml 225 ml Output Total 1150 ml 102 ml Balance -275 ml 123 ml Intake Free Water 60 ml IV Total 275 ml Tube Feeding 540 ml 225 ml Output Urine Total 800 ml 2 ml Stool Total 350 ml 100 ml Objective PHYSICAL EXAMINATION: GENERAL: The patient is a well-developed and well-nourished white female, in no apparent distress. HEENT: Eyes, pupils are equal and responsive to light and accommodation. Extraocular movements are intact. NECK: Supple without lymphadenopathy. CHEST: venturi mask; crackles and rales at bases; Decreased breath sounds at bilateral bases. Otherwise, clear to auscultation without wheezes or rales. CARDIOVASCULAR: Tachycardic. Regular rate and rhythm. S1, S2 are normal without murmurs, rubs, or gallops. ABDOMEN: Soft, nontender, and nondistended. Positive bowel sounds. No evidence of hepatosplenomegaly. Currently, no rebound or guarding noted. EXTREMITIES: Negative for clubbing, cyanosis, or edema. RECTAL/GENITAL: Deferred. NEUROLOGIC: Cranial nerves II through XII are grossly intact without focal deficits. Assessment/Plan Problem List: (1) Pyelonephritis Assessment & Plan: Pseudamonas and strep. See ID note-Continue meropenem and vanco (2) Sepsis (3) HTN (hypertension) Assessment & Plan: Currently hypotensive (4) Hypercholesteremia (5) Sacral decubitus ulcer, stage IV Assessment & Plan: See surgery note-dr Ramsay (6) Urinary tract infection Assessment & Plan: pseudamonas; continue cefepime per ID (7) Pneumonia Assessment & Plan: New RLL. Previously MRSA. Continue vanco and meropenem per ID (8) Atrial fibrillation with RVR Assessment & Plan: Continue digoxin and amiodrone per cardiology (9) Respiratory failure Assessment & Plan: S/P tracheostomy-see surgery and pulmonary note. Assessment/Plan prognosis guarded Shankar Betts MD Apr 08, 2018 16:43
--- NOTE | 2018-04-08 19:15 | Operative Note - Dictated ---
DATE OF OPERATION: 04/06/2018 PREOPERATIVE DIAGNOSES: 1. Respiratory insufficiency. 2. Unable to protect airway. 3. Excessive secretions. POSTOPERATIVE DIAGNOSES: 1. Respiratory insufficiency. 2. Unable to protect airway. 3. Excessive secretions. OPERATION PERFORMED: Tracheostomy. ATTENDING SURGEON: Derick Ramsay M.D. POWER HAMMER OPERATOR: None. ANESTHESIOLOGIST: Elmer Montanez M.D. ANESTHESIA: General ROUTE SPECIALIST. ESTIMATED BLOOD LOSS: Minimal. IV FLUIDS: Please see anesthesia records. COMPLICATIONS: None. DRAINS: None. SPECIMENS: None. IMPLANTS: An 6-[place] Shiley tracheostomy. COUNTS: Sponge and needle count correct x2. WOUND CONSULTATION: Class 1. ANTIBIOTICS: A 2 g Ancef IV given one hour prior to cut time. INDICATIONS FOR PROCEDURE: This is a 88-year-old female who is currently admitted to [facility] for medical care and management who is unable to be weaned from oxygen support as well as has excessive secretions which are not manageable and with inability to protect her airway resulting in high risk for aspiration and further complications. Therefore, tracheostomy was indicated and recommended. Risks, benefits, alternatives were discussed in detail and surgical consent was obtained for surgery, which was scheduled for 04/06/2018. OPERATIVE NOTE: The patient was taken to the operating room and made comfortable. Preoperative time-out was taken identifying the patient, procedure, operative staff, and surgical staff. SCDs were placed. General anesthesia was induced and the patient was intubated. The neck was prepped and draped in standard surgical fashion. The patient had significant contractions of lower extremities and neck and therefore great care was taken throughout the procedure to protect the patient's bony prominences and contractures. The neck was prepped in a standard surgical fashion. Anatomical landmarks are identified. Local anesthetic was infiltrated in the proposed skin incision approximately two fingerbreadths above the sternal notch. Skin incision was made using a fresh #15-scalpel and carried down to through the subcutaneous tissue and platysma to the median raphe which was identified and divided. The tracheal structures were identified with the trachea, cricoid cartilage, and first and second tracheal rings. A first and second tracheal rings were cleared and hemostasis obtained with electrocautery. At this time, a Ravin flap was made in the first and second tracheal ring without complication. The ET tube was identified with assistance of anesthesiologist and slowly withdrawn until the tip seen at the superior aspect of the flap. A trach hook was placed and trachea was stabilized and a 6-[place] Shiley tracheostomy tube was inserted under direct visualization without complication. The balloon was insufflated and cannula was placed. The patient was ventilated through the tracheostomy with good end-tidal CO2 and volumes. Deep suctioning was performed and following this, the skin incisions were cleansed and reapproximated using 3-0 Monocryl sutures. A trach tie and dressings were applied. The patient tolerated the procedure well was taken directly to the intensive care unit in a stable condition. Derick Ramsay M.D. DR: Hemal JOB#: [id number] CC:
[2018-04-08] MEDS: Levalbuterol Inh UD 1.25mg/0.5ml HHN PRN (20:17)
[2018-04-09] VITALS (21 sets, daily range): BP systolic 84–128; BP diastolic 41–78
[2018-04-09] MEDS: Acetylcysteine 20% Soln 4ml HHN SCH ×4 (01:00→19:22)
[2018-04-09] MEDS: Levalbuterol Inh UD 1.25mg/0.5ml HHN PRN (01:00)
[2018-04-09 05:28] LABS: BASOPHILS % (AUTO) 0.7 % (0.0-2.0); EOSINOPHILS % (AUTO) 0.2 % (0.0-3.0); HEMATOCRIT 25.8 % (37.0-47.0); HEMOGLOBIN 8.5 G/DL (12.0-16.0); LYMPHOCYTES % (AUTO) 8.6 % (20.0-45.0); MEAN CORPUSCULAR VOLUME 94 FL (80-99); MONOCYTES % (AUTO) 9.7 % (1.0-10.0); NEUTROPHILS % (AUTO) 80.8 % (45.0-75.0); PLATELET COUNT 303 K/UL (150-450); RED BLOOD COUNT 2.76 M/UL (4.20-5.40); RED CELL DISTRIBUTION WIDTH 14.3 % (11.6-14.8); WHITE BLOOD COUNT 14.3 K/UL (4.8-10.8)
[2018-04-09] MEDS: Meropenem 1 GM in NS 55 ML IVPB SCH ×2 (05:37→16:22)
[2018-04-09] MEDS: Metoclopramide 10mg/10ml Liq GT SCH ×3 (05:38→21:07)
[2018-04-09 06:16] LABS: ALANINE AMINOTRANSFERASE 10 U/L (12-78); ALBUMIN 1.2 G/DL (3.4-5.0); ALBUMIN/GLOBULIN RATIO 0.4 (1.0-2.7); ALKALINE PHOSPHATASE 103 U/L (46-116); ANION GAP 2 mmol/L (5-15); ASPARTATE AMINO TRANSFERASE 21 U/L (15-37); BILIRUBIN,TOTAL 0.3 MG/DL (0.2-1.0); BLOOD UREA NITROGEN 13 mg/dL (7-18); CALCIUM 7.8 MG/DL (8.5-10.1); CARBON DIOXIDE 31 MMOL/L (21-32); CHLORIDE 105 MMOL/L (98-107); CREATININE 0.5 MG/DL (0.55-1.30); PHOSPHORUS 1.7 MG/DL (2.5-4.9); POTASSIUM 4.3 MMOL/L (3.5-5.1); SODIUM 138 MMOL/L (136-145)
[2018-04-09] MEDS: Ipratropium 0.02% Inh Soln 2.5ml UD HHN PRN ×3 (07:47→19:21)
[2018-04-09] MEDS ORDERED: Amiodarone 200mg tab GT SCH (09:00)
[2018-04-09] MEDS ORDERED: Digoxin 0.125mg tab GT SCH (09:00)
[2018-04-09] MEDS: Pantoprazole Inj IVP SCH ×2 (09:39→20:39)
--- NOTE | 2018-04-09 10:08 | 48 Hour Post Anesthesia Eval ---
Post Anesthesia Evaluation Procedure: Tracheostomy Date of Evaluation: Apr 09, 2018 Time of Evaluation: 10:07 Blood Pressure Systolic: 94 0: 56 Pulse Rate: 72 Respiratory Rate: 18 Temperature (Fahrenheit): 97.4 O2 Sat by Pulse Oximetry: 97 Airway: other - tracheostomy in place Nausea: No Vomiting: No Pain Intensity: 1 Hydration Status: adequate Cardiopulmonary Status: no pressors Mental Status/LOC: patient returned to baseline Follow-up Care/Observations: n/a Post-Anesthesia Complications: none Follow-up care needed: N/A Jarrell Mandel MD Apr 09, 2018 10:08
--- NOTE | 2018-04-09 11:10 | Pulmonolgy Critical Care Note ---
Critical Care - Asmt/Plan Problems: (1) Respiratory distress (2) Pleural effusion (3) Pneumonia (4) Atrial fibrillation with RVR (5) Sacral decubitus ulcer, stage IV (6) Protein-calorie malnutrition, severe (7) At high risk for aspiration Respiratory: monitor respiratory rate, adjust FIO2, CXR Cardiac: continue to monitor HR/BP Renal: F/U I&O, keep IV fluid Infectious Disease: check cultures, continue antibiotics Gastrointestinal: continue feedings/current rate, hold feedings Hematologic: monitor H/H, transfuse if hgb<8.5 Neurologic: PRN Morphine, keep patient comfortable Prophylaxis: Protonix, Heparin Notes Reviewed: buffing turner and counter, 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 with: nurses, consultants, director casebusiness continuity manager - Objective Last 24 Hour Vital Signs Date Time Temp Pulse Resp B/P (MAP) Pulse Ox O2 Delivery O2 Flow Rate FiO2 04/09/18 10:08 72 18 97 04/09/18 10:00 96 17 89/44 (59) 100 04/09/18 09:39 100 04/09/18 09:23 102 27 45 04/09/18 09:00 100 17 89/48 (62) 100 04/09/18 08:00 96 04/09/18 08:00 45 04/09/18 08:00 98.6 99 17 99/52 (68) 100 04/09/18 08:00 Mechanical Ventilator Mechanical Ventilator 04/09/18 07:55 97 14 100 Mechanical Ventilator 45 04/09/18 07:40 100 14 100 Mechanical Ventilator 45 04/09/18 07:29 100 14 45 04/09/18 07:00 97 17 84/51 (62) 100 04/09/18 06:00 99 17 90/49 (63) 100 04/09/18 05:20 107 25 45 04/09/18 05:00 108 25 97/57 (70) 100 04/09/18 04:00 100.0 103 18 88/44 (59) 99 04/09/18 04:00 45 04/09/18 04:00 Mechanical Ventilator Mechanical Ventilator 04/09/18 04:00 105 04/09/18 03:00 107 21 90/41 (57) 97 04/09/18 02:54 108 23 45 04/09/18 02:00 107 19 96/47 (63) 94 04/09/18 01:10 103 16 100 Mechanical Ventilator 45 04/09/18 01:00 102 16 45 04/09/18 01:00 102 16 100 Mechanical Ventilator 45 04/09/18 01:00 107 14 98/44 (62) 100 04/09/18 00:00 99.5 101 16 91/50 (64) 100 04/09/18 00:00 Mechanical Ventilator Mechanical Ventilator 04/09/18 00:00 101 04/09/18 00:00 45 04/08/18 23:00 101 17 94/51 (65) 100 04/08/18 22:39 102 16 45 04/08/18 22:00 104 16 94/42 (59) 100 04/08/18 21:00 102 20 111/66 (81) 100 04/08/18 20:57 103 15 45 04/08/18 20:28 107 21 100 Mechanical Ventilator 45 04/08/18 20:18 101 16 100 Mechanical Ventilator 45 04/08/18 20:00 99.3 106 22 93/46 (62) 99 04/08/18 20:00 Mechanical Ventilator Mechanical Ventilator 04/08/18 20:00 45 04/08/18 20:00 106 04/08/18 19:05 104 23 45 04/08/18 19:00 109 15 111/50 (70) 100 04/08/18 18:00 98 14 118/63 (81) 96 04/08/18 17:46 103 18 45 04/08/18 17:00 102 14 113/58 (76) 96 04/08/18 16:00 Trach Collar Trach Collar 04/08/18 16:00 97.6 95 14 121/67 (85) 97 04/08/18 16:00 93 04/08/18 15:36 102 14 45 04/08/18 15:30 102 15 121/67 (85) 96 04/08/18 15:00 94 14 119/66 (83) 94 04/08/18 14:15 92 14 123/68 (86) 95 04/08/18 14:00 Trach Collar Trach Collar 04/08/18 14:00 91 14 110/52 (71) 95 04/08/18 13:53 93 14 45 04/08/18 13:47 89 20 100 04/08/18 13:45 97.0 92 14 129/69 (89) 97 04/08/18 13:30 45 04/08/18 13:26 45 04/08/18 13:26 45 04/08/18 12:00 97.5 90 14 116/83 (94) 100 04/08/18 12:00 Bi-pap 15.0 Bi-pap 04/08/18 12:00 91 Status: awake Condition: critical HEENT: atraumatic Neck: full ROM Lungs: clear Heart: HR/BP stable, HR/BP unstable Abdomen: soft, non-tender, feeding tube Extremities: edema Micro: Microbiology Date/Time Source Procedure Growth Status 04/07/18 11:38 Blood Blood Culture - Preliminary NO GROWTH AFTER 24 HOURS Resulted 04/07/18 11:30 Blood Blood Culture - Preliminary NO GROWTH AFTER 24 HOURS Resulted Accucheck: 111 Critical Care - Subjective ROS Limited/Unobtainable: Yes Interval Events: tolerated the trach very well. FI02: 45 Vent Support Breath Rate: 14 Vent Support Mode: AC Vent Tidal Volume: 400 Sputum Amount: Moderate PEEP: 0.0 PIP: 14 Tube Feeding Amount: 45 I&O: Intake and Output 04/08/18 04/09/18 19:00 07:00 Intake Total 80 ml 270 ml Output Total 36 ml 650 ml Balance 44 ml -380 ml Intake Free Water 50 ml Tube Feeding 30 ml 270 ml Output Urine Total 1 ml 600 ml Stool Total 35 ml 50 ml CXR: trach in good position Labs: Laboratory Tests Test 04/09/18 04:35 04/09/18 09:05 White Blood Count 14.3 K/UL (4.8-10.8) H Red Blood Count 2.76 M/UL (4.20-5.40) L Hemoglobin 8.5 G/DL (12.0-16.0) L Hematocrit 25.8 % (37.0-47.0) L Mean Corpuscular Volume 94 FL (80-99) Mean Corpuscular Hemoglobin 30.7 PG (27.0-31.0) Mean Corpuscular Hemoglobin Concent 32.9 G/DL (32.0-36.0) Red Cell Distribution Width 14.3 % (11.6-14.8) Platelet Count 303 K/UL (150-450) Mean Platelet Volume 5.5 FL (6.5-10.1) L Neutrophils (%) (Auto) 80.8 % (45.0-75.0) H Lymphocytes (%) (Auto) 8.6 % (20.0-45.0) L Monocytes (%) (Auto) 9.7 % (1.0-10.0) Eosinophils (%) (Auto) 0.2 % (0.0-3.0) Basophils (%) (Auto) 0.7 % (0.0-2.0) Sodium Level 138 MMOL/L (136-145) Potassium Level 4.3 MMOL/L (3.5-5.1) Chloride Level 105 MMOL/L (98-107) Carbon Dioxide Level 31 MMOL/L (21-32) Anion Gap 2 mmol/L (5-15) L Blood Urea Nitrogen 13 mg/dL (7-18) Creatinine 0.5 MG/DL (0.55-1.30) L Estimat Glomerular Filtration Rate mL/min (>60) Glucose Level 125 MG/DL (74-106) H Calcium Level 7.8 MG/DL (8.5-10.1) L Phosphorus Level 1.7 MG/DL (2.5-4.9) L Magnesium Level 1.9 MG/DL (1.8-2.4) Total Bilirubin 0.3 MG/DL (0.2-1.0) Aspartate Amino Transf (AST/SGOT) 21 U/L (15-37) Alanine Aminotransferase (ALT/SGPT) 10 U/L (12-78) L Alkaline Phosphatase 103 U/L (46-116) Total Protein 4.5 G/DL (6.4-8.2) L Albumin 1.2 G/DL (3.4-5.0) L Globulin 3.3 g/dL Albumin/Globulin Ratio 0.4 (1.0-2.7) L Arterial Blood pH 7.570 (7.350-7.450) Arterial Blood Partial Pressure CO2 36.2 mmHg (35.0-45.0) Arterial Blood Partial Pressure O2 129.1 mmHg (75.0-100.0) H Arterial Blood HCO3 32.4 mmol/L (22.0-26.0) H Arterial Blood Oxygen Saturation 98.5 % (95-100) Arterial Blood Base Excess 9.7 (-2-2) *H Temo Test Positive Rishi Gutierrez MD Apr 09, 2018 11:10
[2018-04-09] MEDS ORDERED: NS 275ml ONE ×2 (11:13→15:20)
[2018-04-09] MEDS ORDERED: Micafungin 100 MG in NS 110 ML IVPB SCH (12:00)
--- NOTE | 2018-04-09 12:01 | GI Progress Note ---
Assessment/Plan Problems: (1) Encounter for PEG (percutaneous endoscopic gastrostomy) ICD Codes: Z43.1 - Encounter for attention to gastrostomy SNOMED: 969178236, 990633632 (2) At high risk for aspiration ICD Codes: Z91.89 - Other specified personal risk factors, not elsewhere classified SNOMED: 853459228 (3) Protein-calorie malnutrition, severe ICD Codes: E43 - Unspecified severe protein-calorie malnutrition SNOMED: 259878295 (4) Dysphasia ICD Codes: R47.02 - Dysphasia SNOMED: 21337076 Status: unchanged Status Narrative Discussed with Dr. Velez. Assessment/Plan s/p tracheostomy s/p GT placement GTF and care, reported patient is not tolerating her G-tube feedings Increase Reglan to 10 mg ATC, restart feedings at low rate then advance to goal fu labs Follow-up pulmonary recommendations The patient was seen and examined at bedside and all new and available data was reviewed in the patients chart. I agree with the above findings, impression and plan. (Patient seen earlier today. Signature stamp does not reflect patient encounter time.). - Ernesto Velez MD Subjective Subjective Limited Objective Last 24 Hour Vital Signs Date Time Temp Pulse Resp B/P (MAP) Pulse Ox O2 Delivery O2 Flow Rate FiO2 04/09/18 11:13 98 21 45 04/09/18 11:00 99 14 87/46 (60) 100 04/09/18 10:08 72 18 97 04/09/18 10:00 96 17 89/44 (59) 100 04/09/18 09:39 100 04/09/18 09:23 102 27 45 04/09/18 09:00 100 17 89/48 (62) 100 04/09/18 08:00 96 04/09/18 08:00 45 04/09/18 08:00 98.6 99 17 99/52 (68) 100 04/09/18 08:00 Mechanical Ventilator Mechanical Ventilator 04/09/18 07:55 97 14 100 Mechanical Ventilator 45 04/09/18 07:40 100 14 100 Mechanical Ventilator 45 04/09/18 07:29 100 14 45 04/09/18 07:00 97 17 84/51 (62) 100 04/09/18 06:00 99 17 90/49 (63) 100 04/09/18 05:20 107 25 45 04/09/18 05:00 108 25 97/57 (70) 100 04/09/18 04:00 100.0 103 18 88/44 (59) 99 04/09/18 04:00 45 04/09/18 04:00 Mechanical Ventilator Mechanical Ventilator 04/09/18 04:00 105 04/09/18 03:00 107 21 90/41 (57) 97 04/09/18 02:54 108 23 45 04/09/18 02:00 107 19 96/47 (63) 94 04/09/18 01:10 103 16 100 Mechanical Ventilator 45 04/09/18 01:00 102 16 45 04/09/18 01:00 102 16 100 Mechanical Ventilator 45 04/09/18 01:00 107 14 98/44 (62) 100 04/09/18 00:00 99.5 101 16 91/50 (64) 100 04/09/18 00:00 Mechanical Ventilator Mechanical Ventilator 04/09/18 00:00 101 04/09/18 00:00 45 04/08/18 23:00 101 17 94/51 (65) 100 04/08/18 22:39 102 16 45 04/08/18 22:00 104 16 94/42 (59) 100 04/08/18 21:00 102 20 111/66 (81) 100 04/08/18 20:57 103 15 45 04/08/18 20:28 107 21 100 Mechanical Ventilator 45 04/08/18 20:18 101 16 100 Mechanical Ventilator 45 04/08/18 20:00 99.3 106 22 93/46 (62) 99 04/08/18 20:00 Mechanical Ventilator Mechanical Ventilator 04/08/18 20:00 45 04/08/18 20:00 106 04/08/18 19:05 104 23 45 04/08/18 19:00 109 15 111/50 (70) 100 04/08/18 18:00 98 14 118/63 (81) 96 04/08/18 17:46 103 18 45 04/08/18 17:00 102 14 113/58 (76) 96 04/08/18 16:00 Trach Collar Trach Collar 04/08/18 16:00 97.6 95 14 121/67 (85) 97 04/08/18 16:00 93 04/08/18 15:36 102 14 45 04/08/18 15:30 102 15 121/67 (85) 96 04/08/18 15:00 94 14 119/66 (83) 94 04/08/18 14:15 92 14 123/68 (86) 95 04/08/18 14:00 Trach Collar Trach Collar 04/08/18 14:00 91 14 110/52 (71) 95 04/08/18 13:53 93 14 45 04/08/18 13:47 89 20 100 04/08/18 13:45 97.0 92 14 129/69 (89) 97 04/08/18 13:30 45 04/08/18 13:26 45 04/08/18 13:26 45 Intake and Output 04/08/18 04/09/18 19:00 07:00 Intake Total 80 ml 270 ml Output Total 36 ml 650 ml Balance 44 ml -380 ml Intake Free Water 50 ml Tube Feeding 30 ml 270 ml Output Urine Total 1 ml 600 ml Stool Total 35 ml 50 ml Laboratory Tests Test 04/09/18 04:35 04/09/18 09:05 White Blood Count 14.3 K/UL (4.8-10.8) H Red Blood Count 2.76 M/UL (4.20-5.40) L Hemoglobin 8.5 G/DL (12.0-16.0) L Hematocrit 25.8 % (37.0-47.0) L Mean Corpuscular Volume 94 FL (80-99) Mean Corpuscular Hemoglobin 30.7 PG (27.0-31.0) Mean Corpuscular Hemoglobin Concent 32.9 G/DL (32.0-36.0) Red Cell Distribution Width 14.3 % (11.6-14.8) Platelet Count 303 K/UL (150-450) Mean Platelet Volume 5.5 FL (6.5-10.1) L Neutrophils (%) (Auto) 80.8 % (45.0-75.0) H Lymphocytes (%) (Auto) 8.6 % (20.0-45.0) L Monocytes (%) (Auto) 9.7 % (1.0-10.0) Eosinophils (%) (Auto) 0.2 % (0.0-3.0) Basophils (%) (Auto) 0.7 % (0.0-2.0) Sodium Level 138 MMOL/L (136-145) Potassium Level 4.3 MMOL/L (3.5-5.1) Chloride Level 105 MMOL/L (98-107) Carbon Dioxide Level 31 MMOL/L (21-32) Anion Gap 2 mmol/L (5-15) L Blood Urea Nitrogen 13 mg/dL (7-18) Creatinine 0.5 MG/DL (0.55-1.30) L Estimat Glomerular Filtration Rate mL/min (>60) Glucose Level 125 MG/DL (74-106) H Calcium Level 7.8 MG/DL (8.5-10.1) L Phosphorus Level 1.7 MG/DL (2.5-4.9) L Magnesium Level 1.9 MG/DL (1.8-2.4) Total Bilirubin 0.3 MG/DL (0.2-1.0) Aspartate Amino Transf (AST/SGOT) 21 U/L (15-37) Alanine Aminotransferase (ALT/SGPT) 10 U/L (12-78) L Alkaline Phosphatase 103 U/L (46-116) Total Protein 4.5 G/DL (6.4-8.2) L Albumin 1.2 G/DL (3.4-5.0) L Globulin 3.3 g/dL Albumin/Globulin Ratio 0.4 (1.0-2.7) L Arterial Blood pH 7.570 (7.350-7.450) Arterial Blood Partial Pressure CO2 36.2 mmHg (35.0-45.0) Arterial Blood Partial Pressure O2 129.1 mmHg (75.0-100.0) H Arterial Blood HCO3 32.4 mmol/L (22.0-26.0) H Arterial Blood Oxygen Saturation 98.5 % (95-100) Arterial Blood Base Excess 9.7 (-2-2) *H Temo Test Positive Height (Feet): 5 Height (Inches): 3.00 Weight (Pounds): 148 General Appearance: no apparent distress Cardiovascular: normal rate Respiratory/Chest: normal breath sounds, no respiratory distress, other - s/p tracheostomy Abdominal Exam: normal bowel sounds, non tender, soft, GT site - c/d/i Extremities: non-tender Thaddeus Galeana NP Apr 09, 2018 12:01
--- NOTE | 2018-04-09 12:03 | Diagnostic Imaging Report ---
Indication: Dyspnea Technique: One view of the chest Comparison: 04/08/2018 Findings: Interim tracheostomy placement. Large left pleural effusion persists. Hazy left lung consolidative opacity persists. Heart size is normal. No pneumothorax or pneumomediastinum demonstrated. The right lung and pleural space remain clear. Impression: Interim tracheostomy placement. No radiographically evident complication Otherwise stable findings as described
--- NOTE | 2018-04-09 12:07 | Cardiac Electrophysiology PN ---
Assessment/Plan Status Narrative Technically difficult study due to patient was contracted. Study quality precludes accurate assessment of regional wall motion. Normal left ventricular chamber size, systolic function and wall motion. Left ventricular ejection fraction estimated to be 60-65 %. Mild left ventricular hypertrophy. Small circumferential pericardial effusion. Mild left atrial enlargement. Right cardiac chamber sizes are within normal limits. Aortic valve calcification with decreased cusp excursion c/w aortic stenosis. Mildly thickened mitral valve leaflets with normal excursion. Moderate mitral annulus and aortic root calcification. Normal pulmonic valve structure. Normal tricuspid valve structure. Subcostal views not obtainable due to G tube. Assessment/Plan 1. Paroxysmal atrial fibrillation with rapid ventricular response. Off Cardizem drip Echo EF 65%. On Digoxin 0.125 GT daily and Amio 200 GT Converted to SR with PACs 2. Urosepsis. On IV antibiotic per ID. 3. Hypotension, off pressors and on IV fluid. 4. Sacral decubitus ulcer. 5. Dementia. 6. Dysphagia. S/P G-tube placement 03/21/17 7. Pleural effusion. S/P 200 cc L Thoracentesis 8. Respiratory failure. S/P Tracheostomy KEIRY RN Subjective Subjective In SR with PACs. On Amiodarone via GT S/P 200cc Left lung thoracentesis 04/04/18. On vent via Trach S/P tracheostomy by Dr Ramsay Objective Last 24 Hour Vital Signs Date Time Temp Pulse Resp B/P (MAP) Pulse Ox O2 Delivery O2 Flow Rate FiO2 04/09/18 11:13 98 21 45 04/09/18 11:00 99 14 87/46 (60) 100 04/09/18 10:08 72 18 97 04/09/18 10:00 96 17 89/44 (59) 100 04/09/18 09:39 100 04/09/18 09:23 102 27 45 04/09/18 09:00 100 17 89/48 (62) 100 04/09/18 08:00 96 04/09/18 08:00 45 04/09/18 08:00 98.6 99 17 99/52 (68) 100 04/09/18 08:00 Mechanical Ventilator Mechanical Ventilator 04/09/18 07:55 97 14 100 Mechanical Ventilator 45 04/09/18 07:40 100 14 100 Mechanical Ventilator 45 04/09/18 07:29 100 14 45 04/09/18 07:00 97 17 84/51 (62) 100 04/09/18 06:00 99 17 90/49 (63) 100 04/09/18 05:20 107 25 45 04/09/18 05:00 108 25 97/57 (70) 100 04/09/18 04:00 100.0 103 18 88/44 (59) 99 04/09/18 04:00 45 04/09/18 04:00 Mechanical Ventilator Mechanical Ventilator 04/09/18 04:00 105 04/09/18 03:00 107 21 90/41 (57) 97 04/09/18 02:54 108 23 45 04/09/18 02:00 107 19 96/47 (63) 94 04/09/18 01:10 103 16 100 Mechanical Ventilator 45 04/09/18 01:00 102 16 45 04/09/18 01:00 102 16 100 Mechanical Ventilator 45 04/09/18 01:00 107 14 98/44 (62) 100 04/09/18 00:00 99.5 101 16 91/50 (64) 100 04/09/18 00:00 Mechanical Ventilator Mechanical Ventilator 04/09/18 00:00 101 04/09/18 00:00 45 04/08/18 23:00 101 17 94/51 (65) 100 04/08/18 22:39 102 16 45 04/08/18 22:00 104 16 94/42 (59) 100 04/08/18 21:00 102 20 111/66 (81) 100 04/08/18 20:57 103 15 45 04/08/18 20:28 107 21 100 Mechanical Ventilator 45 04/08/18 20:18 101 16 100 Mechanical Ventilator 45 04/08/18 20:00 99.3 106 22 93/46 (62) 99 04/08/18 20:00 Mechanical Ventilator Mechanical Ventilator 04/08/18 20:00 45 04/08/18 20:00 106 04/08/18 19:05 104 23 45 04/08/18 19:00 109 15 111/50 (70) 100 04/08/18 18:00 98 14 118/63 (81) 96 04/08/18 17:46 103 18 45 04/08/18 17:00 102 14 113/58 (76) 96 04/08/18 16:00 Trach Collar Trach Collar 04/08/18 16:00 97.6 95 14 121/67 (85) 97 04/08/18 16:00 93 04/08/18 15:36 102 14 45 04/08/18 15:30 102 15 121/67 (85) 96 04/08/18 15:00 94 14 119/66 (83) 94 04/08/18 14:15 92 14 123/68 (86) 95 04/08/18 14:00 Trach Collar Trach Collar 04/08/18 14:00 91 14 110/52 (71) 95 04/08/18 13:53 93 14 45 04/08/18 13:47 89 20 100 04/08/18 13:45 97.0 92 14 129/69 (89) 97 04/08/18 13:30 45 04/08/18 13:26 45 04/08/18 13:26 45 04/08/18 12:00 97.5 90 14 116/83 (94) 100 04/08/18 12:00 Bi-pap 15.0 Bi-pap 04/08/18 12:00 91 Intake and Output 04/08/18 04/09/18 19:00 07:00 Intake Total 80 ml 270 ml Output Total 36 ml 650 ml Balance 44 ml -380 ml Intake Free Water 50 ml Tube Feeding 30 ml 270 ml Output Urine Total 1 ml 600 ml Stool Total 35 ml 50 ml Laboratory Tests Test 04/09/18 04:35 04/09/18 09:05 White Blood Count 14.3 K/UL (4.8-10.8) H Red Blood Count 2.76 M/UL (4.20-5.40) L Hemoglobin 8.5 G/DL (12.0-16.0) L Hematocrit 25.8 % (37.0-47.0) L Mean Corpuscular Volume 94 FL (80-99) Mean Corpuscular Hemoglobin 30.7 PG (27.0-31.0) Mean Corpuscular Hemoglobin Concent 32.9 G/DL (32.0-36.0) Red Cell Distribution Width 14.3 % (11.6-14.8) Platelet Count 303 K/UL (150-450) Mean Platelet Volume 5.5 FL (6.5-10.1) L Neutrophils (%) (Auto) 80.8 % (45.0-75.0) H Lymphocytes (%) (Auto) 8.6 % (20.0-45.0) L Monocytes (%) (Auto) 9.7 % (1.0-10.0) Eosinophils (%) (Auto) 0.2 % (0.0-3.0) Basophils (%) (Auto) 0.7 % (0.0-2.0) Sodium Level 138 MMOL/L (136-145) Potassium Level 4.3 MMOL/L (3.5-5.1) Chloride Level 105 MMOL/L (98-107) Carbon Dioxide Level 31 MMOL/L (21-32) Anion Gap 2 mmol/L (5-15) L Blood Urea Nitrogen 13 mg/dL (7-18) Creatinine 0.5 MG/DL (0.55-1.30) L Estimat Glomerular Filtration Rate mL/min (>60) Glucose Level 125 MG/DL (74-106) H Calcium Level 7.8 MG/DL (8.5-10.1) L Phosphorus Level 1.7 MG/DL (2.5-4.9) L Magnesium Level 1.9 MG/DL (1.8-2.4) Total Bilirubin 0.3 MG/DL (0.2-1.0) Aspartate Amino Transf (AST/SGOT) 21 U/L (15-37) Alanine Aminotransferase (ALT/SGPT) 10 U/L (12-78) L Alkaline Phosphatase 103 U/L (46-116) Total Protein 4.5 G/DL (6.4-8.2) L Albumin 1.2 G/DL (3.4-5.0) L Globulin 3.3 g/dL Albumin/Globulin Ratio 0.4 (1.0-2.7) L Arterial Blood pH 7.570 (7.350-7.450) Arterial Blood Partial Pressure CO2 36.2 mmHg (35.0-45.0) Arterial Blood Partial Pressure O2 129.1 mmHg (75.0-100.0) H Arterial Blood HCO3 32.4 mmol/L (22.0-26.0) H Arterial Blood Oxygen Saturation 98.5 % (95-100) Arterial Blood Base Excess 9.7 (-2-2) *H Temo Test Positive Microbiology Date/Time Source Procedure Growth Status 04/07/18 11:38 Blood Blood Culture - Preliminary NO GROWTH AFTER 24 HOURS Resulted 04/07/18 11:30 Blood Blood Culture - Preliminary NO GROWTH AFTER 24 HOURS Resulted Objective HEAD AND NECK: No JVD. Tracheostomy is in LUNGS: Coarse rhonchi CARDIOVASCULAR: Regular S1 and S2 with no gallop. ABDOMEN: Status post colostomy. GT in place EXTREMITIES: No pitting edema Fredrick Burk MD Apr 09, 2018 12:07
--- NOTE | 2018-04-09 12:33 | Infectious Diseases Prog Note ---
Assessment/Plan Assessment/Plan Assessment: Sepsis, recurrent- r.o line infection (bacteremia vs fungemia);i mproving -04/07 Bcx NTD s/p L IJ removal UTI c/w bacteremia and prob early PNA -u/a wbc tntc, nit neg, luek +3; ucx >100k PsA (R cipro/levo, otherwise S), E. fecalis (S Amp, vanco); repeat u/a 03/29 wbc 30-40, nit eng, leuk +3; ucx yeast so far -03/06 Bcx 4/ P.mirabiis (R cipro, I Levo; otherwise S), 03/21 MRSE ( contaminant); 03/07 Neg; 03/29 Bcx NTD Probable Pneum : -03/31 CXR: Pulmonary edema. Marginal improvement since the last occasion -03/29 CXR: . Persistent prominent interstitial markings, suggesting pulmonary vascular congestion, interstitial edema, or interstitial pneumonitis, not significantly changed. Subsegmental atelectasis versus infiltrates in bilateral lung bases. Possible small pleural effusions. -CXR: Subtle patchy opacities in the right upper lung raising question for developing pneumonia. Clinical correlation/follow-up recommended. -influenza sc neg -sp cx MRSA, C. albicans (Colonizer); 03/29 sp cx MRSA, PSA (R Cefepime, Ceftazidie, Zosyn; S Cipro/levo, Genta, Imi)(prob colonizers) 03/19/17 - CT C/A/P - Bilateral basilar pneumonia versus atelectasis. Small to moderate left pleural effusion and a small right pleural effusion noted. 03/19/18 UCx - Yeast 03/23/18 CXR - B/L consolidation R>L 03/22/09 SpCx - MRSA, P.a. and NF Low grade fever, improving Leukocytosis -recurrent, improving -03/29 CDiff neg s/p trach 04/08 Pleural effusion SP Thoraco : no evidence of empyema FTT HTN Afib dysphagia HLD Dementia contractures Plan: -Continue Meropenem #7-10 to cover PsA given fever and leukocytosis -Add micafungin #3 to cover for fungemia empirically -04/07 SP IV Vancomycin # -04/01 SP flagyl # -03/31 SP Cefepime #27 -03/13 SP IV Vancomycin # SP Meropenem x1 -f/u Bcx x2 -Monitor CBC/CMP, temperatures -aspiration precautions -Consider addressing GOC ( ie DNR, comfort care) Subjective Allergies: Coded Allergies: No Known Allergies (Unverified , 03/06/18) Subjective Tm 100 s.p trach yesterday and transferred to ICU afterwards wbc increased Objective Vital Signs Last 24 Hour Vital Signs Date Time Temp Pulse Resp B/P (MAP) Pulse Ox O2 Delivery O2 Flow Rate FiO2 04/09/18 11:13 98 21 45 04/09/18 11:00 99 14 87/46 (60) 100 04/09/18 10:08 72 18 97 04/09/18 10:00 96 17 89/44 (59) 100 04/09/18 09:39 100 04/09/18 09:23 102 27 45 04/09/18 09:00 100 17 89/48 (62) 100 04/09/18 08:00 96 04/09/18 08:00 45 04/09/18 08:00 98.6 99 17 99/52 (68) 100 04/09/18 08:00 Mechanical Ventilator Mechanical Ventilator 04/09/18 07:55 97 14 100 Mechanical Ventilator 45 04/09/18 07:40 100 14 100 Mechanical Ventilator 45 04/09/18 07:29 100 14 45 04/09/18 07:00 97 17 84/51 (62) 100 04/09/18 06:00 99 17 90/49 (63) 100 04/09/18 05:20 107 25 45 04/09/18 05:00 108 25 97/57 (70) 100 04/09/18 04:00 100.0 103 18 88/44 (59) 99 04/09/18 04:00 45 04/09/18 04:00 Mechanical Ventilator Mechanical Ventilator 04/09/18 04:00 105 04/09/18 03:00 107 21 90/41 (57) 97 04/09/18 02:54 108 23 45 04/09/18 02:00 107 19 96/47 (63) 94 04/09/18 01:10 103 16 100 Mechanical Ventilator 45 04/09/18 01:00 102 16 45 04/09/18 01:00 102 16 100 Mechanical Ventilator 45 04/09/18 01:00 107 14 98/44 (62) 100 04/09/18 00:00 99.5 101 16 91/50 (64) 100 04/09/18 00:00 Mechanical Ventilator Mechanical Ventilator 04/09/18 00:00 101 04/09/18 00:00 45 04/08/18 23:00 101 17 94/51 (65) 100 04/08/18 22:39 102 16 45 04/08/18 22:00 104 16 94/42 (59) 100 04/08/18 21:00 102 20 111/66 (81) 100 04/08/18 20:57 103 15 45 04/08/18 20:28 107 21 100 Mechanical Ventilator 45 04/08/18 20:18 101 16 100 Mechanical Ventilator 45 04/08/18 20:00 99.3 106 22 93/46 (62) 99 04/08/18 20:00 Mechanical Ventilator Mechanical Ventilator 04/08/18 20:00 45 04/08/18 20:00 106 04/08/18 19:05 104 23 45 04/08/18 19:00 109 15 111/50 (70) 100 04/08/18 18:00 98 14 118/63 (81) 96 04/08/18 17:46 103 18 45 04/08/18 17:00 102 14 113/58 (76) 96 04/08/18 16:00 Trach Collar Trach Collar 04/08/18 16:00 97.6 95 14 121/67 (85) 97 04/08/18 16:00 93 04/08/18 15:36 102 14 45 04/08/18 15:30 102 15 121/67 (85) 96 04/08/18 15:00 94 14 119/66 (83) 94 04/08/18 14:15 92 14 123/68 (86) 95 04/08/18 14:00 Trach Collar Trach Collar 04/08/18 14:00 91 14 110/52 (71) 95 04/08/18 13:53 93 14 45 04/08/18 13:47 89 20 100 04/08/18 13:45 97.0 92 14 129/69 (89) 97 04/08/18 13:30 45 04/08/18 13:26 45 04/08/18 13:26 45 Height (Feet): 5 Height (Inches): 3.00 Weight (Pounds): 148 Objective General Appearance: no apparent distress, alert, GCS 15, non-toxic, other - frail, elderly, chronically ill, contracted, non-verbal, Chronically Ill HEENT: normocephalic, atraumatic, bilateral eye normal inspection, bilateral eye PERRL Respiratory: chest non-tender, lungs clear, normal breath sounds, no respiratory distress, no retraction, no accessory muscle use, speaking full sentences Cardiovascular : no edema, tachycardia, systolic murmur, irregularly irregular Gastrointestinal: normal bowel sounds, non tender, soft, non-distended, no guarding, no rebound, other - colostomy bag in place. Musculoskeletal: back normal, gait/station normal, normal range of motion, non- tender Neurologic: alert, other - non-focal. Contracted, non-verbal Skin: no rash, warm/dry, well hydrated, other - Multiple DU Microbiology Date/Time Source Procedure Growth Status 04/07/18 11:38 Blood Blood Culture - Preliminary NO GROWTH AFTER 24 HOURS Resulted 04/07/18 11:30 Blood Blood Culture - Preliminary NO GROWTH AFTER 24 HOURS Resulted Laboratory Tests Test 04/09/18 04:35 04/09/18 09:05 White Blood Count 14.3 K/UL (4.8-10.8) H Red Blood Count 2.76 M/UL (4.20-5.40) L Hemoglobin 8.5 G/DL (12.0-16.0) L Hematocrit 25.8 % (37.0-47.0) L Mean Corpuscular Volume 94 FL (80-99) Mean Corpuscular Hemoglobin 30.7 PG (27.0-31.0) Mean Corpuscular Hemoglobin Concent 32.9 G/DL (32.0-36.0) Red Cell Distribution Width 14.3 % (11.6-14.8) Platelet Count 303 K/UL (150-450) Mean Platelet Volume 5.5 FL (6.5-10.1) L Neutrophils (%) (Auto) 80.8 % (45.0-75.0) H Lymphocytes (%) (Auto) 8.6 % (20.0-45.0) L Monocytes (%) (Auto) 9.7 % (1.0-10.0) Eosinophils (%) (Auto) 0.2 % (0.0-3.0) Basophils (%) (Auto) 0.7 % (0.0-2.0) Sodium Level 138 MMOL/L (136-145) Potassium Level 4.3 MMOL/L (3.5-5.1) Chloride Level 105 MMOL/L (98-107) Carbon Dioxide Level 31 MMOL/L (21-32) Anion Gap 2 mmol/L (5-15) L Blood Urea Nitrogen 13 mg/dL (7-18) Creatinine 0.5 MG/DL (0.55-1.30) L Estimat Glomerular Filtration Rate mL/min (>60) Glucose Level 125 MG/DL (74-106) H Calcium Level 7.8 MG/DL (8.5-10.1) L Phosphorus Level 1.7 MG/DL (2.5-4.9) L Magnesium Level 1.9 MG/DL (1.8-2.4) Total Bilirubin 0.3 MG/DL (0.2-1.0) Aspartate Amino Transf (AST/SGOT) 21 U/L (15-37) Alanine Aminotransferase (ALT/SGPT) 10 U/L (12-78) L Alkaline Phosphatase 103 U/L (46-116) Total Protein 4.5 G/DL (6.4-8.2) L Albumin 1.2 G/DL (3.4-5.0) L Globulin 3.3 g/dL Albumin/Globulin Ratio 0.4 (1.0-2.7) L Arterial Blood pH 7.570 (7.350-7.450) Arterial Blood Partial Pressure CO2 36.2 mmHg (35.0-45.0) Arterial Blood Partial Pressure O2 129.1 mmHg (75.0-100.0) H Arterial Blood HCO3 32.4 mmol/L (22.0-26.0) H Arterial Blood Oxygen Saturation 98.5 % (95-100) Arterial Blood Base Excess 9.7 (-2-2) *H Temo Test Positive Current Medications Medications (Trade) Dose Ordered Sig/Cele Route PRN Reason Start Time Stop Time Status Last Admin Dose Admin Acetaminophen (Tylenol) 650 mg Q4H PRN PEG fever (temp>100.5F) 04/08/18 14:53 05/08/18 14:52 Acetylcysteine (Mucomyst) 200 mg Q6HRT HHN 04/08/18 19:00 05/03/18 12:59 04/09/18 07:47 Amiodarone HCl (Cordarone) 200 mg DAILY GT 04/09/18 09:00 05/04/18 08:59 04/09/18 09:39 Digoxin (Lanoxin) 0.125 mg DAILY GT 04/09/18 09:00 05/07/18 08:59 04/09/18 09:39 Ipratropium [place] (Atrovent) 500 mcg Q4H PRN HHN Shortness of Breath 04/08/18 14:54 04/11/18 14:53 04/09/18 07:47 Levalbuterol HCl (Xopenex) 0.63 mg Q6H PRN HHN Shortness of Breath 04/08/18 20:00 04/13/18 19:59 04/09/18 01:00 Meropenem 1 gm/ Sodium Chloride 55 ml @ 110 mls/hr Q12H IVPB 04/08/18 17:00 04/12/18 16:59 04/09/18 05:37 Metoclopramide HCl (Reglan) 10 mg EVERY 8 HOURS GT 04/08/18 22:00 05/02/18 13:59 04/09/18 05:38 Micafungin Sodium 100 mg/Sodium Chloride 110 ml @ 110 mls/hr Q24H IVPB 04/09/18 12:00 04/14/18 11:59 Pantoprazole (Protonix) 40 mg EVERY 12 HOURS IVP 04/08/18 21:00 04/26/18 20:59 04/09/18 09:39 Polyethylene Glycol (Miralax) 17 gm DAILYPRN PRN GT Constipation 04/08/18 14:54 05/08/18 14:53 Sussy Daniel M.D. Apr 09, 2018 12:32
--- NOTE | 2018-04-09 15:19 | General Progress Note ---
Progress Note Progress Note s/p trach doing well surgical site clean on vent wean as tolerated Derick Ramsay Apr 09, 2018 15:18
[2018-04-09] MEDS ORDERED: Tubing IV Secondary IV ONE (15:20)
--- NOTE | 2018-04-09 19:16 | Internal Med Progress Note ---
Subjective Date of Service: Apr 09, 2018 Physician Name Shankar Betts Attending Physician Davian Scott MD Current Medications Medications (Trade) Dose Ordered Sig/Cele Route PRN Reason Start Time Stop Time Status Last Admin Dose Admin Acetaminophen (Tylenol) 650 mg Q4H PRN PEG fever (temp>100.5F) 04/09/18 19:00 05/08/18 14:52 Acetylcysteine (Mucomyst) 200 mg Q6HRT HHN 04/09/18 19:00 05/03/18 12:59 Amiodarone HCl (Cordarone) 200 mg DAILY GT 04/10/18 09:00 05/04/18 08:59 Digoxin (Lanoxin) 0.125 mg DAILY GT 04/10/18 09:00 05/07/18 08:59 Ipratropium [place] (Atrovent) 500 mcg Q4H PRN HHN Shortness of Breath 04/09/18 19:00 04/11/18 14:53 Levalbuterol HCl (Xopenex) 0.63 mg Q6H PRN HHN Shortness of Breath 04/09/18 20:00 04/13/18 19:59 Meropenem 1 gm/ Sodium Chloride 55 ml @ 110 mls/hr Q12H IVPB 04/10/18 05:00 04/12/18 16:59 Metoclopramide HCl (Reglan) 10 mg EVERY 8 HOURS GT 04/09/18 22:00 05/02/18 13:59 Micafungin Sodium 100 mg/Sodium Chloride 110 ml @ 110 mls/hr Q24H IVPB 04/10/18 12:00 04/14/18 11:59 Pantoprazole (Protonix) 40 mg EVERY 12 HOURS IVP 04/09/18 21:00 04/26/18 20:59 Polyethylene Glycol (Miralax) 17 gm DAILYPRN PRN GT Constipation 04/10/18 15:00 05/08/18 14:53 Allergies: Coded Allergies: No Known Allergies (Unverified , 03/06/18) ROS Limited/Unobtainable: Yes Subjective 87 YO F admitted with hematuria and gen weakness. Now pyelonephritis respiratory distress and sepsis. Cover for Int Med-Dr Scott. ICU. S/P tracheostomy 04/08/18 Objective Last Vital Signs Date Time Temp Pulse Resp B/P (MAP) Pulse Ox O2 Delivery O2 Flow Rate FiO2 04/09/18 18:43 103 24 45 04/09/18 18:00 109/73 (85) 99 04/09/18 16:00 99.1 04/09/18 16:00 Mechanical Ventilator Mechanical Ventilator 04/08/18 12:00 15.0 Laboratory Tests Test 04/09/18 04:35 04/09/18 09:05 White Blood Count 14.3 K/UL (4.8-10.8) H Red Blood Count 2.76 M/UL (4.20-5.40) L Hemoglobin 8.5 G/DL (12.0-16.0) L Hematocrit 25.8 % (37.0-47.0) L Mean Corpuscular Volume 94 FL (80-99) Mean Corpuscular Hemoglobin 30.7 PG (27.0-31.0) Mean Corpuscular Hemoglobin Concent 32.9 G/DL (32.0-36.0) Red Cell Distribution Width 14.3 % (11.6-14.8) Platelet Count 303 K/UL (150-450) Mean Platelet Volume 5.5 FL (6.5-10.1) L Neutrophils (%) (Auto) 80.8 % (45.0-75.0) H Lymphocytes (%) (Auto) 8.6 % (20.0-45.0) L Monocytes (%) (Auto) 9.7 % (1.0-10.0) Eosinophils (%) (Auto) 0.2 % (0.0-3.0) Basophils (%) (Auto) 0.7 % (0.0-2.0) Sodium Level 138 MMOL/L (136-145) Potassium Level 4.3 MMOL/L (3.5-5.1) Chloride Level 105 MMOL/L (98-107) Carbon Dioxide Level 31 MMOL/L (21-32) Anion Gap 2 mmol/L (5-15) L Blood Urea Nitrogen 13 mg/dL (7-18) Creatinine 0.5 MG/DL (0.55-1.30) L Estimat Glomerular Filtration Rate mL/min (>60) Glucose Level 125 MG/DL (74-106) H Calcium Level 7.8 MG/DL (8.5-10.1) L Phosphorus Level 1.7 MG/DL (2.5-4.9) L Magnesium Level 1.9 MG/DL (1.8-2.4) Total Bilirubin 0.3 MG/DL (0.2-1.0) Aspartate Amino Transf (AST/SGOT) 21 U/L (15-37) Alanine Aminotransferase (ALT/SGPT) 10 U/L (12-78) L Alkaline Phosphatase 103 U/L (46-116) Total Protein 4.5 G/DL (6.4-8.2) L Albumin 1.2 G/DL (3.4-5.0) L Globulin 3.3 g/dL Albumin/Globulin Ratio 0.4 (1.0-2.7) L Arterial Blood pH 7.570 (7.350-7.450) Arterial Blood Partial Pressure CO2 36.2 mmHg (35.0-45.0) Arterial Blood Partial Pressure O2 129.1 mmHg (75.0-100.0) H Arterial Blood HCO3 32.4 mmol/L (22.0-26.0) H Arterial Blood Oxygen Saturation 98.5 % (95-100) Arterial Blood Base Excess 9.7 (-2-2) *H Temo Test Positive Microbiology Date/Time Source Procedure Growth Status 04/07/18 11:38 Blood Blood Culture - Preliminary NO GROWTH AFTER 24 HOURS Resulted 04/07/18 11:30 Blood Blood Culture - Preliminary NO GROWTH AFTER 24 HOURS Resulted Intake and Output 04/08/18 04/09/18 19:00 07:00 Intake Total 80 ml 270 ml Output Total 36 ml 650 ml Balance 44 ml -380 ml Intake Free Water 50 ml Tube Feeding 30 ml 270 ml Output Urine Total 1 ml 600 ml Stool Total 35 ml 50 ml Objective PHYSICAL EXAMINATION: GENERAL: The patient is a well-developed and well-nourished white female, in no apparent distress. HEENT: Eyes, pupils are equal and responsive to light and accommodation. Extraocular movements are intact. NECK: Supple without lymphadenopathy. CHEST: Trach; crackles and rales at bases; Decreased breath sounds at bilateral bases. Otherwise, clear to auscultation without wheezes or rales. CARDIOVASCULAR: Tachycardic. Regular rate and rhythm. S1, S2 are normal without murmurs, rubs, or gallops. ABDOMEN: Soft, nontender, and nondistended. Positive bowel sounds. No evidence of hepatosplenomegaly. Currently, no rebound or guarding noted. EXTREMITIES: Negative for clubbing, cyanosis, or edema. RECTAL/GENITAL: Deferred. NEUROLOGIC: Cranial nerves II through XII are grossly intact without focal deficits. Assessment/Plan Problem List: (1) Pyelonephritis Assessment & Plan: Pseudamonas and strep. See ID note-Continue meropenem and vanco (2) Sepsis (3) HTN (hypertension) Assessment & Plan: Currently hypotensive (4) Hypercholesteremia (5) Sacral decubitus ulcer, stage IV Assessment & Plan: See surgery note-dr Ramsay (6) Urinary tract infection Assessment & Plan: pseudamonas; continue cefepime per ID (7) Pneumonia Assessment & Plan: New RLL. Previously MRSA. Continue vanco and meropenem per ID (8) Atrial fibrillation with RVR Assessment & Plan: Continue digoxin and amiodrone per cardiology (9) Respiratory failure Assessment & Plan: S/P tracheostomy 04/08/18-see surgery and pulmonary note. Assessment/Plan prognosis guarded Shankar Betts MD Apr 09, 2018 19:16
[2018-04-09] MEDS: Acetaminophen 650mg/20.3ml PEG PRN (23:21)
[2018-04-10] MEDS: Ipratropium 0.02% Inh Soln 2.5ml UD HHN PRN ×3 (01:19→12:42)
[2018-04-10] MEDS: Acetylcysteine 20% Soln 4ml HHN SCH ×3 (01:19→12:43)
[2018-04-10 04:00] VITALS: BP 102/57
[2018-04-10] MEDS: Metoclopramide 10mg/10ml Liq GT SCH ×2 (05:23→13:25)
[2018-04-10] MEDS: Meropenem 1 GM in NS 55 ML IVPB SCH ×2 (05:23→16:28)
[2018-04-10 05:27] LABS: BASOPHILS % (AUTO) 0.7 % (0.0-2.0); EOSINOPHILS % (AUTO) 0.5 % (0.0-3.0); HEMATOCRIT 25.7 % (37.0-47.0); HEMOGLOBIN 8.3 G/DL (12.0-16.0); LYMPHOCYTES % (AUTO) 12.1 % (20.0-45.0); MEAN CORPUSCULAR VOLUME 94 FL (80-99); MONOCYTES % (AUTO) 9.6 % (1.0-10.0); NEUTROPHILS % (AUTO) 77.2 % (45.0-75.0); PLATELET COUNT 288 K/UL (150-450); RED BLOOD COUNT 2.74 M/UL (4.20-5.40); RED CELL DISTRIBUTION WIDTH 13.9 % (11.6-14.8); WHITE BLOOD COUNT 15.7 K/UL (4.8-10.8)
[2018-04-10 05:45] LABS: ALANINE AMINOTRANSFERASE 11 U/L (12-78); ALBUMIN 1.2 G/DL (3.4-5.0); ALBUMIN/GLOBULIN RATIO 0.3 (1.0-2.7); ALKALINE PHOSPHATASE 110 U/L (46-116); ANION GAP 3 mmol/L (5-15); ASPARTATE AMINO TRANSFERASE 21 U/L (15-37); BILIRUBIN,TOTAL 0.3 MG/DL (0.2-1.0); BLOOD UREA NITROGEN 14 mg/dL (7-18); CALCIUM 7.5 MG/DL (8.5-10.1); CARBON DIOXIDE 32 MMOL/L (21-32); CHLORIDE 104 MMOL/L (98-107); CREATININE 0.5 MG/DL (0.55-1.30); POTASSIUM 4.2 MMOL/L (3.5-5.1); SODIUM 139 MMOL/L (136-145)
[2018-04-10] MEDS: Levalbuterol Inh UD 1.25mg/0.5ml HHN PRN ×2 (07:21→12:43)
[2018-04-10 08:00] VITALS: BP 99/56
[2018-04-10] MEDS: Pantoprazole Inj IVP SCH (08:53)
[2018-04-10] MEDS ORDERED: Digoxin 0.125mg tab GT SCH (09:00)
[2018-04-10] MEDS ORDERED: Amiodarone 200mg tab GT SCH (09:00)
--- NOTE | 2018-04-10 11:02 | GI Progress Note ---
Assessment/Plan Problems: (1) Encounter for PEG (percutaneous endoscopic gastrostomy) ICD Codes: Z43.1 - Encounter for attention to gastrostomy SNOMED: 108512469, 319161006 (2) At high risk for aspiration ICD Codes: Z91.89 - Other specified personal risk factors, not elsewhere classified SNOMED: 255878439 (3) Protein-calorie malnutrition, severe ICD Codes: E43 - Unspecified severe protein-calorie malnutrition SNOMED: 959246943 (4) Dysphasia ICD Codes: R47.02 - Dysphasia SNOMED: 75881986 Status: unchanged Status Narrative Discussed with Dr. Velez Assessment/Plan s/p tracheostomy s/p GT placement GTF and care, reported patient is not tolerating her G-tube feedings Increase Reglan to 10 mg ATC, restart feedings at low rate then advance to goal fu labs Follow-up pulmonary recommendations The patient was seen and examined at bedside and all new and available data was reviewed in the patients chart. I agree with the above findings, impression and plan. (Patient seen earlier today. Signature stamp does not reflect patient encounter time.). - Ernesto Velez MD Subjective Subjective Limited Objective Last 24 Hour Vital Signs Date Time Temp Pulse Resp B/P (MAP) Pulse Ox O2 Delivery O2 Flow Rate FiO2 04/10/18 10:39 91 21 45 04/10/18 09:20 89 23 45 04/10/18 08:53 86 04/10/18 08:00 87 04/10/18 08:00 45 04/10/18 08:00 98.8 86 16 99/56 (70) 100 04/10/18 08:00 Mechanical Ventilator Mechanical Ventilator 04/10/18 07:31 88 14 100 Mechanical Ventilator 45 04/10/18 07:31 88 14 45 04/10/18 07:25 88 14 95 Mechanical Ventilator 45 04/10/18 05:08 89 18 45 04/10/18 04:00 Mechanical Ventilator Mechanical Ventilator 04/10/18 04:00 98.1 96 14 102/57 (72) 99 04/10/18 04:00 45 04/10/18 04:00 90 04/10/18 02:42 91 17 45 04/10/18 01:28 93 14 100 Mechanical Ventilator 45 04/10/18 01:20 95 14 100 Mechanical Ventilator 45 04/10/18 01:20 94 14 45 04/10/18 00:16 99.1 04/10/18 00:00 99 04/10/18 00:00 Mechanical Ventilator Mechanical Ventilator 04/10/18 00:00 45 04/09/18 23:19 99.7 103 14 112/66 (81) 99 04/09/18 22:57 98 20 45 04/09/18 21:10 102 22 45 04/09/18 20:00 99 04/09/18 20:00 99.0 108 14 128/78 (95) 99 04/09/18 20:00 Mechanical Ventilator Mechanical Ventilator 04/09/18 20:00 45 04/09/18 19:39 101 16 100 Mechanical Ventilator 45 04/09/18 19:22 104 14 100 Mechanical Ventilator 45 04/09/18 18:43 103 24 45 04/09/18 18:00 107 20 109/73 (85) 99 04/09/18 17:00 99 20 89/44 (59) 98 04/09/18 16:42 99 26 45 04/09/18 16:00 99.1 96 15 91/41 (58) 100 04/09/18 16:00 96 04/09/18 16:00 45 04/09/18 16:00 Mechanical Ventilator Mechanical Ventilator 04/09/18 15:12 96 15 45 04/09/18 15:00 97 16 94/46 (62) 100 04/09/18 14:00 99 14 89/55 (66) 100 04/09/18 13:55 110 14 100 Mechanical Ventilator 45 04/09/18 13:45 106 14 100 Mechanical Ventilator 45 04/09/18 13:45 98 18 45 04/09/18 13:00 95 20 88/50 (63) 100 04/09/18 12:00 95 04/09/18 12:00 Mechanical Ventilator Mechanical Ventilator 04/09/18 12:00 45 04/09/18 12:00 98.9 94 17 95/45 (62) 100 04/09/18 11:13 98 21 45 Intake and Output 04/09/18 04/10/18 19:00 07:00 Intake Total 860 ml 660 ml Output Total 510 ml 400 ml Balance 350 ml 260 ml Intake Free Water 200 ml IV Total 165 ml Tube Feeding 495 ml 540 ml Other 120 ml Output Urine Total 450 ml 250 ml Stool Total 60 ml 150 ml Laboratory Tests Test 04/10/18 04:05 White Blood Count 15.7 K/UL (4.8-10.8) H Red Blood Count 2.74 M/UL (4.20-5.40) L Hemoglobin 8.3 G/DL (12.0-16.0) L Hematocrit 25.7 % (37.0-47.0) L Mean Corpuscular Volume 94 FL (80-99) Mean Corpuscular Hemoglobin 30.5 PG (27.0-31.0) Mean Corpuscular Hemoglobin Concent 32.5 G/DL (32.0-36.0) Red Cell Distribution Width 13.9 % (11.6-14.8) Platelet Count 288 K/UL (150-450) Mean Platelet Volume 5.5 FL (6.5-10.1) L Neutrophils (%) (Auto) 77.2 % (45.0-75.0) H Lymphocytes (%) (Auto) 12.1 % (20.0-45.0) L Monocytes (%) (Auto) 9.6 % (1.0-10.0) Eosinophils (%) (Auto) 0.5 % (0.0-3.0) Basophils (%) (Auto) 0.7 % (0.0-2.0) Sodium Level 139 MMOL/L (136-145) Potassium Level 4.2 MMOL/L (3.5-5.1) Chloride Level 104 MMOL/L (98-107) Carbon Dioxide Level 32 MMOL/L (21-32) Anion Gap 3 mmol/L (5-15) L Blood Urea Nitrogen 14 mg/dL (7-18) Creatinine 0.5 MG/DL (0.55-1.30) L Estimat Glomerular Filtration Rate mL/min (>60) Glucose Level 142 MG/DL (74-106) H Calcium Level 7.5 MG/DL (8.5-10.1) L Total Bilirubin 0.3 MG/DL (0.2-1.0) Aspartate Amino Transf (AST/SGOT) 21 U/L (15-37) Alanine Aminotransferase (ALT/SGPT) 11 U/L (12-78) L Alkaline Phosphatase 110 U/L (46-116) Pro-B-Type Natriuretic Peptide 1939 pg/mL (0-125) H Total Protein 4.7 G/DL (6.4-8.2) L Albumin 1.2 G/DL (3.4-5.0) L Globulin 3.5 g/dL Albumin/Globulin Ratio 0.3 (1.0-2.7) L Height (Feet): 5 Height (Inches): 3.00 Weight (Pounds): 150 General Appearance: no apparent distress Cardiovascular: normal rate Respiratory/Chest: other - Tracheostomy Abdominal Exam: GT site - Clean dry and intact Thaddeus Galeana NP Apr 10, 2018 11:02
[2018-04-10] MEDS ORDERED: PACERONE200 MG GT (11:33)
[2018-04-10] MEDS ORDERED: MERREM1 GM IV (11:35)
[2018-04-10] MEDS ORDERED: MYCAMINE100 M1 IVPB (11:36)
--- NOTE | 2018-04-10 11:39 | Pulmonolgy Critical Care Note ---
Critical Care - Asmt/Plan Problems: (1) Respiratory distress (2) Pleural effusion (3) Pneumonia (4) Atrial fibrillation with RVR (5) Sacral decubitus ulcer, stage IV (6) Protein-calorie malnutrition, severe (7) At high risk for aspiration Respiratory: adjust tidal volume, adjust FIO2, CXR Cardiac: continue to monitor HR/BP Renal: F/U I&O, check electrolytes Infectious Disease: check cultures, continue antibiotics Gastrointestinal: continue feedings/current rate Endocrine: monitor blood sugar, check HgA1C Hematologic: monitor H/H, transfuse if hgb<8.5 Neurologic: PRN Morphine Prophylaxis: Protonix Notes Reviewed: family assistant, 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 with: nurses, consultants, senior case managerdaycare manager - Objective Last 24 Hour Vital Signs Date Time Temp Pulse Resp B/P (MAP) Pulse Ox O2 Delivery O2 Flow Rate FiO2 04/10/18 10:39 91 21 45 04/10/18 09:20 89 23 45 04/10/18 08:53 86 04/10/18 08:00 87 04/10/18 08:00 45 04/10/18 08:00 98.8 86 16 99/56 (70) 100 04/10/18 08:00 Mechanical Ventilator Mechanical Ventilator 04/10/18 07:31 88 14 100 Mechanical Ventilator 45 04/10/18 07:31 88 14 45 04/10/18 07:25 88 14 95 Mechanical Ventilator 45 04/10/18 05:08 89 18 45 04/10/18 04:00 Mechanical Ventilator Mechanical Ventilator 04/10/18 04:00 98.1 96 14 102/57 (72) 99 04/10/18 04:00 45 04/10/18 04:00 90 04/10/18 02:42 91 17 45 04/10/18 01:28 93 14 100 Mechanical Ventilator 45 04/10/18 01:20 95 14 100 Mechanical Ventilator 45 04/10/18 01:20 94 14 45 04/10/18 00:16 99.1 04/10/18 00:00 99 04/10/18 00:00 Mechanical Ventilator Mechanical Ventilator 04/10/18 00:00 45 04/09/18 23:19 99.7 103 14 112/66 (81) 99 04/09/18 22:57 98 20 45 04/09/18 21:10 102 22 45 04/09/18 20:00 99 04/09/18 20:00 99.0 108 14 128/78 (95) 99 04/09/18 20:00 Mechanical Ventilator Mechanical Ventilator 04/09/18 20:00 45 04/09/18 19:39 101 16 100 Mechanical Ventilator 45 04/09/18 19:22 104 14 100 Mechanical Ventilator 45 04/09/18 18:43 103 24 45 04/09/18 18:00 107 20 109/73 (85) 99 04/09/18 17:00 99 20 89/44 (59) 98 04/09/18 16:42 99 26 45 04/09/18 16:00 99.1 96 15 91/41 (58) 100 04/09/18 16:00 96 04/09/18 16:00 45 04/09/18 16:00 Mechanical Ventilator Mechanical Ventilator 04/09/18 15:12 96 15 45 04/09/18 15:00 97 16 94/46 (62) 100 04/09/18 14:00 99 14 89/55 (66) 100 04/09/18 13:55 110 14 100 Mechanical Ventilator 45 04/09/18 13:45 106 14 100 Mechanical Ventilator 45 04/09/18 13:45 98 18 45 04/09/18 13:00 95 20 88/50 (63) 100 04/09/18 12:00 95 04/09/18 12:00 Mechanical Ventilator Mechanical Ventilator 04/09/18 12:00 45 04/09/18 12:00 98.9 94 17 95/45 (62) 100 Status: somnolent Condition: critical Neck: full ROM Lungs: rales, rhonchi Heart: HR/BP stable Abdomen: soft, feeding tube Extremities: no C/C/E Decubiti: location Accucheck: 111 Critical Care - Subjective ROS Limited/Unobtainable: Yes Condition: critical FI02: 45 Vent Support Breath Rate: 14 Vent Support Mode: AC Vent Tidal Volume: 400 Sputum Amount: Small PEEP: 0.0 PIP: 15 Tube Feeding Amount: 45 I&O: Intake and Output 04/09/18 04/10/18 19:00 07:00 Intake Total 860 ml 660 ml Output Total 510 ml 400 ml Balance 350 ml 260 ml Intake Free Water 200 ml IV Total 165 ml Tube Feeding 495 ml 540 ml Other 120 ml Output Urine Total 450 ml 250 ml Stool Total 60 ml 150 ml CXR: no change Labs: Laboratory Tests Test 04/10/18 04:05 White Blood Count 15.7 K/UL (4.8-10.8) H Red Blood Count 2.74 M/UL (4.20-5.40) L Hemoglobin 8.3 G/DL (12.0-16.0) L Hematocrit 25.7 % (37.0-47.0) L Mean Corpuscular Volume 94 FL (80-99) Mean Corpuscular Hemoglobin 30.5 PG (27.0-31.0) Mean Corpuscular Hemoglobin Concent 32.5 G/DL (32.0-36.0) Red Cell Distribution Width 13.9 % (11.6-14.8) Platelet Count 288 K/UL (150-450) Mean Platelet Volume 5.5 FL (6.5-10.1) L Neutrophils (%) (Auto) 77.2 % (45.0-75.0) H Lymphocytes (%) (Auto) 12.1 % (20.0-45.0) L Monocytes (%) (Auto) 9.6 % (1.0-10.0) Eosinophils (%) (Auto) 0.5 % (0.0-3.0) Basophils (%) (Auto) 0.7 % (0.0-2.0) Sodium Level 139 MMOL/L (136-145) Potassium Level 4.2 MMOL/L (3.5-5.1) Chloride Level 104 MMOL/L (98-107) Carbon Dioxide Level 32 MMOL/L (21-32) Anion Gap 3 mmol/L (5-15) L Blood Urea Nitrogen 14 mg/dL (7-18) Creatinine 0.5 MG/DL (0.55-1.30) L Estimat Glomerular Filtration Rate mL/min (>60) Glucose Level 142 MG/DL (74-106) H Calcium Level 7.5 MG/DL (8.5-10.1) L Total Bilirubin 0.3 MG/DL (0.2-1.0) Aspartate Amino Transf (AST/SGOT) 21 U/L (15-37) Alanine Aminotransferase (ALT/SGPT) 11 U/L (12-78) L Alkaline Phosphatase 110 U/L (46-116) Pro-B-Type Natriuretic Peptide 1939 pg/mL (0-125) H Total Protein 4.7 G/DL (6.4-8.2) L Albumin 1.2 G/DL (3.4-5.0) L Globulin 3.5 g/dL Albumin/Globulin Ratio 0.3 (1.0-2.7) L Rishi Gutierrez MD Apr 10, 2018 11:39
--- NOTE | 2018-04-10 11:47 | Diagnostic Imaging Report ---
Indication: Dyspnea Technique: One view of the chest Comparison: 04/09/2018 Findings: There is increasing pleural fluid on the left, now large. There is probably persistent interstitial congestive change on the left. Right lung and pleural space largely clear. Tracheostomy remains. Impression: Increasing large left-sided pleural effusion, over one day
[2018-04-10 12:00] VITALS: BP 116/67
[2018-04-10] MEDS ORDERED: Micafungin 100 MG in NS 110 ML IVPB SCH (12:00)
--- NOTE | 2018-04-10 12:04 | Infectious Diseases Prog Note ---
Assessment/Plan Assessment/Plan Assessment: Sepsis, recurrent- r.o line infection (bacteremia vs fungemia);i mproving -04/07 Bcx NTD s/p L IJ removal UTI c/w bacteremia and prob early PNA -u/a wbc tntc, nit neg, luek +3; ucx >100k PsA (R cipro/levo, otherwise S), E. fecalis (S Amp, vanco); repeat u/a 03/29 wbc 30-40, nit eng, leuk +3; ucx yeast so far -03/06 Bcx 4/ P.mirabiis (R cipro, I Levo; otherwise S), 03/21 MRSE ( contaminant); 03/07 Neg; 03/29 Bcx NTD Probable Pneum : -03/31 CXR: Pulmonary edema. Marginal improvement since the last occasion -03/29 CXR: . Persistent prominent interstitial markings, suggesting pulmonary vascular congestion, interstitial edema, or interstitial pneumonitis, not significantly changed. Subsegmental atelectasis versus infiltrates in bilateral lung bases. Possible small pleural effusions. -CXR: Subtle patchy opacities in the right upper lung raising question for developing pneumonia. Clinical correlation/follow-up recommended. -influenza sc neg -sp cx MRSA, C. albicans (Colonizer); 03/29 sp cx MRSA, PSA (R Cefepime, Ceftazidie, Zosyn; S Cipro/levo, Genta, Imi)(prob colonizers) 03/19/17 - CT C/A/P - Bilateral basilar pneumonia versus atelectasis. Small to moderate left pleural effusion and a small right pleural effusion noted. 03/19/18 UCx - Yeast 03/23/18 CXR - B/L consolidation R>L 03/22/09 SpCx - MRSA, P.a. and NF Low grade fever, improving Leukocytosis -recurrent, improving -03/29 CDiff neg s/p trach 04/08 Pleural effusion SP Thoraco : no evidence of empyema FTT HTN Afib dysphagia HLD Dementia contractures Plan: -Continue Meropenem #10/25 to cover PsA given fever and leukocytosis -Add micafungin #4 to cover for fungemia empirically -04/07 SP IV Vancomycin # -04/01 SP flagyl # -03/31 SP Cefepime #27 -03/13 SP IV Vancomycin # SP Meropenem x1 -f/u Bcx x2 -Monitor CBC/CMP, temperatures -aspiration precautions -Consider addressing GOC ( ie DNR, comfort care) Subjective Allergies: Coded Allergies: No Known Allergies (Unverified , 03/06/18) Subjective afebrile in >24hrs transferrd out of ICU to [facility] wbc increased Objective Vital Signs Last 24 Hour Vital Signs Date Time Temp Pulse Resp B/P (MAP) Pulse Ox O2 Delivery O2 Flow Rate FiO2 04/10/18 10:39 91 21 45 04/10/18 09:20 89 23 45 04/10/18 08:53 86 04/10/18 08:00 87 04/10/18 08:00 45 04/10/18 08:00 98.8 86 16 99/56 (70) 100 04/10/18 08:00 Mechanical Ventilator Mechanical Ventilator 04/10/18 07:31 88 14 100 Mechanical Ventilator 45 04/10/18 07:31 88 14 45 04/10/18 07:25 88 14 95 Mechanical Ventilator 45 04/10/18 05:08 89 18 45 04/10/18 04:00 Mechanical Ventilator Mechanical Ventilator 04/10/18 04:00 98.1 96 14 102/57 (72) 99 04/10/18 04:00 45 04/10/18 04:00 90 04/10/18 02:42 91 17 45 04/10/18 01:28 93 14 100 Mechanical Ventilator 45 04/10/18 01:20 95 14 100 Mechanical Ventilator 45 04/10/18 01:20 94 14 45 04/10/18 00:16 99.1 04/10/18 00:00 99 04/10/18 00:00 Mechanical Ventilator Mechanical Ventilator 04/10/18 00:00 45 04/09/18 23:19 99.7 103 14 112/66 (81) 99 04/09/18 22:57 98 20 45 04/09/18 21:10 102 22 45 04/09/18 20:00 99 04/09/18 20:00 99.0 108 14 128/78 (95) 99 04/09/18 20:00 Mechanical Ventilator Mechanical Ventilator 04/09/18 20:00 45 04/09/18 19:39 101 16 100 Mechanical Ventilator 45 04/09/18 19:22 104 14 100 Mechanical Ventilator 45 04/09/18 18:43 103 24 45 04/09/18 18:00 107 20 109/73 (85) 99 04/09/18 17:00 99 20 89/44 (59) 98 04/09/18 16:42 99 26 45 04/09/18 16:00 99.1 96 15 91/41 (58) 100 04/09/18 16:00 96 04/09/18 16:00 45 04/09/18 16:00 Mechanical Ventilator Mechanical Ventilator 04/09/18 15:12 96 15 45 04/09/18 15:00 97 16 94/46 (62) 100 04/09/18 14:00 99 14 89/55 (66) 100 04/09/18 13:55 110 14 100 Mechanical Ventilator 45 04/09/18 13:45 106 14 100 Mechanical Ventilator 45 04/09/18 13:45 98 18 45 04/09/18 13:00 95 20 88/50 (63) 100 Height (Feet): 5 Height (Inches): 3.00 Weight (Pounds): 150 Objective General Appearance: no apparent distress, alert, GCS 15, non-toxic, other - frail, elderly, chronically ill, contracted, non-verbal, Chronically Ill HEENT: normocephalic, atraumatic, bilateral eye normal inspection, bilateral eye PERRL Respiratory: chest non-tender, lungs clear, normal breath sounds, no respiratory distress, no retraction, no accessory muscle use, speaking full sentences Cardiovascular : no edema, tachycardia, systolic murmur, irregularly irregular Gastrointestinal: normal bowel sounds, non tender, soft, non-distended, no guarding, no rebound, other - colostomy bag in place. Musculoskeletal: back normal, gait/station normal, normal range of motion, non- tender Neurologic: alert, other - non-focal. Contracted, non-verbal Skin: no rash, warm/dry, well hydrated, other - Multiple DU Laboratory Tests Test 04/10/18 04:05 White Blood Count 15.7 K/UL (4.8-10.8) H Red Blood Count 2.74 M/UL (4.20-5.40) L Hemoglobin 8.3 G/DL (12.0-16.0) L Hematocrit 25.7 % (37.0-47.0) L Mean Corpuscular Volume 94 FL (80-99) Mean Corpuscular Hemoglobin 30.5 PG (27.0-31.0) Mean Corpuscular Hemoglobin Concent 32.5 G/DL (32.0-36.0) Red Cell Distribution Width 13.9 % (11.6-14.8) Platelet Count 288 K/UL (150-450) Mean Platelet Volume 5.5 FL (6.5-10.1) L Neutrophils (%) (Auto) 77.2 % (45.0-75.0) H Lymphocytes (%) (Auto) 12.1 % (20.0-45.0) L Monocytes (%) (Auto) 9.6 % (1.0-10.0) Eosinophils (%) (Auto) 0.5 % (0.0-3.0) Basophils (%) (Auto) 0.7 % (0.0-2.0) Sodium Level 139 MMOL/L (136-145) Potassium Level 4.2 MMOL/L (3.5-5.1) Chloride Level 104 MMOL/L (98-107) Carbon Dioxide Level 32 MMOL/L (21-32) Anion Gap 3 mmol/L (5-15) L Blood Urea Nitrogen 14 mg/dL (7-18) Creatinine 0.5 MG/DL (0.55-1.30) L Estimat Glomerular Filtration Rate mL/min (>60) Glucose Level 142 MG/DL (74-106) H Calcium Level 7.5 MG/DL (8.5-10.1) L Total Bilirubin 0.3 MG/DL (0.2-1.0) Aspartate Amino Transf (AST/SGOT) 21 U/L (15-37) Alanine Aminotransferase (ALT/SGPT) 11 U/L (12-78) L Alkaline Phosphatase 110 U/L (46-116) Pro-B-Type Natriuretic Peptide 1939 pg/mL (0-125) H Total Protein 4.7 G/DL (6.4-8.2) L Albumin 1.2 G/DL (3.4-5.0) L Globulin 3.5 g/dL Albumin/Globulin Ratio 0.3 (1.0-2.7) L Current Medications Medications (Trade) Dose Ordered Sig/Cele Route PRN Reason Start Time Stop Time Status Last Admin Dose Admin Acetaminophen (Tylenol) 650 mg Q4H PRN PEG fever (temp>100.5F) 04/09/18 19:00 05/08/18 14:52 04/09/18 23:21 Acetylcysteine (Mucomyst) 200 mg Q6HRT HHN 04/09/18 19:00 05/03/18 12:59 04/10/18 07:22 Amiodarone HCl (Cordarone) 200 mg DAILY GT 04/10/18 09:00 05/04/18 08:59 04/10/18 08:53 Digoxin (Lanoxin) 0.125 mg DAILY GT 04/10/18 09:00 05/07/18 08:59 04/10/18 08:53 Ipratropium [place] (Atrovent) 500 mcg Q4H PRN HHN Shortness of Breath 04/09/18 19:00 04/11/18 14:53 04/10/18 07:21 Levalbuterol HCl (Xopenex) 0.63 mg Q6H PRN HHN Shortness of Breath 04/09/18 20:00 04/13/18 19:59 04/10/18 07:21 Meropenem 1 gm/ Sodium Chloride 55 ml @ 110 mls/hr Q12H IVPB 04/10/18 05:00 04/12/18 16:59 04/10/18 05:23 Metoclopramide HCl (Reglan) 10 mg EVERY 8 HOURS GT 04/09/18 22:00 05/02/18 13:59 04/10/18 05:23 Micafungin Sodium 100 mg/Sodium Chloride 110 ml @ 110 mls/hr Q24H IVPB 04/10/18 12:00 04/14/18 11:59 04/10/18 11:21 Pantoprazole (Protonix) 40 mg EVERY 12 HOURS IVP 04/09/18 21:00 04/26/18 20:59 04/10/18 08:53 Polyethylene Glycol (Miralax) 17 gm DAILYPRN PRN GT Constipation 04/10/18 15:00 05/08/18 14:53 Sussy Daniel M.D. Apr 10, 2018 12:04
[2018-04-10] MEDS ORDERED: Miralax 17gm pkt GT PRN (15:00)
--- NOTE | 2018-04-10 15:09 | Cardiac Electrophysiology PN ---
Assessment/Plan Status Narrative Technically difficult study due to patient was contracted. Study quality precludes accurate assessment of regional wall motion. Normal left ventricular chamber size, systolic function and wall motion. Left ventricular ejection fraction estimated to be 60-65 %. Mild left ventricular hypertrophy. Small circumferential pericardial effusion. Mild left atrial enlargement. Right cardiac chamber sizes are within normal limits. Aortic valve calcification with decreased cusp excursion c/w aortic stenosis. Mildly thickened mitral valve leaflets with normal excursion. Moderate mitral annulus and aortic root calcification. Normal pulmonic valve structure. Normal tricuspid valve structure. Subcostal views not obtainable due to G tube. Assessment/Plan 1. Paroxysmal atrial fibrillation with rapid ventricular response. Off Cardizem drip Echo EF 65%. On Digoxin 0.125 and Amio 200 daily In SR with PACs 2. Urosepsis. On IV antibiotic per ID. 3. Hypotension, off pressors and on IV fluid. 4. Sacral decubitus ulcer. 5. Dementia. 6. Dysphagia. S/P G-tube placement 03/21/17 7. Pleural effusion. S/P 200 cc L Thoracentesis 8. Respiratory failure. S/P Tracheostomy on the vent DW RN. DC to [facility] today Subjective Subjective In SR with PACs on Amiodarone via GT On vent via Trach Objective Last 24 Hour Vital Signs Date Time Temp Pulse Resp B/P (MAP) Pulse Ox O2 Delivery O2 Flow Rate FiO2 04/10/18 14:53 96 21 45 04/10/18 12:57 98 26 45 04/10/18 12:56 99 24 100 Mechanical Ventilator 45 04/10/18 12:43 98 26 96 Mechanical Ventilator 45 04/10/18 12:00 96 04/10/18 12:00 97.9 98 23 116/67 (83) 99 04/10/18 12:00 Mechanical Ventilator Mechanical Ventilator 04/10/18 12:00 45 04/10/18 10:39 91 21 45 04/10/18 09:20 89 23 45 04/10/18 08:53 86 04/10/18 08:00 87 04/10/18 08:00 45 04/10/18 08:00 98.8 86 16 99/56 (70) 100 04/10/18 08:00 Mechanical Ventilator Mechanical Ventilator 04/10/18 07:31 88 14 100 Mechanical Ventilator 45 04/10/18 07:31 88 14 45 04/10/18 07:25 88 14 95 Mechanical Ventilator 45 04/10/18 05:08 89 18 45 04/10/18 04:00 Mechanical Ventilator Mechanical Ventilator 04/10/18 04:00 98.1 96 14 102/57 (72) 99 04/10/18 04:00 45 04/10/18 04:00 90 04/10/18 02:42 91 17 45 04/10/18 01:28 93 14 100 Mechanical Ventilator 45 04/10/18 01:20 95 14 100 Mechanical Ventilator 45 04/10/18 01:20 94 14 45 04/10/18 00:16 99.1 04/10/18 00:00 99 04/10/18 00:00 Mechanical Ventilator Mechanical Ventilator 04/10/18 00:00 45 04/09/18 23:19 99.7 103 14 112/66 (81) 99 04/09/18 22:57 98 20 45 04/09/18 21:10 102 22 45 04/09/18 20:00 99 04/09/18 20:00 99.0 108 14 128/78 (95) 99 04/09/18 20:00 Mechanical Ventilator Mechanical Ventilator 04/09/18 20:00 45 04/09/18 19:39 101 16 100 Mechanical Ventilator 45 04/09/18 19:22 104 14 100 Mechanical Ventilator 45 04/09/18 18:43 103 24 45 04/09/18 18:00 107 20 109/73 (85) 99 04/09/18 17:00 99 20 89/44 (59) 98 04/09/18 16:42 99 26 45 04/09/18 16:00 99.1 96 15 91/41 (58) 100 04/09/18 16:00 96 04/09/18 16:00 45 04/09/18 16:00 Mechanical Ventilator Mechanical Ventilator 04/09/18 15:12 96 15 45 Intake and Output 04/09/18 04/10/18 19:00 07:00 Intake Total 860 ml 660 ml Output Total 510 ml 400 ml Balance 350 ml 260 ml Intake Free Water 200 ml IV Total 165 ml Tube Feeding 495 ml 540 ml Other 120 ml Output Urine Total 450 ml 250 ml Stool Total 60 ml 150 ml Laboratory Tests Test 04/10/18 04:05 White Blood Count 15.7 K/UL (4.8-10.8) H Red Blood Count 2.74 M/UL (4.20-5.40) L Hemoglobin 8.3 G/DL (12.0-16.0) L Hematocrit 25.7 % (37.0-47.0) L Mean Corpuscular Volume 94 FL (80-99) Mean Corpuscular Hemoglobin 30.5 PG (27.0-31.0) Mean Corpuscular Hemoglobin Concent 32.5 G/DL (32.0-36.0) Red Cell Distribution Width 13.9 % (11.6-14.8) Platelet Count 288 K/UL (150-450) Mean Platelet Volume 5.5 FL (6.5-10.1) L Neutrophils (%) (Auto) 77.2 % (45.0-75.0) H Lymphocytes (%) (Auto) 12.1 % (20.0-45.0) L Monocytes (%) (Auto) 9.6 % (1.0-10.0) Eosinophils (%) (Auto) 0.5 % (0.0-3.0) Basophils (%) (Auto) 0.7 % (0.0-2.0) Sodium Level 139 MMOL/L (136-145) Potassium Level 4.2 MMOL/L (3.5-5.1) Chloride Level 104 MMOL/L (98-107) Carbon Dioxide Level 32 MMOL/L (21-32) Anion Gap 3 mmol/L (5-15) L Blood Urea Nitrogen 14 mg/dL (7-18) Creatinine 0.5 MG/DL (0.55-1.30) L Estimat Glomerular Filtration Rate mL/min (>60) Glucose Level 142 MG/DL (74-106) H Calcium Level 7.5 MG/DL (8.5-10.1) L Total Bilirubin 0.3 MG/DL (0.2-1.0) Aspartate Amino Transf (AST/SGOT) 21 U/L (15-37) Alanine Aminotransferase (ALT/SGPT) 11 U/L (12-78) L Alkaline Phosphatase 110 U/L (46-116) Pro-B-Type Natriuretic Peptide 1939 pg/mL (0-125) H Total Protein 4.7 G/DL (6.4-8.2) L Albumin 1.2 G/DL (3.4-5.0) L Globulin 3.5 g/dL Albumin/Globulin Ratio 0.3 (1.0-2.7) L Objective HEAD AND NECK: No JVD. Tracheostomy intact LUNGS: Coarse rhonchi CARDIOVASCULAR: Regular S1 and S2 with no gallop. ABDOMEN: Status post colostomy. GT in place EXTREMITIES: No pitting edema Fredrick Burk MD Apr 10, 2018 15:09
[2018-04-10 16:00] VITALS: BP 102/63
--- NOTE | 2018-04-10 16:10 | Internal Med Progress Note ---
Subjective Date of Service: Apr 10, 2018 Physician Name Shankar Betts Attending Physician Davian Scott MD Current Medications Medications (Trade) Dose Ordered Sig/Cele Route PRN Reason Start Time Stop Time Status Last Admin Dose Admin Acetaminophen (Tylenol) 650 mg Q4H PRN PEG fever (temp>100.5F) 04/09/18 19:00 05/08/18 14:52 04/09/18 23:21 Acetylcysteine (Mucomyst) 200 mg Q6HRT HHN 04/09/18 19:00 05/03/18 12:59 04/10/18 12:43 Amiodarone HCl (Cordarone) 200 mg DAILY GT 04/10/18 09:00 05/04/18 08:59 04/10/18 08:53 Digoxin (Lanoxin) 0.125 mg DAILY GT 04/10/18 09:00 05/07/18 08:59 04/10/18 08:53 Ipratropium Reeds (Atrovent) 500 mcg Q4H PRN HHN Shortness of Breath 04/09/18 19:00 04/11/18 14:53 04/10/18 12:42 Levalbuterol HCl (Xopenex) 0.63 mg Q6H PRN HHN Shortness of Breath 04/09/18 20:00 04/13/18 19:59 04/10/18 12:43 Meropenem 1 gm/ Sodium Chloride 55 ml @ 110 mls/hr Q12H IVPB 04/10/18 05:00 04/12/18 16:59 04/10/18 05:23 Metoclopramide HCl (Reglan) 10 mg EVERY 8 HOURS GT 04/09/18 22:00 05/02/18 13:59 04/10/18 13:25 Micafungin Sodium 100 mg/Sodium Chloride 110 ml @ 110 mls/hr Q24H IVPB 04/10/18 12:00 04/14/18 11:59 04/10/18 11:21 Pantoprazole (Protonix) 40 mg EVERY 12 HOURS IVP 04/09/18 21:00 04/26/18 20:59 04/10/18 08:53 Polyethylene Glycol (Miralax) 17 gm DAILYPRN PRN GT Constipation 04/10/18 15:00 05/08/18 14:53 Allergies: Coded Allergies: No Known Allergies (Unverified , 03/06/18) ROS Limited/Unobtainable: Yes Subjective 87 YO F admitted with hematuria and gen weakness. Now pyelonephritis respiratory distress and sepsis. Cover for Int Med-Dr Scott. CALIST[place]. S/P tracheostomy 04/08/18 Objective Last Vital Signs Date Time Temp Pulse Resp B/P (MAP) Pulse Ox O2 Delivery O2 Flow Rate FiO2 04/10/18 16:00 45 04/10/18 16:00 Mechanical Ventilator Mechanical Ventilator 04/10/18 14:53 96 21 04/10/18 12:56 100 04/10/18 12:00 97.9 116/67 (83) 04/08/18 12:00 15.0 Laboratory Tests Test 04/10/18 04:05 White Blood Count 15.7 K/UL (4.8-10.8) H Red Blood Count 2.74 M/UL (4.20-5.40) L Hemoglobin 8.3 G/DL (12.0-16.0) L Hematocrit 25.7 % (37.0-47.0) L Mean Corpuscular Volume 94 FL (80-99) Mean Corpuscular Hemoglobin 30.5 PG (27.0-31.0) Mean Corpuscular Hemoglobin Concent 32.5 G/DL (32.0-36.0) Red Cell Distribution Width 13.9 % (11.6-14.8) Platelet Count 288 K/UL (150-450) Mean Platelet Volume 5.5 FL (6.5-10.1) L Neutrophils (%) (Auto) 77.2 % (45.0-75.0) H Lymphocytes (%) (Auto) 12.1 % (20.0-45.0) L Monocytes (%) (Auto) 9.6 % (1.0-10.0) Eosinophils (%) (Auto) 0.5 % (0.0-3.0) Basophils (%) (Auto) 0.7 % (0.0-2.0) Sodium Level 139 MMOL/L (136-145) Potassium Level 4.2 MMOL/L (3.5-5.1) Chloride Level 104 MMOL/L (98-107) Carbon Dioxide Level 32 MMOL/L (21-32) Anion Gap 3 mmol/L (5-15) L Blood Urea Nitrogen 14 mg/dL (7-18) Creatinine 0.5 MG/DL (0.55-1.30) L Estimat Glomerular Filtration Rate mL/min (>60) Glucose Level 142 MG/DL (74-106) H Calcium Level 7.5 MG/DL (8.5-10.1) L Total Bilirubin 0.3 MG/DL (0.2-1.0) Aspartate Amino Transf (AST/SGOT) 21 U/L (15-37) Alanine Aminotransferase (ALT/SGPT) 11 U/L (12-78) L Alkaline Phosphatase 110 U/L (46-116) Pro-B-Type Natriuretic Peptide 1939 pg/mL (0-125) H Total Protein 4.7 G/DL (6.4-8.2) L Albumin 1.2 G/DL (3.4-5.0) L Globulin 3.5 g/dL Albumin/Globulin Ratio 0.3 (1.0-2.7) L Intake and Output 04/09/18 04/10/18 19:00 07:00 Intake Total 860 ml 660 ml Output Total 510 ml 400 ml Balance 350 ml 260 ml Intake Free Water 200 ml IV Total 165 ml Tube Feeding 495 ml 540 ml Other 120 ml Output Urine Total 450 ml 250 ml Stool Total 60 ml 150 ml Objective PHYSICAL EXAMINATION: GENERAL: The patient is a well-developed and well-nourished white female, in no apparent distress. HEENT: Eyes, pupils are equal and responsive to light and accommodation. Extraocular movements are intact. NECK: Supple without lymphadenopathy. CHEST: Mech Vent; crackles and rales at bases; Decreased breath sounds at bilateral bases. Otherwise, clear to auscultation without wheezes or rales. CARDIOVASCULAR: Tachycardic. Regular rate and rhythm. S1, S2 are normal without murmurs, rubs, or gallops. ABDOMEN: Soft, nontender, and nondistended. Positive bowel sounds. No evidence of hepatosplenomegaly. Currently, no rebound or guarding noted. EXTREMITIES: Negative for clubbing, cyanosis, or edema. RECTAL/GENITAL: Deferred. NEUROLOGIC: Cranial nerves II through XII are grossly intact without focal deficits. Assessment/Plan Problem List: (1) Pyelonephritis Assessment & Plan: Pseudamonas and strep. See ID note-Continue meropenem and vanco (2) Sepsis (3) HTN (hypertension) Assessment & Plan: Currently hypotensive (4) Hypercholesteremia (5) Sacral decubitus ulcer, stage IV Assessment & Plan: See surgery note-dr Ramsay (6) Urinary tract infection Assessment & Plan: pseudamonas; continue cefepime per ID (7) Pneumonia Assessment & Plan: New RLL. Previously MRSA. Continue vanco and meropenem per ID (8) Atrial fibrillation with RVR Assessment & Plan: Continue digoxin and amiodrone per cardiology (9) Respiratory failure Assessment & Plan: S/P tracheostomy 04/08/18-see surgery and pulmonary note. Status: progressing Assessment/Plan Transfer to [facility] when bed available. Shankar Betts MD Apr 10, 2018 16:10
[2018-04-10] MEDS: Acetaminophen 650mg/20.3ml PEG PRN (16:53)
[2018-04-10] MEDS ORDERED: NS 275ml ONE (18:59)
--- NOTE | 2018-04-11 17:13 | Discharge Summary ---
Discharge Summary Discharge Summary _ DATE OF ADMISSION: 03/06/2018 DATE OF DISCHARGE: 04/10/2018 DISCHARGED BY: Dr. Davian Scott CONSULTANTS: Dr. Rishi Burk BRIEF HOSPITAL COURSE: Patient is a 88-year-old female, who presented with chief complaint of generalized weakness and hematuria. Patient is a resident of [facility] and patient was noted to develop hematuria on 03/06/2018. She also had altered mental status and generalized weakness. She has medical history significant for dysphagia, hypertensive heart disease, hypercholesterolemia and multple pressure ulcers. On evaluation at ED, blood pressure was 98/64, pulse rate 153. She was initially tachycardic with a heart rate of 140 and 150. She was given aggressive IV resuscitation and was started on broad-spectrum antibiotics. Blood work showed elevated WBC to 15. Lactic acid 3.6. Hemoglobin hematocrit were stable. Troponin was negative. Urinalysis showed 3+ leukocyte esterase, 30-40 RBC, too many to count WBC, negative nitrite. She had a chest x-ray that showed opacity in the right upper lobe. Influenza screen was negative. He was then admitted for evaluation of sepsis, pyelonephritis, pneumonia, hyponatremia and lactic acidosis. ID was consulted. Fever. She was given IV vancomycin and cefepime pending culture results. Baseline agitation and was given Zyprexa. Given nebulizer treatment and pulmonary toilet. Patient was severely malnourished. She was unable to follow commands and was unable to participate in swallow study. Dobbhoff was inserted. She was started on G-tube feedings. Patient will eventually need PEG. director of creative services was consulted to locate family. Blood culture showed growth of Proteus mirabilis and MRSA. She was continued on empiric IV vancomycin for probable MRSA pneumonia and cefepime for Proteus bacteremia and Pseudomonas UTI. She was noted to have sacral decubitus ulcer stage IV. Surgeon was consulted. She was given wound care. She was placed on air-fluidized mattress with frequent repositioning and offloading. Bioethics was consulted. Son is the only family member and s a signed form for preferred intensity of care signed on 02/10/2018 indicated that he wanted G- tube. Several attempts were made to reach the son regarding consent for PEG. Procedure had to be canceled due to no consent. On 03/18/2018, patient developed atrial fibrillation with rapid ventricular response. Administrative Hearing Officer was consulted. Atenolol was increased to 25 mg twice daily. Echocardiogram done showed ejection fraction of 65%. Patient converted to sinus rhythm with frequent PACs. CT of the abdomen chest and pelvis showed bilateral basilar pneumonia. Small to moderate pleural effusion. Flagyl was added. On 03/20/2018, she underwent excisional debridement of stage IV sacral decubitus ulcer. Procedure was indicated and recommended. Discussed with multidisciplinary team and team agreed that wounds should be debrided to help assist with healing. Bioethics committee recommended G-tube feeding. On 03/21/2018, she underwent EGD with PEG tube placement. On 03/23/2018, heart rate went up to 140s. She was given IV Cardizem 10 mg. He was eventually transferred to ICU and was started on Cardizem drip. He was placed on Venturi mask. She was started on IV pressors. Cardizem drip was eventually switched to IV amiodarone due to hypotension. She was taken off IV pressors on 03/24/2018. Atenolol was discontinued. She was started on Cardizem 3 times daily. On 03/28/2018, patient went into rapid A. fib. She was started on Cardizem drip. IV digoxin and Cardizem was ordered. Cardizem drip was eventually discontinued as blood pressure dropped to 70s. She was then given amiodarone drip. She was taken off IV pressors. Unable to switch to G-tube due to poor absorption residual. She was eventually changed to amiodarone GT. She was kept on IV digoxin. Heart rate was monitored. Reglan was increased to [id number] to reduce G-tube residuals. Patient was not tolerating G-tube feedings. On 04/03/2017, left sided thoracentesis yielding 200 cc of fluid. She continued to require high flow oxygen. She was on 100% NRM. On 04/08/2018, she underwent tracheostomy. She was continued on meropenem to cover for Pseudomonas given fever and leukocytosis. Micafungin was added. She eventually went back to sinus rhythm with PACs. She was on amiodarone and digoxin via G-tube. Vital signs are stable. Patient was afebrile. She was eventually discharged to a snf. FINAL DIAGNOSES: Sepsis, recurrent, possible line infection/Proteus bacteremia Septic shock, resolved Acute respiratory failure requiring tracheostomy Dysphagia status post EGD and PEG tube placement Sacral decubitus stage IV, present on admission Paroxysmal atrial fibrillation with RVR Pleural effusion requiring left thoracentesis UTI with Pseudomonas and enterococci MRSA pneumonia Severe protein calorie malnutrition Hyperlipidemia Multiple contractures/functional quadriplegia High risk for aspiration Dementia Severe pulmonary hypertension Status post excisional debridement of sacral decubitus ulcer on 03/20/[address] DISPOSITION: Patient was discharged to a SNF. DISCHARGE MEDICATIONS: Refer to Discharge Medication List. I have been assigned to complete a discharge summary on this account, I was not involved with the patient's management. Megan Carpio NP Apr 11, 2018 17:13
--- NOTE | 2018-04-12 18:46 | Physician Query ---
--------- THIS DOCUMENT IS A PERMANENT PART OF THE MEDICAL RECORD --------- PLEASE COMPLETE THE FORM BEFORE SIGNING Dear Dr. Latonia LEONARDO Date: _04/12/18 Meal Grinder Tender/CDS Name: DESIRE JORDAN CCDS___ Exercise your independent professional judgment when responding to query. Questions asked do not imply particular answer is desired or expected. We greatly appreciate your clarification on this issue. Because there is documentation in the medical record of "Debridement", clarification is needed. Your procedure note on 03/20/18 states: Excisional debridement of stage IV sacral decubitus ulcer "At this point, a #10 surgical scalpel was used to excise the fibrinous debris and necrotic eschar cap down to the healthy viable tissue. Once this was completed, a curette was used to curette areas of nonviable tissue and fibrinous debris down to healthy viable tissue." Depth was down to bone. thank you Please clarify the "depth" of tissue removed, e.g., skin, fascia, muscle or bone. Please document the appropriate type of Debridement on the Progress Notes or on this form as an addendum to the patient's record. (Sign and date all documents). ARIANA GUEVARA DATE MTDD
== END 2018-04-10 19:00 | DRG 3 ==
LOC: EDBD 09:57 → EMR 11:07 → 2E 11:48 → EDBEDREQ 12:08 → 2E 12:58 → 2W 03-07 16:22 → 2E 03-11 15:41 → 4E 03-14 16:15 → 2W 03-18 04:38 → 4E 03-22 → 2E 03-22 16:14 → ICU 03-23 15:55 → 2W 04-03 10:59 → ICU 04-08 13:00 → 2W 04-09 18:45
PROC: 0QB10ZZ Excision of Sacrum, Open Approach (ICD-10-PCS; 2018-03-20)
PROC: 0DH63UZ Insertion of Feeding Device into Stomach, Percutaneous Approach (ICD-10-PCS; principal; 2018-03-21 13:17)
PROC: 05HN33Z Insertion of Infusion Device into Left Internal Jugular Vein, Percutaneous Approach (ICD-10-PCS; 2018-03-23)
PROC: 0W9B3ZZ Drainage of Left Pleural Cavity, Percutaneous Approach (ICD-10-PCS; 2018-04-03)
PROC: 0B110F4 Bypass Trachea to Cutaneous with Tracheostomy Device, Open Approach (ICD-10-PCS; 2018-04-06)
PROC: 5A1945Z Respiratory Ventilation, 24-96 Consecutive Hours (ICD-10-PCS; 2018-04-08)
DX: A41.9 Sepsis, unspecified organism (principal); L89.154 Pressure ulcer of sacral region, stage 4; R53.2 Functional quadriplegia; J15.212 Pneumonia due to Methicillin resistant Staphylococcus aureus; E43 Unspecified severe protein-calorie malnutrition; G93.41 Metabolic encephalopathy; J96.00 Acute respiratory failure, unspecified whether with hypoxia or hypercapnia; R65.21 Severe sepsis with septic shock; N10 Acute pyelonephritis; J90 Pleural effusion, not elsewhere classified; E87.0 Hyperosmolality and hypernatremia; R31.9 Hematuria, unspecified; R13.10 Dysphagia, unspecified; I11.9 Hypertensive heart disease without heart failure; E78.5 Hyperlipidemia, unspecified; I48.0 Paroxysmal atrial fibrillation; F03.90 Unspecified dementia, unspecified severity, without behavioral disturbance, psychotic disturbance, mood disturbance, and anxiety; R62.7 Adult failure to thrive; Z68.26 Body mass index [BMI] 26.0-26.9, adult; E86.0 Dehydration; Z93.3 Colostomy status
CPT/HCPCS: 36415; 36600; 71045; 71260; 74018; 74177; 76942; 80048; 80053; 80069; 80162; 80202; 81003; 82164; 82270; 82378; 82550; 82553; 82607; 82746; 82803; 82962; 83540; 83550; 83605; 83615; 83735; 83880; 84100; 84439; 84443; 84484; 85007; 85025; 85044; 85060; 85610; 85651; 85730; 86140; 86710; 86850; 86900; 86901; 86920; 87040; 87070; 87081; 87086; 87181; 87205; 87324; 88104; 89051; 92610; 93005; 93306; 93970; 93971; 94002; 94003; 94150; 94640; 94660; 94664; 94760; 96361; 96365; 99285; J0282; J2370; J8499